=== PATIENT | female | born 1970 | race Caucasian/White ===

== ENCOUNTER 2018-01-05 12:19 | Emergency (ER) | payer MEDICAID, SELFPAY ==
[2018-01-05] VITALS (12 sets, daily range): BP systolic 120–139; BP diastolic 72–97; PULSE 55–90; RESP 10–16; TEMP 36.4–36.7; O2SAT 98–100
[2018-01-05] MEDS: Aspirin 325 MG TAB PO (12:52)
--- NOTE | 2018-01-05 12:55 | ED.GENADUL_ITS ---
Discharge Plan Disposition Patient Disposition: HOME Condition: Good Discharge Details Chief Complaint: Chest Pain Clinical Impression: Chest pain, pleuritic Primary Care Provider: Marlon Levine ED Provider: Suraj Rg Home Meds and New Rx's Prescriptions: Continue riboflavin (vitamin B2) [Vitamin B-2] 100 MG tablet 400 mg PO DAILY RF: 0 cyanocobalamin (vitamin B-12) [Vitamin B-12] 1,000 MCG tablet 1,000 mcg PO QAM RF: 0 ibuprofen 800 MG tablet 800 mg PO Q6H PRN PRN (Reason: pain & fever) Qty: 20 RF: 0 cholecalciferol (vitamin D3) [Vitamin D3] 1,000 unit Capsule 1,000 unit PO DAILY RF: 0 Discharge Instructions Instructions: Chest Pain (ED) Additional Instructions: follow up with your primary care provider within a week and discuss having stress testing performed if you have severe worsening of pain or difficulty breathing return to the emergency department you can take 600mg ibuprofen every 6 hours for pain as needed Discharge Data Discharge Physician: Suraj Rg Medical Decision Making 47 yo female who was treated for breast cancer over 7 years ago and otherwise has no current health problems, denies smoking hx, comes in with anterior sharp chest pain that radiates to the back and worsens with deep breaths since 930am. Denies pain with exertion, fevers, diaphoresis or n/v. Heart score is 1, ecg nondiagnostic, will send troponin. Wells score is moderate given pleuritic nature of pain, will obtain CTA. HAs normal vascular exam so doubt dissection at this time pt's pain resolved with asa, labs unremarkable, awaiting CT CT negative on my read and also per Dr. Tello, remains pain free and hd stable. IS over 3 hours from time of onset of pain so do not feel additional troponin beneficial at this time. ADvised f/u with pcp nexst week and return precautions given. I suspect this was musculoskeltal chest pain at this time Differential Diagnosis chest wall pain, pna, pe, acs Imaging Data Radiologic Study: Attestation: I personally reviewed and interpreted this imaging study as follows: Imaging: CT Scan My impression: NAD Radiologist's impression: NAD per dr. tello ECG Data Attestation: I personally reviewed and interpreted this ECG (s) as follows: Prior ECG tracings: available for review Interpretation: sinus rhythm, short pr, rate of 94, no acute st t wave changes HPI General Mode of arrival: ambulatory . Date/Time Provider Initiated Documentation: 01/05/18 12:40 . Limitations to Documentation: no limitations . Information obtained by: patient . History of Present Illness 47 year old F presents to the emergency department with the chief complaint of chest pain, described as moderate, with intensity rated at 5. Quality is described as stabbing, and is localized to the chest. Patient reports radiation to back. Patient started experiencing this hour(s) (3) and it has been constant. No relieving factors improve symptom(s), Other factors that worsen symptoms (deep breaths) . Patient notes no other symptoms.. Patient did receive the following treatments prior to arrival, none Related Data Home Medications Medication Instructions Recorded Confirmed cyanocobalamin (vitamin B-12) 1,000 mcg PO QAM 01/22/13 01/05/18 [Vitamin B-12] riboflavin (vitamin B2) [Vitamin 400 mg PO DAILY 01/22/13 01/05/18 B-2] ibuprofen 800 mg PO Q6H PRN PRN #20 tablet 07/28/15 01/05/18 cholecalciferol (vitamin D3) 1,000 unit PO DAILY 01/05/18 01/05/18 [Vitamin D3] Previous Rx's Medication Instructions Recorded ibuprofen 800 mg PO Q6H PRN PRN #20 tablet 07/28/15 Allergies Allergy/AdvReac Type Severity Reaction Status Date / Time erythromycin lactobionate Allergy Intermediate Hives Unverified 01/05/18 12:37 [From Erythrocin] General Stated Complaint: Chest Pain ELIEL: 2 Review of Systems Review of Systems All systems reviewed & are unremarkable except as noted in HPI and below Constitutional Denies chills, Denies fever(s) and Denies weakness Eyes Denies loss of vision ENT Denies change in voice Cardiovascular Denies dyspnea Respiratory Denies dyspnea Gastrointestinal Denies abdominal pain, Denies nausea and Denies vomiting Genitourinary Denies dysuria Musculoskeletal Denies joint swelling Integumentary/Breasts Denies rash Neurologic Denies loss of vision and Denies weakness Psychiatric Denies depression PFSH Medical History Breast CA Social History Smoking/Tobacco Use Status: Never Surgical History Breast, Mastectomy Bilateral breast reconstruction Exam Const General: no acute distress Orientation: alert HENMT Head: normal to inspection Ears: external ears normal General nose exam: external nose normal Mouth: moist mucous membranes Eyes General: appearance normal, both eyes and all related structures Neck Neck: normal visual inspection Resp Effort & Inspection: normal respiratory effort and able to speak in complete sentences Cardio Rate: regular rate Skin General skin exam: no rashes or lesions noted Neuro General: alert and oriented x3 Extrem General: normal to inspection Psych Mental Status: mental status grossly normal Course Vital Signs Temperature 36.4 C L 01/05/18 12:32 Pulse 90 01/05/18 12:32 Respiratory Rate 16 01/05/18 12:32 Blood Pressure 139/97 H 01/05/18 12:32 Pulse Oximetry 100 01/05/18 12:32 Temperature 36.4 C L 01/05/18 12:32 Temperature Source Temporal Artery Scan 01/05/18 12:32 Pulse 90 01/05/18 12:32 Respiratory Rate 11 L 01/05/18 12:45 Respiratory Effort 01/05/18 12:45 Respiratory Depth Normal 01/05/18 12:45 Respiratory Pattern Normal 01/05/18 12:45 Blood Pressure 139/97 H 01/05/18 12:32 Blood Pressure Position Supine 01/05/18 12:32 Pulse Oximetry 100 01/05/18 12:32 Oxygen Delivery Method Room Air 01/05/18 12:32 Oxygen Flow Rate 0 01/05/18 12:32 Pain Level 5 01/05/18 12:52
[2018-01-05 13:00] LABS: Abs Immature Grans 0.01 k/cumm (0.0-0.09); Absolute Basophil Count 0.01 k/cumm (0.0-0.2); Absolute Eosinophil Count 0.09 k/cumm (0.0-0.7); Absolute Lymphocyte Count 0.94 k/cumm (1.2-3.4); Absolute Monocyte Count 0.21 k/cumm (0.11-0.7); Absolute Neutrophil Count 1.99 k/cumm (1.2-6.7); Basophils % 0.3; Eosinophils % 2.8; HGB 13.5 g/dL (12.0-15.5); Immature Grans % 0.3; Lymphocytes % 28.9; Mean Corp. HGB Concentration 33.8 g/dL (32.0-36.0); Mean Corpuscular Hemoglobin 31.8 pg (27.0-33.0); Mean Corpuscular Volume 94.1 fL (80-95); Mean Platelet Volume 10.1 fL (8.0-11.0); Monocytes % 6.5; Neutrophils % 61.2; Platelet Count 161 x1000/uL (130-400); RBC 4.25 m/cumm (4.00-5.20); RBC Distribution Width 12.3 % (11.7-14.6); White Blood Cell Count 3.25 k/cumm (4.4-10.8)
[2018-01-05 13:11] LABS: PTT Activated 25.4 sec (21.0-31.4); Prothrombin Time 9.9 sec (9.3-10.8)
[2018-01-05 13:17] LABS: ALT 26 U/L (12-78); AST 21 U/L (15-37); Albumin 3.8 g/dL (3.4-5.0); Alkaline Phosphatase 110 U/L (46-116); BUN 15 mg/dL (7-18); Bilirubin, Total 0.4 mg/dL (0.2-1.0); CREATININE 0.61 mg/dL (0.55-1.02); Calcium 8.8 mg/dL (8.5-10.1); Chloride 106 mmol/L (98-107); Glucose 84 mg/dL (70-100); Magnesium 1.8 mg/dL (1.8-2.4); Potassium 3.9 mmol/L (3.5-5.1); Sodium 142 mmol/L (136-145); Total Protein 7.2 g/dL (6.4-8.2)
[2018-01-05 13:20] LABS: Troponin I < 0.02 ng/mL (0.00-0.06)
--- NOTE | 2018-01-05 13:49 | DI.CT_ITS ---
SYMPTOMS/DIAGNOSIS: PLEURITIC CHEST PAIN CHEST CT FOR PULMONARY EMBOLISM: CT angiography was performed with multi slice acquisition and multi planar and 3D reconstruction. There are no prior comparison exams. The pulmonary arteries, as well as aorta, are well opacified with IV contrast. No pulmonary emboli or aortic dissection is seen. The heart size is normal. There is no evidence of adenopathy, mass, infiltrates or effusions. There are surgical clips seen in the anterior chest wall. The visualized portions of the upper abdomen are unremarkable. Prominent dextroscoliosis is seen at the thoracolumbar junction. No lytic or blastic bony lesions are identified. IMPRESSION: Negative chest CT. No evidence of pulmonary emboli or other acute abnormality.
[2018-01-05] MEDS: Omnipaque 350 MG/ML 100 ML BTL IJ (14:00)
== END 2018-01-05 14:18 | disposition home or self-care (01) ==
PROVIDERS: Emergency Provider Emergency Medicine; PCP Internal Medicine
DX: R07.81 Pleurodynia (principal)
CPT/HCPCS: 36415; 71275; 80053; 93005; 99285; 83735; 84484; 85025; 85610; 85730; 93010; J3490

== ENCOUNTER 2018-01-11 10:36 | Outpatient (REF) | payer MEDICAID, SELFPAY ==
[2018-01-11 16:26] LABS: Cholesterol 308 mg/dL (50-200); HDL Cholesterol 94 mg/dL (40-60); LDL CHOLESTEROL 203 mg/dL (<100); Triglyceride 77 mg/dL (30-150)
== END 2018-01-11 10:56 ==
LOC: NCHCN 10:36
PROVIDERS: PCP Internal Medicine; Visit Provider Family Medicine
DX: Z13.220 Encounter for screening for lipoid disorders (principal); K26.9 Duodenal ulcer, unspecified as acute or chronic, without hemorrhage or perforation; R53.83 Other fatigue; Z87.19 Personal history of other diseases of the digestive system
CPT/HCPCS: 80061; 83721

== ENCOUNTER 2018-01-19 14:09 | Outpatient (REF) | payer MEDICAID, SELFPAY ==
[2018-01-19 21:54] LABS: Vitamin B12 1618 pg/mL (193-986)
== END 2018-01-19 14:29 ==
LOC: NCHCN 14:09
PROVIDERS: PCP Internal Medicine; Visit Provider Nurse Practitioner Family
DX: R51 Headache (principal); E78.5 Hyperlipidemia, unspecified; R07.9 Chest pain, unspecified; R13.10 Dysphagia, unspecified; L29.9 Pruritus, unspecified; G62.9 Polyneuropathy, unspecified
CPT/HCPCS: 82607

== ENCOUNTER 2018-01-19 15:50 | Outpatient (REF) | payer MEDICAID, SELFPAY ==
--- NOTE | 2018-01-19 13:40 | PAPFT_PTH ---
PATIENT: Antonia Jennings LOC: [facility]#:[id number] AGE/SX: 47/F ROOM: RE01/19/[address]: Judy Hawthorne : 1970 BED: DIS: 01/19/2018 SPEC #: [id number] RECD: 01/22/18 12:45 STATUS: [place] REQ #: [id number] PETE: 01/19/18 13:[address]: Judy Hawthorne DEPT: [facility] Cytology RECD BY: Alondra Wright ENTERED: 01/22/18 12:45 SP TYPE: PAPFT OTHR DR: Marlon Levine Tissues: 1 - CX/ENDOCX FOR PAP SMEARS Procedures: PAP THIN PREP/[facility] Screening HPV DNA PROBE Comments: [id number]
== END 2018-01-19 16:10 ==
LOC: NCHCN 15:50
PROVIDERS: PCP Internal Medicine; Visit Provider Nurse Practitioner Family
DX: Z12.4 Encounter for screening for malignant neoplasm of cervix (principal); Z11.51 Encounter for screening for human papillomavirus (HPV)
CPT/HCPCS: 88142; 87624

== ENCOUNTER 2018-01-24 00:53 | Outpatient (CLI) | payer MEDICAID, SELFPAY ==
--- NOTE | 2018-01-24 07:30 | MERGE_ITS ---
*[facility]* *[facility]* [address] [place] [address] Date of study: 01/24/2018 Transthoracic Echocardiography M-mode, complete 2D, complete spectral Doppler, and color Doppler *STUDY CONCLUSIONS* Summary: 1. Left ventricle: The cavity size was normal. Wall thickness was normal. Systolic function was normal. The estimated ejection fraction was 55%. Wall motion was normal; there were no regional wall motion abnormalities. Global longitudinal strain was normal at -20%. 2. Right ventricle: The cavity size was normal. Wall thickness was normal. Systolic function was normal. *PATIENT PRESENTATION* Height: 175.3cm ((69in) ) S/D Pressure: 114 / 74 Weight: 77.1kg ((169.6lb) ) BSA: 1.95m^2 Test start time: 07:46 AM. Test stop time: 09:00 AM. 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 This study was interpreted by [facility]. Pertinent images and digital data are archived for permanent storage and are available for subsequent review. No prior study was available for comparison. Study status: Routine. Transthoracic echocardiography. M-mode, complete 2D, complete spectral Doppler, and color Doppler. A Transthoracic Echocardiogram was performed. Scanning was performed from the parasternal, apical, subcostal, and suprasternal notch acoustic windows. Images were obtained using an [id number] cardiac ultrasound machine. Image quality was adequate. Study completion: The patient tolerated the procedure well. There were no complications. History: PMH: Chest pain. *CARDIAC ANATOMY* Left ventricle: The cavity size was normal. Wall thickness was normal. Systolic function was normal. The estimated ejection fraction was 55%. Wall motion was normal; there were no regional wall motion abnormalities. Global longitudinal strain was normal at -20%. Diastolic parameters were normal. Aortic valve: Trileaflet; normal thickness leaflets. Mobility was not restricted. Doppler: Transvalvular velocity was within the normal range. There was no stenosis. There was no significant regurgitation. VTI ratio of LVOT to aortic valve: 0.86. Valve area (VTI): 2.7cm^2. Indexed valve area (VTI): 1.4cm^2/m^2. Peak velocity ratio of LVOT to aortic valve: 0.92. Valve area (Vmax): 2.9cm^2. Indexed valve area (Vmax): 1.5cm^2/m^2. Mean velocity ratio of LVOT to aortic valve: 0.89. Valve area (Vmean): 2.8cm^2. Indexed valve area (Vmean): 1.4cm^2/m^2. Mean gradient (S): 2.2mm Hg. Peak gradient (S): 3.5mm Hg. Aorta: Aortic root: The aortic root was normal in size. Ascending aorta: The ascending aorta was normal in size. Mitral valve: Mildly thickened leaflets. Mobility was not restricted. Doppler: Transvalvular velocity was within the normal range. There was no evidence for stenosis. There was trivial regurgitation. Valve area by pressure half-time: 3.9cm^2. Indexed valve area by pressure half-time: 2cm^2/m^2. Peak gradient (D): 2.3mm Hg. Left atrium: The atrium was normal in size. Right ventricle: The cavity size was normal. Wall thickness was normal. Systolic function was normal. Pulmonic valve: Doppler: Transvalvular velocity was within the normal range. There was no evidence for stenosis. There was mild regurgitation. Peak gradient (S): 2.7mm Hg. Tricuspid valve: Structurally normal valve. Doppler: Transvalvular velocity was within the normal range. There was no evidence for stenosis. There was trivial regurgitation. Pulmonary artery: Pulmonary systolic pressure was within the normal range, in the range of 25mm Hg to 30mm Hg. Right atrium: The atrium was normal in size. Pericardium: There was no pericardial effusion. Systemic veins: Inferior vena cava: Well visualized. The vessel was patent and normal in size. The respirophasic diameter changes were in the normal range (greater than or equal to 50%). Baseline ECG: Normal sinus rhythm. Measurements Left ventricle Value Reference LV ID, ED, PLAX 4.6 cm 3.5 - 6.0 LV ID, ES, PLAX 3.2 cm 2.1 - 4.0 LV PW thickness, ED, PLAX 1.0 cm LV end-diastolic volume, 1-p A2C 83 ml LV ejection fraction, 1-p A2C 51 % LV end-diastolic volume, 1-p A4C 93 ml LV ejection fraction, 1-p A4C 59 % LV e', medial 0.109 m/sec LV E/e', medial 7 Ventricular septum Value Reference IVS thickness, ED, PLAX 1.2 cm LVOT Value Reference LVOT ID, A-P 2.0 cm LVOT area 3.1 cm^2 LVOT peak velocity, S 0.87 m/sec LVOT mean velocity, S 0.64 m/sec LVOT VTI, S 18.9 cm LVOT peak gradient, S 3 mm Hg LVOT mean gradient, S 1.8 mm Hg Stroke volume (SV), LVOT DP 59 ml Stroke index (SV/bsa), LVOT DP 30 ml/m^2 Aortic valve Value Reference Aortic valve peak velocity, S 0.9 m/sec Aortic valve mean velocity, S 0.72 m/sec Aortic valve VTI, S 22.0 cm Aortic mean gradient, S 2.2 mm Hg Aortic peak gradient, S 3.5 mm Hg VTI ratio, LVOT/AV 0.86 Aortic valve area, VTI 2.7 cm^2 Velocity ratio, peak, LVOT/AV 0.92 Aortic valve area, peak velocity 2.9 cm^2 Velocity ratio, mean, LVOT/AV 0.89 Aortic valve area, mean velocity 2.8 cm^2 Aortic valve area/bsa, mean velocity 1.4 cm^2/m^2 Aorta Value Reference Aortic root ID, ED 3.2 cm Ascending aorta ID, A-P, S 3.3 cm RVOT Value Reference RVOT VTI, S 16.1 cm Left atrium Value Reference LA ID, A-P, ES 3.0 cm LA ID/bsa, A-P 1.5 cm/m^2 <=2.2 LA area, ES, A4C 13.2 cm^2 8.8 - 23.4 LA area, ES, A2C 13 cm^2 LA volume/bsa, ES, 1-p A4C 19 ml/m^2 LA volume, ES, 2-p 33 ml LA volume/bsa, ES, 2-p 17 ml/m^2 LA/aortic root ratio 0.94 Mitral valve Value Reference Mitral E-wave peak velocity 0.76 m/sec Mitral A-wave peak velocity 0.42 m/sec Mitral deceleration time 194 ms 150 - 230 Mitral pressure half-time 56 ms Mitral peak gradient, D 2.3 mm Hg Mitral E/A ratio, peak 1.82 Mitral valve area, PHT, DP 3.9 cm^2 Pulmonary veins Value Reference Pulmonary vein peak velocity, S 0.59 m/sec Pulmonary vein peak velocity, D 0.61 m/sec Pulmonary vein velocity ratio, peak, 0.97 S/D Pulmonary vein A-wave reversal peak 0.31 m/sec velocity Tricuspid valve Value Reference Tricuspid regurg peak velocity 2.5 m/sec Tricuspid peak RV-RA gradient 24.5 mm Hg Right atrium Value Reference RA area, ES, A4C 14.2 cm^2 8.3 - 19.5 Pulmonic valve Value Reference Pulmonic peak gradient, S 2.7 mm Hg Legend: (L) and (H) jd values outside specified reference range. I have personally reviewed the images and have reviewed and edited the reported findings. Electronically signed by Akshat Perez 01/24/2018 10:11
== END 2018-01-24 01:13 ==
PROVIDERS: PCP Internal Medicine; Visit Provider Family Medicine
DX: R07.89 Other chest pain (principal)
CPT/HCPCS: 93306

== ENCOUNTER 2018-03-02 11:51 | Outpatient (REF) | payer MEDICAID, SELFPAY ==
--- NOTE | 2018-03-02 11:30 | ENDO_PTH ---
PATIENT: Antonia Jennings LOC: [facility] U#:[id number] AGE/SX: 47/F ROOM: RE03/02/[address]: Svetlana Cavanaugh MD : 1970 BED: DIS: 03/02/2018 SPEC #: [id number] RECD: 03/02/18 12:56 STATUS: [place] REQ #: [id number] PETE: 03/02/18 11:[address]: Svetlana Cavanaugh DEPT: Surgical Specimen RECD BY: Alondra Wright ENTERED: 03/02/18 12:56 SP TYPE: Endo OTHR DR: Marlon Levine Tissues: 1 - ENDOCERVICAL BX/CURRETTE Procedures: GROSS AND MICRO LEVEL 4 Comments: [id number]
== END 2018-03-02 12:11 ==
LOC: LBN 11:51
PROVIDERS: PCP Internal Medicine; Visit Provider Obstetrics & Gynecology
DX: N88.8 Other specified noninflammatory disorders of cervix uteri (principal); R87.610 Atypical squamous cells of undetermined significance on cytologic smear of cervix (ASC-US)
CPT/HCPCS: 88305

== ENCOUNTER 2019-01-15 09:28 | Day surgery (SDC) | payer MEDICAID, SELFPAY ==
[2019-01-15 09:47] VITALS: BP 128/88; PULSE 93; RESP 17; TEMP 36; O2SAT 99
--- NOTE | 2019-01-15 10:26 | W.PM.DSUDISC ---
Discharge Plan Disposition Patient Disposition: HOME Condition: Good Discharge Details Reason For Visit: Colonoscopy Attending Provider: Zuleika Holguin Primary Care Provider: Marlon Levine Home Meds and New Rx's Prescriptions: Continued ibuprofen [Advil] 200 mg tablet 600 mg PO QID PRNRF: 0 fluticasone propionate 50 mcg/actuation spray,suspension 2 spray BERNABE BID RF: 0 Excedrin Migraine 250-250-65 mg tablet 2 tab PO Q6H PRNRF: 0 acetaminophen [Tylenol] 325 mg capsule 325 mg PO Q6H PRNRF: 0 magnesium oxide 500 mg capsule 500 mg PO DAILY RF: 0 docusate sodium [Colace] 100 mg capsule 200 mg PO DAILY RF: 0 polyethylene glycol 3350 [Miralax] 17 gram/dose powder 17 gm PO DAILY Qty: 119 RF: 1 cinnamon bark [Cinnamon] 500 mg capsule 500 mg PO DAILY RF: 0 ascorbic acid (vitamin C) 500 mg capsule 500 mg PO DAILY RF: 0 riboflavin (vitamin B2) [Vitamin B-2] 100 MG tablet 400 mg PO DAILY RF: 0 cholecalciferol (vitamin D3) [Vitamin D3] 1,000 unit Capsule 1,000 unit PO DAILY RF: 0 Discontinued polyethylene glycol 3350 17 gram/dose powder 238 g PO ONCE Qty: 238 RF: 0 bisacodyl 5 mg tablet,delayed release (DR/EC) 5 mg PO ONCE Qty: 4 RF: 0 Discharge Instructions Additional Instructions: Findings: Your colonoscopy was normal Follow up: Plan for routine screening in 10 years or sooner if symptoms occur. Try daily Miralax for constipation. If this is not helpful, please contact my office to discuss further testing. Please call if you develop: fevers >101.5 Nausea or Vomiting Abdominal pain that is not transient DAY SURGERY UNIT POST COLONOSCOPY INSTRUCTIONS 1. Because there will be medication in your system for the next 24 hours, you may feel a little sleepy. Your coordination will be affected. Therefore: a. Do not drive or operate dangerous equipment for 24 hours. b. Do not drink alcohol beverages for 24 hours (not even beer). c. Plan to go home and rest for the day. 2. Generally there are no restrictions on your activity after a day or so has gone by, but you may feel a bit fatigued for a few days. 3 After you arrive home you may have a light meal and return to a normal diet as you can tolerate it without feeling sick to your stomach. 4. After surgery, you may feel pain or discomfort. This should be only transient, but if it persists please contact your doctor. 5. If there are any questions regarding the findings of your procedure, please feel free to contact your doctor. 6. If you are unable to contact your doctor with a problem, contact the hospital at [phone]. 7. Continue all your regular medications unless directed otherwise. I understand the above instructions and have no questions. Signature of Patient or Responsible Adult Escort Date/Time Name of Responsible Adult Escort Signature of Nurse Date/Time Stand Alone Forms: Edgard Garcia (AMAURYU) Activity:: Activity as Tolerated Diet:: As Tolerated Discharge Orders Discharge Orders: Discharge Order (Routine); Ordered 01/15/19 Ordered By: Zuleika Holguin DS: Diagnosis Discharge Diagnosis (1) Constipation: Status: Acute
[2019-01-15] MEDS: Lactated Ringers 1,000 ML 80 ML IV (10:36)
[2019-01-15 11:56] VITALS: BP 134/86; PULSE 67; RESP 17; TEMP 36; O2SAT 100
--- NOTE | 2019-01-15 13:11 | COLE_ITS ---
DATE OF PROCEDURE: January 15, 2019 PREOPERATIVE DIAGNOSIS: Change in bowel habits. POSTOPERATIVE DIAGNOSIS: Normal colon. PROCEDURE: Colonoscopy. SURGEON: Zuleika Holguin M.D. ANESTHESIA: General. INDICATIONS: This is a 48-year-old woman who notes increasing constipation. She will often have to manually assist a bowel movement. She has not had a prior colonoscopy. There is no family history o f colon cancer. PROCEDURE: The patient was placed in the left Monteiro position. Propofol was titrated to sedation. Di gital rectal examination revealed normal sphincter tone. No other abnormalities were identified. Th e scope was advanced to the cecum without difficulty. The ileocecal valve and appendiceal orifice we re clearly identified. The scope was slowly withdrawn with no significant abnormalities seen within the ascending, transverse, descending, sigmoid colon or rectum. Her prep was noted to be marginal an d I did spend a lot of time suctioning thick but liquid stool. A small polyp could be missed. The r ectum was normal, including on retroflex view. She tolerated the procedure well and was stable to re covery. She will try titrating MiraLax to effect and if there is no improvement here then considerat ion could be given to referral to a colorectal specialist for more functional testing, such as defeco graphy. She will need a follow-up screening again in ten years or sooner if symptoms indicate. cc: Marlon Levine M.D.
== END 2019-01-15 12:20 | disposition home or self-care (01) ==
PROVIDERS: PCP Internal Medicine; Visit Provider Surgery
PROC: 0DJD8ZZ Inspection of Lower Intestinal Tract, Via Natural or Artificial Opening Endoscopic (ICD-10-PCS; CPT 45378; principal; 2019-01-15 10:30)
DX: K59.00 Constipation, unspecified (principal); G47.33 Obstructive sleep apnea (adult) (pediatric)
CPT/HCPCS: 45378

== ENCOUNTER 2019-02-17 11:59 | Emergency (ER) | payer MEDICAID, SELFPAY ==
[2019-02-17] VITALS (26 sets, daily range): BP systolic 117–146; BP diastolic 73–101; PULSE 77–118; RESP 12–23; TEMP 36.8–36.9; O2SAT 95–98
[2019-02-17] MEDS: Acetaminophen 500 MG TAB 1000 MG PO (13:31)
[2019-02-17] MEDS: Metoclopramide 10 MG/2 ML VIAL IVP (13:32)
[2019-02-17] MEDS: Normal Saline 50 ML 200 ML (13:32)
[2019-02-17] MEDS: Ketorolac 15 MG/ML VIAL IVP (13:33)
[2019-02-17 14:05] LABS: Abs Immature Grans 0.01 k/cumm (0.0-0.09); Absolute Basophil Count 0.01 k/cumm (0.0-0.2); Absolute Eosinophil Count 0.09 k/cumm (0.0-0.7); Absolute Lymphocyte Count 1.11 k/cumm (1.2-3.4); Absolute Monocyte Count 0.44 k/cumm (0.11-0.7); Basophils % 0.2; Eosinophils % 1.5; HCT 46.9 % (36.0-46.0); HGB 15.6 g/dL (12.0-15.5); Immature Grans % 0.2; Mean Corp. HGB Concentration 33.3 g/dL (32.0-36.0); Mean Corpuscular Hemoglobin 30.6 pg (27.0-33.0); Mean Corpuscular Volume 92.1 fL (80-95); Monocytes % 7.1; Platelet Count 178 x1000/uL (130-400); RBC 5.09 m/cumm (4.00-5.20); RBC Distribution Width 12.6 % (11.7-14.6); White Blood Cell Count 6.16 k/cumm (4.4-10.8)
--- NOTE | 2019-02-17 14:15 | ED.GENADUL_ITS ---
Discharge Plan Disposition Patient Disposition: HOME Condition: Improving Discharge Details Chief Complaint: GenMedical Clinical Impression: Acute dehydration, Headache Primary Care Provider: Marlon Levine ED Provider: Judy Gardner Home Meds and New Rx's Prescriptions: No Action ibuprofen [Advil] 200 mg tablet 600 mg PO QID PRNRF: 0 fluticasone propionate 50 mcg/actuation spray,suspension 2 spray BERNABE BID RF: 0 Excedrin Migraine 250-250-65 mg tablet 2 tab PO Q6H PRNRF: 0 acetaminophen [Tylenol] 325 mg capsule 325 mg PO Q6H PRNRF: 0 magnesium oxide 500 mg capsule 500 mg PO DAILY RF: 0 docusate sodium [Colace] 100 mg capsule 200 mg PO DAILY RF: 0 polyethylene glycol 3350 [Miralax] 17 gram/dose powder 17 gm PO DAILY Qty: 119 RF: 1 cinnamon bark [Cinnamon] 500 mg capsule 500 mg PO DAILY RF: 0 ascorbic acid (vitamin C) 500 mg capsule 500 mg PO DAILY RF: 0 riboflavin (vitamin B2) [Vitamin B-2] 100 MG tablet 400 mg PO DAILY RF: 0 cholecalciferol (vitamin D3) [Vitamin D3] 1,000 unit Capsule 1,000 unit PO DAILY RF: 0 Discharge Instructions Instructions: Dehydration (ED), General Headache (ED) Additional Instructions: Drink plenty of fluids. Observe closely for any signs of dehydration Rest activities as tolerated. Use Tylenol or Motrin for headache management if needed [id number]. Recheck with primary care doctor in the next 2 to 3 days for any persistence of your symptoms. Return for any worsening, concerns or alarming symptoms sooner if needed. Medical Decision Making Is a 48-year-old patient who presents after diagnosis of influenza with 5 days of illness. Patient is concerned primarily with dehydration. Patient reports she has had decreased p.o. intake but no associated nausea, vomiting or diarrhea. Has had night sweats and fevers. Patient is being managed with conservative treatments for her diagnosed influenza. Patient denies increasing difficulty breathing with shortness of breath or wheezing. Has no active chest pain. A mild productive cough. Patient reports decreased urine output and fatigue. Patient reports widespread body ache. Patient does appear dehydrated and is notably tachycardic at this time. IV fluids ordered. Patient also is reporting a developing migraine. Patient reports headache is mild to moderate at this time certainly not the worst of her life. But she feels she is likely going to have a migraine her headache is not managed. She tried ibuprofen at 6 AM without relief. Toradol ordered for patient's migraine in addition to IV fluids. Chest x-ray ordered, labs ordered for reevaluation. Patient feeling significantly improved after IV fluids and Toradol. Patient feels normal. Headache is resolved. Patient feels stable for discharge home at this time. Chest x-ray does not reveal any sign of infection. There is no evidence of acute cardiopulmonary disease on patient's x-ray. Patient counseled regarding influenza and dehydration. At this time there is no sign of secondary infection. The patient was stable and requested discharge. Prior to discharge, my usual and customary return precautions were reviewed with the patient - this included follow-up instructions and reasons to return to the Emergency Department if conditions worsens, does not improve as expected, or other new concerns arise. Patient was counseled regarding conservative treatments, but continued observation for HPI General Date/Time Provider Initiated Documentation: 02/17/19 12:09 . HPI Narrative: Is a very pleasant 48-year-old patient who presents to the emergency room today for concerns of dehydration. Patient reports she was swabbed positive for influenza. Patient reports she has had 5 days of upper respiratory symptoms specifically nasal congestion, cough, sinus pressure. Patient reports no associated nausea, vomiting or diarrhea. Patient denies significant abdominal pain however she reports significant fatigue, malaise, achiness. Patient has had decreased appetite for the last several days. Today patient began to feel quite dry and dehydrated. Patient reports decreased urine output but no associated urinary urgency, frequency or dysuria. Patient reports she does have a migraine history and reports onset of a mild headache. She is concerned with potential developing migraine. Patient reports she did take ibuprofen at approximately 6:00 this morning. Patient denies difficulty breathing or shortness of breath or wheezing. Mild cough present with occasional sputum production. No concerns of chest or back pain. Patient primarily concerned with possible dehydration and onset of headache. No associated neck pain. Related Data Home Medications Medication Instructions Recorded Confirmed riboflavin (vitamin B2) [Vitamin 400 mg PO DAILY 01/22/13 02/17/19 B-2] cholecalciferol (vitamin D3) 1,000 unit PO DAILY 01/05/18 02/17/19 [Vitamin D3] acetaminophen 325 mg capsule 325 mg PO Q6H PRN 10/31/18 11/24/19 [id number] 250 2 tab PO Q6H PRN 01/24/18 02/17/19 mg-250 mg-65 mg tablet fluticasone propionate 50 2 spray BERNABE BID gm 01/24/18 02/17/19 mcg/actuation nasal spray,suspension ibuprofen 200 mg tablet 600 mg PO QID PRN tab 01/24/18 02/17/19 magnesium oxide 500 mg capsule 500 mg PO DAILY cap 01/24/18 02/17/19 docusate sodium 100 mg capsule 200 mg PO DAILY cap 12/24/18 02/17/19 polyethylene glycol 3350 17 17 gm PO DAILY #119 gm 12/24/18 02/17/19 gram/dose oral powder ascorbic acid (vitamin C) 500 mg 500 mg PO DAILY 01/07/19 02/17/19 capsule cinnamon bark 500 mg capsule 500 mg PO DAILY 01/07/19 02/17/19 Previous Rx's Medication Instructions Recorded polyethylene glycol 3350 17 17 gm PO DAILY #119 gm 12/24/18 gram/dose oral powder Allergies Allergy/AdvReac Type Severity Reaction Status Date / Time chlorhexidine Allergy Intermediate hives, itch Verified 02/17/19 12:17 erythromycin lactobionate Allergy Intermediate Hives Unverified 02/17/19 12:17 [From Erythrocin] General Stated Complaint: GenMedical ELIEL: 3 Review of Systems All systems reviewed & are unremarkable except as noted in HPI and below Constitutional Constitutional: Reports chills, Reports fatigue, Reports headache(s), Reports malaise, Reports night sweats and Reports poor appetite Eyes Eyes: Denies eye discharge ENT Ears, Nose, Mouth, and Throat: Denies otalgia, Reports headache(s), Reports nasal congestion, Reports nasal discharge and Reports sinus pressure Cardiovascular Cardiovascular: Denies dyspnea Respiratory Respiratory: Reports cough, Denies pain on inspiration, Denies pain with cough, Denies dyspnea and Denies wheezing Gastrointestinal Gastrointestinal: Denies abdominal pain, Denies diarrhea, Denies nausea and Denies vomiting Genitourinary Genitourinary: Denies hematuria and Denies urinary urgency Neurologic Neurologic: Reports headache(s) Endocrine Endocrine: Reports fatigue Allergic/Immunologic Allergic/Immunologic: Denies wheezing PFSH Medical History Abnormal Pap smear of cervix (Resolved) Breast CA (Resolved) Chemotherapy-induced peripheral neuropathy (Chronic) Chest pain (Resolved) DANTE III (cervical intraepithelial neoplasia III) (Acute 12/01/15) Dysphagia (Resolved) Gastritis (Acute) Generalized pruritus (Acute) Headache (Resolved) History of breast cancer (Resolved) Hx of breast cancer (Acute 01/22/13) Hyperlipidemia (Acute) Jaw pain (Resolved) LGSIL on Pap smear of cervix (Acute 11/16/15) Migraine (Chronic) Neuropathy (Resolved) Pancreatitis (Chronic) Sleep apnea (Acute) Social History Smoking/Tobacco Use Status: Never Alcohol Intake: current Alcohol Intake frequency: holidays/special occasions only Alcohol type: hard liquor Drug use: Never Substance use type: does not use 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 Well hydrated. Alert and alert. HENMT: Head nomocephalic, normal to inspection. Atraumatic. Hearing grossly normal. External ear canal no erythema or swelling. TM normal bilaterally. Nose normal to inspection. No rhinnorhea. Normal facial exam. Oral mucosa dry. Tounge normal. Dentition normal. Normal posterior oropharynx. Uvula midline. EYES: General normal appearance. Alignment normal. Eyelids normal. Conjunctiva n ormal. Sclera normal. PERRL. NECK: Normal visual inspection. FROM. Cervical lymphadenopathy present. Trachea midline. No Midline tenderness. No meningeal signs CHEST: Normal insepection of the chest. RESP: Normal respiratory effort. Speaking full sentences. No cough. No wheezing. No retractions. Clear to auscaltation. Breath sound equal and present bilaterally. CARDIO: No JVD. Normal PMI. Regular Rate. Regular Rhythm. Normal peripheral pulses. GI: Normal inspection of abdomen. No distension. Soft. Nontender. Bowel sounds present in all 4 quadrants. No rebound. No gaurding. MUSCULOSKELETAL: Normal Gait. FROM of all extremities. Distal neurovascularly intact. Sensation intact distally. SKIN: Normal. Dry. No rashes. NEURO: Alert and awake. Speech clear. PSYCH: Normal affect. Cooperative. Course Vital Signs Vital signs: Vital Signs Temperature 36.8 C 02/17/19 12:05 Pulse 118 H 02/17/19 12:05 Respiratory Rate 16 02/17/19 12:05 Blood Pressure 146/101 H 02/17/19 12:05 Pulse Oximetry 97 02/17/19 12:05 Temperature 36.8 C 02/17/19 12:05 Temperature Source Oral 02/17/19 12:05 Pulse 87 02/17/19 13:31 Pulse 86 02/17/19 13:31 Respiratory Rate 16 02/17/19 13:31 Respiratory Effort 02/17/19 12:14 Respiratory Depth Normal 02/17/19 12:14 Respiratory Pattern Normal 02/17/19 12:14 Blood Pressure 137/81 02/17/19 13:31 Blood Pressure Mean 95 02/17/19 13:31 Blood Pressure Position Sitting 02/17/19 12:05 Pulse Oximetry 98 02/17/19 13:31 Oxygen Delivery Method Room Air 02/17/19 12:05 Oxygen Flow Rate 0 02/17/19 12:05 Pain Level 7 02/17/19 13:31 Lab/Test Results Lab/Test Results: Laboratory Tests Range/Units 02/17/19 13:55 WBC (4.4-10.8) k/cumm 6.16 RBC (4.00-5.20) m/cumm 5.09 Hgb (12.0-15.5) g/dL 15.6 H Hct (36.0-46.0) % 46.9 H MCV (80-95) fL 92.1 MCH (27.0-33.0) pg 30.6 MCHC (32.0-36.0) g/dL 33.3 RDW (11.7-14.6) % 12.6 Plt Count (130-400) x1000/uL 178 MPV (8.0-11.0) fL 10.0 Immature Gran % 0.2 Neutrophils % 73.0 Lymphocytes % 18.0 Monocytes % 7.1 Eosinophils % 1.5 Basophils % 0.2 Absolute Neutrophils (1.2-6.7) k/cumm 4.50 Absolute Lymphocytes (1.2-3.4) k/cumm 1.11 L Absolute Monocytes (0.11-0.7) k/cumm 0.44 Absolute Eosinophils (0.0-0.7) k/cumm 0.09 Absolute Basophils (0.0-0.2) k/cumm 0.01
[2019-02-17 14:17] LABS: ALT 21 U/L (14-59); AST 18 U/L (15-37); Albumin 3.9 g/dL (3.4-5.0); Alkaline Phosphatase 131 U/L (46-116); BUN 15 mg/dL (7-18); Bilirubin, Total 0.3 mg/dL (0.2-1.0); CREATININE 0.59 mg/dL (0.55-1.02); Calcium 9.1 mg/dL (8.5-10.1); Chloride 103 mmol/L (98-107); Glucose 95 mg/dL (74-106); Potassium 4.1 mmol/L (3.5-5.1); Sodium 142 mmol/L (136-145)
--- NOTE | 2019-02-17 14:25 | DI.RAD_ITS ---
EXAM: XR CHEST 2V PA LATERAL INDICATION: cough, known flu r/o pneumonia. COMPARISON: No exams were available for comparison TECHNIQUE: 2D digital imaging was performed. FINDINGS: Heart size is normal. Multiple surgical clips are seen over the left chest. The lungs appear clear. Scoliosis is noted. IMPRESSION: No acute abnormality.
--- NOTE | 2019-02-17 14:53 | DI.VRAD_ITS ---
PROCEDURE INFORMATION: Exam: XR Chest, 2 Views Exam date and time: 02/17/2019 1:18 PM Age: 48 years old Clinical history: Cough TECHNIQUE: Imaging protocol: XR of the chest Views: 2 views. COMPARISON: CR (CHEST, RT) 07/28/2015 1:33 PM FINDINGS: Surgical clips projected over the left lung unchanged from the prior exam. The lung peters are clear bilaterally. No focal pulmonary consolidation is present. The cardiac silhouette is within normal limits. The costophrenic angles are sharp. The bony structures appear unremarkable. IMPRESSION: No evidence of acute cardiopulmonary disease. Dictated and Authenticated by: Micheal Collins MD. Ordering:BRITTON Kim MD
== END 2019-02-17 15:55 | disposition home or self-care (01) ==
PROVIDERS: Emergency Provider Physician Assistant; PCP Internal Medicine
DX: E86.0 Dehydration (principal); R51 Headache; J10.89 Influenza due to other identified influenza virus with other manifestations
CPT/HCPCS: 36415; 80053; 96374; 96375; 99284; 71046; 85025; J1885; J2765

== ENCOUNTER 2019-10-08 10:57 | Outpatient (REF) | payer MEDICAID, SELFPAY ==
[2019-10-08 21:52] LABS: TSH 1.57 uIU/mL (0.36-3.74); Vitamin B12 1042 pg/mL (193-986)
[2019-10-08 22:13] LABS: FREE T4 1.07 ng/dL (0.76-1.46)
== END 2019-10-08 11:17 ==
LOC: NCHCN 10:57
PROVIDERS: PCP Internal Medicine; Visit Provider Internal Medicine
DX: G60.9 Hereditary and idiopathic neuropathy, unspecified (principal)
CPT/HCPCS: 82607; 84439; 84443

== ENCOUNTER 2019-10-25 02:07 | Outpatient (CLI) | payer MEDICAID, SELFPAY ==
[2019-10-25 13:01] LABS: Hemoglobin A1C 5.7 % (3.8-5.6)
[2019-10-28 12:28] LABS: Albumin 65.3 % (55.8-66.1); Total Protein 6.9 g/dL (6.3-8.2)
== END 2019-10-25 02:27 ==
PROVIDERS: PCP Internal Medicine; Visit Provider Psychiatry & Neurology Neurology
DX: G62.9 Polyneuropathy, unspecified (principal)
CPT/HCPCS: 36415; 83036; 84165

== ENCOUNTER 2020-01-03 14:29 | Outpatient (REF) | payer MEDICAID, SELFPAY ==
--- NOTE | 2020-01-03 13:45 | PAPFT_PTH ---
PATIENT: Antonia Jennings LOC: [facility] U#:[id number] AGE/SX: 49/F ROOM: RE01/03/[address]: Mauro Garcia MD : 1970 BED: DIS: 01/03/2020 SPEC #: [id number] RECD: 01/03/20 17:15 STATUS: [place] REBlake #: [id number] PETE: 01/03/20 13:[address]: Mauro Garcia DEPT: [facility] Cytology RECD BY: Kierra Cohen ENTERED: 01/03/20 17:24 SP TYPE: PAPFT OTHR DR: Marlon Levine Tissues: 1 - CX/ENDOCX FOR PAP SMEARS Procedures: PAP THIN PREP/UVM Screening HPV DNA PROBE Comments: [id number]
== END 2020-01-03 14:49 ==
LOC: LBN 14:29
PROVIDERS: PCP Internal Medicine; Visit Provider Obstetrics & Gynecology
DX: Z12.4 Encounter for screening for malignant neoplasm of cervix (principal); Z11.51 Encounter for screening for human papillomavirus (HPV)
CPT/HCPCS: 88142; 87624

== ENCOUNTER 2020-06-03 17:25 | Outpatient (CLI) | payer MEDICAID, SELFPAY ==
--- NOTE | 2020-06-03 17:15 | RT.EKG_ITS ---
APPROVED REPORT Exam: Resting ECG Patient Location: O HR:88 bpm ECG Measurements Heart Rate 88 AXIS OH 116 P 71 QRSd 89 QRS 69 QT 363 T 46 QTc 439 Conclusion Sinus rhythm...normal P axis, V-rate 60- 99
== END 2020-06-03 17:26 | disposition home or self-care (01) ==
LOC: DI.CM 17:28
PROVIDERS: PCP Internal Medicine; Visit Provider Nurse Practitioner Family
DX: R55 Syncope and collapse (principal); R42 Dizziness and giddiness; R00.0 Tachycardia, unspecified
CPT/HCPCS: 93010

== ENCOUNTER 2020-06-09 02:34 | Outpatient (CLI) | payer MEDICAID, SELFPAY ==
[2020-06-09 12:32] LABS: Abs Immature Grans 0.01 10^3/uL (0.0-0.06); Absolute Basophil Count 0.03 10^3/uL (0.0-0.2); Absolute Eosinophil Count 0.15 10^3/uL (0.0-0.7); Absolute Lymphocyte Count 1.44 10^3/uL (1.2-3.4); Absolute Monocyte Count 0.35 10^3/uL (0.1-0.8); Absolute Neutrophil Count 2.59 10^3/uL (1.2-6.7); Basophils % 0.7; Eosinophils % 3.3; HCT 43.1 % (36.0-46.0); HGB 14.1 g/dL (11.2-15.7); Immature Grans % 0.2; Lymphocytes % 31.5; MCH 30.2 pg (27.0-33.0); MCHC 32.7 % (32.0-36.0); MCV 92.3 fL (80-95); MPV 10.8 fL (8.0-11.0); Monocytes % 7.7; Neutrophils % 56.6; Nucleated RBC 0 %; Platelet Count 222 10^3/uL (130-400); RBC 4.67 10^6/uL (3.93-5.22); RDW 12.4 % (11.7-14.6); RDW-SD 41.6 fL; WBC 4.57 10^3/uL (4.4-10.8)
[2020-06-09 12:56] LABS: Anion Gap 7.8 mmol/L (3-11); BUN 13 mg/dL (7-18); CO2 29.2 mmol/L (21.0-32.0); CREATININE 0.7 mg/dL (0.55-1.02); Calculated LDL 145 mg/dL (<100); Chloride 105 mmol/L (98-107); Cholesterol 238 mg/dL (<200); Glucose 79 mg/dL (74-106); HDL Cholesterol 82 mg/dL (40-60); Potassium 4.2 mmol/L (3.5-5.1); Sodium 142 mmol/L (136-145); TSH 2.09 uIU/mL (0.36-3.74); Triglyceride 55 mg/dL (<150)
[2020-06-09 13:18] LABS: NT-proBNP 133 pg/mL (<300)
== END 2020-06-09 02:35 | disposition home or self-care (01) ==
LOC: LOS 02:34
PROVIDERS: PCP Internal Medicine; Visit Provider Nurse Practitioner Family
DX: R42 Dizziness and giddiness (principal); E78.5 Hyperlipidemia, unspecified; R00.0 Tachycardia, unspecified; R00.2 Palpitations; R06.02 Shortness of breath
CPT/HCPCS: 36415; 80048; 80061; 83880; 84443; 85025

== ENCOUNTER 2020-06-09 13:31 | Outpatient (CLI) | payer MEDICAID, SELFPAY ==
--- NOTE | 2020-06-29 12:12 | ZIOP_ITS ---
Date of service: 06/29/20 Time of Service: 12:13 14 Day [employer] Specialist Referring Provider:: Jamar Indications:: Syncope Note: This is a 14-day monitor order for indication of syncope. ?The patient was in normal sinus rhythm for the majority of the recording with an average heart rate of 85 bpm. ?There were 14 episodes of supraventricular tachycardia with the longest lasting 6 beats. None of these were symptomatic. There were rare PACs ?There was 1 episode of NSVT lasting 4 beats. This too was asymptomatic. ?There were no episodes of atrial fibrillation, no pauses greater than 3 seconds and no evidence of high degree heart block. ?There were 9 patient triggered events 1 of which was associated with sinus tachycardia the rest with sinus rhythm and occasional PAC.
== END 2020-06-09 13:32 | disposition home or self-care (01) ==
LOC: RT 13:33
PROVIDERS: PCP Internal Medicine; Visit Provider Nurse Practitioner Family
CPT/HCPCS: 93246

== ENCOUNTER 2020-06-12 05:00 | Outpatient (CLI) | payer MEDICAID, SELFPAY ==
--- NOTE | 2020-06-12 07:45 | DI.US_ITS ---
EXAM: US CAROTID CLINICAL HISTORY: dizziness,R42. TECHNIQUE: Ultrasound carotids performed using grayscale, color-flow, and spectral Doppler imaging. COMPARISON: No exams were available for comparison FINDINGS: RIGHT CAROTID ARTERY: Plaque: None Velocity elevation: None. LEFT CAROTID ARTERY: Plaque: None Velocity elevation: None. VERTEBRAL ARTERIES: Antegrade flow. Measurements: R Bulb: 65.6cm/s PS / 13.5cm/s ED R CCA: 79.1cm/s PS / 20.6cm/s ED R ECA: 71.3cm/s PS / 11.6cm/s ED R ICA Prox: 70.1cm/s PS /20.6cm/s ED R ICA Mid: 92.5cm/s PS / 33.4cm/s ED R ICA Distal: 99.6cm/s PS /32.8cm/s ED R Vert: 56.6cm/s PS / 13.5cm/s ED R SVR: 1.26 R DVR: 1.59 L Bulb: 45cm/s PS /9cm/s ED L CCA: 81cm/s PS / 21.2cm/s ED L ECA: 80.3cm/s PS /10.3cm/s ED L ICA Prox:72cm/s PS / 21.9cm/s ED L ICA Mid: 99cm/sPS / 39.2cm/s ED L ICA Distal: 108cm/s PS / 37.3cm/s ED L Vert: 48.2cm/s PS / 16.1cm/s ED L SVR: 1.33 L DVR: 1.76 IMPRESSION: Normal. No significant plaque. No evidence for hemodynamically significant carotid stenosis. Criteria for Carotid Stenosis: Normal: ICA PSV <125 cm/s no plaque or intimal thickening is visible. <50% stenosis: ICA PSV <125 cm/s and plaque or intimal thickening is visible. 50-69% stenosis: ICA PSV is 125-250 cm/s and plaque is visible. >70% stenosis to near occlusion: ICA PSV >250 cm/s with visible plaque and luminal narrowing. DATA REPOSITORY:
== END 2020-06-12 05:20 ==
PROVIDERS: PCP Internal Medicine; Visit Provider Nurse Practitioner Family
DX: R42 Dizziness and giddiness (principal)
CPT/HCPCS: 93880

== ENCOUNTER 2020-07-06 01:40 | Outpatient (CLI) | payer MEDICAID, SELFPAY ==
--- NOTE | 2020-07-06 | ETT_ITS ---
APPROVED REPORT Exam: Exercise Treadmill Patient Location: Out-Patient Room/Bed: Stress Nurse: Margot Navarro RN Ordering Provider:MORRIS CARTAGENA, Contact Number: [phone] BMI: 27.76 Baseline Rhythm: Sinus Rhythm Indications: Near syncope, nonsustained ventricular tachycardia Medical History Medical History: ÁNGEL, breast cancer, chemo-induced peripheral neuropathy, HLD, overweight Cardiac Medications: None Allergies: chlorhexidine, erythromycin, lactobionate Cardiac Risk Factors: HLD, family hx Previous Cardiac Procedures: None Pretest Chest Pain Characteristics: None Exercise History: Sedentary Physical Disabilities: None Lung Sounds: Clear to auscultation Heart Sounds: Regular Stress Test Details Test: Exercise stress testing was performed using a Altaf protocol. Rest Stress HR Resting HR Supine: 71 bpm Max Heart Rate (APMHR): 172 bpm Resting HR Standin bpm Target HR (85% APMHR): 146 bpm Max HR Achieved: 176 bpm % of APMHR: 102 Recovery HR: 94 bpm HR response to stress: Normal HR response to stress BP Resting BP Supine: 122/74 mmHg Resting BP Standin/76 mmHg Max BP: 150/70 mmHg Recovery BP: 118/72 mmHg BP response to stress: Normal blood pressure response to stress. ECG Resting ECG: Sinus Rhythm Ectopy: None Stress ECG: Sinus Tachycardia ST Change: Horizontal ST depression Lead(s): II, III Stage: [address] Deviation: 1 mm Arrhythmia: None Recovery ECG: Sinus Rhythm Recovery ST Change: Horizontal ST depression Lead(s): II, III Recovery ST Deviation: 1 mm Recovery Arrhythmia: PVC Clinical Reason for Termination: Fatigue Stress Symptoms: General Fatigue Exercise duration: 9 min33 sec Highest Stage Reached: Stage 4: 4.2 mph at 16% grade. Exercise capacity: 11.05 METs Bain Treadmill Score: 4 Rate Pressure Product: [id number] Stress ECG Conclusion 1. The resting electrocardiogram showed left ventricular hypertrophy with minor repolarization abnorm alities 2. Patient exercised on the Altaf protocol and completed a workload of 11.05 METS, stopping due to fa tigue 3. Normal heart rate and blood pressure response to exercise. The patient achieved greater than 100% of predicted heart rate for age 4. At peak exercise there was inferolateral ST depression consistent with myocardial ischemia . the ST depressions gradually improved by minute 5 of recovery 5. Rare PVCs were seen Bain Treadmill Score is 4 which is Moderate risk. Stress Test Summary STAGE Time (mins) Speed (mph) Grade (%) HR BP SYMPTOMS METS Supine 71 122/74 Standing 89 120/76 1 3 1.7 10 126 128/72 4.6 2 6 2.5 12 152 140/70 7 3 9 3.4 14 171 148/66 10.2 1 min recovery 150 150/70 3 min recovery 103 136/72 6 min recovery 94 118/72
== END 2020-07-06 02:00 ==
PROVIDERS: PCP Internal Medicine; Visit Provider Internal Medicine
DX: R55 Syncope and collapse (principal); I47.2 Ventricular tachycardia; E78.5 Hyperlipidemia, unspecified; Z82.49 Family history of ischemic heart disease and other diseases of the circulatory system; I49.3 Ventricular premature depolarization
CPT/HCPCS: 93017

== ENCOUNTER 2020-07-10 03:51 | Outpatient (CLI) | payer MEDICAID, SELFPAY ==
--- NOTE | 2020-07-10 08:31 | DI.US_ITS ---
APPROVED REPORT EXAM: Comprehensive 2D, Doppler, and color-flow Echocardiogram Patient Location: Out-Patient Beef Grader: Kary Green RDCS (AE) Indications: Nonsustained ventricular tachycardia, Near syncope Other Information Study Quality: Adequate Conclusion Normal left ventricular wall thickness and chamber size. Estimated ejection fraction is 60%. There are no segmental wall motion abnormalities Normal right ventricular size and systolic function Both atria are normal in size There are no structural valvular abnormalities Trace to mild mitral and tricuspid regurgitation. Estimated right ventricular systolic pressure is n ormal at 21 mmHg Borderline dilated ascending aorta Wall motion Left Ventricle The left ventricle is normal size. The left ventricular systolic function is normal. The left ventric ular ejection fraction is within the normal range. There is normal left ventricular wall thickness. T here is normal LV segmental wall motion. There is no ventricular septal defect visualized. LVEF is 57 %. Right Ventricle The right ventricle is normal size. The right ventricular systolic function is normal. The RVSP is 21 .8mmHg. Atria The left atrium size is normal. The right atrium size is normal. The interatrial septum is intact wit h no evidence for an atrial septal defect. Aortic Valve The aortic valve is normal in structure. Aortic valve is trileaflet. There is no aortic valvular sten osis. No aortic regurgitation is present. Mitral Valve The mitral valve is normal in structure. No evidence of mitral valve stenosis. Trace to mild mitral r egurgitation. Tricuspid Valve The tricuspid valve is normal in structure. There is no tricuspid valve stenosis. Trace to mild tricu spid regurgitation. Pulmonic Valve The pulmonary valve is normal in structure. There is no pulmonic valvular stenosis. Trace pulmonic re gurgitation. Great Vessels The aortic root is normal in size. The ascending aorta is mildly dilated. Aortic arch is not well vis ualized. IVC is normal in size and collapses >50% with inspiration. Pericardium There is no pericardial effusion. 2D Dimensions IVSD d PLAX 0.94 cm F: 0.6-1.0 LV Vol A2C d MOD 99.2 mL LVPW d PLAX 0.92 cm F: 0.6 - 1.0 LV Vol A4C d MOD 118.5 mL LVID d PLAX 4.49 cm F: 3.8 - 5.2 LA vol/ BSA A2C s A-L 20.2 mL/m2 LVDs 3.10 cm F: 2.2 - 3.5 LA vol/ BSA A4C s A-L 20.3 mL/m2 Ao Root d 3.23 cm F: 2.7 - 3.3 LA Vol/ BSA Biplane s A-L 21.8 mL/m2 RA Area A4C 12.58 cm2 LA Area A4C s MOD 16.06 cm2 RA Vol/ BSA A4C s A-L 15.9 mL/m2 LA Area A2C s MOD 14.87 cm2 Ao Asc Diam d 3.36 cm F: 2.3 - 3.1 LV EF A4C MOD 57.4 % LV EF Teichholz 57.7 % LV EF A2C MOD 57.5 % LVEF (Melton's) 57.91 % F: 54 - 74 LV EF Biplane MOD 57.9 % LV Volume 84.66 mL F: 46 - 106 SV 65.50 mL LV Volume Index 42.11 mL/m2 F: 29 - 61 SV Index 32.55 mL/m2 LV Vol Biplane MOD 113.1 mL FS 30.20 % M-Mode TAPSE 2.52 cm (M/F) >1.7 LV Diastology MV E' medial 0.127 (>0.07 m/s) E/A Ratio 1.4 LV E/e MED 6.35 (<14) MV E Vmax 0.81 (0.4-1.3 m/s) MV E' lateral 0.135 (>0.1 m/s) MV A Vmax 0.60 (0.4-1.3 m/s) LV E/e LAT 6.00 (<14) MV E/A Ratio 1.31 MV E/E' medial 6.39 MV E/E' lateral 6.01 Aortic Valve LVOT Area 2.62 cm2 AoV Area Vmax 2.38 cm2 LVOT Vmax 1.02 m/s AoV Area/ BSA (Vmax) 1.18 cm2/m2 LVOT Mean Sukh. 0.71 m/s ANNMARIE Mean Sukh. 2.07 cm2 LVOT Peak Grad 4.1 mmHg ANNMARIE Mean Sukh. Index 1.03 cm2/m2 LVOT Mean Grad 2.3 mmHg LVOT VTI 0.218 m LVOT Diam s 1.80 cm AoV Vmax 1.12 m/s Velocity Ratio 0.91 AoV Mean Sukh. 0.90 m/s AoV Peak Grad 5.0 mmHg LVOT SV 57.08 mL AoV Mean Grad 3.3 mmHg AoV VTI 0.219 m AoV Area VTI 2.60 cm2 AoV Area/ BSA (VTI) 1.29 cm/m2 Mitral Valve MV DT 164 (160-240 msec) MV PHT 48 msec MV Area PHT 4.62 cm2 MV VTI 0.263 m MV VTI Annulus 0.286 m MV Area VTI 2.38 (4.0-6.0 cm2) Pulmonary Valve PV Vmax 0.90 (0.5-1.5 m/s) RVOT Peak Gr. 1.51 mmHg PV Peak Grad 3.2 mmHg RVOT Mean Gr. 0.70 mmHg PV Mean Grad 1.7 mmHg RVOT VTI 0.115 m PV VTI 0.178 m RVOT Vmax 0.62 m/s Tricuspid Valve TR Peak Grad 18.8 mmHg TR Vmax 2.17 m/s RA Pressure 3.00 mmHg RVSP (TR) 21.8 mmHg
== END 2020-07-10 04:11 ==
PROVIDERS: PCP Internal Medicine; Visit Provider Internal Medicine
DX: I47.2 Ventricular tachycardia (principal); R55 Syncope and collapse
CPT/HCPCS: 93306

== ENCOUNTER 2020-08-13 01:32 | Outpatient (CLI) | payer MEDICAID, SELFPAY ==
--- NOTE | 2020-08-13 07:15 | DI.NM_ITS ---
APPROVED REPORT Exam: Exercise Treadmill Patient Location: Out-Patient Room/Bed: Stress Nurse: Margot Navarro RN Ordering Provider:FELY KESSLER, Contact Number: [phone] BMI: 28.05 Baseline Rhythm: Sinus Rhythm Comment: Minimal ST depression, inferior leads Medical History Medical History: Hyperlipidemia, ÁNGEL, gastritis, duodenal ulcer, checmo-thearpy induced peripheral ne uropathy Cardiac Medications: Atorvastatin, aspirin Allergies: Chlorhexidine, erythromycin, lactobionate Cardiac Risk Factors: Hyperlipidemia, family hx Previous Cardiac Procedures: None Pretest Chest Pain Characteristics: None Exercise History: Sedentary Physical Disabilities: None Lung Sounds: Clear to auscultation Heart Sounds: Regular Stress Test Details Test: Exercise stress testing was performed using a Altaf protocol. Nuclear Acquisition: Rest Tc-99m/Stress Tc-99m 1 day Rest Isotope: Tc-99m Sestamibi. Dose: 11.3 Date: 08/13/2020 Injection Time: 0945 Stress Isotope: Tc-99m Sestamibi. Dose: 37.0 Date: 08/13/2020 Injection Time: 1237 HR Resting HR Supine: 76 bpm Max Heart Rate (APMHR): 172 bpm Resting HR Standin bpm Target HR (85% APMHR): 146 bpm Max HR Achieved: 171 bpm % of APMHR: 99 Recovery HR: 95 bpm HR response to stress: Normal HR response to stress BP Resting BP Supine: 118/80 mmHg Resting BP Standin/82 mmHg Max BP: 158/78 mmHg Recovery BP: 126/74 mmHg BP response to stress: Normal blood pressure response to stress. ECG Resting ECG: Sinus Rhythm Ectopy: None Stress ECG: Sinus Tachycardia ST Change: Horizontal and downsloping ST depression Lead(s): II, III, aVF Stage: [address] Deviation: 1 mm Arrhythmia: None Recovery ECG: Sinus Rhythm Recovery ST Change: Horizontal ST depression Lead(s): II, III, AVF Recovery ST Deviation: 0.5 mm Recovery Arrhythmia: Rare PVC Clinical Reason for Termination: Fatigue Stress Symptoms: General Fatigue Exercise duration: 9 min34 sec Highest Stage Reached: Stage 4: 4.2 mph at 16% grade. Exercise capacity: 11.10 METs Rate Pressure Product: 40752 Stress ECG Conclusion 1. The patient exercised for 9 minutes (11 METS). Patient's heart rate and blood pressure augmented appropriately with stress. 2. At peak stress patient had 1 mm horizontal and downsloping ST depressions in the inferior leads. Stress Test Summary STAGE Time (mins) Speed (mph) Grade (%) HR BP SYMPTOMS METS Supine 76 118/80 Standing 89 120/82 1 3 1.7 10 120 126/78 4.6 2 6 2.5 12 146 144/76 7 3 9 3.4 14 162 10.2 1 min recovery 143 158/78 3 min recovery 98 140/74 6 min recovery 95 126/74 MPI Conclusion Ejection fraction was 52% with stress. There were no wall motion abnormalities. There is no evidence of ischemia on the imaging portion exam. This likely represents a normal SPECT stress test and a false positive abnormal ECG result.
== END 2020-08-13 01:52 ==
PROVIDERS: PCP Internal Medicine; Visit Provider Internal Medicine Cardiovascular Disease
DX: R94.39 Abnormal result of other cardiovascular function study (principal)
CPT/HCPCS: 78452; 93017

== ENCOUNTER 2020-08-26 15:08 | Outpatient (REF) | payer MEDICAID, SELFPAY | END 2020-08-26 15:09 | disposition home or self-care (01) | LOC: NCHCN 15:08 | PROVIDERS: PCP Internal Medicine; Visit Provider Internal Medicine | DX: R30.0 Dysuria (principal) | CPT/HCPCS: 87077; 87086; 87186 ==

== ENCOUNTER 2020-09-19 02:08 | Emergency (ER) | payer MEDICAID, SELFPAY ==
[2020-09-19 02:10] VITALS: BP 150/88; PULSE 88; RESP 16; TEMP 36.6; O2SAT 98
--- NOTE | 2020-09-19 02:51 | ED.GENADUL_ITS ---
Discharge Plan Disposition Patient Disposition: HOME Condition: Stable Discharge Details Clinical Impression: Achilles tendinitis, right leg Primary Care Provider: Marlon Levine ED Provider: Chuck Faulkner Home Meds and New Rx's Prescriptions: No Action No Known Home Meds RF: 0 Discharge Instructions Instructions: Tendinitis (ED) Additional Instructions: Use crutches and only light weightbearing with right foot. Rest over the next few days. Please take ibuprofen over the counter. Take 600mg by mouth every 6 hours as needed for pain. Please contact orthopedics to arrange follow-up. Return to the ER for any worsening or new concerning symptoms. Referrals: [facility] [Provider Group] Discharge Data Discharge Date/Time-TO BE ENTERED AT DEPARTURE: 09/19/20 03:30 Medical Decision Making 50-year-old female here with 6 weeks of heel pain, worse today after running. Exam is consistent with Achilles tendinitis. Lidocaine patch was applied to the area and patient was provided ibuprofen 800 mg. x-ray of the ankle was reviewed and interpreted by me: No fracture, small calcification at insertion site for Achilles tendon. Will provide crutches and have the patient follow-up with orthopedics. HPI General Mode of arrival: ambulatory . Date/Time Provider Initiated Documentation: 09/19/20 02:36 . Limitations to Documentation: no limitations . Information obtained by: patient . HPI Narrative: 50-year-old female presents with chief complaint of right heel pain. Patient notes that she has had pain in her right heel for the past 6 weeks. Pain is waxed and waned. Today she went for a hike and had to at 1 point run out of the [employer] for emergency and thinks she may have injured her heel worse. Pain is now severe described as burning. Pain is localized to the posterior ankle and calcaneus. Worse with ambulation. Tylenol did not help. She has mild associated swelling of her heel. she has no associated rash. No associated fever. No other joint swelling. Related Data Home Medications Medication Instructions Recorded Confirmed Unknown [No Known Home Meds] 09/19/20 09/19/20 Allergies Allergy/AdvReac Type Severity Reaction Status Date / Time chlorhexidine Allergy Intermediate hives, itch Verified 09/19/20 02:20 erythromycin lactobionate Allergy Intermediate Hives Unverified 09/19/20 02:20 [From Erythrocin] General Stated Complaint: Orthopedic ELIEL: 4 Review of Systems Constitutional Constitutional: Denies fever(s) Musculoskeletal Musculoskeletal: Reports as per HPI Integumentary/Breasts Skin/Breast: Reports rash (Chronic dry skin distal lateral leg extremity, unchan ged) [facility] Medical History Arm paresthesia, left Bilateral carpal tunnel syndrome Chemotherapy-induced peripheral neuropathy Chest pain DANTE III (cervical intraepithelial neoplasia III) (12/01/15) Cubital tunnel syndrome on right Duodenal ulcer Dysphagia Gastritis Generalized pruritus Headache Hx of breast cancer (01/22/13) 01/2005. L breast T2N0M0. Infiltrating ductal carcinoma. s/p chemo and XRT. 07/2007. T1N0M0. Adjuvant chemo. 10/2008.Bilateral prophylactic mastectomy. Staged breast reconstruction Neg BRCA-1,2. ANGELA neg. Hyperlipidemia Jaw pain Knee joint pain LGSIL on Pap smear of cervix (11/16/15) Menopause Migraine ÁNGEL (obstructive sleep apnea) Pancreatitis Pruritus Shoulder joint pain Sleep apnea Surgical History breast reconstruction Breast, Mastectomy Bilateral H/O tubal ligation Hx of Achilles tendon repair Family History Father Hypothyroidism Hyperlipidemia CAD (coronary artery disease) Depression COPD (chronic obstructive pulmonary disease) Mother Hypothyroidism Goiter Memory impairment Sister Breast cancer Social History Smoking/Tobacco Use Status: Never Smoking risk assessment performed?: Yes Alcohol Intake: current Alcohol Intake frequency: holidays/special occasions only Alcohol type: hard liquor Drug use: Never Substance use type: does not use Household members: significant other Housing: house Number of Children: 1 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 Seatbelt use: always Do you feel safe at home: Yes Do you feel safe in your relationship?: Yes Exam Const General: cooperative and no acute distress Cardio Rate: regular rate and not tachycardic Rhythm: regular rhythm Skin General skin exam: no rashes or lesions noted Neuro General: patient alert, patient awake, patient oriented x3 and tone normal Extrem General: no edema Right lower extremity: foot Details: normal capillary refill, tenderness Location: of the calcaneus Details: point tenderness (Posteriorly at insertion of Achilles tendon), warmth (Mild at insertion of Achilles tendon with associated), tendon exam Details: active flexion normal and active extension normal, motor-sensory exam Details: light-touch normal and other (Negative Nolan test) Course Vital Signs Vital signs: Vital Signs Temperature 36.6 C 09/19/20 02:10 Pulse 88 09/19/20 02:10 Respiratory Rate 16 09/19/20 02:10 Blood Pressure 150/88 H 09/19/20 02:10 Pulse Oximetry 98 09/19/20 02:10 Temperature 36.6 C 09/19/20 02:10 Temperature Source Oral 09/19/20 02:10 Pulse 88 09/19/20 02:10 Respiratory Rate 16 09/19/20 02:10 Respiratory Effort Non-Labored 09/19/20 02:21 Blood Pressure 150/88 H 09/19/20 02:10 Blood Pressure Position Sitting 09/19/20 02:10 Pulse Oximetry 98 09/19/20 02:10 Oxygen Delivery Method Room Air 09/19/20 02:10 Oxygen Flow Rate 0 09/19/20 02:10 Pain Level 8 09/19/20 02:10
--- NOTE | 2020-09-19 03:04 | DI.RAD_ITS ---
Exam(s) XR ANKLE RT COMPLETE EXAM: XR ANKLE RT COMPLETE CLINICAL HISTORY: pain. TECHNIQUE: 2D digital imaging was performed. COMPARISON: No exams were available for comparison FINDINGS: Is no evidence of fracture nor widening of the mortise. No osteochondral defects of the talar dome. Moderate size inferior calcaneal spur is noted as is calcification at the insertional aspect of the Achilles tendon on the posterior calcaneus. IMPRESSION: No fractures evident DATA REPOSITORY: RADIATION DOSE DELIVERED:
[2020-09-19] MEDS: Lidocaine 5% Patch 1 PATCH TP (03:29)
[2020-09-19] MEDS: Ibuprofen 800 MG TAB PO (03:29)
--- NOTE | 2020-09-19 04:14 | DI.VRAD_ITS ---
PROCEDURE INFORMATION: Exam: XR Right Ankle Exam date and time: 09/19/2020 2:38 AM Age: 50 years old Clinical indication: Pain; Ankle; Right; Patient HX: Was running and heard a pop. TECHNIQUE: Imaging protocol: XR Right ankle. Views: 3 or more views. COMPARISON: NM WHOLE BODY BONE SCAN 06/13/2017 1:08 PM FINDINGS: Bones/joints: Plantar calcaneal spurring. Posterior calcaneal enthesophyte. No displaced fractures or dislocations. Soft tissues: Grossly unremarkable. IMPRESSION: No displaced fractures or dislocations. Dictated and Authenticated by: Tex Ness MD. Ordering:LISA Woods MD
--- NOTE | 2020-09-19 11:44 | NUR.NOTE ---
Nursing Note: Was asked by night staff to call patient so see if she would like the ankle walking boot. I called the patient and she stated that yes she did want it and would I ask her father, who is here with her mother, to bring it home for her. He stated he would and the boot was given to him. Ingrid Yu
== END 2020-09-19 03:30 | disposition home or self-care (01) ==
PROVIDERS: Emergency Provider Student in an Organized Health Care Education/Training Program; PCP Internal Medicine
DX: M76.61 Achilles tendinitis, right leg (principal)
CPT/HCPCS: 99283; 73610

== ENCOUNTER 2020-10-05 03:04 | Outpatient (CLI) | payer MEDICAID, SELFPAY ==
[2020-10-05 12:26] LABS: Source Nasal/Nares
[2020-10-05 16:02] LABS: COVID-19 PCR Negative (Negative)
== END 2020-10-05 03:05 | disposition home or self-care (01) ==
LOC: LBO 03:04
PROVIDERS: PCP Internal Medicine; Visit Provider Student in an Organized Health Care Education/Training Program
DX: Z20.822 Contact with and (suspected) exposure to COVID-19 (principal); Z01.818 Encounter for other preprocedural examination
CPT/HCPCS: 87635

== ENCOUNTER 2020-10-06 10:33 | Day surgery (SDC) | payer MEDICAID, SELFPAY ==
[2020-10-06 10:40] VITALS: BP 123/89; PULSE 90; RESP 16; TEMP 36.1; O2SAT 97
[2020-10-06] MEDS: Lactated Ringers 1,000 ML 80 ML IV (11:08)
--- NOTE | 2020-10-06 11:12 | W.ANESPRE ---
General Info Date of Service Date Performed: 10/06/20 Height: 5 ft 9 in Weight: 89.358 kg Body Mass Index (BMI): 29.0 Surgical Procedure: Operation Date: 10/06/20 12:55 Proposed Procedures Side Surgeon p Ankle Achilles Tendon Debridement Right Sumit Saucedo MD s CALCANEAL OSTECTOMY WITH HAGLAND RESECTION AND ACHILLES REPAIR Right Sumit Saucedo MD Meds Allergies and Home Medications Allergies Allergy/AdvReac Type Severity Reaction Status Date / Time chlorhexidine Allergy Intermediate hives, itch Verified 10/06/20 10:50 erythromycin lactobionate Allergy Intermediate Hives Verified 10/06/20 10:50 [From Erythrocin] Home Medication Medication Instructions Recorded Unknown [No Known Home Meds] 09/19/20 Current Visit Medications: Current Medications Generic Name Dose Route Start Last Admin Trade Name Freq PRN Reason Stop Dose Admin Ringer's Solution 1,000 mls @ 80 mls/hr 10/06/20 06:00 10/06/20 11:08 IV 11/04/20 23:59 80 mls/hr INFUSION JAREN Administration Cefazolin Sodium/Dextrose 2 gm in 50 mls @ 100 mls/hr 10/06/20 06:00 Ancef Duplex IVPB 10/06/20 16:00 PREOP JAREN IV Miscellaneous Supplies 1 each 10/06/20 06:00 Iv Access IV 11/04/20 23:59 DIRECTED JAREN Sodium Chloride 0 ml 10/06/20 06:00 Normal Saline Flush 10 Ml Syr IV 11/04/20 23:59 PRN PRN Sodium Chloride 0 ml 10/06/20 06:00 Normal Saline 10 Ml Vial IJ 11/04/20 23:59 DIRECTED PRN Sterile Water 0 ml 10/06/20 06:00 Water,Injection,Sterile 10 Ml Vial IJ 11/04/20 23:59 DIRECTED PRN PFSH Active Problems Active Problems: Problem Status Onset Code High risk HPV infection 10/13/15 B97.7 Moderate dysplasia of cervix (DANTE II) 12/01/15 N87.1 Constipation K59.00 Achilles tendinitis, right leg M76.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 states she had this fully worked up, it was not chest pain, but she was dehydrated. DANTE III (cervical intraepithelial neoplasia III) (12/01/15) Cubital tunnel syndrome on right Duodenal ulcer Dysphagia Gastritis Generalized pruritus Headache Hx of breast cancer (01/22/13) 01/2005. L breast T2N0M0. Infiltrating ductal carcinoma. s/p chemo and XRT. 07/2007. T1N0M0. Adjuvant chemo. 10/2008.Bilateral prophylactic mastectomy. Staged breast reconstruction Neg BRCA-1,2. ANGELA neg. Hyperlipidemia Jaw pain Knee joint pain LGSIL on Pap smear of cervix (11/16/15) Menopause Migraine ÁNGEL (obstructive sleep apnea) Pancreatitis Pruritus Shoulder joint pain Sleep apnea Surgical History Surgical History breast reconstruction Breast, Mastectomy Bilateral H/O tubal ligation Hx of Achilles tendon repair Tobacco Smoking/Tobacco Use Status: Never Alcohol Alcohol Intake: current Alcohol intake frequency: holidays/special occasions only Alcohol type: hard liquor Substance Use Substance use: Never Substance use type: does not use Vital Signs and Lab Results Vital Signs Most Recent Vital Signs in EMR: Most Recent Vital Signs Temp Pulse Resp BP Pulse Ox 36.1 C L 90 16 123/89 97 10/06/20 10:40 10/06/20 10:40 10/06/20 10:40 10/06/20 10:40 10/06/20 10:40 Lab Results Blood Type / Crossmatch: No Data to Display Complete Blood Count: No Data to Display Complete Metabolic Panel: No Data to Display Liver Function Panel: No Data to Display Coagulation Panel: No Data to Display Cardiac Panel: No Data to Display Arterial Blood Gas: No Data to Display Venous Blood Gas: No Data to Display Pancreas Panel: No Data to Display Thyroid Panel: No Data to Display Infectious Disease: Coronavirus (COVID-19)(PCR) Negative (Negative) 10/05/20 08:43 10/05/20 Coronavirus 2019 Source Nasal/Nares 10/05/20 08:43 10/05/20 Blood Cultures: No Data to Display Toxicology Panel: No Data to Display Panel: No Data to Display Imaging and Studies Imaging and Studies EKG Summary: DATE/TIME OF SERVICE: 06/03/20 1746 Conclusion Sinus rhythm...normal P axis, V-rate 60- 99 Stress Test Summary: Date of Exam: 08/13/20Sex: F Admission Date: 08/13/20 MPI Conclusion Ejection fraction was 52% with stress. There were no wall motion abnormalities. There is no evidence of ischemia on the imaging portion exam. This likely represents a normal SPECT stress test and a false positive abnormal ECG result. Echocardiogram Summary: Date of Exam: 07/10/20Sex: F Admission Date: 07/10/20 Indications: Nonsustained ventricular tachycardia, Near syncope Conclusion Normal left ventricular wall thickness and chamber size. Estimated ejection fraction is 60%. There are no segmental wall motion abnormalities Normal right ventricular size and systolic function Both atria are normal in size There are no structural valvular abnormalities Trace to mild mitral and tricuspid regurgitation. Estimated right ventricular systolic pressure is normal at 21 mmHg Borderline dilated ascending aorta Carotid Artery Summary:: Date of Exam: 06/12/20Sex: F Admission Date: 06/12/20 EXAM: US CAROTID CLINICAL HISTORY: dizziness,R42. IMPRESSION: Normal. No significant plaque. No evidence for hemodynamically significant carotid stenosis. Anesthesia Assessment and Plan Anesthesia History Personal History: Delayed Emergence Family History: No Family History of Anesthesia Complications Exercise Tolerance Exercise Tolerance: Metabolic Equivalents>4 Pertinent Negatives Pertinent Negatives: No Symptoms of GERD, No Major Cardiovascular Symptoms or Complaints and No Major Pulmonary Symptoms or Complaints Cardiac & Pulmonary Exam Cardiac Exam: Normal S1/S2 Heart Sounds Pulmonary Exam: Clear Bilateral Breath Sounds Airway Exam Known Difficult Airway: No Mallampati Class: 2 Mouth Opening: Normal (> 3cm) Thyromental Distance: Greater than 3 cm Neck Range of Motion: Full ROM Neck Circumference: Normal Teeth Condition: Normal Dentition ASA Classification ASA Score: ASA 2 Emergency Case?: No NPO Status NPO Status: NPO Clears >2 hours, Solids >8 hours Status Status: Not Relevant due to Medical History and Not Per Patient Anesthesia Plan Resuscitation Status: Full Code Anesthesia Technique: Spinal Anesthesia Airway Planned: Natural Airway Monitors Used: Standard Monitors
[2020-10-06 11:34] VITALS: BMI 29.0
--- NOTE | 2020-10-06 12:01 | PDOC.DSDIS_ITS ---
Discharge Plan Disposition Patient Disposition: HOME Condition: Good Discharge Details Reason For Visit: Right Achilles Tendinitis; Right Joaquin Deformity Attending Provider: Sumit Saucedo Primary Care Provider: Marlon Levine [place] Meds and New Rx's Prescriptions: New hydrocodone-acetaminophen 5-325 mg tablet 1 tab PO Q6H PRN (Reason: severe pain) Qty: 6 RF: 0 acetaminophen 500 mg tablet 500 mg PO Q6H PRN (Reason: pain) Qty: 60 RF: 2 ibuprofen 600 mg tablet 600 mg PO TID PRN (Reason: pain) Qty: 60 RF: 0 Discharge Instructions Additional Instructions: Achilles debridement discharge: You are PARTIAL WEIGHT BEARING. You may rest your foot on the ground to support yourself and for balance. You should keep the leg elevated as much as possible. You may wiggle your toes and move your hip and knee. Dressings: You should keep your dressing clean and dry. Do NOT get wet or dirty. You may remove the foot from the boot and support the leg to keep the heel elevated, keeping pressure off of the heel. Your boot must be on for any walking or moving. The initial dressing may be removed after 3 days, but I would recommend keeping it in place as long as possible and then keep covered with a gauze. It may get wet after 3 days. Medications: - You should take Tylenol and Ibuprofen around the clock for baseline pain. - You have been prescribed a stronger narcotic, Hydrocodone, for breakthrough pain. Follow-up: 2 weeks Referrals: Sumit Saucedo MD [ [facility] STAFF PHYSICIAN] - Equipment/Supplies: Non-Weight Bearing Crutches and Splint Activity:: Elevate Remove Dressings/Wound Care:: 72 hours Shower/Bathe:: 72 hours and Cover Diet:: As Tolerated Discharge Orders Discharge Orders: Discharge Order (Routine); Ordered 10/06/20 Ordered By: Suad Hernandze DS: Diagnosis Discharge Diagnosis (1) Achilles tendinitis, right leg: Status: Acute (2) Joaquin's deformity of right heel: Status: Acute
[2020-10-06] MEDS: Bupivacaine 0.25% Pres-Free 30 ML VIAL (13:47)
[2020-10-06 14:08] VITALS: BP 131/87; PULSE 78; RESP 14; TEMP 36.2; O2SAT 99
--- NOTE | 2020-10-06 14:34 | W.ANESPOSTOP ---
Postoperative Evaluation Date, Time and Location Date Performed: 10/06/20 Time Performed: 14:34 Patient Location: Day Surgery Unit Vital Signs Most Recent Imported Vital Signs: Most Recent Vital Signs Temp Pulse Resp BP Pulse Ox 36.2 C L 78 14 131/87 99 10/06/20 14:08 10/06/20 14:08 10/06/20 14:08 10/06/20 14:08 10/06/20 14:08 Pain Score Most Recent Pain Score: Most Recent Pain Score Pain Level 0 10/06/20 14:08 Assessment Mental Status: Awake (Alert & Oriented to Patient Baseline) Airway and Respiratory Function: Patent airway with normal (patient baseline) respiratory exam Cardiovascular Function: Hemodynamically Stable Hydration Status: Adequately Hydrated Nausea & Vomiting: No Nausea or Vomiting Pain: Pt. Denies Any Pain Peripheral Nerve Block: Patient did not receive a nerve block
[2020-10-06 14:38] VITALS: BP 132/82; PULSE 63; RESP 16; TEMP 36.6; O2SAT 99
--- NOTE | 2020-10-06 20:52 | ROE_ITS ---
Date of service: 10/06/20 Time of Service: 14:02 Operative Note Operative Note DATE OF PROCEDURE: 10/06/20 PRE-OP DIAGNOSIS: Insertional Calcific Tendinitis of Achilles Tendon, with Joaquin Deformity - RIGHT POST-OP DIAGNOSIS: same PROCEDURE: Open debridement of calcaneal bone spurs and calcific Achilles tendinitis with Joaquin resection and Achilles repair - RIGHT SURGEON: Sumit Saucedo GREEN MARKETING SPECIALIST: Cyndy Soria ANESTHESIA TYPE: Spinal Refer to Anesthesia Record ESTIMATED BLOOD LOSS: 20 PATHOLOGY: none sent TOURNIQUET TIME: 0 COMPLICATIONS: None Patient was transported to: PACU Indications: Antonia is a 50 year old female who has had persistent pain about the heel. Clinical evaluation and x-rays demonstrated clear calcific tendinitis of the Achilles insertion with a Joaquin deformity. She has failed a host of conservative options but continues to have pain and difficulty with shoe wear. She had the same diagnosis treated with surgery on the left with good results. Therefore, I offered operative intervention in the form of Achilles debridement, bony prominence (Joaquin) resection, and Achilles tendon repair as indicated. I reviewed the risk of the procedure to include bleeding, infection, pain, stiffness, damage to nerves and vessels, weakness, Achilles rerupture or retear, wound healing complications. Despite these risk,she elected to proceed. Findings: There were notable calcific prominence of the calcaneal tuberosity which were resected and the calcaneus smoothed. The Joaquin deformity was resected with a chisel and Achilles repaired back down to the calcaneus with suture anchors in a double row technique. Procedure Description: Antonia was greeted in the preoperative holding area. Identity was confirmed the correct side was identified and marked. Consent was reviewed the patient and signed. History of physical was updated. She was taken to the operating room. A spinal anesthetic was administered and then the patient was placed into the prone position. Chest rolls were placed to well-padded the chest and allow for chest expansion. The arms were placed in the 90-90 position with all bony prominences well-padded. There was gel pad placed underneath the knees and a prone ramp was placed underneath the operative leg. No tourniquet was used. Prophylactic antibiotics in the form of cefazolin were given. A timeout was performed for safe surgery. The right leg was p repped with DuraPrep. The proposed surgical site was then injected with a mixture of 0.25% bupivacaine and Exparel. Approximately 6 to 7 cc was used for this part of the procedure and the remainder of the mixture was utilized in the deeper tissues at the end of the case. A midline incision was then made overlying the Achilles tendon and its insertion on the calcaneus. This incision was taken down all the way to the peritenon of the Achilles tendon and its insertion on the calcaneus. Full- thickness flaps were then elevated medially and laterally to better expose Achilles tendon and its insertion. A midline incision was then made within the Achilles tendon. The tendon was elevated off of the calcaneus medially and laterally leaving some bands at the far reaches for later tensioning of the Achilles tendon. Calcific deposits from in the tendon were then removed sharply. Prominences over the calcaneal tuberosity were also removed with a rongeur until there is no prominence of the bone over the posterior aspect of the calcaneus. This bony deposition was more prominent laterally than medially and a larger portion of the Achilles tendon was removed laterally rather than medially. I took a chisel to then resect any Joaquin deformity. This was checked by dorsiflexing the foot and inspecting for any impingement of the calcaneal prominence onto the Achilles tendon I also used a chisel to chamfer the medial lateral prominences of the calcaneal tuberosity as well. Once this was completed I then inspected the calcaneal insertion for any remnant sharp prominences or calcifications. A rasp was also used to smooth this down fully until there is no prominence projecting either posteriorly, medially, laterally. There is still attachments with Achilles tendon both medially and laterally. I then placed a single 6.5 mm Mitek Fastin anchor into the superior margin of the calcaneal tuberosity. I placed a locking Krak?w type suture into each side of the Achilles tendon with 1 limb of the suture from the anchor. The extra limb of the suture was then passed through the tendon wants to serve as a john. Once these both were passed I was able to shuttle the tendon back down to the bone by pulling on the free limb of the suture. The sutures were then tied which reapproximated the Achilles tendon down to the tuberosity quite nicely. I also took a #2 OrthoCord to reapproximate the tendon split in the Achilles through its entire length. Using the tails of the suture as well as the remnant tails from the previously tied sutures, I incorporated these into two Mytec Healix 4.75 mm knotless anchor; one placed laterally and one placed medially. This reapproximated the tendon over the entire footprint of the calcaneus. The suture limbs were then cut. The periphery of the Achilles tendon slit was inspected and any residual split of the tendon was reapproximated. The wounds and thoroughly irrigated. The deep tissues were anesthetized with the remainder of the mixture of 0.25% bupivacaine with Exparel. The Achilles peritenon was closed with a running 3-0 Vicryl suture. The deep tissue was closed with 3-0 Vicryl followed by a 4-0 nylon. Xeroform, 4 x 4, ABD, web roll was applied to the foot in a short leg splint was placed. The patient was then placed into the supine position. There is no notable complications from the prone positioning of the surgery. Antonia was then transitioned back to the hospital stretcher in a stable condition. The procedure was tolerated well and the patient was transferred back to the PACU in stable condition.
== END 2020-10-06 15:35 | disposition home or self-care (01) ==
PROVIDERS: PCP Internal Medicine; Visit Provider Student in an Organized Health Care Education/Training Program
PROC: (CPT 11043; principal; 2020-10-06 12:45)
PROC: (CPT 27650; 2020-10-06 12:45)
DX: M76.61 Achilles tendinitis, right leg (principal); M92.61 Juvenile osteochondrosis of tarsus, right ankle; M77.31 Calcaneal spur, right foot
CPT/HCPCS: 27654; 28119; C1713; J1885; J2250; J2405

== ENCOUNTER 2021-03-12 03:23 | Outpatient (CLI) | payer MEDICAID, SELFPAY ==
[2021-03-12 10:01] LABS: HCT 40.2 % (36.0-46.0); MCH 29.7 pg (27.0-33.0); MCHC 32.3 % (32.0-36.0); MPV 10.1 fL (8.0-11.0); Platelet Count 195 10^3/uL (130-400); RBC 4.37 10^6/uL (3.93-5.22); RDW 12.5 % (11.7-14.6); RDW-SD 41.7 fL
[2021-03-12 10:54] LABS: ALT 21 U/L (14-59); AST 14 U/L (15-37); Albumin 3.8 g/dL (3.4-5.0); Alkaline Phosphatase 111 U/L (46-116); Anion Gap 8.8 mmol/L (3-11); BUN 16 mg/dL (7-18); Bilirubin, Total 0.3 mg/dL (0.2-1.0); CO2 25.2 mmol/L (21.0-32.0); CREATININE 0.6 mg/dL (0.55-1.02); Calcium 8.5 mg/dL (8.5-10.1); Calculated LDL 143 mg/dL (<100); Chloride 107 mmol/L (98-107); Cholesterol 226 mg/dL (<200); Glucose 86 mg/dL (74-106); HDL Cholesterol 73 mg/dL (40-60); Potassium 4.2 mmol/L (3.5-5.1); Sodium 141 mmol/L (136-145); Total Protein 6.8 g/dL (6.4-8.2); Triglyceride 52 mg/dL (<150)
== END 2021-03-12 03:24 | disposition home or self-care (01) ==
LOC: LBO 03:24
DX: Z00.00 Encounter for general adult medical examination without abnormal findings (principal); R10.9 Unspecified abdominal pain; E78.5 Hyperlipidemia, unspecified
CPT/HCPCS: 36415; 80053; 80061; 85027

== ENCOUNTER 2021-03-17 01:36 | Outpatient (CLI) | payer MEDICAID, SELFPAY ==
--- NOTE | 2021-03-17 07:30 | DI.US_ITS ---
Exam(s) US RENAL PELVIC TRANSVAGINAL EXAM: US RENAL PELVIC TRANSVAGINAL CLINICAL HISTORY: Right flank and RLQ pain, Hx of breast cancer,R10.9,R10.31. TECHNIQUE: Ultrasound renal, pelvic, both abdmonal and tranvaginal was performed using standard prot ocol. COMPARISON: US PELVIS TRANSVAG from 10/22/2014 FINDINGS: RENAL: Renal size in cm: Right: 11.4 left: 11.5 Echogenicity: Normal. Hydronephrosis: No. Cyst or mass: No. Nephrolithiasis: No. Other findings: None. Bladder:Normal. Ureteral jets: Right: Not visualized on this examination. Left: Not visualized on this examination. Prevoid vol:61 cc Postvoid vol:21 cc Color: Symmetric and uniform flow to both kidneys. The right lower quadrant was evaluated sonographically. No sonographic evidence to suggest an acute appendicitis is present. PELVIC: UTERUS: Position: Anteverted. Size: 7.0 long by 3.5 AP by 3.8 transverse cm Endometrium: 0.5 cm. Normal for patient's menstrual status. Myometrium: Unremarkable. Cervix: Unremarkable. OVARIES: Right: 1.8 x 1.7 x 1.1 cm Cyst or mass: None. Left: 2.0 x 1.4 x 1.0 cm Cyst or mass: None. DOPPLER: Color: Symmetric and uniform flow to both ovaries. No hyperemia. Duplex: Normal ovarian arterial waveforms visualized. CUL-DE-SAC: Free fluid: None. IMPRESSION: 1. Normal sonographic appearance of the kidneys. 2. Normal-appearing uterus with endometrial stripe within normal limits. 3. Unremarkable bilateral ovaries. DATA REPOSITORY:
== END 2021-03-17 01:56 ==
DX: R10.31 Right lower quadrant pain (principal)
CPT/HCPCS: 76770; 76830; 76856

== ENCOUNTER → 2021-11-25 03:05 | Outpatient (CLI) | payer MEDICAID, SELFPAY ==
--- NOTE | 2021-11-25 09:00 | DI.RAD_ITS ---
Exam(s) XR LUMBAR SPINE COMPLETE EXAM: XR LUMBAR SPINE COMPLETE CLINICAL HISTORY: low back pain, M54.9. TECHNIQUE: 2D digital imaging was performed. COMPARISON: No exams were available for comparison FINDINGS: Five views: There is a scoliosis convex left. No fracture or listhesis. No pars defects. Mild disc space narro wing L5-S1 level noted as well as on the right side of the L3-4 disc space. There is also narrowing of the right-side of the L2-3 disc space. No osseous lesions. IMPRESSION: Asymmetric disc space narrowing with resultant scoliosis convex left. DATA REPOSITORY: RADIATION DOSE DELIVERED:
== END ==
PROVIDERS: Visit Provider Family Medicine
DX: M54.59 Other low back pain (principal); M51.37 Other intervertebral disc degeneration, lumbosacral region; M41.86 Other forms of scoliosis, lumbar region
CPT/HCPCS: 72110

== ENCOUNTER 2022-04-25 03:01 | Outpatient (CLI) | payer MEDICAID, SELFPAY ==
[2022-04-25 13:07] LABS: ALT 17 U/L (14-59); AST 21 U/L (15-37); Albumin 4.2 g/dL (3.4-5.0); Alkaline Phosphatase 103 U/L (46-116); Anion Gap 10.1 mmol/L (3-11); BUN 21 mg/dL (7-18); Bilirubin, Total 0.5 mg/dL (0.2-1.0); CO2 25.9 mmol/L (21.0-32.0); CREATININE 0.7 mg/dL (0.55-1.02); Calcium 9.5 mg/dL (8.5-10.1); Calculated LDL 142 mg/dL (<100); Chloride 105 mmol/L (98-107); Cholesterol 234 mg/dL (<200); Glucose 89 mg/dL (74-106); HDL Cholesterol 84 mg/dL (40-60); Potassium 4.1 mmol/L (3.5-5.1); Sodium 141 mmol/L (136-145); Total Protein 7.6 g/dL (6.4-8.2); Triglyceride 41 mg/dL (<150)
== END 2022-04-25 03:02 | disposition home or self-care (01) ==
PROVIDERS: PCP Nurse Practitioner Family; Visit Provider Nurse Practitioner Family
DX: R63.4 Abnormal weight loss (principal); E78.00 Pure hypercholesterolemia, unspecified
CPT/HCPCS: 36415; 80053; 80061

== ENCOUNTER 2022-06-01 20:24 | Emergency (ER) | payer MEDICAID, SELFPAY ==
[2022-06-01 20:26] VITALS: BP 135/82; PULSE 97; RESP 18; TEMP 36.7; O2SAT 100
--- NOTE | 2022-06-01 20:43 | W.ED.GENAD ---
Discharge Plan Disposition Patient Disposition: Home Discharge Details Clinical Impression: Laceration of left middle finger Primary Care Provider: Michelet Littlejohn ED Provider: Linh Gao Home Meds and New Rx's Prescriptions: No Action Myrbetriq 25 mg tablet extended release 24 hr 25 mg PO DAILY Qty: 28 0RF acetaminophen 500 mg tablet 500 mg PO Q6H PRN (Reason: pain) Qty: 60 2RF ibuprofen 600 mg tablet 600 mg PO TID PRN (Reason: pain) Qty: 60 0RF Discharge Instructions Instructions: Skin Adhesive Care (ED) Additional Instructions: Keep clean and dry. No soaking. The tissue adhesive will start to slough off on its own in approximately 4 to 6 days. Do not pick or scrub at the tissue adhesive. Return to the ER or be seen sooner for any signs of infection including increased red streaks, swelling drainage or any concerns. Follow up with primary care provider in 3-5 days. Return to ED sooner if any worsening or concerns. Increase oral fluids. Please take Tylenol or Ibuprofen with food every 4-6 hours as needed for pain and swelling. Referrals: Michelet Littlejohn, PERINATAL DIRECTOR [Primary Care Provider] - 1 week Medical Decision Making 51-year-old female presents to the ER with a chief complaint of avulsion type injury to her distal tip of the left middle finger which occurred around 4 PM this afternoon. Patient reports that she was cutting hair and actually snipped the end of her finger. Bleeding is controlled upon arrival. She is soaking it in saline. She does have full range of motion noted in sensation to the finger. She is up-to-date on her tetanus per patient report. Laceration in with sterile normal saline and applied Dermabond or tissue adhesive, patient tolerated well. Discussed home care return instructions and follow-up if needed. Patient verbalized understanding. HPI General Mode of arrival: ambulatory. Date/Time Provider Initiated Documentation: 06/01/22 20:37. Limitations to Documentation: no limitations. Information obtained by: patient, RN notes reviewed and old records reviewed. HPI Narrative: 51-year-old female presents to the ER with a chief complaint of avulsion type injury to her distal tip of the left middle finger which occurred around 4 PM this afternoon. Patient reports that she was cutting hair and actually snipped the end of her finger. Bleeding is controlled upon arrival. She is soaking it in saline. She does have full range of motion noted in sensation to the finger. She is up-to-date on her tetanus per patient report. She does have a past medical history of anxiety, low back pain GERD, obstructive sleep apnea, migraine. No other associated symptoms or complaints. Related Data Home Medications Medication Instructions Recorded Confirmed acetaminophen 500 mg tablet 500 mg PO Q6H PRN pain #60 tabs 10/06/20 05/30/22 ibuprofen 600 mg tablet 600 mg PO TID PRN pain #60 tabs 10/06/20 05/30/22 mirabegron 25 mg tablet,extended 25 mg PO DAILY #28 tabs 05/30/22 05/30/22 release 24 hr (Myrbetriq) Previous Rx's Medication Instructions Recorded acetaminophen 500 mg tablet 500 mg PO Q6H PRN pain #60 tabs 10/06/20 ibuprofen 600 mg tablet 600 mg PO TID PRN pain #60 tabs 10/06/20 mirabegron 25 mg tablet,extended 25 mg PO DAILY #28 tabs 05/30/22 release 24 hr (Myrbetriq) Allergies Allergy/AdvReac Type Severity Reaction Status Date / Time azithromycin Allergy Severe Unverified 05/30/22 13:21 chlorhexidine Allergy Intermediate hives, itch Verified 05/30/22 13:21 erythromycin lactobionate Allergy Intermediate Hives Verified 05/30/22 13:21 [From Erythrocin] General Stated Complaint: Laceration ELIEL: 4 Review of Systems Integumentary/Breasts Skin/Breast: Reports as per HPI and Reports wounds (Left distal avulsion laceration) PFSH All Active Problems (Updated 06/01/22 @ 21:17 by Linh Gao NP) Laceration of left middle finger (Acute) Urinary frequency (Acute) Hyperacusis of both ears (Acute) Tinnitus of both ears (Acute) Anxiety about health (Acute) Low back pain (Acute) GERD (gastroesophageal reflux disease) (Chronic) H/O abnormal cervical Papanicolaou smear (Acute) Peripheral neuropathy (Acute) Paresthesias (Acute) Exertional dyspnea (Acute) Intermittent palpitations (Acute) Nonsustained ventricular tachycardia (Acute) High risk HPV infection (Acute 10/13/15) Moderate dysplasia of cervix (DANTE II) (Acute 12/01/15) Achilles tendinitis, right leg (Acute) s/p open debridement of calcaneal bone spurs and calcific achilles tendinitis with joaquin resection and achilles repair DOS 10/06/2020. Joaquin's deformity of right heel (Acute) s/p open debridement of calcaneal bone spurs and calcific achilles tendinitis with joaquin resection and achilles repair DOS 10/06/2020. ÁNGEL (obstructive sleep apnea) (Chronic) Cubital tunnel syndrome on right (Acute) Bilateral carpal tunnel syndrome (Acute) Chemotherapy-induced peripheral neuropathy (Chronic) last dose +10 years ago Migraine (Chronic) LGSIL on Pap smear of cervix (Acute 11/16/15) Hx of breast cancer (Chronic 01/22/13) 01/2005. L breast T2N0M0. Infiltrating ductal carcinoma. s/p chemo and XRT. 07/2007. T1N0M0. Adjuvant chemo. 10/2008.Bilateral prophylactic mastectomy. Staged breast reconstruction Neg BRCA-1,2. ANGELA neg. DANTE III (cervical intraepithelial neoplasia III) (Acute 12/01/15) Medical History Abdominal pain, RLQ Arm paresthesia, left Chest pain Pt. states she had this fully worked up, it was not chest pain, but she was dehydrated. COVID-19 (~10/25/21) Duodenal ulcer Dysphagia Esotropia Gastritis Generalized pruritus Headache Hyperlipidemia Increased body mass index (BMI) Jaw pain Knee joint pain Menopause Pancreatitis Pruritus Right flank pain Shoulder joint pain Sleep apnea Surgical History breast reconstruction Breast, Mastectomy Bilateral H/O tubal ligation History of bunionectomy History of lumpectomy of left breast History of lumpectomy of right breast History of reversal of tubal ligation Hx of Achilles tendon repair Family History Father Hypothyroidism Hyperlipidemia CAD (coronary artery disease) Depression COPD (chronic obstructive pulmonary disease) Mother Hypothyroidism Goiter Memory impairment Sister , 54 Breast cancer Sister Depression Sister Depression Hypothyroidism Daughter No problems noted. Maternal Grandfather , 70's Cancer Bladder Cancer Paternal Grandfather , 40's Heart disease Maternal Grandmother , 90's Depression Paternal Grandmother , 80's Breast cancer Social History Smoking/Tobacco Use Status: Never Second Hand Exposure: Yes Smoking risk assessment performed?: Yes Alcohol Intake: current Alcohol Intake frequency: a few times a month Alcohol type: hard liquor Drug use: Never Substance use type: does not use Caregiver/Support person: No Household members: significant other Housing: house Number of Children: 1 Communication Needs: None Do you need help understanding health information?: Never 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 Pets and animals: Yes Pets and animals: dog(s) Sexually active: Yes Do you think of yourself as: straight/heterosexual Current gender identity: female What is your relationship status?: living with partner How often do you talk on the phone with friends or family?: three or more times per week How often do you get together with friends or relatives?: three or more times per week How often do you attend gnosticism or caodaism services?: 4 or more times per year Do you belong to any clubs or organized social groups?: yes Panel score (0-1 are the most socially isolated patients): 4 What type of physical activity do you participate in: none Frequency: other Details: occasionally, due to fatigue. Diana/Congregation: Congregation Special diana needs: No Seatbelt use: always Helmet use: Yes Helmet use: always Drive intox or ride w/intox dedicated regional driver: No Do you feel safe at home: Yes Do you feel safe in your relationship?: Yes Exam Extrem Left upper extremity: hand Details: laceration dorsal hand dorsal aspect distal Details: irregular and involving subcutaneous tissue Hand/finger images: 1. Avulsion laceration. No suturable laceration noted. Course Vital Signs Vital signs: Vital Signs Temperature 36.7 C 06/01/22 20:26 Pulse 97 H 06/01/22 20:26 Respiratory Rate 18 06/01/22 20:26 Blood Pressure 135/82 06/01/22 20:26 Pulse Oximetry 100 06/01/22 20:26 Temperature 36.7 C 06/01/22 20:26 Pulse 97 H 06/01/22 20:26 Respiratory Rate 18 06/01/22 20:26 Respiratory Effort Normal 06/01/22 20:30 Blood Pressure 135/82 06/01/22 20:26 Blood Pressure Position Supine 06/01/22 20:26 Pulse Oximetry 100 06/01/22 20:26 Oxygen Delivery Method Room Air 06/01/22 20:26 Oxygen Flow Rate 0 06/01/22 20:26 Pain Level 2 06/01/22 20:26 Procedures Laceration Laceration 1: Site: hand (Left middle finger) Side (If applicable): left Size (cm): 0.5 Description: other (Avulsion) Depth: simple, single layer Skin layer closed with: other (Skin adhesive)
--- NOTE | 2022-06-01 23:40 | NUR.NOTE ---
bandaid applied to L middle finger.Nursing Note:
== END 2022-06-01 21:44 | disposition home or self-care (01) ==
PROVIDERS: Emergency Provider Registered Nurse Emergency; PCP Nurse Practitioner Family
DX: S61.213A Laceration without foreign body of left middle finger without damage to nail, initial encounter (principal); W27.2XXA Contact with scissors, initial encounter
CPT/HCPCS: 12001

== ENCOUNTER 2022-07-29 01:18 | Outpatient (CLI) | payer MEDICAID, SELFPAY ==
[2022-07-29 12:11] LABS: HCT 42.9 % (36.0-46.0); HGB 14.1 g/dL (11.2-15.7); MCH 30.9 pg (27.0-33.0); MCHC 32.9 % (32.0-36.0); MCV 94 fL (80-95); MPV 11.5 fL (8.0-11.0); Platelet Count 162 10^3/uL (130-400); RBC 4.56 10^6/uL (3.93-5.22); RDW 13.1 % (11.7-14.6)
[2022-07-29 12:32] LABS: Iron 97 ug/dL (50-170); Total Iron Binding Capacity 285 ug/dL (250-450)
[2022-07-29 12:42] LABS: Ferritin 82 ng/mL (8-252); TSH (W/Ref FT4) 1.89 uIU/mL (0.36-3.74)
== END 2022-07-29 01:19 | disposition home or self-care (01) ==
LOC: LOS 01:18
PROVIDERS: PCP Nurse Practitioner Family; Visit Provider Nurse Practitioner Family
DX: R35.0 Frequency of micturition; R68.89 Other general symptoms and signs
CPT/HCPCS: 36415; 85027; 82728; 83540; 83550; 84443

== ENCOUNTER 2022-10-21 17:14 | Emergency (ER) | payer MEDICAID, SELFPAY ==
[2022-10-21] VITALS (20 sets, daily range): BP systolic 120–136; BP diastolic 66–89; PULSE 75–110; RESP 13–20; TEMP 37.2; O2SAT 95–99
--- NOTE | 2022-10-21 17:15 | RT.EKG_ITS ---
APPROVED REPORT Exam: Resting ECG Reason for Exam: chest pain Patient Location: E HR:113 bpm ECG Measurements Heart Rate 113 AXIS TX 152 P 81 QRSd 79 QRS 76 QT 309 T -39 QTc 424 Conclusion Sinus tachycardia...rate> 99
--- NOTE | 2022-10-21 17:30 | DI.CT_ITS ---
Exam(s) CT CHEST PE CTA EXAM: CT CHEST PE CTA CLINICAL HISTORY: Right-sided chest pain tachycardia. TECHNIQUE: Imaging Protocol: CT angiography of the chest was performed using pulmonary embolus rachid col. Multi planar reconstructions were performed. CONTRAST MATERIAL: Intravenous: Omnipaque 350 Contrast volume: 100 cc COMPARISON: CT CT chest PE CTA from 01/05/2018 FINDINGS: CHEST: PULMONARY ARTERIES: There are no intraluminal filling defects to suggest acute pulmonary emboli. LUNGS: Mild increased markings noted in the medial segment of the right middle lobe adjacent to the h eart border. No prominent infiltrates.. There are no pleural effusions. No significant focal findi ngs in the trachea and mainstem bronchi. There is no bronchiectasis. MEDIASTINUM: There is no hilar nor mediastinal adenopathy. Visualized thyroid unremarkable. CARDIAC: Heart size is normal. There is no pericardial effusion.Caliber of the thoracic aorta is wit hin normal limits. No evidence of dissection. There is no significant shift of the interventricular septum. PARTIALLY VISUALIZED UPPERMOST ABDOMEN: No obvious findings OSSEOUS: No significant osseous lesions.No fractures. Thoracic scoliosis convex right.. IMPRESSION: 1. No evidence of acute pulmonary emboli. No evidence of pulmonary infarction.No pleural effusions. 2. No acute pulmonary findings. 3. No intrathoracic adenopathy. RADIATION DOSE DELIVERED: 264.83mGy.cm Total DLP DATA REPOSITORY: All CT scans at this facility are submitted to the National Radiology Data Registry (NRDR) Dose Index Registry (DIR) with the [employer] (ACR). RADIATION OPTIMIZATION: All CT scans at this facility use at least one of these dose optimization te chniques: automated exposure control; mA and/or kV adjustment per patient size (includes targeted exa ms where dose is matched to clinical indication); or iterative reconstruction.
[2022-10-21] MEDS: Ketorolac 15 MG/ML VIAL IVP (18:12)
[2022-10-21] MEDS: Normal Saline 1,000 ML 1000 ML IV (18:12)
[2022-10-21 18:15] LABS: Abs Immature Grans 0.03 10^3/uL (0.0-0.06); Absolute Basophil Count 0.03 10^3/uL (0.0-0.2); Absolute Eosinophil Count 0.08 10^3/uL (0.0-0.7); Absolute Lymphocyte Count 1.16 10^3/uL (1.2-3.4); Absolute Monocyte Count 0.57 10^3/uL (0.1-0.8); Absolute Neutrophil Count 6.34 10^3/uL (1.2-6.7); Basophils % 0.4; HCT 39.6 % (36.0-46.0); HGB 13.2 g/dL (11.2-15.7); Immature Grans % 0.4; Lymphocytes % 14.1; MCH 31.3 pg (27.0-33.0); MCHC 33.3 % (32.0-36.0); MCV 94 fL (80-95); MPV 10.2 fL (8.0-11.0); Monocytes % 6.9; Neutrophils % 77.2; Platelet Count 159 10^3/uL (130-400); RBC 4.22 10^6/uL (3.93-5.22); RDW-SD 44.9 fL; WBC 8.21 10^3/uL (4.4-10.8)
[2022-10-21 18:32] LABS: ALT 23 U/L (14-59); AST 26 U/L (15-37); Albumin 4.3 g/dL (3.4-5.0); Alkaline Phosphatase 107 U/L (46-116); Anion Gap 9.4 mmol/L (3-11); BUN 21 mg/dL (7-18); Bilirubin, Total 0.5 mg/dL (0.2-1.0); CO2 28.6 mmol/L (21.0-32.0); CREATININE 0.7 mg/dL (0.55-1.02); Calcium 9.6 mg/dL (8.5-10.1); Chloride 102 mmol/L (98-107); Estimated GFR 104.65 (mL/min/1.73m2); Glucose 91 mg/dL (74-106); Magnesium 1.9 mg/dL (1.8-2.4); Potassium 3.8 mmol/L (3.5-5.1); Sodium 140 mmol/L (136-145); Total Protein 7.8 g/dL (6.4-8.2)
--- NOTE | 2022-10-21 19:18 | ED.GENADUL_ITS ---
Discharge Plan Disposition Patient Disposition: Home Condition: Stable Discharge Details Clinical Impression: Chest pain, pleuritic Primary Care Provider: Michelet Littlejohn ED Provider: Jennifer Johnson Home Meds and New Rx's Prescriptions: Continued Myrbetriq 50 mg tablet extended release 24 hr 50 mg PO DAILY Qty: 90 3RF acetaminophen 500 mg tablet 500 mg PO Q6H PRN (Reason: pain) Qty: 60 2RF ibuprofen 600 mg tablet 600 mg PO TID PRN (Reason: pain) Qty: 60 0RF Discharge Instructions Instructions: Chest Pain (ED) Additional Instructions: Continue [id number] pain medication as directed Can try lidocaine patch to see if that is helpful Heat or ice Referrals: Michelet Littlejohn, ACQUISITION ASSOCIATE [Primary Care Provider] - Medical Decision Making Patient presents with chest pain she has had for couple days now worsening it is pleuritic in nature blood pressure is stable but she is tachycardic she is oxygenating in the high 90s on room air recent travel but no unilateral leg swelling no history of DVT or blood clots. Her EKG shows no acute ST segment changes we will obtain routine lab think is reasonable to get a chest CT to rule out PE. We will give her 1 L of normal saline and Toradol 15 mg IV push for her symptoms. She has improvement in her symptoms after the Toradol and normal saline. Her labs are reviewed and are unremarkable her CT scan also with no evidence of PE. Vital signs are stable symptoms improved she is stable for discharge to home. Medical Records Medical records reviewed: Yes I reviewed the patient's medical records. Imaging Data Radiologic Study: Imaging: CT Scan (Chest PE protocol) Radiologist's impression: IMPRESSION: 1. ? No pulmonary arterial embolism. 2. ? COPD. 3. ? No acute infiltrates. 4. ? No acute pleural changes. Lab Data Lab results reviewed: Yes I reviewed the patient's lab results. Lab results narrative: Laboratory Tests Range/Units 10/21/22 10/21/22 18:10 18:10 WBC (4.4-10.8) 10^3/uL 8.21 RBC (3.93-5.22) 10^6/uL 4.22 Hgb (11.2-15.7) g/dL 13.2 Hct (36.0-46.0) % 39.6 MCV (80-95) fL 94 MCH (27.0-33.0) pg 31.3 MCHC (32.0-36.0) % 33.3 RDW (11.7-14.6) % 13.0 Plt Count (130-400) 10^3/uL 159 MPV (8.0-11.0) fL 10.2 Immature Gran % 0.4 Neutrophils % 77.2 Lymphocytes % 14.1 Monocytes % 6.9 Eosinophils % 1.0 Basophils % 0.4 Nucleated RBC % (0.0-0.3) % 0.0 Absolute Neutrophils (1.2-6.7) 10^3/uL 6.34 Absolute Lymphocytes (1.2-3.4) 10^3/uL 1.16 L Absolute Monocytes (0.1-0.8) 10^3/uL 0.57 Absolute Eosinophils (0.0-0.7) 10^3/uL 0.08 Absolute Basophils (0.0-0.2) 10^3/uL 0.03 Sodium (136-145) mmol/L 140 Potassium (3.5-5.1) mmol/L 3.8 Chloride (98-107) mmol/L 102 Carbon Dioxide (21.0-32.0) mmol/L 28.6 Anion Gap (3-11) mmol/L 9.4 BUN (7-18) mg/dL 21 H Creatinine (0.55-1.02) mg/dL 0.7 Est GFR (CKD-EPI 2020) (mL/min/1.73m2) 104.65 Glucose (74-106) mg/dL 91 Calcium (8.5-10.1) mg/dL 9.6 Magnesium (1.8-2.4) mg/dL 1.9 Total Bilirubin (0.2-1.0) mg/dL 0.5 AST (15-37) U/L 26 ALT (14-59) U/L 23 Alkaline Phosphatase (46-116) U/L 107 Total Protein (6.4-8.2) g/dL 7.8 Albumin (3.4-5.0) g/dL 4.3 HPI General Mode of arrival: ambulatory . Date/Time Provider Initiated Documentation: 10/21/22 17:19 . Limitations to Documentation: no limitations . Information obtained by: patient . HPI Narrative: This is a 52-year-old female patient with remote history of breast cancer status post bilateral mastectomy/chemotherapy who has been experiencing some right upper chest pain that radiates into her neck. She states now the pain is worsened with trying to take a deep breath feels that she has some shortness of breath. She states she has a cough but is unable to raise any sputum she denies any fever abdominal pain nausea or vomiting denies any similar history did travel to [place] in August. Denies any lower extremity swelling or calf pain. No history of blood clots Related Data Home Medications Medication Instructions Recorded Confirmed acetaminophen 500 mg tablet 500 mg PO Q6H PRN pain #60 tabs 10/06/20 10/21/22 ibuprofen 600 mg tablet 600 mg PO TID PRN pain #60 tabs 10/06/20 10/21/22 mirabegron 50 mg tablet,extended 50 mg PO DAILY #90 tabs 06/29/22 10/21/22 release 24 hr (Myrbetriq) Previous Rx's Medication Instructions Recorded acetaminophen 500 mg tablet 500 mg PO Q6H PRN pain #60 tabs 10/06/20 ibuprofen 600 mg tablet 600 mg PO TID PRN pain #60 tabs 10/06/20 mirabegron 50 mg tablet,extended 50 mg PO DAILY #90 tabs 06/29/22 release 24 hr (Myrbetriq) Allergies Allergy/AdvReac Type Severity Reaction Status Date / Time azithromycin Allergy Severe Unverified 08/25/22 13:59 chlorhexidine Allergy Intermediate hives, itch Verified 08/25/22 13:59 erythromycin lactobionate Allergy Intermediate Hives Verified 08/25/22 13:59 [From Erythrocin] General Stated Complaint: Chest Pain ELIEL: 3 Review of Systems All systems reviewed & are unremarkable except as noted in HPI and below PFSH All Active Problems (Updated 10/21/22 @ 20:56 by Jennifer Johnson NP) Chest pain, pleuritic (Acute) Migraine (Chronic) DANTE III (cervical intraepithelial neoplasia III) (Acute 12/01/15) Hx of breast cancer (Chronic 01/22/13) 01/2005. L breast T2N0M0. Infiltrating ductal carcinoma. s/p chemo and XRT. 07/2007. T1N0M0. Adjuvant chemo. 10/2008.Bilateral prophylactic mastectomy. Staged breast reconstruction Neg BRCA-1,2. ANGELA neg. High risk HPV infection (Acute 10/13/15) LGSIL on Pap smear of cervix (Acute 11/16/15) Moderate dysplasia of cervix (DANTE II) (Acute 12/01/15) Chemotherapy-induced peripheral neuropathy (Chronic) last dose +10 years ago Bilateral carpal tunnel syndrome (Acute) Cubital tunnel syndrome on right (Acute) ÁNGEL (obstructive sleep apnea) (Chronic) Achilles tendinitis, right leg (Acute) s/p open debridement of calcaneal bone spurs and calcific achilles tendinitis with joaquin resection and achilles repair DOS 10/06/2020. Joaquin's deformity of right heel (Acute) s/p open debridement of calcaneal bone spurs and calcific achilles tendinitis with joaquin resection and achilles repair DOS 10/06/2020. Nonsustained ventricular tachycardia (Acute) Intermittent palpitations (Acute) Exertional dyspnea (Acute) Paresthesias (Acute) Peripheral neuropathy (Acute) H/O abnormal cervical Papanicolaou smear (Acute) GERD (gastroesophageal reflux disease) (Chronic) Low back pain (Acute) Anxiety about health (Acute) Tinnitus of both ears (Acute) Hyperacusis of both ears (Acute) Urinary frequency (Acute) Cold intolerance (Acute) Medical History Abdominal pain, RLQ Arm paresthesia, left Chest pain Pt. states she had this fully worked up, it was not chest pain, but she was dehydrated. COVID-19 (~10/25/21) Duodenal ulcer Dysphagia Esotropia Gastritis Generalized pruritus Headache Hyperlipidemia Increased body mass index (BMI) Jaw pain Knee joint pain Menopause Pancreatitis Pruritus Right flank pain Shoulder joint pain Sleep apnea Surgical History breast reconstruction Breast, Mastectomy Bilateral H/O tubal ligation History of bunionectomy History of lumpectomy of left breast History of lumpectomy of right breast History of reversal of tubal ligation Hx of Achilles tendon repair Family History Father Hypothyroidism Hyperlipidemia CAD (coronary artery disease) Depression COPD (chronic obstructive pulmonary disease) Mother Hypothyroidism Goiter Memory impairment Sister , 54 Breast cancer Sister Depression Sister Depression Hypothyroidism Daughter No problems noted. Maternal Grandfather , 70's Cancer Bladder Cancer Paternal Grandfather , 40's Heart disease Maternal Grandmother , 90's Depression Paternal Grandmother , 80's Breast cancer Social History Smoking/Tobacco Use Status: Never Second Hand Exposure: Yes Smoking risk assessment performed?: Yes Alcohol Intake: current Alcohol Intake frequency: a few times a month Alcohol type: hard liquor Drug use: Never Substance use type: does not use Caregiver/Support person: No Household members: significant other Housing: house Number of Children: 1 Communication Needs: None Do you need help understanding health information?: Never 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 Pets and animals: Yes Pets and animals: dog(s) Sexually active: Yes Do you think of yourself as: straight/heterosexual Current gender identity: female What is your relationship status?: living with partner How often do you talk on the phone with friends or family?: three or more times per week How often do you get together with friends or relatives?: three or more times per week How often do you attend mandaen or spiritism services?: 4 or more times per year Do you belong to any clubs or organized social groups?: yes Panel score (0-1 are the most socially isolated patients): 4 What type of physical activity do you participate in: none Frequency: other Details: occasionally, due to fatigue. 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 operator: No Do you feel safe at home: Yes Do you feel safe in your relationship?: Yes Exam Const General: cooperative, comfortable and no acute distress Nutritional Appearance: thin Orientation: alert, awake and oriented x3 HENMT Head: normal to inspection, normocephalic and atraumatic Mouth: oral mucosae normal Chest Chest: other (Bilateral mastectomy well-healed) Resp Effort & Inspection: normal respiratory effort Auscultation: clear to auscultation bilaterally and diminished lung sounds bilaterally Cardio Rate: tachycardic Rhythm: regular rhythm Heart Sounds: no murmurs GI Inspection: normal to inspection Skin General skin exam: no rashes or lesions noted Neuro General: patient alert, patient awake and patient oriented x3 Extrem General: normal to inspection and full ROM Course Vital Signs Vital signs: Vital Signs Temperature 37.2 C 10/21/22 17:16 Pulse 110 H 10/21/22 17:16 Respiratory Rate 20 10/21/22 17:16 Blood Pressure 136/89 10/21/22 17:16 Pulse Oximetry 99 10/21/22 17:16 Temperature 37.2 C 10/21/22 17:16 Temperature Source Oral 10/21/22 17:16 Pulse 110 H 10/21/22 17:16 Pulse 83 10/21/22 18:50 Respiratory Rate 14 10/21/22 18:50 Respiratory Effort Normal 10/21/22 17:33 Respiratory Depth Normal 10/21/22 17:33 Respiratory Pattern Normal 10/21/22 17:33 Blood Pressure 136/89 10/21/22 17:16 Blood Pressure Position Sitting 10/21/22 17:16 Pulse Oximetry 99 10/21/22 17:16 Oxygen Delivery Method Room Air 10/21/22 17:16 Oxygen Flow Rate 0 10/21/22 17:16 Lab/Test Results Lab/Test Results: Laboratory Tests Range/Units 10/21/22 10/21/22 18:10 18:10 WBC (4.4-10.8) 10^3/uL 8.21 RBC (3.93-5.22) 10^6/uL 4.22 Hgb (11.2-15.7) g/dL 13.2 Hct (36.0-46.0) % 39.6 MCV (80-95) fL 94 MCH (27.0-33.0) pg 31.3 MCHC (32.0-36.0) % 33.3 RDW (11.7-14.6) % 13.0 Plt Count (130-400) 10^3/uL 159 MPV (8.0-11.0) fL 10.2 Immature Gran % 0.4 Neutrophils % 77.2 Lymphocytes % 14.1 Monocytes % 6.9 Eosinophils % 1.0 Basophils % 0.4 Nucleated RBC % (0.0-0.3) % 0.0 Absolute Neutrophils (1.2-6.7) 10^3/uL 6.34 Absolute Lymphocytes (1.2-3.4) 10^3/uL 1.16 L Absolute Monocytes (0.1-0.8) 10^3/uL 0.57 Absolute Eosinophils (0.0-0.7) 10^3/uL 0.08 Absolute Basophils (0.0-0.2) 10^3/uL 0.03 Sodium (136-145) mmol/L 140 Potassium (3.5-5.1) mmol/L 3.8 Chloride (98-107) mmol/L 102 Carbon Dioxide (21.0-32.0) mmol/L 28.6 Anion Gap (3-11) mmol/L 9.4 BUN (7-18) mg/dL 21 H Creatinine (0.55-1.02) mg/dL 0.7 Est GFR (CKD-EPI 2020) (mL/min/1.73m2) 104.65 Glucose (74-106) mg/dL 91 Calcium (8.5-10.1) mg/dL 9.6 Magnesium (1.8-2.4) mg/dL 1.9 Total Bilirubin (0.2-1.0) mg/dL 0.5 AST (15-37) U/L 26 ALT (14-59) U/L 23 Alkaline Phosphatase (46-116) U/L 107 Total Protein (6.4-8.2) g/dL 7.8 Albumin (3.4-5.0) g/dL 4.3
[2022-10-21] MEDS: Omnipaque 350 MG/ML 100 ML BTL IJ (19:55)
[2022-10-21] MEDS: Normal Saline - Diluent 50 ML VIAL IJ (19:55)
--- NOTE | 2022-10-21 20:26 | DI.VRAD_ITS ---
PROCEDURE INFORMATION: Exam: CTA Chest With Contrast Exam date and time: 10/21/2022 7:40 PM Age: 52 years old Clinical indication: Pain; Right-sided; Additional info: Right-sided chest pain tachycardia TECHNIQUE: Imaging protocol: Computed tomographic angiography of the chest with contrast. Exam focused on the arteries. 3D rendering (Not supervised by radiologist): MIP and/or 3D reconstructed images were created by the technologist. Radiation optimization: All CT scans at this facility use at least one of these dose optimization techniques: automated exposure control; mA and/or kV adjustment per patient size (includes targeted exams where dose is matched to clinical indication); or iterative reconstruction. Contrast material: OMNI 350; Contrast volume: 100 ml; Contrast route: INTRAVENOUS (IV); COMPARISON: CT chest PE CTA 01/05/2018 1:35 PM FINDINGS: Pulmonary arteries: Pulmonary arterial opacification is of good technical quality. No embolism. Aorta: Thoracic aorta is normal in course and caliber. Lungs: Moderate to severe bronchiectasis consistent with COPD. No acute lung infiltrates. No edema. Pleural spaces: No pleural effusion. No pneumothorax. Heart: Normal heart size. No pericardial effusion. No coronary artery atherosclerotic calcium is visible. Lymph nodes: Unremarkable. No enlarged lymph nodes. Bones/joints: Thoracic spine degeneration and moderate dextroscoliosis. Soft tissues: Surgical clips of the anterior chest wall bilaterally. Recommend clinical correlation. Possibly for a previous mastopexy type procedure.. IMPRESSION: 1. No pulmonary arterial embolism. 2. COPD. 3. No acute infiltrates. 4. No acute pleural changes. Dictated and Authenticated by: Leonel Wheeler MD. Ordering:EDUARDO Rodriguez MD
[2022-10-21 21:10] LABS: Troponin I < 50 ng/L (<or=60)
== END 2022-10-21 21:19 | disposition home or self-care (01) ==
PROVIDERS: Emergency Provider Nurse Practitioner Acute Care; PCP Nurse Practitioner Family
DX: R07.81 Pleurodynia (principal)
CPT/HCPCS: 71275; 80053; 93005; 96361; 96374; 99285; 83735; 84484; 85025; 93010; 99284; J1885; J3490

== ENCOUNTER 2022-12-26 07:12 | Day surgery (SDC) | payer MEDICAID, SELFPAY ==
[2022-12-26] VITALS (8 sets, daily range): BP systolic 108–132; BP diastolic 66–80; PULSE 56–78; RESP 14–17; TEMP 36.1–36.7; O2SAT 99–100; BMI 20.1
[2022-12-26] MEDS: Sulfameth/Trimeth DS TAB 1 TAB PO (07:41)
[2022-12-26] MEDS: Lactated Ringers 1,000 ML 80 ML IV (08:00)
--- NOTE | 2022-12-26 08:00 | W.PM.HP.N ---
Date of service: 12/26/22 Time of Service: 08:01 Assessment and Plan Assessment and plan (1) Urge incontinence: Status: Acute (2) Overactive bladder: Status: Acute Assessment and plan: Urgency incontinence is caused by an overactive bladder. She has failed medical management and behavioral modification. We will move forward with an injection of Botox into the detrusor muscle. History of Present Illness History of Present Illness Chief Complaint: Urgency incontinence Narrative: This is a 52-year-old woman who has a history of urinary frequency urgency and urgency incontinence. Her symptoms have not been well managed with behavioral modification or with Myrbetriq. On evaluation, she was found to be emptying her bladder quite well with a low postvoid residual urine volume. Her bowel symptoms are stable. She has no evidence of urinary tract infection. After discussion of multiple treatment options, she is agreeable to an injection of Botox into the detrusor muscle. Review of Systems Narrative: No fevers or chills Tinnitis. No vision change or dysphasia No diabetes or thyroid dysfunction Sleep apnea. No hemoptysis Occasional palpitation. No chest pain GERD. No hepatitis, ulcers, jaundice, diarrhea or constipation Chemotherapy induced neuropathy. No seizures or strokes No bleeding disorders or anemia Tendonitis. No gout PFSH All Active Problems (Updated 12/26/22 @ 08:05 by Frank Davis MD) Overactive bladder (Acute) Migraine (Chronic) DANTE III (cervical intraepithelial neoplasia III) (Acute 12/01/15) Hx of breast cancer (Chronic 01/22/13) 01/2005. L breast T2N0M0. Infiltrating ductal carcinoma. s/p chemo and XRT. 07/2007. T1N0M0. Adjuvant chemo. 10/2008.Bilateral prophylactic mastectomy. Staged breast reconstruction Neg BRCA-1,2. ANGELA neg. High risk HPV infection (Acute 10/13/15) LGSIL on Pap smear of cervix (Acute 11/16/15) Moderate dysplasia of cervix (DANTE II) (Acute 12/01/15) Chemotherapy-induced peripheral neuropathy (Chronic) last dose +10 years ago Bilateral carpal tunnel syndrome (Acute) Cubital tunnel syndrome on right (Acute) ÁNGEL (obstructive sleep apnea) (Chronic) Achilles tendinitis, right leg (Acute) s/p open debridement of calcaneal bone spurs and calcific achilles tendinitis with joaquin resection and achilles repair DOS 10/06/2020. Joaquin's deformity of right heel (Acute) s/p open debridement of calcaneal bone spurs and calcific achilles tendinitis with joaquin resection and achilles repair DOS 10/06/2020. Nonsustained ventricular tachycardia (Acute) Intermittent palpitations (Acute) Exertional dyspnea (Acute) Paresthesias (Acute) Peripheral neuropathy (Acute) H/O abnormal cervical Papanicolaou smear (Acute) GERD (gastroesophageal reflux disease) (Chronic) Low back pain (Acute) Anxiety about health (Acute) Tinnitus of both ears (Acute) Hyperacusis of both ears (Acute) Urinary frequency (Acute) Cold intolerance (Acute) Urge incontinence (Acute) Medical History (Updated 12/26/22 @ 08:05 by Frank Davis MD) Abdominal pain, RLQ Arm paresthesia, left Chest pain Pt. states she had this fully worked up, it was not chest pain, but she was dehydrated. COVID-19 (~10/25/21) Duodenal ulcer Dysphagia Esotropia Gastritis Generalized pruritus Headache History of postoperative nausea Hyperlipidemia Increased body mass index (BMI) Jaw pain Knee joint pain Menopause Pancreatitis Pruritus Right flank pain Shoulder joint pain Sleep apnea Surgical History breast reconstruction Breast, Mastectomy Bilateral H/O tubal ligation History of bunionectomy History of lumpectomy of left breast History of lumpectomy of right breast History of reversal of tubal ligation Hx of Achilles tendon repair Family History Father Hypothyroidism Hyperlipidemia CAD (coronary artery disease) Depression COPD (chronic obstructive pulmonary disease) Mother Hypothyroidism Goiter Memory impairment Sister , 54 Breast cancer Sister Depression Sister Depression Hypothyroidism Daughter No problems noted. Maternal Grandfather , 70's Cancer Bladder Cancer Paternal Grandfather , 40's Heart disease Maternal Grandmother , 90's Depression Paternal Grandmother , 80's Breast cancer Social History Smoking/Tobacco Use Status: Never Second Hand Exposure: Yes Smoking risk assessment performed?: Yes Alcohol Intake: current Alcohol Intake frequency: a few times a month Alcohol type: hard liquor Drug use: Never Substance use type: does not use Caregiver/Support person: No Household members: significant other Housing: house Number of Children: 1 Communication Needs: None Do you need help understanding health information?: Never 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 Pets and animals: Yes Pets and animals: dog(s) Sexually active: Yes Do you think of yourself as: straight/heterosexual Current gender identity: female What is your relationship status?: living with partner How often do you talk on the phone with friends or family?: three or more times per week How often do you get together with friends or relatives?: three or more times per week How often do you attend religion or anabaptist services?: 4 or more times per year Do you belong to any clubs or organized social groups?: yes Panel score (0-1 are the most socially isolated patients): 4 What type of physical activity do you participate in: none Frequency: other Details: occasionally, due to fatigue. 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 driver or operator: No Do you feel safe at home: Yes Do you feel safe in your relationship?: Yes Meds Allergies and Home Medications Allergies Allergy/AdvReac Type Severity Reaction Status Date / Time azithromycin Allergy Severe Hives Unverified 12/26/22 07:32 chlorhexidine Allergy Intermediate hives, itch Verified 12/26/22 07:32 erythromycin lactobionate Allergy Intermediate Hives Verified 12/26/22 07:32 [From Erythrocin] Home Medications Medication Instructions Recorded Confirmed Type mirabegron 50 mg tablet,extended 50 mg PO DAILY #90 tabs 06/29/22 12/26/22 Rx release 24 hr (Myrbetriq) Exam Const General: cooperative Neck Neck: supple Resp Effort & Inspection: normal respiratory effort Auscultation: clear to auscultation bilaterally Cardio Rate: regular rate Rhythm: regular rhythm GI Palpation: soft and no masses Neuro General: patient alert, patient awake and patient oriented x3 Results Last Vital Signs Temp 36.5 C 12/26/22 07:33 Pulse 68 12/26/22 07:33 Resp 16 12/26/22 07:33 BP 117/78 12/26/22 07:33 Pulse Ox 100 12/26/22 07:33 Time Spent Time spent with Patient: <40 minutes Time was spent: other
--- NOTE | 2022-12-26 08:24 | ANES.PREOP_ITS ---
General Info Date of Service Date Performed: 12/26/22 Height: 5 ft 9 in Weight: 61.8 kg Body Mass Index (BMI): 20.1 Surgical Procedure: Operation Date: 12/26/22 08:40 Proposed Procedure Side Surgeon p Cystoscopy/Transurethral Injection of Botox Frank Davis MD Meds Allergies and Home Medications Allergies Allergy/AdvReac Type Severity Reaction Status Date / Time azithromycin Allergy Severe Hives Unverified 12/26/22 07:32 chlorhexidine Allergy Intermediate hives, itch Verified 12/26/22 07:32 erythromycin lactobionate Allergy Intermediate Hives Verified 12/26/22 07:32 [From Erythrocin] Home Medication Medication Instructions Recorded mirabegron 50 mg tablet,extended 50 mg PO DAILY #90 tabs 06/29/22 release 24 hr (Myrbetriq) Current Visit Medications: Current Medications Generic Name Dose Route Start Last Admin Trade Name Freq PRN Reason Stop Dose Admin OnabotulinumtoxinA 100 units/ 0 units 12/26/22 06:00 Sodium Chloride 20 ml IJ 12/26/22 16:00 TODAY JAREN Ringer's Solution 1,000 mls @ 80 mls/hr 12/26/22 06:00 12/26/22 08:00 IV 01/22/23 23:59 80 mls/hr INFUSION JAREN Administration IV Miscellaneous Supplies 1 each 12/26/22 06:00 Iv Access IV 01/22/23 23:59 DIRECTED JAREN Sodium Chloride 0 ml 12/26/22 06:00 Normal Saline Flush 10 Ml Syr IV 01/22/23 23:59 PRN PRN Sodium Chloride 0 ml 12/26/22 06:00 Normal Saline 10 Ml Vial IJ 01/22/23 23:59 DIRECTED PRN Sterile Water 0 ml 12/26/22 06:00 Water,Injection,Sterile 10 Ml Vial IJ 01/22/23 23:59 DIRECTED PRN Trimethoprim/Sulfamethoxazole 1 tab 12/26/22 06:00 12/26/22 07:41 Sulfameth/Trimeth Ds Tab PO 12/26/22 16:00 1 tab PREOP JAREN Administration PFSH Active Problems Active Problems: Problem Status Onset Code Overactive bladder N32.81 Migraine G43.909 DANTE III (cervical intraepithelial neoplasia III) 12/01/15 D06.9 Hx of breast cancer 01/22/13 Z85.3 High risk HPV infection 10/13/15 B97.7 LGSIL on Pap smear of cervix 11/16/15 R87.612 Moderate dysplasia of cervix (DANTE II) 12/01/15 N87.1 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, T45.1X5A Bilateral carpal tunnel syndrome G56.03 Cubital tunnel syndrome on right G56.21 ÁNGEL (obstructive sleep apnea) G47.33 Achilles tendinitis, right leg M76.61 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 states she had this fully worked up, it was not chest pain, but she was dehydrated. COVID-19 (~10/25/21) Duodenal ulcer Dysphagia Esotropia Gastritis Generalized pruritus Headache History of postoperative nausea Hyperlipidemia Increased body mass index (BMI) Jaw pain Knee joint pain Menopause Pancreatitis Pruritus Right flank pain Shoulder joint pain Sleep apnea Medical History Comments:: NICHO Surgical History Surgical History breast reconstruction Breast, Mastectomy Bilateral H/O tubal ligation History of bunionectomy History of lumpectomy of left breast History of lumpectomy of right breast History of reversal of tubal ligation Hx of Achilles tendon repair Tobacco Smoking/Tobacco Use Status: Never Passive smoking exposure: Yes Second hand exposure: Yes Alcohol Alcohol Intake: current Alcohol intake frequency: a few times a month Alcohol ty pe: hard liquor Substance Use Substance use: Never Substance use type: does not use Vital Signs and Lab Results Vital Signs Most Recent Vital Signs in EMR: Most Recent Vital Signs Temp Pulse Resp BP Pulse Ox 36.5 C 68 16 117/78 100 12/26/22 07:33 10/02/23 07:33 12/26/22 07:33 12/26/22 07:33 12/26/22 07:33 Lab Results Blood Type / Crossmatch: No Data to Display Complete Blood Count: No Data to Display Complete Metabolic Panel: No Data to Display Liver Function Panel: No Data to Display Coagulation Panel: No Data to Display Cardiac Panel: No Data to Display Arterial Blood Gas: No Data to Display Venous Blood Gas: No Data to Display Pancreas Panel: No Data to Display Thyroid Panel: No Data to Display Infectious Disease: No Data to Display Blood Cultures: No Data to Display Toxicology Panel: No Data to Display Panel: No Data to Display Imaging and Studies Imaging and Studies Study information below may be from another EMR and interpreted by another provider. Please see original notes in EMR for more complete details. EKG Summary: DATE/TIME OF SERVICE: 06/03/20 1746 Conclusion Sinus rhythm...normal P axis, V-rate 60- 99 Stress Test Summary: Date of Exam: 08/13/20Sex: F Admission Date: 08/13/20 MPI Conclusion Ejection fraction was 52% with stress. There were no wall motion abnormalities. There is no evidence of ischemia on the imaging portion exam. This likely represents a normal SPECT stress test and a false positive abnormal ECG result. Echocardiogram Summary: Date of Exam: 07/10/20Sex: F Admission Date: 07/10/20 Indications: Nonsustained ventricular tachycardia, Near syncope Conclusion Normal left ventricular wall thickness and chamber size. Estimated ejection fraction is 60%. There are no segmental wall motion abnormalities Normal right ventricular size and systolic function Both atria are normal in size There are no structural valvular abnormalities Trace to mild mitral and tricuspid regurgitation. Estimated right ventricular systolic pressure is normal at 21 mmHg Borderline dilated ascending aorta Carotid Artery Summary:: Date of Exam: 06/12/20Sex: F Admission Date: 06/12/20 EXAM: CAROTID CLINICAL HISTORY: dizziness,R42. IMPRESSION: Normal. No significant plaque. No evidence for hemodynamically significant carotid stenosis. Anesthesia Assessment and Plan Anesthesia History Personal History: Delayed Emergence Family History: No Family History of Anesthesia Complications Exercise Tolerance Exercise Tolerance: Metabolic Equivalents>4 Pertinent Negatives Pertinent Negatives: No Symptoms of GERD Cardiac & Pulmonary Exam Cardiac Exam: Normal S1/S2 Heart Sounds Pulmonary Exam: Clear Bilateral Breath Sounds Implantable Cardiac Device Does patient have a Pacemaker or an ICD?: No Airway Exam Known Difficult Airway: No Mallampati Class: 2 Mouth Opening: Normal (> 3cm) Thyromental Distance: Greater than 3 cm Neck Range of Motion: Full ROM Neck Circumference: Normal Teeth Condition: Normal Dentition ASA Classification ASA Score: ASA 2 Emergency Case?: No NPO Status NPO Status: NPO Clears >2 hours, Solids >8 hours Status Status: Not Relevant due to Medical History Anesthesia Plan Resuscitation Status: Full Code Anesthesia Technique: General Anesthesia Airway Planned: Natural Airway Monitors Used: Standard Monitors
[2022-12-26] MEDS: Lidocaine 2% Jelly 6 ML SYR (08:58)
[2022-12-26] MEDS: BOTULINUM TOXIN TYPE A 100 UNITS, Normal Saline 20 ML IJ (09:01)
--- NOTE | 2022-12-26 09:07 | W.PM.DSUDISC ---
Date of service: 12/26/22 Time of Service: 09:07 Discharge Plan Disposition Patient Disposition: Home Condition: Stable Discharge Details Reason For Visit: Cystoscopy with Botox injection Attending Provider: Frank Davis Primary Care Provider: Michelet Littlejohn Home Meds and New Rx's Prescriptions: No Action Myrbetriq 50 mg tablet extended release 24 hr 50 mg PO DAILY Qty: 90 3RF Discharge Instructions Additional Instructions: followup appt 6 months Ask patient to call office with progress report in @ 1 week Activity:: Activity as Tolerated Shower/Bathe:: 24 hours Diet:: As Tolerated Discharge Orders Discharge Orders: Discharge Order (Routine); Ordered 12/26/22 Ordered By: Frank Davis DS: Diagnosis Discharge Diagnosis (1) Urge incontinence: Status: Acute (2) Overactive bladder: Status: Acute
--- NOTE | 2022-12-26 09:09 | W.PM.OP ---
Date of service: 12/26/22 Time of Service: 09:09 Operative Note Operative Note DATE OF PROCEDURE: 12/26/22 PRE-OP DIAGNOSIS: Urgency incontinence due to overactive bladder POST-OP DIAGNOSIS: same PROCEDURE: cystoscopy with transurethral injection of Botox into detrusor muscle SURGEON: Frank Davis ANESTHESIA TYPE: Local By Surgeon and General LMA/ETT Refer to Anesthesia Record ESTIMATED BLOOD LOSS: 0 PATHOLOGY: none sent COMPLICATIONS: None Patient was transported to: PACU Patient's condition: stable Implants: 100 units Botox into detrusor muscle Indications: This is a 52-year-old woman who has a history of urinary frequency, urgency and urgency incontinence all related to an overactive bladder. She has tried and failed behavioral modification and medical management with Myrbetriq. As her symptoms remain bothersome, she presents for an injection of Botox into the detrusor muscle Findings: normal appearing bladder Procedure Description: The patient was given an oral antibiotic and brought to the operating room on 12/26/2022. After successful induction of general anesthesia, she was placed in the dorsal lithotomy position. Her genitalia was prepped and draped. 2% Xylocaine jelly was instilled into the urethra to act as a local anesthetic. A 20 Portuguese urethrotome sheath was passed through the urethra into the bladder. The bladder was inspected using a 30 degree lens. Both ureteral orifices appeared normal with no blood on either side. The bladder was smooth-walled with no papillary or nodular lesions. We then used a transurethral injection system to inject a total of 100 units of Botox into the detrusor muscle. We injected in a total of 20 different locations along the posterior bladder wall. We used the grid of 5 vertical rows and 4 horizontal rolls. We avoided the trigone and bladder neck regions. The bladder was then emptied and the cystoscope was removed. The patient tolerated the procedure well.
[2022-12-26] MEDS: Phenazopyridine 200 MG TAB PO (10:12)
--- NOTE | 2022-12-26 11:34 | W.ANESPOSTOP ---
Postoperative Evaluation Date, Time and Location Date Performed: 12/26/22 Time Performed: 10:30 Patient Location: Day Surgery Unit Vital Signs Most Recent Imported Vital Signs: Most Recent Vital Signs Temp Pulse Resp BP Pulse Ox 36.2 C L 71 17 115/68 99 12/26/22 10:20 12/26/22 10:20 12/26/22 10:20 12/26/22 10:20 12/26/22 10:20 Pain Score Most Recent Pain Score: Most Recent Pain Score Pain Level 0 12/26/22 10:20 Assessment Mental Status: Awake (Alert & Oriented to Patient Baseline) Airway and Respiratory Function: Patent airway with normal (patient baseline) respiratory exam Cardiovascular Function: Hemodynamically Stable Hydration Status: Adequately Hydrated Nausea & Vomiting: No Nausea or Vomiting Pain: Pt. Denies Any Pain Peripheral Nerve Block: Patient did not receive a nerve block
== END 2022-12-26 11:04 | disposition home or self-care (01) ==
PROVIDERS: PCP Nurse Practitioner Family; Visit Provider Urology
PROC: (CPT 52287; principal; 2022-12-26 08:30)
DX: N39.41 Urge incontinence (principal); N32.81 Overactive bladder
CPT/HCPCS: 52287; J0585; J1100; J1885; J2250; J2405; J2704

== ENCOUNTER → 2023-06-29 02:35 | Outpatient (CLI) | payer MEDICAID, SELFPAY ==
--- NOTE | 2023-06-29 08:30 | DI.RAD_ITS ---
Exam(s) XR HIP PELVIS ADULT BL EXAM: XR HIP PELVIS ADULT BL CLINICAL HISTORY: hip pain,bilat.m25.552,m25.551. TECHNIQUE: 2D digital imaging was performed. Three views. COMPARISON: No exams were available for comparison FINDINGS: BONES: No acute fracture is present. No bony destructive lesion is seen. Enthesophytes at the iliac wings. JOINTS: No dislocation present. Mild bilateral hip joint space narrowing. Prominent acetabular spurr ing bilaterally. SI joints and pubic symphysis show ihms-cx-watedawn degenerative changes. SOFT TISSUE: Surgical clips in both upper thighs. Large quantity fecal material noted. IMPRESSION: [id number]-namjrkbi degenerative changes of both hips. DATA REPOSITORY: RADIATION DOSE DELIVERED:
== END ==
PROVIDERS: PCP Nurse Practitioner Family; Visit Provider Nurse Practitioner Family
DX: M25.551 Pain in right hip (principal); M25.552 Pain in left hip
CPT/HCPCS: 73521

== ENCOUNTER 2023-07-10 07:27 | Day surgery (SDC) | payer MEDICAID, SELFPAY ==
[2023-07-10] VITALS (8 sets, daily range): BP systolic 76–106; BP diastolic 49–82; PULSE 61–83; RESP 13–19; TEMP 36.1–36.6; O2SAT 97–100; BMI 21.3
[2023-07-10] MEDS: Sulfameth/Trimeth DS TAB 1 TAB PO (07:51)
[2023-07-10] MEDS: Lactated Ringers 1,000 ML 80 ML IV (08:03)
--- NOTE | 2023-07-10 09:05 | HPE_ITS ---
Date of service: 07/10/23 Time of Service: 09:05 Assessment and Plan Assessment and plan (1) Overactive bladder: Status: Acute Assessment and plan: We will reinject her bladder with 100 Units of Botox into his bladder and discontinue the Myrbetriq. History of Present Illness History of Present Illness Chief Complaint: Overactive bladder Narrative: This is a 52-year-old woman who has a history of an overactive bladder. She failed behavioral modification and oral medications (Myrbetriq), so she underwent an injection of Botox 100 units into the detrusor muscle about 6 months ago. She comes in for a repeat injection. She tells me that the results of the Botox injection were life-changing. She did have slowing of her urinary stream but she had no incontinence, dysuria or gross hematuria. Her symptoms began worsening a bit about a month ago. She reports no adverse effects from the anesthesia with her last procedure At this point she is back on Myrbetriq 50 mg daily Review of Systems Narrative: No fevers or chills No vision change or dysphasia No diabetes or thyroid dysfunction Sleep apnea. No shortness of breath, cough or hemoptysis Occasional palpitations. No chest pain GERD. No nausea, vomiting, hepatitis, ulcers, jaundice Hx migraines. Peripheral neuropathy related to chemotherapy. No seizures, strokes No bleeding disorders or anemia No gout PFSH All Active Problems Bilateral hip pain (Acute) Osteoarthritis (Chronic) Overactive bladder (Acute) Migraine (Chronic) DANTE III (cervical intraepithelial neoplasia III) (Acute 12/01/15) Hx of breast cancer (Chronic 01/22/13) 01/2005. L breast T2N0M0. Infiltrating ductal carcinoma. s/p chemo and XRT. 07/2007. T1N0M0. Adjuvant chemo. 10/2008.Bilateral prophylactic mastectomy. Staged breast reconstruction Neg BRCA-1,2. ANGELA neg. High risk HPV infection (Acute 10/13/15) LGSIL on Pap smear of cervix (Acute 11/16/15) Moderate dysplasia of cervix (DANTE II) (Acute 12/01/15) Chemotherapy-induced peripheral neuropathy (Chronic) last dose +10 years ago Bilateral carpal tunnel syndrome (Acute) Cubital tunnel syndrome on right (Acute) ÁNGEL (obstructive sleep apnea) (Chronic) Achilles tendinitis, right leg (Acute) s/p open debridement of calcaneal bone spurs and calcific achilles tendinitis with joaquin resection and achilles repair DOS 10/06/2020. Joaquin's deformity of right heel (Acute) s/p open debridement of calcaneal bone spurs and calcific achilles tendinitis with joaquin resection and achilles repair DOS 10/06/2020. Nonsustained ventricular tachycardia (Acute) Intermittent palpitations (Acute) Exertional dyspnea (Acute) Paresthesias (Acute) Peripheral neuropathy (Acute) H/O abnormal cervical Papanicolaou smear (Acute) GERD (gastroesophageal reflux disease) (Chronic) Low back pain (Acute) Anxiety about health (Acute) Tinnitus of both ears (Acute) Hyperacusis of both ears (Acute) Urinary frequency (Acute) Cold intolerance (Acute) Urge incontinence (Acute) Medical History History of postoperative nausea COVID-19 (~10/25/21) Increased body mass index (BMI) Abdominal pain, RLQ Right flank pain Esotropia Menopause Duodenal ulcer Shoulder joint pain Pruritus Knee joint pain Arm paresthesia, left Hyperlipidemia Chest pain Pt. states she had this fully worked up, it was not chest pain, but she was dehydrated. Generalized pruritus Dysphagia Jaw pain Headache Gastritis Sleep apnea Pancreatitis Surgical History History of lumpectomy of right breast History of reversal of tubal ligation History of lumpectomy of left breast History of bunionectomy H/O tubal ligation Hx of Achilles tendon repair breast reconstruction Breast, Mastectomy Bilateral Family History Father Hypothyroidism Hyperlipidemia CAD (coronary artery disease) Depression COPD (chronic obstructive pulmonary disease) Mother Hypothyroidism Goiter Memory impairment Sister , 54 Breast cancer Sister Depression Sister Depression Hypothyroidism Daughter No problems noted. 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 [employer] Pets and animals: Yes Pets and animals: dog(s) Sexually active: Yes Do you think of yourself as: straight/heterosexual Current gender identity: female What is your relationship status?: living with partner How often do you talk on the phone with friends or family?: three or more times per week How often do you get together with friends or relatives?: three or more times per week How often do you attend restorationist or anabaptism services?: 4 or more times per year Do you belong to any clubs or organized social groups?: yes Panel score (0-1 are the most socially isolated patients): 4 What type of physical activity do you participate in: none Frequency: other Details: occasionally, due to fatigue. 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 Do you feel safe at home: Yes Do you feel safe in your relationship?: Yes Meds Allergies and Home Medications Allergies Allergy/AdvReac Type Severity Reaction Status Date / Time azithromycin Allergy Severe Hives Verified 07/10/23 07:40 chlorhexidine Allergy Intermediate hives, itch Verified 07/10/23 07:40 erythromycin lactobionate Allergy Intermediate Hives Verified 07/10/23 07:40 [From Erythrocin] Home Medications Medication Instructions Recorded Confirmed Type mirabegron 50 mg tablet,extended 50 mg PO DAILY #90 tabs 06/29/22 07/10/23 Rx release 24 hr (Myrbetriq) cyclobenzaprine 5 mg tablet 5 mg PO TID PRN back pain #30 tabs 06/26/23 07/10/23 Rx Exam Const General: cooperative Neck Neck: supple Resp Effort & Inspection: normal respiratory effort Auscultation: clear to auscultation bilaterally Cardio Rate: regular rate Rhythm: regular rhythm GI Palpation: soft and no masses Neuro General: patient alert, patient awake and patient oriented x3 Results Last Vital Signs Temp 36.5 C 07/10/23 07:41 Pulse 83 07/10/23 07:41 Resp 16 07/10/23 07:41 BP 106/82 07/10/23 07:41 Pulse Ox 99 07/10/23 07:41 Time Spent Time spent with Patient: <40 minutes Time was spent: other
--- NOTE | 2023-07-10 09:29 | W.ANESPRE ---
General Info Date of Service Date Performed: 07/10/23 Height: 5 ft 9 in Weight: 65.5 kg Body Mass Index (BMI): 21.3 Surgical Procedure: Operation Date: 07/10/23 09:25 Proposed Procedure Side Surgeon p Cystoscopy/Injection of Botox Frank Davis MD Meds Allergies and Home Medications Allergies Allergy/AdvReac Type Severity Reaction Status Date / Time azithromycin Allergy Severe Hives Verified 07/10/23 07:40 chlorhexidine Allergy Intermediate hives, itch Verified 07/10/23 07:40 erythromycin lactobionate Allergy Intermediate Hives Verified 07/10/23 07:40 [From Erythrocin] Home Medication Medication Instructions Recorded mirabegron 50 mg tablet,extended 50 mg PO DAILY #90 tabs 06/29/22 release 24 hr (Myrbetriq) cyclobenzaprine 5 mg tablet 5 mg PO TID PRN back pain #30 tabs 06/26/23 Current Visit Medications: Current Medications Generic Name Dose Route Start Last Admin Trade Name Freq PRN Reason Stop Dose Admin Ringer's Solution 1,000 mls @ 80 mls/hr 07/10/23 06:00 07/10/23 08:03 IV 07/10/23 23:59 80 mls/hr INFUSION JAREN Administration IV Miscellaneous Supplies 1 each 07/10/23 06:00 Iv Access IV 07/10/23 23:59 DIRECTED JAREN OnabotulinumtoxinA 100 units 07/10/23 06:00 Botulinum Toxin Type A 100 Units Vial IJ 07/10/23 23:59 DIRECTED JAREN Sodium Chloride 0 ml 07/10/23 06:00 Normal Saline Flush 10 Ml Syr IV 07/10/23 23:59 PRN PRN Sodium Chloride 0 ml 07/10/23 06:00 Normal Saline 10 Ml Vial IJ 07/10/23 23:59 DIRECTED PRN Sterile Water 0 ml 07/10/23 06:00 Water,Injection,Sterile 10 Ml Vial IJ 07/10/23 23:59 DIRECTED PRN Trimethoprim/Sulfamethoxazole 1 tab 07/10/23 06:00 07/10/23 07:51 Sulfameth/Trimeth Ds Tab PO 07/10/23 23:59 1 tab PREOP JAREN Administration PFSH Active Problems Active Problems: Problem Status Onset Code Bilateral hip pain M25.551, M25.552 Osteoarthritis M19.90 Overactive bladder N32.81 Migraine G43.909 DANTE III (cervical intraepithelial neoplasia III) 12/01/15 D06.9 Hx of breast cancer 01/22/13 Z85.3 High risk HPV infection 10/13/15 B97.7 LGSIL on Pap smear of cervix 11/16/15 R87.612 Moderate dysplasia of cervix (DANTE II) 12/01/15 N87.1 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, T45.1X5A Bilateral carpal tunnel syndrome G56.03 Cubital tunnel syndrome on right G56.21 ÁNGEL (obstructive sleep apnea) G47.33 Achilles tendinitis, right leg M76.61 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 Nonsustained ventricular tachycardia I47.2 Intermittent palpitations R00.2 Exertional dyspnea R06.00 Paresthesias R20.2 Peripheral neuropathy G62.9 H/O abnormal cervical Papanicolaou smear Z87.42 GERD (gastroesophageal reflux disease) K21.9 Low back pain M54.50 Anxiety about health F41.8 Tinnitus of both ears H93.13 Hyperacusis of both ears H93.233 Urinary frequency R35.0 Cold intolerance R68.89 Urge incontinence N39.41 Medical History Medical History History of postoperative nausea COVID-19 (~10/25/21) Increased body mass index (BMI) Abdominal pain, RLQ Right flank pain Esotropia Menopause Duodenal ulcer Shoulder joint pain Pruritus Knee joint pain Arm paresthesia, left Hyperlipidemia Chest pain Pt. states she had this fully worked up, it was not chest pain, but she was dehydrated. Generalized pruritus Dysphagia Jaw pain Headache Gastritis Sleep apnea Pancreatitis Medical History Comments:: NICHO Surgical History Surgical History History of lumpectomy of right breast History of reversal of tubal ligation History of lumpectomy of left breast History of bunionectomy H/O tubal ligation Hx of Achilles tendon repair breast reconstruction Breast, Mastectomy Bilateral Tobacco Smoking/Tobacco Use Status: Never Passive smoking exposure: Yes Second hand exposure: Yes Alcohol Alcohol Intake: never Substance Use Substance use: Never Substance use type: does not use Vital Signs and Lab Results Vital Signs Most Recent Vital Signs in EMR: Most Recent Vital Signs Temp Pulse Resp BP Pulse Ox 36.5 C 83 16 106/82 99 07/10/23 07:41 07/10/23 07:41 07/10/23 07:41 07/10/23 07:41 07/10/23 07:41 Lab Results Blood Type / Crossmatch: No Data to Display Complete Blood Count: No Data to Display Complete Metabolic Panel: No Data to Display Liver Function Panel: No Data to Display Coagulation Panel: No Data to Display Cardiac Panel: No Data to Display Arterial Blood Gas: No Data to Display Venous Blood Gas: No Data to Display Pancreas Panel: No Data to Display Thyroid Panel: No Data to Display Infectious Disease: No Data to Display Blood Cultures: No Data to Display Toxicology Panel: No Data to Display Panel: No Data to Display Imaging and Studies Imaging and Studies Study information below may be from another EMR and interpreted by another provider. Please see original notes in EMR for more complete details. EKG Summary: DATE/TIME OF SERVICE: 06/03/20 1746 Conclusion Sinus rhythm...normal P axis, V-rate 60- 99 Stress Test Summary: Date of Exam: 08/13/20Sex: F Admission Date: 08/13/20 MPI Conclusion Ejection fraction was 52% with stress. There were no wall motion abnormalities. There is no evidence of ischemia on the imaging portion exam. This likely represents a normal SPECT stress test and a false positive abnormal ECG result. Echocardiogram Summary: Date of Exam: 07/10/20Sex: F Admission Date: 07/10/20 Indications: Nonsustained ventricular tachycardia, Near syncope Conclusion Normal left ventricular wall thickness and chamber size. Estimated ejection fraction is 60%. There are no segmental wall motion abnormalities Normal right ventricular size and systolic function Both atria are normal in size There are no structural valvular abnormalities Trace to mild mitral and tricuspid regurgitation. Estimated right ventricular systolic pressure is normal at 21 mmHg Borderline dilated ascending aorta Carotid Artery Summary:: Date of Exam: 06/12/20Sex: F Admission Date: 06/12/20 EXAM: CAROTID CLINICAL HISTORY: dizziness,R42. IMPRESSION: Normal. No significant plaque. No evidence for hemodynamically significant carotid stenosis. Anesthesia Assessment and Plan Anesthesia History Personal History: No History of Anesthesia Complications Family History: No Family History of Anesthesia Complications Exercise Tolerance Exercise Tolerance: Metabolic Equivalents>4 Cardiac & Pulmonary Exam Cardiac Exam: Normal S1/S2 Heart Sounds Pulmonary Exam: Clear Bilateral Breath Sounds Implantable Cardiac Device Does patient have a Pacemaker or an ICD?: No Airway Exam Known Difficult Airway: No Mallampati Class: 2 Mouth Opening: Normal (> 3cm) Thyromental Distance: Greater than 3 cm Neck Range of Motion: Full ROM Neck Circumference: Normal Teeth Condition: Normal Dentition ASA Classification ASA Score: ASA 2 Emergency Case?: No NPO Status NPO Status: NPO Clears >2 hours, Solids >8 hours Status Status: Not Relevant due to Medical History Anesthesia Plan Resuscitation Status: Full Code Anesthesia Technique: General Anesthesia Airway Planned: LMA Monitors Used: Standard Monitors
[2023-07-10] MEDS: Lidocaine 2% Jelly 11 ML SYR (10:07)
--- NOTE | 2023-07-10 10:15 | W.PM.DSUDISC ---
Date of service: 07/10/23 Time of Service: 10:15 Discharge Plan Disposition Patient Disposition: Home Condition: Stable Discharge Details Reason For Visit: cystoscopy with Botox injection Attending Provider: Frank Davis Primary Care Provider: Yumiko Tyler Home Meds and New Rx's Prescriptions: Continued cyclobenzaprine 5 mg tablet 5 mg PO TID PRN (Reason: back pain) Qty: 30 0RF Rx Instructions: Take 1 tablet by mouth three times a day as needed for back pain Discontinued Myrbetriq 50 mg tablet extended release 24 hr 50 mg PO DAILY Qty: 90 3RF Discharge Instructions Additional Instructions: followup appt in @ 6 months please call office in about 1 week and give us a progress report about your symptoms Activity:: Activity as Tolerated Shower/Bathe:: 24 hours Diet:: As Tolerated Discharge Orders Discharge Orders: Discharge Order (Routine); Ordered 07/10/23 Ordered By: Frank Davis DS: Diagnosis Discharge Diagnosis (1) Overactive bladder: Status: Acute
--- NOTE | 2023-07-10 10:19 | ROE_ITS ---
Date of service: 07/10/23 Time of Service: 10:19 Operative Note Operative Note DATE OF PROCEDURE: 07/10/23 PRE-OP DIAGNOSIS: Overactive Bladder POST-OP DIAGNOSIS: same PROCEDURE: cystoscopy with transurethral injection of Botox into bladder SURGEON: Frank Davis ANESTHESIA TYPE: Local By Surgeon and General LMA/ETT Refer to Anesthesia Record ESTIMATED BLOOD LOSS: 5 PATHOLOGY: none sent COMPLICATIONS: None Patient was transported to: PACU Patient's condition: stable Implants: 100 Units Botox Indications: This is a 52-year-old woman who has a history of an overactive bladder. She has failed behavioral modification and beta 3 agonist medications. 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 She presents for repeat injection Findings: Normal bladder anatomy Procedure Description: The patient was given oral antibiotics and brought to the operating room on 07/10/2023. After successful induction of general anesthesia, she was placed in the dorsal lithotomy position. Her genitalia was prepped and draped sterilely. 2% Xylocaine jelly was instilled into the urethra to act as a local anesthetic. A 20 Portuguese urethrotome sheath was passed through the urethra into the bladder. The bladder was inspected with a 30 degree lens. Both ureteral orifices appeared normal. No blood was seen coming from either side. The bladder was smooth-walled with no papillary or nodular lesions. We then utilized a transurethral injection system and injected a total of 100 units of Botox into the detrusor muscle. We mixed the Botox and 20 mL of dilute and injected 1 mL in 20 different locations on the posterior bladder wall. We used a grid pattern with 5 vertical rows and 4 horizontal rows. We avoided the trigone and bladder neck during our injection. The bladder was emptied. The scope was removed. The patient tolerated the procedure well with no complications.
[2023-07-10] MEDS: Phenazopyridine 200 MG TAB PO (11:45)
--- NOTE | 2023-07-10 11:47 | W.ANESPOSTOP ---
Postoperative Evaluation Date, Time and Location Date Performed: 07/10/23 Time Performed: 11:47 Patient Location: Day Surgery Unit Vital Signs Most Recent Imported Vital Signs: Most Recent Vital Signs Temp Pulse Resp BP Pulse Ox 36.6 C 66 16 106/72 97 07/10/23 11:39 07/10/23 11:39 07/10/23 11:39 07/10/23 11:39 07/10/23 11:39 Pain Score Most Recent Pain Score: Most Recent Pain Score Pain Level 0 07/10/23 11:39 Assessment Mental Status: Awake (Alert & Oriented to Patient Baseline) Airway and Respiratory Function: Patent airway with normal (patient baseline) respiratory exam Cardiovascular Function: Hemodynamically Stable Hydration Status: Adequately Hydrated Nausea & Vomiting: No Nausea or Vomiting Pain: Pt. Denies Any Pain Peripheral Nerve Block: Patient did not receive a nerve block
== END 2023-07-10 11:56 | disposition home or self-care (01) ==
PROVIDERS: PCP Nurse Practitioner Family; Visit Provider Urology
PROC: (CPT 52287; principal; 2023-07-10 09:15)
DX: N32.81 Overactive bladder (principal); N39.41 Urge incontinence; K21.9 Gastro-esophageal reflux disease without esophagitis; G47.33 Obstructive sleep apnea (adult) (pediatric)
CPT/HCPCS: 52287; J0585; J1100; J1885; J2001; J2250; J2405; J2704

== ENCOUNTER 2023-11-09 16:06 | Emergency (ER) | payer MEDICAID, SELFPAY ==
[2023-11-09] VITALS (18 sets, daily range): BP systolic 126–157; BP diastolic 80–97; PULSE 74–98; RESP 12–20; TEMP 36.2–36.6; O2SAT 96–99
--- NOTE | 2023-11-09 16:15 | DI.RAD_ITS ---
Exam(s) XR CHEST 2V PA LATERAL EXAM: XR CHEST 2V PA LATERAL CLINICAL HISTORY: shortness of breath, covid. TECHNIQUE: 2D digital imaging was performed. COMPARISON: CR,XR XR CHEST 2V PA LATERAL from 02/17/2019 FINDINGS: 2 views: Heart size is normal. The mediastinum is not widened. Surgical clips are again noted bilaterally. There are no infiltrates nor pleural effusions. No pulmonary nodules. No pulmonary edema. Thoracic scoliosis convex right is again noted. IMPRESSION: No acute pulmonary findings.No significant change compared to 02/17/2019. DATA REPOSITORY: RADIATION DOSE DELIVERED:
--- NOTE | 2023-11-09 16:15 | RT.EKG_ITS ---
APPROVED REPORT Exam: Resting ECG Reason for Exam: chest pain Patient Location: E HR:89 bpm ECG Measurements Heart Rate 89 AXIS OK 116 P 43 QRSd 83 QRS 79 QT 363 T 52 QTc 443 Conclusion Sinus rhythm 89 normal axis no stemi
--- OUTSIDE RECORDS SUMMARY | 2023-11-09 16:22 | XMS_ITS | Encounter Summary ---
Author Organization [facility] [place] [address] Care Team Providers Care Wrap Checker Name Role Phone Marlon Levine MD Primary Care Provider [phone] Encounter Details Date Type Department Care Team (Late st Contact Info) Description 07/29/2016 Telephone Obstetrics [place] [address] Valentina Moore MD [facility] [address] OBSTETRICS [place] [address] Social History Tobacco Use Types Packs/Day Years Used Date Smoking Tobacco: Never Smokeless Tobacco: Never Alcohol Use Standard Drinks/Week Comments No 0 (1 standard drink = 0.6 oz pur e alcohol) Sex and Gender Information Value Date Recorded Sex Assigned at Not on file Gender Identity Not on file Sexual Orientation Not on file documented as of this encounter Miscellaneous Notes * Telephone Encounter - Valentina Moore MD - 07/29/2016 1:47 PM EDT Subjective: Antonia Jennings is a 45 y.o. female who is referred by Ingrid Delacruz NP for cervical dysplasia in the setting of breast cancer. Her history is as follows: Had LEEP in [place] in 12/2015 - confirmed DANTE 2 with negative margins. No ECC done at that time. Has not had any follow-up yet. She saw Ingrid Delacruz NP in the oncology division recently, who recommended that she have a speech pathologist assistant here at [facility] to make sure she is treated and followed carefully for gynecologic issues. She reports that she is not having menses, due to chemotherapy, and has been told it is unlikely due to her regimen received. Her family history of breast cancer is strong, with two sisters having been diagnosed with breast cancer, one of whom at age 38. She has been evaluated in genetics and BRCA testing is negative. She has no known family history of ovarian cancer. Gynecologic History: LMP - prior to breast cancer treatment Menses - none Paps - as in HPI Past Medical History: Diagnosis Date ??? Bilateral breast cancer dx at age 34, 37 ??? Esotropia 02/26/2013 Past Surgical History: Procedure Laterality Date ??? PRO ENDOSCOPIC US EXAM, ESOPH 05/30/2011 UPPER EUS- ENDOSCOPIC ULTRASOUND performed by CHUCHO ZAPATA at [facility] ENDOSCOPY ??? PRO UPPER GI ENDOSCOPY, DIAGNOSTIC 07/01/2013 EGD, UPPER GI ENDOSCOPY performed by Tali Kamara MD at [facility] ENDOSCOPY Family History Problem Relation Age of Onset ??? Thyroid Disease Mother ??? Cataracts Mother ??? Heart Disease Father ??? Thyroid Disease Father ??? Breast Cancer Sister 38 ??? Strabismus Maternal Grandmother ??? Retinal Detachment Neg Hx ??? Macular Degeneration Neg Hx ??? Hypertension Neg Hx ??? Glaucoma Neg Hx ??? Diabetes Neg Hx Social History Social History ??? Marital status: Legal Separation Spouse name: N/A ??? Number of children: N/A ??? Years of education: N/A Occupational History ??? Not on file. Social History Main Topics ??? Smoking status: Never Smoker ??? Smokeless tobacco: Never Used ??? Alcohol use No ??? Drug use: No ??? Sexual activity: Not on file Comment: Deferred Other Topics Concern ??? 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 Objective: There were no vitals taken for this visit. Gen- Appears well, healthy weight Skin - no lesions or rashes noted Neck - no thyromegaly or thyroid nodules, no cervical lymphadenopathy Breasts - no masses or lesions, no axillary lymphadenopathy Abdomen - soft , NT, no masses appreciated Pelvic - External genitalia: normal general appearance, no lesions or skin changes noted Urinary system: urethral meatus normal Vaginal: normal epithelium without prolapse or lesions Cervix: normal post-LEEP appearance and thin prep PAP obtained with broom and brush and placed in fixative Adnexa: normal bimanual exam, no masses noted Uterus: normal single, nontender Assessment: Ms. Jennings is a 45 yo female treated for high grade cervical dysplasia in 12/2015. Here for follow-up. Plan/Recommendations: Pap cytology sent today. If NILM, will repeat pap and HPV testing in 6 months, when we will schedule her for a routine annual forest fire management officer visit. Will get in touch regarding results as soon as they are available. Valentina Moore MD documented in this encounter Plan of Treatment Not on file documented as of this encounter Visit Diagnoses Not on filedocumented in this encounter Care Teams Wrap Checker Relationship Specialty Start Date End Date Marlon Levine MD [address] [place] [address] PCP - General 06/20/12 documented as of this encounter
--- OUTSIDE RECORDS SUMMARY | 2023-11-09 16:22 | XMS_ITS | Encounter Summary ---
Author Organization [facility] [place] [address] Care Team Providers Care Computer Systems Manager Name Role Phone Marlon Levine MD Primary Care Provider [phone] Reason for Visit * Reason Onset Date Comments Labs Only 06/09/2017 Report today lab s Encounter Details Date Type Department Care Team (Late st Contact Info) Description 06/09/2017 Telephone Hematology/Oncology at [address] [phone] Mary Alice Naidu RN Labs Only (Report today labs) Social History Tobacco Use Types Packs/Day Years [...] encounter Miscellaneous Notes * Telephone Encounter - Mary Alice Naidu RN - 06/09/2017 3:57 PM EDT Patient had provider visit today and had labs and a urinalysis. Delilah Delacruz APRN asked that patient be notified of normal labs and ua. This has been completed. Patient has no questions. documented in this encounter Plan of Treatment Not on file documented as of this encounter Visit Diagnoses Not on filedocumented in this encounter Care Teams Computer Systems Manager Relationship Specialty Start Date End Date Marlon Levine MD [address] [place] [address] PCP - General 06/20/12 documented as of this encounter
--- OUTSIDE RECORDS SUMMARY | 2023-11-09 16:22 | XMS_ITS | Encounter Summary ---
Author Organization [facility] Address [facility] [place] [address] Care Team Providers Care Professional Driver Name Role Phone Marlon Levine MD Primary Care Provider [phone] Reason for Visit * Reason Comments Colposcopy Encounter Details Date Type Department Care Team (Latest Contact Info) Description 08/23/2016 9:30 AM EDT Procedure visit Obstetrics [place] [id number] Valentina Moore MD [facility] DR OBSTETRICS [place] [address] Cervical dysplasia Social History Tobacco Use Types Packs/Day Years Used Date Smoking Tobacco: Never Smokeless Tobacco: Never Alcohol Use Standard Drinks/Week Comments No 0 (1 standard drink = 0.6 oz pur e alcohol) Sex and Gender Information Value Date Recorded Sex Assigned at Not on file Gender Identity Not on file Sexual Orientation Not on file documented as of this encounter Last Filed Vital Signs Vital Sign Reading Time Taken Comments Blood Pressure 136/78 08/23/2016 9:34 AM EDT Pulse - - Temperature - - Respiratory Rate - - Oxygen Saturation - - Inhaled Oxygen Concentration - - Weight 69.4 kg (153 lb) 08/23/2016 9:34 AM EDT Height - - Body Mass Index 22.58 05/27/2016 8:45 AM EST documented in this encounter Progress Notes * Valentina Moore MD - 08/23/2016 9:30 AM EDT Antonia Jennings is a 45 y.o. P1 here for colposcopy. Her last pap smear showed ASCUS, HPV + (non 16/18) Prior past hx: LEEP in 12/2015 - path showed DANTE 2 with negative margins. She is amenorrheic and likely post-menopausal from breast cancer treatments. Current Outpatient Prescriptions on File Prior to Visit Medication Sig Dispense Refill ??? gabapentin (NEURONTIN) 300 mg Capsule Take 300 mg by mouth nightly. ??? CYANOCOBALAMIN, VITAMIN B-12, (VITAMIN B-12 ORAL) Take 1 tablet by mouth daily. ??? ibuprofen (ADVIL;MOTRIN) 800 mg tablet Take 1 tablet by mouth as needed. Reported on 05/27/2016 ??? acetaminophen (TYLENOL) 325 mg tablet Take 650 mg by mouth every 6 hours as needed. Reported on05/27/2016 ??? UNABLE TO FIND Take 100 mg by mouth daily. Vitamin B 2 - 2 tabs in the AM No current facility-administered medications on file prior to visit. Allergies Allergen Reactions ??? Adhesive Tape Rash ??? Azithromycin Hives ??? Chlorhexidine Gluconate Rash Objective: Immediately prior to the start of the procedure, I confirmed the patient's identity, intended procedure, and insured that the proper equipment was present for the procedure. On exam, external genitalia normal, no lesions seen. Vagina and cervix without visible lesion on speculum exam. Colposcopic evaluation using 5% acetic acid showed normal appearing post-LEEP cervix, no acetowhitelesions. Vaginal fornices were examined with Lugol's solution and no suspicious lesions noted. An ECC was performed. Bleeding was minimal. Impression: Normal appearing post-LEEP cervix. Plan: Will contact patient with results. If ECC does not show HSIL, will repeat pap in 6 months. Valentina Moore MD documented in this encounter Plan of Treatment Not on file documented as of this encounter Procedures Procedure Name Priority Date/Time Associated Diagnosis Comments SPECIMEN TO PATHOLOGY (NON-OR) Routine 08/23/2016 9:54 AM EDT Cervical dysplasia SURGICAL PATHOLOGY REPORT Routine 08/23/2016 9:54 AM EDT documented in this encounter Results * Surgical Pathology Report (08/23/2016 9:54 AM EDT) Final Diagnosis [id number] ?Location: 5L The signing pathologist has (i) examined the relevant preparation(s) for the specimen(s) and (ii) rendered or confirmed the diagnosis(es). . ?Surgical Pathology DIAGNOSIS Endocervical curettings: ?1. Fragments of atypical metaplastic squamous mucosa intermixed ? with fragments of endocervical mucosa, mucus, and blood clot. ?2. No definite evidence of dysplasia or HPV effect. CR-0 Electronically signed by: ??Nancy CROSS, Suad Warner Verified: ??08/25/2016 ?Pathologist CLINICAL INFORMATION Specimen Submitted: A - Endocervical Clinical History: History of DANTE 2 treated with LEEP 2015 Clinical Diagnosis: Normal ECC? SPECIMEN PROCESSING A - Labeled/Fixative : Patient demographics, formalin. Quantity/Size: Multiple, 0.5 x 0.4 x 0.2 cm aggregate. Tissue Description: Blood-tinged mucus. Sections/Process ing: (T1) ??nurys 08/25/2016 11:04 AM EDT [facility] ENDOCERVICAL STRUCTURE / Unknown 08/23/2016 9:54 AM EDT 08/23/2016 9:54 AM EDT Valentina Moore MD PATHOLOGY/CYTOLOGY O RDERABLES [facility] [place] [address] * Specimen to Pathology (NON-OR) (08/23/2016 9:54 AM EDT) AP Specimen 08/23/2016 9:54 AM EDT 08/23/2016 9:54 AM EDT Narrative [facility] - 08/23/2016 9:54 AM EDT Specimen requisition ordered. ??Separate Pathology report to follow Valentina Moore MD PATHOLOGY/CYTOLOGY O BARTOLOME [facility] [place] [address] documented in this encounter Visit Diagnoses Diagnosis Cervical dysplasia Dysplasia of cervix, unspecified documented in this encounter Care Teams Professional Driver Relationship Specialty Start Date End Date Marlon Levine MD [address] [place] [address] PCP - General 06/20/12 documented as of this encounter
--- OUTSIDE RECORDS SUMMARY | 2023-11-09 16:22 | XMS_ITS | Encounter Summary ---
Author Organization [facility] Address [facility] [place] [address] Care Team Providers Care Lieutenant Firefighter Name Role Phone Marlon Levine MD Primary Care Provider [phone] Reason for Visit * Reason Comments Follow-up Encounter Details Date Type Department Care Team (Late st Contact Info) Description 04/03/2015 3:30 PM EST Office Visit Hematology/Oncology at [address] [phone] John Beltran MD [facility] [place] [address] Bilateral malignant neoplasm of breast in female, unspecified site of breast Social History Tobacco Use Types Packs/Day Years [...] Sign Reading Time Taken Comments Blood Pressure - - Pulse 86 04/03/2015 3:52 PM EST Temperature - - Respiratory Rate 18 04/03/2015 3:52 PM EST Oxygen Saturation 96% 04/03/2015 3:52 PM EST Inhaled Oxygen Concentration - - Weight 65.3 kg (144 lb) 04/03/2015 3:52 PM EST Height 175.3 cm (5' 9.02) 04/03/2015 3:52 PM ES T Body Mass Index 21.26 04/03/2015 3:52 PM EST documented in this encounter Progress Notes * John Beltran MD - 04/02/2015 9:00 PM EST Subjective: Patient ID: Antonia Jennings is a 44 y.o. female. Problem List: 1. Cancer of the left breast, T2, N0, M0. A. Dx'd 01/29, s/p lumpectomy and ALND. Path-2.5-cm infiltrating ductal carcinoma, SBR score of 8. Final margins of resection were negative. Ten LNs were seen, all negative. ER/TX negative. HER2/cynthia negative. B. Four cycles of dose dense AC followed by two cycles of dose dense Taxol, then stopped due to peripheral neuropathy, completed 07/30. Adjuvant radiation was completed in 09/29. 2. Cancer of the right breast, T1, N0, M0. A. Screening MRI of the breast 08/01 - area of enhancement in the right breast. Bx - fibrocystic disease. Followup MRI 12/02 - area of persistent focal enhancement, 10 x 12 mm. Needle localization excisional bx showed a 1.5-cm invasive ductal carcinoma with clear cell and metaplastic spindle cell features. High grade, SBR score of 8. There was a minor component of DCIS. Margins of resection were negative. There was no ALI or perineural invasion. ER/TX negative. HER2/cynthia negative by FISH. B. In 02/01, she underwent right axillary lymphadenectomy. Two SLNs and three nonsentinel LNs were removed, all negative. LFTs were unremarkable and CXR was negative for metastatic disease. C. Adjuvant chemotherapy with CMF times six cycles completed in 08/02. 3. Bilateral prophylactic mastectomy on October 30, 2008 with staged breast reconstruction. 4. Family history: Her sister also has breast cancer. The patient was seen by the [facility] and underwent screening for BRCA-1 and 2, negative. ANGELA negative. 5. Pancreatitis 05/08 6. History of rectal fissure. 7. Status post tubal ligation and reversal. 8. Obstructive sleep apnea HPI Ms. Lance returns in f/u of bilateral breast cancer as above. It has been over five years since shecompleted adjuvant chemotherapy for the second cancer, which was of the right breast. She has undergone bilateral mastectomy with reconstruction. On presentation today, she feels well. Her weight is about 1/3 kg lower than when last seen in 11/07. She had been actively trying to lose weigh but would like to maintain where she is now. This has been primarily through dietary change. Her energy level is good. She is working. No areas of pain. She does BSE and has not noted any particular areas of concern but notes that they have decreased in size and she has some ten Her sister had stage IV breast cancer and unfortunately in 01/08 in [place]. She has another sister who had a breast bx which showed atypical ductal hyperplasia. She went ahead with prophylacticmastectomy and oophorectomy. Her sister's physicians have apparently discussed prophylactic bilateral mastectomy and oophorectomy and the patient wonders whether she should be thinking about oophorectomy although is not anxious to undergo any further procedures. Both the patient and her sister havehad BRCA testing and both are negative. There is a third unaffected sister as well. Review of Systems Constitutional: Negative. HENT: Negative. Eyes: Negative. Respiratory: Negative. Cardiovascular: Negative. Gastrointestinal: Negative. Genitourinary: Negative. Musculoskeletal: Negative. Skin: Negative. Neurological: Negative. Psychiatric/Behavioral: Negative. Objective: Physical Exam Constitutional: She is oriented to person, place, and time. She appears well- developed and well-nourished. No distress. HENT: Head: Normocephalic and atraumatic. Mouth/Throat: Oropharynx is clear and moist. No oropharyngeal exudate. Eyes: No scleral icterus. Cardiovascular: Normal rate and regular rhythm. Pulmonary/Chest: Effort normal and breath sounds normal. No respiratory distress. Abdominal: Soft. Bowel sounds are normal. She exhibits no distension and no mass. There is no tenderness. There is no guarding. Genitourinary: S/p bilateral mastectomy with reconstruction. Tissue appears symmetric. No discrete masses. Tenderness along sternum. Musculoskeletal: She exhibits no edema. Lymphadenopathy: She has no cervical adenopathy. She has no axillary adenopathy. Right: No supraclavicular adenopathy present. Left: No supraclavicular adenopathy present. Neurological: She is alert and oriented to person, place, and time. Coordination normal. Skin: Skin is warm and dry. No rash noted. Psychiatric: She has a normal mood and affect. Her behavior is normal. Vitals reviewed. Labs: Not performed Assessment and Plan: Ms. Lance is a 44 year-old female with a history of bilateral breast cancer as above. She completedtherapy in 2008. Clinically, she appears to be doing well without evidence of disease recurrence. No further intervention is planned at this time. We will plan to see her back in a year, sooner if needed. We have discussed her personal and family history of breast cancer. As noted above, she has a sister who lived in [place] and unfortunately of stage IV breast cancer in 01/08. She had been diagnosed at age 39. Both the patient and this sister have had BRCA testing and that is negative. The patient also had ANGELA testing which was negative. Another sister had a breast bx showing atypical hyperplasia. There was not evidence of DCIS. She underwent bilateral prophylactic mastectomy and oophorectomy. We had talked about oophorectomy in the past. We do not have a finding in her case to suggest an increased risk of ovarian cancer such as a BRCA mutation or a family h/o ovarian cancer and the pa tient is not anxious for another procedure. I think at a minimum, she should have annual exams and she does this through her PCP and [facility]. She asked about screening for her daughter, who is 22. It is a difficult question without clear guidelines in this situation. Given the family history, I think it would be reasonable for her to start screening in her late 20s or by age 30. documented in this encounter Plan of Treatment Not on file documented as of this encounter Visit Diagnoses Diagnosis Bilateral malignant neoplasm of breast in female, unspecified site of breast documented in this encounter Care Teams Lieutenant Firefighter Relationship Specialty Start Date End Date Marlon Levine MD [address] [place] [id number] PCP - General 06/20/12 documented as of this encounter
--- OUTSIDE RECORDS SUMMARY | 2023-11-09 16:22 | XMS_ITS | Encounter Summary ---
Author Organization [facility] Address [facility] [place] [address] Care Team Providers Care Detacker Name Role Phone Marlon Levine MD Primary Care Provider [phone] Reason for Visit * Reason Onset Date Comments Results 06/23/2016 Encounter Details Date Type Department Care Team (Late st Contact Info) Description 06/23/2016 Telephone Obstetrics [place] [phone] Valentina Moore MD [facility] [address] OBSTETRICS [place] [address] Results Social History Tobacco Use Types Packs/Day Years [...] Telephone Encounter - Valentina Moore MD - 06/23/2016 3:26 PM EDT ----- Message from Mara Templeton sent at 06/23/2016 9:22 AM EDT ----- Regarding: LEEP Contact: Pt is all set, scheduled for 07/26 @ 10:00am. She didn't have time this coming Monday in her schedule for one of your colp clinic times. She's just wondering why she needs to be scheduled for another LEEP when she had one done last year. She's not questioning you, but she was surprised that she needed another one and would like clarification. You can reach her at: [phone] Thanks, Mara If she needs to be seen sooner please let me know! ----- Message ----- From: Valentina Moore MD Sent: 06/22/2016 5:11 PM To: Mara Crockerzabeth, This pt is scheduled to see me next Thurs for a consult. But she really needs a LEEP.Can you call and see if she can switch into one of my colposcopy clinic spots and let her know thatI will do a minor procedure to remove the abnormal cells from her cervix that day? Valentina Hartmann documented in this encounter Plan of Treatment Not on file documented as of this encounter Visit Diagnoses Not on filedocumented in this encounter Care Teams Detacker Relationship Specialty Start Date End Date Marlon Levine MD [address] [place] [id number] PCP - General 06/20/12 documented as of this encounter
--- OUTSIDE RECORDS SUMMARY | 2023-11-09 16:22 | XMS_ITS | Encounter Summary ---
Author Organization [facility] [place] [address] Care Team Providers Care Clinical Education Coordinator Name Role Phone Marlon Levine MD Primary Care Provider [phone] Reason for Visit * Reason Onset Date Comments Results 08/18/2016 Encounter Details Date Type Department Care Team (Late st Contact Info) Description 08/18/2016 Telephone Obstetrics [place] [phone] Valentina Moore MD [facility] [address] OBSTETRICS [place] [address] Results Social History Tobacco Use Types Packs/Day [...] Telephone Encounter - Valentina Moore MD - 08/18/2016 2:32 PM EDT Spoke with Antonia about her pap results. rec colposcopy. Agrees. documented in this encounter Plan of Treatment Not on file documented as of this encounter Visit Diagnoses Not on filedocumented in this encounter Care Teams Clinical Education Coordinator Relationship Specialty Start Date End Date Marlon Levine MD [address] [place] [address] PCP - General 06/20/12 documented as of this encounter
--- OUTSIDE RECORDS SUMMARY | 2023-11-09 16:22 | XMS_ITS | Encounter Summary ---
Author Organization [facility] [place] [address] Care Team Providers Care Thread Winder Automatic Name Role Phone Marlon Levine MD Primary Care Provider [phone] Encounter Details Date Type Department Care Team (Late st Contact Info) Description 06/15/2017 2:15 PM EDT Office Visit Hematology/Oncology at [address] [phone] Ingrid Delacruz, LITIGATION EXAMINER [address] [facility] [place] [address] Malignant neoplasm of female breast, unspecified estrogen receptor status, unspecified laterality, unspecified site of breast Social History Tobacco [...] Sign Reading Time Taken Comments Blood Pressure 118/79 06/15/2017 2:22 PM EDT Pulse 90 06/15/2017 2:22 PM EDT Temperature 37.1 ??C (98.8 ??F) 06/15/2017 2:22 PM ED T Respiratory Rate 18 06/15/2017 2:22 PM EDT Oxygen Saturation 100% 06/15/2017 2:22 PM EDT Inhaled Oxygen Concentration - - Weight 72.6 kg (160 lb) 06/15/2017 2:22 PM EDT Height 175.3 cm (5' 9.02) 06/15/2017 2:22 PM ED T Body Mass Index 23.62 06/15/2017 2:22 PM EDT documented in this encounter Progress Notes * Ingrid Delacruz, LITIGATION EXAMINER - 06/15/2017 2:15 PM EDT Subjective: Patient ID: Antonia Jennings is a 46 y.o. female. Problem List: 1. Cancer of the left breast, T2, N0, M0. A. Dx'd 01/29, s/p lumpectomy and ALND. Path-2.5-cm infiltrating ductal carcinoma, SBR score of 8. Final margins of resection were negative. Ten LNs were seen, all negative. ER/[place] negative. HER2/cynthia negative. B. Four cycles of [...] There was no ALI or perineural invasion. ER/[place] negative. HER2/cynthia negative by FISH. B. In [...] breast cancer as above. It has been 9 years since she completed adjuvant chemotherapy for the second breast cancer, which was of the right breast. She has undergone bilateral mastectomy with reconstruction. 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 Her sister had stage IV breast cancer and unfortunately in 01/08 in [place]. She has another sister who had a breast bx which showed atypical ductal hyperplasia. She went ahead with prophylacticmastectomy and oophorectomy. Both the patient and her sister have had BRCA testing and both are negative. There is a third unaffected sister as well. Review of Systems Constitutional: Negative. HENT: Negative. Eyes: Negative. Respiratory: Negative. Cardiovascular: Negative. Gastrointestinal: Positive for constipation (x 2yrs but lately worsening). Genitourinary: Positive for dyspareunia (dryness). Musculoskeletal: Positive for arthralgias (hips bilat - R>L sometimes wakes her up at night, responds to tylenol; thinks she has had it off and on for years but lately more frequent and severe). Skin: Negative. Neurological: Negative. Mild tingling in hands/feet Psychiatric/Behavioral: The patient is not nervous/anxious (daughter is and delivering in 6wks - back home living with mom ). Memory/concentration issues- mild- needs to write things down. There were no vitals taken for this visit. Wt Readings from Last 3 Encounters: 06/09/17 71.9 kg (158 lb 9.6 oz) 08/23/16 69.4 kg (153 lb) 07/26/16 69.4 kg (153 lb 1.6 oz) Objective: Physical Exam Constitutional: She is oriented to person, place, and time. She appears well- developed and well-nourished. HENT: Head: Normocephalic. Eyes: Conjunctivae are normal. Pupils are equal, round, and reactive to light. Neck: Normal range of motion. Cardiovascular: Normal rate. Pulmonary/Chest: Effort normal. Abdominal: There is no guarding. Musculoskeletal: Normal range of motion. She exhibits tenderness (R upper femur/hip to palpation- mild; none on L; pain elicited with ROM of R hip laterally in both directions). She exhibits no edema. Neurological: She is alert and oriented to person, place, and time. She has normal reflexes. Skin: Skin is warm and dry. Psychiatric: She has a normal mood and affect. Her behavior is normal. Labs: 06/09/17 CBC: WBC 4.22 hemoglobin 14.4 platelets 166 CMP: Sodium 141 potassium 3.8 BUN 24 creatinine 0.62 glucose 76 calcium 9.3 total bili 0.46 AST 18 ALT 30 alk phos 87 total protein 8.0 albumin 4.4 Urinalysis: Entirely normal Bone scan-06/13/17 Note is made of a right convex scoliosis of the thoracic spine there is no abnormal radiotracer uptake in seen in the axillary or appendicular skeleton to suggest metastatic disease there is mild symmetric radiotracer uptake in the shoulders spine and left knee and left foot which is likely degenerative in nature Impression: No findings to suggest osseous metastatic disease. Findings most suggestive of arthritis. Assessment and Plan: Ms. Lance is a 46 year-old female with a history of bilateral breast cancer as above. She completedtherapy in 2008. Clinically, she appears to be doing well without evidence of disease recurrence. 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 I encouraged a yearly visit with her PCP last year however this year asks if she needs to see one for more than PRN illness issues- I toldher that an annual exam and basic labs of CBC and CMP are recommended yearly along with her ADHESIVE BANDAGE MACHINE OPERATOR fwup. Her daughter has not yet started screening. Given her bone pain and urine issues, I ordered labs,a bone scan, and a urinalysis all of which were entirely normal. I will plan to see her back in 1yrfor fwup. I asked her to see her PCP regarding the hip issue particularly as it wakes her at night. As noted above, she has a sister who lived in [place] and unfortunately of stage IV breast cancer [...] in the past. We do not have afinding in her case to suggest an increased risk of ovarian cancer such as a BRCA mutation or a family h/o ovarian cancer and the patient is not anxious for another procedure. I think at a minimum, she should have annual exams and she does this through her PCP and [facility]. She asked about screening for her daughter, who is 22. It is a difficult question without clear guidelines in this situation. Given the family history, it would be reasonable for her to start screening in her late 20s or by age 30. Ingrid Delacruz, MSN, AUTO BRAKE MECHANIC, AOCN Hematology/Oncology Nurse Practitioner [place], [place] [phone] Medical Oncology follow-up is based on ASCO guidelines which indicates physical examinations shouldbe performed every 3 to 6 months for the first 3 years; every 6 to 12 months for years 4 and 5 and annually thereafter. Http://jco.ascopubs.org/content/24/10/961/T1.expansion.html Recommendations for Breast Cancer Follow-Up and Management in the Adjuvant Setting Mode of Surveillance Recommendation* RECOMMENDED ?History/physical examination All women should have a careful history and physical examination every 3 to 6 mo for the first 3 yr after primary therapy, then every 6 to 12 mo for the next 2 yr, and then annually. The history and physical examination should be performed by a physician??? experienced in the surveillance of patients with cancer and in breast examination. Coordination of care The risk of breast cancer recurrence continues through 15 yr after primary treatment and beyond. Continuity of care for patients with breast cancer is recommended and should be performed by a physician experienced in the surveillance of patients with cancer and in breast examination, including the examination of irradiated breasts. Follow-up by a PCP seems to lead to the samehealth outcomes as specialist follow-up with good patient satisfaction. If a patient with early-stage breast cancer (tumor <5 cm and <4 positive nodes) desires follow-up exclusively by a PCP, care may be transferred to the PCP approximately 1 yr after diagnosis. Ifcare is transferred to a PCP, both the PCP and the patient should be informed of the appropriate follow-up and management strategy. Re-referral for further oncology assessment may be considered, as ne eded, especially for patients who are receiving adjuvant endocrine therapy. NOT RECOMMENDED ?Routine blood tests CBC testing is not recommended for routine breast cancer surveillance. Automated chemistry studies are not recommended for routine breast cancer surveillance. ?Imaging studies Chest x-rays are not recommended for routine breast cancer surveillance. Bone scans are not recommended for routine breast cancer surveillance. Ultrasound of the liver is not recommended for routine breast cancer surveillance. CT scanning is not recommended for routine breast cancer surveillance. FDG-PET scanning is not recommended for routine breast cancer surveillance. Breast MRI is not recommended for routine breast cancer surveillance. Breast cancer tumor marker testing The use of CA 15-3 or CA 27.29 is not recommended for routine surveillance of patients with breast cancer after primary therapy. CEAtesting is not recommended for routine surveillance of patients with breast cancer after primarytherapy. documented in this encounter Plan of Treatment Not on file documented as of this encounter Procedures Procedure Name Priority Date/Time Associated Diagnosis Comments DIAGNOSTIC RADIOLOGY SCAN 06/13/2017 12:00 AM EDT documented in this encounter Results * SCAN DOC: DIAGNOSTIC RADIOLOGY (06/13/2017 12:00 AM EDT) Anatomical Region Laterality Modality Other Narrative 06/13/2017 12:00 AM EDT Ordered by an unspecified provider. Scanning Provider MEDIA MGR SCAN EXT O RDR/RSLT documented in this encounter Visit Diagnoses Diagnosis Malignant neoplasm of female breast, unspecified estrogen receptor status, unspecified laterality, unspecified site of breast documented in this encounter Care Teams Thread Winder Automatic Relationship Specialty Start Date End Date Marlon Levine MD [address] [place] [id number] PCP - General 06/20/12 documented as of this encounter
--- OUTSIDE RECORDS SUMMARY | 2023-11-09 16:22 | XMS_ITS | Encounter Summary ---
Author Organization [facility] Address [facility] [place] [address] Care Team Providers Care Global Sales Director Name Role Phone Marlon Levine MD Primary Care Provider + [phone] Reason for Visit * Reason Comments Breast Cancer Encounter Details Date Type Department Care Team (Late st Contact Info) Description 03/07/2014 9:00 AM EST Office Visit Hematology Oncology at [address] [phone] John Beltran MD [facility] [place] [address] Malignant neoplasm of breast (female), unspecified site; Family history of malignant neoplasm of breast Discharge Disposition: Home Social History Tobacco Use Types Packs/Day Years Used Date Smoking Tobacco: Never Smokeless Tobacco: Never Alcohol Use Standard Drinks/Week Comments No 0 (1 standard drink = 0.6 oz pur e alcohol) Sex and Gender Information Value Date Recorded Sex Assigned at Not on file Gender Identity Not on file Sexual Orientation Not on file documented as of this encounter Progress Notes * John Beltran MD - 03/07/2014 10:00 AM EST Ms. Jennings was seen by Ronda Cruz, MS, CGC and myself in consultation at the request of Dr. Edd Beltran to advise regarding possible heritable predisposition to cancer. Antonia was previously seen by P in 2005; at that time, she opted for genetic testing of BRCA1 and BRCA2 genes. Subsequently, we formulated a plan in regards to Antonia's test result disclosure. Priscilla Rubi, our program hand winder, will contact Antonia in the near future in order to schedule a convenient date and time for a test result disclosure appointment. Testing will take approximately 2-3 weeks. Antonia will not be given her test result over the telephone. At the disclosure appointment, Antonia will be provided with her test result in person. At that time, we will discuss with Antonia the implications that this test result may have for her, as well as her family members. We will also provide Antonia withscreening guidelines for cancer prevention and early detection, as well as answer any questions shebrookey have. See above for HPI and full family history. She has no current complaints/sxs. Exam: Looks well. In no physical distress. Anicteric and without evident skin lesions. Alert and Oriented. A/P: Appropriate for genetic testing. Arrangements for result disclosure to be made. documented in this encounter Plan of Treatment Not on file documented as of this encounter Visit Diagnoses Diagnosis Malignant neoplasm of breast (female), unspecified site Family history of malignant neoplasm of breast documented in this encounter Care Teams Global Sales Director Relationship Specialty Start Date End Date Marlon Levine MD [address] [place] [address] PCP - General 06/20/12 documented as of this encounter
--- OUTSIDE RECORDS SUMMARY | 2023-11-09 16:22 | XMS_ITS | Encounter Summary ---
Author Organization [facility] [place] [address] Care Team Providers Care Manager Enrollment Name Role Phone Marlon Levine MD Primary Care Provider + [phone] Encounter Details Date Type Department Care Team (Late st Contact Info) Description 11/05/2013 [place] [phone] Laury Katz RN Social History Tobacco Use Types Packs/Day Years Used Date Smoking Tobacco: Never Smokeless Tobacco: Never Alcohol Use Standard Drinks/Week Comments No 0 (1 standard drink = 0.6 oz pur e alcohol) Sex and Gender Information Value Date Recorded Sex Assigned at Not on file Gender Identity Not on file Sexual Orientation Not on file documented as of this encounter Progress Notes * Laury Katz RN - 11/05/2013 4:01 PM EDT [facility] Surgery Follow Up Note Range of motion of surgical arm complete Lymphedema present No Cosmesis-surgeon reported Cosmesis-patient reported Local or regional recurrence No Contralateral cancer present Yes Date of contralateral cancer: 2004 Distant recurrence present No Date of last follow up 04/19/2013 LAURY KATZ RN 11/05/2013 documented in this encounter Plan of Treatment Not on file documented as of this encounter Visit Diagnoses Not on filedocumented in this encounter Care Teams Manager Enrollment Relationship Specialty Start Date End Date Marlon Levine MD [address] [place] [address] PCP - General 06/20/12 documented as of this encounter
--- OUTSIDE RECORDS SUMMARY | 2023-11-09 16:22 | XMS_ITS | Encounter Summary ---
Author Organization [facility]ly [facility] [place] [address] Care Team Providers Care Claims Agent Right Of Way Name Role Phone Marlon Levine MD Primary Care Provider [phone] Encounter Details Date Type Department Care Team (Late st Contact Info) Description 06/09/2017 11:15 AM EDT Office Visit Hematology/Oncology at [address] [phone] Ingrid Delacruz, AUDITOR [address] [facility] [place] [address] Malignant neoplasm of female breast, unspecified estrogen [...] Sign Reading Time Taken Comments Blood Pressure 120/73 06/09/2017 11:20 AM EDT Pulse 80 06/09/2017 11:20 AM EDT Temperature 36.7 ??C (98.1 ??F) 06/09/2017 11:20 AM E DT Respiratory Rate 16 06/09/2017 11:20 AM EDT Oxygen Saturation 100% 06/09/2017 11:20 AM EDT Inhaled Oxygen Concentration - - Weight 71.9 kg (158 lb 9.6 oz) 06/09/2017 11:20 AM EDT Height 175.3 cm (5' 9.02) 06/09/2017 11:20 AM E DT copied Body Mass Index 23.41 06/09/2017 11:20 AM EDT documented in this encounter Progress Notes * Ingrid Delacruz, AUDITOR - 06/09/2017 11:15 AM EDT Subjective: Patient ID: Antonia Jennings is a 46 y.o. female. Problem List: 1. Cancer of the left breast, T2, N0, M0. A. Dx'd 01/29, s/p lumpectomy and ALND. Path-2.5-cm infiltrating ductal carcinoma, SBR score of 8. Final margins of resection were negative. Ten LNs were seen, all negative. ER/NH negative. HER2/cynthia negative. B. Four cycles of [...] There was no ALI or perineural invasion. ER/NH negative. HER2/cynthia negative by FISH. B. In [...] breast cancer and unfortunately in 01/08 in [place]. She has another sister who had a [...] lately worsening). Genitourinary: Positive for dyspareunia (dryness). Urine smells abnormal Musculoskeletal: Positive for arthralgias (hips bilat - [...] issues- mild- needs to write things down. BP 120/73 (Patient Position: Sitting) Pulse 80 Temp 36.7 ??C (98.1 ??F) (Oral) Resp 16 Ht 175.3 cm (5' 9.02) Comment: copied Wt 71.9 kg (158 lb 9.6 oz) SpO2 100% BMI 23.41 kg/m2 Wt Readings from Last 3 Encounters: 06/09/17 71.9 kg (158 lb 9.6 oz) 08/23/16 69.4 kg (153 lb) 07/26/16 69.4 kg (153 lb 1.6 oz) Distress Scale Distress Score: 0 When Screening Completed: After treatment completion Screening Location: [facility] Onc Objective: Physical Exam Constitutional: She is oriented to person, place, and time. She appears well- developed and well-nourished. HENT: Head: Normocephalic. Eyes: Conjunctivae are normal. Pupils are equal, round, and reactive to light. Neck: Normal range of motion. Neck supple. Cardiovascular: Normal rate and regular rhythm. Pulmonary/Chest: Effort normal and breath sounds normal. Abdominal: Soft. She exhibits no distension and no mass. There is no tenderness. Musculoskeletal: Normal range of motion. She exhibits tenderness (R upper femur/hip to palpation- mild; none on L; pain elicited with ROM of R hip laterally in both directions). She exhibits no edema. Lymphadenopathy: She has no cervical adenopathy. Neurological: She is alert and oriented to [...] protein 8.0 albumin 4.4 Urinalysis: Entirely normal Assessment and Plan: Ms. Lance is a 46 year-old female with a history of bilateral breast cancer as above. She completedtherapy in 2008. Clinically, she appears to be doing well without evidence of disease recurrence. 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 I encouraged a yearly visit with her PCP last year however this year asks if she needs to see one for more than PRN illness issues- I toldher that an annual exam and basic labs of CBC and CMP are recommended yearly along with her DOCUMENT DESIGN SPECIALIST fwup. Her daughter has not yet started screening. Given her bone pain and urine issues, I have ordered labs, a bone scan, and a urinalysis today, labs and urinalysis were entirely normal. I will plan to see her back in 2wks for fwup after her bone scan to discuss results. As noted above, she has a sister who lived in [place] and unfortunately of stage IV breast cancer [...] or by age 31. Ingrid Delacruz, MSN, SCHEDULE CLERK, AOCN Hematology/Oncology Nurse Practitioner [place], [place] [phone] documented in this encounter Plan of Treatment Not on file documented as of this encounter Visit Diagnoses Diagnosis Malignant neoplasm of female breast, unspecified estrogen receptor status, unspecified laterality, unspecified site of breast documented in this encounter Care Teams Claims Agent Right Of Way Relationship Specialty Start Date End Date Marlon Levine MD [address] [place] [id number] PCP - General 06/20/12 documented as of this encounter
--- OUTSIDE RECORDS SUMMARY | 2023-11-09 16:22 | XMS_ITS | Encounter Summary ---
Author Organization [facility] [place] [address] Care Team Providers Care Laboratory Apparatus Glass Blower Name Role Phone Marlon Levine MD Primary Care Provider [phone] Reason for Visit * Reason Onset Date Comments Other 05/07/2020 Encounter Details Date Type Department Care Team (Late st Contact Info) Description 05/07/2020 Telephone Hematology/Oncology at [address] [phone] Ary Felix RN Other Social History Tobacco Use Types Packs/Day Years [...] encounter Miscellaneous Notes * Telephone Encounter - Ary Felix RN - 05/07/2020 12:16 PM EST Antonia calls and states PCP is wondering what kind of test should happen to follow up on possible recurrence of breast cancer. Reviewed with Dr. Beltran who spoke with Dr. Joe that someone who had bilateral mastectomies (pt had done) she is to have yearly chest wall and wilver exams, no mammograms or MRIs. Pt agrees with plan. documented in this encounter Plan of Treatment Not on file documented as of this encounter Visit Diagnoses Not on filedocumented in this encounter Care Teams Laboratory Apparatus Glass Blower Relationship Specialty Start Date End Date Marlon Levine MD [address] [place] [address] PCP - General 06/20/12 documented as of this encounter
--- OUTSIDE RECORDS SUMMARY | 2023-11-09 16:22 | XMS_ITS | Encounter Summary ---
Author Organization [facility] [place] [address] Care Team Providers Care Medical Writer Name Role Phone Marlon Levine MD Primary Care Provider + [phone] Encounter Details Date Type Department Care Team (Late st Contact Info) Description 11/08/2013 Telephone [place] [phone] Jennifer Marin, RN Social History Tobacco Use Types Packs/Day [...] encounter Miscellaneous Notes * Telephone Encounter - Jennifer Tate - 11/08/2013 8:40 AM EDT Received call from patient in regards to letter received from our department in reference to scheduling a follow-up appointment with Dr. Tesfaye (previous Dr. Chen patient). Patient has decided not tofollow-up at this time because she states Dr. Chen had advised before she left that there is no need for her to follow-up if she is doing ok and patient states she is doing fine. Will notify patient???s PCP, Dr. Levine. documented in this encounter Plan of Treatment Not on file documented as of this encounter Visit Diagnoses Not on filedocumented in this encounter Care Teams Medical Writer Relationship Specialty Start Date End Date Marlon Levine MD [address] [place] [address] PCP - General 06/20/12 documented as of this encounter
--- OUTSIDE RECORDS SUMMARY | 2023-11-09 16:22 | XMS_ITS | Encounter Summary ---
Author Organization Formerly [facility] [place] [address] Care Team Providers Care High School Science Tutor Name Role Phone Marlon Levine MD Primary Care Provider + [phone] Encounter Details Date Type Department Care Team (Late st Contact Info) Description 07/01/2013 2:09 PM EDT Anesthesia [place] [phone] Satnam Guerra MD [facility] [place] [address] Mauro Gold CRNA [facility] [place] [address] Anesthesia Record Procedure Summary Procedure Name Responsible Anesthesiologist Anesthesia Start Time Anesthesia Stop Time EGD, UPPER GI ENDOSCOPY (WRVU 2.09) (Trunk) Satnam Guerra MD 07/01/13 1409 07/01/13 1438 Events Date Time Event Comment 07/01/2013 1249 1409 AN Verify 1409 Start 1412 An Start Data 1415 An Induction 1419 Anesthesia Ready 1420 Procedure Start 1430 an stop data 1438 Stop 1438 Quick Note Procedure compl ete. Patient in recovery. VSS airway natural. Report given Meds Name Total propofol 200 mg propofol INF 154.8 mg lactated ringers infusion 0 mL * Agents Name O2 Auxiliary Flowmeter 1 * Blood No blood administrations on file. Lines, Drains, and Airways Type Details Placement Removal (RETIRED) Peripheral IV Line - Single Lumen 07/01/13; 1222; median cubital vein (antecubital fossa), right; [id number] catheter system; 22 gauge, 1 in length; pepper; intradermal injection; 0; 07/01/13; 1750 07/01/13 1222 by Kim Dowell RN 07/01/13 1750 by Chay Lechuga documented in this encounter Social History Tobacco Use Types Packs/Day Years Used Date Smoking Tobacco: Never Smokeless Tobacco: Never Alcohol Use Standard Drinks/Week Comments No 0 (1 standard drink = 0.6 oz pur e alcohol) Sex and Gender Information Value Date Recorded Sex Assigned at Not on file Gender Identity Not on file Sexual Orientation Not on file documented as of this encounter OR Notes * Anesthesia Postprocedure Evaluation - Satnam Guerra MD - 07/01/2013 3:45 PM EDT Patient: Antonia Lance Procedure(s) Performed: Procedure(s): EGD, UPPER GI ENDOSCOPY Actual Anesthetic: @ANTYPEFINAL@ Patient location: PACU Post-op pain: Adequate analgesia Post-op nausea: no nausea or vomiting Last Vitals: Filed Vitals: 07/01/13 1442 BP: 114/77 Pulse: 86 Temp: Resp: 16 Post-op cardiovascular and respiratory status: is stable Level of consciousness: awake, alert and oriented Complications: no apparent complications and tolerated the procedure well Fluid Status: normal * Anesthesia Preprocedure Evaluation - Satnam Guerra MD - 07/01/2013 12:45 PM EDT Pre-Anesthesia Evaluation for: Antonia Lance a 42 y.o. female. Procedure(s): EGD, UPPER GI ENDOSCOPY Patient Active Problem List Diagnosis ??? Esotropia Accommodative spasm ??? Mass ??? Migraine ??? Halo nevus ??? Neurodermatitis ??? Pleural effusion ??? Pancreatitis ??? Breast cancer Past Medical History Diagnosis Date ??? Esotropia 02/26/2013 Past Surgical History Procedure Date ??? Endoscopic us exam, esoph 05/30/2011 UPPER EUS- ENDOSCOPIC ULTRASOUND performed by CHUCHO ZAPATA at [facility] ENDOSCOPY History Substance Use Topics ??? Smoking status: Never Smoker ??? Smokeless tobacco: Never Used ??? Alcohol Use: No History Drug Use No Allergies Allergen Reactions ??? Adhesive Tape Rash ??? Azithromycin Hives ??? Chlorhexidine Gluconate Rash Medications: MAR and/or home medications have been reviewed. Physical Exam: There were no vitals filed for this visit. There is no height or weight on file to calculate BMI. Airway Assessment: Mallampati: II TM distance: >3 FB Neck ROM: full Cardiovascular Assessment: Rhythm: regular Pulmonary Assessment: (-) wheezes Dental Assessment: - normal exam Misc Assessment: IV access: Peripheral line Anesthesia Plan: ASA 2 general, i'm a lightweight Otherwise healthy, has tolerated GA without difficulty in the past. Informed Consent: Anesthetic plan and risks discussed with patient. Mis. Assessment: documented in this encounter Plan of Treatment Not on file documented as of this encounter Visit Diagnoses Not on filedocumented in this encounter Administered Medications Inactive Administered Medications - up to 3 most recent administrations Medication Order MAR Action Action Date Dose Rate Site lactated ringers infusion 100 mL/hr, Intravenous, CONTINUOUS, Starting on Mon07/01/13 at 1230, Until Mon07/01/13 at 1520, Endoscopy (Day of Procedure) New Bag 07/01/2013 2:09 PM EDT mL propofol (DIPRIVAN) 10 mg/mL bolus injection (Anesthesia) PRN, Starting on Mon07/01/13 at 1415, Until Mon07/01/13 at 1439, Anesthesia Intra-op Given 07/01/2013 2:19 PM EDT 100 mg Given 07/01/2013 2:17 PM EDT 50 mg Given 07/01/2013 2:15 PM EDT 50 mg propofol (DIPRIVAN) infusion CONTINUOUS PRN, Starting on Mon07/01/13 at 1415, Until Mon07/01/13 at 1439, Anesthesia Intra-op, Routine Rate/Dose Change 07/01/2013 2:20 PM EDT 250 mcg/kg/min 108 mL/hr Rate/Dose Change 07/01/2013 2:17 PM EDT 200 mcg/kg/min 86. 4 mL/hr New Bag 07/01/2013 2:15 PM EDT 150 mcg/kg/min 64.8 mL/h r documented in this encounter Care Teams High School Science Tutor Relationship Specialty Start Date End Date Marlon Levine MD [address] [address] PCP - General 06/20/12 documented as of this encounter
--- OUTSIDE RECORDS SUMMARY | 2023-11-09 16:22 | XMS_ITS | Encounter Summary ---
Author Organization [facility] Address [facility] [place] [address] Care Team Providers Care Director Child Name Role Phone Marlon Levine MD Primary Care Provider [phone] Encounter Details Date Type Department Care Team (Late st Contact Info) Description 07/26/2018 8:45 AM EDT Office Visit Hematology/Oncology at [address] [phone] Celeste Le APRN [facility] [place] [address] Malignant neoplasm of female breast, unspecified estrogen [...] Sign Reading Time Taken Comments Blood Pressure 111/70 07/26/2018 8:52 AM EDT Pulse 79 07/26/2018 8:52 AM EDT Temperature 36.7 ??C (98.1 ??F) 07/26/2018 8:52 AM ED T Respiratory Rate 18 07/26/2018 8:52 AM EDT Oxygen Saturation 100% 07/26/2018 8:52 AM EDT Inhaled Oxygen Concentration - - Weight 81.6 kg (179 lb 12.8 oz) 07/26/2018 8:52 AM EDT Height 175.3 cm (5' 9) 07/26/2018 8:52 AM EDT Body Mass Index 26.55 07/26/2018 8:52 AM EDT documented in this encounter Patient Instructions * Patient Instructions* Celeste Le APRN - 07/26/2018 8:45 AM EDT She will not need any followup at this time. documented in this encounter Progress Notes * Celeste Le APRN - 07/26/2018 8:45 AM EDT Subjective: Patient ID: Antonia Jennings is a 47 y.o. female. Problem List: 1. Cancer of the left breast, T2, N0, M0. A. Dx'd 01/29, s/p lumpectomy and ALND. Path-2.5-cm infiltrating ductal carcinoma, SBR score of 8. Final margins of resection were negative. Ten LNs were seen, all negative. ER/[place] negative. HER2/cynthia negative. B. Four cycles of [...] There was no ALI or perineural invasion. ER/[place] negative. HER2/cynthia negative by FISH. B. In [...] breast cancer as above. It has been 10 years since she completed adjuvant chemotherapy for the second breast cancer, which was of the right breast. She has undergone bilateral mastectomy with reconstruction. 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 Her sister had stage IV breast cancer and unfortunately in 01/08 in [place]. She has another sister who had a breast bx which showed atypical ductal hyperplasia. She went ahead with prophylacticmastectomy and oophorectomy. Both the patient and her sister have had BRCA testing and both are negative. There is a third unaffected sister as well. Interim history: she has lost 20 lbs over the last year. Overall she has felt very good. She has nonew medical problems and is not on any new medicaitons. 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 She is excited about this. She still has her constipation issue and her arthralgias. Review of Systems Constitutional: Negative. HENT: Negative. Eyes: Negative. Respiratory: Negative. Cardiovascular: Negative. Gastrointestinal: Positive for constipation (x 3yrs but lately worsening). Genitourinary: Positive for dyspareunia (dryness). Musculoskeletal: Positive for arthralgias (hips bilat - R>L sometimes wakes her up at night, responds to tylenol; thinks she has had it off and on for years but lately more frequent and severe). Skin: Negative. Neurological: Negative. Mild tingling in hands/feet Psychiatric/Behavioral: The patient is not nervous/anxious. BP 111/70 (Patient Position: Sitting) Pulse 79 Temp 36.7 ??C (98.1 ??F) (Oral) Resp 18 Ht 175.3 cm (5' 9) Wt 81.6 kg (179 lb 12.8 oz) SpO2 100% BMI 26.55 kg/m?? Wt Readings from Last 3 Encounters: 07/26/18 81.6 kg (179 lb 12.8 oz) 06/15/17 72.6 kg (160 lb) 06/09/17 71.9 kg (158 lb 9.6 oz) Objective: Physical Exam Constitutional: She is oriented to person, place, and time. She appears well- developed and well-nourished. HENT: Head: Normocephalic. Eyes: Pupils are equal, round, and reactive to light. Conjunctivae are normal. Neck: Normal range of motion. Cardiovascular: Normal [...] and affect. Her behavior is normal. Labs: 01/05/18 CBC: WBC 3.25 hemoglobin 13.5 platelets 161 CMP: Sodium 142 potassium 3.9 BUN 15 creatinine 0.61 glucose 84 calcium 8.8 total bili 0.4 AST 21 ALT 26 alk phos 110 total protein 7.2 albumin 3.8 Bone scan-06/13/17 Note is made of a [...] Assessment and Plan: Ms. Lance is a 47 y.o. female with a history of bilateral breast cancer as above. She completed therapy in 2008. Clinically, she appears to be doing well without evidence of disease recurrence. 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 I encouraged a yearly visit with her PCP last year however this year asks if she needs to see one for more than PRN illness issues- I told herthat an annual exam and basic labs of CBC and CMP are recommended yearly along with her RESIDENTIAL DESIGNER fwup. Her daughter has not yet started screening. Given her bone pain and urine issues, I ordered labs, a bone scan, and a urinalysis all of which were entirely normal. I will plan to see her back in 1yr forfwup. I asked her to see her PCP regarding the hip issue particularly as it wakes her at night. As noted above, she has a sister who lived in [place] and unfortunately of stage IV breast cancer [...] her late 20s or by age 31. TODAY: She is now 10 yrs from her second diagnosis of breast cancer. She is doing very well. She will continue with annual followups with her PCP. At this point, we no longer need to follow her. She knows that should she develop any problems we would be happy to see her back at any time. We discussed her chronic constipation. She needs to increase the fiber in her diet, more water. Sheis using colace on a daily basis. She is doing a manual disimpaction at least once week. If this does not improve, I have recommended that she see GI. I can make a referral for her or her PCP can do this for her. She understands that we would be happy to do this for her. She will need a colonoscopyat age 51. documented in this encounter Plan of Treatment Not on file documented as of this encounter Visit Diagnoses Diagnosis Malignant neoplasm of female breast, unspecified estrogen receptor status, unspecified laterality, unspecified site of breast documented in this encounter Care Teams Director Child Relationship Specialty Start Date End Date Marlon Levine MD [address] [place] [address] PCP - General 06/20/12 documented as of this encounter
--- OUTSIDE RECORDS SUMMARY | 2023-11-09 16:22 | XMS_ITS | Encounter Summary ---
Author Organization [facility] Address [facility] [place] [address] Care Team Providers Care Paper Cone Drying Machine Operator Name Role Phone Marlon Levine MD Primary Care Provider [phone] Reason for Referral * Consultation (Routine) - Closed Specialty Diagnoses / Procedures Referred By Contac t Referred To Contact Obstetrics and Gynecology Diagnoses Malignant neoplasm of female breast, unspecified laterality, unspecified site of breast Ingrid Delacruz APRN [address] [place] [address] Valentina Moore MD [facility] OBSTETRICS [place] [address] Referral ID Status Reason Start Date Expiration Date V isits Requested Visits Authorized [id number] Closed Assume Subset of Care 05/27/2016 05/27/2017 1 1 Encounter Details Date Type Department Care Team (Late st Contact Info) Description 05/27/2016 8:45 AM EST Office Visit Hematology/Oncology at [address] [address] Ingrid Delacruz APRN [address] [place] [address] Malignant neoplasm of female breast, unspecified laterality, unspecified site of breast Social [...] Sign Reading Time Taken Comments Blood Pressure 122/75 05/27/2016 8:45 AM EST Pulse 68 05/27/2016 8:45 AM EST Temperature 36.7 ??C (98.1 ??F) 05/27/2016 8:45 AM ES T Respiratory Rate 16 05/27/2016 8:45 AM EST Oxygen Saturation 100% 05/27/2016 8:45 AM EST Inhaled Oxygen Concentration - - Weight 69.4 kg (153 lb) 05/27/2016 8:45 AM EST Height 175.3 cm (5' 9.02) 05/27/2016 8:45 AM ES T Body Mass Index 22.58 05/27/2016 8:45 AM EST documented in this encounter Progress Notes * Ingrid Delacruz, DARK ROOM ATTENDANT - 05/27/2016 8:45 AM EST Subjective: Patient ID: Antonia Jennings is a 45 y.o. female. Problem List: 1. Cancer of the left breast, T2, N0, M0. A. Dx'd 01/29, s/p lumpectomy and ALND. Path-2.5-cm infiltrating ductal carcinoma, SBR score of 8. Final margins of resection were negative. Ten LNs were seen, all negative. ER/IL negative. HER2/cynthia negative. B. Four cycles of [...] There was no ALI or perineural invasion. ER/IL negative. HER2/cynthia negative by FISH. B. In [...] breast cancer as above. It has been 8 years since she completed adjuvant chemotherapy for the second cancer, which was of the right breast. She has undergonebilateral mastectomy with reconstruction. On presentation today, she related that she had recently been having abnormal bleeding (periods stopped about 3yrs ago) and went to local women's health clinic where she had a colposcopy with positive findings of CIN3. She since has been otherwise asymptomatic but is understandably concerned about appropriate fwup and possible link between her cervical pre-cancer and her two breast cancers. She does not see her PCP regularly. Her sister had stage IV breast cancer [...] Negative. Skin: Negative. Neurological: Negative. Psychiatric/Behavioral: Negative. BP 122/75 (Patient Position: Sitting) Pulse 68 Temp 36.7 ??C (98.1 ??F) (Oral) Resp 16 Ht 175.3 cm (5' 9.02) Wt 69.4 kg (153 lb) SpO2 100% BMI 22.58 kg/m2 Wt Readings from Last 3 Encounters: 05/27/16 69.4 kg (153 lb) 04/03/15 65.3 kg (144 lb) 11/22/13 66.7 kg (147 lb) Objective: Physical Exam Constitutional: She is oriented [...] Musculoskeletal: Normal range of motion. She exhibits no edema. Lymphadenopathy: She has no cervical adenopathy. Neurological: She is alert and oriented to person, place, and time. She has normal reflexes. Skin: Skin is warm and dry. Psychiatric: She has a normal mood and affect. Her behavior is normal. Labs: Not performed Assessment and Plan: Ms. Lance is a 44 year-old female with a history of bilateral breast cancer as above. She completedtherapy in 2008. Clinically, she appears to be doing well without evidence of disease recurrence. Given her high risk breast cancer history and now her recent SPONGE PACKER history, I would prefer that she be evaluated and followed at [facility] and have given her a referral to Valentina Moore MD and obtained her records which will be scanned into scanned doc tab of her [facility] chart. I also reviewed s&s of both mets breast CA sx to be alert to, as well as long-term possible cardiac issues of cancer treatment. We will plan to see her back in a year, sooner if needed. I encouraged a yearly visit with her PCP and basic labs of CBC and CMP. Her daughter has not yet started screening. As noted above, she has a sister [...] reasonable for her to start screening in herlate 20s or by age 30. Ingrid Delacruz, MSN, OIL PUMP STATION OPERATOR CHIEF, AOCN Hematology/Oncology Nurse Practitioner [place], [place] [phone] documented in this encounter Plan of Treatment Scheduled Referrals Name Type Priority Associated Diagnoses Orde r Schedule Referral to Ob-Director Of Development Outpatient Referral Routine Malignant Neoplasm Of Female Breast, Unspecified Laterality, Unspecified Site Of Breast Ordered: 05/27/2016 documented as of this encounter Procedures Procedure Name Priority Date/Time Associated Diagnosis Comments CT SCAN (SCAN) 10/05/2016 12:00 AM EDT SURGICAL PATHOLOGY SCAN 01/06/2016 12:[address] SCAN (SCAN) 12/16/2015 12:00 AM EDT SURGICAL PATHOLOGY SCAN 11/17/2015 12:00 AM EDT DIAGNOSTIC RADIOLOGY SCAN 07/28/2015 12:00 AM EDT DIAGNOSTIC RADIOLOGY SCAN 10/05/2014 12:00 AM EDT MRI/MRA SCAN 06/19/2012 12:00 AM EDT documented in this encounter Results * SCAN DOC: CT SCAN (10/05/2016 12:00 AM EDT) Anatomical Region Laterality Modality Other Narrative 10/05/2016 12:00 AM EDT Ordered by an unspecified provider. Scanning Provider MEDIA MGR SCAN EXT O RDR/RSLT * SCAN DOC: SURGICAL PATHOLOGY (01/06/2016 12:00 AM EDT) Narrative 01/06/2016 12:00 AM EDT Ordered by an unspecified provider. Scanning Provider MEDIA MGR SCAN EXT O RDR/RSLT * SCAN DOC: CT SCAN (12/16/2015 12:00 AM EDT) Anatomical Region Laterality Modality Other Narrative 12/16/2015 12:00 AM EDT Ordered by an unspecified provider. Scanning Provider MEDIA MGR SCAN EXT O RDR/RSLT * SCAN DOC: SURGICAL PATHOLOGY (11/17/2015 12:00 AM EDT) Narrative 11/17/2015 12:00 AM EDT Ordered by an unspecified provider. Scanning Provider MEDIA MGR SCAN EXT O RDR/RSLT * SCAN DOC: DIAGNOSTIC RADIOLOGY (07/28/2015 12:00 AM EDT) Anatomical Region Laterality Modality Other Narrative 07/28/2015 12:00 AM EDT Ordered by an unspecified provider. Scanning Provider MEDIA MGR SCAN EXT O RDR/RSLT * SCAN DOC: DIAGNOSTIC RADIOLOGY (10/05/2014 12:00 AM EDT) Anatomical Region Laterality Modality Other Narrative 10/05/2014 12:00 AM EDT Ordered by an unspecified provider. Scanning Provider MEDIA MGR SCAN EXT O RDR/RSLT * SCAN DOC: MRI/MRA (06/19/2012 12:00 AM EDT) Anatomical Region Laterality Modality Other Narrative 06/19/2012 12:00 AM EDT Ordered by an unspecified provider. Scanning Provider MEDIA MGR SCAN EXT O RDR/RSLT documented in this encounter Visit Diagnoses Diagnosis Malignant neoplasm of female breast, unspecified laterality, unspecified site of breast documented in this encounter Care Teams Paper Cone Drying Machine Operator Relationship Specialty Start Date End Date Marlon Levine MD [address] [place] [address] PCP - General 06/20/12 documented as of this encounter
--- OUTSIDE RECORDS SUMMARY | 2023-11-09 16:22 | XMS_ITS | Encounter Summary ---
Author Organization [facility] Address [facility] [place] [address] Care Team Providers Care Financial Services Specialist Name Role Phone Marlon Levine MD Primary Care Provider [phone] Encounter Details Date Type Department Care Team (Latest Contact Info) Description 07/01/2013 3:28 PM EDT - 07/01/2013 11:59 PM EDT Hospital [place] [phone] CLINIC, Tali Loco MD [facility] [place] [address] Weight loss Discharge Disposition: Home Social History Tobacco Use Types Packs/Day Years Used Date Smoking Tobacco: Never Smokeless Tobacco: Never Alcohol Use Standard Drinks/Week Comments No 0 (1 standard drink = 0.6 oz pur e alcohol) Sex and Gender Information Value Date Recorded Sex Assigned at Not on file Gender Identity Not on file Sexual Orientation Not on file documented as of this encounter Medications at Time of Discharge Medication Sig Dispensed Refills Start Date End Date CYANOCOBALAMIN, VITAMIN B-12, (VITAMIN B-12 ORAL) Take 1 tablet by mouth daily. UNABLE TO FIND Take 100 mg by mouth daily. Vitamin B 2 - 2 tabs in the AM ibuprofen (ADVIL;MOTRIN) 800 mg tablet Take 1 tablet by mouth as needed. Reported on 05/27/2016 acetaminophen (TYLENOL) 325 mg tablet Take 650 mg by mouth every 6 hours as needed. Reported on 05/27/2016 omeprazole (PRILOSEC) 20 mg capsule Take 1 capsule by mouth daily. 90 capsule 3 07/01/2013 11/22/2013 dicyclomine (BENTYL) 10 mg capsule Take 2 capsules by mouth 4 times daily as needed. 200 capsule 5 06/21/2013 11/22/2013 documented as of this encounter Plan of Treatment Not on file documented as of this encounter Procedures Procedure Name Priority Date/Time Associated Diagnosis Comments CT ABDOMEN AND PELVIS W CONTRAST Routine 07/01/2013 5:53 PM EDT Weight loss documented in this encounter Results * CT abdomen & pelvis with contrast (07/01/2013 5:53 PM EDT) Anatomical Region Laterality Modality Abdomen, Pelvis Computed Tomogra phy 07/01/2013 5:53 PM EDT Narrative 07/01/2013 7:[address] Abdomen / Pelvis With Contrast Clinical History Increased epigastric abdominal pain and weight loss. Comparison 04/24/2011. Technique The patient was scanned from the diaphragm through the pubic symphysis using oral contrast and 110 mL of Omnipaque 350 IV contrast. Findings Abdomen: ??The lung bases are clear. ??Below the diaphragm, the liver, gallbladder, spleen, pancreas, kidneys, and adrenal glands appear normal. ??No enlarged lymph nodes or abnormal fluid collections are seen. ??There is a large amount of stool throughout the colon. Pelvis: ??There is no interval change. ??Again noted are an IUD and prominent pelvic veins in the adnexa. ??No enlarged lymph nodes or abnormal fluid collections are seen. No significant bony abnormalities are seen. Impression No acute process or evidence of malignancy. Constipation. Prominent pelvic veins of unknown clinical significance. Procedure Note Bethel Mojica MD - 07/01/[address] Abdomen / Pelvis With Contrast Clinical History Increased epigastric abdominal pain and weight loss. Comparison 04/24/2011. Technique The patient was scanned from the diaphragm through the pubic symphysisusing oral contrast and 110 mL of Omnipaque 350 IV contrast. Findings Abdomen: The lung bases are clear. Below the diaphragm, the liver, gallbladder, spleen, pancreas, kidneys, and adrenal glands appear normal.No enlarged lymph nodes or abnormal fluid collections are seen. There is alarge amount of stool throughout the colon. Pelvis: There is no interval change. Again noted are an IUD andprominent pelvic veins in the adnexa. No enlarged lymph nodes or abnormal fluid collections are seen. No significant bony abnormalities are seen. Impression No acute process or evidence of malignancy. Constipation. Prominent pelvic veins of unknown clinical significance. Tali Kamara MD IMG CT ORDERABLES documented in this encounter Visit Diagnoses Diagnosis Weight loss Loss of weight documented in this encounter Administered Medications Inactive Administered Medications - up to 3 most recent administrations Medication Order MAR Action Action Date Dose Rate Site iohexol (OMNIPAQUE) 350 mg iodine/mL injection 17,500 mg 17,500 mg (50 mL), Oral, ONCE PRN, 1 dose, Starting on Mon07/01/13 at 1741, Until Mon07/01/13 at 1742, Per Protocol, Routine Given 07/01/2013 5:42 PM EDT 17,500 mg iohexol (OMNIPAQUE) 350 mg iodine/mL injection 38,500 mg 38,500 mg (110 mL), Intravenous, ONCE PRN, 1 dose, Starting on Mon07/01/13 at 1741, Until Mon07/01/13 at 1748, Per Protocol, Routine Given 07/01/2013 5:48 PM EDT 38,500 mg documented in this encounter Care Teams Financial Services Specialist Relationship Specialty Start Date End Date Marlon Leivne MD [address] [place] [address] PCP - General 06/20/12 documented as of this encounter
--- OUTSIDE RECORDS SUMMARY | 2023-11-09 16:22 | XMS_ITS | Encounter Summary ---
Author Organization [facility] Address [facility] [place] [address] Care Team Providers Care Boating Safety Officer Name Role Phone Marlon Levine MD Primary Care Provider + [phone] Encounter Details Date Type Department Care Team (Late st Contact Info) Description 07/26/2016 10:00 AM EDT Office Visit Obstetrics [place] [address] Valentina Moore MD [facility] [address] OBSTETRICS [place] [address] Cervical dysplasia, moderate Social History Tobacco Use Types Packs/Day Years Used Date Smoking Tobacco: Never Smokeless Tobacco: Never Alcohol Use Standard Drinks/Week Comments No 0 (1 standard drink = 0.6 oz pur e alcohol) Sex and Gender Information Value Date Recorded Sex Assigned at Not on file Gender Identity Not on file Sexual Orientation Not on file documented as of this encounter Progress Notes * Valentina Moore MD - 07/26/2016 10:00 AM EDT Images from the original note were not included. Subjective: ?? Antonia Jennings is a 45 y.o. female who is referred by Ingrid Delacruz NP for cervical dysplasia in the setting of breast cancer. Her history is as follows: Had LEEP in [place] in 12/2015 - confirmed DANTE 2 with negative margins. No ECC done at that time. Has not had any follow-up yet. She saw Ingrid Delacruz NP in the oncology division recently, who recommended that she have a mat inspector here at [facility] to make sure she is treated and [...] no known family history of ovarian cancer. ?? Gynecologic History: LMP - prior to breast cancer treatment Menses - none Paps - as in HPI ?? Past Medical History: Diagnosis Date ??? Bilateral breast cancer ? dx at age 34, 37 ??? Esotropia 02/26/2013 ?? Past Surgical History: Procedure Laterality Date ??? PRO ENDOSCOPIC US EXAM, ESOPH ?? 05/30/2011 ?? UPPER EUS- ENDOSCOPIC ULTRASOUND performed by CHUCHO ZAPATA at [facility] ??? PRO UPPER GI ENDOSCOPY, DIAGNOSTIC ?? 07/01/2013 ?? EGD, UPPER GI ENDOSCOPY performed by Tali Kamara MD at [facility] ?? Family History Problem Relation Age of Onset ??? Thyroid Disease Mother ? Cataracts Mother ? Heart Disease Father ? Thyroid Disease Father ? Breast Cancer Sister 38 ??? Strabismus Maternal Grandmother ? Retinal Detachment Neg Hx ? Macular Degeneration Neg Hx ? Hypertension Neg Hx ? Glaucoma Neg Hx ? Diabetes Neg Hx ? Social History ?? Social History ??? Marital status: Legal Separation ? Spouse name: N/A ??? Number of children: N/A ??? Years of education: N/A ?? Occupational History ??? Not on file. ?? Social History Main Topics ??? Smoking status: Never Smoker ??? Smokeless tobacco: Never Used ??? Alcohol use No ??? Drug use: No ??? Sexual activity: Not on file ? Comment: Deferred ?? Other Topics Concern ??? Not on file ?? 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 Review of Systems Pertinent items are noted in HPI. ? Objective: ?? There were no vitals taken for this [...] no masses noted Uterus: normal single, nontender ? Assessment: ?? Ms. Jennings is a 45 yo female treated for high grade cervical dysplasia in 12/2015. Here for follow-up. ? Plan/Recommendations: ? Pap cytology sent today. If NILM, will repeat pap and HPV testing in 6 months, when we will schedule her for a routine annual computer tester visit. Will get in touch regarding results as soon as they are available. ?? Valentina Moore MD documented in this encounter Plan of Treatment Not on file documented as of this encounter Visit Diagnoses Diagnosis Cervical dysplasia, moderate Moderate dysplasia of cervix documented in this encounter Care Teams Boating Safety Officer Relationship Specialty Start Date End Date Marlon Levine MD [address] [place] [address] PCP - General 06/20/12 documented as of this encounter
--- OUTSIDE RECORDS SUMMARY | 2023-11-09 16:22 | XMS_ITS | Encounter Summary ---
Author Organization [facility] [place] [address] Care Team Providers Care Employment Program Representative Name Role Phone Marlon Levine MD Primary Care Provider + [phone] Encounter Details Date Type Department Care Team (Late st Contact Info) Description 07/01/2013 Orders [place] [address] Tari Chen MD [facility] [place] [address] Social History Tobacco Use Types Packs/Day Years Used Date Smoking Tobacco: Never Smokeless Tobacco: Never Alcohol Use Standard Drinks/Week Comments No 0 (1 standard drink = 0.6 oz pur e alcohol) Sex and Gender Information Value Date Recorded Sex Assigned at Not on file Gender Identity Not on file Sexual Orientation Not on file documented as of this encounter Plan of Treatment Not on file documented as of this encounter Visit Diagnoses Not on filedocumented in this encounter Care Teams Employment Program Representative Relationship Specialty Start Date End Date Marlon Levine MD [address] [place] [address] PCP - General 06/20/12 documented as of this encounter
--- OUTSIDE RECORDS SUMMARY | 2023-11-09 16:22 | XMS_ITS | Encounter Summary ---
Author Organization Count Includes [facility] Address [facility] [place] [address] Care Team Providers Care Joint Sealer Name Role Phone Marlon Levine MD Primary Care Provider [phone] Encounter Details Date Type Department Care Team (Latest Contact Info) Description 06/13/2017 - 06/13/2017 11:59 PM EDT Hospital Encounter [place] [phone] Ingrid Delacruz, MUSHT[employer] [address] [place] [address] Discharge Disposition: Home Social History Tobacco Use [...] Sig Dispensed Refills Start Date End Date cholecalciferol, Vitamin D3, 1,000 unit Capsule Take 2,000 Units by mouth daily. CYANOCOBALAMIN, VITAMIN B-12, (VITAMIN B-12 ORAL) Take 1 tablet by mouth daily. UNABLE TO FIND Take 100 mg by mouth daily. Vitamin B 2 - 2 tabs in the AM ibuprofen (ADVIL;MOTRIN) 800 mg tablet Take 1 tablet by mouth as needed. Reported on 05/27/2016 acetaminophen (TYLENOL) 325 mg tablet Take 650 mg by mouth every 6 hours as needed. Reported on 05/27/2016 documented as of this encounter Plan of Treatment Not on file documented as of this encounter Procedures Procedure Name Priority Date/Time Associated Diagnosis Comments FILM LIBRARY STORAGE ONLY NUCLEAR MEDICINE Routine 06/13/2017 12:00 AM EDT documented in this encounter Results * Film Library- Storage Only nuclear medicine (06/13/2017 12:00 AM EDT) Narrative RAD - 06/14/2017 10:54 AM EDT This exam is for storage only and is auto-finalizing. Ingrid Delacruz APRN IMG FILM LIBRARY ORD ERABLES Performing Organization Address City/State/[facility] Co de Phone Number [place], [place] documented in this encounter Visit Diagnoses Not on filedocumented in this encounter Care Teams Joint Sealer Relationship Specialty Start Date End Date Marlon Levine MD [address] [place] [address] PCP - General 06/20/12 documented as of this encounter
--- OUTSIDE RECORDS SUMMARY | 2023-11-09 16:22 | XMS_ITS | Encounter Summary ---
Author Organization [facility] [place] [address] Care Team Providers Care Machine Repairer Maintenance Name Role Phone Marlon Levine MD Primary Care Provider [phone] Encounter Details Date Type Department Care Team (Late st Contact Info) Description 05/07/2014 Notes [place] [address] Tania Hassan, RN Social History Tobacco Use Types Packs/Day [...] on filedocumented in this encounter Care Teams Machine Repairer Maintenance Relationship Specialty Start Date End Date Marlon Levine MD [address] [place] [address] PCP - General 06/20/12 documented as of this encounter
--- OUTSIDE RECORDS SUMMARY | 2023-11-09 16:22 | XMS_ITS | Encounter Summary ---
Author Organization [facility] [place] [address] Care Team Providers Care Aerospace Physiological Technician Name Role Phone Marlon Levine MD Primary Care Provider + [phone] Encounter Details Date Type Department Care Team (Late st Contact Info) Description 09/02/2016 Telephone Dermatology at [facility] [address] [place] [address] Kenrick Chen MD [address] [facility] [place] [address] Social History Tobacco Use Types Packs/Day Years [...] encounter Miscellaneous Notes * Telephone Encounter - Kary Eric LPN - 09/02/2016 3:51 PM EDT Spoke with patient regarding pathology. She had no further questions at this time. * Telephone Encounter - Kary Eric LPN - 09/02/2016 3:48 PM EDT ----- Message from Kenrick Chen MD sent at 09/01/2016 7:58 PM EDT ----- [id number] Skin, right tip of nose, shave biopsy: Molluscum contagiosum. Molluscum Contagiosum, Nose Viral infection. Shave biopsy should have treated this. No further treatment necessary. documented in this encounter Plan of Treatment Not on file documented as of this encounter Visit Diagnoses Not on filedocumented in this encounter Care Teams Aerospace Physiological Technician Relationship Specialty Start Date End Date Marlon Levine MD [address] [place] [address] PCP - General 06/20/12 documented as of this encounter
--- OUTSIDE RECORDS SUMMARY | 2023-11-09 16:22 | XMS_ITS | Encounter Summary ---
Author Organization [facility] [place] [address] Care Team Providers Care Emergency Response Coordinator Name Role Phone Marlon Levine MD Primary Care Provider + [phone] Encounter Details Date Type Department Care Team (Late Contact Info) Description 03/17/2014 Telephone Hematology [place] [phone] Ronda Cruz, MS [facility] DR OBSTETRICS & [place] [address] Social History Tobacco Use Types Packs/Day Years [...] encounter Miscellaneous Notes * Telephone Encounter - Ronda Cruz MS - 03/17/2014 12:15 PM EST I spoke with Antonia on 03/17/2014. Antonia was seen by the Familial Cancer Program on 03/07/2014 in [facility]. She had previously had negative BRCA1/2 testing in 2005, but it did not seem as though she had the ANGELA part of the testing. She returned on 03/07 to have ANGELA done. I had received notification from [employer] that she actually did indeed have BARTtesting done back in late 2005. It is unclear why we were not aware of this result, but in any event, it does not need to be repeated. At this point, there is no other genetic testing that we would recommend for Antonia. Her sister is getting re-evaluated in early 2104 (she has not yet had ANGELA done). If her sister is found to be positive, we asked that Antonia get back in touch with us just so we can go through those results with her. Otherwise, we recommended that Antonia check in from time to time with Dr. Beltran to see if there areany changes in the field of hereditary cancer genetics that may be pertinent to her situation. documented in this encounter Plan of Treatment Not on file documented as of this encounter Visit Diagnoses Not on filedocumented in this encounter Care Teams Emergency Response Coordinator Relationship Specialty Start Date End Date Marlon Levine MD [address] [place] [address] PCP - General 06/20/12 documented as of this encounter
--- OUTSIDE RECORDS SUMMARY | 2023-11-09 16:22 | XMS_ITS | Encounter Summary ---
Author Organization Formerly [facility] [place] [address] Care Team Providers Care Neurourologist Name Role Phone Marlon Levine MD Primary Care Provider + [phone] Encounter Details Date Type Department Care Team (Late st Contact Info) Description 07/03/2013 [place] [phone] Elena Graham RN Social History Tobacco Use Types Packs/Day [...] encounter Miscellaneous Notes * Telephone Encounter - Elena Peng RN - 07/03/2013 4:26 PM EDT Antonia called looking for her biopsy results as well as her Ct results. Will review with Dr Chen. documented in this encounter Plan of Treatment Not on file documented as of this encounter Visit Diagnoses Not on filedocumented in this encounter Care Teams Neurourologist Relationship Specialty Start Date End Date Marlon Levine MD [address] [place] [address] PCP - General 06/20/12 documented as of this encounter
--- OUTSIDE RECORDS SUMMARY | 2023-11-09 16:22 | XMS_ITS | Encounter Summary ---
Author Organization [facility] [place] [address] Care Team Providers Care Underground Foreman Name Role Phone Marlon Levine MD Primary Care Provider [phone] Reason for Visit * Reason Onset Date Comments Results 08/25/2016 Encounter Details Date Type Department Care Team (Late st Contact Info) Description 08/25/2016 Telephone Obstetrics [place] [address] Valentina Moore MD [facility] DR OBSTETRICS [place] [address] Results Social History Tobacco Use Types Packs/Day [...] Telephone Encounter - Valentina Moore MD - 08/25/2016 1:30 PM EDT I let Antonia know that her endocervical sampling was normal . Rec pap in 6 months. She is in agreement. documented in this encounter Plan of Treatment Not on file documented as of this encounter Visit Diagnoses Not on filedocumented in this encounter Care Teams Underground Foreman Relationship Specialty Start Date End Date Marlon Levine MD [address] [place] [address] PCP - General 06/20/12 documented as of this encounter
--- OUTSIDE RECORDS SUMMARY | 2023-11-09 16:22 | XMS_ITS | Encounter Summary ---
Author Organization [facility] Address [facility] [place] [address] Care Team Providers Care Program Manager Rn Name Role Phone Marlon Levine MD Primary Care Provider [phone] Reason for Referral * Consultation (Routine) - Closed Specialty Diagnoses / Procedures Referred By Mateo sims Referred To Contact Hematology and Oncology Diagnoses Bilateral breast cancer History of breast cancer, family history of breast cancer Procedures Consult and treat John Beltran MD [facility] [place] [address] Stj Hem Onc Infusion [address] [place] [id number] Referral ID Status Reason Start Date Expiration Date V isits Requested Visits Authorized [id number] Closed Consult, Test & Treat 11/22/2013 05/21/2014 1 1 Reason for Visit * Reason Comments Breast Cancer Encounter Details Date Type Department Care Team (Late st Contact Info) Description 11/22/2013 3:30 PM EDT Follow-Up Hematology Oncology at [address] [phone] John Beltran MD [facility] [place] [address] Bilateral breast cancer (Primary Dx) Discharge Disposition: Home Social History Tobacco Use [...] Sign Reading Time Taken Comments Blood Pressure 134/90 11/22/2013 3:28 PM EDT Pulse 91 11/22/2013 3:28 PM EDT Temperature 37.1 ??C (98.8 ??F) 11/22/2013 3:28 PM ED T Respiratory Rate 16 11/22/2013 3:28 PM EDT Oxygen Saturation 99% 11/22/2013 3:28 PM EDT Inhaled Oxygen Concentration - - Weight 66.7 kg (147 lb) 11/22/2013 3:28 PM EDT Height 175.3 cm (5' 9.02) 11/22/2013 3:28 PM ED T Body Mass Index 21.7 11/22/2013 3:28 PM EDT documented in this encounter Progress Notes * John Beltran MD - 11/22/2013 3:15 PM EDT Subjective: Patient ID: Antonia Jeninngs is a 43 y.o. female. Problem List: 1. Cancer of the left breast, T2, N0, M0. A. Dx'd 01/29, s/p lumpectomy and ALND. Path-2.5-cm infiltrating ductal carcinoma, SBR score of 8. Final margins of resection were negative. Ten LNs were seen, all negative. ER/MI negative. HER2/cynthia negative. B. Four cycles of [...] There was no ALI or perineural invasion. ER/MI negative. HER2/cynthia negative by FISH. B. In [...] underwent screening for BRCA-1 and 2, negative. 5. Pancreatitis 05/08 6. History of [...] reconstruction. On presentation today, she feels well. She has more weight. She would like to maintain where she isnow. This has been primarily through dietary change. Her energy level is good. No areas of pain. She has noted some changes in the reconstructed breasts since she has lost the weight and would like this checked. She has a sister with stage IV breast cancer. She has another sister who had a breast bx which showed atypical ductal hyperplasia. She went ahead with prophylactic mastectomy and oophorectomy. Her sister's physicians have apparently discussed prophylactic bilateral mastectomy and oophorectomy and the patient wonders whether she should be thinking about oophorectomy although is not anxious to undergo any further procedures. Both the patient and her sister have had BRCA testing and both are negative. There is a third unaffected sister as well. Review of Systems Constitutional: Negative. HENT: Negative. Eyes: Negative. Respiratory: Negative. Cardiovascular: Negative. Gastrointestinal: Negative. Genitourinary: Negative. Musculoskeletal: Negative. Skin: Negative. Neurological: Negative. Hematological: Negative. Psychiatric/Behavioral: Negative. Objective: Physical Exam Vitals reviewed. Constitutional: She is oriented to person, place, and time. She appears well- developed and well-nourished. No distress. HENT: Head: Normocephalic and atraumatic. Mouth/Throat: Oropharynx is clear and moist. No oropharyngeal exudate. Eyes: EOM are normal. Pupils are equal, round, and reactive to light. No scleral icterus. Neck: Normal range of motion. Neck supple. Cardiovascular: Normal rate, regular rhythm and normal heart sounds. Exam reveals no gallop and no friction rub. No murmur heard. Pulmonary/Chest: Effort normal and breath sounds normal. No respiratory distress. She has no wheezes. She has no rales. Abdominal: Soft. Bowel sounds are normal. She exhibits no distension and no mass. There is no hepatosplenomegaly. There is no tenderness. There is no guarding. Genitourinary: Breast exam: She has mild fullness in the upper outer quadrant of each breast which is diffuse and symmetric and felt likely to be related to the reconstruction. No discrete masses noted. Musculoskeletal: Normal range of motion. She exhibits no edema and no tenderness. Lymphadenopathy: She has no cervical adenopathy. She has no axillary adenopathy. Right: No supraclavicular adenopathy present. Left: No supraclavicular adenopathy present. Neurological: She is alert and oriented to person, place, and time. No cranial nerve deficit. Coordination normal. Skin: Skin is warm and dry. No rash noted. No erythema. Psychiatric: She has a normal mood and affect. Her behavior is normal. Labs: Not performed Assessment and Plan: Ms. Lance is a 43 year-old female with a history of bilateral breast cancer as above. It has been over five years since completion of adjuvant chemotherapy. Clinically, she appears to be doing well without evidence of disease recurrence. No further intervention is planned at this time. We will planto see her back in 6 months, sooner if needed. We again discussed today her personal and family history of breast cancer. As noted above, she has a sister who lives in [place] and unfortunately has stage IV breast cancer. Both the patient and this sister have had BRCA testing and that is negative. Another sister recently had a breast bx showingatypical hyperplasia. There was not evidence of DCIS. She underwent bilateral prophylactic mastectomy and oophorectomy. The patient says that they were glad it was done but I'm not sure what that means in terms of the pathology results. This has raised the question for the pt of whether she should be thinking about further intervention such as oophorectomy. We do not have a finding in her case tosuggest an increased risk of ovarian cancer such as a BRCA mutation and the patient is not anxious for another procedure but says she would do what she needs to do. We could consider periodic transvaginal US. However, I think it would make sense for her to be seen by the [facility]amilial Cancer Program again to see if there is other testing that would be recommended. I had made a referral but she did notkeep that appt. We discussed that this counseling may helpful in making the decision about surgery and she would therefore like to reschedule that. documented in this encounter Plan of Treatment Scheduled Referrals Name Type Priority Associated Diagnoses Orde r Schedule Referral to Familial Cancer Outpatient Referral Routine Bilateral breast cancer Ordered: 11/22/2013 documented as of this encounter Visit Diagnoses Diagnosis Bilateral breast cancer- Primary documented in this encounter Care Teams Program Manager Rn Relationship Specialty Start Date End Date Marlon Levine MD [address] [place] [id number] PCP - General 06/20/12 documented as of this encounter
--- OUTSIDE RECORDS SUMMARY | 2023-11-09 16:22 | XMS_ITS | Encounter Summary ---
Author Organization Formerly [facility] [place] [address] Care Team Providers Care Orthotic And Prosthetic Technician Name Role Phone Marlon Levine MD Primary Care Provider [phone] Reason for Visit * Reason Comments Skin Lesion Encounter Details Date Type Department Care Team (Late st Contact Info) Description 08/31/2016 8:45 AM EDT Office Visit Dermatology at [facility] [address] [place] [address] Kenrick Chen MD [address] [facility] [place] [address] Neoplasm of uncertain behavior of skin (Primary Dx) Social History Tobacco Use Types Packs/Day Years Used Date Smoking Tobacco: Never Smokeless Tobacco: Never Alcohol Use Standard Drinks/Week Comments No 0 (1 standard drink = 0.6 oz pur e alcohol) Sex and Gender Information Value Date Recorded Sex Assigned at Not on file Gender Identity Not on file Sexual Orientation Not on file documented as of this encounter Progress Notes * Kenrick Chen MD - 09/01/2016 7:58 PM EDT [id number] Skin, right tip of nose, shave biopsy: Molluscum contagiosum. Molluscum Contagiosum, Nose Viral infection. Shave biopsy should have treated this. No further treatment necessary. * Kenrick Chen MD - 08/31/2016 8:45 AM EDT Images from the original note were not included. DEPARTMENT DERMATOLOGY AT [facility] Dermatology At [facility] [address] [facility] [phone] NEW PATIENT Chief Complaint: Lesion on nose History of Present Illness Antonia Jennings is a 46 y.o. female. Complains of a lesion on the tip of the nose that was first identified 3 months. It bleeds spontaneously. No symptoms. Treated with warm compresses only. Never been biopsied. ? Denies Skin Cancer History No personal or family history of skin cancer. Allergies Drug: Azithromycin, Chlorhexedine Other: Adhesive Medications ??? gabapentin (NEURONTIN) 300 mg Capsule ??? CYANOCOBALAMIN, VITAMIN B-12, (VITAMIN B-12 ORAL) ??? UNABLE TO FIND ??? ibuprofen (ADVIL;MOTRIN) 800 mg tablet ??? acetaminophen (TYLENOL) 325 mg tablet Review of Systems Significant for no fevers, chills, night sweats, or fatigue and no other pertinent and acute changes in constitutional, other skin, HEENT, gastrointestinal, respiratory, cardiovascular, genitourinary, lymphatic, musculoskeletal, endocrine, neurologic, psychiatric, allergy/immunology systems upon specific queries. 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 Well developed, well-nourished in no apparent distress, alert and oriented to time, person, place and situation. Skin Type: II. Focused examination of the nose significant for the following: ?? 3 mm eroded and serous crusted papule right nasal tip. Images Photo(s) taken by Alana Chen MD. with patient's verbal permission for use for clinical and education purposes. Figure A Procedure Shave Procedure Discussed with patient diagnostic options, including the risks and benefits of empiric treatment orbiopsy, including but not limited to recurrence, cosmesis (scar, dyspigmentation, scar spread,keloid), pain, keloid/hypertrophic scar, bleeding, infection. Patient verbally understands and elects biopsy. Allergies See above or Breast Feeding Denies Defibrillator or Pacemaker Denies Time Out Performed: Full Name, , and site confirmed with patient Procedure (s) A. Shave Location (s) A. Right tip of nose Pre-Operative Diagnosis A. SCC v Hypertrophic AK v folliculitis v PG Anesthesia: 1% lidocaine+1:100,000 epinephrine Sterile Prep Alcohol Lesion biopsied with shave technique using lj blade. Hemostasis achieved with Drysol. <1mlblood loss. No complications. Specimen(s): Placed in formalin and sent to Pathology for histologic examination. Post-op care: Vaseline Post-operative pain: 0/10 Assessment and Plan Neoplasm of Uncertain Behavior, Right Nasal Tip Wound care instructions provided. Wound care: Vaseline or antiobiotic ointment 1-2 x per day and cover with bandaid until healed. May shower and let soapy water over top. Vitamin E oil or Mederma massaged into wound 1-3 x per day for several months to minimize scar after wound healed (limited efficacy data to support) Patient gives permission to leave results on voicemail at . Patient Counseled [Skin Cancer] Counseled: sun protection, the ABCDEs of melanoma/NMSC. Answered all questions. Handouts on how to do a self-exam, skin cancers and sun protection given to the patient. Follow-up: based on pathology results. Note initiated by HUSEYIN BURNETT LPN has performed the documentation for this encounter in the presence of and acting as a scribe for Dr. Chen. I performed the above scribed service and agree with the accuracy of the documentation in this encounter. Kenrick Chen MD [facility] Section of Dermatology [facility] documented in this encounter Plan of Treatment Not on file documented as of this encounter Procedures Procedure Name Priority Date/Time Associated Diagnosis Comments SPECIMEN TO PATHOLOGY (NON-OR) Routine 08/31/2016 10:38 AM EDT Neoplasm of uncertain behavior of skin SURGICAL PATHOLOGY REPORT Routine 08/31/2016 10:38 AM EDT documented in this encounter Results * Surgical Pathology Report (08/31/2016 10:38 AM EDT) Final Diagnosis [id number] ?Location: [facility] The signing pathologist has (i) examined the relevant preparation(s) for the specimen(s) and (ii) rendered or confirmed the diagnosis(es). . ?Surgical Pathology DIAGNOSIS Skin, right tip of nose, shave biopsy: Molluscum contagiosum. Electronically signed by: ??Sheyla Ordonez MD Verified: ??09/01/2016 ?Dermatopatholo gist CLINICAL INFORMATION Specimen Submitted: A - Skin, Right tip of nose, Shave biopsy (1) Clinical History: 3 mm eroded and serous crusted papule Clinical Diagnosis: SCC versus hypertrophic AK versus folliculitis versus PG SPECIMEN PROCESSING A - Labeled/Fixative : Patient demographics, formalin. Quantity/Size: Single, 0.4 x 0.4 x 0.1 cm. Tissue Description: Shave of centrally crusted, yellow-tomas skin. Sections/Process ing: Bisected. (T1) ??ejr 09/01/2016 12:11 PM EDT [facility] SPECIMEN FROM SKIN / Unknown 08/31/2016 10:38 AM EDT 08/31/2016 10:38 AM EDT Kenrick Chen MD PATHOLOGY/CYTOLOGY O RDERABLES [facility] [place] [address] * Specimen to Pathology (NON-OR) (08/31/2016 10:38 AM EDT) AP Specimen 08/31/2016 10:3 8 AM EDT 08/31/2016 12:47 PM EDT Narrative [facility] - 08/31/2016 12:48 PM EDT Specimen requisition ordered. ??Separate Pathology report to follow Resulting Agency Comment Spec In Lab Kenrick Chen MD PATHOLOGY/CYTOLOGY O BARTOLOME [facility] [place] [address] documented in this encounter Visit Diagnoses Diagnosis Neoplasm of uncertain behavior of skin- Primary documented in this encounter Care Teams Orthotic And Prosthetic Technician Relationship Specialty Start Date End Date Marlon Levine MD [address] [place] [id number] PCP - General 06/20/12 documented as of this encounter
--- OUTSIDE RECORDS SUMMARY | 2023-11-09 16:22 | XMS_ITS | Clinical Summary ---
Author Organization [facility] Address [facility] [place] [address] Care Team Providers Care Allied Health Professional Name Role Phone Marlon Levine MD Primary Care Provider + [phone] Allergies Active Allergy Reactions Criticality Noted Date Comments Adhesive Tape Rash Medium Azithromycin Hives Medium Chlorhexidine Gluconate Rash Medium Medications Medication Sig Dispensed Refills Start Date End Date Status ibuprofen (ADVIL;MOTRIN) 800 mg tablet Take 1 tablet by mouth as needed. Reported on 05/27/2016 Active acetaminophen (TYLENOL) 325 mg tablet Take 650 mg by mouth every 6 hours as needed. Reported on 05/27/2016 Active UNABLE TO FIND Take 100 mg by mouth daily. Vitamin B 2 - 2 tabs in the AM Active CYANOCOBALAMIN, VITAMIN B-12, (VITAMIN B-12 ORAL) Take 1 tablet by mouth daily. Active cholecalciferol, Vitamin D3, 1,000 unit Capsule Take 2,000 Units by mouth daily. Active docusate sodium (COLACE) 100 mg Capsule Take 100 mg by mouth 2 times daily. Active magnesium citrate Solution Take by mouth. Active Active Problems Problem Noted Date Diagnosed Date Cervical dysplasia 07/29/2016 Overview (07/29/2016): Treated with LEEP in 2015. 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 Neurodermatitis 08/17/2011 Pleural effusion 04/30/2011 Pancreatitis 04/30/2011 Breast cancer 04/15/2011 Immunizations Name Administration Dates Next Due Influenza Vaccine, Whole 01/22/2009,02/21/2006 Pneumococcal Polysaccharide (Pneumovax 23) 01/22 Family History Medical History Relation Comments Heart Disease Father Thyroid Disease Father Strabismus Maternal Grandmother Cataracts Mother Thyroid Disease Mother Breast Cancer Sister Diabetes Neg Hx Glaucoma Neg Hx Hypertension Neg Hx Macular Degeneration Neg Hx Retinal Detachment Neg Hx Relation Status Comments Father Maternal Grandmother Mother Sister Social History Tobacco Use Types Packs/Day Years Used Date Smoking Tobacco: Never Smokeless Tobacco: Never Alcohol Use Standard Drinks/Week Comments No 0 (1 standard drink = 0.6 oz pur e alcohol) Sex and Gender Information Value Date Recorded Sex Assigned at Not on file Gender Identity Not on file Sexual Orientation Not on file Last Filed Vital Signs Vital Sign Reading [...] Mass Index 26.55 07/26/2018 8:52 AM EDT Plan of Treatment Health Maintenance Due Date Last Done Comments CT Colonography 1971 Colonoscopy 1971 Colorectal Cancer Screening 1971 FIT DNA 1971 FIT 1971 Sigmoidoscopy (10 year) with FIT yearly 1971 Sigmoidoscopy 1971 HIV screen 08/29/1989 Hepatitis C Screening 08/29/1989 Hepatitis B vaccine (0-59 yr s) (1) 08/29/1990 Tdap adult 08/29/1990 Tetanus vaccine 08/29/1990 Breast Cancer Share Decision Needed 2011 Breast Cancer screening 2011 HPV test 07/26/2021 07/26/2016 PAP Smear 07/26/2021 07/26/2016 Zoster vaccine (1 of 2) 08/29/2021 Covid-19 Vaccine (1 - 2022-2 4 season) 2022 Influenza (Flu) vaccine (1 o f 1 - Influenza standard series) 11/26/2023 01/22/2009, 02/21/2006 Diabetes Screening (HgbA1C o r Glucose) Discontinued 06/13/2013, 04/29/2011, 04/28/2011, Additional history exists Procedures Procedure Name Priority Date/Time Associated Diagnosis Comments HPV Routine 07/26/2016 11:55 AM EDT OR SCRUB TECH CYTOLOGY FINAL REPORT Routine 07/26/2016 11:55 AM EDT GLUCOSE STAT 06/13/2013 7:30 PM EDT from Last 3 Months or Most Recently Relevant to Health Maintenance Results * (ABNORMAL) HPV (07/26/2016 11:55 AM EDT) HPV16 NEGATIVE NEGATIVE [facility] HPV 18 NEGATIVE NEGATIVE [facility] HPV Other HR POSITIVE(A) NEGATIVE [facility] HPV Interpretation See Comment [facility] Comment: POSITIVE for high-risk HPV* (High risk type other than types 16 or 18): * Testing positive for high risk HPV means that the specimen is positive for at least one of the following 14 types tested: ??types 16, 18, 31, 33, 35, 39, 45, 51, 52, 56, 58, 59, 66, and 68. [facility] HPV test Specimen: HPV Testing - Cytology Liquid Based Prep Cervical swab (specimen) 07/26/2016 11:55 AM EDT 08/10/2016 9:30 AM EDT Narrative Resulting Agency Comment Spec In Lab Valentina Moore MD PATHOLOGY/CYTOLOGY O RDERABLES [facility] [place] [address] * Assistant Librarian Cytology Final Report (07/26/2016 11:55 AM EDT) Assistant Librarian Cytology Final Report [id number] ?Location: 5L The signing pathologist has (i) examined the relevant preparation(s) for the specimen(s) and (ii) rendered or confirmed the diagnosis(es). . ? Addendum ADDENDUM DISCUSSION HPV16 (Result) ?Negative HPV18 (Result) ?Negative HPVOHR (Result) ? Positive * HPV (Interpretation) ?See Below HPV (Interpretation) Text: POSITIVE for high-risk HPV* (High risk type other than types 16 or 18): *Testing positive for high risk HPV means that the specimen is positive for at least one of the following 14 types tested: types 16, 18, 31, 33, 35, 39, 45, 51, 52, 56, 58, 59, 66, and 68. [facility] HPV test Specimen: HPV Testing - Cytology Liquid Based Prep The [facility] ? HPV test was validated, performed and results reported through the [facility] ([facility]) at [facility]. ? - John Jolley, PhD, [facility], Director-[facility] _ Electronically signed by: ??Lab Review, Molecular Genetics Verified: ??08/12/2016 ? Assistant Librarian Final DIAGNOSIS Epithelial Cell Abnormality Atypical Squamous Cells of Undetermined Significance (ASC-US). For consensus guidelines for the management of cervical cancer screening test results, please see: ?? http://www.asccp .org/guidelines . Electronically signed by: ??Pardeep CROSS, Yaya Warner Verified: ??08/09/2016 ?Cytopathologis t HPV RESULTS HPV test is ordered, result pending. STATEMENT OF ADEQUACY Specimen submitted is satisfactory. Endocervical component present. CLINICAL INFORMATION HPV Option: ?Reflex HPV Preparation: ? Liquid based Pap Specimen Source: ? Cervical/Endocer vical LMP: ? n/a Hormones?: ? No Hysterectomy?: ? No ?: ? No ?: ? No I.U.D.?: ? No Pelvic Radiation: ?No Prior OR SCRUB TECH Therapy?: ?[facility] Biopsy . CLINICAL INFORMATION Hist Abnl Pap/Biopsy?: ?? Yes, Pap after Cryo, LEEP Hist of HPV Vaccine?: ?No Hist of Smoking?: ?No Hist of PADMINI exposure?: ?? No ICD Diagnosis: ? Z91.89 Screening Pap, History Clinical High Risk Clinical Data, Significant Therapy and Clinical Impression ?? : ?_ This Pap Test has been evaluated with the assistance of the ZedmoPrep Pap Test Imaging System. Note: The Pap test is a screening test for cervical cancer with an inherent false-negative rate dependent upon several variables. ??For further information please contact the [facility] Laboratory. Reference: ??Roger LADD. ??Vice President Compliance of Pap Smear Results. ??In: ??Aureliano BS, [place] HH, ed. ??The Pap Smear. ??[place]: ??Edilberto, 2002: ??71-77. [facility] 07/26/2016 11:5 5 AM EDT Valentina Moore MD PATHOLOGY/CYTOLOGY O RDERABLES [facility] [place] [address] * Glucose, random (06/13/2013 7:30 PM EDT) Glucose 74 60 - 199 mg/dL [facility] Comment:Diabetes: >=200 mg/d L plus symptoms Blood specimen (specimen) 06/13/2013 7:30 PM EDT 06/13/2013 7:38 PM EDT Narrative Resulting Agency Comment Spec In Lab Wicho Pizano MD CHEMISTRY ORDERABLES [facility] from Last 3 Months or Most Recently Relevant to Health Maintenance Advance Directives * Full Code (Latest Code Status on File) Date Activated Date Inactivated Comments 04/27/2011 6:02 PM 04/30/2011 5:15 PM Question Answer Comments Order Status: Initial Order Does patient have decision m aking capacity? Yes, Order is based on Patients wishes. Care Teams Allied Health Professional Relationship Specialty Start Date End Date Marlon Levine MD [address] [place] [address] PCP - General 06/20/12
--- OUTSIDE RECORDS SUMMARY | 2023-11-09 16:23 | XMS_ITS | Encounter Summary ---
Author Organization [facility] [place] [address] Care Team Providers Care Motor Home Electrical Foreman Name Role Phone Marlon Levine MD Primary Care Provider [phone] Encounter Details Date Type Department Care Team (Late st Contact Info) Description 08/06/2012 [place] [address] Erick Marx MD [facility] [place] [address] Social History Tobacco Use Types Packs/Day Years Used Date Smoking Tobacco: Never Alcohol Use Standard Drinks/Week Comments [...] on filedocumented in this encounter Care Teams Motor Home Electrical Foreman Relationship Specialty Start Date End Date Marlon Levine MD [address] [place] [address] PCP - General 06/20/12 documented as of this encounter
--- OUTSIDE RECORDS SUMMARY | 2023-11-09 16:23 | XMS_ITS | Encounter Summary ---
Author Organization [facility] [place] [address] Care Team Providers Care Finishing Technician Name Role Phone Marlon Levine MD Primary Care Provider + [phone] Reason for Visit * Reason Onset Date Comments Follow-up 11/29/2012 Encounter Details Date Type Department Care Team (Late st Contact Info) Description 11/29/2012 Telephone [place] [id number] Ana Lilia Soria APRN [facility] [place] [address] Follow-up Social History Tobacco Use Types Packs/Day Years [...] encounter Miscellaneous Notes * Telephone Encounter - Ana Lilia Soria APRN - 11/29/2012 8:18 AM EDT Antonia did call me back to say that she is comfortable with keeping an eye on her breast and callingme with Any changes . I have suggested that she see Plastic Surgery if she does want another opinion or further evaluation of this area. She will call me. documented in this encounter Plan of Treatment Not on file documented as of this encounter Visit Diagnoses Not on filedocumented in this encounter Care Teams Finishing Technician Relationship Specialty Start Date End Date Marlon Levine MD [address] [place] [address] PCP - General 06/20/12 documented as of this encounter
--- OUTSIDE RECORDS SUMMARY | 2023-11-09 16:23 | XMS_ITS | Encounter Summary ---
Author Organization [facility] Address [facility] [place] [address] Care Team Providers Care Bulk Loader Name Role Phone Marlon Levine MD Primary Care Provider [phone] Encounter Details Date Type Department Care Team (Latest Contact Info) Description 04/27/2011 3:49 PM EST - 04/30/2011 3:09 PM EST Hospital Encounter [address] [place] [id number] Deandre Tuttle MD [facility] [place] [address] Juvenal Lea MD [address] [place] [id number] Breast cancer Discharge Disposition: Home Social History Tobacco Use Types Packs/Day Years Used Date Smoking Tobacco: Never Sex and Gender Information Value Date Recorded Sex Assigned at Not on file Gender Identity Not on file Sexual Orientation Not on file documented as of this encounter Last Filed Vital Signs Vital Sign Reading Time Taken Comments Blood Pressure 167/106 04/30/2011 11:48 AM EST Shirley Araya MD aware Pulse 77 04/30/2011 11:48 AM EST Temperature 36.6 ??C (97.9 ??F) 04/30/2011 1 1:48 AM EST Respiratory Rate 18 04/30/2011 11:4 8 AM EST Oxygen Saturation 98% 04/30/2011 11: 48 AM EST Inhaled Oxygen Concentration - - Weight - - Height 177.8 cm (5' 10) 04/27/2011 6:2 2 PM EST Body Mass Index - - documented in this encounter Discharge Instructions * Patient Instructions* Reynaldo Apple 04/30/2011 1:32 PM EST You were hospitalized for: resolving pancreatitis and pleural effusions (fluid between your lungs and the chest wall). Call your doctor if you develop: fever, chills, chest pain, difficulty breathing, nausea, vomiting,abdominal pain, or any other concerning symptoms. Activity level: As tolerated. Diet: No restrictions, but increase the amount of intake slowly until you are sure you can toleratea normal diet again. Driving: As prior to admission. Shower/Bath: No restrictions Wound Care: n/a Follow up Appointments: Please call Dr. Levine [place] [facility] [place] Marshal Shen, Jayden, and Julius Medications: - If you still have RESIDUAL pains you can try ibuprofen or tylenol [id number]. Any new pain or worsening pain should prompt re-evaluation by a doctor. documented in this encounter Medications at Time of Discharge Medication Sig Dispensed Refills Start Date End Date acetaminophen (TYLENOL) 325 mg tablet Take 2 tablets by mouth every 6 hours as needed for Pain. 30 tablet 04/30/2011 09/20/2011 ibuprofen (ADVIL;MOTRIN) 600 mg tablet Take 1 tablet by mouth every 6 hours as needed for Pain. 30 tablet 04/30/2011 09/20/2011 documented as of this encounter Progress Notes * Constance Araya III, MD - 04/30/2011 3:14 PM EST Hospital Medicine - Attending Day of Discharge Documentation Discharge diagnosis Pancreatitis Pleural effusion Secondary Issues Active Non-Hospital Problems Diagnoses ??? Breast cancer I have personally seen and examined the patient and they are ready for discharge. I spent <30 minutes (Day of Discharge Code 22150) involved in the final examination of the patient, discussion of the hospital stay, instructions for continuing care to all relevant caregivers, and preparation of discharge records, prescriptions and referral forms. Plans Discharge to home Follow-up scheduled with PCP Please see the Discharge Summary for complete details of any medication changes and additional plans. * Juvenal Lea - 04/29/2011 11:20 AM EST Internal Medicine Admitted 04/27/2011 Progress Note Team Pager #[phone] ID: Antonia Lance is a 40 y.o. female, hx breast CA, now with recent resolved pancreatitis and large bilateral pleural effusions Last 24 ?? Attempt thora, unsuccessful ?? No PTX on f/u CXR ?? O2 requirement unchanged ?? Scheduled tylenol and ibuprofen Subjective ?? Feeling much better ?? Appetite returning, drinking clears w/o c/o ?? Not needing clerk manager ?? Still with pain around site of SC line ?? No appreciable abdominal pain this morning ?? No fevers ?? No SOB ?? No n/v/d ?? Prefers not reattempt thora ?? Ambulating, would like magallon out ?? ROS neg except as noted above Objective Last Value 24 Hour Range Temperature 36.2 ??C (97.2 ??F) Temp: [36.2 ??C (97.2 ??F)-37.1 ??C (98.8 ??F)] Heart Rate 93 Heart Rate: [71-103] Blood Pressure 166/87 mmHg BP: (149-221)/(87-108) Respiratory Rate 18 Resp: [17-18] SpO2 98 % SpO2: [96 %-98 %] Inputs & Outputs Weights Intake/Output Summary (Last 24 hours) at 04/29/11 1120 Last data filed at 04/29/11 0500 Gross per 24 hour Intake 180 ml Output 4650 ml Net -4470 ml Empty flowsheet group. On 4L O2 Gen: much improved. cheerful HEENT: mmm, eomi, anicteric CV: rr, s1s2, no r/m/g Pulm: coarse crackles, dullness Chest: no tenderness to palpation, SC c/d/i Abd: soft, nt, few bowel sounds Neuro: grossly intact Skin: no rashes Ext: no c/c/e Laboratory Recent Labs Basename 04/29/11 0700 04/28/11 0605 04/27/112049 ??? WBC 4.4 6.3 7.0 ??? HGB 11.3 11.0* 11.0* ??? PLATELET 232 215 211 Recent Labs Basename 04/29/11 0700 04/28/11 0605 04/27/112049 ??? NA 143 139 136 ??? K 3.6 3.3* 4.0 ??? CO2 33* 27 26 ??? CL 103 101 100 ??? BUN 3* 2* 3* ??? CREATININE 0.38* 0.30* 0.36* ??? CALCIUM 8.7 8.5 8.8 ??? MAGNESIUM -- -- 0.66* ??? PHOS -- -- 2.6 Medications ??? DISCONTD: DISPATCHER TOW TRUCK [place] ??? magnesium sulfate 2 g Intravenous Once ??? lidocaine 100 mg Subcutaneous Once ??? lidocaine ??? esomeprazole 40 mg Intravenous Daily ??? acetaminophen 650 mg Oral Q6H ??? ibuprofen 600 mg Oral Q6H ??? sodium chloride 0.9 % 5 mL Intravenous Q12H ??? enoxaparin 40 mg Subcutaneous Daily ??? senna-docusate 1-4 tablet Oral BID ??? dextrose 5% and sodium chloride 0.45% 100 mL/hr (04/28/112012) ??? DISCONTD: HYDROmorphone ??? DISCONTD: naloxone ??? DISCONTD: DISPATCHER TOW TRUCK [place] Microbiology ?? none Imaging / Procedures CXR - no PTX. Effusions still prominent Assessment & Plan 40 y/o female, previously healthy, with recent admission for pancreatitis, and unresolved pain. Overall much better. Will d/c magallon, attempt advance diet. D/c DISPATCHER TOW TRUCK. Hope can get rid of any need for IVaccess. Pancreatitis resolved. Still unclear cause - advancing diet - d/c IVF if can keep up with po - consider RUQ u/s Bilateral effusions - hold off on repeat thoracentesis. Pt with good uop. More active, and may be able to mobilize fluids on own. - O2 as needed Greatest source of pain from central line. Opioids cause undesired side effects. - scheduled APAP and ibuprofen - try to d/c SC FEN/PPX - diet as tolerated, advancing to full liquid this am, maybe further later - MIVF (for now) - f/u lytes - lovenox - encourage use of IS - d/c magallon Full code Attending Addendum: I have seen and examined the patient today. I discussed and reviewed this case with Dr. Johnson and agree with above overnight events, physical exam, labs, assessment and plan. 40 y/o woman transferred with non-resolving abdominal pain from pancreatitis (first episode-unclearetiology) despite no evidence of fluid collection or other intra-abdominal source of pain. Overall excellent clinical improvement last 48 hrs. Awake, alert, oriented x 3, with minimal tenderness on abdominal exam. Advance diet as tolerated Off narcotics. CT with bilateral effusions but no PE. Unsuccessful thoracentesis yesterday. Repeat CXR as outpatient to document improvement of bilateral effusions, but clinically afebrile without suspicious for exudative effusions. Monitor 02 need which should improve with mobilization and auto-diuresis. DC home 24-48 if tolerating diet Juvenal Lea * Juvenal Lea - 04/28/2011 8:16 AM EST Internal Medicine Admitted 04/27/2011 Progress Note Team Pager #[phone] ID: Antonia Lance is a 40 y.o. female, hx breast CA, now with recent resolved pancreatitis and large bilateral pleural effusions Last 24 ?? Admit medicine ?? CT chest showed no PE, but large bilat effusions seen ?? O2 requirement unchanged ?? 0.9 mg dilaudid DISPATCHER TOW TRUCK used overnight Subjective ?? Feeling less groggy this morning ?? Still with pain, more around site of SC line ?? No appreciable abdominal pain this morning ?? Able to drink a little tea last night without symptoms ?? No fevers ?? Little cough ?? No SOB ?? No n/v/d ?? ROS neg except as noted above Objective Last Value 24 Hour Range Temperature 36.9 ??C (98.4 ??F) Temp: [36.9 ??C (98.4 ??F)-37 ??C (98.6 ??F)] Heart Rate 96 Heart Rate: [88-106] Blood Pressure 157/89 mmHg BP: (155-163)/(89-104) Respiratory Rate 16 Resp: [16-19] SpO2 96 % SpO2: [92 %-98 %] Inputs & Outputs Weights Intake/Output Summary (Last 24 hours) at 04/28/11 0816 Last data filed at 04/28/11 0800 Gross per 24 hour Intake 0 ml Output 3225 ml Net -3225 ml Empty flowsheet group. On 4L O2 Gen: appears more peaceful. Fan still blowing on face. More interactive HEENT: mmm, eomi, anicteric CV: tachy, reg, s1s2, no r/m/g Pulm: coarse crackles heard laterally, continued shallow breaths Chest: no tenderness to palpation Abd: soft, nt, few bowel sounds Neuro: grossly intact Skin: no rashes Ext: no c/c/e Laboratory Recent Labs Basename 04/28/1160404/27/112049 ??? WBC 6.3 7.0 ??? HGB 11.0* 11.0* ??? PLATELET 215 211 Recent Labs Basename 04/28/1160404/27/112049 ??? NA 139 136 ??? K 3.3* 4.0 ??? CO2 27 26 ??? CL 101 100 ??? BUN 2* 3* ??? CREATININE 0.30* 0.36* ??? CALCIUM 8.5 8.8 ??? MAGNESIUM -- 0.66* ??? PHOS -- 2.6 LFT nl, alb 3.2 Lipase 19 CE neg Medications ??? sodium chloride 0.9 % 5 mL Intravenous Q12H ??? enoxaparin 40 mg Subcutaneous Daily ??? senna-docusate 1-4 tablet Oral BID ??? dextrose 5% and sodium chloride 0.45% 125 mL/hr (04/28/11 0400) ??? HYDROmorphone ??? naloxone ??? DISPATCHER TOW TRUCK [place] Microbiology ?? none Imaging / Procedures CT chest - no PE, large bilat effusions with associated extensive atelectasis. Airspace opacification in bilat R>L parenchyma Assessment & Plan 40 y/o female, previously healthy, with recent admission for pancreatitis, and unresolved pain Pancreatitis seems to have resolved. No LFT abnormalities, and pt with symptoms not c/w pancreatitis. Still unclear cause - cont hydration - po as tolerated, may need to explore other methods of nutrition - consider RUQ u/s - do not see need for abx at this time, but low threshold to resume - symptom management Hypoxia still prominent given abg yesterday (7.35/47/75). CT showing large bilateral effusions. Maybe caused by aggressive hydration and capillary leak from inflammatory state of recent pancreatitis(though no ascites, remarkably). Some airspace abnormalities noted on CT as well, and while consistent with pna, clinically doesn't appear as such, so will not start abx at this time. - thoracentesis - O2 as needed - hold on abx for now, low threshold to restart Greatest source of pain from central line. Opioids cause undesired side effects. Will try more NSAIDS and APAP today for pain control. - no need for central access at this time (tpn may be considered, but ppn may be sufficient and seeno reason pt would need this for any prolonged period of time. FEN/PPX - diet as tolerated - MIVF - check lytes, replace as needed (K, mag) - lovenox Full code Attending Addendum: I have seen and examined the patient today. I discussed and reviewed this case with Dr. Johnson and agree with above overnight events, physical exam, labs, assessment and plan. 40 y/o woman transferred with non-resolving abdominal pain from pancreatitis despite no evidence offluid collection Or other intra-abdominal source of pain. Improved alertness, with minimal tenderness on abdominal exam. Left arm pain and swelling. CT with bilateral effusions but no PE. Advance diet as tolerated Continue weaning down narcotics Consider LUE US r/o DVT Rest of plan as above Juvenal Lea documented in this encounter H&P Notes * Juvenal Lea - 04/27/2011 5:54 PM EST Inpatient - Admission Note History of Present Illness: 40 y/o male presents as transfer from [facility] for unresolving abd pain after pancreatitis. Pt originally presented 04/21, having had abd pain for 2 wks. Originally thought in nature, with neg pelvic w/u. Upon admission, found lipase 53k, and treated for pancreatitis. Pain control and IVFand antiemetics given. Pt very sensitive to narcotics, requiring reversal with narcan after apneic.[place] improved in coming days, with resolving lipase. Pain then moved to LUQ following placement of central line. CT scan and repeat showing no pseudocyst, inflammatory changes persisted. Treated withunasyn as did not seem to improve. Central line placed 04/24, and CXR after showed ? PNA and pt with low grade fever (but no white count, not hypoxic, not SOB, no cough), placed on levaquin briefly. Pt with continued pain, and nausea and headaches from opioids. She has been persistently tachy to low 100s, though reportedly no arrhythmia. Subjectively now, pt still with pain in anterior chest just below left breast, and also pain aroundsite of subclavian. Worsened with coughing and inspiration. Quite well controlled on pain meds right now. Pain meds make her very drowsy, along with nausea and headache. She has not had anything to eat in past week. Moved bowels once in past week. Review of Systems: Gen: poor appetite, little po, no f/c recently (though had earlier) HEENT: no URI sx CV: as above Pulm: as above, no cough, no sputum GI: as above : urine dark previously, no urinary complaints MSK: no myalgias/arthralgias Heme: no easy bleeding/bruising Neuro: no weakness/numbness Skin: no rashes Past Medical and Surgical History: Breast CA (left) and recurrence (right), s/p surgical excision () and chemoRT x2 - all nodes neg - ER/OK neg, Her2/cynthia neg - adjuvant CMF x6 cycles complete july 2008 - bilateral prophylactic mastectomy - no evidence of recurrence Headaches - respond to caffeine S/p BTL and reversal Prior To Admission Medications: No prescriptions prior to admission Allergies: Allergies Allergen Reactions ??? Azithromycin CIS - Hives, CIS - Hives, CIS - Hives ??? Chlorhexidine Gluconate CIS - Rash, CIS - Rash, CIS - Rash ??? 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 Influenza Whole 02/21/2006, 01/22/2009 ??? Pneumococcal Polyvalent 23 01/22/2009 Physical Exam: Last Set of Vitals and range of vitals over past 24 hours: Last value Range last 24 hrs Temperature Temp: 37 ??C (98.6 ??F) Temp: [37 ??C (98.6 ??F)] Heart Rate Heart Rate: 106 Heart Rate: [106] Blood Pressure BP: 163/96 mmHg BP: (163)/(96) Respiratory Rate Resp: 19 Resp: [19] SpO2 SpO2: 92 % SpO2: [92 %] On 4L O2 Gen: appears uncomfortable, lying in bed, washcloth on face HEENT: mmm, eomi, pupils small, anicteric CV: tachy, reg, s1s2, no r/m/g Pulm: clear anteriorly, unable to assess post at this time, shallow breaths Chest: no tenderness Abd: soft, nt, few bowel sounds : deferred Neuro: grossly intact Skin: no rashes Ext: no c/c/e Laboratory (Last 24 Hours): No results found for this or any previous visit (from the past 24 hour(s)). OSH 04/27/11 Wbc 9, hgb 11.6, plt 219 Bun 3, cr 0.5 04/24 mag 1.5 (1.8-2.4) co2 19 Ca 7.8 Lipase 142 04/23 ast 32 Alt 157 tprot 6.2 Alb 3.2 Alp 128 Lip 360 Radiology: CT abd 04/25 Slight prog of acute pancreatitis, no abscess of phlegmon Small bilat pleural effusions and subjacent atelectasis vs PNA Inflammatory changes around duodenum and GB No ascites or pneumoperitoneum seen U/S RUQ 04/21 No biliary duct dilation. CBD 0.4 cm. No GB thickening. No pericholecystic fluid Assessment: 40 y/o female, previously healthy, with recent admission for pancreatitis, and unresolved pain despite appropriate measures, and resolved lipase. Unclear cause of pancreatitis. Reports do not comment on presence of absence of stones in GB, but gallstone pancreatitis (with stone that has since passed) is certainly a possibility. She does not drink alcohol. Trig noted low when checked at OSH. Will repeat lipase and LFTs, to see if all abnormalities have resolved. Repeat read of images vs repeat imaging as well. Initial leukocytosis has resolv ed (which may have been mostly reactive), and no evidence of infection at this point in time. - cont hydration - po as tolerated - may need to explore other methods of nutrition - maybe RUQ u/s - do not see need for abx at this time, but low threshold to resume - symptom management - can Pain is no longer in epigastrium, but instead seems located right under L breast. The way the pt describes it sounds almost pleuritic. Concerned for PE or PNA. PE may be most likely, given hypoxia (though this could be from decreased breathing effort 2/2 pain and opioid administration) which is newbecause previously high 90s on RA at [facility], and tachycardia, though no evidence of DVT on exam. No real evidence of PNA, imaging sounds more like atelectasis, neither hx nor exam leads me to suspect PNA. - CXR - EKG - O2 as needed - consider other imaging (LE u/s, CT chest PE prot) FEN/PPX - diet as tolerated - MIVF - check lytes, replace as needed - lovenox Full code Attending Addendum: I have seen and examined the patient today. I discussed and reviewed this case with Dr. Johnson and agree with above HPI, PMH, ROS, physical exam, labs, assessment and plan. 40 y/o woman transferred with non-resolving abdominal pain from pancreatitis despite no evidence offluid collection Or other intra-abdominal source of pain. Currently sedated with no abdominal tenderness on examination. Patient hypoxemic, tachycardic and TWI in V1-V3. Agree with cardiac enzymes and CT PE protocol. Rest of plan as above Juvenal Lea documented in this encounter Procedure Notes * Constance Rahman - 04/28/2011 4:54 PM EST Thoracentesis Procedure Note Indication for Procedure: ?? Therapeutic tap Location of Procedure:Floor Risks and Benefits: The risks and benefits of this procedure were reviewed and informed consent wasobtained obtained. Time Out: Prior to the start of the procedure, the patient's identity, intended procedure, site/side, correct patient positioning and presence of the site jd was confirmed as applicable. The medical history and chart were reviewed to rule out potential contraindications to the planned procedure. Patient Positioning: Sitting upright. Hand Hygiene: The charge gang weigher did perform proper hand hygiene prior to the procedure. Procedure Technique: Skin was prepped with povidone-iodine. Sterile drape was applied. 7 ml of 1% Lidocaine was administered. Ultrasound guidance was conducted at the bedside. Procedure Details: A 14 gauge catheter was inserted in the left hemithorax at the 6th intercostal space. There were, 3 insertion attempt(s). Findings: There was not able to access pleural space.. Specimen sent for: ?? none Post Procedure:A post-procedure chest x-ray was ordered. There were no procedure complications. Procedure Comments: n/a CONSTANCE RAHMAN MD 04/28/2011 documented in this encounter Miscellaneous Notes * Miscellaneous - Provider, Scanning - 05/01/2011 1:26 PM EST * Plan of Care - Jayy Gonzales RN - 04/30/2011 11:17 AM EST Problem: Pain, Acute (Adult, Obstetric) Intervention: Acute Pain: Related Risk Factors Patient has no complaints of pain; patient states she will ask for Tylenol or Ibuprofen if she has indications of pain. Patient believes she is to be discharged this day. Patient received Lovenox perorder. * Discharge Summary - Reynaldo Apple - 04/30/2011 10:12 AM EST Internal Medicine - Discharge Summary Patient Name Antonia Lance Age 40 y.o. Date of 1970 Admission Date 04/27/2011 Discharge Date 04/30/2011 Attending Physician at Discharge Juvenal Lea MD Follow-up Recommendations for Providers: ?? Please repeat a CXR in ~4 weeks to assess for resolving pleural effusions. Discharge Diagnoses (Hospital Problems) and Secondary Diagnoses (Chronic Problems): There are no hospital problems to display for this patient. Operations/Major Procedures: Unsuccessful thoracentesis 04/28/2011 Consults: None. History of Presentation: 40 y/o male presents as transfer from [facility] for unresolving abd pain after pancreatitis. Pt originally presented 04/21, having had abd pain for 2 wks. Originally thought in nature, with neg pelvic w/u. Upon admission, found lipase 53k, and treated for pancreatitis. Pain control and IVFand antiemetics given. Pt very sensitive to narcotics, requiring reversal with narcan after apneic.[place] improved in coming days, with resolving lipase. Pain then moved to LUQ following placement of central line. CT scan and repeat showing no pseudocyst, inflammatory changes persisted. Treated withunasyn as did not seem to improve. Central line placed 04/24, and CXR after showed ? PNA and pt with low grade fever (but no white count, not hypoxic, not SOB, no cough), placed on levaquin briefly. Pt with continued pain, and nausea and headaches from opioids. She has been persistently tachy to low 100s, though reportedly no arrhythmia. Subjectively now, pt still with pain in anterior chest just below left breast, and also pain aroundsite of subclavian. Worsened with coughing and inspiration. Quite well controlled on pain meds right now. Pain meds make her very drowsy, along with nausea and headache. She has not had anything to eat in past week. Moved bowels once in past week. Hospital Course: Pancreatitis -- The patient's data from [facility] were reviewed. Lipase was rechecked and was normal. Itseemed the patient's pancreatitis had resolved after appropriate management at [facility]. The etiology remains uncertain, as there was no report of alcohol use, there was no evidence of gallstones, triglycerides were normal, the patient was not taking any medications and there was no history of trauma. Interestingly, she reports that he father and paternal grandfather have had pancreatitis as well andthere may certainly be a genetic predisposition for pancreatitis in this patient. Pleural Effusions -- The patient's initial tachycardia, pleuritis chest pain and oxygen requirementgave concern for a pulmonary embolism. CT-PE did not show any clot but bilateral pleural effusions were noted. These were assumed to be related to the patient's fluid resuscitation and inflammatory state (all at [facility]). Bedside thoracentesis was attempted but was unsuccessful for obtaining any fluid. Fortunately, the patient improved significantly the day following that attempt without any other intervention. She was tolerating small amounts of food, ambulating to the bathroom, breathing well onroom air and had no pain (her subclavian line had been removed the night prior). Important Studies and Lab Data: Recent Labs Basename 04/29/11 0700 04/28/11 0605 04/27/112049 ??? WBC 4.4 6.3 7.0 ??? HGB 11.3 11.0* 11.0* ??? PLATELET 232 215 211 Recent Labs Basename 04/29/11 0700 04/28/11 0605 04/27/112049 ??? NA 143 139 136 ??? K 3.6 3.3* 4.0 ??? CO2 33* 27 26 ??? CL 103 101 100 ??? BUN 3* 2* 3* ??? CREATININE 0.38* 0.30* 0.36* ??? CALCIUM 8.7 8.5 8.8 ??? MAGNESIUM -- -- 0.66* ??? PHOS -- -- 2.6 Recent Labs Basename 04/28/11 1442 04/27/112049 ??? PROT 5.9* 6.1* ??? ALBUMIN -- 3.2 ??? BILITOT -- 0.3 ??? BILIDIR -- 0.1 ??? AST -- 9 ??? ALT -- 29 ??? ALKPHOS -- 89 Studies: CT-PE -- 04/27/2011: 1. No CT evidence of pulmonary embolism. 2. Bilateral moderate-sized pleural effusions, left greater than right, with associated atelectasis. Patchy opacities in the right upper lobe, and to a lesser degree, lingular lobe,suggestive of underlying pneumonic process. CXR -- 04/28/2011: No significant interval change. No pneumothorax. Pending Studies and Lab Data: None. Discharge Conditions/Prognosis: Good. Breathing well on room air, eating, ambulating, eliminating without issue. Discharge to: Home with family. Discharge Medications: No medications prior to admission that will be resumed at discharge. New medications prescribed at discharge: Medication Sig Dispense Refill ??? acetaminophen (TYLENOL) 325 mg tablet Take 2 tablets by mouth every 6 hours as needed for Pain.30 tablet ??? ibuprofen (ADVIL;MOTRIN) 600 mg tablet Take 1 tablet by mouth every 6 hours as needed for Pain.30 tablet Updated Allergies/ADRs: Allergies Allergen Reactions ??? Azithromycin CIS - Hives, CIS - Hives, CIS - Hives ??? Chlorhexidine Gluconate CIS - Rash, CIS - Rash, CIS - Rash ??? Adhesive Tape CIS - Rash, CIS - Rash, CIS - Rash Provider Instructions You were hospitalized for: resolving pancreatitis and pleural effusions (fluid between your lungs and the chest wall). Call your doctor if you develop: fever, chills, chest pain, difficulty breathing, nausea, vomiting,abdominal pain, or any other concerning symptoms. Activity level: As tolerated. Diet: No restrictions, but increase the amount of intake slowly until you are sure you can toleratea normal diet again. Driving: As prior to admission. Shower/Bath: No restrictions Wound Care: n/a Follow up Appointments: Please call Dr. Levine [place] [facility] [place] Marshal Shen, Jayden, and Julius Medications: - If you still have RESIDUAL pains you can try ibuprofen or tylenol [id number]. Any new pain or worsening pain should prompt re-evaluation by a doctor. General Instructions None Provider Contact Information: MARLON LEVINE MD [address] [facility] / [facility] [address] (phone) [phone] (fax) Signed: REYNALDO APPLE MD Discharged: 04/30/2011 * Plan of Care - Lori Reinoso RN - 04/30/2011 5:23 AM EST Problem: Pain, Acute (Adult, Obstetric) Intervention: Acute Pain: Signs and Symptoms Pt made no complaint of chest discomfort, post line removal. Pt also states she did not want scheduled Tylenol and Ibuprofen. She preferred to ask for it is she had a headache which happened once. 600 mg Ibuprofen given with good relief. Pt is independent in room, father stayed overnight in room and pt seems in very good spirits and pleased with her progress. * Plan of Care - Aiden Mac RN - 04/29/2011 8:06 PM EST Problem: Tissue Perfusion, Ineffective Peripheral (Adult, Pediatric, Obstetric) Goal: Tissue Perfusion, Ineffective Peripheral: Adequate Tissue Perfusion Pt stated breathing easy, stated improvement from 2/2. BS clear, diminished bases, infrequent cough, pt denies s/s congestion. C/o occasional pleuritic pain, L anterior LF upon cough, denies pain at rest. Thoracentesis site CDI, no drainage. Sats 100% 3LNC, O2 decreased to 1.5 L in evening for sats98%, O2 d/tonny late evening, sats 96-98% RA. Systolic BP 170's in afternoon, pt asymptomatic. aware of am elevated BP's, all BP's taken in L leg r/t hx of bilateral mastectomy. Pt confirmed previous hx of proportionally higher BP's when taken in legs during previous admission. Breathing easy at present, HRR, no cp. Cont to monitor. * Initial Assessments - Ca Severino LD - 04/29/2011 2:14 PM EST Nutrition Initial Evaluation Note: S: Per pt: I haven't had any pain with liquids. Appetite: Minimal but improving Chewing/Swallowing: No problems per pt N/V: No problems per pt O: Dx: Resolved pancreatitis and lg. bilat pleural effusion PMH: h/o breast ca with surgical excision ( & ), mastectomy Diet: Full Liquids Height: 177.8 cm Admit Weight: N/A UBW: 80 kg recently (pt has been intentionally lowering her weight since January 2011) BMI based on UBW: 25 Labs: na+: 143, K+: 3.6, BUN: 3, Creat: 0.38, Ca: 8.7, Albumin: 3.2 Medications: Senna-docusate A: RD consulted for pt with no po over the past week and question for TPN. Pt diet has been advanced to full liquids. She is tolerating full liquids well. Pt seen just after lunch today and tray was almost completely consumed with the exception of milk. She reported no abdominal pain. Discussed how a low fat diet may aid in minimizing pain and that she may want to follow a low fat diet for the next few days. Provided handout on dietary consideration s/p pancreatitis which includeslow fat diet instruction. We also discussed low fat supplements and snacks to maximize po intake. Pt is agreeable to try alexsandra clear liquid Boost Breeze nutrition supplement. Will provide at dinner tonight. Pt will order more if she likes. Pt has not been weighed since admission. She reports not having substantial po intake for about a week and feels she may have lost some weight. Based on her usually body weight, her BMI is nearly WNL(just slightly elevated). Spoke with [employer]PECTOR who will weigh pt today. Because pt is tolerating full liquid diet and is willing to try some nutrition supplements, would hold off on TPN. At most would recommend PPN for partial support until po fully improves. Recommend low fat as goal diet. P: 1. Encourage po intake. 2. Will provide nutrition supplements. 3. Because pt is tolerating full liquid diet and is willing to try some nutrition supplements, would hold off on TPN. At most would recommend PPN for partial support until po fully improves. 4. Recommend Low Fat as goal diet. 5. Nutrition to follow throughout hospital stay. * Plan of Care - Dasia Dillard RN - 04/28/2011 6:38 PM EST Problem: Pain, Acute (Adult, Obstetric) Goal: Acute Pain: Acceptable Pain Control/Comfort Level - Pain, Acute (Adult, Obstetric) Patient has has significant pain at her subclavian central line site throughout the day. She has been using her Dilaudid DISPATCHER TOW TRUCK. However, the DISPATCHER TOW TRUCK's power turned off and the information was lost on how much was infused. She has been hypertensive off and on today. MD aware. [place] cath in place draining clear yellow urine. Patient turned and repositioned. She was able to ambulate today a few feet for the first time in a week. Patient on clear liquid diet and has been eating jello and taking sips ofwater and juice. She feels dizzy and nauseous when she moves around. Family at bedside. Will continue to monitor and report changes to Md. * Miscellaneous - Tanvir, Kelli - 04/28/2011 12:48 PM EST * Plan of Care - Maria C Senior RN - 04/28/2011 7:02 AM EST Problem: Pain, Acute (Adult, Obstetric) Goal: Acute Pain: Acceptable Pain Control/Comfort Level - Pain, Acute (Adult, Obstetric) Outcome: Present (see interventions, notes) Pt c/o'd pain in the left upper chest near the site of the triple lumen subclavian catheter. Pt stated the pain radiated down to up to her left upper quadrant. Pt also stated the pain was worse with movement and it was described as sharp and at rest it would subside with occasional bursts of sharp pain. Pt has a Dilaudid DISPATCHER TOW TRUCK and has only used 0.5 mg so far this shift. Pt started passing flatus during the night. Pressure Ulcer Risk Pt was turned from side to side throughout the noc. There is no breakdown noted on the coccyx or the heels. SCDs placed and heels floated. * Consult Note - Kathryn Peralta RN - 04/27/2011 9:38 PM EST Pt has triple-lumen subclavian line placed at OSH. Pt's nurse on 3E asked if pt required a peripheral 18g IV for CT. I spoke with someone in CT, who could not give me a definitive answer, so I told pt's nurse that I could try to place a peripheral IV. Pt's sister, who overheard our conversation, came and told us that pt has had CTs earlier at other facilities and they used her subclavian line. Pt's nurse calls CT and she stated that she was told that they can use her subclavian line for the CT. documented in this encounter Plan of Treatment Not on file documented as of this encounter Procedures Procedure Name Priority Date/Time Associated Diagnosis Comments DIFFERENTIAL, AUTOMATED Routine 04/29/2011 7:00 AM EST CBC (WITH DIFF) Routine 04/29/2011 7:00 AM EST BASIC METABOLIC PANEL Routine 04/29/2011 7:00 AM EST XR CHEST PA AND LATERAL Routine 04/28/2011 3:51 PM EST PROTEIN, TOTAL Routine 04/28/2011 2:42 PM EST LACTATE DEHYDROGENASE Routine 04/28/2011 2:42 PM EST CYTOPATHOLOGY NON-GYNECOLOGICAL Routine 04/28/2011 12:35 PM EST DIFFERENTIAL, AUTOMATED Routine 04/28/2011 6:05 AM EST CARDIAC [place] [place] Routine 04/28/2011 6:05 AM EST CBC (WITH DIFF) Routine 04/28/2011 6:05 AM EST BASIC METABOLIC PANEL Routine 04/28/2011 6:[address] CHEST PULMONARY EMBOLISM W CONTRAST STAT 04/27/2011 9:54 PM EST CARDIAC ENZYMES [place] [place] Routine 04/27/2011 9:03 PM EST LIPASE Routine 04/27/2011 9:03 PM EST DIFFERENTIAL, AUTOMATED Routine 04/27/2011 8:50 PM EST D-DIMER, QUANTITATIVE Routine 04/27/2011 8:50 PM EST APTT Routine 04/27/2011 8:50 PM EST PROTHROMBIN TIME Routine 04/27/2011 8:50 PM EST CBC (WITH DIFF) Routine 04/27/2011 8:50 PM EST PHOSPHORUS Routine 04/27/2011 8:50 PM EST MAGNESIUM Routine 04/27/2011 8:50 PM EST HEPATIC FUNCTION PANEL Routine 2 8:50 PM EST BASIC METABOLIC PANEL Routine 04/27/2011 8:50 PM EST XR CHEST ONE VIEW Routine 04/27/2011 7:3 1 PM EST BLOOD GAS ARTERIAL ([facility]) STAT 04/27/2011 7:15 PM EST EKG 12-LEAD Routine 04/27/2011 6:31 PM EST Breast cancer URINALYSIS WITH REFLEX CULTURE Routine 04/27/2011 6:11 PM EST FILM LIBRARY STORAGE ONLY CT ABDOMEN AND PELVIS Routine 04/24/2011 7:53 PM EST documented in this encounter Results * (ABNORMAL) DIFFERENTIAL, AUTOMATED (04/29/2011 7:00 AM EST) Neutrophil % 64.6 34.0 - 71.0 % CERNER MILLENNIUM Neutrophil Absolute 2.86 1.50 - 6.30 x10(3)/mc L CERNER MILLENNIUM Lymph % 17.8(L) 19.0 - 53.0 % CERNER MILLENNIUM Lymphocytes Abs 0.8(L) 1.0 - 3.6 x10(3)/mc L CERNER MILLENNIUM Monocyte % 11.3 4.0 - 13.0 % CERNER MILLENNIUM Monocyte Abs 0.5 0.2 - 1.0 x10(3)/mc L CERNER MILLENNIUM Eos % 4.7 0.0 - 7.0 % CERNER MILLENNIUM Eosinophils Abs 0.2 0.0 - 0.5 x10(3)/mc L CERNER MILLENNIUM Basophil % 0.7 0.0 - 2.0 % CERNER MILLENNIUM Baso Absolute 0.0 0.0 - 0.2 x10(3)/mc L CERNER MILLENNIUM Immature Gran % 0.90(H) 0.00 - 0.66 % CERNER MILLENNIUM Comment: Immature granulocytes(IG's)percentage and absolute count will include metamyelocytes, myelocytes, and promyelocytes. Blood smears from CBCs yielding IG's will be scanned manually for concordance. If this scan disagrees with the automated IG or if promyelocytes are noted, a manual differential will be performed. Immature Gran Absolute 0.04 0.00 - 0.05 x10(3)/mc L CERNER MILLENNIUM Blood specimen (specimen) 04/29/2011 7:00 AM EST 04/29/2011 7:13 AM EST Juvenal Lea MD HEMATOLOGY ORDERABLE S CERNER MILLENNIUM * (ABNORMAL) Basic Metabolic Panel (non-fasting) (04/29/2011 7:00 AM EST) Glucose 109 60 - 199 mg/dL CERNER MILLENNIUM Comment:Diabetes: >=200 mg/d L plus symptoms Blood Urea Nitrogen 3(L) 8 - 18 mg/dL CERNER MILLENNIUM Creatinine 0.38(L) 0.70 - 1.20 mg/dL CERNER MILLENNIUM Sodium 143 135 - 145 mmol/L CERNER MILLENNIUM Potassium 3.6 3.5 - 5.0 mmol/L CERNER MILLENNIUM Comment: Please note: ??Patients with WBC >100,000 may have falsely elevated Potassium levels. ??For accurate Potassium quantification in these patients send serum separator tube (gold top) for subsequent determinations. ??Contact the Clinical Chemistry Laboratory if there are any questions. Chloride 103 98 - 107 mmol/L CERNER MILLENNIUM Carbon Dioxide 33(H) 22 - 31 mmol/L CERNER MILLENNIUM Anion Gap 7 5 - 15 mmol/L CERNER MILLENNIUM Calcium 8.7 8.5 - 10.5 mg/dL CERNER MILLENNIUM Est Glomerular Filtration Rate >60 >=60 CERNER MILLENNIUM Comment: The National Kidney Disease Education Program (NKDEP) has recommended all laboratories report estimated GFR (eGFR) along with plasma creatinine measurements to assist you with recognition of early kidney disease. Caveats: ??Plasma creatinine should be at steady-state (unchanged within the past week). For patients multiply eGFR by 1.2. The MDRD equation has not been validated for pediatric patients and is only valid for patients with age >= 18 years. At present, NKDEP does NOT recommend using the MDRD equation for drug dosing purposes and pharmacists should continue to use their current dosing methods. In addition, numerical eGFR values greater than 60 ml/min/1.73 square meters should be treated as > 60, and not an exact number due to greater inaccuracies at these higher values. Per NKDEP, they classify normal renal function as any GFR >60ml/min/1.73 square meters; chronic kidney disease when GFR <60, and renal failure when GFR <15. ??This calculation may not be valid for patients with atypical muscle mass (very lean or obese), acute renal failure, and in patients with diabetic kidney disease. References: http://nkdep.nih.gov/resources/NKDEP_Suggestn4Labs_0606_508.pdf http://www.kidney.org/professionals/kls/pdf/faq_gfr.pdf Blood specimen (specimen) 04/29/2011 7:00 AM EST 04/29/2011 7:13 AM EST Juvenal Lea MD CHEMISTRY ORDERABLES [facility] * (ABNORMAL) CBC (with Diff) (04/29/2011 7:00 AM EST) White Blood Cell 4.4 4.0 - 10.0 x10(3)/mc L CERNER MILLENNIUM Red Blood Cell 3.71(L) 3.93 - 5.22 x10(6)/mc L CERNER MILLENNIUM Hemoglobin 11.3 11.2 - 15.7 gm/dL CERNER MILLENNIUM Hematocrit 33.6(L) 34.0 - 45.0 % CERNER MILLENNIUM Mean Cell Volume 90.6 79.0 - 94.0 fL CERNER MILLENNIUM Mean Cell Hemoglobin 30.5 26.6 - 32.2 pg CERNER MILLENNIUM Mean Cell Hemoglobin Concentration 33.6 32.0 - 36.5 gm/dL CERNER MILLENNIUM Platelet 232 145 - 370 x10(3)/mc L CERJING REDDYENNIUM RDW Standard Deviation 41.5 35.0 - 46.0 fL CERNER MILLENNIUM RDW coefficient of variation 12.7 10.9 - 14.4 % CERJING MILLENNIUM Mean Platelet Volume 9.8 9.0 - 12.0 fL MENDEL REDDYENNIUM Blood specimen (specimen) 04/29/2011 7:00 AM EST 04/29/2011 7:13 AM EST Juvenal Lea MD HEMATOLOGY ORDERABLE S MENDEL COLLAZOIUM * XR CHEST ROUTINE PA & LATERAL (04/28/2011 3:51 PM EST) Anatomical Region Laterality Modality Chest N/A Radiographic Laura ging 04/28/2011 3:51 PM EST Impressions 04/29/2011 8:16 AM EST IMPRESSION: ?? No significant interval change. ??No pneumothorax. ?? Film and interpretation reviewed by the attending Narrative 04/29/2011 8:16 AM EST TWO VIEWS OF THE CHEST: ?? INDICATION: ??Status post unsuccessful thoracentesis. ?? COMPARISON: ??04/27/11. ?? FINDINGS: ??Frontal and lateral views of the chest demonstrate low lung volumes with bilateral, left greater than right, pleural effusions and bibasilar atelectasis. ??No pneumothoraces. ??A left-sided PICC terminates at the SVC/brachiocephalic junction. ??Multiple mediastinal surgical clips are identified. ?? Procedure Note Sofia Arredondo MD - 04/29/2011 TWO VIEWS OF THE CHEST: INDICATION: Status post unsuccessful thoracentesis. COMPARISON: 04/27/11. FINDINGS: Frontal and lateral views of the chest demonstrate low lungvolumes with bilateral, left greater than right, pleural effusions and bibasilar atelectasis. No pneumothoraces. A left-sided PICC terminates at the SVC/brachiocephalic junction. Multiple mediastinal surgical clips are identified. IMPRESSION IMPRESSION: No significant interval change. No pneumothorax. Film and interpretation reviewed by the attending Reynaldo Apple MD IMG DX ORDERABLES * Lactate Dehydrogenase (04/28/2011 2:42 PM EST) Pathologist [facility] Lactate Dehydrogenase 142 110 - 220 unit/L [facility] Blood specimen (specimen) 04/28/2011 2:42 PM EST 04/28/2011 2:48 PM EST Juvenal Lea MD CHEMISTRY ORDERABLES Performing Organization Address [facility] Phone Number [facility] * (ABNORMAL) Protein, total (04/28/2011 2:42 PM EST) Pathologist [facility] Protein, Total 5.9(L) 6.4 - 8.3 gm/dL [facility] Blood specimen (specimen) 04/28/2011 2:42 PM EST 04/28/2011 2:48 PM EST Juvenal Lea MD CHEMISTRY ORDERABLES Performing Organization Address [facility] de Phone Number [facility] * Cytopathology Non-Gynecological (04/28/2011 12:35 PM EST) AP Specimen 04/28/2011 12:3 5 PM EST 04/28/2011 12:35 PM EST Narrative [facility] - 04/28/2011 12:35 PM EST Specimen requisition ordered. ??Separate Pathology report to follow Juvenal Lea MD PATHOLOGY/CYTOLOGY O RDERABLES Performing Organization Address [facility] Phone Number [facility] * CARDIAC ENZYMES (04/28/2011 6:05 AM EST) Pathologist [facility] Troponin-T <0.03 <=0.03 ng/mL [facility] Comment: 0.03 ng/mL: Represents the 99th percentile upper reference limit for normals. >0.03 ng/mL: Elevated cardiac troponin T level indicative of myocardial damage. Diagnosis of acute, evolving or recent NV requires a typical rise and gradual fall of cTnT with at least ONE of the following: a) Ischemic symptoms b) Development of pathologic Q waves on the ECG c) ECG changes indicative of eschemia (S-T segment elevation/depression) d) Coronary artery intervention Serial bloods should be obtained for testing on admission, at 6 to 9 hrs and again at 12 to 24 hrs if earlier samples are negative and the clinical index of suspicion is high. Reference: [Myocardial infarction redefined a consensus document of the Joint Society of Cardiology/[place] College [employer] Committee for the redefinition of myocardial infarction. Journal of the [place] College of [employer]iology 2000; 36: 959-969] Creatine Kinase 29 0 - 160 unit/L CERNER MILLENNIUM Blood specimen (specimen) 04/28/2011 6:05 AM EST 04/28/2011 6:31 AM EST Juvenal Lea MD CHEMISTRY ORDERABLES CERNER MILLENNIUM * (ABNORMAL) DIFFERENTIAL, AUTOMATED (04/28/2011 6:05 AM EST) Neutrophil % 73.6(H) 34.0 - 71.0 % CERNER MILLENNIUM Neutrophil Absolute 4.64 1.50 - 6.30 x10(3)/mc L CERNER MILLENNIUM Lymph % 15.6(L) 19.0 - 53.0 % CERNER MILLENNIUM Lymphocytes Abs 1.0 1.0 - 3.6 x10(3)/mc L CERNER MILLENNIUM Monocyte % 6.8 4.0 - 13.0 % CERNER MILLENNIUM Monocyte Abs 0.4 0.2 - 1.0 x10(3)/mc L CERNER MILLENNIUM Eos % 3.0 0.0 - 7.0 % CERNER MILLENNIUM Eosinophils Abs 0.2 0.0 - 0.5 x10(3)/mc L CERNER MILLENNIUM Basophil % 0.2 0.0 - 2.0 % CERNER MILLENNIUM Baso Absolute 0.0 0.0 - 0.2 x10(3)/mc L CERNER MILLENNIUM Immature Gran % 0.80(H) 0.00 - 0.66 % CERNER MILLENNIUM Comment: Immature granulocytes(IG's)percentage and absolute count will include metamyelocytes, myelocytes, and promyelocytes. Blood smears from CBCs yielding IG's will be scanned manually for concordance. If this scan disagrees with the automated IG or if promyelocytes are noted, a manual differential will be performed. Immature Gran Absolute 0.05 0.00 - 0.05 x10(3)/mc L CERNER MILLENNIUM Blood specimen (specimen) 04/28/2011 6:05 AM EST 04/28/2011 6:16 AM EST Juvenal Lea MD HEMATOLOGY ORDERABLE S CERNER MILLENNIUM * (ABNORMAL) Basic Metabolic Panel (non-fasting) (04/28/2011 6:05 AM EST) Glucose 110 60 - 199 mg/dL CERNER MILLENNIUM Comment:Diabetes: >=200 mg/d L plus symptoms Blood Urea Nitrogen 2(L) 8 - 18 mg/dL CERNER MILLENNIUM Creatinine 0.30(L) 0.70 - 1.20 mg/dL CERNER MILLENNIUM Sodium 139 135 - 145 mmol/L CERNER MILLENNIUM Potassium 3.3(L) 3.5 - 5.0 mmol/L CERNER MILLENNIUM Comment: Please note: ??Patients with WBC >100,000 may have falsely elevated Potassium levels. ??For accurate Potassium quantification in these patients send serum separator tube (gold top) for subsequent determinations. ??Contact the Clinical Chemistry Laboratory if there are any questions. Chloride 101 98 - 107 mmol/L CERNER MILLENNIUM Carbon Dioxide 27 22 - 31 mmol/L CERNER MILLENNIUM Anion Gap 11 5 - 15 mmol/L CERNER MILLENNIUM Calcium 8.5 8.5 - 10.5 mg/dL CERNER MILLENNIUM Est Glomerular Filtration Rate >60 >=60 CERNER MILLENNIUM Comment: The National Kidney Disease Education Program (NKDEP) has recommended all laboratories report estimated GFR (eGFR) along with plasma creatinine measurements to assist you with recognition of early kidney disease. Caveats: ??Plasma creatinine should be at steady-state (unchanged within the past week). For patients multiply eGFR by 1.2. The MDRD equation has not been validated for pediatric patients and is only valid for patients with age >= 18 years. At present, NKDEP does NOT recommend using the MDRD equation for drug dosing purposes and pharmacists should continue to use their current dosing methods. In addition, numerical eGFR values greater than 60 ml/min/1.73 square meters should be treated as > 60, and not an exact number due to greater inaccuracies at these higher values. Per NKDEP, they classify normal renal function as any GFR >60ml/min/1.73 square meters; chronic kidney disease when GFR <60, and renal failure when GFR <15. ??This calculation may not be valid for patients with atypical muscle mass (very lean or obese), acute renal failure, and in patients with diabetic kidney disease. References: http://nkdep.nih.gov/resources/NKDEP_Suggestn4Labs_0606_508.pdf http://www.kidney.org/professionals/kls/pdf/faq_gfr.pdf Blood specimen (specimen) 04/28/2011 6:05 AM EST 04/28/2011 6:16 AM EST Juvenal Lea MD CHEMISTRY ORDERABLES CERNER MILLENNIUM * (ABNORMAL) CBC (with Diff) (04/28/2011 6:05 AM EST) White Blood Cell 6.3 4.0 - 10.0 x10(3)/mc L CERNER MILLENNIUM Red Blood Cell 3.57(L) 3.93 - 5.22 x10(6)/mc L CERNER MILLENNIUM Hemoglobin 11.0(L) 11.2 - 15.7 gm/dL CERNER MILLENNIUM Hematocrit 32.1(L) 34.0 - 45.0 % CERNER MILLENNIUM Mean Cell Volume 89.9 79.0 - 94.0 fL CERNER MILLENNIUM Mean Cell Hemoglobin 30.8 26.6 - 32.2 pg CERNER MILLENNIUM Mean Cell Hemoglobin Concentration 34.3 32.0 - 36.5 gm/dL CERNER MILLENNIUM Platelet 215 145 - 370 x10(3)/mc L CERNER MILLENNIUM RDW Standard Deviation 41.2 35.0 - 46.0 fL CERNER MILLENNIUM RDW coefficient of variation 12.7 10.9 - 14.4 % MENDEL REDDYENNIUM Mean Platelet Volume 9.9 9.0 - 12.0 fL MENDEL REDDYENNIUM Blood specimen (specimen) 04/28/2011 6:05 AM EST 04/28/2011 6:16 AM EST Juvenal Lea MD HEMATOLOGY ORDERABLE S MENDEL AVERY * CT chest pulmonary embolism with contrast (04/27/2011 9:54 PM EST) Anatomical Region Laterality Modality Chest Computed Tomogra phy 04/27/2011 9:54 PM EST Impressions 04/29/2011 1:57 PM EST IMPRESSION: 1. ??No CT evidence of pulmonary embolism. 2. ??Bilateral moderate-sized pleural effusions, left greater than right, with associated atelectasis. Patchy opacities in the right upper lobe, and to a lesser degree, lingular lobe,suggestive of underlying pneumonic process. Narrative 04/29/2011 1:[address] CHEST FOR PULMONARY EMBOLUS: INDICATION: ??Hypoxic, pleuritic chest pain, tachycardia. PRIOR STUDIES: ??CT chest for pulmonary embolism, 11/01/08, and chest x-ray, . TECHNIQUE: ??CT chest for pulmonary embolism was performed following the administration of 95 cc of Omnipaque-350 intravenously. FINDINGS: ??The main pulmonary artery is normal in caliber and configuration without intraluminal filling defect within the main pulmonary artery or its segmental branches to suggest pulmonary embolism. No evidence of right heart strain. There are bilateral moderate-sized pleural effusions, left greater than right, with associated atelectasis. There are airspace opacities in the right upper lobe, and a to lesser degree, lingular lobe, suggesting underlying pneumonic process. No significant thoracic lymphadenopathy. Limited evaluation of the upper abdomen within normal limits. Bony structures are grossly normal. Procedure Note Vamsi Talley DO - 04/29/2011 CT CHEST FOR PULMONARY EMBOLUS: INDICATION: Hypoxic, pleuritic chest pain, tachycardia. PRIOR STUDIES: CT chest for pulmonary embolism, 11/01/08, and chestx-ray, . TECHNIQUE: CT chest for pulmonary embolism was performed following the administration of 95 cc of Omnipaque-350 intravenously. FINDINGS: The main pulmonary artery is normal in caliber andconfiguration without intraluminal filling defect within the main pulmonary artery orits segmental branches to suggest pulmonary embolism. No evidence of rightheart strain. There are bilateral moderate-sized pleural effusions, left greater thanright, with associated atelectasis. There are airspace opacities in the rightupper lobe, and a to lesser degree, lingular lobe, suggesting underlyingpneumonic process. No significant thoracic lymphadenopathy. Limited evaluation of the upper abdomen within normal limits. Bony structures are grossly normal. IMPRESSION IMPRESSION: 1. No CT evidence of pulmonary embolism. 2. Bilateral moderate-sized pleural effusions, left greater than right,with associated atelectasis. Patchy opacities in the right upper lobe, and to a lesser degree, lingular lobe,suggestive of underlying pneumonic process. Juvenal Lea MD IMG CT ORDERABLES * CARDIAC ENZYMES (04/27/2011 9:03 PM EST) Troponin-T <0.03 <=0.03 ng/mL [facility] Comment: 0.03 ng/mL: Represents the 99th percentile upper reference limit for normals. >0.03 ng/mL: Elevated cardiac troponin T level indicative of myocardial damage. Diagnosis of acute, evolving or recent NV requires a typical rise and gradual fall of cTnT with at least ONE of the following: a) Ischemic symptoms b) Development of pathologic Q waves on the ECG c) ECG changes indicative of eschemia (S-T segment elevation/depression) d) Coronary artery intervention Serial bloods should be obtained for testing on admission, at 6 to 9 hrs and again at 12 to 24 hrs if earlier samples are negative and the clinical index of suspicion is high. Reference: [Myocardial infarction redefined a consensus document of the Joint Society of Cardiology/[place] [employer] Committee for the redefinition of myocardial infarction. Journal of the [place] College [employer] 2000; 36: 959-969] Creatine Kinase 34 0 - 160 unit/L [facility] Blood specimen (specimen) 04/27/2011 9:03 PM EST 04/27/2011 9:20 PM EST Juvenal Lea MD CHEMISTRY ORDERABLES [facility]ENDEL COLL[facility] * Lipase (04/27/2011 9:03 PM EST) Lipase 19 0 - 60 unit/L CERNER MILLENNIUM Blood specimen (specimen) 04/27/2011 9:03 PM EST 04/27/2011 9:20 PM EST Juvenal Lea MD CHEMISTRY ORDERABLES Performing Organization Address City/[facility]/ZIP Co de Phone Number MENDEL COLL[facility]OIUM * (ABNORMAL) DIFFERENTIAL, AUTOMATED (04/27/2011 8:50 PM EST) Neutrophil % 83.4(H) 34.0 - 71.0 % CERNER MILLENNIUM Neutrophil Absolute 5.87 1.50 - 6.30 x10(3)/mc L CERNER MILLENNIUM Lymph % 8.8(L) 19.0 - 53.0 % CERNER MILLENNIUM Lymphocytes Abs 0.6(L) 1.0 - 3.6 x10(3)/mc L CERNER MILLENNIUM Monocyte % 5.3 4.0 - 13.0 % CERNER MILLENNIUM Monocyte Abs 0.4 0.2 - 1.0 x10(3)/mc L CERNER MILLENNIUM Eos % 1.3 0.0 - 7.0 % CERNER MILLENNIUM Eosinophils Abs 0.1 0.0 - 0.5 x10(3)/mc L CERNER MILLENNIUM Basophil % 0.3 0.0 - 2.0 % CERNER MILLENNIUM Baso Absolute 0.0 0.0 - 0.2 x10(3)/mc L CERNER MILLENNIUM Immature Gran % 0.90(H) 0.00 - 0.66 % CERNER MILLENNIUM Comment: Immature granulocytes(IG's)percentage and absolute count will include metamyelocytes, myelocytes, and promyelocytes. Blood smears from CBCs yielding IG's will be scanned manually for concordance. If this scan disagrees with the automated IG or if promyelocytes are noted, a manual differential will be performed. Immature Gran Absolute 0.06(H) 0.00 - 0.05 x10(3)/mc L [facility] Blood specimen (specimen) 04/27/2011 8:50 PM EST 04/27/2011 9:20 PM EST Juvenal Lea MD HEMATOLOGY ORDERABLE S Performing Organization Address [facility] Phone Number [facility] * (ABNORMAL) D-Dimer, Quantitative (04/27/2011 8:50 PM EST) D-Dimer 3685(H) 0 - 500 FEU ng/ml [facility] Comment: The D-Dimer assay is used to aid in the diagnosis of deep vein thrombosis and pulmonary embolism. A normal D-Dimer result (less than 500 FEU ng/ml) has a negative predictive value of approximately 95% for the exclusion of acute PE and DVT when there is low to moderate pretest probability. Blood specimen (specimen) 04/27/2011 8:50 PM EST 04/27/2011 9:20 PM EST Juvenal Lea MD HEMATOLOGY ORDERABLE S Performing Organization Address [facility] Number [facility] * APTT (04/27/2011 8:50 PM EST) Partial Thromboplastin Time 33 25 - 35 sec [facility] Comment: Recommended therapeutic PTT range for full dose unfractionated heparin is 80-114 seconds. Blood specimen (specimen) 04/27/2011 8:50 PM EST 04/27/2011 9:20 PM EST Juvenal Lea MD HEMATOLOGY ORDERABLE S Performing Organization Address [facility] Phone Number [facility] * (ABNORMAL) Prothrombin Time (04/27/2011 8:50 PM EST) Prothrombin Time 15.5(H) 12.3 - 14.7 sec [facility] Comment: [facility] Transfusion Committee Guidelines: INR less than 2.0, PTT less than OR equal to 43.5 seconds, or Fibrinogen greater than or equal to 100 mg/dl indicate adequate procoagulant activity for hemostasis in patients without underlying bleeding disorders. International Normalization Ratio 1.2(H) 0.9 - 1.1 CERNER MILLENNIUM Blood specimen (specimen) 04/27/2011 8:50 PM EST 04/27/2011 9:20 PM EST Juvenal Lea MD HEMATOLOGY ORDERABLE S Performing Organization Address [facility] de Phone Number CERJING MILLENNIUM * (ABNORMAL) Hepatic Function Panel (04/27/2011 8:50 PM EST) Protein, Total 6.1(L) 6.4 - 8.3 gm/dL CERNER MILLENNIUM Albumin 3.2 3.2 - 5.2 gm/dL CERNER MILLENNIUM Aspartate Aminotransferase 9 0 - 30 unit/L CERNER MILLENNIUM Alanine Aminotransferase 29 0 - 30 unit/L CERNER MILLENNIUM Alkaline Phosphatase 89 40 - 104 unit/L CERNER MILLENNIUM Bilirubin, Total 0.3 0.2 - 1.3 mg/dL CERNER MILLENNIUM Bilirubin, Direct 0.1 0.0 - 0.3 mg/dL CERNER MILLENNIUM Blood specimen (specimen) 04/27/2011 8:50 PM EST 04/27/2011 9:20 PM EST Juvenal Lea MD CHEMISTRY ORDERABLES Performing Organization Address [facility] Phone Number CERNER MILLENNIUM * Phosphorus (04/27/2011 8:50 PM EST) Phosphorus 2.6 2.5 - 4.5 mg/dL CERNER MILLENNIUM Blood specimen (specimen) 04/27/2011 8:50 PM EST 04/27/2011 9:20 PM EST Juvenal Lea MD CHEMISTRY ORDERABLES Performing Organization Address [facility] de Phone Number CERJING MILLENNIUM * (ABNORMAL) Magnesium (04/27/2011 8:50 PM EST) Magnesium 0.66(L) 0.69 - 1.07 mmol/L CERNER MILLENNIUM Blood specimen (specimen) 04/27/2011 8:50 PM EST 04/27/2011 9:20 PM EST Juvenal Lea MD CHEMISTRY ORDERABLES [facility]ER MILLENNIUM * (ABNORMAL) Basic Metabolic Panel (non-fasting) (04/27/2011 8:50 PM EST) Glucose 73 60 - 199 mg/dL [facility] Comment:Diabetes: >=200 mg/d L plus symptoms Blood Urea Nitrogen 3(L) 8 - 18 mg/dL CERNER MILLENNIUM Creatinine 0.36(L) 0.70 - 1.20 mg/dL CERNER MILLENNIUM Sodium 136 135 - 145 mmol/L CERNER MILLENNIUM Potassium 4.0 3.5 - 5.0 mmol/L CERNER MILLENNIUM Comment: Please note: ??Patients with WBC >100,000 may have falsely elevated Potassium levels. ??For accurate Potassium quantification in these patients send serum separator tube (gold top) for subsequent determinations. ??Contact the Clinical Chemistry Laboratory if there are any questions. Chloride 100 98 - 107 mmol/L CERNER MILLENNIUM Carbon Dioxide 26 22 - 31 mmol/L CERNER MILLENNIUM Anion Gap 10 5 - 15 mmol/L CERNER MILLENNIUM Calcium 8.8 8.5 - 10.5 mg/dL CERNER MILLENNIUM Est Glomerular Filtration Rate >60 >=60 CERNER MILLENNIUM Comment: The National Kidney Disease Education Program (NKDEP) has recommended all laboratories report estimated GFR (eGFR) along with plasma creatinine measurements to assist you with recognition of early kidney disease. Caveats: ??Plasma creatinine should be at steady-state (unchanged within the past week). For patients multiply eGFR by 1.2. The MDRD equation has not been validated for pediatric patients and is only valid for patients with age >= 18 years. At present, NKDEP does NOT recommend using the MDRD equation for drug dosing purposes and pharmacists should continue to use their current dosing methods. In addition, numerical eGFR values greater than 60 ml/min/1.73 square meters should be treated as > 60, and not an exact number due to greater inaccuracies at these higher values. Per NKDEP, they classify normal renal function as any GFR >60ml/min/1.73 square meters; chronic kidney disease when GFR <60, and renal failure when GFR <15. ??This calculation may not be valid for patients with atypical muscle mass (very lean or obese), acute renal failure, and in patients with diabetic kidney disease. References: http://nkdep.nih.gov/resources/NKDEP_Suggestn4Labs_0606_508.pdf http://www.kidney.org/professionals/kls/pdf/faq_gfr.pdf Blood specimen (specimen) 04/27/2011 8:50 PM EST 04/27/2011 9:20 PM EST Juvenal Lea MD CHEMISTRY ORDERABLES CERNER MILLENNIUM * (ABNORMAL) CBC (with Diff) (04/27/2011 8:50 PM EST) White Blood Cell 7.0 4.0 - 10.0 x10(3)/mc L CERNER MILLENNIUM Red Blood Cell 3.52(L) 3.93 - 5.22 x10(6)/mc L CERNER MILLENNIUM Hemoglobin 11.0(L) 11.2 - 15.7 gm/dL CERNER MILLENNIUM Hematocrit 32.0(L) 34.0 - 45.0 % CERNER MILLENNIUM Mean Cell Volume 90.9 79.0 - 94.0 fL CERNER MILLENNIUM Mean Cell Hemoglobin 31.3 26.6 - 32.2 pg CERNER MILLENNIUM Mean Cell Hemoglobin Concentration 34.4 32.0 - 36.5 gm/dL CERNER MILLENNIUM Platelet 211 145 - 370 x10(3)/mc L CERNER MILLENNIUM RDW Standard Deviation 42.3 35.0 - 46.0 fL CERNER MILLENNIUM RDW coefficient of variation 12.8 10.9 - 14.4 % CERNER MILLENNIUM Mean Platelet Volume 10.1 9.0 - 12.0 fL MENDEL AVERY Blood specimen (specimen) 04/27/2011 8:50 PM EST 04/27/2011 9:20 PM EST Juvenal Lea MD HEMATOLOGY ORDERABLE S MENDEL AVERY * XR CHEST PA OR AP- 1 VIEW (04/27/2011 7:31 PM EST) Anatomical Region Laterality Modality Chest N/A Radiographic Laura ging 04/27/2011 7:31 PM EST Impressions 04/28/2011 1:50 PM EST IMPRESSION: Enlarging bilateral effusions as compared to previous. Patchy nodular opacities in the right upper lobe predominant and some streaky densities in the left upper lobe suggest multifocal pneumonia. No pneumothorax. Narrative 04/28/2011 1:50 PM EST AP PORTABLE CHEST: HISTORY: ??A 40 -year-old female with resolving pancreatitis. Now with hypoxia. Please evaluate chest. COMPARISON: ??04/25/11 and 04/24/11 outside imaging. FINDINGS: ??There are numerous chest wall surgical clips projected over the right and left chest. Mild scoliotic curvature to spine rightward. There are [id number] bilateral effusions, left greater than right. There is patchy nodular airspace opacity in the right upper and left upper lobe, consistent with airspace infiltrate. ?? Procedure Note Yoana Charles MD - 04/28/2011 AP PORTABLE CHEST: HISTORY: A 40 -year-old female with resolving pancreatitis. Now withhypoxia. Please evaluate chest. COMPARISON: 04/25/11 and 04/24/11 outside imaging. FINDINGS: There are numerous chest wall surgical clips projected over the right and left chest. Mild scoliotic curvature to spine rightward. Thereare [id number] bilateral effusions, left greater than right. There ispatchy nodular airspace opacity in the right upper and left upper lobe,consistent with airspace infiltrate. IMPRESSION IMPRESSION: Enlarging bilateral effusions as compared to previous. Patchy nodularopacities in the right upper lobe predominant and some streaky densities in the left upper lobe suggest multifocal pneumonia. No pneumothorax. Constance Rahman MD IMG DX ORDERABLES * (ABNORMAL) BLOOD GAS ARTERIAL (04/27/2011 7:15 PM EST) pH, Arterial 7.35 7.35 - 7.45 CERNER MILLENNIUM PCO2, Arterial 47(H) 35 - 45 mmHg CERNER MILLENNIUM PO2, Arterial 76(L) 85 - 104 mmHg CERNER MILLENNIUM Bicarbonate, Arterial 25.2 20.0 - 26.0 mmol/L CERNER MILLENNIUM Base Excess, Arterial -0.4 -3.0 - 3.0 mmol/L CERNER MILLENNIUM Hgb Blood Gas 12.2 11.2 - 15.7 gm/dL CERNER MILLENNIUM Comment: Total Hemoglobin (in gm/dL) [place] [facility] [place] ranges: ?Age ?Reference Range Less than 3 days ?14.5 to 22.5 3 days to 2 weeks ? 12.5 to 20.5 2 weeks to 1 month ?10.0 to 18.0 1 to 6 months ?9.4 to 14.0 6 months to 2 years ? 10.5 to 13.5 2 to 6 years ?11.5 to 13.5 6 to 12 years ? 11.5 to 15.5 12 to 18 years (female) 12.0 to 16.0 ? (male) ?? 13.0 to 16.0 > 18 years ? (female) 11.2 to 15.7 ? (male) ?? 13.7 to 17.5 Oxyhemoglobin, Arterial 93.6(L) 94.0 - 97.0 % CERNER MILLENNIUM Carboxyhemoglob in, Arterial 1.4 % CERNER MILLENNIUM Comment: Nonsmokers: ??0.5-1.5% COHB Smokers: ??Variable, but usually less than 10% Toxic: 20 - 30% COHB Lethal: ??Greater than 60% COHB Methemoglobin, Arterial 0.3 <=1.5 % CERNER MILLENNIUM Na Whole Blood 134(L) 135 - 145 mmol/L CERNER MILLENNIUM K Whole Blood 4.1 3.5 - 5.0 mmol/L CERNER MILLENNIUM Comment: Please note: ??Patients with WBC >100,000 may have falsely elevated Potassium levels. ??Contact the Clinical Chemistry Laboratory if there are any questions. ICa Whole Blood 1.20 1.15 - 1.33 mmol/L CERNER MILLENNIUM Comment: Reference Ranges: ?? < 19 yrs: 1.22 - 1.37 mmol/L ? Adults: 1.15 - 1.33 mmol/L Note: ??Total bilirubin higher than 20 mg/dL may lead to falsely low ionized calcium. CL Whole Blood 101 98 - 107 mmol/L CERNER MILLENNIUM Gluc Whole Bld 73 60 - 199 mg/dL CERNER MILLENNIUM Comment:Diabetes: >= 200 mg/ dL plus symptoms. Lactate WB 0.7 0.5 - 2.2 mmol/L CERNER MILLENNIUM Blood specimen (specimen) 04/27/2011 7:15 PM EST 04/27/2011 7:28 PM EST Juvenal Lea MD CHEMISTRY ORDERABLES CERNER MILLENNIUM * EKG 12 Lead (04/27/2011 6:31 PM EST) Ventricular rate 95 BPM MUSE SYSTEM Atrial Rate 95 BPM MUSE SYSTEM P-R Interval 108 ms MUSE SYSTEM QRS Duration 84 ms MUSE SYSTEM Q-T Interval 334 ms MUSE SYSTEM QTC Calculated (Bezet) 419 ms MUSE SYSTEM Calculated P [place] 60 degrees MUSE SYSTEM Calculated R [place] 67 degrees MUSE SYSTEM Calculated T [place] 52 degrees MUSE SYSTEM INTERPRETATION Sinus rhythm with short OK T wave abnormality, consider anterior ischemia Abnormal ECG When compared with ECG of 01-NOV-2008 08:34, Non-specific change in ST segment in Lateral leads T wave inversion no longer evident in Inferior leads T wave inversion now evident in Anterior leads Nonspecific T wave abnormality no longer evident in Lateral leads Confirmed by MD Loredo Timothy ([id number]) on 04/27/2011 7:45:33 PM MUSE SYSTEM 04/27/2011 6:31 PM EST 04/27/2011 7:45 PM EST Juvenal Lea MD ECG ORDERABLES MUSE SYSTEM * (ABNORMAL) Urinalysis with microscopic (04/27/2011 6:11 PM EST) Glucose, Urine Dipstick Negative Negative mg/dL CERNER MILLENNIUM Protein, Urine Dipstick Trace(A) Neg mg/dL CERNER MILLENNIUM Bilirubin, Urine Dipstick Negative Negative mg/dL CERNER MILLENNIUM Urobilinogen, Urine Dipstick Normal mg/dL CERNER MILLENNIUM pH, Urn (dipstick) 6.0 5.0 - 8.0 CERNER MILLENNIUM Blood, Urine Dipstick Negative mg/dL CERNER MILLENNIUM Ketone, Urine Dipstick 150(Critical ) Neg mg/dL CERNER MILLENNIUM Comment:Glucose negative Nitrite, Urine Dipstick Negative CERNER MILLENNIUM Leukocytes, Urine Dipstick Negative mcL CERNER MILLENNIUM Appearance, Urine Dipstick Clear Clear CERNER MILLENNIUM Specific [place] Urine Automated 1.013 1.002 - 1.030 CERNER MILLENNIUM Color, Urine Dipstick Yellow Yellow CERNER MILLENNIUM RBC, Urine Not Present 0 - 4 CERNER MILLENNIUM WBC, Urine 1 0 - 5 /HPF CERNER MILLENNIUM Urine specimen (specimen) 04/27/2011 6:11 PM EST 04/27/2011 6:26 PM EST Juvenal Lea MD URINE ORDERABLES Performing Organization Address City/[facility]/ZIP Co de Phone Number CERNER [facility] * FILM LIBRARY- STORAGE ONLY CT ABDOMEN & PELVIS (04/24/2011 7:53 PM EST) 04/24/2011 7:53 PM EST Narrative RAD - 08/20/2013 1:45 PM EDT This is a non-reportable exam. Procedure Note Fuentes Puente - 08/20/2013 This is a non-reportable exam. Constance Rahman MD IM FILM LIBRARY ORD ERABLES [facility] RAD [id number] [place] [address] documented in this encounter Visit Diagnoses Diagnosis Breast cancer Malignant neoplasm of breast (female), unspecified site documented in this encounter Administered Medications Inactive Administered Medications - up to 3 most recent administrations Medication Order MAR Action Action Date Dose Rate Site acetaminophen (TYLENOL) tablet 650 mg 650 mg, Oral, EVERY 6 HOURS, First dose (after last modification) on Mon04/28/11 at 1930, Until Discontinued, Maximum dose of acetaminophen is 4000 mg from all sources in 24 hours., Routine Given 04/29/2011 3:34 AM EST 650 mg Given 04/28/2011 8:16 PM EST 650 mg dextrose 5% and sodium chloride 0.45% infusion 100 mL/hr, Intravenous, CONTINUOUS, Starting on Mon04/27/11 at 1830, Until Mon04/29/11 at 1323 New Bag 04/28/2011 8:13 PM EST 100 mL/hr 100 mL/hr New Bag 04/28/2011 4:00 AM EST 125 mL/hr 125 mL/hr New Bag 04/27/2011 8:24 PM EST 125 mL/hr 125 mL/hr enoxaparin (LOVENOX) injection 40 mg 40 mg, Subcutaneous, DAILY, First dose on Mon04/27/11 at 1830, Until Discontinued, Routine Given 04/30/2011 9:55 AM EST 40 mg Given 04/29/2011 9:00 AM EST 40 mg Given 04/28/2011 9:00 AM EST 40 mg esomeprazole (NEXIUM) capsule 40 mg 40 mg, Oral, DAILY, First dose on Mon04/30/11 at 0900, Until Discontinued, Routine Given 04/30/2011 9:55 AM EST 40 mg esomeprazole (NEXIUM) injection 40 mg 40 mg, Intravenous, DAILY, First dose on Kelly 04/28/11 at 1915, Until Discontinued Given 04/29/2011 9:00 AM EST 40 mg Given 04/28/2011 8:15 PM EST 40 mg HYDROmorphone (DILAUDID) 1 mg/mL DISPATCHER TOW TRUCK 30 mL Intravenous, DISP[employer]OW [employer] ONLY, Starting on Mon04/27/11 at 1830, Until Mon04/29/11 at 0824 New Syringe/Cartridge 04/27/2011 8:23 PM EST mL/hr ibuprofen (ADVIL;MOTRIN) tablet 600 mg 600 mg, Oral, EVERY 6 HOURS, First dose (after last modification) on Kelly 04/28/11 at 1930, Until Discontinued, Maximum dose of 3200 mg from all sources in 24 hours, Routine Given 04/29/2011 1:30 PM EST 600 mg Given 04/29/2011 7:30 AM EST 600 mg Given 04/29/2011 3:35 AM EST 600 mg iohexol (OMNIPAQUE) 350 mg/mL injection 33,250 mg 33,250 mg (95 mL), Intravenous, ONCE PRN, 1 dose, Starting on Mon04/27/11 at 2127, Until Mon04/27/11 at 2154, Per Protocol, Routine Given 04/27/2011 9:54 PM EST 33,250 mg lidocaine (XYLOCAINE) 10 mg/mL (1 %) injection 100 mg 100 mg, Subcutaneous, ONCE, 1 dose, On [facility] 04/28/11 at 1315, Routine Given 04/28/2011 1:15 PM EST 100 mg lidocaine (XYLOCAINE) 10 mg/mL (1 %) injection 1 dose, Starting on Kelly 04/28/11 at 1259, Until Mon04/28/11 at 1300, DASIA DILLARD: Cabinet Override Given 04/28/2011 1:00 PM EST mg potassium chloride 20 mEq in 100 mL 20 mEq, Intravenous, EVERY 2 HOURS, 2 doses, First dose on Kelly 04/28/11 at 0900, Last dose on Mon04/28/11 at 1000, Administer over 60 Minutes Given 04/28/2011 10:00 AM EST 20 mEq 100 mL/hr Given 04/28/2011 9:00 AM EST 20 mEq 100 mL/hr senna-docusate (PERICOLACE) 8.6-50 mg per tablet 1-4 tablet 1-4 tablet, Oral, 2 TIMES DAILY, First dose on Mon04/27/11 at 2100, Until Discontinued, Start with 1 tablet or liquid equivalent orally twice daily and titrate up to achieve: 1. One bowel movement at least every 48 hours, AND 2. Without straining, Routine Given 04/29/2011 9:00 PM EST 2 tablets Given 04/29/2011 9:00 AM EST 1 tablet Given 04/28/2011 9:00 AM EST 2 tablets sodium chloride 0.9 % flush 5 mL 5 mL, Intravenous, EVERY 12 HOURS, First dose on Mon04/27/11 at 1830, Until Discontinued Given 04/30/2011 6:30 AM EST 5 mLs Given 04/29/2011 6:30 PM EST 5 mLs Given 04/29/2011 6:30 AM EST 5 mLs documented in this encounter Active and Recently Administered Medications Times are shown in EST. Scheduled Medication Order 04/28/2011 04/29/2011 04/30/2011 acetaminophen (TYLENOL) tablet 650 mg (CANCELED) 650 mg, Oral, EVERY 6 HOURS, First dose (after last modification) on Kelly 04/28/11 at 1930, Until Discontinued, Maximum dose of acetaminophen is 4000 mg from all sources in 24 hours., Routine 2016 (Given - Provider: Lori Reinoso RN) 0334 (Given - Provider: Lori Reinoso RN - Comment: pt asked not to bwe awoken for this med but to wait for her to awake herself)0730 (Not Given - Provider: Aiden Mac RN - Reason: See comment - Comment: ibuprofen admin)1330 (Not Given - Provider: Aiden Mac RN - Reason: See comment - Comment: see alternative)1930 (Not Given - Provider: Aiden Mac RN - Reason: See comment - Comment: see alternate) 0130 (Not Given - Provider: Lori Reinoso RN - Reason: See comment - Comment: pt states she did not want to be awoken but would call if had CALDERON)0730 (Not Given - Provider: Jayy Gonzales RN - Reason: Medication Discontinued) enoxaparin (LOVENOX) injection 40 mg (CANCELED) 40 mg, Subcutaneous, DAILY, First dose on Mon04/27/11 at 1830, Until Discontinued, Routine 0900 (Given - Provider: Dasia Dillard RN) 0900 (Given - Provider: Aiden Mac RN) 0955 (Given - Provider: Jayy Gonzales RN) esomeprazole (NEXIUM) capsule 40 mg (CANCELED) 40 mg, Oral, DAILY, First dose on Mon04/30/11 at 0900, Until Discontinued, Routine 0955 (Given - Provider: Jayy Gonzales RN) esomeprazole (NEXIUM) injection 40 mg (CANCELED) 40 mg, Intravenous, DAILY, First dose on Kelly 04/28/11 at 1915, Until Discontinued 2014 (Given - Provider: Lori Reinoso RN) 0900 (Given - Provider: Aiden Mac RN) ibuprofen (ADVIL;MOTRIN) tablet 600 mg (CANCELED) 600 mg, Oral, EVERY 6 HOURS, First dose (after last modification) on Kelly 04/28/11 at 1930, Until Discontinued, Maximum dose of 3200 mg from all sources in 24 hours, Routine 1930 (Given - Provider: Lori Reinoso RN) 0335 (Given - Provider: Lori Reinoso RN)0730 (Given - Provider: Aiden Mac RN)1330 (Given - Provider: Aiden Mac RN)1930 (Not Given - Provider: Aiden Mac RN - Reason: Entered in Error) 0130 (Not Given - Provider: Lori Reinoso RN - Reason: See comment - Comment: pt didn't want to be awakened, stated she would call if in pain)0730 (Not Given - Provider: Jayy Gonzales RN - Reason: Medication Discontinued) lidocaine (XYLOCAINE) 10 mg/mL (1 %) injection 100 mg (COMPLETED) 100 mg, Subcutaneous, ONCE, 1 dose, On Kelly 04/28/11 at 1315, Routine 1315 (Given - Provider: Dasia Dillard RN) potassium chloride 20 mEq in 100 mL (COMPLETED) 20 mEq, Intravenous, EVERY 2 HOURS, 2 doses, First dose on Kelly 04/28/11 at 0900, Last dose on Mon04/28/11 at 1000, Administer over 60 Minutes 0900 (Given - Provider: Dasia Dillard RN)1000 (Given - Provider: Dasia Dillard RN) senna-docusate (PERICOLACE) 8.6-50 mg per tablet 1-4 tablet (CANCELED) 1-4 tablet, Oral, 2 TIMES DAILY, First dose on Mon04/27/11 at 2100, Until Discontinued, Start with 1 tablet or liquid equivalent orally twice daily and titrate up to achieve: 1. One bowel movement at least every 48 hours, AND 2. Without straining, Routine 0900 (Given - Provider: Dasia Dillard RN)2100 (Not Given - Provider: Lori Reinoso RN - Reason: Patient/family refused) 0900 (Given - Provider: Aiden Mac RN)2100 (Given - Provider: Lori Reinoso RN) 0900 (Not Given - Provider: Jayy Gonzales RN - Reason: Patient/family refused) sodium chloride 0.9 % flush 5 mL (CANCELED) 5 mL, Intravenous, EVERY 12 HOURS, First dose on Mon04/27/11 at 1830, Until Discontinued 0630 (Given - Provider: Maria C Senior RN)1830 (Given - Provider: Lori Reinoso RN) 0630 (Given - Provider: Lori Reinoso RN)1830 (Given - Provider: Aiden Mac RN) 0630 (Given - Provider: Lori Reinoso RN) Continuous Medication Order 04/28/2011 04/29/2011 04/30/2011 dextrose 5% and sodium chloride 0.45% infusion (CANCELED) 100 mL/hr, Intravenous, CONTINUOUS, Starting on Mon04/27/11 at 1830, Until Mon04/29/11 at 1323 0400 (New Bag - Provider: Maria C Senior RN)2012 (New Bag - Provider: Lori Reinoso RN) PRN Medication Order 04/28/2011 04/29/2011 04/30/2011 acetaminophen (TYLENOL) tablet 650 mg 650 mg, Oral, EVERY 6 HOURS PRN, Starting on 04/30/11 at 0816, Until 04/30/11 at 1715, Pain, Maximum dose of acetaminophen is 4000 mg from all sources in 24 hours., Routine ibuprofen (ADVIL;MOTRIN) tablet 600 mg 600 mg, Oral, EVERY 6 HOURS PRN, Starting on 04/30/11 at 0816, Until 04/30/11 at 1715, Pain, Maximum dose of 3200 mg from all sources in 24 hours, Routine No Frequency Medication Order 04/28/2011 04/29/2011 04/30/2011 lidocaine (XYLOCAINE) 10 mg/mL (1 %) injection (COMPLETED) 1 dose, Starting on Kelly 04/28/11 at 1259, Until Kelly 04/28/11 at 1300, DASIA DILLARD: Cabinet Override 1300 (Given - Provider: Dasia Dillard RN) documented in this encounter Care Teams Bulk Loader Relationship Specialty Start Date End Date Marlon Levine MD [address] [place] [address] PCP - General 02/16/10 06/19/12 documented as of this encounter
--- OUTSIDE RECORDS SUMMARY | 2023-11-09 16:23 | XMS_ITS | Encounter Summary ---
Author Organization Formerly [facility] [place] [address] Care Team Providers Care Installer Molding [employer] Trim Name Role Phone Marlon Levine MD Primary Care Provider + [phone] Reason for Visit * Reason Comments Breast Mass Encounter Details Date Type Department Care Team (Late st Contact Info) Description 11/21/2012 9:15 AM EDT Follow-[place] [address] Ana Lilia Soria [facility]ENC[facility]ER [facility] [place] [address] Mass (Primary Dx) Discharge Disposition: Home Social History [...] as of this encounter Progress Notes * Ana Lilia Soria, MUSHTAQ - 11/21/2012 9:53 AM EDT Antonia is a 42-year-old pt of Dr Joe who presents today for evaluation of a painful and enlarging mass in the upper central portion of her left reconstructed breast. She has been aware of her symptoms for about a week. She was initially diagnosed with a left breast cancer in 2004. She was treated with a lumpectomy and axillary lymph node dissection. 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 Resection margins were negative. Ten lymph nodes were negative. Thetumor was ER/MA-negative and HER2-negative. Antonia went on to adjuvant chemotherapy under the guidance of Dr. John Beltran. She was treated with four cycles of dose- dense AC followed by two cycles of Taxol. She developed extreme peripheral neuropathy and therefore completed Taxol early in July 2005. She was then treated with adjuvant whole-breast irradiation therapy. She has been followed with screening mammograms and MRI. Her MRI in July 2007 revealed a new lesion in the upper outer right (contralateral) breast. This underwent MRI-guided biopsy, which revealed fibrocystic change. Followup MRI was obtained in December 2007, which showed a persistent lesion. Giventhe concern of a discordant pathologic result, she underwent excision on 01/23/08 which revealed: ---Pathologic Diagnosis--- Specimen (s): Breast, right, needle localization excision Histologic Type: Invasive ductal carcinoma with clear cell and metaplastic spindle cell features Tumor Grade: High Kwfihm-Phqiz-Qcsezmbjtv Score: 8 Tubular Differentiation: 3 Mitotic Rate: 2 Nuclear Grade: 3 Tumor Size: 1.5 cm (maximum diameter) In Situ Histologic Type: DCIS Extensive/Minor Component: Minor Grade: High Necrosis: Present (Present / Absent) Pattern(s): Solid with extensive lobular extension Microcalcifications: N/A Resection Margins (RM): Invasive Ca (distance, RM): 0.12 cm to orange/cranial RM (A3) DCIS (distance, RM): 0.10 cm to orange/cranial RM (A4) 0.21 cm to green/caudal RM (A4) Angiolymphatic Invasion: Not identified Perineural Invasion: Not identified Nipple Involvement: NA Correlation Biopsies/Cytology Needle bx [id number], 08/07/07. 2005-left breast excision [id number]. Other findings: NA Estrogen/Progestin receptors: Performed on block A4 ER immunoreactivity: Negative (see Diagnostic del toro*) MA immunoreactivity: Negative (see Diagnostic del toro*) HER2 negative Abbott node excision was without evidence of metastatic disease. She underwent chemotherapy and then returned to the OR for b/l mastectomy with immediate reconstruction with ALT flaps. Physical Examination: On exam, Antonia is well appearing and in no apparent distress. She is anicteric and nontoxic. There is no cervical, supraclavicular or axillary adenopathy bilaterally. Bilateral reconstructed breasts with well healed mastectomy flaps. No palpable masses on the right. On the left at 1200 along the chest wall, there is a large,tender prominent mass vs island of muscle. Assessment and Plan: Antonia is a 42-year-old female with a history of stage II infiltrating ductal carcinoma of the left breast,and stage I IDC of the right breast. New tender mound of tissue vs mas.Will need to rule out local recurrance. US to be done. I will call Antonia after imaging. May need Plastics referral if imaging is negative. She agrees. documented in this encounter Plan of Treatment Not on file documented as of this encounter Results * Mammo breast US unilateral bilateral (11/23/2012 3:28 PM EDT) Anatomical Region Laterality Modality Breast N/A Mammography 11/23/2012 3:28 PM EDT Impressions 11/28/2012 8:02 AM EDT IMPRESSION: ?? NEGATIVE Left breast ultrasound (BIRADS Category 1). Clinical follow-up with Tari Soria NP recommended. ?? Preliminary report E-mailed to Tari Soria NP on 11/27/12. Narrative 11/28/2012 8:02 AM EDT LEFT BREAST ULTRASOUND ON 11/23/12: ?? CLINICAL INDICATION: Patient is status-post bilateral mastectomy and breast reconstruction for recurrent Left breast cancer. She presents with tender mass like area in the upper central Left breast. ?? FINDINGS: Ultrasound targeted to the area of clinical concern at 1200, 5cm from the nipple demonstrates normal fatty tissue. No abnormality is seen. ?? Procedure Note Leonel Dickerson MD - 11/28/2012 LEFT BREAST ULTRASOUND ON 11/23/12: CLINICAL INDICATION: Patient is status-post bilateral mastectomy andbreast reconstruction for recurrent Left breast cancer. She presents with tendermass like area in the upper central Left breast. FINDINGS: Ultrasound targeted to the area of clinical concern at 1200, 5cmfrom the nipple demonstrates normal fatty tissue. No abnormality is seen. IMPRESSION IMPRESSION: NEGATIVE Left breast ultrasound (BIRADS Category 1). Clinical follow-upwith Tari Soria NP recommended. Preliminary report E-mailed to Tari Soria NP on 11/27/12. Margarita Joe MD IMG MAMMO ORDERABLE S documented in this encounter Visit Diagnoses Diagnosis Mass- Primary Localized superficial swelling, mass, or lump Mass Localized superficial swelling, mass, or lump documented in this encounter Care Teams Installer Molding [employer] Trim Relationship Specialty Start Date End Date Marlon Levine MD [address] [place] [address] PCP - General 06/20/12 documented as of this encounter
--- OUTSIDE RECORDS SUMMARY | 2023-11-09 16:23 | XMS_ITS | Encounter Summary ---
Author Organization [facility] [place] [address] Care Team Providers Care Police Sergeant [employer]inct Name Role Phone Marlon Levine MD Primary Care Provider + [phone] Encounter Details Date Type Department Care Team (Late st Contact Info) Description 10/30/2012 2:15 PM EDT [place] [address] Erick Marx MD [facility] [place] [address] Migraine (Primary Dx); Visual complaint Discharge Disposition: Home Social History Tobacco Use [...] Sign Reading Time Taken Comments Blood Pressure 120/81 10/30/2012 2:29 PM EDT Pulse 78 10/30/2012 2:29 PM EDT Temperature - - Respiratory Rate - - Oxygen Saturation - - Inhaled Oxygen Concentration - - Weight 88.5 kg (195 lb) 10/30/2012 2:29 PM EDT Height 175.3 cm (5' 9) 10/30/2012 2:29 PM EDT Body Mass Index 28.8 10/30/2012 2:29 PM EDT documented in this encounter Progress Notes * Erick Marx MD - 10/30/2012 2:59 PM EDT I am seeing Antonia Lance in followup. Since I saw her on August 10 she has been doing well with respect to her headaches. She started the vitamin B2. She is taking 200 mg in the morning. When she took 200 in the evening it led to some difficulty sleeping. She finds it has reduced her headaches; she has now one about once every week and a half or so. She will take Tylenol; it is usually helpful but wonders if there is something else she can take. She again still has the issue where if she focuses on an image sometimes it feels like her right eye will want to cross. Again she had not really noticed it until she saw an tutoring manager locally for her headaches and then was noted to have an esotropia of unclear etiology. Past medical history includes history of bilateral breast cancer. She completed chemotherapy in 2008, has had bilateral prophylactic mastectomy with staged breast reduction. She has seen Dr. Beltran with no evidence of recurrent disease. History of pancreatitis in the past, unclear etiology. Obstructive sleep apnea, recent diagnosis, just started CPAP. Medications: Tylenol 650 mg p.r.n.; Flonase, Valtrex 500 mg three times a day; vitamin B2 200 mg daily. Family History: Of note, her daughter has a long history of migraines since she was young. Social History: She lives with her . Her daughter goes to college. 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 She does not smoke, does not drink alcohol. On focused neurological exam, Mental Status: She is alert, oriented, attentive to questions. Speech is fluent and goal directed. Repeat Cranial Nerve Testing: Pupils equal, round, and reactive to light. On primary gaze there was no evidence of esotropia, and extraocular muscles were intact. There was a few beats of nystagmus on lateral gaze. Some mildly hypometric saccades at times. At one point, though, with checking confrontation it did lead to a transient esotropia of the right eye. Of note, she does have some slight double vision on lateral gaze to the right and then also to the left, which was horizontal. Some mild double vision on upgaze, which had been noted previously. Again her double vision does go away when she closes either eye. Gait is normal. Assessment: Antonia Lance is a 41-year-old female with a history since the fall of 2011 of headaches that she describes as more of an intermittent eye pain. It was not daily, which was reassuring. She had some similar history of pain as a teenager, although not in the interim. As mentioned in previous note, clinical picture did suggest a migraine variant. She had a noncontrast brain MRI reported as normal. She has had a history of breast cancer, although finished treatment a few years ago and has done well and followed up with Oncology for that. She has done well with vitamin B2 with significant improvement of her headaches. It is still unclear what to make of these visual complaints and the esotropia noted. She has had a normal TSH. Plan: 1. She will continue vitamin B2 200 mg daily. We did discuss she could end up increasing to 400 in the morning and that likely would not cause sleep issues, but she would like to stay on the current dose, as she is doing well on that. For acute treatment instead of Tylenol she can try Aleve the 220 mg tablets, two tablets twice a day as needed, and she knows to use it not much more than two days per week, which would not be an issue due to the infrequency of her headaches. 2. Could always consider adding magnesium oxide for this, 500 mg daily, although she has been doing well on the vitamin B2. 3. We discussed from previous note that could consider a trial of propranolol at a low dose in the future, although that has not been needed. 4. With respect to the mild eye symptoms, those have not worsened. It is unclear why she has these intermittent esotropia and some of the double vision. Again there is unremarkable brain MRI. She has an appointment with Ophthalmology pending. As mentioned in previous note, could consider acetylcholine receptor antibody, although she has no ptosis, no other weakness, and it seems quite low yield at this point. MRI of orbits could be considered. Again we will await Ophthalmology evaluation. 5. I will plan to see her in followup in six months' time, sooner if needed. At least 15 minutes of this 25-minute office followup was dedicated to counseling or in discussion of migraine variant, also discussion of eye complaints as above, including diagnosis management. documented in this encounter Plan of Treatment Not on file documented as of this encounter Visit Diagnoses Diagnosis Migraine- Primary Migraine, unspecified, without mention of intractable migraine without mention of status migrainosus Visual complaint Other ill-defined disorder of eye documented in this encounter Care Teams Police Sergeant [employer] Relationship Specialty Start Date End Date Marlon Levine MD [address] [place] [address] PCP - General 06/20/12 documented as of this encounter
--- OUTSIDE RECORDS SUMMARY | 2023-11-09 16:23 | XMS_ITS | Encounter Summary ---
Author Organization [facility] Address [facility] [place] [address] Care Team Providers Care Rn Occupational Name Role Phone Marlon Levine MD Primary Care Provider [phone] Reason for Referral * Consultation (Routine) - Complete-Ref Provider Notified Specialty Diagnoses / Procedures Referred By Mateo sims Referred To Contact Ophthalmology Diagnoses Esotropia Erick Marx MD [facility] [place] [address] Maria C Gomez MD [facility] [place] [address] Referral ID Status Reason Start Date Expiration Date Visits Requested Visits Authorized [id number] Complete-Ref Provider Notified Consult, Test & Treat 08/09/2012 02/05/2013 1 1 Encounter Details Date Type Department Care Team (Late st Contact Info) Description 08/09/2012 12:45 PM EDT [place] [address] Erick Marx MD [facility] [place] [address] Migraine (Primary Dx); Esotropia Discharge Disposition: Home Social History Tobacco Use [...] Sign Reading Time Taken Comments Blood Pressure 135/84 08/09/2012 12:50 PM EDT Pulse 91 08/09/2012 12:50 PM EDT Temperature - - Respiratory Rate - - Oxygen Saturation - - Inhaled Oxygen Concentration - - Weight 90.7 kg (200 lb) 08/09/2012 12:50 PM EDT reported Height 175.3 cm (5' 9) 08/09/2012 12:50 PM EDT reported Body Mass Index 29.53 08/09/2012 12:50 PM EDT documented in this encounter Progress Notes * Erick Marx MD - 08/09/2012 1:59 PM EDT I was asked to see Antonia Lance at the request of Judy Hawthorne for the evaluation of headaches. Antonia is a 41-year-old female who is accompanied by her today. She states that she has been having headaches since around November. They are not daily, although they do occur several days a week. She said they tend to be more of an eye pain and behind her eyes. She does find that eye movement at times can aggravate it. She does not get any nausea. She does not have any vomiting. She denies any clear throbbing with it. She does find that rest and sleep can help. Ibuprofen also can help. Again, she does not have them every day. She does get them a few days a week. She can get some light sensitivity. She is not sure if activity aggravates them. She says they are generally moderate around 6/10. She does recall having head pain/eye pain as a teenager for about a year. She used to take ibuprofen/Tylenol. She was told they were migraines; she did not have any problems with headaches after that up until last fall except for some occasional mild headaches. She denies any positive visual phenomena. She denies any double vision; although she does mention that she notes if she focuses on image, sometimes it feels like her right eye will want to cross. She did not really notice that really until she saw an radiation control worker locally for headaches, and she was noted to have an esotropia of unclear etiology. She denies any double vision, speech issues, swallowing issues, focal weakness, focal sensory problems, or gait issues. She has not had any recent blood work. She did have an MRI of her brain and I do not have the images although the report does mention that it is normal; it was a noncontrast MRI. Past Medical History: History of bilateral breast cancer. She completed chemotherapy 2008. She bedtime had bilateral prophylactic mastectomy with staged breast reduction. She sees Dr. Beltran. She has had no evidence of recurrence of disease. History of pancreatitis in the past, unclear etiology. Current Outpatient Prescriptions on File Prior to Visit Medication Sig Dispense Refill ??? ibuprofen (ADVIL;MOTRIN) 800 mg tablet Take 1 tablet by mouth 3 times daily as needed. ??? fluticasone (FLONASE) 50 mcg/actuation nasal spray 2 sprays daily. ??? valACYclovir (VALTREX) 500 mg tablet Take 500 mg by mouth 3 times daily. ??? acetaminophen (TYLENOL) 325 mg tablet Take 650 mg by mouth every 6 hours as needed. Allergies: Entered into [employer]. Allergies Allergen Reactions ??? Adhesive Tape Rash ??? Azithromycin Hives ??? Chlorhexidine Gluconate Rash Family History: Of note, her daughter has a long history of migraine since she has been young. Social History: She lives with her . Her daughter goes to college. 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 She does not smoke. She does not drink alcohol. Review of Systems: As per history of presenting illness. Of note, she denies any vertigo. She does mention some weight gain without increased appetite. She has noted some decrease in smell over the last two years and also taste in the last year. She also notes some fatigue. She does snore. She has daytime sleepiness. She is supposed to get a sleep evaluation next week at [facility]. Otherwise negative. In general, she appears in no distress. Vital Signs: Reviewed. Blood pressure is 135/84, pulse 91. HEENT: Mucous membranes moist, sclerae anicteric, oropharynx clear. Cardiovascular: Heart is regular rate and rhythm, S1, S2, no murmurs, no peripheral edema. Respiratory: Lungs are clear to auscultation bilaterally. Musculoskeletal: See neurological exam. Skin: No rashes. Neurological: Mental Status: She is alert, oriented, attentive to questions. Speech is fluent and goal directed. Cranial Nerve Testing: Visual peters full to confrontation. Pupils equal, round, reactive to light. On primary gaze, there was an intermittent left eye esotropia. Extraocular muscles were intact. Normal eye movements on duction testing. No nystagmus. Saccades, though, did appear to be at times mildly hypometric. She did also endorse some double vision and lateral gaze on the right and then also to the left, which was horizontal. She also notes some double vision, which is diagonal when she looks up. Funduscopy exam revealed sharp discs bilaterally. This did go away when she closed either eye. Normal facial sensation and strength, tongue midline. Palate elevates normally. Normal neck strength. Motor Exam: There are no wasting or fasciculations. Tone is normal. There is some pronator drift on the right. Power is 5/5 throughout. Reflexes 2/4 throughout. Coordination: Normal kwzdfx-lpon-khqyvg and uasc-trzd-ibwc testing. Sensory exam is intact to light touch in the upper and lower extremities as well as vibration. Gait is normal including tandem. Romberg negative. Imaging Data: See history of presenting illness regarding recent unremarkable brain MRI, although I do not have the images. Per report it is normal. It was done at [facility] on June 19. Assessment: Antonia Lance is a 41-year-old female with a history since the fall of last year of headaches but she describes more as intermittent eye pain. It is not daily, which is reassuring. She has had some history of some similar pain many years ago as a teenager although not in the interim. The clinical picture does suggest a migraine variant, although it is not completely clear. It is unclear if her mild esotropia and eye findings are in any way playing a role in her headaches. However, again, the intermittent nature of her headaches would make that less likely. Her neurological exam is otherwise unremarkable except for a mild pronator drift, and it is unclear what to make of that. She had a recent brain MRI that was normal, although it was noncontrast. She does have a history of breast cancer although finished treatment a few years ago and has done well and followed up with Oncology for that. Plan: Will check a TSH in the context of the increased headaches, some of the eye complaints, and her increased fatigue and weight gain. Will let her know if the results are abnormal and then send the results over to her PCP's office for treatment if needed if she is hypothyroid. She does, of note, have a sleep evaluation pending. I think that will be useful. If she does have obstructive sleep apnea and it is treated, it may improve her fatigue and also may improve her headache. With respect to the smell and taste problem, it would be reasonable for an ENT referral. They would likely see Dr. Vogt. I would defer to their PCP for referral for that. With respect to headache treatment, we discussed prescription and nonprescription options. She would like to try vitamin B2 and will try that at 200 mg twice a day to see how she does. She can add magnesium oxide 500 mg daily, as well, to her regimen depending on how she is doing. If she does not respond to the supplements, it would be reasonable to try propranolol starting at 10 mg b.i.d. and then increasing in a week to 20 mg b.i.d. with further titration from there if needed. We did discuss that if needed if she is having worsening vision symptoms or worsening headaches, getting contrast on her MRI study may be reasonable; although, again, her MRI report without contrast was reassuring. I will also request her MRI images sent over here. MRI of the orbits could also be considered if needed. I could also consider acetylcholine-receptor antibodies, although she does not have any ptosis and no other weakness and would seem low yield at this point. I will see her in followup in about three months' time, sooner if needed. I will also make a referral to Dr. Gomez in the context of her visual complaints and eye findings. She did see Optometry locally, but according to the patient there was not any clear cause for it. documented in this encounter Miscellaneous Notes * Addendum Note - Yaa Wang - 08/09/2012 2:16 PM EDTAddended by: YAA WANG on: 08/09/2012 02:16 PM Modules accepted: Orders documented in this encounter Plan of Treatment Scheduled Referrals Name Type Priority Associated Diagnoses Order Schedule Referral to Ophthalmology Outpatient Referral Routine Esotropia Ordered: 08/09/2012 documented as of this encounter Procedures Procedure Name Priority Date/Time Associated Diagnosis Comments TSH Routine 08/09/2012 2:22 PM EDT Migraine documented in this encounter Results * TSH (08/09/2012 2:22 PM EDT) Thyroid Stimulating Hormone 1.50 0.27 - 4.20 mcIU/mL MENDEL BARRYDANII Blood specimen (specimen) 08/09/2012 2:22 PM EDT 08/09/2012 2:30 PM EDT Narrative Resulting Agency Comment Spec In Lab Erick Marx MD CHEMISTRY ORDERABLES MENDEL AVERY documented in this encounter Visit Diagnoses Diagnosis Migraine- Primary Migraine, unspecified, without mention of intractable migraine without mention of status migrainosus Esotropia Esotropia, unspecified documented in this encounter Care Teams Rn Occupational Relationship Specialty Start Date End Date Marlon Levine MD [address] [place] [address] PCP - General 06/20/12 documented as of this encounter
--- OUTSIDE RECORDS SUMMARY | 2023-11-09 16:23 | XMS_ITS | Encounter Summary ---
Author Organization [facility] [place] [address] Care Team Providers Care Staff Sonographer Name Role Phone Marlon Levine MD Primary Care Provider + [phone] Reason for Visit * Reason Onset Date Comments Other 11/20/2012 breast changes Encounter Details Date Type Department Care Team (Late st Contact Info) Description 11/20/2012 Telephone Hematology Oncology at [address] [phone] Cyndy Falcon, RN Other (breast changes) Social History Tobacco Use Types Packs/Day Years [...] encounter Miscellaneous Notes * Telephone Encounter - Cyndy Falcon RN - 11/20/2012 2:48 PM EDT Patient called to report changes in her upper outer quadrant of her breast. Patient's last visit toDr. Beltran on 10/19 states: Breast exam: She has fullness in the upper outer quadrant of each breast which is diffuse and symmetric and felt likely to be related to the reconstruction. No discrete masses noted. Patient states now there is one side that is getting bigger, and is very sore. States the discomfort is constant, is aggravated by palpation and even wearing her bra. Denies redness. States she is very anxious about this. Informed Dr. Beltran - he states that at this point it is probably a good idea for patient to go see her surgeon, Dr. Joe. TC back to patient to instruct - patient agreeable to plan and will call today. documented in this encounter Plan of Treatment Not on file documented as of this encounter Visit Diagnoses Not on filedocumented in this encounter Care Teams Staff Sonographer Relationship Specialty Start Date End Date Marlon Levine MD [address] [place] [address] PCP - General 06/20/12 documented as of this encounter
--- OUTSIDE RECORDS SUMMARY | 2023-11-09 16:23 | XMS_ITS | Encounter Summary ---
Author Organization [facility] Address [facility] [place] [address] Care Team Providers Care Cdl Program Coordinator Name Role Phone Marlon Levine MD Primary Care Provider [phone] Encounter Details Date Type Department Care Team (Late st Contact Info) Description 09/20/2011 2:00 PM EDT Follow-Up Hematology Oncology at [address] [phone] John Beltran MD [facility] [place] [address] Breast cancer (Primary Dx) Discharge Disposition: Home Social [...] Sign Reading Time Taken Comments Blood Pressure 129/81 09/20/2011 2:10 PM EDT Pulse 84 09/20/2011 2:10 PM EDT Temperature 36.9 ??C (98.4 ??F) 09/20/2011 2:10 PM ED T Respiratory Rate 18 09/20/2011 2:10 PM EDT Oxygen Saturation 99% 09/20/2011 2:10 PM EDT Inhaled Oxygen Concentration - - Weight 79 kg (174 lb 2.6 oz) 09/20/2011 2:10 PM EDT Height 175.3 cm (5' 9.02) 09/20/2011 2:10 PM ED T Body Mass Index 25.71 09/20/2011 2:10 PM EDT documented in this encounter Progress Notes * John Beltran MD - 09/20/2011 2:04 PM EDT Subjective: Patient ID: Antonia Lance is a 41 y.o. female. Problem List: 1. Cancer of the left breast, T2, N0, M0. A. Dx'd 01/29, s/p lumpectomy and ALND. Path-2.5-cm infiltrating ductal carcinoma, SBR score of 8. Final margins of resection were negative. Ten LNs were seen, all negative. ER/MT negative. HER2/cynthia negative. B. Four cycles of [...] There was no ALI or perineural invasion. ER/MT negative. HER2/cynthia negative by FISH. B. In [...] screening for BRCA-1 and 2, negative. 5. History of rectal fissure. 6. Status post tubal ligation and reversal. HPI Ms. Lance returns in f/u of bilateral breast cancer as above. It has been about three years since she completed adjuvant chemotherapy for the second cancer, which was of the right breast. She has undergone bilateral mastectomy with reconstruction. On presentation today, she feels well. 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 Her energy level is good. She does self exam of the reconstructed breasts and has not noted any areas of concern. She was recently in the ED at [facility] with abrasions on her knees and there was concern for infection. She has been cleaning them with soap and water and they are much better now. She really has no specific complaints today. Review of Systems Constitutional: Negative. HENT: Negative. [...] and no mass. There is no hepatosplenomegaly. No tenderness. She has no guarding. Genitourinary: Breast exam: She has fullness in the [...] Assessment and Plan: Ms. Lance is a 41-year-old female with a history of bilateral breast cancer as above. It has been three years since completion of adjuvant chemotherapy. Clinically, she appears to be doing well without evidence of disease recurrence. No further intervention is planned at this time. We will plan to see her back in 6 months, sooner if needed. documented in this encounter Plan of Treatment Not on file documented as of this encounter Visit Diagnoses Diagnosis Breast cancer- Primary Malignant neoplasm of breast (female), unspecified site documented in this encounter Care Teams Cdl Program Coordinator Relationship Specialty Start Date End Date Marlon Levine MD [address] [place] [address] PCP - General 02/16/10 06/19/12 documented as of this encounter
--- OUTSIDE RECORDS SUMMARY | 2023-11-09 16:23 | XMS_ITS | Encounter Summary ---
Author Organization [facility] [place] [address] Care Team Providers Care Weatherization Technician Name Role Phone Marlon Levine MD Primary Care Provider + [phone] Reason for Visit * Reason Onset Date Comments Follow-up 11/29/2012 Encounter Details Date Type Department Care Team (Late st Contact Info) Description 11/29/2012 Telephone [place] [phone] Ana Lilia Soria APRN [facility] [place] [address] Follow-up Social History Tobacco Use Types Packs/Day [...] - Ana Lilia Soria APRN - 11/29/2012 7:55 AM EDT I called Antonia to discuss follow up after her US performed showed no abnormalities. I have left her two messages asking her to call me if she would like [facility]. I have left her my number asking her to call me. documented in this encounter Plan of Treatment Not on file documented as of this encounter Visit Diagnoses Not on filedocumented in this encounter Care Teams Weatherization Technician Relationship Specialty Start Date End Date Abner, Marlon H, MD [address] [place] [address] PCP - General 06/20/12 documented as of this encounter
--- OUTSIDE RECORDS SUMMARY | 2023-11-09 16:23 | XMS_ITS | Encounter Summary ---
Author Organization [facility] [place] [address] Care Team Providers Care Document Advisor Name Role Phone Marlon Levine MD Primary Care Provider + [phone] Encounter Details Date Type Department Care Team (Late st Contact Info) Description 06/24/2013 Telephone [place] [phone] Elena Graham, RN Social History Tobacco Use Types Packs/Day [...] Miscellaneous Notes * Telephone Encounter - Elena Peng, MICHELET - 06/24/2013 3:27 PM EDT Antonia called reporting that she has a CT and EGD scheduled for July 25, but is in more pain than when she was seen on Monday by Dr Chen. She drinks water and has stomach pain. She is eating mostly meat (steak, hamburger and chicken) and vegetables. Staying away from starches. Dicyclomine lasting about 90 minutes before it wears off. Pt asking to have EGD and CT earlier than July 25. Plan: Instructed pt to eat less red meat and if wanting meat to eat more chicken or fish Will review with Dr Chen: Can you please put this patient on Dr. Kamara's consult endo for Monday, July 01 at 1pm and call her to let her know about it? She will need a CT abdomen after that, so can you pass that onto Sarika? Thanks! Pt notified. Endo scheduling team will call pt Pt very thankful documented in this encounter Plan of Treatment Not on file documented as of this encounter Visit Diagnoses Not on filedocumented in this encounter Care Teams Document Advisor Relationship Specialty Start Date End Date Marlon Levine MD [address] [place] [address] PCP - General 06/20/12 documented as of this encounter
--- OUTSIDE RECORDS SUMMARY | 2023-11-09 16:23 | XMS_ITS | Encounter Summary ---
Author Organization [facility] Address [facility] [place] [address] Care Team Providers Care Deckhand Engineer Name Role Phone Marlon Levine MD Primary Care Provider + [phone] Encounter Details Date Type Department Care Team (Late st Contact Info) Description 04/21/2011 Orders [place] [phone] Jc Carpenter MD [facility] [place] [address] Social History Tobacco Use Types Packs/Day Years Used Date Smoking Tobacco: Never Sex and Gender Information Value Date Recorded Sex Assigned at Not on file Gender Identity Not on file Sexual Orientation Not on file documented as of this encounter Plan of Treatment Not on file documented as of this encounter Procedures Procedure Name Priority Date/Time Associated Diagnosis Comments FILM LIBRARY STORAGE ONLY DX CHEST Routine 04/21/2011 8:02 PM EST documented in this encounter Results * FILM LIBRARY- STORAGE ONLY DX CHEST (04/21/2011 8:02 PM EST) 04/21/2011 8:02 PM EST Narrative RAD - 08/20/2013 1:45 PM EDT This is a non-reportable exam. Procedure Note Fuentes Puente - 08/20/2013 This is a non-reportable exam. Jc Carpenter MD IMG FILM LIBRARY ORD ERABLES [facility] [address] [facility] [place] [address] documented in this encounter Visit Diagnoses Not on filedocumented in this encounter Care Teams Deckhand Engineer Relationship Specialty Start Date End Date Marlon Levine MD [address] [place] [address] PCP - General 02/16/10 06/19/12 documented as of this encounter
--- OUTSIDE RECORDS SUMMARY | 2023-11-09 16:23 | XMS_ITS | Encounter Summary ---
Author Organization [facility] [place] [address] Care Team Providers Care Commissioned Fire Officer Name Role Phone Marlon Levine MD Primary Care Provider [phone] Reason for Referral * Consultation (Routine) - Closed Specialty Diagnoses / Procedures Referred By Mateo sims Referred To Contact Hematology and Oncology Diagnoses Breast cancer, female, unspecified laterality John Beltran MD [facility] [place] [place] [address] [place] [address] Referral ID Status Reason Start Date Expiration Date V isits Requested Visits Authorized [id number] Closed Consult, Test & Treat 04/19/2013 10/16/2013 1 1 Encounter Details Date Type Department Care Team (Late st Contact Info) Description 04/19/2013 3:30 PM EST Follow-Up Hematology Oncology at [address] [phone] John Beltran MD [facility] [place] [address] Breast cancer, female, unspecified laterality (Primary Dx) Discharge Disposition: Home Social History [...] Sign Reading Time Taken Comments Blood Pressure 141/93 04/19/2013 3:24 PM EST Pulse 80 04/19/2013 3:24 PM EST Temperature 36.6 ??C (97.9 ??F) 04/19/2013 3:24 PM ES T Respiratory Rate 18 04/19/2013 3:24 PM EST Oxygen Saturation 98% 04/19/2013 3:24 PM EST Inhaled Oxygen Concentration - - Weight 76 kg (167 lb 8 oz) 04/19/2013 3:24 PM ES T Height - - Body Mass Index 24.74 10/30/2012 2:29 PM EDT documented in this encounter Progress Notes * John Beltran MD - 04/19/2013 9:47 AM EST Subjective: Patient ID: Antonia Lance is a 42 y.o. female. Problem List: 1. Cancer of the left breast, T2, N0, M0. A. Dx'd 01/29, s/p lumpectomy and ALND. Path-2.5-cm infiltrating ductal carcinoma, SBR score of 8. Final margins of resection were negative. Ten LNs were seen, all negative. ER/ND negative. HER2/cynthia negative. B. Four cycles of [...] There was no ALI or perineural invasion. ER/ND negative. HER2/cynthia negative by FISH. B. In [...] cancer as above. It has been over four years since shecompleted adjuvant chemotherapy for the second cancer, which was of the right breast. She has undergone bilateral mastectomy with reconstruction. On presentation today, she feels well. She has lost quite a bit of weight. This began when she was going through a difficult personal time. However, she is pleased about the weight loss and has made some dietary changes to try to maintain it where it is. Her energy level is good. She has no particular areas of pain. Things in her personal life are good now and she is very happy. She has noted some changes in the reconstructed breasts since she has lost the weight and would like this checked. She has a sister with stage IV breast cancer. She has another sister who recently had a breast bx which showed atypical ductal hyperplasia. Her sister's physicians have apparently discussed prophylactic [...] Assessment and Plan: Ms. Lance is a 42 year-old female with a history of bilateral breast cancer as above. It has been almost five years since completion of adjuvant chemotherapy. Clinically, she appears to be doing wellwithout evidence of disease recurrence. No further intervention is planned at this time. We will plan to see her back in 6 months, sooner if needed. The primary concern discussed today relates to the personal and family history of breast cancer. Asnoted above, she has a sister who lives in [place] and unfortunately has stage IV breast cancer. Both the patient and this sister have had BRCA testing and that is negative. Another sister recently had a breast bx showing atypical lobular hyperplasia. There was not evidence of DCIS. This sister's physicians have apparently discussed bilateral prophylactic mastectomy and oophorectomy with her although I am not aware that she has had any genetic testing done. This has raised the question for the pt of whether she should be thinking about further intervention such as oophorectomy. We do not havea finding in her case to suggest an increased risk of ovarian cancer such as a BRCA mutation and the patient is not anxious for another procedure. We could consider periodic transvaginal US. However,I think it would make sense for her to be seen by the Familial Cancer Program again to see if thereis other testing that would be recommended. I will make that referral. documented in this encounter Procedure Notes * Provider, Scanning - 06/19/2013 2:47 PM EDTAssociated Order(s): SCAN DOC: DIAGNOSTIC RADIOLOGY documented in this encounter Plan of Treatment Scheduled Referrals Name Type Priority Associated Diagnoses Orde r Schedule Referral to Familial Cancer Outpatient Referral Routine Breast Cancer, Female, Unspecified Laterality Ordered: 04/19/2013 documented as of this encounter Procedures Procedure Name Priority Date/Time Associated Diagnosis Comments DIAGNOSTIC RADIOLOGY SCAN 06/19/2013 2:47 PM EDT documented in this encounter Results * SCAN DOC: DIAGNOSTIC RADIOLOGY (06/19/2013 2:47 PM EDT) Anatomical Region Laterality Modality Other Narrative 06/19/2013 3:22 PM EDT Procedure Note Provider, Scanning - 06/19/2013 2:47 PM EDT Scanning Provider MEDIA MGR SCAN EXT O RDR/RSLT documented in this encounter Visit Diagnoses Diagnosis Breast cancer, female, unspecified laterality- Primary documented in this encounter Care Teams Commissioned Fire Officer Relationship Specialty Start Date End Date Marlon Levine MD [address] [place] [address] PCP - General 06/20/12 documented as of this encounter
--- OUTSIDE RECORDS SUMMARY | 2023-11-09 16:23 | XMS_ITS | Encounter Summary ---
Author Organization Formerly [facility] [place] [address] Care Team Providers Care Neonatologist Name Role Phone Marlon Levine MD Primary Care Provider + [phone] Reason for Visit * Reason Comments GI Problem Encounter Details Date Type Department Care Team (Late st Contact Info) Description 05/18/2011 10:00 AM EST Office [place] [address] Jonathan Roman MD [facility] [address] [place] [address] Pancreatitis (Primary Dx) Discharge Disposition: Home Social History Tobacco Use Types Packs/Day Years Used Date Smoking Tobacco: Never Sex and Gender Information Value Date Recorded Sex Assigned at Not on file Gender Identity Not on file Sexual Orientation Not on file documented as of this encounter Last Filed Vital Signs Vital Sign Reading Time Taken Comments Blood Pressure 130/90 05/18/2011 9:59 AM EST Pulse 60 05/18/2011 9:59 AM EST Temperature - - Respiratory Rate - - Oxygen Saturation - - Inhaled Oxygen Concentration - - Weight 75.7 kg (166 lb 12.8 oz) 05/18/2011 9:59 AM EST Height 175.3 cm (5' 9) 05/18/2011 9:59 AM EST Body Mass Index 24.63 05/18/2011 9:59 AM EST documented in this encounter Patient Instructions * Patient Instructions* Jonathan Roman - 05/18/2011 11:16 AM EST - we will check lab work today - we will schedule you for an MRI and Endoscopic Ultrasound - we will schedule you for follow up in [address] Roman documented in this encounter Progress Notes * Zach Paulson MD - 06/10/2011 9:24 AM EDT Please refer to Dr. Roman's note for details of this visit. I independently interviewed and examined Ms. Lance and I confirm Dr. Roman's history and physical exam as documented in his note. The diagnostic and therapeutic plan was discussed and I agree with the plan of care. * Jonathan Roman - 05/18/2011 10:09 AM EST Gastroenterology and Hepatology Initial Consultation Note Referring Provider: MARLON LEVINE MD Reason for consultation: Pancreatitis History of Present Illness: Today I have the pleasure of seeing Ms. Antonia Lance per request of Dr. Levine for evaluation of recent pancreatitis. History is obtained by way of patient interview as well as review of available medical records. Ms. Lance is a 40 year old female with medical history pertinent for breast cancer without known recurrence to date, who reports she was in her usual state of health until late January 2011. At thattime she reports developing some vague discomfort in her RLQ which was associated at that time withher menstrual cycle. Over approximately 10 days time Ms. Lance noted some gradual migration of painto right lateral umbilicus. The next day, Ms. Lance reports relatively acute worsening of pain in her epigastrium. She reports severe sharp pain in her epigastrium which radiatated to her left upper quadrant without associated nausea or vomiting. She was evaluated at [facility] for these symptoms with labs revealing lipase 53,322, Albumin 4.1, Tb 1.9, Alk Phos 154, AST 318, ALT 414. A CT demonstrated aprominent pancreatic head with peripancreatic stranding consistent with pancreatitis with an otherwise normal biliary tree. Ms. Lance was admitted to [facility] for approximately one week and eventually transferred to [facility] for failure to improve. While at [facility] she underwent RUQ US which demonstrated no evidence of choledocholithiasis and otherwise normal biliary tree. Lab testing was notable for elevated LFTs as above, normal calcium, normal triglycerides. History is additionally notable for the absence of alcohol use, absence of any trauma, recent travel, recent new meds or herbals, or any prior personal history of pancreatitis. Upon transfer to [facility], a CT PE protocol as obtained given tachypnea, hypoxia, and tachycardia which demonstrated no evidence of PE, did demonstrate bilateral pleural effusions related to recent pancreatitis. She eventually improved with ongoing supportive care including IV fluids, analgesia. Repeat LFTs at [facility] were notably normal Since transfer Ms. Lance reports slow resolution of pain but she continues to have residual symptoms. She reports epigastric pain which will occasionally wake her from her sleep, 5/10 in intensity, although she is usually able to fall back asleep. Ms. Lance reports some post-prandial discomfort, not elliot pain, but reports instead post-prandial pressure with associated early satiety. She has beeneating frequent small low fat meals with reasonable tolerance. She reports 10 pound weight loss since symptom onset, although stable over last 2 weeks. Of note, Ms. Lance had lost 20 pounds prior to her symptom onset which she reports was intentional. Past Medical History: #. Breast Cancer - first diagnosed 2005 left breast - treated with lumpectomy with chemo/XRT Faustin Gilberto in [facility] - experienced recurrence in approximately 2008 on right side, underwent bilateral mastectomy and repeat chemotherapy, completed 2008 - TRAM reconstruction - BRCA-1+2 negative - currently followed by Dr. Beltran and Heath - currently clinically in remission #. Tubal ligation with reversal Medications: Current outpatient prescriptions ordered prior to encounter Medication Sig Dispense Refill ??? acetaminophen (TYLENOL) 325 mg tablet Take 2 tablets by mouth every 6 hours as needed for Pain.30 tablet ??? ibuprofen (ADVIL;MOTRIN) 600 mg tablet Take 1 tablet by mouth every 6 hours as needed for Pain.30 tablet Allergies: Allergies Allergen Reactions ??? Azithromycin CIS - Hives ??? Chlorhexidine Gluconate CIS - Rash ??? Adhesive Tape CIS - Rash Social History: Ms. Lance currently lives in [place], [place] with her and 17 year old daughter. 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 Etiology unknown Physical Examination: Vitals: Filed Vitals: 05/18/11 0959 BP: 130/90 Pulse: 60 General: Well-appearing, pleasant, appropriate, no distress HEENT: NCAT, EOMI, sclera anciteric Chest: CTA anterior and posterior bilaterally Cor: Regular, no murmurs Abd: Non-distended, normal bowel sounds, soft. Moderate tenderness in epigastrium with some fullness, no discrete mass. Remainder of abdomen non-tender Ext: No edema ROS: Pertinent as above Imagin04-21-2011 Abdominal ultrasound - normal liver - normal gallbladder, no gallstones visualized - CBD 4mm - normal appearing pancreas - mild splenomegaly 04-21-2011 CT Abd/Pelvis with contrast (Pain) - pancreatic enlargement in the head - infiltrative changes around the pancreas - retroperitoneal fluid - gallbladder unremarkable Assessment/Recommendation: Antonia Lance is a 40 year old female with medical history pertinent for bilateral breast cancer, BRCA negative, who is seen today after recent episode of acute pancreatitis in early March. Regarding potential etiologies a RUQ US and CT demonstrated no evidence of cholelithiasis, labs revealing normal calcium, triglycerides. There is no history of appreciable alcohol use, travel, trauma, new meds. Family history is not particularly strong for pancreatitis given 2 affected relatives from different sides of family, both > 50 and with identifiable precipitants for their attacks. I did not have full labs available at time of patient interview but receipt since that time confirms as above that LFTs were elevated at time of presentation. This does raise concern for transient biliary ductal obstruction with differential including choledocholithiasis not seen on prior imaging (or already passed), microlithiasis, or mechanical obstruction related to tumor. Although Ms. Lance is BRCA negative, given her bilateral breast cancer at a young age I would have concern for an underlying genetic susceptibility for malignancy and a thorough evaluation to exclude a neoplastic processwould be warranted. I have discussed with Ms. Lance plan for obtaining MRCP to evaluate for any sequelae related to pancreatitis such as pseudocyst given her early satiety, evaluate her underling ductal anatomy, and evaluate for any small mass lesions. Beyond this, I have recommended we additionally proceed with an EUS the same day as the MRCP to exclude any ampullary lesions or small pancreatic lesions which might be missed with other modalities. If evaluation is otherwise unrevealing, we will need to discuss risks and benefits of empiric cholecystectomy given LFT abnormalities accompanying pancreatitis on admission. - labs today - MRCP and EUS as above documented in this encounter Plan of Treatment Not on file documented as of this encounter Procedures Procedure Name Priority Date/Time Associated Diagnosis Comments TISSUE TRANSGLUTAMINASE, IGA Routine 05/18/2011 12:05 PM EST Pancreatitis IGG 4 Routine 05/18/2011 12:05 PM EST Pancreatitis TRIGLYCERIDE Routine 05/18/2011 12:05 PM EST Pancreatitis IGA Routine 05/18/2011 12:05 PM EST Pancreatitis UPPER EUS-ENDOSCOPIC ULTRASOUND Routine 05/18/2011 11:13 AM EST Pancreatitis documented in this encounter Results * MRI cholangiopancreatography (05/30/2011 1:41 PM EST) Anatomical Region Laterality Modality Magnetic Resonan ce 05/30/2011 1:41 PM EST Addenda Addendum on 07/04/2011 9:05 AM EDT Addendum Begins 3D reconstruction and post processing imaging was performed at an independent work station. ?? Addendum Ends Addendum on 07/04/2011 8:15 AM EDT Addendum Begins 3D reconstruction and post processing imaging was performed at an independent work station. ?? Addendum Ends Addendum on 06/29/2011 12:13 PM EDT Addendum Begins 3D reconstruction and post processing imaging was performed at an independent work station. ?? Addendum Ends Addendum on 06/29/2011 11:23 AM EDT Addendum Begins 3D reconstruction and post processing imaging was performed at an independent work station. ?? Addendum Ends Impressions 05/30/2011 10:14 PM EST IMPRESSION: 1. ??No evidence of choledocholithiasis. ?? 2. ??No evidence of pancreas divisum, persistent parapancreatic inflammatory changes, or pancreatic pseudocysts. ?? Film and interpretation reviewed by the attending Narrative 05/30/2011 10:14 PM EST MR CHOLANGIOPANCREATOGRAPHY: HISTORY: ??Distant history of breast cancer. ??Admitted with pancreatitis without obvious etiology. ??Now early satiety. ?? COMPARISON: ??CTs of the chest dated 04/27/11. ??CTs of the abdomen and pelvis dated 04/24/11 and 04/21/11. ?? FINDINGS: ??The liver is not enlarged. ??The liver contour is smooth. ??There is no loss of signal in the liver to suggest hepatosteatosis. ?? There is no intrahepatic or extrahepatic biliary ductal dilatation. ?? Incidentally noted is a low insertion of the cystic duct, a normal anatomic variant. ??There is no choledocholithiasis. ?? There is no cholelithiasis. ??The gallbladder appears unremarkable. ?? No parapancreatic inflammatory changes are identified. ??The pancreatic duct is not dilated. ??There is no evidence of pancreas divisum. ?? The spleen is minimally enlarged, measuring 13.2 cm in length. ?? The adrenal glands appear unremarkable. ?? The kidneys are normal in size and position without evidence of hydronephrosis. ?? No pathologically enlarged upper abdominal lymph nodes are seen. ??There is no ascites. ?? Susceptibility artifact in the left lateral chest wall is likely related to surgical clips seen on prior CT of the chest. ?? Signal emanating from bone marrow is unremarkable. ?? Procedure Note Vaishnavi Espitia MD - 07/04/2011 MR CHOLANGIOPANCREATOGRAPHY: HISTORY: Distant history of breast cancer. Admitted with pancreatitiswithout obvious etiology. Now early satiety. COMPARISON: CTs of the chest dated 04/27/11. CTs of the abdomen andpelvis dated 04/24/11 and 04/21/11. FINDINGS: The liver is not enlarged. The liver contour is smooth. Thereis no loss of signal in the liver to suggest hepatosteatosis. There is no intrahepatic or extrahepatic biliary ductal dilatation. Incidentally noted is a low insertion of the cystic duct, a normalanatomic variant. There is no choledocholithiasis. There is no cholelithiasis. The gallbladder appears unremarkable. No parapancreatic inflammatory changes are identified. The pancreaticduct is not dilated. There is no evidence of pancreas divisum. The spleen is minimally enlarged, measuring 13.2 cm in length. The adrenal glands appear unremarkable. The kidneys are normal in size and position without evidence ofhydronephrosis. No pathologically enlarged upper abdominal lymph nodes are seen. There isno ascites. Susceptibility artifact in the left lateral chest wall is likely relatedto surgical clips seen on prior CT of the chest. Signal emanating from bone marrow is unremarkable. IMPRESSION IMPRESSION: 1. No evidence of choledocholithiasis. 2. No evidence of pancreas divisum, persistent parapancreaticinflammatory changes, or pancreatic pseudocysts. Film and interpretation reviewed by the attending Zach Paulson MD IMG MRI ORDERABLES * Triglyceride (05/18/2011 12:05 PM EST) Triglyceride 72 <=149 mg/dL [facility] Comment: Reference Range: Normal triglycerides: ??<150 mg/dL Borderline high: ??150-199 mg/dL High: ??200-499 mg/dL Very high: ??>em=162 mg/dL JADON 2001; [id number] Blood specimen (specimen) 05/18/2011 12:05 PM EST 05/18/2011 12:12 PM EST Narrative Resulting Agency Comment Spec In Lab Zach Paulson MD CHEMISTRY ORDERABLES Performing Organization Address [facility] de Phone Number [facility] * IgG 4 (05/18/2011 12:05 PM EST) IgG 4 14.8 4.0 - 86.0 mg/dL [facility] Comment: Test Performed by [facility], [address] [place], [place] Deandre Dominguez M.D., Ph.D., Director of Laboratories , [place] [id number] Blood specimen (specimen) 05/18/2011 12:05 PM EST 05/18/2011 2:37 PM EST Narrative Resulting Agency Comment Spec In Lab Zach Paulson MD IMMUNOLOGY ORDERABLE S Performing Organization Address City/[facility] Co de Phone Number [facility] * IgA (05/18/2011 12:05 PM EST) IgA 215 70 - 400 mg/dL [facility] Blood specimen (specimen) 05/18/2011 12:05 PM EST 05/18/2011 12:12 PM EST Narrative Resulting Agency Comment Spec In Lab Zach Paulson MD CHEMISTRY ORDERABLES Performing Organization Address [facility] Co de Phone Number [facility] * Tissue transglutaminase, IgA (05/18/2011 12:05 PM EST) TTG IgA Ab <4.0 <=3.9 u/ml [facility] Comment: Result Interpretation: Negative: ?<4 U/mL Weak Positive: ??4-10 U/mL Positive: ?>10 U/mL Blood specimen (specimen) 05/18/2011 12:05 PM EST 05/19/2011 8:11 AM EST Narrative Resulting Agency Comment Spec In Lab Zach Paulson MD IMMUNOLOGY ORDERABLE S Performing Organization Address [facility] de Phone Number MENDEL AVERY documented in this encounter Visit Diagnoses Diagnosis Pancreatitis- Primary Acute pancreatitis Pancreatitis Acute pancreatitis documented in this encounter Care Teams Neonatologist Relationship Specialty Start Date End Date Marlon Levine MD [address] [place] [address] PCP - General 02/16/10 06/19/12 documented as of this encounter
--- OUTSIDE RECORDS SUMMARY | 2023-11-09 16:23 | XMS_ITS | Encounter Summary ---
Author Organization [facility] Address [facility] [place] [address] Care Team Providers Care Manufacturing Operations Manager Name Role Phone Marlon Levine MD Primary Care Provider [phone] Reason for Visit * Reason Comments Follow-up Encounter Details Date Type Department Care Team (Late st Contact Info) Description 03/23/2012 3:00 PM EST Follow-Up Hematology Oncology at [address] [phone] John Beltran MD [facility] [place] [address] Breast cancer (Primary Dx) Discharge Disposition: Home [...] Sign Reading Time Taken Comments Blood Pressure 132/82 03/23/2012 3:10 PM EST Pulse 101 03/23/2012 3:10 PM EST Temperature 36.7 ??C (98.1 ??F) 03/23/2012 3:10 PM ES T Respiratory Rate 18 03/23/2012 3:10 PM EST Oxygen Saturation 100% 03/23/2012 3:10 PM EST Inhaled Oxygen Concentration - - Weight - - Height - - Body Mass Index - - documented in this encounter Progress Notes * John Beltran MD - 03/23/2012 3:10 PM EST Subjective: Patient ID: Antonia Lance is a 41 y.o. female. Problem List: 1. Cancer of the left breast, T2, N0, M0. A. Dx'd 01/29, s/p lumpectomy and ALND. Path-2.5-cm infiltrating ductal carcinoma, SBR score of 8. Final margins of resection were negative. Ten LNs were seen, all negative. ER/DE negative. HER2/cynthia negative. B. Four cycles of [...] There was no ALI or perineural invasion. ER/DE negative. HER2/cynthia negative by FISH. B. In [...] 7. Status post tubal ligation and reversal. HPI Ms. Lance returns in f/u of bilateral breast cancer as above. It has been about three and a half years since she completed adjuvant chemotherapy for the second cancer, which was of the right breast. She has undergone bilateral mastectomy with reconstruction. On presentation today, she feels well. 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 No areas of pain.Her appetite is good. She was not weighed today per her request but she thinks her weight is up a few pounds. Her energy level is good. She does self exam of the reconstructed breasts and has not noted any areas of concern. She really has no specific complaints today. [...] site documented in this encounter Care Teams Manufacturing Operations Manager Relationship Specialty Start Date End Date Marlon Levine MD [address] [place] [address] PCP - General 02/16/10 06/19/12 documented as of this encounter
--- OUTSIDE RECORDS SUMMARY | 2023-11-09 16:23 | XMS_ITS | Encounter Summary ---
Author Organization [facility] [place] [address] Care Team Providers Care Accounts Receivable Accountant Name Role Phone Marlon Levine MD Primary Care Provider + [phone] Encounter Details Date Type Department Care Team (Latest Contact Info) Description 05/30/2011 12:23 PM EST - 05/30/2011 11:59 PM [facility] Hospital [place] [phone] CLINIC, Zach Lopez MD [facility] [place] [address] Pancreatitis Discharge Disposition: Home Social History Tobacco Use [...] 04/30/2011 09/20/2011 documented as of this encounter Miscellaneous Notes * Miscellaneous - Provider, Scanning - 06/06/2011 10:22 AM EDT documented in this encounter Plan of Treatment Not on file documented as of this encounter Procedures Procedure Name Priority Date/Time Associated Diagnosis Comments MRI CHOLANGIOPANCREATOGRAPHY Routine 07/2011 1:41 PM EST Pancreatitis documented in this encounter Results [...] reviewed by the attending Zach Paulson MD [facility] MRI ORDERABLES documented in this encounter Visit Diagnoses Diagnosis Pancreatitis Acute pancreatitis documented in this encounter Care Teams Accounts Receivable Accountant Relationship Specialty Start Date End Date Marlon Levine MD [address] [place] [address] PCP - General 02/16/10 06/19/12 documented as of this encounter
--- OUTSIDE RECORDS SUMMARY | 2023-11-09 16:23 | XMS_ITS | Encounter Summary ---
Author Organization [facility] [place] [address] Care Team Providers Care Economics Lecturer Name Role Phone Marlon Levine MD Primary Care Provider + [phone] Encounter Details Date Type Department Care Team (Late st Contact Info) Description 04/30/2012 Telephone [place] [phone] Ana Lilia Soria APRN [facility] [place] [address] Social History Tobacco Use Types Packs/Day Years Used Date Smoking Tobacco: Never Alcohol Use Standard Drinks/Week Comments No 0 (1 standard drink = 0.6 oz pur e alcohol) Sex and Gender Information Value Date Recorded Sex Assigned at Not on file Gender Identity Not on file Sexual Orientation Not on file documented as of this encounter Miscellaneous Notes * Telephone Encounter - Ingrid Osborn - 04/30/2012 2:40 PM EST Unable to reach this patient to schedule a follow up appointment with Ana Lilia Soria. I have mailed a reminder letter on 01/30/12 and I have left messages on 03/29/12 and 04/13 with no response from the patient so I have cancelled the reminder appointment. documented in this encounter Plan of Treatment Not on file documented as of this encounter Visit Diagnoses Not on filedocumented in this encounter Care Teams Economics Lecturer Relationship Specialty Start Date End Date Marlon Levine MD [address] [place] [address] PCP - General 02/16/10 06/19/12 documented as of this encounter
--- OUTSIDE RECORDS SUMMARY | 2023-11-09 16:23 | XMS_ITS | Encounter Summary ---
Author Organization Formerly [facility] Address [facility] [place] [address] Care Team Providers Care Circus Trainer Name Role Phone Marlon Levine MD Primary Care Provider + [phone] Encounter Details Date Type Department Care Team (Late st Contact Info) Description 04/24/2011 Orders [place] [address] Jc Carpenter MD [facility] [address] Social History Tobacco Use Types Packs/Day Years [...] FILM LIBRARY STORAGE ONLY DX CHEST Routine 04/24/2011 7:57 PM EST documented in this encounter Results * FILM LIBRARY- STORAGE ONLY DX CHEST (04/24/2011 7:57 PM EST) 04/24/2011 7:57 PM EST Narrative RAD - 08/20/2013 1:45 PM EDT This is a non-reportable exam. Procedure Note Fuentes Puente - 08/20/2013 This is a non-reportable exam. Jc Carpenter MD IMG FILM LIBRARY ORD ERABLES [facility] [address] [facility] [place] [address] documented in this encounter Visit Diagnoses Not on filedocumented in this encounter Care Teams Circus Trainer Relationship Specialty Start Date End Date Marlon Levine MD [address] [place] [address] PCP - General 02/16/10 06/19/12 documented as of this encounter
--- OUTSIDE RECORDS SUMMARY | 2023-11-09 16:23 | XMS_ITS | Encounter Summary ---
Author Organization [facility] Address [facility] [place] [address] Care Team Providers Care Sweat Box Attendant Name Role Phone Marlon Levine MD Primary Care Provider [phone] Encounter Details Date Type Department Care Team (Latest Contact Info) Description 11/23/2012 3:00 PM EDT - 11/23/2012 11:59 PM EDT Hospital [place] [id number] CLINIC, Margarita Vaughn MD [facility] [place] [address] Mass Discharge Disposition: Home Social History Tobacco Use [...] Sig Dispensed Refills Start Date End Date UNABLE TO FIND Take 100 mg by mouth daily. Vitamin B 2 - 2 tabs in the AM ibuprofen (ADVIL;MOTRIN) 800 mg tablet Take 1 tablet by mouth as needed. Reported on 05/27/2016 acetaminophen (TYLENOL) 325 mg tablet Take 650 mg by mouth every 6 hours as needed. Reported on 05/27/2016 tolterodine (DETROL LA) 4 mg 24 hr capsule Take 4 mg by mouth daily. 02/26/2013 documented as of this encounter Plan of Treatment Not on file documented as of this encounter Procedures Procedure Name Priority Date/Time Associated Diagnosis Comments MAMMO BREAST US LIMITED Routine 11/23/2012 3:28 PM EDT Mass documented in this encounter Results * Mammo breast US [...] documented in this encounter Visit Diagnoses Diagnosis Mass Localized superficial swelling, mass, or lump documented in this encounter Care Teams Sweat Box Attendant Relationship Specialty Start Date End Date Marlon Levine MD [address] [place] [address] PCP - General 06/20/12 documented as of this encounter
--- OUTSIDE RECORDS SUMMARY | 2023-11-09 16:23 | XMS_ITS | Encounter Summary ---
Author Organization [facility] Address [facility] [place] [address] Care Team Providers Care Summer Sessions Director Name Role Phone Marlon Levine MD Primary Care Provider + [phone] Reason for Visit * Reason Comments Strabismus Double vision,blurry vision,OD Encounter Details Date Type Department Care Team (Late st Contact Info) Description 11/01/2012 2:00 PM EDT Office [place] [address] Nikki Orourke MD [facility] [place] [address] Diplopia (Primary Dx); Esotropia; Accommodative spasm; Anisometropia; Myopic astigmatism Discharge Disposition: Home Social History Tobacco Use [...] as of this encounter Progress Notes * Nikki Orourke MD - 11/01/2012 6:35 PM EDT Antonia Lance is a 42 y.o. female with: 1. Variable esotropia with small angle and appearance of accommodative spasm at times with larger intermittent ET with accommodative target. No concerning features for neurologic etiology. Normal MRI. However, given variability and atypicalnature of ET, would appreciate neuro-op input. 2. Myopic astigmatism, anisometropia. Variable refractions prior to cycloplegia. May be playing a role in ET. Plan: Rx given to address anisometropia. technical support intern wear needed. No bifocals at this time. F/u in 6 weeks with EMS, SMP next available. NIKKI OROURKE MD documented in this encounter Plan of Treatment Not on file documented as of this encounter Visit Diagnoses Diagnosis Diplopia- Primary Esotropia Esotropia, unspecified Accommodative spasm Spasm of accommodation Anisometropia Myopic astigmatism Astigmatism, unspecified documented in this encounter Care Teams Summer Sessions Director Relationship Specialty Start Date End Date Marlon Levine MD [address] [place] [address] PCP - General 06/20/12 documented as of this encounter
--- OUTSIDE RECORDS SUMMARY | 2023-11-09 16:23 | XMS_ITS | Encounter Summary ---
Author Organization [facility] Address [facility] [place] [address] Care Team Providers Care Gas Turbine Powerplant Mechanic Name Role Phone Marlon Levine MD Primary Care Provider + [phone] Reason for Visit * Reason Comments Diplopia Encounter Details Date Type Department Care Team (Late st Contact Info) Description 02/26/2013 1:00 PM EST Office [place] [address] Maria C Gomez MD [facility] [address] [place] [address] Esotropia (Primary Dx) Discharge Disposition: Home Social History [...] as of this encounter Progress Notes * Maria C Gomez MD - 02/26/2013 4:59 PM EST 42 yo woman who developed an accommodative spasm clinically in 2011 in the setting of early presbyopia and previously uncorrected anisometropia. She has some visual ghosting with an accommodative esotropia at near (high AC/A). Recommend trying bifocal at this time. She has no other cranial nerve or neurologic findings concerning for other etiology. Reassurance was given and discussion occurred per the need with time for potentially increasing the strength of the bifocal. documented in this encounter Plan of Treatment Not on file documented as of this encounter Visit Diagnoses Diagnosis Esotropia- Primary Esotropia, unspecified documented in this encounter Care Teams Gas Turbine Powerplant Mechanic Relationship Specialty Start Date End Date Marlon Levine MD [address] [place] [address] PCP - General 06/20/12 documented as of this encounter
--- OUTSIDE RECORDS SUMMARY | 2023-11-09 16:23 | XMS_ITS | Encounter Summary ---
Author Organization [facility] Address [facility] [place] [address] Care Team Providers Care Cotton Broker Name Role Phone Marlon Levine MD Primary Care Provider + [phone] Encounter Details Date Type Department Care Team (Late st Contact Info) Description 04/21/2011 Orders [place] [address] Jc Carpenter MD [facility] GENER[place] [address] Social History Tobacco Use Types Packs/Day Years Used Date Smoking Tobacco: Never Sex and Gender Information Value Date Recorded Sex Assigned at Not on file Gender Identity Not on file Sexual Orientation Not on file documented as of this encounter Plan of Treatment Not on file documented as of this encounter Procedures Procedure Name Priority Date/Time Associated Diagnosis Comments FILM LIBRARY STORAGE ONLY CT ABDOMEN AND PELVIS Routine 04/21/2011 8:03 PM EST documented in this encounter Results * FILM LIBRARY- STORAGE ONLY CT ABDOMEN & PELVIS (04/21/2011 8:03 PM EST) 04/21/2011 8:03 PM EST Narrative RAD - 08/20/2013 1:45 PM EDT This is a non-reportable exam. Procedure Note Fuentes Puente - 08/20/2013 This is a non-reportable exam. Jc Carpenter MD G FILM LIBRARY ORD ERABLES [facility] [address] [place] [address] documented in this encounter Visit Diagnoses Not on filedocumented in this encounter Care Teams Cotton Broker Relationship Specialty Start Date End Date Marlon Levine MD [address] [place] [address] PCP - General 02/16/10 06/19/12 documented as of this encounter
--- OUTSIDE RECORDS SUMMARY | 2023-11-09 16:23 | XMS_ITS | Encounter Summary ---
Author Organization [facility] Address [facility] [place] [address] Care Team Providers Care Draw Hand Name Role Phone Marlon Levine MD Primary Care Provider + [phone] Encounter Details Date Type Department Care Team (Late st Contact Info) Description 04/25/2011 Orders [place] [address] Jc Carpenter MD [facility] GENERAL [place] [address] Social History Tobacco Use Types Packs/Day Years [...] FILM LIBRARY STORAGE ONLY DX CHEST Routine 04/25/2011 7:56 PM EST documented in this encounter Results * FILM LIBRARY- STORAGE ONLY DX CHEST (04/25/2011 7:56 PM EST) 04/25/2011 7:56 PM EST Narrative RAD - 08/20/2013 1:45 PM EDT This is a non-reportable exam. Procedure Note Fuentes Puente - 08/20/2013 This is a non-reportable exam. Jc Carpenter MD IMG FILM LIBRARY ORD ERABLES [facility] [address] [facility] [place] [address] documented in this encounter Visit Diagnoses Not on filedocumented in this encounter Care Teams Draw Hand Relationship Specialty Start Date End Date Marlon Levine MD [address] [place] [address] PCP - General 02/16/10 06/19/12 documented as of this encounter
--- OUTSIDE RECORDS SUMMARY | 2023-11-09 16:23 | XMS_ITS | Encounter Summary ---
Author Organization [facility] [place] [address] Care Team Providers Care Stagecraft Teacher Name Role Phone Marlon Levine MD Primary Care Provider [phone] Encounter Details Date Type Department Care Team (Late st Contact Info) Description 07/01/2013 1:00 PM EDT - 07/01/2013 1:30 PM EDT Surgery [place] [phone] Tali Kamara MD [facility] [address] EGD, UPPER GI ENDOSCOPY (WRVU 2.09) Social History Tobacco Use Types Packs/Day Years [...] Sign Reading Time Taken Comments Blood Pressure 114/77 07/01/2013 2:42 PM EDT Pulse 86 07/01/2013 2:42 PM EDT Temperature 36.5 ??C (97.7 ??F) 07/01/2013 12:05 PM E DT Respiratory Rate 16 07/01/2013 2:42 PM EDT Oxygen Saturation 99% 07/01/2013 2:42 PM EDT Inhaled Oxygen Concentration - - Weight 72.6 kg (160 lb) 07/01/2013 12:09 PM EDT Height 175.3 cm (5' 9) 07/01/2013 12:09 PM EDT Body Mass Index 23.63 07/01/2013 12:09 PM EDT documented in this encounter Discharge Instructions * Discharge Instructions* Kaitlynn Weber, RN - 07/01/2013 2:39 PM EDT UPPER GI ENDOSCOPY WHAT TO EXPECT AFTER THE PROCEDURE After the test you may feel a little more gassy or bloated than usual, this is normal. ACTIVITY Because of the sedation that you received Your judgement and reaction time are affected ?? Go home and rest quietly for the remainder of the day. You may resume your normal activities tomorrow. ?? Change from one position to the next slowly. You may lose your balance unexpectedly Be careful on stairs, as you may be unsteady on your feet. FOR THE NEXT 24 HRS ?? DO NOT DRIVE OR OPERATE ANY MACHINERY ?? DO NOT DRINK ALCOHOLIC BEVERAGES ?? DO NOT SIGN LEGAL DOCUMENTS ?? If you are a smoker: DO NOT SMOKE WHILE YOU ARE ALONE Diet ?? Start by eating small portions of foods that ordinarily will not upset your stomach. Be gentle with what you choose to start with. ?? Drink plenty of fluids ( unless otherwise told not to) Medications You may have a mild sore throat. Ice chips, popsicles, over the counter throat lozenges or spray may help numb your throat. This procedure should not cause a fever. IV SITE-- slight redness or tenderness is normal, you can use warm compresses if you get concerned.If the tenderness +/or redness increases or foul drainage and a red streak occurs, please contact your PCP immediately. WHEN SHOULD YOU CALL FOR HELP? Call 911 anytime you think that you need emergency care. For example, call if: You passed out (lost consciousness). You cough up blood. You vomit blood or what looks like coffee grounds. You pass maroon or very bloody stools. Call your healthcare provider or seek immediate medical attention if: You have trouble swallowing. You have belly pain. Your stools are black or tarlike or have streaks of blood. You are sick to your stomach or cannot keep fluids down. Watch closely for changes in your health, and be sure to contact your doctor IF Your throat still hurts after a day or two You do not get better as expected. Monday-Monday Clinic [phone] 8a-5p Same Day Endo [phone] 7a-8p Otherwise contact [phone] and ask to speak to the receiving teller nurse companion Follow-up care is a del toro part of your treatment and safety. Be sure to make and go to all appointments, and call your doctor if you are having problems. Instructions have been reviewed and patient expresses understanding documented in this encounter Medications at Time [...] 06/21/2013 11/22/2013 documented as of this encounter H&P Notes * Tari Chen MD - 07/01/2013 12:36 PM EDT Gastroenterology and Hepatology Pre-Procedure History and Physical Exam Procedure: EGD: Indication: Dyspepsia with weight loss Patient Active Problem List Diagnosis Code ??? Breast cancer 174.9 ??? Pleural effusion 511.9 ??? Pancreatitis 577.0 ??? 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 Neurodermatitis 698.3 ??? Migraine 346.90 ??? Mass 782.2 ??? Esotropia 378.00 EXAM: BP 119/84 Pulse 64 Temp 36.5 ??C (97.7 ??F) (Oral) Resp 18 Ht 175.3 cm (5' 9) Wt 72.576 kg (160 lb) BMI 23.62 kg/m2 SpO2 100% HEENT: Airway examined, oropharynx clear LUNGS: Clear to auscultation HEART: Regular rate and rhythm, normal S1, S2 ABDOMEN: Normal bowel sounds, soft, non tender, non distended, A/P Proceed with the planned endoscopic procedure. Risks and benefits of the procedure explained to the patient. Consent signed. documented in this encounter Procedure Notes * Kaitlynn Weber RN - 07/01/2013 3:18 PM EDT Pt's IV flushed & capped prior to pt leaving endoscopy recovery for CT scan. documented in this encounter Miscellaneous Notes * Miscellaneous - Provider, Scanning - 07/01/2013 9:38 PM EDT * Miscellaneous - Provider, Scanning - 07/01/2013 9:38 PM EDT * Miscellaneous - Provider, Scanning - 07/01/2013 2:53 PM EDT documented in this encounter Plan of Treatment Not on file documented as of this encounter Procedures Procedure Name Priority Date/Time Associated Diagnosis Comments SPECIMEN TO PATHOLOGY Routine 07/01/2013 2:37 PM EDT EGD, UPPER GI ENDOSCOPY (WRVU 2.09) 07/01/2013 2:11 PM EDT Weight loss UPPER GI ENDOSCOPY Routine 07/01/2013 2: 09 PM EDT documented in this encounter Results * Specimen to Pathology (surgical or derm) (07/01/2013 2:37 PM EDT) AP Specimen 07/01/2013 2:37 PM EDT 07/01/2013 2:37 PM EDT [facility] - 07/01/2013 2:37 PM EDT Specimen requisition ordered. ??Separate Pathology report to follow Tali Kamara MD PATHOLOGY/CYTOLOGY [facility] * UPPER GI ENDOSCOPY (07/01/2013 2:09 PM EDT) UPPER GI ENDOSCOPY [facility] Endoscopy Patient Name: Antonia Lance ? Procedure Date: 07/01/2013 2:09 PM ? N: [id number] ? Date of : 1970 ? Age: 42 ? Order #: [id number] ? Procedure: ? Upper GI endoscopy Indications: ? Epigastric abdominal pain Providers: ? Tali Kamara MD, Tari Chen MD, ? Suraj Silva, RN, Nayla Torres. ? Rubens Referring : ?Marlon Levine MD Medicines: ? Propofol per Anesthesia Complications: ? No immediate complications. Procedure: ? Pre-Anesthesia Assessment: ? - Prior to the procedure, a History ? and Physical was performed, and ? patient medications, allergies and ? sensitivities were reviewed. The ? patient's tolerance of previous ? anesthesia was reviewed. ? - The risks and benefits of the ? procedure and the sedation options ? and risks were discussed with the ? patient. All questions were answered ? and informed consent was obtained. ? The procedure, indications, benefits, ? risks and alternatives were explained ? to the patient. Specifically ? discussed were potential ? complications including, but not ? limited to, bleeding, perforation, ? infection, missing a cancer, and ? adverse medication reactions. The ? Endoscope was introduced through the ? mouth, and advanced to the third part ? of duodenum. The patient tolerated ? the procedure well. The upper GI ? endoscopy was accomplished without ? difficulty. The patient tolerated the ? procedure well. ? Findings: ? A small hiatus hernia was present. ? The Z-line was regular and was found 40 cm from the ? incisors. ? Multiple dispersed medium-sized erosions were found ? in the gastric antrum. Biopsies were taken with a ? cold forceps for histology. ? Many non-bleeding superficial duodenal ulcers with no ? stigmata of bleeding were found in the duodenal bulb ? and in the first part of the duodenum. The largest ? lesion was 5 mm in largest dimension. ? Impression: ?- Hiatus hernia. ? - Z-line regular, 40 cm from the ? incisors. ? - Erosive gastropathy. Biopsied. ? - Multiple duodenal ulcers with clean ? base. Recommendation: ?Await pathology results. ? Start PPI. ? Tali Kamara MD 07/01/2013 2:38 PM This report has been signed electronically. Number of Addenda: 0 Note Initiated On: 07/01/2013 2:09 PM [employer]ATION 07/01/2013 2:09 PM EDT Marlon Levine MD GENERAL SURGICAL ORD ERABLES [employer] documented in this encounter Visit Diagnoses Diagnosis Weight loss Loss of weight documented in this encounter Active and Recently Administered Medications Times are shown in EDT. Continuous Medication Order 06/29/2013 06/30/2013 07/01/2013 lactated ringers infusion (CANCELED) 100 mL/hr, Intravenous, CONTINUOUS, Starting on Mon07/01/13 at 1230, Until Mon07/01/13 at 1520, Endoscopy (Day of Procedure) 1409 (New Bag - Prov ider: Mauro Gold CRNA)1435 (Anesthesia Volume Adjustment - Provider: Mauro Gold CRNA) documented in this encounter Care Teams Stagecraft Teacher Relationship Specialty Start Date End Date Marlon Levine MD [address] [place] [address] PCP - General 06/20/12 documented as of this encounter
--- OUTSIDE RECORDS SUMMARY | 2023-11-09 16:23 | XMS_ITS | Encounter Summary ---
Author Organization [facility] [place] [address] Care Team Providers Care Loom Fixer Helper Name Role Phone Marlon Levine MD Primary Care Provider + [phone] Reason for Visit * Reason Onset Date Comments Other 05/23/2011 new symptoms Encounter Details Date Type Department Care Team (Late st Contact Info) Description 05/23/2011 Telephone [place] [id number] Natalie Tompkins RN Other (new symptoms) Social History Tobacco Use Types Packs/Day Years Used Date Smoking Tobacco: Never Sex and Gender Information Value Date Recorded Sex Assigned at Not on file Gender Identity Not on file Sexual Orientation Not on file documented as of this encounter Miscellaneous Notes * Telephone Encounter - Natalie Tompkins RN - 05/23/2011 2:40 PM EST RN returning call to patient as she has a couple questions. Patient states she has new symptoms. She continues to have heavy feeling between her navel and ribs that is a bit worse on the left and will wake her from sleep. This morning she had new sharp pain in that area that was a 6/10 with nausea and the need to move her bowels. Bowel movements over the next hour were light in color, soft, andsome floated. She has had difficulty eating much as she feels full very quickly. The sharp pain is gone and she has that heavy feeling just below her ribs and above her navel. Denies and fever. She is scheduled 3/[address] Tyler. Advised her to call if this pain recurrs and advised her to stay hyd rated, take frequent sips of liquids. Will advise Dr. Roman of her call. documented in this encounter Plan of Treatment Not on file documented as of this encounter Visit Diagnoses Not on filedocumented in this encounter Care Teams Loom Fixer Helper Relationship Specialty Start Date End Date Marlon Levine MD [address] [place] [address] PCP - General 02/16/10 06/19/12 documented as of this encounter
--- OUTSIDE RECORDS SUMMARY | 2023-11-09 16:23 | XMS_ITS | Encounter Summary ---
Author Organization [facility] Address [facility] [place] [address] Care Team Providers Care Manager Facility Name Role Phone Marlon Levine MD Primary Care Provider [phone] Encounter Details Date Type Department Care Team (Latest Contact Info) Description 05/30/2011 1:54 PM EST - 05/30/2011 7:06 PM EST Hospital Encounter Gastroenterology at [facility] [place] [address] Jag Tyler MD [facility] [place] [address] Discharge Disposition: Home Social History Tobacco Use [...] Sign Reading Time Taken Comments Blood Pressure 114/70 05/30/2011 5:25 PM EST Pulse 103 05/30/2011 5:25 PM EST Temperature 36.3 ??C (97.3 ??F) 05/30/2011 4:21 PM ES T Respiratory Rate 15 05/30/2011 5:25 PM EST Oxygen Saturation 95% 05/30/2011 5:25 PM EST Inhaled Oxygen Concentration - - Weight - - Height - - Body Mass Index - - documented in this encounter Discharge Instructions * Discharge Instructions* Meg Hugo RN - 05/30/2011 5:27 PM EST You may have received medication before and/or during your procedure which effects judgement and reaction time. Do not drive, operate machinery, drink alcoholic beverages, or make important decisions for 24 hours. Be careful on stairs, as you may be unsteady on your feet. You may eat a regular diet as tolerated. Do not smoke if you are alone. IV site-- slight redness or tenderness is normal. You may use a warm compress. If tenderness and redness increases for foul drainage occurs please contact your M.D. You can reach your doctor by calling the Pulmonary office,Monday - Monday, 8:00 am to 5:00pm, . The attendance secretary will need your name, medical problem, and date of the bronchoscopy. After 5pm call [phone] and ask for the pulmonary doctor application internship. * Patient Instructions* Jag Tyler MD - 05/30/2011 5:33 PM EST Please see Recommendations in the Provation procedure report which is documented in the procedural note in E-DH. * Attachments The following attachments cannot be sent through Care Everywhere. * UPPER GI ENDOSCOPY: WHAT TO EXPECT AT HOME (CZECH) documented in this encounter Medications at Time [...] 04/30/2011 09/20/2011 documented as of this encounter H&P Notes * Jag Tyler MD - 05/30/2011 4:00 PM EST Gastroenterology and Hepatology Pre-Procedure History and Physical Exam Procedure: EUS Indication: F/up recent pancreatitis. See OPD note (Dr. Roman). Patient Active Problem List Diagnoses Code ??? Breast cancer 174.9D ??? Pleural effusion 511.9M ??? Pancreatitis 577.0T EXAM: HEENT: Airway examined, oropharynx clear LUNGS: Clear to auscultation HEART: Regular rate and rhythm, normal S1, S2 ABDOMEN: Normal bowel sounds, soft, non tender, non distended, A/P Proceed with EUS. Risks and benefits of the procedure explained to the patient. Consent signed. documented in this encounter Miscellaneous Notes * Miscellaneous - Provider, Scanning - 05/30/2011 9:24 PM EST * Op Note - Jag Tyler MD - 05/30/2011 5:18 PM EST [facility] Operative Note Patient Name: Antonia Lance : [id number] MR#: [id number] Case Date: 05/30/2011 Surgeon: Surgeon(s) and Role: * JAG TYLER MD - Primary * ROXANA ROMAN MD Preoperative diagnosis: Idiopathic pancreatitis, history of breast cancer (MRCP PRIOR) Postoperative diagnosis: * No post-op diagnosis entered * Procedure(s): UPPER EUS- ENDOSCOPIC ULTRASOUND Full procedure note is documented under the Procedure section of eD. * Miscellaneous - Provider, Scanning - 05/30/2011 2:20 PM EST documented in this encounter Plan of Treatment Not on file documented as of this encounter Procedures Procedure Name Priority Date/Time Associated Diagnosis Comments UPPER EUS- ENDOSCOPIC ULTRASOUND (WRVU 3.47) 05/30/2011 4:53 PM EST Pancreatitis UPPER EUS-ENDOSCOPIC ULTRASOUND Routine 05/30/2011 4:42 PM EST documented in this encounter Results * UPPER EUS-ENDOSCOPIC ULTRASOUND (05/30/2011 4:42 PM EST) UPPER ENDOSCOPIC ULTRASOUND [facility] Endoscopy Patient Name: Antonia Lance ? Procedure Date: 05/30/2011 4:42 PM ? Date of : 1970 ? Age: 40 ? Order #: [id number] ? Procedure: ? Upper EUS Indications: ? Acute pancreatitis, f/up acute ? pancreatitis Providers: ? Jag Tyler MD, Martha Nava, ? RN, Ivory Eubanks, Inventory Control Planner Referring : ?Marlon Levine MD, Roxana Ojeda ? MD Abel Medicines: ? Midazolam 4 mg IV, Meperidine 150 mg ? IV, Phenergan 12.5 mg IV Complications: ? No immediate complications. Procedure: ? Pre-Anesthesia Assessment: ? - Prior to the procedure, a History ? and Physical was performed, and ? patient medications, allergies and ? sensitivities have been reviewed. The ? patient's tolerance of previous ? anesthesia has been reviewed. ? - The risks and benefits of the ? procedure and the sedation options ? and risks were discussed with the ? patient. All questions were answered ? and informed consent was obtained. ? - ASA Grade Assessment: II - A ? patient with mild systemic disease. ? The procedure, indications, benefits, ? risks and alternatives were explained ? to the patient. Specifically ? discussed were potential ? complications including, but not ? limited to, bleeding, perforation, ? infection, missing a cancer, and ? adverse medication reactions.The ? Endosonoscope was introduced through ? the mouth, and advanced to the second ? part of duodenum. The patient ? tolerated the procedure well. ? Findings: ? The examined esophagus was endoscopically normal. The ? entire examined stomach was endoscopically normal. ? The examined duodenum was endoscopically normal. The ? ampulla appeared normal.The head of pancreas was ? diffusely hypoechoic and mildly enlarged suggestive ? of residual edema/inflammation . There was no evidence ? for focal mass. There was no sign of significant ? endosonographic abnormality in the pancreatic body, ? in the pancreatic tail and in the main pancreatic ? duct (normal caliber).There was no sign of ? significant endosonographic abnormality in the common ? bile duct and in the gallbladder. Normal visualized ? portion of liver (limited exam).No lymphadenopathy ? seen. ? Impression: ?- Probable mild residual inflammation ? in the head of pancreas. ? - Otherwise normal exam. ? - No structural source for recent ? pancreatitis identified. Recommendation: ?- Observe patient's clinical course. ? - F/up in GI Clinic if symptoms ? persist or recur. ? _ Jag Tyler MD 05/30/2011 5:26 PM ? Number of Addenda: 0 Note Initiated On: 05/30/2011 4:42 PM PROVATION 05/30/2011 4:42 PM EST Marlno Levine MD GENERAL SURGICAL ORD ERABLES PROVATION documented in this encounter Visit Diagnoses Not on filedocumented in this encounter Active and Recently Administered Medications Times are shown in EST. PRN Medication Order 05/28/2011 05/29/2011 05/30/2011 meperidine (PF) (DEMEROL) 100 mg/mL carpuject (CANCELED) ONCE PRN, Starting on Mon05/30/11 at 1657, Until Mon05/30/11 at 2106, Pain, Intra-Operative (Intra-Procedure), Routine 1657 (Given - Provid er: Martha Nava RN - Comment: first dose of moderate sedation)1705 (Given - Provider: Martha Nava RN - Comment: med for sedation)1711 (Given - Provider: Martha Nava RN - Comment: med for sedation) midazolam (VERSED) injection (CANCELED) ONCE PRN, Starting on Mon05/30/11 at 1657, Until Mon05/30/11 at 2106, Sleep, Intra-Operative (Intra-Procedure), Routine 1657 (Given - Provid er: Martha Nava RN - Comment: first dose of moderate sedation)1705 (Given - Provider: Martha Nava RN - Comment: med for sedation)1711 (Given - Provider: Martha Nava RN - Comment: med for sedation) promethazine (PHENERGAN) injection (CANCELED) ONCE PRN, Nausea, Starting on Mon05/30/11 at 1655, Until Mon05/30/11 at 2106, Avoid extravasation, Intra-Operative (Intra-Procedure) 1655 (Given - Provid er: Martha Nava RN - Comment: med nausea) documented in this encounter Care Teams Manager Facility Relationship Specialty Start Date End Date Marlon Levine MD [address] [place] [address] PCP - General 02/16/10 06/19/12 documented as of this encounter
--- OUTSIDE RECORDS SUMMARY | 2023-11-09 16:23 | XMS_ITS | Encounter Summary ---
Author Organization [facility] [place] [address] Care Team Providers Care Wellness Instructor Name Role Phone Marlon Levine MD Primary Care Provider + [phone] Encounter Details Date Type Department Care Team (Late st Contact Info) Description 10/31/2012 Abstract [place] [address] Nikki Hill MD [facility] [place] [address] Social History Tobacco Use Types Packs/Day Years [...] on filedocumented in this encounter Care Teams Wellness Instructor Relationship Specialty Start Date End Date Marlon Levine MD [address] [place] [address] PCP - General 06/20/12 documented as of this encounter
--- OUTSIDE RECORDS SUMMARY | 2023-11-09 16:23 | XMS_ITS | Encounter Summary ---
Author Organization [facility] Address [facility] [place] [address] Care Team Providers Care Pad Extraction Tender Name Role Phone Marlon Levine MD Primary Care Provider + [phone] Reason for Visit * Reason Comments Dermatitis Encounter Details Date Type Department Care Team (Late st Contact Info) Description 08/17/2011 3:45 PM EDT Office Visit Dermatology [facility] [address] [place] [address] Mauro Sung MD [address], [place] [address] Halo nevus (Primary Dx); Neurodermatitis Social History Tobacco Use Types Packs/Day Years Used Date Smoking Tobacco: Never Alcohol Use Standard Drinks/Week Comments No 0 (1 standard drink = 0.6 oz pur e alcohol) Sex and Gender Information Value Date Recorded Sex Assigned at Not on file Gender Identity Not on file Sexual Orientation Not on file documented as of this encounter Progress Notes * Mauro Sung MD - 08/17/2011 4:43 PM EDT Problem: 1. Changing nevus, submandibular chin. 2. Rash, right lateral ankle. Antonia follows up after last seeing me in 2005 for perioral dermatitis. She now has had for about a year a very itchy right lateral ankle rash, which she has only been treating with [id number] emollient lotions and creams. For about six months she has had a mole on her chin about which has started to become quite itchy and about which there is a white halo. Physical examination reveals a halo nevus of the submandibular chin. The central nevus is 2 or 3 mm in diameter, and there is an additional 3-mm radius halo around it. Other nevi in the vicinity are not affected by this interesting condition. She has normal benign-appearing nevi, although some are large and of Maximiliano's type on her back. She has normal small regular junctional nevi of the arms and upper V of her chest. There is no evidence of any malignant lesions or melanoma. Examination of the right lateral ankle reveals slight hyperkeratosis arising vertically over the right lateral ankle consistent with lichen simplex chronicus/neurodermatitis. Assessment and Plan: 1. Lichen simplex chronicus/neurodermatitis. a. The patient given a prescription for betamethasone dipropionate cream to apply b.i.d. to affected area until this clears, 30 g dispensed with one refill. b. Once rash clears recommend using a good emollient cream on a regular basis to try to prevent a recurrence. c. The patient does not recall any preceding trauma, insect bite, poison salina or other dermatitis that would have been the prelude to this. 2. Halo nevus. a. The patient reassured about benign halo nevus. b. Explained the pathogenesis, the expected course for this. c. Given the benign exam results from the remainder of this patient's skin areas, do not suspect halo phenomenon due to co-existing malignancy/melanoma. Return to clinic p.r.n. Note: Explained that the autoimmune phenomenon around the halo nevus is responsible for the intermittent itching that she was experiencing and that this will in time spontaneously resolve. Copy: Marlon Levine M.D. documented in this encounter Plan of Treatment Not on file documented as of this encounter Visit Diagnoses Diagnosis Halo nevus- Primary Benign neoplasm of skin, site unspecified Neurodermatitis Lichenification and lichen simplex chronicus documented in this encounter Care Teams Pad Extraction Tender Relationship Specialty Start Date End Date Marlon Levine MD [address] [place] [address] PCP - General 02/16/10 06/19/12 documented as of this encounter
--- OUTSIDE RECORDS SUMMARY | 2023-11-09 16:23 | XMS_ITS | Encounter Summary ---
Author Organization [facility] Address [facility] [place] [address] Care Team Providers Care Roll Cleaner Name Role Phone Marlon Levine MD Primary Care Provider [phone] Reason for Visit * Reason Comments Follow-up Encounter Details Date Type Department Care Team (Late st Contact Info) Description 10/19/2012 1:00 PM EDT Follow-Up Hematology Oncology at [address] [address] John Beltran MD [facility] [place] [address] Breast cancer (Primary Dx) Discharge Disposition: Home [...] Sign Reading Time Taken Comments Blood Pressure 116/78 10/19/2012 1:22 PM EDT Pulse 105 10/19/2012 1:22 PM EDT Temperature - - Respiratory Rate 20 10/19/2012 1:22 PM EDT Oxygen Saturation 98% 10/19/2012 1:22 PM EDT Inhaled Oxygen Concentration - - Weight - - Height - - Body Mass Index - - documented in this encounter Progress Notes * John Beltran MD - 10/19/2012 12:39 PM EDT Subjective: Patient ID: Antonia Lance is a 42 y.o. female. Problem List: 1. Cancer of the left breast, T2, N0, M0. A. Dx'd 01/29, s/p lumpectomy and ALND. Path-2.5-cm infiltrating ductal carcinoma, SBR score of 8. Final margins of resection were negative. Ten LNs were seen, all negative. ER/MA negative. HER2/cynthia negative. B. Four cycles of [...] There was no ALI or perineural invasion. ER/MA negative. HER2/cynthia negative by FISH. B. In [...] presentation today, she feels well. She has undergone recent evaluation for headaches. Non-contrast head MRI was negative. She saw neuro and started B2 supplements which have apparently helped. She has been diagnosed with obstructive sleep apnea and is going to undergo a trial of CPAP. 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 No areas of pain. Her appetite is good. She was not weighed today per her request. Her energy level is good. She does [...] It has been over four years since completion of adjuvant chemotherapy. Clinically, [...] site documented in this encounter Care Teams Roll Cleaner Relationship Specialty Start Date End Date Marlon Levine MD [address] [place] [address] PCP - General 06/20/12 documented as of this encounter
--- OUTSIDE RECORDS SUMMARY | 2023-11-09 16:23 | XMS_ITS | Encounter Summary ---
Author Organization [facility] [place] [address] Care Team Providers Care Service Sprinkler Helper Name Role Phone Marlon Levine MD Primary Care Provider + [phone] Reason for Visit * Reason Onset Date Comments Other 01/11/2013 Encounter Details Date Type Department Care Team (Late st Contact Info) Description 01/11/2013 Telephone Hematology Oncology at [address] [phone] Cyndy Falcon, RN Other Social History Tobacco Use Types [...] Telephone Encounter - Cyndy Falcon RN - 01/11/2013 4:19 PM EDT TC from patient reporting that she is distressed due to her lack of sex drive - she is wondering ifit is a result of her chemotherapy. She is hoping that there is something that she can take to help. Discussed with Dr. Beltran, who states that the chemo could have definitely affected her hormones, and that she is a candidate for hormone replacement due to the type of cancer that she has had. He advises that patient call [facility] to make an appt with one of the providers there to discusshormone replacement. Instructed patient - she is going to call for an appt. documented in this encounter Plan of Treatment Not on file documented as of this encounter Visit Diagnoses Not on filedocumented in this encounter Care Teams Service Sprinkler Helper Relationship Specialty Start Date End Date Marlon Levine MD [address] [place] [address] PCP - General 06/20/12 documented as of this encounter
--- OUTSIDE RECORDS SUMMARY | 2023-11-09 16:23 | XMS_ITS | Encounter Summary ---
Author Organization [facility] [place] [address] Care Team Providers Care Homicide Squad Lieutenant Name Role Phone Marlon Levine MD Primary Care Provider + [phone] Encounter Details Date Type Department Care Team (Late st Contact Info) Description 04/30/2012 Telephone [place] [phone] Ana Lilia Soria APRN [facility] [place] [address] Social History Tobacco Use Types Packs/Day Years [...] Telephone Encounter - Ingrid Osborn - 04/30/2012 2:33 PM EST Unable to reach this patient [...] on filedocumented in this encounter Care Teams Homicide Squad Lieutenant Relationship Specialty Start Date End Date Marlon Levine MD [address] [place] [address] PCP - General 02/16/10 06/19/12 documented as of this encounter
--- OUTSIDE RECORDS SUMMARY | 2023-11-09 16:23 | XMS_ITS | Encounter Summary ---
Author Organization [facility] Address [facility] [place] [address] Care Team Providers Care Service Observer Chief Name Role Phone Marlon Levine MD Primary Care Provider [phone] Reason for Visit * Reason Comments Follow-up Encounter Details Date Type Department Care Team (Late st Contact Info) Description 06/21/2013 10:00 AM EDT Follow-[place] [address] Tari Chen MD [facility] [address] [place] [address] Weight loss (Primary Dx) Discharge Disposition: Home Social History [...] Sign Reading Time Taken Comments Blood Pressure 128/84 06/21/2013 10:15 AM EDT Pulse 66 06/21/2013 10:15 AM EDT Temperature - - Respiratory Rate - - Oxygen Saturation - - Inhaled Oxygen Concentration - - Weight 74.4 kg (164 lb) 06/21/2013 10:15 AM EDT Height 175.3 cm (5' 9) 06/21/2013 10:15 AM EDT Body Mass Index 24.22 06/21/2013 10:15 AM EDT documented in this encounter Progress Notes * Tali Kamara MD - 06/27/2013 5:19 PM EDT I have reviewed Dr. Chen' plan of care and agree with her note. Tali Kamara MD * Tari Chen MD - 06/21/2013 10:25 AM EDT Gastroenterology follow-up note: Problem List: #Breast Cancer: --BRCA-1,2 negative --Cancer of the left breast, T2, N0, M0. Dx 2004. Cancer of the right breast, T1, N0, M0. Dx 2007. S/p chemotherapy. --Bilateral prophylactic mastectomy on October 30, 2008 with staged breast reconstruction. #Acute pancreatitis: --Presented to OSH with elevated LFTs and acute pancreatitis --Normal TGs, no significant EtOH, no new medications --EUS and MRCP without choledocholithiasis/cholelithiasis, pancreatic divisum --Pain completely resolved INTERVAL EVENTS: --Now presents with 4 month h/o increased post-prandial epigastric abdominal pain followed by diffuse lower abdominal cramping pain --Was significantly constipated at the onset of abdominal pain- she had drastically changed her diet to only meat and vegetables around the onset of her constipation, but her stools have since changed to light, unformed stools BID-TID --Relief of abdominal pain with BM --No blood in stools or melena --Pain increases within minutes of po intake --Has gone to ED 3 times with pain, has been DC home with negative labwork; most recent ED visit [facility] [place] [facility] [place]. Pt was sent home with TID dicyclomine --Presented to [facility] ED with abdominal pain, DC from ED after negative lab work --Has lost #41 since 02/2013: has been intentional, but feels has done nothing drastic enough to explain amount of weight loss --Has been going through a divorce this winter NSAIDs: <1 time per month Family Hx: --No known h/o GI malignancy Current Outpatient Prescriptions on File Prior to Visit Medication Sig Dispense Refill ??? dicyclomine (BENTYL) 10 mg capsule Take 1 capsule by mouth every 8 hours as needed. 20 capsule 0 ??? CYANOCOBALAMIN, VITAMIN B-12, (VITAMIN B-12 ORAL) Take 1 tablet by mouth daily. ??? UNABLE TO FIND Take 100 mg by mouth daily. Vitamin B 2 - 2 tabs in the AM ??? ibuprofen (ADVIL;MOTRIN) 800 mg tablet Take 1 tablet by mouth as needed. ??? acetaminophen (TYLENOL) 325 mg tablet Take 650 mg by mouth every 6 hours as needed. PE: BP 128/84 Pulse 66 Ht 175.3 cm (5' 9) Wt 74.39 kg (164 lb) BMI 24.21 kg/m2 Gen: Adult W, alert, NAD HEENT: Anicteric, MMM, no oral lesions CV: RRR, no m/g/r Resp: CTA bilaterally Abd: nondistended, BS present, mild discomfort to deep palpation in epigastrium, no rebound/guarding Ext: No pedal edema Labs: Lab Results Component Value Date WBC 6.5 06/13/2013 HGB 14.4 06/13/2013 HCT 42.9 06/13/2013 MCV 93.3 06/13/2013 PLATELET 197 06/13/2013 Lab Results Component Value Date ALT 12 06/13/2013 AST 14 06/13/2013 ALKPHOS 85 06/13/2013 BILITOT 0.3 06/13/2013 EUS 05/2011: Impression: - Probable mild residual inflammation in the head of pancreas. - Otherwise normal exam.- No structural source for recent pancreatitis identified. Recommendation: - Observe patient's clinical course. - F/up in GI Clinic if symptoms persist or recur. MRCP 05/2011: IMPRESSION: 1. No evidence of choledocholithiasis. 2. No evidence of pancreas divisum, persistent parapancreatic inflammatory changes, or pancreatic pseudocysts. Assessment: Pt is a 42 yo W with a h/o acute, likely gallstone, pancreatitis, as well as early onset breast cancer s/p bilateral mastectomy, now presenting with a 4-5 h/o epigastric and diffuse lower, cramping abdominal pain associated with a change in bowel pattern and significant weight loss. Symptoms correlate with a change in diet and increase stress related to her divorce. She most likely has visceral hypersensitivity or IBS, but given her h/o acute pancreatitis, cancer hx, and weight losswe will first proceed to abdominal CT and EGD to r/o UGI tract, celiac disease or pancreatic pathology. Pt denies increased abdominal bloating and distension, making SIBO less likely. Low FODMAP diet would not likely impact symptoms. Plan: --TTG and IgA --EGD and abdominal CT in the next 1-2 weeks --Dicyclomine 20mg QID for symptom control --F/U verbally with results of the testing above --FU PRN Tari Chen MD Fellow, Section of Gastroenterology Pager [phone] documented in this encounter Plan of Treatment Scheduled Orders Name Type Priority Associated Diagnoses Orde r Schedule UPPER GI ENDOSCOPY Procedures Routine Weight loss Ordered: 06/21/2013 documented as of this encounter Results * CT abdomen & [...] in this encounter Visit Diagnoses Diagnosis Weight loss- Primary Loss of weight Weight loss Loss of weight documented in this encounter Care Teams Service Observer Chief Relationship Specialty Start Date End Date Marlon Levine MD [address] [place] [address] PCP - General 06/20/12 documented as of this encounter
--- OUTSIDE RECORDS SUMMARY | 2023-11-09 16:23 | XMS_ITS | Encounter Summary ---
Author Organization [facility] [place] [address] Care Team Providers Care Sleeve Ironer Name Role Phone Marlon Levine MD Primary Care Provider + [phone] Encounter Details Date Type Department Care Team (Late st Contact Info) Description 02/14/2013 [place] [address] Maria C Gomez MD [facility] [address] [place] [address] Social History Tobacco Use Types Packs/Day Years [...] on filedocumented in this encounter Care Teams Sleeve Ironer Relationship Specialty Start Date End Date Marlon Levine MD [address] [place] [address] PCP - General 06/20/12 documented as of this encounter
--- OUTSIDE RECORDS SUMMARY | 2023-11-09 16:23 | XMS_ITS | Encounter Summary ---
Author Organization [facility] [place] [address] Care Team Providers Care Picker And Packer Name Role Phone Marlon Levine MD Primary Care Provider [phone] Encounter Details Date Type Department Care Team (Latest Contact Info) Description 07/01/2013 11:53 AM EDT - 07/01/2013 3:24 PM EDT Hospital [place] [id number] Tali Kamara MD [facility] [place] [address] Queenie Hicks MD [facility] [place] [address] Discharge Disposition: Home Social History Tobacco Use [...] encounter Discharge Instructions * Discharge Instructions* Kaitlynn Weber RN - 07/01/2013 2:39 PM EDT UPPER [...] not get better as expected. Monday-Monday Clinic [phone] 8a-5p Same Day Endo [phone] 7a-8p Otherwise contact [phone] and ask to speak to the interchange agent vocational case manager Follow-up care is a [place] part [...] 2:37 PM EDT 07/01/2013 2:37 PM EDT Narrative MENDEL AVERY - 07/01/2013 2:37 PM EDT Specimen requisition ordered. ??Separate Pathology report to follow Tali Kamara MD PATHOLOGY/CYTOLOGY O [facility] * UPPER GI ENDOSCOPY (07/01/2013 2:09 PM EDT) UPPER GI ENDOSCOPY [facility] Endoscopy Patient Name: Antonia Lance ? Procedure Date: 07/01/2013 2:09 PM ? N: [id number] ? Date of : 1970 ? Age: 42 ? Order #: [id number] ? Procedure: ? Upper GI endoscopy Indications: ? Epigastric abdominal pain Providers: ? Tali Kamara MD, Tari Chen MD, ? Suraj Silva, MICHELET, Nayla Torres. ? [place] Referring : ?Marlon Levine MD Medicines: ? [...] CRNA) documented in this encounter Care Teams Picker And Packer Relationship Specialty Start Date End Date Marlon Levine MD [address] [place] [address] PCP - General 06/20/12 documented as of this encounter
--- OUTSIDE RECORDS SUMMARY | 2023-11-09 16:23 | XMS_ITS | Encounter Summary ---
Author Organization [facility] Address [facility] [place] [place] [address] Care Team Providers Care Blood Bank Technologist Name Role Phone Marlon Levine MD Primary Care Provider [phone] Encounter Details Date Type Department Care Team (Late st Contact Info) Description 05/30/2011 4:00 PM EST - 05/30/2011 5:00 PM EST [place] [address] Jag Tyler MD [facility] [place] [address] UPPER EUS- ENDOSCOPIC ULTRASOUND (WRVU 3.47) Social History Tobacco Use Types Packs/Day Years [...] Monday, 8:00 am to 5:00pm, . The certified legal secretary specialist will need your name, medical problem, and date of the bronchoscopy. After 5pm call [phone] and ask for the pulmonary doctor mergers and acquisitions manager. * Patient Instructions* Jag Tyler MD - 05/30/2011 5:33 PM EST Please see Recommendations in the Provation procedure report which is documented in the procedural note in E-DH. * Attachments The following attachments cannot be sent through Care Everywhere. * UPPER GI ENDOSCOPY: WHAT TO EXPECT AT HOME (TURKS AND [place]) documented in this encounter Medications at Time [...] Tyler MD - 05/30/2011 5:18 PM EST [facility] Operative Note Patient Name: Antonia Lance : [id number] MR#: [id number] Case Date: 05/30/2011 Surgeon: Surgeon(s) and Role: * JAG TYLER MD - Primary * ROXANA ROMAN MD Preoperative diagnosis: Idiopathic pancreatitis, history of breast cancer (MRCP PRIOR) Postoperative diagnosis: * No post-op diagnosis entered * Procedure(s): UPPER EUS- ENDOSCOPIC ULTRASOUND Full procedure note is documented under the Procedure section of eDH. * Miscellaneous - Provider, Scanning - 05/30/2011 [...] (05/30/2011 4:42 PM EST) UPPER ENDOSCOPIC ULTRASOUND [facility] Endoscopy Patient Name: Antonia Lance ? Procedure Date: 05/30/2011 4:42 PM ? Date of : 1970 ? Age: 40 ? Order #: [id number] ? Procedure: ? Upper EUS Indications: ? Acute pancreatitis, f/up acute ? pancreatitis Providers: ? Jag Tyler MD, Martha Nava, ? RN, Ivory Eubanks, Auto Bumper Straightener Referring : ?Marlon Levine MD, Roxana Ojeda [...] ? persist or recur. ? _ Jag Tyelr MD 05/30/2011 5:26 PM ? Number of Addenda: 0 Note Initiated On: 05/30/2011 4:42 PM PROVATION 05/30/2011 4:42 PM EST Marlon Levine MD GENERAL SURGICAL ORD ERABLES PROVATION documented in this encounter Visit Diagnoses Diagnosis Pancreatitis Acute pancreatitis documented in this encounter Administered Medications Inactive Administered Medications - up to 3 most recent administrations Medication Order MAR Action Action Date Dose Rate Site meperidine (PF) (DEMEROL) 100 mg/mL carpuject ONCE PRN, Starting on 05/30/11 at 1657, Until 05/30/11 at 2106, Pain, Intra-Operative (Intra-Procedure), Routine Given 05/30/2011 5:11 PM EST 25 mg Given 05/30/2011 5:05 PM EST 50 mg Given 05/30/2011 4:57 PM EST 75 mg midazolam (VERSED) injection ONCE PRN, Starting on 05/30/11 at 1657, Until 05/30/11 at 2106, Sleep, Intra-Operative (Intra-Procedure), Routine Given 05/30/2011 5:11 PM EST 1 mg Given 05/30/2011 5:05 PM EST 1 mg Given 05/30/2011 4:57 PM EST 2 mg promethazine (PHENERGAN) injection ONCE PRN, Nausea, Starting on Mon05/30/11 at 1655, Until Mon05/30/11 at 2106, Avoid extravasation, Intra-Operative (Intra-Procedure) Given 05/30/2011 4:55 PM EST 12.5 mg documented in this encounter Active and Recently Administered Medications Times are shown in EST. PRN Medication Order 05/28/2011 05/29/2011 05/30/2011 meperidine (PF) (DEMEROL) 100 mg/mL carpuject (CANCELED) ONCE PRN, Starting on Mon05/30/11 at 1657, Until Mon05/30/11 at 2106, Pain, Intra-Operative (Intra-Procedure), Routine 1656 (Given - Provid er: Martha Nava RN - Comment: first dose of moderate sedation)1705 (Given - Provider: Martha Nava RN - Comment: med for sedation)1711 (Given - Provider: Martha Nava RN - Comment: med for sedation) midazolam (VERSED) injection (CANCELED) ONCE PRN, Starting on 05/30/11 at 1657, Until 05/30/11 at 2106, Sleep, Intra-Operative (Intra-Procedure), Routine 1656 (Given - Provid er: Martha Nava RN [...] nausea) documented in this encounter Care Teams Blood Bank Technologist Relationship Specialty Start Date End Date Marlon Levine MD [address] [place] [address] PCP - General 02/16/10 06/19/12 documented as of this encounter
--- OUTSIDE RECORDS SUMMARY | 2023-11-09 16:23 | XMS_ITS | Encounter Summary ---
Author Organization [facility] Address [facility] [place] [address] Care Team Providers Care Tracer Bullet Section Supervisor Name Role Phone Marlon Levine MD Primary Care Provider [phone] Reason for Visit * Reason Comments Strabismus 6--wks f/u for ESOTR OPIA-OD Encounter Details Date Type Department Care Team (Late st Contact Info) Description 12/07/2012 2:15 PM EDT [place] [address] Nikki Orourke MD [facility] [address] Esotropia (Primary Dx); Anisometropia Discharge Disposition: Home Social History Tobacco Use [...] Progress Notes * Nikki Orourke MD - 12/08/2012 1:57 PM EDT Antonia Lance is a 42 y.o. female with: 1. 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 Less asthenopic symptoms with appropriate cycloplegic refraction, but still with intermittent eye ache. Last visit with uncorrected anisometropic myopia, she showed more of a picture of accommodative spasm. She has had a normal MRI, h/o breast ca. I have scheduled her to see Dr. Gomez given atypical nature (development of accommodative spasm/asthenopia 11/2011) and variability. However, my impression is that these symptoms are developing as she develops early presbyopia, in conjunction with the previously uncorrected anisometropia and now with an accommodative esotropia at near (high AC/A). If persistent symptoms, then will add bifocal. 2. Myopic astigmatism, anisometropia. Continue current wear. Mild amblyopia OD. 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 F/u with SMP as scheduled. If no concerns for neuro-op cause, willplan to see her back in 6 months. NIKKI OROURKE MD documented in this encounter Plan of Treatment Not on file documented as of this encounter Visit Diagnoses Diagnosis Esotropia- Primary Esotropia, unspecified Anisometropia documented in this encounter Care Teams Tracer Bullet Section Supervisor Relationship Specialty Start Date End Date Marlon Levine MD [address] [place] [address] PCP - General 06/20/12 documented as of this encounter
--- OUTSIDE RECORDS SUMMARY | 2023-11-09 16:23 | XMS_ITS | Encounter Summary ---
Author Organization [facility] [place] [address] Care Team Providers Care Senior Java Architect Name Role Phone Marlon Levine MD Primary Care Provider [phone] Reason for Referral * Consultation (Routine) - Closed Specialty Diagnoses / Procedures Referred By Mateo sims Referred To Contact Gastroenterology Diagnoses Abdominal colic Wicho Pizano MD [facility] [place] [address] [facility] [address] [place] [address] Referral ID Status Reason Start Date Expiration Date V isits Requested Visits Authorized [id number] Closed Assume Subset of Care 06/13/2013 12/10/2013 1 1 Reason for Visit * Reason Comments Abdominal Pain Encounter Details Date Type Department Care Team (Late st Contact Info) Description 06/13/2013 6:16 PM EDT - 06/13/2013 10:32 PM EDT [place] [address] Wicho Pizano MD [facility] [place] [address] Abdominal colic Discharge Disposition: Home Social History Tobacco Use [...] Reading Time Taken Comments Blood Pressure 120/81 06/13/2013 9:40 PM EDT Pulse 78 06/13/2013 9:40 PM EDT Temperature 36.8 ??C (98.2 ??F) 06/13/2013 9:40 PM ED T Respiratory Rate 17 06/13/2013 9:40 PM EDT Oxygen Saturation 100% 06/13/2013 9:40 PM EDT Inhaled Oxygen Concentration - - Weight 72.6 kg (160 lb) 06/13/2013 6:18 PM EDT Height - - Body Mass Index 23.63 10/30/2012 2:29 PM EDT documented in this encounter Discharge Instructions * Discharge Instructions* Wicho Pizano MD - 06/13/2013 9:40 PM EDT The cause of your abdominal pain is not yet clear. It is reassuring that your laboratory analysis looks good. However, it is important for you to see gastroenterology for further evaluation. Electronic referral has been submitted. Call your primary care physician Monday to help followup on the timing of that appointment. Try the Bentyl prescription provided and take it 45 minutes before eating upto 3 times a day. Return if needed for worsening symptoms or new problems documented in this encounter Medications at Time [...] 6 hours as needed. Reported on 05/27/2016 dicyclomine (BENTYL) 10 mg capsule Take 1 capsule by mouth every 8 hours as needed. 20 capsule 0 06/13/2013 06/21/2013 documented as of this encounter ED Notes * Margot Mora - 06/13/2013 10:27 PM EDT Patient provided with discharge instructions, understood without difficulty. Given medication, ambulated out of the ED without difficulty. Will continue to monitor. * Esther Aaron RN - 06/13/2013 7:24 PM EDT Shift change report received from Constance TAFOYA, assumed care of patient at this time. * Wicho Pizano MD - 06/13/2013 7:10 PM EDT Chief Complaint Patient presents with ??? Abdominal Pain This is a 42-year-old female who presents with abdominal pain. She does her symptoms started sometime in late February when she began having intermittent periumbilical abdominal pressure associated with anorexia and early satiety. Over the subsequent several months she's had a change in stools becoming light- colored, and now crampy periumbilical pain shortly after initiating any food. She's had a40 pound weight loss, some of which is intentional. She has had no fever or vomiting. She's had no hematemesis or blood per him. She has minimal pain if she does not take n.p.o. She has a past history of pancreatitis of unclear etiology with one episode. She had an EGD at that time. Should a visit t o an outside hospital ED and early March where she says she does get IV fluids. Patient is a 42 y.o. female presenting with abdominal pain. Abdominal Pain The primary symptoms of the illness include abdominal pain. The primary symptoms of the illness do not include fever, shortness of breath, nausea, vomiting or dysuria. The current episode started more than 2 days ago. The problem has not changed since onset. Allergies Allergen Reactions ??? Adhesive Tape Rash ??? Azithromycin Hives ??? Chlorhexidine Gluconate Rash Review of Systems Constitutional: Positive for unexpected weight change. Negative for fever. HENT: Negative for congestion. Eyes: Negative for visual disturbance. Respiratory: Negative for shortness of breath. Cardiovascular: Negative for chest pain. Gastrointestinal: Positive for abdominal pain. Negative for nausea and vomiting. Genitourinary: Negative for dysuria. Musculoskeletal: Negative for myalgias. Skin: Negative for rash. Neurological: Negative for syncope. Hematological: Does not bruise/bleed easily. Psychiatric/Behavioral: Negative for confusion. Physical Exam Nursing note and vitals reviewed. Constitutional: She appears well-developed and well-nourished. HENT: Head: Normocephalic and atraumatic. Eyes: Conjunctivae normal are normal. No scleral icterus. Neck: Neck supple. No JVD present. Cardiovascular: Normal rate and regular rhythm. Pulmonary/Chest: Effort normal and breath sounds normal. Abdominal: Soft. There is no tenderness. Musculoskeletal: She exhibits no edema and no tenderness. Neurological: She is alert. She has normal strength. Skin: Skin is warm and dry. Procedures MDM 42-year-old with symptoms as above. Appears fairly subacute and presentation and with minimal if any abdominal tenderness. Appears well-hydrated. Will send an initial labs and if any of particular abnormal, we'll proceed with further diagnostics tonight. Otherwise will try to arragng close GI followup for further evaluation. Recent Results (from the past 24 hour(s)) POCT URINE Component Value Range POC Urine HCG Negative Negative - Negative POC Control Internal Controls Acceptable POCT URINE DIPSTICK Component Value Range POC Sp [place] 1.025 1.002 - 1.030 POC pH, UA 5.0 5.0 - 8.5 POC Leuk, UA neg Negative - Negative POC Nitrite, UA neg Negative - Negative POC Protein, UA trace Negative - Negative mg/dL POC Glucose, UA normal Normal - Normal mg/dL POC Ketone, UA + Negative - Negative POC Urobil, UA normal 0.2 - 1.0 mg/dL POC Bili, UA neg Negative - Negative POC Blood, UA neg Negative - Negative jessica/uL CBC (WITH DIFF) Component Value Range WBC 6.5 4.0 - 10.0 x10(3)/mcL RBC 4.60 3.93 - 5.22 x10(6)/mcL Hemoglobin 14.4 11.2 - 15.7 gm/dL Hematocrit 42.9 34.0 - 45.0 % MCV 93.3 79.0 - 94.0 fL MCH 31.3 26.6 - 32.2 pg MCHC 33.6 32.0 - 36.5 gm/dL Platelets 197 145 - 370 x10(3)/mcL RDWSD 44.9 35.0 - 46.0 fL RDWCV 13.1 10.9 - 14.4 % MPV 10.6 9.0 - 12.0 fL ELECTROLYTES PANEL Component Value Range Sodium 137 135 - 145 mmol/L Potassium Not Perf 3.5 - 5.0 mmol/L Chloride 99 98 - 107 mmol/L CO2 22 22 - 31 mmol/L Anion Gap 16 (*) 5 - 15 mmol/L BUN Component Value Range BUN 21 (*) 8 - 18 mg/dL CREATININE Component Value Range Creatinine 0.67 (*) 0.70 - 1.20 mg/dL Estimated GFR >60 >=60 GLUCOSE, RANDOM Component Value Range Glucose Lvl 74 60 - 199 mg/dL HEPATIC FUNCTION PANEL Component Value Range Total Protein 7.8 6.4 - 8.3 gm/dL Albumin 4.9 3.2 - 5.2 gm/dL AST Not Perf 0 - 30 unit/L ALT 17 0 - 30 unit/L Alk Phos 98 40 - 104 unit/L Total Bilirubin 0.3 0.2 - 1.3 mg/dL Bili, Direct Not Perf 0.0 - 0.3 mg/dL LIPASE Component Value Range Lipase 26 0 - 60 unit/L BLUE TUBE HOLD Component Value Range Blue Hold Sample in lab. GOLD TUBE HOLD Component Value Range Gold Hold Sample in lab. DIFFERENTIAL, AUTOMATED Component Value Range Neutrophils % 63.1 34.0 - 71.0 % Neutr Abs (ANC) 4.10 1.50 - 6.30 x10(3)/mcL Lymphocytes % 26.0 19.0 - 53.0 % Lymphocytes Abs 1.7 1.0 - 3.6 x10(3)/mcL Monocytes % 5.9 4.0 - 13.0 % Monocyte Abs 0.4 0.2 - 1.0 x10(3)/mcL Eosinophils % 4.3 0.0 - 7.0 % Eosinophils Abs 0.3 0.0 - 0.5 x10(3)/mcL Basophils % 0.5 0.0 - 2.0 % Basophils Abs 0.0 0.0 - 0.2 x10(3)/mcL Immature Gran % 0.20 0.00 - 0.66 % Andreina Gran Abs 0.01 0.00 - 0.05 x10(3)/mcL POTASSIUM Component Value Range Potassium 3.5 3.5 - 5.0 mmol/L HEPATIC FUNCTION PANEL Component Value Range Total Protein 6.5 6.4 - 8.3 gm/dL Albumin 4.3 3.2 - 5.2 gm/dL AST 14 0 - 30 unit/L ALT 12 0 - 30 unit/L Alk Phos 85 40 - 104 unit/L Total Bilirubin 0.3 0.2 - 1.3 mg/dL Bili, Direct 0.1 0.0 - 0.3 mg/dL GREEN TUBE HOLD Component Value Range Green Hold Sample in lab. LAVENDER TUBE HOLD Component Value Range Lavender Hold Sample in lab. LAVENDER TUBE HOLD Component Value Range Lavender Hold Sample in lab. Wicho Pizano MD 06/13/13 2151 * Constance Cruz RN - 06/13/2013 6:40 PM EDT Presents to ED via triage, AAOx3, ambulatory with c/o severe, cramping abdominal pain which makes me double over almost instantly after eating which began ~3 months ago. This pain is accompanied by suprapubic menstrustrual-type cramping pain which pt states comes initially. LMP ~1 year ago. Last p.o intake ~1200 (yogurt, almonds, salami). Pt states she has recently intentionally lost ~40 lbs by changing her diet to high protein, no sugar. H.o double mastectomy, liposuction r/t mastectomy;no other abd surgeries. Denies n/v, fever, or chills. Reports change in BM--consistency is of frosting, and my BMs are much more frequent and large. Resp even-unlabored. Chest CTAB. Heart sounds a udible/strong. Abd soft/(+)TTP over epigastrium and suprapubic region. (+) bowel sounds. Denies urinary symptoms. to evaluate. documented in this encounter Miscellaneous Notes * Discharge Summary - Provider, Scanning - 06/14/2013 8:20 AM EDT * Miscellaneous - Provider, Scanning - 06/13/2013 7:42 PM EDT * ED Triage - Elysia Mendieta RN - 06/13/2013 6:22 PM EDT Pt sts she has had mid epigastric pain and mid suprapubic pain for several months the pain is cramping in sensation and occurs after eating to an unbearable level otherwise pt has constant gnawing pain about 2/10. Pt sts she has lost approx 40 lbs since Feb. Pt is PWD, mucous membranes moist not acute distress at this time. documented in this encounter Plan of Treatment Scheduled Referrals Name Type Priority Associated Diagnoses Order Schedule Referral to Gastroenterology Outpatient Referral Routine Abdominal colic Ordered: 06/13/2013 documented as of this encounter Procedures Procedure Name Priority Date/Time Associated Diagnosis Comments GREEN TUBE HOLD STAT 06/13/2013 8:50 PM EDT LAVENDER TUBE HOLD STAT 06/13/2013 8: 50 PM EDT LAVENDER TUBE HOLD STAT 06/13/2013 8: 50 PM EDT POTASSIUM STAT 06/13/2013 8:50 PM EDT HEPATIC FUNCTION PANEL STAT 06/13/2013 8:50 PM EDT DIFFERENTIAL, AUTOMATED STAT 06/13/2013 7:30 PM EDT GOLD TUBE HOLD STAT 06/13/2013 7:30 PM EDT BLUE TUBE HOLD STAT 06/13/2013 7:30 PM EDT CREATININE STAT 06/13/2013 7:30 PM EDT CBC (WITH DIFF) STAT 06/13/2013 7:30 PM EDT BUN STAT 06/13/2013 7:30 PM EDT LIPASE STAT 06/13/2013 7:30 PM EDT GLUCOSE STAT 06/13/2013 7:30 PM EDT HEPATIC FUNCTION PANEL STAT 06/13/2013 7:30 PM EDT ELECTROLYTES PANEL STAT 06/13/2013 7: 30 PM EDT POCT URINE DIPSTICK STAT 06/13/2013 6 :50 PM EDT POCT URINE STAT 06/13/2013 6:49 PM EDT documented in this encounter Results * Lavender Tube HOLD (06/13/2013 8:50 PM EDT) Lavender Hold Sample in lab. MENDEL AVERY Blood specimen (specimen) 06/13/2013 8:50 PM EDT 06/13/2013 9:06 PM EDT Wicho Pizano MD HEMATOLOGY ORDERABLE S Performing Organization Address [facility] Co de Phone Number MENDEL AVERY * Lavender Tube HOLD (06/13/2013 8:50 PM EDT) Lavender Hold Sample in lab. MENDEL AVERY Blood specimen (specimen) 06/13/2013 8:50 PM EDT 06/13/2013 9:06 PM EDT Wicho Pizano MD HEMATOLOGY ORDERABLE S Performing Organization Address City/[facility]/ZIP Co de Phone Number MENDEL AVERY * Green Tube HOLD (06/13/2013 8:50 PM EDT) Green Hold Sample in lab. MENDEL AVERY Blood specimen (specimen) 06/13/2013 8:50 PM EDT 06/13/2013 9:05 PM EDT Wicho Pizano MD CHEMISTRY ORDERABLES Performing Organization Address [facility] de Phone Number MENDEL COLLAZOIUM * Hepatic Function Panel (06/13/2013 8:50 PM EDT) Protein, Total 6.5 6.4 - 8.3 gm/dL CERNER MILLENNIUM Albumin 4.3 3.2 - 5.2 gm/dL CERNER MILLENNIUM Aspartate Aminotransferase 14 0 - 30 unit/L CERNER MILLENNIUM Alanine Aminotransferase 12 0 - 30 unit/L CERNER MILLENNIUM Alkaline Phosphatase 85 40 - 104 unit/L CERNER MILLENNIUM Bilirubin, Total 0.3 0.2 - 1.3 mg/dL CERNER MILLENNIUM Bilirubin, Direct 0.1 0.0 - 0.3 mg/dL CERNER MILLENNIUM Blood specimen (specimen) 06/13/2013 8:50 PM EDT 06/13/2013 9:05 PM EDT Narrative Resulting Agency Comment Spec In Lab Wicho Pizano MD CHEMISTRY ORDERABLES Performing Organization Address [facility] Phone Number CERJING COLLAZOIUM * Potassium (06/13/2013 8:50 PM EDT) Potassium 3.5 3.5 - 5.0 mmol/L CERNER MILLENNIUM Comment: Please note: ??Patients with WBC >100,000 may have falsely elevated Potassium levels. ??For accurate Potassium quantification in these patients send serum separator tube (gold top) for subsequent determinations. ??Contact the Clinical Chemistry Laboratory if there are any questions. Blood specimen (specimen) 06/13/2013 8:50 PM EDT 06/13/2013 9:05 PM EDT Narrative Resulting Agency Comment Spec In Lab Wicho Pizano MD CHEMISTRY ORDERABLES Performing Organization Address [facility] Co de Phone Number CERJING REDDYENNIUM * Differential, Automated (06/13/2013 7:30 PM EDT) Neutrophil % 63.1 34.0 - 71.0 % CERJING MILLENNIUM Neutrophil Absolute 4.10 1.50 - 6.30 x10(3)/mcL CERNER MILLENNIUM Lymph % 26.0 19.0 - 53.0 % CERNER MILLENNIUM Lymphocytes Abs 1.7 1.0 - 3.6 x10(3)/mcL CERNER MILLENNIUM Monocyte % 5.9 4.0 - 13.0 % CERNER MILLENNIUM Monocyte Abs 0.4 0.2 - 1.0 x10(3)/mcL CERNER MILLENNIUM Eos % 4.3 0.0 - 7.0 % CERNER MILLENNIUM Eosinophils Abs 0.3 0.0 - 0.5 x10(3)/mcL CERNER MILLENNIUM Basophil % 0.5 0.0 - 2.0 % CERNER MILLENNIUM Baso Absolute 0.0 0.0 - 0.2 x10(3)/mcL CERNER MILLENNIUM Immature Gran % 0.20 0.00 - 0.66 % CERNER MILLENNIUM Comment: Immature granulocytes(IG's)percentage and absolute count will include metamyelocytes, myelocytes, and promyelocytes. Blood smears from CBCs yielding IG's will be scanned manually for concordance. If this scan disagrees with the automated IG or if promyelocytes are noted, a manual differential will be performed. Immature Gran Absolute 0.01 0.00 - 0.05 x10(3)/mcL MENDEL COLLAZOIUM Blood specimen (specimen) 06/13/2013 7:30 PM EDT 06/13/2013 7:38 PM EDT Wicho Pizano MD HEMATOLOGY ORDERABLE S MENDEL COLLAZOIUM * Gold Tube HOLD (06/13/2013 7:30 PM EDT) Pathologist [facility] Gold Hold Sample in lab. MENDEL COLLAZOIUM Blood specimen (specimen) 06/13/2013 7:30 PM EDT 06/13/2013 7:40 PM EDT Wicho Pizano MD CHEMISTRY ORDERABLES Performing Organization Address [facility]/ZIP Co de Phone Number MENDEL COLLAZOIUM * Blue Tube HOLD (06/13/2013 7:30 PM EDT) Blue Hold Sample in lab. CERNER BARRYENNIUM Blood specimen (specimen) 06/13/2013 7:30 PM EDT 06/13/2013 7:40 PM EDT Wicho Pizano MD HEMATOLOGY ORDERABLE S Performing Organization Address City/[facility] Co de Phone Number MENDEL COLLAZOIUM * Lipase (06/13/2013 7:30 PM EDT) Lipase 26 0 - 60 unit/L CERNER BARRYENNIUM Blood specimen (specimen) 06/13/2013 7:30 PM EDT 06/13/2013 7:38 PM EDT Narrative Resulting Agency Comment Spec In Lab Wicho Pizano MD CHEMISTRY ORDERABLES Performing Organization Address [facility] Co de Phone Number MENDEL COLLAZOIUM * Hepatic Function Panel (06/13/2013 7:30 PM EDT) Protein, Total 7.8 6.4 - 8.3 gm/dL CERNER MILLENNIUM Albumin 4.9 3.2 - 5.2 gm/dL CERNER MILLENNIUM Aspartate Aminotransferase Not Perf 0 - 30 unit/L CERNER MILLENNIUM Comment: Called by: AFP, Read back by: FITZ PIZANO, Date/Time:06/13/13 20:16. Unable to quantitate due to sample hemolysis. ??Sample redraw suggested. Alanine Aminotransferase 17 0 - 30 unit/L CERNER MILLENNIUM Alkaline Phosphatase 98 40 - 104 unit/L CERNER MILLENNIUM Bilirubin, Total 0.3 0.2 - 1.3 mg/dL CERNER MILLENNIUM Bilirubin, Direct Not Perf 0.0 - 0.3 mg/dL CERNER MILLENNIUM Comment: Called by: AFP, Read back by: FITZ PIZANO, Date/Time:06/13/13 20:16. Unable to quantitate due to sample hemolysis. ??Sample redraw suggested. Blood specimen (specimen) 06/13/2013 7:30 PM EDT 06/13/2013 7:38 PM EDT Narrative Resulting Agency Comment Spec In Lab Wicho Pizano MD CHEMISTRY ORDERABLES Performing Organization Address City/[facility]/ZIP Co de Phone Number [facility] [employer] * Glucose, random (06/13/2013 7:30 PM EDT) Glucose 74 60 - 199 mg/dL CERNER SlickLoginENNIUM Comment:Diabetes: >=200 mg/d L plus symptoms Blood specimen (specimen) 06/13/2013 7:30 PM EDT 06/13/2013 7:38 PM EDT Narrative Resulting Agency Comment Spec In Lab Wicho Pizano MD CHEMISTRY ORDERABLES Performing Organization Address [facility] Co de Phone Number [facility] [employer] * (ABNORMAL) Creatinine (06/13/2013 7:30 PM EDT) Creatinine 0.67(L) 0.70 - 1.20 mg/dL [facility] [employer] Comment: Please note that the pediatric reference intervals supplied above were not validated at [place]. Results from pediatric patients should be interpreted in conjunction to the patient's age, height and muscle mass. Est Glomerular Filtration Rate >60 >=60 CERNER MILLENNIUM Comment: This estimated GFR (eGFR) value was calculated using the MDRD equation which has been validated on patients between the ages of 18 and 70. The MDRD should not be used to assess kidney function in patients < 18 years of age or in patients with extremes of body mass, or in patients with acute kidney failure. This value should be multiplied by 1.2 for patients. For further information please copy and paste the following links into your internet browser. http://www.nkdep.nih.gov/lab-evaluation.shtml http://www.kidney.org/professionals/ Blood specimen (specimen) 06/13/2013 7:30 PM EDT 06/13/2013 7:38 PM EDT Narrative Resulting Agency Comment Spec In Lab Wicho Pizano MD CHEMISTRY ORDERABLES CERJING REDDYENNIUM * (ABNORMAL) BUN (06/13/2013 7:30 PM EDT) Blood Urea Nitrogen 21(H) 8 - 18 mg/dL CERNER MILLENNIUM Blood specimen (specimen) 06/13/2013 7:30 PM EDT 06/13/2013 7:38 PM EDT Narrative Resulting Agency Comment Spec In Lab Wicho Pizano MD CHEMISTRY ORDERABLES Performing Organization Address City/[facility]/ZIP Co de Phone Number CERJING REDDYENNIUM * (ABNORMAL) Electrolytes panel (06/13/2013 7:30 PM EDT) Sodium 137 135 - 145 mmol/L CERNER MILLENNIUM Potassium Not Perf 3.5 - 5.0 mmol/L CERNER MILLENNIUM Comment: Called by: [facility], Read back by: FITZ PIZANO, Date/Time:06/13/13 20:16. Unable to quantitate due to sample hemolysis. ??Sample redraw suggested. Please note: ??Patients with WBC >100,000 may have falsely elevated Potassium levels. ??For accurate Potassium quantification in these patients send serum separator tube (gold top) for subsequent determinations. ??Contact the Clinical Chemistry Laboratory if there are any questions. Chloride 99 98 - 107 mmol/L CERNER MILLENNIUM Carbon Dioxide 22 22 - 31 mmol/L CERNER MILLENNIUM Anion Gap 16(H) 5 - 15 mmol/L CERNER MILLENNIUM Blood specimen (specimen) 06/13/2013 7:30 PM EDT 06/13/2013 7:38 PM EDT Narrative Resulting Agency Comment Spec In Lab Wicho Pizano MD CHEMISTRY ORDERABLES CERJING COLLAZOIUM * CBC (with Diff) (06/13/2013 7:30 PM EDT) White Blood Cell 6.5 4.0 - 10.0 x10(3)/mcL CERNER MILLENNIUM Red Blood Cell 4.60 3.93 - 5.22 x10(6)/mcL [facility] Hemoglobin 14.4 11.2 - 15.7 gm/dL [facility] Hematocrit 42.9 34.0 - 45.0 % [facility] Mean Cell Volume 93.3 79.0 - 94.[address] [facility] Mean Cell Hemoglobin 31.3 26.6 - 32.[address] [facility] Mean Cell Hemoglobin Concentration 33.6 32.0 - 36.5 gm/dL [facility] Platelet 197 145 - 370 x10(3)/mcL [facility] RDW Standard Deviation 44.9 35.0 - 46.[address] [facility] RDW coefficient of variation 13.1 10.9 - 14.4 % [facility] Mean Platelet Volume 10.6 9.0 - 12.0 fL [facility] Blood specimen (specimen) 06/13/2013 7:30 PM EDT 06/13/2013 7:38 PM EDT Narrative Resulting Agency Comment Spec In Lab Wicho Pizano MD HEMATOLOGY ORDERABLE S [facility] * POCT urine dipstick (06/13/2013 6:50 PM EDT) POC Sp [place] 1.025 1.002 - 1.030 POC pH, UA 5.0 5.0 - 8.5 POC Leuk, UA neg Negative - Negative POC Nitrite, UA neg Negative - Negative POC Protein, UA trace Negative - Negative mg/dL POC Glucose, UA normal Normal - Normal mg/dL POC Ketone, UA + Negative - Negative POC Urobil, UA normal 0.2 - 1.0 mg/dL POC Bili, UA neg Negative - Negative POC Blood, UA neg Negative - Negative jessica/uL Wicho Pizano MD POINT OF CARE TEST O RDERABLES * POCT urine (06/13/2013 6:49 PM EDT) POC Urine HCG Negative Negative - Negative POC Control Internal Controls Acceptable Wicho Pizano MD POINT OF CARE TEST O RDERABLES documented in this encounter Visit Diagnoses Diagnosis Abdominal colic Colic documented in this encounter Administered Medications Inactive Administered Medications - up to 3 most recent administrations Medication Order MAR Action Action Date Dose Rate Site dicyclomine (BENTYL) capsule 20 mg 20 mg, Oral, 4 TIMES DAILY, 2 doses, First dose on Kelly 06/13/13 at 2215, Last dose on Mon06/14/13 at 0900, STAT Given 06/13/2013 10:27 PM EDT 20 mg documented in this encounter Active and Recently Administered Medications Times are shown in EDT. Scheduled Medication Order 06/11/2013 06/12/2013 06/13/2013 dicyclomine (BENTYL) capsule 20 mg (CANCELED) 20 mg, Oral, 4 TIMES DAILY, 2 doses, First dose on Kelly 06/13/13 at 2215, Last dose on Mon06/14/13 at 0900, STAT 2227 (Given - Provid er: Margot Mora) documented in this encounter Care Teams Senior Java Architect Relationship Specialty Start Date End Date Marlon Levine MD [address] [place] [address] PCP - General 06/20/12 documented as of this encounter
--- OUTSIDE RECORDS SUMMARY | 2023-11-09 16:23 | XMS_ITS | Encounter Summary ---
Author Organization [facility] [place] [address] Care Team Providers Care Pacu Rn Name Role Phone Marlon Levine MD Primary Care Provider [phone] Encounter Details Date Type Department Care Team (Late st Contact Info) Description 04/27/2011 External Results XRay at [address] [place] [address] Reynaldo Bolton MD EMERGENCY DEPT PO [facility] [address] [place] [address] Social History Tobacco Use Types Packs/Day Years Used Date Smoking Tobacco: Never Sex and Gender Information Value Date Recorded Sex Assigned at Not on file Gender Identity Not on file Sexual Orientation Not on file documented as of this encounter Plan of Treatment Not on file documented as of this encounter Procedures Procedure Name Priority Date/Time Associated Diagnosis Comments ULTRASOUND SCAN (SCAN) Routine 04/21/2011 CT SCAN (SCAN) Routine 04/21/2011 DIAGNOSTIC RADIOLOGY SCAN Routine 04/21/2011 documented in this encounter Results * Scan Doc: Diagnostic Radiology (04/21/2011) Anatomical Region Laterality Modality Other Reynaldo Bolton MD MEDIA MGR SCAN EXT ORDR/RSLT * Scan Doc: Ultrasound (04/21/2011) Anatomical Region Laterality Modality Other Reynaldo Bolton MD MEDIA MGR SCAN EXT ORDR/RSLT * Scan Doc: CT Scan (04/21/2011) Anatomical Region Laterality Modality Other Reynaldo Bolton MD MEDIA MGR SCAN EXT ORDR/RSLT documented in this encounter Visit Diagnoses Not on filedocumented in this encounter Care Teams Pacu Rn Relationship Specialty Start Date End Date Marlon Levine MD [address] [place] [address] PCP - General 02/16/10 06/19/12 documented as of this encounter
--- OUTSIDE RECORDS SUMMARY | 2023-11-09 16:24 | XMS_ITS | Encounter Summary ---
Author Organization [facility] [place] [address] Care Team Providers Care Adjuster Electrical Contacts Name Role Phone Marlon Levine MD Primary Care Provider [phone] Encounter Details Date Type Department Care Team (Late st Contact Info) Description 04/21/2010 9:30 AM EST [place] [address] Chavez Hinkle MD [facility] [place] [address] Discharge Disposition: Home Social History Tobacco Use Types Packs/Day Years Used Date Smoking Tobacco: Never Assessed Sex and Gender Information Value Date Recorded Sex Assigned at Not on file Gender Identity Not on file Sexual Orientation Not on file documented as of this encounter Plan of Treatment Not on file documented as of this encounter Visit Diagnoses Not on filedocumented in this encounter Care Teams Adjuster Electrical Contacts Relationship Specialty Start Date End Date Marlon Levine MD [address] [place] [address] PCP - General 02/16/10 06/19/12 documented as of this encounter
--- OUTSIDE RECORDS SUMMARY | 2023-11-09 16:24 | XMS_ITS | Encounter Summary ---
Author Organization [facility] Address [address] [place] [address] Care Team Providers Care Dye House Vat Worker Name Role Phone Marlon Levine MD Primary Care Provider [phone] Reason for Visit * Reason Comments Genetic Evaluation Telemedicine Video Visit Encounter Details Date Type Department Care Team (Late st Contact Info) Description 07/12/2022 12:00 EDT Telemedicine [facility] Hematology & Oncology - [facility] [address] [place], [place] [address] Zuleika Nash, MS [address], [place] [id number] Encounter for nonprocreative genetic counseling (Primary Dx); Genetic testing; Malignant neoplasm of left breast in female, estrogen receptor negative, unspecified site of breast (HCC-CMS); Malignant neoplasm of right breast in female, estrogen receptor negative, unspecified site of breast (HCC-CMS); Family history of breast cancer Social History Tobacco Use Types Packs/Day Years Used Date Smoking Tobacco: Never Smokeless Tobacco: Never Alcohol Use Standard Drinks/Week Comments No 0 (1 standard drink = 0.6 oz pur e alcohol) Interpersonal Safety Answer Date Record ed Physically Hurt Never 10/27/2019 Verbally Threaten Not on file 10/27/2019 Sex and Gender Information Value Date Recorded Sex Assigned at Not on file Gender Identity Not on file Sexual Orientation Not on file documented as of this encounter Progress Notes * Zuleika Nash, MS - 07/12/2022 1200 EDT Antonia accompanied her sister, Tiera Ramey, to the Familial Cancer Program on July 12, 2022 to discuss options for genetic testing. Tiera is followed in the Breast cancer center due to the family history of early onset breast cancer and her provider, Priscilla Pappas, recommended that Tiera and Antonia be seen together to discuss options for genetic testing. Antonia was diagnosed with breast cancerat the age of 34 in her left breast and was treated with breast conserving therapy followed by chemotherapy and radiation therapy. She had a ductal cancer that was ER negative. At age 37 she developed a second primary breast cancer in her right breast and at that time had bilateral mastectomies followed by chemotherapy. 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 Antonia did have genetic testing at [facility] in 2005 for BRCA 1 and 2 and no mutations were identified. She did proceed with reconstructive surgery using a flap procedure. Since that time she has done well. She does report an episode of pancreatitis for which she was hospitalized about 9 years ago.Currently her only medication is for an overactive bladder. She did have a LEEP procedure in the past as well. She had a colonoscopy about 4 years ago polyps were identified. She recently started seeing dermatology. Antonia lives in [facility] and her medical care is through [facility]. I reviewed with Antonia and her sister options for extended genetic testing using a multi gene panel.Following a discussion of the risk benefits and limitations Antonia was interested in proceeding witha 47 gene Common hereditary cancer panel through [facility]. She requested that a saliva collection kit be mailed to her for sample collection. Results will take 2 to 3 weeks to be completed. She was emailed an informed consent document and educational materials. If genetic testing reveals a pathogenic or likely pathogenic variant in a cancer susceptibility gene, Julio Cesar will be seen again in the familial cancer program for further discussion of the implications of these results both for her and for her family. Please see her sisters note from the same day for a complete review of ourdiscussion. * India Mena MD - 07/12/2022 1200 EDT Agree with assessment and plan as in Genetic Counselor note. India Mena MD documented in this encounter Plan of Treatment Not on file documented as of this encounter Visit Diagnoses Diagnosis Encounter for nonprocreative genetic counseling- Primary Genetic testing Other investigation and testing for procreative management Malignant neoplasm of left breast in female, estrogen receptor negative, unspecified site of breast (HCC-CMS) Malignant neoplasm of right breast in female, estrogen receptor negative, unspecified site of breast (HCC-CMS) Family history of breast cancer Family history of malignant neoplasm of breast documented in this encounter Care Teams Dye House Vat Worker Relationship Specialty Start Date End Date Marlon Levine MD [address] [place] [address] PCP - General 06/17/12 documented as of this encounter
--- OUTSIDE RECORDS SUMMARY | 2023-11-09 16:24 | XMS_ITS | Encounter Summary ---
Author Organization [facility] Address [address] [place] [address] Care Team Providers Care Lead Pony Rider Name Role Phone Unknown, Provider Primary Care Provider [phone] Encounter Details Date Type Department Care Team (Late st Contact Info) Description 05/01/2006 Results Only [facility] - [facility] [address] [place] [address] Sofia Obrien FNP [address] [place], [place] [id number] Social History Tobacco Use Types Packs/Day Years Used Date Smoking Tobacco: Never Assessed Sex and Gender Information Value Date Recorded Sex Assigned at Not on file Gender Identity Not on file Sexual Orientation Not on file documented as of this encounter Plan of Treatment Not on file documented as of this encounter Procedures Procedure Name Priority Date/Time Associated Diagnosis Comments CYTOPATHOLOGY Routine 05/01/2006 0:00 EST documented in this encounter Results * CYTOPATHOLOGY (05/01/2006 0:00 EST) Pathology Report: CYTOPATHOLOGY REPORT Reports generated via electronic interface contain original data; however they are lacking the format of the original report. Caution should be taken when reading/interpreti ng unformatted reports. Name: ? BILLIE STEPHENSON ? Accession #: ? [id number] : ? 1970 (Age: 35) ??F ?Collect Date: ? 05/01/2006 Location: ? [facility] ? Receive Date: ? 05/03/2006 Provider: ?SOFIA OBRIEN SOCIETY EDITOR Copy to: ? Specimen/Source: ?ThinPrep Pap Test, Cervix/Endocervix, processed on [employer] ThinPrep Imaging System, with manual evaluation Last Menstrual Period: ? 04/15/05 Hormonal/Contracep tive Status: ? Tubal ligation Other: ? Additional clinical information: Remote hx venereal warts HPVA - HPV testing requested if ASC-US on the current ThinPrep Pap test. ? SPECIMEN ADEQUACY ? Satisfactory for Evaluation - transformation zone component present GENERAL CATEGORIZATION ? Negative for Intraepithelial Lesion or Malignancy ? Document reviewed and electronically signed by: ? JENNIFER Stubbs(ASCP) ? Report Date: ??05/04/2006 13:53 End of Report YEISON MARINELLI 05/01/2006 05/03/2006 Sofia DOWDP PATHOLOGY ORDERABLES YEISON TO [facility] [address] [place] [address] documented in this encounter Visit Diagnoses Not on filedocumented in this encounter Care Teams Lead Pony Rider Relationship Specialty Start Date End Date Unknown, Provider, PCP - General 07/26/08 06/16/12 documented as of this encounter
--- OUTSIDE RECORDS SUMMARY | 2023-11-09 16:24 | XMS_ITS | Encounter Summary ---
Author Organization [place] [address] Care Team Providers Care Head Cashier Name Role Phone Unavailable Primary Care Provider Unavailabl e Encounter Details Date Type Department Care Team (Late st Contact Info) Description 02/10/2010 1:30 PM EST [facility]-[place] [address] [facility] [address] [place], [place] [address] Social History Tobacco Use Types Packs/Day Years [...]
--- OUTSIDE RECORDS SUMMARY | 2023-11-09 16:24 | XMS_ITS | Encounter Summary ---
Author Organization [facility] Address [address] [place] [address] Care Team Providers Care Elevator Technician Name Role Phone Unavailable Primary Care Provider Unavailabl e Encounter Details Date Type Department Care Team (Latest Contact Info) Description 04/07/2004 12:26 EST Hospital Encounter [facility] - Other [address] [place] [address] Olegario Mcconnell MD Discharge Disposition: Auto Discharge Social History Tobacco Use Types Packs/Day Years Used Date Smoking Tobacco: Never Assessed Sex and Gender Information Value Date Recorded Sex Assigned at Not on file Gender Identity Not on file Sexual Orientation Not on file documented as of this encounter Discharge Disposition Disposition Code Departure Means Destination Auto Discharge documented in this encounter Plan of Treatment Not on file documented as of this encounter Procedures Procedure Name Priority Date/Time Associated Diagnosis Comments SCOLI 1 VIEW Routine 04/07/2004 11:59 EST L SPINE 2-3 VIEWS Routine 04/07/2004 11: 59 EST documented in this encounter Results * L SPINE 2-3 VIEWS (04/07/2004 11:59 EST) Anatomical Region Laterality Modality Other 04/07/2004 11:5 9 EST Narrative 11/28/2008 17:11 EDT SCOLIOSIS, LBP. R/O DDD. ??ASSESS SCOLIOSIS. LUMBAR SPINE; THORACOLUMBAR SPINE: 04/07/04 Two views of the lumbar spine and a single view of the entire spine was obtained. The lumbar spine and the entire spine film demonstrate a thoracic scoliosis which is convex to the right and centered at T7-8. This is measured at approximately 26 degrees. There is a very mild lumbar scoliosis which is convex to the left and centered at approximately the L1-2 level. There is some right-sided facet degenerative change noted at L4-5. There is no evidence of a compression deformity. The SI joints are unremarkable. dw Procedure Note Maria Elena Khan MD - 11/28/2008 SCOLIOSIS, LBP. R/O DDD. ASSESS SCOLIOSIS. LUMBAR SPINE; THORACOLUMBAR SPINE: 04/07/04 Two views of the lumbar spine and a single view of the entire spine was obtained. The lumbar spine and the entire spine film demonstrate a thoracic scoliosis which is convex to the right and centered at T7-8. This is measured at approximately 26 degrees. There is a very mild lumbar scoliosis which is convex to the left and centered at approximately the L1-2 level. There is some right-sided facet degenerative change noted at L4-5. There is no evidence of a compression deformity. The SI joints are unremarkable. dw Olegario CRUZ DIAGNOSTIC I MAGING ORDERABLES * SCOLI 1 VIEW (04/07/2004 11:59 EST) Anatomical Region Laterality Modality Other 04/07/2004 11:5 9 EST Narrative 11/28/2008 17:11 EDT SCOLIOSIS, LBP. R/O DDD. ??ASSESS SCOLIOSIS. Procedure Note Maria Elena Khan MD - 11/28/2008 SCOLIOSIS, LBP. R/O DDD. ASSESS SCOLIOSIS. Olegario CRUZ DIAGNOSTIC I MAGING ORDERABLES documented in this encounter Visit Diagnoses Not on filedocumented in this encounter
--- OUTSIDE RECORDS SUMMARY | 2023-11-09 16:24 | XMS_ITS | Encounter Summary ---
Author Organization [facility] Address [facility] [place] [address] Care Team Providers Care Paper Baling Machine Operator Name Role Phone Marlon Levine MD Primary Care Provider [phone] Reason for Visit * Reason Comments Breast Cancer Encounter Details Date Type Department Care Team (Late st Contact Info) Description 03/01/2011 1:00 PM EST Follow-Up Hematology Oncology at [address] [phone] John Beltran MD [facility] [place] [address] Breast cancer (Primary Dx) Discharge Disposition: Home Social History Tobacco Use Types Packs/Day Years Used Date Smoking Tobacco: Never Sex and Gender Information Value Date Recorded Sex Assigned at Not on file Gender Identity Not on file Sexual Orientation Not on file documented as of this encounter Last Filed Vital Signs Vital Sign Reading Time Taken Comments Blood Pressure 121/83 03/01/2011 1:06 PM EST Pulse 91 03/01/2011 1:06 PM EST Temperature 36.7 ??C (98.1 ??F) 03/01/2011 1:06 PM ES T Respiratory Rate 18 03/01/2011 1:06 PM EST Oxygen Saturation 99% 03/01/2011 1:06 PM EST Inhaled Oxygen Concentration - - Weight - - Height - - Body Mass Index - - documented in this encounter Progress Notes * John Beltran MD - 03/01/2011 1:06 PM EST Subjective: Patient ID: Antonia Lance is a 40 y.o. female. Problem List: 1. Cancer of the left breast, T2, N0, M0. A. Dx'd 01/29, s/p lumpectomy and ALND. Path-2.5-cm infiltrating ductal carcinoma, SBR score of 8. Final margins of resection were negative. Ten LNs were seen, all negative. ER/AL negative. HER2/cynthia negative. B. Four cycles of [...] There was no ALI or perineural invasion. ER/AL negative. HER2/cynthia negative by FISH. B. In [...] and underwent screening for BRCA-1 and 2, which was negative. 5. History of rectal fissure. 6. Status post tubal ligation and reversal. HPI Ms. Lance returns in f/u of bilateral breast cancer as above. It has been about two and a half years since she completed adjuvant chemotherapy for the second cancer, which was of the right breast. She has undergone bilateral mastectomy with reconstruction. On presentation today, she feels well. 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 No areas of pain.Her appetite is good. She was not weighed today per her request but does not feel she has lost weight. Her energy level is good. She does self exam of the reconstructed breasts and has not noted any areas of concern. Review of Systems Constitutional: Negative. HENT: Negative. [...] tenderness. She has no guarding. Genitourinary: Breast exam deferred. This will be done at her f/u with Dr. Joe in March. Musculoskeletal: Normal range of motion. She exhibits [...] and affect. Her behavior is normal. Labs: WBC/ANC - 4., Hgb/Hct - 13.8/39.9, Plts - 197,000. BUN/Cr - 16/0.8. Lytes and LFTs unremarkable. TSH WNL. Assessment and Plan: Ms. Lance is a 40-year-old female with a history of bilateral breast cancer as above. It has been two and half years since completion of adjuvant chemotherapy. Clinically, she appears to be doing well without evidence of disease recurrence. No further intervention is planned at this time. As mentioned, she will f/u with Dr. Joe next month. She is also going to arrange f/u with her gynecolog ist. We will plan to see her back in 6 months, sooner if needed. documented in this encounter Procedure Notes * Provider, Scanning - 03/01/2011 1:30 PM ESTAssociated Order(s): SCAN DOC: LAB documented in this encounter Plan of Treatment Not on file documented as of this encounter Procedures Procedure Name Priority Date/Time Associated Diagnosis Comments LAB SCAN 03/01/2011 1:30 PM EST documented in this encounter Results * SCAN DOC: LAB (03/01/2011 1:30 PM EST) Narrative 03/01/2011 1:30 PM EST Procedure Note Provider, Scanning - 03/01/2011 1:30 PM EST Scanning Provider MEDIA MGR SCAN EXT O RDR/RSLT documented in this encounter Visit Diagnoses Diagnosis Breast cancer- Primary Malignant neoplasm of breast (female), unspecified site documented in this encounter Care Teams Paper Baling Machine Operator Relationship Specialty Start Date End Date Marlon Levine MD [address] [place] [address] PCP - General 02/16/10 06/19/12 documented as of this encounter
--- OUTSIDE RECORDS SUMMARY | 2023-11-09 16:24 | XMS_ITS | Encounter Summary ---
Author Organization [facility] [place] [address] Care Team Providers Care Knitting Teacher Name Role Phone Marlon Levine MD Primary Care Provider [phone] Encounter Details Date Type Department Care Team (Late st Contact Info) Description 04/01/2005 Orders Only [place]ology [place] [address] [address] [facility] [address] [place] [address] Social History Tobacco Use Types Packs/Day Years Used Date Smoking Tobacco: Never Assessed Sex and Gender Information Value Date Recorded Sex Assigned at Not on file Gender Identity Not on file Sexual Orientation Not on file documented as of this encounter Plan of Treatment Not on file documented as of this encounter Procedures Procedure Name Priority Date/Time Associated Diagnosis Comments SURGICAL PATHOLOGY REPORT Routine 04/01/2005 9:06 AM EST documented in this encounter Results * Surgical Pathology Report (04/01/2005 9:06 AM EST) Surgical Pathology Report [id number] ? Location: The signing pathologist has (i) examined the relevant preparation(s) for the specimen(s) and (ii) rendered or confirmed the diagnosis(es). . ?Pathology Surgical Pathology Final Report Clinical Information Specimen Submitted: CONSULTATION CASE A - 2 slides labeled [id number], collection date 02/15/05. B - 86 slides labeled [id number], collection date 03/02/05. C - 84 slides labeled [id number], collection date 03/10/05. [id number] Report to: Alfred Lakhani MD [facility] Surgical Pathology [address] ??[id number] Gross Description [facility] pathology slide(s) are reviewed. ??Refer to Diagnosis and Specimen Submitted for specific case information. For the full text of the [facility] report(s) please refer to Non-DH Documentation Pathology in the Clinical Information System (CIS). Microscopic Description Slides reviewed, microscopic description not recorded. Diagnosis CONSULTATION CASE A - Needle biopsies: ?Left breast. ?Diagnosis: ?Normal breast with focal lymphocytic infiltrate ?Microcalcifica tions: ??NA Specimen (s): ? B - Left breast, excision; sentinel and ? non-sentnel lymph nodes [id number]) ?C - Left breast, re-excision [id number]) Histologic Type: ?Infiltrating ductal carcinoma Tumor Grade: ?High (High, Intermediate, Low) Pgxpyc-Bjzuk-Gqf hardson Score: ??8 ?? Tubular Differentiation: ? 3 ?? Mitotic Rate: ?2 ?? Nuclear Grade: ? 3 Tumor Size: ? 2.9 cm by report (maximum diameter) In Situ Histologic Type: ?Ductal carcinoma in situ ?? Extensive/Minor Component: ?? Minor ?? Grade: ? High (High, Intermediate, Low) ?? Necrosis: ?Present (Present / Absent) ?? Pattern(s): ?Solid Microcalcificati ons: ?NA Resection Margins (RM): ?? Invasive Ca (distance, RM): ??Final margins >1.0 cm (-[facility]40964) ?? DCIS (distance, RM): ? Final margins >1.0 cm ([facility]32818) Angiolymphatic Invasion: ?Identified (-[address] [place] [address] A28) . Diagnosis Perineural Invasion: ?Not identified Nipple Involvement: ? NA Correlation Biopsies/Cytolog y ?? NA Other findings: ? Fibrocystic disese witb benign ductal ? hyperplasia, adenosis, apocrine metaplasia ?and cysts Axillary lymph nodes: Total no. of nodes sampled: ?10 ??No. of non-sentinel nodes: ?1 (Specimen(s) -04 D) ?No. positive for carcinoma: 0 (H&E only) ??No. of sentinel nodes: ?9 (Specimen(s) -[id number] C,E,F,G,H,I,J) ?No. positive for carcinoma: 0 (H&E only) Estrogen/Progest in receptors: ?? Performed on block [id number] A27 ?? ER immunoreactivity : ? Negative by report ?? MS immunoreactivity : ? Negative by report HER2/cynthia expression by IHC: ? 0/Negative (HercepTest) by report pTNM: ? pT2 pN0 pMX (AJCC, 6th edition, 2003) CR-0 04/04/05 VAM 04/04/05 Verified by: ? Tobias Vora MD ?Pathologist ?(Electronic Signature) The attending pathologist whose signature appears on this report has reviewed all diagnostic slides and has edited the gross and/or microscopic portion of the report in rendering the final pathologic diagnosis. MENDEL AVERY 04/01/2005 9:06 AM EST Ana Lilia Grubbs MD PATHOLOGY/CYTOLO GY ORDERABLES [facility] documented in this encounter Visit Diagnoses Not on filedocumented in this encounter Care Teams Knitting Teacher Relationship Specialty Start Date End Date Marlon Levine MD [address] [place] [address] PCP - General 06/20/12 documented as of this encounter
--- OUTSIDE RECORDS SUMMARY | 2023-11-09 16:24 | XMS_ITS | Encounter Summary ---
Author Organization [facility] Address [address] [place] [address] Care Team Providers Care Office Coordinator Receptionist Name Role Phone Marlon Levine MD Primary Care Provider [phone] Reason for Visit * Reason Onset Date Comments Appointment Related 04/26/2022 Encounter Details Date Type Department Care Team (Late st Contact Info) Description 04/26/2022 Telephone [facility] Cancer Center Hematology & Oncology - [address] [address] Fcp, Provider, Appointment Related Social History Tobacco Use Types Packs/Day Years [...] encounter Miscellaneous Notes * Telephone Encounter - Genie Llanes - 04/26/2022 1206 EST Patient's sister accepted a zoom for patient and herself (Tiera Ramey) on July 12, 2022 @ 12:00 p.m documented in this encounter Plan of Treatment Not on file documented as of this encounter Visit Diagnoses Not on filedocumented in this encounter Care Teams Office Coordinator Receptionist Relationship Specialty Start Date End Date Marlon Levine MD [address] [place] [id number] PCP - General 06/17/12 documented as of this encounter
--- OUTSIDE RECORDS SUMMARY | 2023-11-09 16:24 | XMS_ITS | Encounter Summary ---
Author Organization [facility] Address [address] [place] [address] Care Team Providers Care Local Tanker Truck Driver Name Role Phone Marlon Levine MD Primary Care Provider [phone] Reason for Visit * Reason Comments Pleurisy left anterior lower ribsIt is bulging and it cramps up onset 1 week ago intermittent Encounter Details Date Type Department Care Team (Late st Contact Info) Description 06/17/2012 16:02 EDT - 06/17/2012 20:05 EDT Emergency [facility] Emergency Department - [address] [address] Orion Warner MD [address] [place] [address], [address] [place] [address] Emergency, MD Ghulam Musculoskeletal chest pain (Primary Dx) Discharge Disposition: Home or Self Care Social History Tobacco Use Types Packs/Day Years [...] Sign Reading Time Taken Comments Blood Pressure 122/78 06/17/2012 1946 EDT Pulse 74 06/17/20121957 EDT Temperature 36.4 ??C (97.5 ??F) 06/17/2012 1605 EDT Respiratory Rate 18 06/17/20121957 EDT Oxygen Saturation 98% 06/17/2012 1958 EDT Inhaled Oxygen Concentration - - Weight 88.5 kg (195 lb) 06/17/2012 1605 EDT Height 175.3 cm (5' 9) 06/17/2012 1605 EDT Body Mass Index 28.8 06/17/2012 1605 EDT documented in this encounter Discharge Instructions * Discharge Instructions* Orion Warner MD - 06/17/2012 20:00 EDT Use ibuprofen or Tylenol for discomfort. Return if symptoms worsen or new symptoms develop. Followup the primary care physician as needed. * Attachments The following attachments cannot be sent through Care Everywhere. * MUSCULOSKELETAL CHEST PAIN: AFTER YOUR VISIT (SERBIAN) documented in this encounter Discharge Disposition Disposition Code Departure Means Destination Home or Self Care documented in this encounter ED Notes * Jacob Cui RN - 06/17/2012 1811 EDT Unsuccessful attempts made by this author and 2 ED techs to insert PIV. EPIC PROFESSIONAL at bedside at this time * Orion Warner MD - 06/17/2012 1700 EDT DOS: 06/17/2012 Chief Complaint Patient presents with ??? Pleurisy left anterior lower ribsIt is bulging and it cramps up onset 1 week ago intermittent The patient is a 41 y.o. female who presents today with Pleurisy HPI Comments: The patient is a 41-year-old female status post bilateral mastectomies for breast cancer who presents with a one-week history of sharp left-sided chest discomfort that is exacerbated bydeep inspiration, cough and certain movements. Patient denies any history of trauma to her chest. Patient denies feeling short of breath. Patient denies pain or swelling of her lower extremities. Patient denies a past history of blood clots. Patient denies a family history blood clots. Patient denies fevers or chills. Patient denies feeling lightheaded or dizzy. Patient denies abdominal pain, nausea, vomiting, diarrhea. Patient denies dysuria or urinary frequency. Patient denies skin rash. Patient now presents for further evaluation treatment of sharp left-sided chest pain that is exacerbatedby deep inspiration and certain movements. The history is provided by the patient. Chest Pain This is a new problem. The onset was gradual in nature. The problem has been gradually worsening. The pain is associated with breathing, coughing and movement. The pain is present in the substernal region and lateral region. The pain is mild. The quality of the pain is described as brief, sharp andpleuritic. The pain does not radiate. The symptoms are aggravated by deep breathing and certain positions. Pertinent negatives include no abdominal pain, no back pain, no claudication, no cough, no diaphoresis, no dizziness, no exertional chest pressure, no fever, no headaches, no hemoptysis, no irregular heartbeat, no leg pain, no lower extremity edema, no malaise/fatigue, no nausea, no near-syncope, no palpitations, no shortness of breath, no sputum production, no syncope, no vomiting and no weakness. She has tried nothing for the symptoms. Patient's risk factors do not include hyperlipidemia, HTN or tobacco use. Review of Systems Constitutional: Negative for fever, chills, malaise/fatigue, diaphoresis and fatigue. HENT: Negative for congestion, sore throat, facial swelling, rhinorrhea, mouth sores, neck pain andneck stiffness. Eyes: Negative for photophobia and visual disturbance. Respiratory: Negative for cough, hemoptysis, sputum production, chest tightness, shortness of breath and wheezing. Cardiovascular: Positive for chest pain. Negative for palpitations, claudication, leg swelling, syncope and near-syncope. Gastrointestinal: Negative for nausea, vomiting, abdominal pain and diarrhea. Genitourinary: Negative for dysuria, hematuria and difficulty urinating. Musculoskeletal: Negative for back pain. Skin: Negative for rash. Neurological: Negative for dizziness, weakness and headaches. Hematological: Negative for adenopathy. Does not bruise/bleed easily. Psychiatric/Behavioral: Negative for confusion. The patient is not nervous/anxious. All other systems reviewed and are negative. Past Medical History Diagnosis Date ??? Cancer ??? Pancreatitis Past Surgical History Procedure Date ??? Mastectomy bilateral Allergies Allergen Reactions ??? Erythromycin History Substance Use Topics ??? Smoking status: Never Smoker ??? Smokeless tobacco: Never Used ??? Alcohol Use: No No family history on file. Vital Signs Temp: 36.4 ??C (97.5 ??F) Temp src: Tympanic Pulse: 74 Heart Rate: 99 BPM Resp: 18 SpO2: 98 % SpCO: 3 % BP: 122/78 mmHg BP Device: BP Machine Patient Position: Sitting BP Cuff Location: Left arm O2 Device: None (Room air) Physical Exam Nursing note and vitals reviewed. Constitutional: She is oriented to person, place, and time. She appears well- developed and well-nourished. No distress. HENT: Head: Normocephalic and atraumatic. Right Ear: External ear normal. Left Ear: External ear normal. Nose: Nose normal. Mouth/Throat: Oropharynx is clear and moist. Eyes: Conjunctivae and EOM are normal. Pupils are equal, round, and reactive to light. Neck: Normal range of motion. Neck supple. No tracheal deviation present. Cardiovascular: Normal rate, regular rhythm and normal heart sounds. Pulmonary/Chest: Breath sounds normal. No respiratory distress. She has no wheezes. She has no rales. She exhibits tenderness (slight tenderness along the anterior left lower chest wall). Abdominal: Soft. Bowel sounds are normal. She exhibits no distension. There is no tenderness. Thereis no rebound. Musculoskeletal: Normal range of motion. She exhibits no edema and no tenderness. No swelling or tenderness of the lower extremities Neurological: She is alert and oriented to person, place, and time. She has normal strength. No cranial nerve deficit or sensory deficit. Skin: Skin is warm and dry. No rash noted. Psychiatric: She has a normal mood and affect. Radiology orders: CHEST PA AND LATERAL CT ANGIOGRAM CHEST (Results Pending) CT CHEST W CONTRAST (PE) PROTOCOL (Results Pending) CHEST PA AND LATERAL (Results Pending) Procedures ED Course: A medical screening exam was performed. The patient is a 41-year-old female who presents with a one-week history of sharp left-sided chest discomfort that is exacerbated with palpation and deep inspiration. Physical exam as above. Despite numerous attempts by IV nurse intravenous access was unobtainable. Chest [id number] with radiologist, no acute cardiopulmonary process, and numerous clips presentsecondary to bilateral mastectomies Laboratory [id number] not elevated. Patient with reproducible musculoskeletal chest pain. Patient discharged home will use Tylenol or Advil for discomfort. Patient return if symptoms worsen or new symptoms develop. Disposition: Discharged The patient's pain was managed to an adequate level weighing risk vs. benefit of further medications. Upon departure from the Emergency Department, the patient's pain was 2 on a zero to ten scale. Condition at departure from the Emergency Department: Good Discharge Prescriptions No Discharge Prescriptions for this patient MDM Number of Diagnoses or Management Options Musculoskeletal chest pain: Amount and/or Complexity of Data Reviewed Clinical lab tests: ordered and reviewed Tests in the radiology section of CPT??: ordered and reviewed Discussion of test results with the performing providers: yes (Radiologist) Decide to obtain previous medical records or to obtain history from someone other than the patient:yes Independent visualization of images, tracings, or specimens: yes (Chest x-ray, laboratory tests) Risk of Complications, Morbidity, and/or Mortality Presenting problems: moderate Diagnostic procedures: moderate Management options: moderate General comments: 4 Patient Progress Patient progress: stable Final diagnoses: Musculoskeletal chest pain PCP: DOCTOR SUNIL MD 06/17/2012 20:04 * Jacob Cui RN - 06/17/2012 1633 EDT NAD. Crackles present on deep inspiration on left base documented in this encounter Miscellaneous Notes * Scanned Note-Null - CUSTOMER ACCOUNT REPRESENTATIVE, SCAN 2 - 06/21/2012 0906 EDT documented in this encounter Plan of Treatment Pending Results Name Type Priority Associated Diagnoses Date /Time HOLD GREEN TOP Lab Routine 06/17/2012 17:05 EDT Scheduled Orders Name Type Priority Associated Diagnoses Orde r Schedule HOLD GREEN TOP Lab Routine For medica tions that can be administered at any time during the hospitalization for visit such as immunizations. for 1 Occurrences starting 06/17/2012 documented as of this encounter Procedures Procedure Name Priority Date/Time Associated Diagnosis Comments CHEST PA AND LATERAL STAT 06/17/2012 19:01 EDT SMEAR REVIEW Routine 06/17/2012 17:05 EDT DIFFERENTIAL Routine 06/17/2012 17:05 EDT PROTIME STAT 06/17/2012 17:05 EDT D-DIMER Routine 06/17/2012 17:05 EDT COMPLETE BLOOD COUNT Routine 06/17/2012 17:05 EDT COMPLETE BLOOD COUNT AND DIFFERENTIAL STAT 06/17/2012 17:05 EDT BUN STAT 06/17/2012 17:05 EDT GLUCOSE, SERUM STAT 06/17/2012 17:05 EDT CREATININE STAT 06/17/2012 17:05 EDT ELECTROLYTES STAT 06/17/2012 17:05 EDT documented in this encounter Results * CHEST PA AND LATERAL (06/17/2012 19:01 EDT) Anatomical Region Laterality Modality Other 06/17/2012 19:0 1 EDT 06/17/2012 20:07 EDT Narrative 06/17/2012 20:07 EDT CHEST PA AND LAT ??Jun 17, 2012 07:01:00 PM Clinical History/Comments: Sharp left-sided chest pain Comparison: X-rays dated 02/15/2005 and 07/26/2008. Findings: PA and lateral views of the chest were obtained. The lungs are clear. The cardiomediastinal silhouette and pulmonary vascularity are within normal limits. There is no pneumothorax or pleural effusion. Numerous surgical clips project over the chest bilaterally. There is persistent dextroconvex scoliosis of the lower thoracic spine. I have personally reviewed the images and the above interpretation and agree with the findings. Procedure Note Kenrick Collado MD - 06/17/2012 CHEST PA AND LAT Jun 17, 2012 07:01:00 PM Clinical History/Comments: Sharp left-sided chest pain Comparison: X-rays dated 02/15/2005 and 07/26/2008. Findings: PA and lateral views of the chest were obtained. The lungs are clear. The cardiomediastinal silhouette and pulmonary vascularity are within normal limits. There is no pneumothorax or pleural effusion. Numerous surgical clips project over the chest bilaterally. There is persistent dextroconvex scoliosis of the lower thoracic spine. I have personally reviewed the images and the above interpretation and agree with the findings. Orion Warner MD IMG DIAGNOSTIC IMAGI NG ORDERABLES * DIFFERENTIAL (06/17/2012 17:05 EDT) % Neutrophils 61.8 45.5 - 79.7 % [facility] % Lymphocytes 28.5 15.0 - 46.8 % [facility] % Monocytes 6.7 1.8 - 12.0 % [facility] % Eosinophils 2.0 0.6 - 6.9 % [facility] % Basophils 1.0 0.2 - 1.4 % [facility] ABS Neutrophils 3.65 2.20 - 8.85 K/cmm [facility] ABS Lymphs 1.68 1.09 - 3.30 K/cmm [facility] ABS Monocytes 0.40 0.1 - 0.8 K/cmm [facility] ABS Eosinophils 0.12 0.03 - 0.61 K/cmm [facility] ABS Basophils 0.06 0.01 - 0.11 K/cmm [facility] Type of Diff: Automated [facility] 06/17/2012 17:0 5 EDT 06/17/2012 18:47 EDT Orion Warner MD HEMATOLOGY & PF4 ORD ERABLES [facility] [address] [place] [address] * SMEAR REVIEW (06/17/2012 17:05 EDT) Smear scan only: Slide was examined by a technologist to verify the WBC and/or platelet count. [facility] 06/17/2012 17:0 5 EDT 06/17/2012 18:47 EDT Orion Warner MD HEMATOLOGY & PF4 ORD ERABLES Performing Organization Address [facility] Co de Phone Number [facility] [address] [place] [address] * HEMAGRAM (06/17/2012 17:05 EDT) Pathologist [facility] WBC 5.91 4.0 - 12.4 K/cmm [facility] RBC 4.50 3.86 - 5.04 M/cmm [facility] Hemoglobin 14.3 11.6 - 15.2 gm/dl [facility] HCT 42.4 34.9 - 44.4 % [facility] MCV 94 81 - 98 fl [facility] MCH 31.7 26.7 - 33.3 pg [facility] MCHC 33.7 32.1 - 35.9 gm/dl [facility] PLT 164 141 - 320 K/cmm [facility] RDW-CV 13.4 11.7 - 14.6 % [facility] 06/17/2012 17:0 5 EDT 06/17/2012 18:47 EDT Orion Warner MD HEMATOLOGY & PF4 ORD ERABLES Performing Organization Address [facility] Co de Phone Number [facility] [address] [place] [address] * D-DIMER (06/17/2012 17:05 EDT) Pathologist [facility] D-Dimer <200 <230 ng/mL [facility] Comment:CUTOFF VALUE FOR THE EXCLUSION OF DVT and PE: 230 ng/mL D-dimer units 06/17/2012 17:0 5 EDT 06/17/2012 18:47 EDT Orion Warner MD HEMATOLOGY & PF4 ORD ERABLES Performing Organization Address [facility] Co de Phone Number [facility] [address] [place] [address] * PROTIME (06/17/2012 17:05 EDT) Pathologist [facility] Pro Time 10.5 9.5 - 13.1 secs [facility] I.N.R. 0.9 0.9 - 1.1 Ratio [facility] Comment: Moderate Intensity Coumadin INR = 2.0-3.0 Adjustments in anticoagulant therapy dose should be based upon the INR and NOT the Pro Time. Blood specimen (specimen) 06/17/2012 17:05 EDT 06/17/2012 18:47 EDT Orion Warner MD HEMATOLOGY & PF4 ORD ERABLES Performing Organization Address [facility] de Phone Number [facility] [address] [place] [address] * CREATININE (06/17/2012 17:05 EDT) Creatinine 0.56 0.52 - 1.04 mg/dl [facility] Comment:Slight hemolysis GFR, Calculated >60 >60 ml/min/1.7 3m2 [facility] Blood specimen (specimen) 06/17/2012 17:05 EDT 06/17/2012 18:47 EDT Orion Warner MD CHEMISTRY & BLOOD GA S ORDERABLES Performing Organization Address [facility] Phone Number [facility] [address] [place] [address] * BUN (06/17/2012 17:05 EDT) BUN 19 10 - 26 mg/dl [facility] Comment: Slight hemolysis Results may be affected due to hemolysis. Blood specimen (specimen) 06/17/2012 17:05 EDT 06/17/2012 18:47 EDT Orion Warner MD CHEMISTRY & BLOOD GA S ORDERABLES Performing Organization Address [facility] Phone Number [facility] [address] [place] [address] * ELECTROLYTES (06/17/2012 17:05 EDT) Sodium 145 136 - 145 mEq/L [facility] Comment:Slight hemolysis Potassium 4.9 3.5 - 5.0 mEq/L [facility] Comment: Slight hemolysis Hemolysis may elevate potassium result. Chloride 103 96 - 110 mEq/L [facility] Comment:Slight hemolysis CO2 26 24 - 32 mEq/L [facility] Comment:Slight hemolysis Blood specimen (specimen) 06/17/2012 17:05 EDT 06/17/2012 18:47 EDT Orion Warner MD CHEMISTRY & BLOOD GA S ORDERABLES Performing Organization Address [facility] Co de Phone Number [facility] [address] [place] [address] * GLUCOSE, SERUM (06/17/2012 17:05 EDT) Glucose, Serum 79 70 - 100 mg/dl [facility] Comment: Slight hemolysis Results may be affected due to hemolysis. Blood specimen (specimen) 06/17/2012 17:05 EDT 06/17/2012 18:47 EDT Orion Warner MD CHEMISTRY & BLOOD GA S ORDERABLES Performing Organization Address [facility] Phone Number [facility] [address] [place] [address] documented in this encounter Visit Diagnoses Diagnosis Musculoskeletal chest pain- Primary Other chest pain documented in this encounter Administered Medications Inactive Administered Medications - up to 3 most recent administrations Medication Order MAR Action Action Date Dose Rate Site sodium chloride (NS) 0.9 % 1,000 mL BOLUS 1,000 mL, intravenous, Once (Without Time Specified), 1 dose, Starting on 06/17/12 at 1715, Until 06/17/12 at 1908, STAT Given 06/17/2012 19:08 EDT 1,000 mL documented in this encounter Active and Recently Administered Medications Times are shown in EDT. Scheduled Medication Order 06/15/2012 06/16/2012 06/17/2012 sodium chloride (NS) 0.9 % 1,000 mL BOLUS (COMPLETED) 1,000 mL, intravenous, Once (Without Time Specified), 1 dose, Starting on 06/17/12 at 1715, Until 06/17/12 at 1908, STAT 1908 (Given - Provid er: Jacob Cui RN) documented in this encounter Orders Medications Ordered That Mario ht Not Have Been Administered Count Last Ordered Date First Ordered Date sodium chloride (NS) 0.9 % 1,000 mL BOLUS 1 06/17/2012 IV Count Last Ordered Date First Orde red Date IV REQUEST 1 06/17/2012 documented in this encounter Care Teams Local Tanker Truck Driver Relationship Specialty Start Date End Date Marlon Levine MD [address] [place] [address] PCP - General 06/17/12 documented as of this encounter
--- OUTSIDE RECORDS SUMMARY | 2023-11-09 16:24 | XMS_ITS | Encounter Summary ---
[place] [address] Care Team Providers Care Transition Assistant Name Role Phone Marlon Levine MD Primary Care Provider [phone] Encounter Details Date Type Department Care Team (Late st Contact Info) Description 04/21/2010 2:00 PM EST Procedure visit [place] [address] Social History Tobacco Use Types Packs/Day Years Used Date Smoking Tobacco: Never Assessed Sex and Gender Information Value Date Recorded Sex Assigned at Not on file Gender Identity Not on file Sexual Orientation Not on file documented as of this encounter Plan of Treatment Not on file documented as of this encounter Visit Diagnoses Not on filedocumented in this encounter Care Teams Transition Assistant Relationship Specialty Start Date End Date Marlon Levine MD [address] [place] [address] PCP - General 02/16/10 06/19/12 documented as of this encounter
--- OUTSIDE RECORDS SUMMARY | 2023-11-09 16:24 | XMS_ITS | Clinical Summary ---
Author Organization [facility] Address [address] [place] [address] Care Team Providers Care Petroleum Production Engineer Name Role Phone Marlon Levine MD Primary Care Provider [phone] Allergies Active Allergy Reactions Criticality Noted Date Comments Erythromycin 06/17/2012 Medications No known medications Surgical History Surgery Date Site/Laterality Comments MASTECTOMY bilateral Medical History Medical History Date Comments Cancer (HCC-CMS) Pancreatitis Social History Tobacco Use Types Packs/Day Years [...] on file Sexual Orientation Not on file Obstetrics History Last Filed Vital Signs Vital Sign Reading Time Taken Comments Blood Pressure 122/78 06/17/2012 1946 EDT Pulse 74 06/17/20121957 EDT Temperature 36.4 ??C (97.5 ??F) 06/17/2012 1605 EDT Respiratory Rate 18 06/17/2012 1958 EDT Oxygen Saturation 98% 06/17/20121957 EDT Inhaled Oxygen Concentration - - Weight 88.5 kg (195 lb) 06/17/2012 1605 EDT Height 175.3 cm (5' 9) 06/17/2012 1605 EDT Body Mass Index 28.8 06/17/2012 1605 EDT Plan of Treatment Health Maintenance Due Date Last Done Comments Hepatitis C Screen 1971 Hepatitis B Vaccine (1 of 3 - 19+ 3-dose series) 08/29 COVID-19 Vaccine (1 - 2023- season) 2022 Care Teams Petroleum Production Engineer Relationship Specialty Start Date End Date Marlon Levine MD [address] [place] [id number] PCP - General 06/17/12
--- OUTSIDE RECORDS SUMMARY | 2023-11-09 16:24 | XMS_ITS | Encounter Summary ---
Author Organization [facility] [place] [address] Care Team Providers Care International Flight Attendant Name Role Phone Marlon Levine MD Primary Care Provider [phone] Reason for Visit * Reason Comments Follow-up Encounter Details Date Type Department Care Team (Late st Contact Info) Description 10/06/2010 2:30 PM EDT Follow-Up Hematology Oncology at [address] [phone] Melissa Chacko, [address] [place] [address], [place] [phone] Breast cancer (Primary Dx) Discharge Disposition: Home Social History Tobacco Use Types Packs/Day Years Used Date Smoking Tobacco: Never Sex and Gender Information Value Date Recorded Sex Assigned at Not on file Gender Identity Not on file Sexual Orientation Not on file documented as of this encounter Last Filed Vital Signs Vital Sign Reading Time Taken Comments Blood Pressure 122/83 10/06/2010 2:38 PM EDT Pulse 81 10/06/2010 2:38 PM EDT Temperature 37.2 ??C (99 ??F) 10/06/2010 2:38 PM EDT Respiratory Rate 16 10/06/2010 2:38 PM EDT Oxygen Saturation 99% 10/06/2010 2:38 PM EDT Inhaled Oxygen Concentration - - Weight 87 kg (191 lb 12.8 oz) 10/06/2010 2:38 PM EDT Height 175 cm (5' 8.9) 10/06/2010 2:38 PM EDT Body Mass Index 28.41 10/06/2010 2:38 PM EDT documented in this encounter Progress Notes * Melissa Chacko, - 10/06/2010 3:05 PM EDT Hematology/Oncology [place], [address] () - [phone] (fax) ESTABLISHED PATIENT EVALUATION: Problem List: 1. Cancer of the left breast, T2, N0, M0. A. Dx'd 01/29, s/p lumpectomy and ALND. Path-2.5-cm infiltrating ductal carcinoma, SBR score of 8. Final margins of resection were negative. Ten LNs were seen, all negative. ER/IN negative. HER2/cynthia negative. B. Four cycles of [...] There was no ALI or perineural invasion. ER/IN negative. HER2/cynthia negative by FISH. B. In [...] 6. Status post tubal ligation and reversal. Interval History: Ms. Lance is a 39-year-old female with a history of bilateral breast cancer as above. It has been almost two years since she completed adjuvant chemotherapy for the second cancer, which was of the right breast. She saw Dr. Joe in March. INTERIM HISTORY: Patient eturns to the clinic today with bilateral breast cancer two years out fromchemotherapy for the second breast. No breast complaints. She will have breast exam w/surgeon. She has a noticed weight gain since her treatment ended, and has never had this problem before. Some urinary urgency. INTERIM SOCIAL/FAMILY HISTORY: No interval change. REVIEW OF SYSTEMS: Energy: stable Pain: no Appetite:good Fevers/chills/drenching sweats:No Bruising/bleeding/melena:No Recent infections:No HEENT: negative Nausea/vomiting/diarrhea/constipation:No Dysuria: No SOB/cough/chest pain:No Change in adenopathy or other masses:No Unexpected weight loss or gain:No Skin rashes or petechiae:No Musculoskeletal complaints:No Extremities: Negative upper and lower bilaterally Neurologic symptoms:No PHYSICAL EXAM: Afebrile. NAD, A & O x 3. HEENT: Sclera anicteric, oral pharynx is clear. Skin: Without rash or petechia. Lymph: No cervical, supraclavicular, axillary lymphadenopathy. Lungs: Bronchovesicular breath sounds throughout, no wheezes, rales, rhonci. Cardiac: Regular rate rhythm, S1, S2, no murmur, rub or gallop. Abdomen: Soft, non-tender, spleen and liver non palpable. Extremities: No lower extremity edema. M/S: No sternal or spinal tenderness. Neurologic: Gait steady, speech clear, cognition intact, no focal neurologic deficit. RADIOLOGY: no new studies LABORATORY: No new studies ASSESSMENT/PLAN: Breast cancer - no sympatoms to suggest recurrence. Will plan to follow her closely in the clinic, and she will e seen by jimr. Weight management - Follow up with [facility]. Instructed to keep food diary. Will check, TSH,cbc, cmp. RTC 2-3 weeks for Nutrtion appt, and lab review. Farzad was reminded to call in the interim should questions or concerns arise. documented in this encounter Plan of Treatment Not on file documented as of this encounter Visit Diagnoses Diagnosis Breast cancer- Primary Malignant neoplasm of breast (female), unspecified site documented in this encounter Care Teams International Flight Attendant Relationship Specialty Start Date End Date Marlon Levine MD [address] [place] [address] PCP - General 02/16/10 06/19/12 documented as of this encounter
--- OUTSIDE RECORDS SUMMARY | 2023-11-09 16:24 | XMS_ITS | Encounter Summary ---
Author Organization [facility] Address [facility] [place] [address] Care Team Providers Care Prosthetics Assistant Name Role Phone Marlon Levine MD Primary Care Provider [phone] Encounter Details Date Type Department Care Team (Late st Contact Info) Description 04/21/2011 Orders [place] [address] Jc Carpenter MD [facility] [place] [address] Social History Tobacco Use Types Packs/Day Years Used Date Smoking Tobacco: Never Sex and Gender Information Value Date Recorded Sex Assigned at Not on file Gender Identity Not on file Sexual Orientation Not on file documented as of this encounter Plan of Treatment Not on file documented as of this encounter Procedures Procedure Name Priority Date/Time Associated Diagnosis Comments FILM LIBRARY STORAGE ONLY ULTRASOUND STUDY Routine 04/21/2011 8:00 PM EST documented in this encounter Results * FILM LIBRARY- STORAGE ONLY ULTRASOUND STUDY (04/21/2011 8:00 PM EST) 04/21/2011 8:00 PM EST Narrative RAD - 08/20/2013 1:45 PM EDT This is a non-reportable exam. Procedure Note Fuentes Puente - 08/20/2013 This is a non-reportable exam. Jc Carpenter MD G FILM LIBRARY ORD ERABLES [facility] [address] [facility] [place] [address] documented in this encounter Visit Diagnoses Not on filedocumented in this encounter Care Teams Prosthetics Assistant Relationship Specialty Start Date End Date Marlon Levine MD [address] [place] [address] PCP - General 02/16/10 06/19/12 documented as of this encounter
--- OUTSIDE RECORDS SUMMARY | 2023-11-09 16:24 | XMS_ITS | Encounter Summary ---
Author Organization [facility] Address [address] [place] [address] Care Team Providers Care Commercial Technician Name Role Phone Marlon Levine MD Primary Care Provider [phone] Reason for Visit * Reason Onset Date Comments Results 07/28/2022 Encounter Details Date Type Department Care Team (Late st Contact Info) Description 07/28/2022 Telephone [facility] Hematology & Oncology - [facility] [address], [place] [id number] Dick Burt MS [address] [place], [place] [id number] Results Social History Tobacco Use Types Packs/Day [...] encounter Miscellaneous Notes * Telephone Encounter - Dick Burt MS - 07/28/2022 4055 EDT Spoke to Antonia regarding genetic test results. 47 genes were analyzed and there were no abnormal findings. A copy of the results were mailed and a copy is scanned into the EMR. A summary letter will be sent with recommendations for screening and prevention. DICK BURT MS documented in this encounter Plan of Treatment Not on file documented as of this encounter Visit Diagnoses Not on filedocumented in this encounter Care Teams Commercial Technician Relationship Specialty Start Date End Date Marlon Levine MD [address] [place] [address] PCP - General 06/17/12 documented as of this encounter
--- OUTSIDE RECORDS SUMMARY | 2023-11-09 16:24 | XMS_ITS | Encounter Summary ---
Author Organization [facility] Address [address] [place] [address] Care Team Providers Care Business Applications Specialist Name Role Phone Unknown, Provider MD Primary Care Provider Encounter Details Date Type Department Care Team (Late st Contact Info) Description 07/26/2008 8:33 EDT - 07/26/2008 15:32 EDT Emergency [facility] Emergency Department - [address] [phone] Emergency, Default, MD Discharge Disposition: Home or Self Care Social History Tobacco Use Types Packs/Day Years Used Date Smoking Tobacco: Never Assessed Sex and Gender Information Value Date Recorded Sex Assigned at Not on file Gender Identity Not on file Sexual Orientation Not on file documented as of this encounter Discharge Disposition Disposition Code Departure Means Destination Home or Self Care documented in this encounter Plan of Treatment Not on file documented as of this encounter Procedures Procedure Name Priority Date/Time Associated Diagnosis Comments BACTERIAL CULTURE/SMEAR, FLUID Routine 07/26/2008 13:04 EDT URINALYSIS WITH MICROSCOPIC IF POSITIVE Routine 07/26/2008 11:50 EDT UA REFLEX Routine 07/26/2008 11:50 EDT URINE CULTURE IF POSITIVE Routine 07/26/2008 11:50 EDT RAD US DOPPLER UPPER EXTREMITY VENOUS UNILATERAL 07/26/2008 10:57 EDT CHEST PA AND LATERAL 07/26/2008 9:42 EDT SCREENING GLUCOSE Routine 07/26/2008 9:3 2 EDT PTT Routine 07/26/2008 9:32 EDT PROTIME Routine 07/26/2008 9:32 EDT COMPLETE BLOOD COUNT AND DIFFERENTIAL Routine 07/26/2008 9:32 EDT BUN Routine 07/26/2008 9:32 EDT CREATININE Routine 07/26/2008 9:32 EDT HEPATIC FUNCTION PANEL (ALB,ALK PHOS,ALT,AST,DBIL,TOT WILNER,TOT PROT) Routine 07/26/2008 9:32 EDT ELECTROLYTES Routine 07/26/2008 9:32 EDT BACTERIAL CULTURE, BLOOD Routine 07/26/2008 9:25 EDT BACTERIAL CULTURE, BLOOD Routine 07/26/2008 9:05 EDT documented in this encounter Results * BACTERIAL CULTURE/SMEAR, FLUID (07/26/2008 13:04 EDT) Specimen Description Fluid Right Axillary seroma Specimen submitted in a syringe 7 mls [facility] Gram Smear Result Polys present Gram positive cocci present , intraleukocytic organisms seen [facility] Result Mod STREPTOCOCCUS, ALPHA HEMOLYTIC [facility] Report Status Final 07/28/2008 [facility] 07/26/2008 13:0 4 EDT 07/26/2008 13:04 EDT Default Emergency MD MICROBIOLOGY - GENE [facility] ORDERABLES [facility] [address] [place] [address] * UA REFLEX (07/26/2008 11:50 EDT) UA Billing Microscopic not indicated. [facility] 07/26/2008 11:5 0 EDT 07/26/2008 13:18 EDT Default Emergency MD URINALYSIS ORDERABL ES Performing Organization Address [facility] de Phone Number [facility] [address] [place] [address] * (ABNORMAL) URINALYSIS, CHEMICAL (07/26/2008 11:50 EDT) Color, UA Yellow [facility] Clarity, UA Hazy [facility] Glucose, UA Norm NORM [facility] Bilirubin, UA Neg NEG [facility] Ketones, UA Neg NEG [facility] Specific [place], Urine 1.015 1.005 - 1.02 [facility] Blood, UA Neg NEG [facility] pH, UA 7.0 5.0 - 9.0 [facility] Protein, UA Neg NEG [facility] Urobilinogen, Urine 1.0(A) NORM mg/dL [facility] Nitrite, UA Neg NEG [facility] Leuk Esterase Neg NEG [facility] 07/26/2008 11:5 0 EDT 07/26/2008 13:18 EDT Default Emergency URINALYSIS ORDERABL ES Performing Organization Address [facility] de Phone Number [facility] [address] [place] [address] * CULTURE IF UA POSITIVE (07/26/2008 11:50 EDT) Culture if Indicated Culture not indicated by urinalysis results. [facility] 07/26/2008 11:5 0 EDT 07/26/2008 13:18 EDT Default Emergency MD MICROBIOLOGY - GENE RAL ORDERABLES Performing Organization Address [facility] de Phone Number [facility] [address] [place] [address] * RAD US DOPPLER UPPER EXTREMITY VENOUS UNILATERAL (07/26/2008 10:57 EDT) Anatomical Region Laterality Modality Other 07/26/2008 10:5 7 EDT 07/26/2008 20:12 EDT Narrative 07/26/2008 20:12 EDT RAD US DOPPLER UPPER EXTREMITY VENOUS UNILATERAL ??July 26, 2008 10:57:00 AM Indication: H/O breast CA on chemo. now with right arm axillary pain with axillary node resection and seroma. Comparison: None Duplex evaluation of the deep veins of the right upper extremity was performed. The right basilic, internal jugular, subclavian, cephalic, and brachial veins are patent, with normal Doppler flow, normal respiratory phasicity, normal augmentation to distal compression, and except for the subclavian vein which is not accessible, are fully compressible. A complex predominantly cystic lesion is noted in the axilla, in the area of palpable lump, measuring 3.3 x 2.7 x 3.8 cm. This lesion demonstrates posterior acoustic enhancement has a thick wall, internal septations, and no internal vascularity. This appearance is consistent with either a lymphocele, resolving hematoma, or abscess. Impression: No evidence of deep venous thrombosis in the right upper extremity. Complex cystic lesion in the axilla may represent an abscess given clinical statement. A resolving hematoma or lymphocele are not excluded. The lesion is amenable to percutaneous drainage if desired. ?? Case was reviewed with MAJ DYKES at the time of interpretation I have personally reviewed the images and the above interpretation and agree with the findings. Procedure Note Felipe Barron MD / Felipe Barron MD / Felipe Barron MD - 07/28/2008 RAD US DOPPLER UPPER EXTREMITY VENOUS UNILATERAL July 26, 2008 10:57:00 AM Indication: H/O breast CA on chemo. now with right arm axillary pain with axillary node resection and seroma. Comparison: None Duplex evaluation of the deep veins of the right upper extremity was performed. The right basilic, internal jugular, subclavian, cephalic, and brachial veins are patent, with normal Doppler flow, normal respiratory phasicity, normal augmentation to distal compression, and except for the subclavian vein which is not accessible, are fully compressible. A complex predominantly cystic lesion is noted in the axilla, in the area of palpable lump, measuring 3.3 x 2.7 x 3.8 cm. This lesion demonstrates posterior acoustic enhancement has a thick wall, internal septations, and no internal vascularity. This appearance is consistent with either a lymphocele, resolving hematoma, or abscess. Impression: No evidence of deep venous thrombosis in the right upper extremity. Complex cystic lesion in the axilla may represent an abscess given clinical statement. A resolving hematoma or lymphocele are not excluded. The lesion is amenable to percutaneous drainage if desired. Case was reviewed with MAJ DYKES at the time of interpretation I have personally reviewed the images and the above interpretation and agree with the findings. Maj Lamont [facility] US ORDERABLES * CHEST PA AND LATERAL (07/26/2008 9:42 EDT) Anatomical Region Laterality Modality Other 07/26/2008 9:42 EDT 07/26/2008 10:06 EDT Narrative 07/26/2008 10:06 EDT CHEST PA AND LAT ??July 26, 2008 9:42:00 AM Signs and Symptoms: ??breast cancer, fever on chemo. R/O PNA. Impression: 1. No pneumonia identified. Comparison: Since 15 February 2006 the left chest wall port is new with the tip in the mid SVC. The dextroscoliosis is unchanged. No pleural effusion. No infiltrative lung change. Procedure Note 07/28/2008 CHEST PA AND LAT July 26, 2008 9:42:00 AM Signs and Symptoms: breast cancer, fever on chemo. R/O PNA. Impression: 1. No pneumonia identified. Comparison: Since 15 February 2006 the left chest wall port is new with the tip in the mid SVC. The dextroscoliosis is unchanged. No pleural effusion. No infiltrative lung change. Maj Lamont [facility] ORDERABLES * (ABNORMAL) PTT (07/26/2008 9:32 EDT) PTT 112(HH) 20 - 35 secs [facility] Comment: Therapeutic Heparin range: ?? 60-100 seconds Sample retested, result confirmed Blood specimen (specimen) 07/26/2008 9:32 EDT 07/26/2008 9:32 EDT Default Emergency MD HEMATOLOGY & PF4 OR DERABLES Performing Organization Address [facility] de Phone Number [facility] [address] [place] [address] * (ABNORMAL) PROTIME (07/26/2008 9:32 EDT) Pro Time 15.2(H) 12.0 - 15.0 secs [facility] I.N.R. 1.2(H) 0.9 - 1.1 Ratio [facility] Comment: Moderate Intensity Coumadin INR = 2.0-3.0 Adjustments in anticoagulant therapy dose should be based upon the INR and NOT the Pro Time. Blood specimen (specimen) 07/26/2008 9:32 EDT 07/26/2008 9:32 EDT Default Emergency MD HEMATOLOGY & PF4 OR DERABLES Performing Organization Address [facility] de Phone Number [facility] [address] [place] [id number] * (ABNORMAL) LIVER FUNCTION TESTS (07/26/2008 9:32 EDT) Albumin 4.0 3.4 - 4.9 g/dl [facility] Total Protein 6.1(L) 6.5 - 8.3 g/dl [facility] Alkaline Phosphatase 82 38 - 126 U/L [facility] ALT 12 9 - 52 U/L [facility] AST 16 15 - 46 U/L [facility] Unconjugated Bilirubin 1.6(H) 0.1 - 1.1 mg/dl [facility] Conjugated Bilirubin 0.0 0.0 - 0.3 mg/dl [facility] Bilirubin, Total 1.4(H) 0.2 - 1.3 mg/dl [facility] Blood specimen (specimen) 07/26/2008 9:32 EDT 07/26/2008 9:32 EDT Default Emergency MD CHEMISTRY & BLOOD G ORDERABLES Performing Organization Address [facility] de Phone Number [facility] [address] [place] [address] * (ABNORMAL) SCREENING GLUCOSE (07/26/2008 9:32 EDT) Pathologist [facility] Glucose, Screening 105(H) 70 - 100 mg/dl [facility] Blood specimen (specimen) 07/26/2008 9:32 EDT 07/26/2008 9:32 EDT Default Emergency MD CHEMISTRY & BLOOD G ORDERABLES Performing Organization Address [facility] Co de Phone Number [facility] [address] [place] [address] * (ABNORMAL) CREATININE (07/26/2008 9:32 EDT) Pathologist [facility] Creatinine 0.60(L) 0.7 - 1.5 mg/dl [facility] GFR, Calculated >60 ml/min/1.7 3m2 [facility] Blood specimen (specimen) 07/26/2008 9:32 EDT 07/26/2008 9:32 EDT Default Emergency MD CHEMISTRY & BLOOD G ORDERABLES Performing Organization Address [facility] de Phone Number [facility] [address] [place] [address] * BUN (07/26/2008 9:32 EDT) Pathologist [facility] BUN 13 10 - 26 mg/dl [facility] Blood specimen (specimen) 07/26/2008 9:32 EDT 07/26/2008 9:32 EDT Default Emergency MD CHEMISTRY & BLOOD G ORDERABLES Performing Organization Address [facility] Co de Phone Number [facility] [address] [place] [address] * (ABNORMAL) ELECTROLYTES (07/26/2008 9:32 EDT) Sodium 135(L) 136 - 145 mEq/L [facility] Potassium 3.8 3.5 - 5.0 mEq/L [facility] Chloride 102 96 - 110 mEq/L [facility] CO2 27 24 - 32 mEq/L [facility] Blood specimen (specimen) 07/26/2008 9:32 EDT 07/26/2008 9:32 EDT Default Emergency MD CHEMISTRY & BLOOD G ORDERABLES [facility] [address] [place] [address] * (ABNORMAL) HEMAGRAM AND DIFFERENTIAL (07/26/2008 9:32 EDT) WBC 7.32 4.0 - 12.4 K/cmm [facility] RBC 2.82(L) 3.86 - 5.04 M/cmm [facility] Hemoglobin 10.1(L) 11.6 - 15.2 gm/dl [facility] HCT 28.7(L) 34.9 - 44.4 % [facility] MCV 102(H) 81 - 98 fl [facility] MCH 36.0(H) 26.7 - 33.3 pg [facility] MCHC 35.4 32.1 - 35.9 gm/dl [facility] PLT 147 141 - 320 K/cmm [facility] RDW-CV 16.0(H) 11.7 - 14.6 % [facility] Neutrophils 92.4(H) 45.5 - 79.7 % [facility] Lymphocytes 2.4(L) 15.0 - 46.8 % [facility] Monocytes 4.3 1.8 - 12.0 % [facility] Eosinophils 0.8 0.6 - 6.9 % [facility] Basophils 0.1(L) 0.2 - 1.4 % [facility] ABS Neutrophils 6.77 2.20 - 8.85 K/cmm [facility] ABS Lymphs 0.17(L) 1.09 - 3.30 K/cmm [facility] ABS Monocytes 0.31 0.1 - 0.8 K/cmm [facility] ABS Eosinophils 0.06 0.03 - 0.61 K/cmm [facility] ABS Basophils 0.01 0.01 - 0.11 K/cmm [facility] Type of Diff: Automated [facility] Blood specimen (specimen) 07/26/2008 9:32 EDT 07/26/2008 9:32 EDT Default Emergency MD PACKAGES & DNA PROB E ORDERABLES Performing Organization Address [facility] Co de Phone Number [facility] [address] [place] [address] * BACTERIAL CULTURE, BLOOD (07/26/2008 9:25 EDT) Specimen Description Blood Draw site not indicated. [facility] Result No growth [facility] Report Status Final [id number] [facility] Blood specimen (specimen) 07/26/2008 9:25 EDT 07/26/2008 11:03 EDT Default Emergency MICROBIOLOGY - GENE RAL ORDERABLES Performing Organization Address [facility] de Phone Number [facility] [address] [place] [address] * BACTERIAL CULTURE, BLOOD (07/26/2008 9:05 EDT) Specimen Description Blood Draw site not indicated. [facility] Result No growth [facility] Report Status Final [id number] [facility] Blood specimen (specimen) 07/26/2008 9:05 EDT 07/26/2008 11:02 EDT Default Emergency MICROBIOLOGY - GENE RAL ORDERABLES Performing Organization Address [facility] Co de Phone Number [facility] [address] [place] [address] documented in this encounter Visit Diagnoses Not on filedocumented in this encounter Care Teams Business Applications Specialist Relationship Specialty Start Date End Date Unknown, Provider, PCP - General 07/26/08 06/16/12 documented as of this encounter
--- OUTSIDE RECORDS SUMMARY | 2023-11-09 16:24 | XMS_ITS | Encounter Summary ---
Author Organization [facility] Address [facility] [place] [address] Care Team Providers Care Disc Recordist Name Role Phone Marlon Levine MD Primary Care Provider [phone] Reason for Visit * Reason Onset Date Comments Other 10/07/2010 appt with nutrit ionist Encounter Details Date Type Department Care Team (Late st Contact Info) Description 10/07/2010 Telephone Hematology Oncology at [address] [phone] John Beltran MD 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 She decided to keep a diary on her own and her and can see how she is doing at her 4 m f/u. documented in this encounter Plan of Treatment Not on file documented as of this encounter Visit Diagnoses Not on filedocumented in this encounter Care Teams Disc Recordist Relationship Specialty Start Date End Date Marlon Levine MD [address] [place] [address] PCP - General 02/16/10 06/19/12 documented as of this encounter
--- OUTSIDE RECORDS SUMMARY | 2023-11-09 16:24 | XMS_ITS | Encounter Summary ---
Author Organization [facility] Address [address] [place] [address] Care Team Providers Care Micro Computer Specialist Name Role Phone Marlon Levine MD Primary Care Provider [phone] Encounter Details Date Type Department Care Team (Late st Contact Info) Description 03/02/2018 Results Only [facility] [phone] Svetlana Cavanaugh MD [address] [place] [address] Social History Tobacco Use Types Packs/Day Years [...] Priority Date/Time Associated Diagnosis Comments SURGICAL PATHOLOGY Routine 03/02/2018 16 :46 EST documented in this encounter Results * SURGICAL PATHOLOGY (03/02/2018 16:46 EST) Pathology Report: SURGICAL PATHOLOGY REPORT Reports generated via electronic interface contain original data; however they are lacking the format of the original report. Caution should be taken when reading/interpret ing unformatted reports. Name: ? BILLIE JENNINGS ? Accession #: ? [id number] ? : ? 1970 (Age: 47) ??F ? Collect Date: ? 03/02/2018 ? Location: ? [facility] ? Receive Date: ? 03/02/2018 ? Provider: SVETLANA CAVANAUGH MD Copy to: ANAT Jessica ROMY ENGINEERING OPERATOR ? Final Pathologic Diagnosis: ENDOCERVIX, CURETTAGE: - Benign endocervical tissue and small detached fragment of benign squamous mucosa. Document reviewed and electronically signed by: JOSE VERDE MD Report ??Date: 03/05/2018 15:44 By the signature above, the attending physician certifies that he/she has personally conducted a gross and/or microscopic examination of the described specimens and rendered or confirmed the above diagnosis. Specimen(s) Received: Endocervical curettage Clinical History: 01/19/18 Pap ASCUS (-) HPV; LMP: 2014 Gross Description: ? Received in formalin labelled with proper patient identification (initials D, P) and endocervical curettage is an aggregate of scant tomas-brown tissue fragments and predominantly mucoid material (0.3 x 0.6 x 0.6 cm). Tissue may not survive processing. Submitted in toto in 1. Dr. Hercules 03/03/2018 10:00 AM End of Report [facility] 03/02/2018 16:4 6 EST 03/02/2018 16:46 EST Svetlana Cavanaugh MD PATHOLOGY ORDERABLES [facility] [address] [place] [address] documented in this encounter Visit Diagnoses Not on filedocumented in this encounter Care Teams Micro Computer Specialist Relationship Specialty Start Date End Date Marlon Levine MD [address] [phone] PCP - General 06/17/12 documented as of this encounter
--- OUTSIDE RECORDS SUMMARY | 2023-11-09 16:24 | XMS_ITS | Encounter Summary ---
Author Organization [facility] Address [address] [place] [address] Care Team Providers Care Home And Family Living Professor Name Role Phone Marlon Levine MD Primary Care Provider [phone] Encounter Details Date Type Department Care Team (Late st Contact Info) Description 01/06/2020 Lab Requisition [facility] Pathology & Laboratory Medicine - [facility] [address] [place] [address] Mauro Garcia MD [address] [place] [phone] Encounter for other general examination Social History Tobacco Use Types Packs/Day Years [...] Procedure Name Priority Date/Time Associated Diagnosis Comments PAP TEST Today 01/03/2020 13:45 EDT Encounter for other general examination HPV DNA DETECTION WITH GENOTYPING, PCR Today 01/03/2020 13:45 EDT Encounter for other general examination documented in this encounter Results * HUMAN PAPILLOMAVIRUS (HPV) DETECTION-HIGH RISK TYPES (01/03/2020 13:45 EDT) HPV other High Risk types, PCR Negative Negative 01/14/2020 15:15 EDT [facility] Comment:No E6 or E7 mRNA is detected from HPV types 16,18,31,33,35,39,45,51,52,56,58,59,66, and 68 by records associate mediated amplification. Papanicolaou smear specimen (specimen) CERVIX UTERI STRUCTURE / Unknown 01/03/2020 13:45 EDT 01/13/2020 11:17 EDT Mauro Garcia MD MICROBIOLOGY - GENER AL ORDERABLES [facility] [address] [place] [address] * PAP TEST (01/03/2020 13:45 EDT) Specimens A. Cervix and/or Endocervix , ThinPrep Imaging System with Manual Evaluation 01/14/2020 15:15 T [facility] Specimen Adequacy Satisfactory for Evaluation - transformation zone component present 01/14/2020 15:15 [facility] General Categorization Negative for intraepithelial lesion or malignancy 01/14/2020 15:15 [facility] Attestation . 01/14/2020 15:15 [facility] at 1515 Clinical History See below 01/14/20 15:15 T [facility] HPV The result for the Human Papillomavirus (HPV) Detection-High Risk Types is Negative. No E6 or E7 mRNA is detected from HPV types 16,18,31,33,35,39 ,45,51,52,56,58,5 9,66, and 68 by records associate mediated amplification.Clarissa ting was performed on specimen [id number] and was resulted on 01/14/2020 1507 EDT by MITCHEL, LAB INSTRUMENT RESULTS IN 01/14/2020 15:15 T [facility] Performing Lab [facility] 01/14/2020 15:15 T [facility] Scanned Images 01/14/2020 15:15 T [facility] Papanicolaou smear specimen (specimen) CERVIX UTERI STRUCTURE / Unknown 01/03/2020 13:45 EDT 01/06/2020 11:03 EDT Mauro Garcia MD PATHOLOGY ORDERABLES [facility] [address] [place] [address] documented in this encounter Visit Diagnoses Diagnosis Encounter for other general examination documented in this encounter Care Teams Home And Family Living Professor Relationship Specialty Start Date End Date Marlon Levine MD [address] [place] [id number] PCP - General 06/17/12 documented as of this encounter
--- OUTSIDE RECORDS SUMMARY | 2023-11-09 16:24 | XMS_ITS | Encounter Summary ---
Author Organization [facility] Address [address] [place] [address] Care Team Providers Care Insulation Professional Name Role Phone Unknown, Provider Primary Care Provider [phone] Encounter Details Date Type Department Care Team (Late st Contact Info) Description 02/15/2005 Before PRISM Converted Visit (Maple) [facility] - Maple conversion [address] [place] [address] Deep Rutherford MD MSc [address] [place] [phone] Social History Tobacco Use Types Packs/Day Years Used Date Smoking Tobacco: Never Assessed Sex and Gender Information Value Date Recorded Sex Assigned at Not on file Gender Identity Not on file Sexual Orientation Not on file documented as of this encounter Consult Notes * Deep Rutherford MD - 05/27/2009 1234 EST [facility] CONSULTATION - Reason for consultation: Left breast suspected cancer. History of present illness: The patient is a 34-year-old healthy female who obtained a normal baseline mammogram at the age of 31 due to a positive family history of breast cancer. This mammogram wasreported to be negative. The patient occasionally performs self-breast exams, and recently noted a lump in the left breast approximately one month ago while in the shower. Since noticing this mass, there have been no definitive changes in terms of size or tenderness, and there have been no other masses or other symptoms in the breast including breast pain. Since finding the mass, she has attempted and has been able to express fluid from the leftnipple. The patient ultimately underwent breast imaging which revealed a highly-suspicious mass in the left breast approximately 2 cm in greatest dimension at the 12:00 position. The patient did not receive any biopsies and was sent for evaluation [facility]. She has no personal history of breast cancer or radiation to the chest wall. Past medical history: The patient denies any past medical conditions including hypertension or diabetes. Surgical history: The patient had bilateral tubal ligation nine years ago. She had bunions removed from both feet many years ago. Medications: Vitamins. Allergies: No known drug, latex, or food allergies. Social history: The patient has never smoked. She has an occasional alcoholic drink approximately once a month. She denies any drug use. 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 She is and lives at home with her and daughter. ASH KIER BOILER history: Menarche at age 12. The patient continues to have regular menstrual cycles. with delivery at age 22. The patient's LMP was 02/05/05. She is scheduled for pelvic examination in 02/28. The patient denies any fertility drug use. She has a [id number] of oral control pill use. She has no hormone replacement therapy use. Family history The patient's sister was diagnosed with left breast cancer at the age of 38. Her maternal grandfather had prostate cancer in his late 60s. Her paternal grandmother had breast cancer diagnosed in her 70s. A paternal great grandmotherhad breast cancer in her 30s. Review of systems Constitutional: The patient denies any fevers, chills, night sweats, weight loss,or lack of appetite. ENT: She denies any tinnitus, sinus pain, rhinorrhea, oral sores, dysphagia. Respiratory: Deniesany persistent cough, breathing difficulties, or respiratory disorders. : No kidney or bladder problems. No dysuria, frequency, or incontinence. Skin: No history of skin disorders,rash, or itching. Neurologic: She denies any headaches, confusion, or memory changes. Lymphatics: No swollen glands, no tender lymph nodes, no upper or lower extremity swelling. Ophthalmologic: No eye pain, no visual disturbances, or blurred vision. Cardiac: The patient denies any chest pain or palpitations or angina. Peripheral vascular: The patient has possible diagnosis of Raynaud's for which workup is pending. Otherwise she denies any rest pain or claudication. GI: The patient denies any nausea, vomiting, dysphagia, constipation, diarrhea, or abdominal pain. Musculoskeletal: The patient denies any extremity pain, back pain, arthritic-type pain, or muscle dysfunction. Endocrine: The patient denies any thyroid disorders or diabetes, heat or cold intolerances, agitation, or lack of energy. Hematologic: Denies any blood clots or bleeding disorders. Psychiatric: No mood or emotional disorders. No depression or anxiety. O: On physical examination temp is 99.9, BP 132/80, pulse 74. Her general appearance is that of an age-appropriate, healthy female, comfortable, and in no acute distress. HEENT: Pupils are equal, round, and reactive to light. Visual peters are grossly intact. Extraocular muscles are intact. No cervical, supraclavicular, or infraclavicular adenopathy. Thyroid is normalto palpation. No intraoral lesions. Pulmonary: Clear bilateral lung peters with no wheeze or rales. Cardiac: Regular rate and rhythm, no murmurs. Abdomen: Soft, nontender in all four quadrants. No palpable organomegaly. Extremities: No evidence of edema. Normal strength. Neuro: Motor and sensory function grossly intact. Back: No spinal tenderness or palpable deformation. Skin: No generalized diffuse rash, no ulcerations, or skin irritation identified. Breasts: Inspection of bilateral breasts: Moderate in size, normal in shape, symmetrical. There areno abnormalities associated with the overlying skin of either breast or of the nipple areolar complexes. On palpation the right breast is found to be free of any palpable lesions, suspicious nodularity, or thickening. The nipple areolar complex appears normal with no nipple discharge. On palpation of the left breast there is a palpable lesion at the 12:00-12:30 region approximately 2 cm in greatest diameter that is firm, slightly mobile, and nontender. There are no other distinct masses, nodularity, or thickening palpated in the left breast. The nipple areolar complex appears normal with milky nipple discharge on expression (this was sent for both cytology and Hemoccult testing). Left breast ultrasound done during clinical exam reveals a large, irregular-bordered mass in theleft breast, 12:00-12:30 position. There is prominent acoustic shadowing. Axilla: No palpable adenopathy in left or right axilla. Diagnostics: Outside report from [facility] mammography dated 02/11/05 revealed an area of pleomorphic microcalcifications in the central medial portion of the left breast which was reportedly not present on previous examination in 11/26. Ultrasound of this area showed a 2.1 cm in greatest diameter, irregular mass with suggestion of spiculation and posterior acoustic shadowing and internal calcifications consistent with carcinoma. Category 5, highly suspicious. A/P: This is a 34-year-old female presenting with a palpable mass in the left breast, thought to behighly suspicious for a carcinoma on breast imaging. No prior tissue diagnosis had been made. A core biopsy was obtained during today's consultation. Given the overall clinical presentation, I thought it advisable to proceed with a working diagnosisof early stage left breast cancer. We will follow-up on the results of the pathology and contact the patient with the final reading. It is my recommendation, however, given the overall clinical presentation, positive family history, and highly suspicious findings onbreast imaging, that regardless of the result of the core biopsy, to proceed with surgical excision. If the core biopsy confirms carcinoma, the surgery will involve wide local excision, sentinel lymph node biopsy, and possible axillary lymph node dissection. The approach to breast cancer with mastectomy versus breast conserving surgery was explained. The patientwas informed of the role of radiation oncology with breast conserving surgery. She was also explained the role and potential use of systemic therapy depending on the wilver status and final characteristics of the tumor. She was amenable to proceed with breast conserving surgery for breast cancer. In the case of a negative/benign finding on core biopsy, I would still be very cautious to dismiss the possibility of a breast carcinoma. Although breast cancer is statistically less common in her age, I would be concerned given the findings on imaging, positive family history, and overall clinicalpresentation. A negative biopsy may respresent a sampling error which is a knownphenomenon. In thiscase, I would perform an excisional biopsy of the left breast mass and obtain an intraoperative pathology evaluation. This would be followed with a sentinel lymph node biopsy and possible axillary lymph node dissection if cancer is confirmed. If cancer is found only on final pathology after the surgery, then there is data supporting the feasibility and reliability of sentinel lymph node biopsy after lumpectomy and this would be explored. The patient will receive a routine standard preoperative workup. Arrangements will be made for her to speak with radiation oncology and medical oncology prior to definitive surgery. The patient will also meet with the clinical trial nurse during today's evaluation. The nature of the procedure including the indications, benefits, risks, alternatives, and long-term management were explained. The patient expressed comprehension and informed consent was obtained. The patient will meet with the recreation program coordinator to select a date for surgery. Signed by Deep Rutherford MD 02/21/2005 16:34 Timoteo Foster MD Deep Rutherford MD - Deep Rutherford MD P - KKB Job ID: [id number] Document ID: [id number] cc: Cami Louis MD Cancer Data Registry Marlon Levine MD cc: Cami Louis MD Cancer Data Registry Marlon Levine MD documented in this encounter Plan of Treatment Not on file documented as of this encounter Visit Diagnoses Not on filedocumented in this encounter Care Teams Insulation Professional Relationship Specialty Start Date End Date Unknown, Provider, PCP - General 07/26/08 06/16/12 documented as of this encounter
--- OUTSIDE RECORDS SUMMARY | 2023-11-09 16:24 | XMS_ITS | Encounter Summary ---
Author Organization [facility] Address [address] [place] [address] Care Team Providers Care Account Classification Clerk Name Role Phone Marlon Levine MD Primary Care Provider [phone] Encounter Details Date Type Department Care Team (Late st Contact Info) Description 11/16/2015 Results Only [facility] [phone] Mary Alice Ruby MD [address] [place] [address] [place] [address] Social History Tobacco Use Types Packs/Day Years [...] Date/Time Associated Diagnosis Comments SURGICAL PATHOLOGY Routine 11/16/2015 8:48 EDT documented in this encounter Results * SURGICAL PATHOLOGY (11/16/2015 8:48 EDT) Pathology Report: SURGICAL PATHOLOGY REPORT Reports generated via electronic interface contain original data; however they are lacking the format of the original report. Caution should be taken when reading/interpreti ng unformatted reports. Name: ? BILLIE JENNINGS ? Accession #: ? [id number] ? : ? 1970 (Age: 45) ??F ? Collect Date: ? 11/16/2015 ? Location: ? [facility] ? Receive Date: ? 11/17/2015 ? Provider: MARY ALICE RUBY MD Copy to: MARLON LEVINE MD ? Final Pathologic Diagnosis: A. CERVIX, 12 O'CLOCK, BIOPSY: - ??High grade squamous intraepithelial lesion (DANTE II). B. CERVIX, 6 O'CLOCK, BIOPSY: - ??High grade squamous intraepithelial lesion (DANTE II and focal DANTE III). C. ENDOCERVIX, CURETTAGE: - ??Scant strips of benign endocervical tissue. - ??Abundant cervical mucus. Document reviewed and electronically signed by: MIKEY CAZARES MD Report ??Date: 11/18/2015 16:47 By the signature above, the attending physician certifies that he/she has personally conducted a gross and/or microscopic examination of the described specimens and rendered or confirmed the above diagnosis. Specimen(s) Received: A. ??Cx bx at 12 o'clock B. ??Cx bx at 6 o'clock C. ??ECC Clinical History: LSIL Pap; LMP: 2 yrs; h/o chemo; h/o breast cancer; colpo Gross Description: A. ?Received in formalin labelled with proper patient identification (initials D, P) and cervix biopsy 12 o'clock is a single pink-tomas tissue fragment (0.2 x 0.2 x 0.2 cm). Submitted intact in A1. B. ?Received in formalin labelled with proper patient identification (initials D, P) and cervix biopsy 6 o'clock is a single pink-tomas tissue fragment (0.3 x 0.2 x 0.1 cm). Submitted intact in B1. C. ?Received in formalin labelled with proper patient identification (initials D, P) and ECC is an aggregate of translucent mucus (0.8 x 0.8 x 0.2 cm). Submitted in toto in C1 following filtration. Aiden Rosales 11/17/2015 10:42 AM End of Report [facility] 11/16/2015 8:48 EDT 11/17/2015 8:48 EDT Mary Alice Ruby MD PATHOLOGY ORDERABLES [facility] [address] [place] [address] documented in this encounter Visit Diagnoses Not on filedocumented in this encounter Care Teams Account Classification Clerk Relationship Specialty Start Date End Date Marlon Levine MD [address] [place] [id number] PCP - General 06/17/12 documented as of this encounter
--- OUTSIDE RECORDS SUMMARY | 2023-11-09 16:24 | XMS_ITS | Encounter Summary ---
Author Organization [facility] Address [address] [place] [address] Care Team Providers Care Movie Actor Name Role Phone Unknown, Provider Primary Care Provider [phone] Encounter Details Date Type Department Care Team (Late st Contact Info) Description 03/22/2005 Before PRISM Converted Visit (Maple) [facility] - Maple conversion [address] [place] [address] Valentina Farooq MD Social History Tobacco Use Types Packs/Day Years Used Date Smoking Tobacco: Never Assessed Sex and Gender Information Value Date Recorded Sex Assigned at Not on file Gender Identity Not on file Sexual Orientation Not on file documented as of this encounter Plan of Treatment Not on file documented as of this encounter Visit Diagnoses * Evaluation - Valentina Farooq MD - 05/28/2009 2112 EST DIVISION OF SURGICAL ONCOLOGY - [facility] NEW PATIENT EVALUATION - 03/22/2005 IDENTIFICATION: 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 Deep Rutherford regarding newly diagnosed left breast cancer. HPI: A 34-year-old, otherwise healthy, premenopausal white female in her usual state of good general health until 12/2004, when she noted a nontender palpable lump in her left breast while showering.Accompanying the palpable mass was the ability to express clearish-colored fluid from her left nipple. She had bilateral mammography coupled with a left breast ultrasound at on 02/11/2005. A suspicious-appearing grouping of innumerable pleomorphic microcalcifications was noted in the central medial portion of the left breast which had not been present on a previous baseline mammogram from11/2001. On the left breast ultrasound an approximate 2-cm irregular inhomogeneous mass with suggestion of spiculation with posterior acoustic shadowing in the area of the suspicious-appearing calcification on the mammogram was noted. Antonia was subsequently seen by Dr.Ted Rutherford at the [facility] on 02/15/2005. His physical exam at that time revealed a 2-cm firm, nontender palpable mass at the approximate 12 o'clock position of the left breast coupled with milky-appearing left-sided nipple discharge. No palpable lymphadenopathy in her axilla or supraclavicular regions were noted. Antonia underwent a left breast biopsy by Dr. Rutherford on 02/15/2005 which revealed benign breast tissue with a small focus of chronic inflammation. Nipple discharge cytology showed no malignant cells. Antonia had routine screening laboratories and a negative chest x-ray on 02/15/2005 as well. She underwent a left breast excisional biopsy coupled with sentinel lymph node biopsy under Dr. Rutherford' care at [facility] on 03/02/2005. Subsequent histopathology revealed poorly differentiated invasive ductal carcinoma from the left breast with a maximum tumor dimension of 2.9 cm. There were positive surgical resection margins medially. Approximately 10% of the tumor mass was DCIS, solid with focalnecrosis with microcalcifications and nuclear grade 3. Surgical resection margins were nega tive for DCIS. A total of 10 lymph nodes were removed, none of which were positive for carcinoma. No lymphovascular invasion was seen. Estrogen and progesterone receptor testing was performed, both of which were negative. C- erbB2 testing was also done which was also negative. She had a re-excision of the positive left lumpectomy margin, once again, under Dr. Rutherford's care at [facility] on 03/10/2005. Subsequent histopathology revealed negative surgical resection margins and no significant residual malignancy was present either from the posterior or inferior medial margins. She has had an uneventful postoperative recovery and comes to the [facility] in followup todayto meet with both radiation therapy via Dr. Marissa Garay in addition to myself from medical oncology. REVIEW OF SYSTEMS: On today's review of systems questioning, both verbally as well as on her written new patient evaluation form, she has a long list of no's . Her energy level is good as is her overall appetite and sense of well- being. She denies headache, mental status changes, diplopia, dysphagia, chest pain, abdominal pain, nausea/vomiting, palpation of any new lumps or bumps elsewhere, significantbony aches or pains, SOB, cough, significant changes in her bowel or bladder habits, past blood clots, or lower extremity edema. She still has some numbness and tingling in her left breast at the site of surgery and, I think there might be a little bitof fluid in there because I sense something sloshing around when I jump around . She has some modest sense of left arm tightness and has been working on exercises with her arm quite successfully. She has done some reading about breast cancer, I assume Iwill be talking to you about chemotherapy today , and I'm not sure if I want toget my chemotherapy here or over at [facility] which would definitely be closer...I know I want to get my breast radiation therapy there but I'm not quite certain yet about chemotherapy. PAST MEDICAL HISTORY: Status post tubal ligation 1996 and status post bunion surgery in the late . She is premenopausal and had one with subsequent delivery at age 22. She used oral contraceptives for about 5-6 years and has never had any HRT. MEDICATIONS: None. She does not use any OTC or herbal products. NKMA. SOCIAL HISTORY: , lives in [place]. 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 She has about two drinks per month and has never smoked. FAMILY HISTORY: Antonia has a sister who was diagnosed with breast cancer at around age 39 and is currently alive and well at age 43; My sister was[facility]diagn[facility] so that's why we have artie little bit hesitant to become involved with care there. By the time that they really figured out she had breast cancer, she'd had a really big problem with it with several positive lymph nodes. There is also breast cancer in her paternal grandmother in her late 70s, and she is apparently still alive and well, from a breast cancer standpoint, at age 85 although she appears to have significant dementia. There is mention of a paternal great-grandmotherwith breast cancer in her 30s in Dr. Rutherford'note, although I did not discuss this with Antonia nor did she write it down on her family history form. OBJECTIVE: Weight 167 pounds, height 5' 9-1/2 . BP 110/80, pulse 88, RR 16, and temp 99. General Appearance: Pleasant, attentive, healthy-appearing young white woman sitting quietly in her chair. HEENT exam shows normal hair, no facial pallor or temporal muscle wasting, white sclera, and clear oral cavity with good dentition. Thin neck without thyromegaly or LAD. No supraclavicular or axillary LAD is found on either side. Back without spinal or CVA tenderness. Lungs: Clear to A and P with a good inspiratory effort. CV exam with RRR and without significant murmur or gallop found. She has a beautiful and nicely healed lumpectomy scar in the upper-inner quadrant of her left breast; I do not ap preciate any palpable masses in the remainder of her left breast and no nipple discharge is noted. She is able to abduct her left arm to about 110 degrees relatively quickly and easily; there is no lymphedema present in her left arm. I did not examine her right breast. Soft, nontender abdomen without HSM or palpable masses. None of her joints appear acutely inflamed. Lower extremities without edema or rash. Alert, oriented times three. Makes good eye contact and full affect. Good muscle mass inher arms and legs. Fluent speech and normal gait. IMPRESSION: An otherwise healthy 34-year-old premenopausal white female with stage IIA (pT2, pN0sn,M0) poorly differentiated ductal carcinoma of the left breast diagnosed 02/2005, status post left lumpectomy with sentinel lymph node biopsy, ER and FL negative and HER-2/cynthia negative as well. She also has a quite significant positive family history especially in terms of a sister also withbreast cancer also diagnosed at a fairly young age in her late 30s. Given her node negativity, ER negativity, poorly differentiated grade, and pT2 primary, she has an approximate 75% ten year disease-free survival as estimated by tables by Willie. She would be an excellent candidate for participation in CAL[facility] [address]36 which looks at the use of either dose-dense AC versus Taxol or either two or three monthsduration in node-negative high-risk breast cancer. Outside of this clinical trial, I would probablyrecommend AC for four cycles administered either every three weeks or more likely every two weeks in dose- dense fashion with Neulasta growth factor support. Since she is both ER and FL negative, I would not recommend any adjuvant hormonal therapy. Since dex had a lumpectomy with clear surgical resection margins, I would also strongly endorse left breast radiation therapy to occur following completion of her adjuvant chemotherapy. Since she is HER-2/cynthia negative, I would not recommend any adjuvant Herceptin. Consideration should also be given to consultation with a Familial Cancer Program, which I openly and extensively discussed with her. Antonia thinks that her sister may have already hadgenetic testing performed although I think we need to find some further verification of this information. Should she be found to be either BRCA1 or BRCA2 positive, she might also give some consideration to prophylactic mastectomies and/or oophorectomy in her future. I do not feel strongly that she needs to have this consultation at present as she clearly wants some time to think about this more as well as to discuss it with her sister. PLAN: 1. I spent 75 minutes in mdbp-sd-euil contact with Antonia and her today with greater than 50% of that time spent in counseling. We thoroughly discussed her pathology report, stage IIA status, information about prognostic factors including her lymph node negativity/somewhat large breast primary, ER negativity and HER-2/cynthia negativity, theory behind use of adjuvant chemotherapy, explanation of ER negativity and no subsequent use of adjuvant hormonal therapy, and potential side effects associated with chemotherapy in general. We talked about CMF, AC, and Taxol as various chemotherapeutic agents used in adjuvant breast cancer care, in addition to information about q. 3 weeks versus q. 2 w eeks dose-dense administration of treatments. We did not spend any significant amount of time talking about participation in the CALGB clinical study as mentioned above, and I hope to cover this thoroughly with her on my next appointment with her. 2. I hope to see Antonia again in followup in about one week to 10 days. She was sent home with a general information booklet about both chemotherapy and radiation therapy, a catalog from the [employer] about wigs and scarves regarding chemotherapy-induced alopecia, and a copy of her pathology report in addition to a brochure about how to read her PATH report. 3. I asked Antonia and her to further decide where they would like to receive all of their different treatments including both chemotherapy and/or radiation therapy. If they do want to have therapy and further care done at in [facility] as staffed by [facility], I would be happy to arrange for suchconsultation to occur. Signed by Valentina Farooq MD 04/05/2005 08:31 Koby Farooq MDHematology / Oncology Attendingdevika Farooq MD Valentina Farooq MD Hematology / Oncology Attending - Valentina Farooq MD A - BC Job ID: [id number] Document ID: [id number] cc: MD Marissa Cline MD Ted A James, MD Timothy Tanner, MD documented in this encounter Care Teams Movie Actor Relationship Specialty Start Date End Date Unknown, Provider, PCP - General 07/26/08 06/16/12 documented as of this encounter
--- OUTSIDE RECORDS SUMMARY | 2023-11-09 16:24 | XMS_ITS | Encounter Summary ---
Author Organization [facility] Address [address] [place] [address] Care Team Providers Care Street Light Lamp Cleaner Name Role Phone Unknown, Provider Primary Care Provider [phone] Encounter Details Date Type Department Care Team (Late st Contact Info) Description 04/18/2011 Results Only [facility] Laboratory Services - [place] [id number] [place], [place] [id number] Maryann Gillespie, JAMIE Social History Tobacco Use Types Packs/Day Years Used Date Smoking Tobacco: Never Assessed Sex and Gender Information Value Date Recorded Sex Assigned at Not on file Gender Identity Not on file Sexual Orientation Not on file documented as of this encounter Plan of Treatment Not on file documented as of this encounter Procedures Procedure Name Priority Date/Time Associated Diagnosis Comments PAP TEST- RESULT ONLY Routine 04/18/2011 0:00 EST documented in this encounter Results * PAP TEST- RESULT ONLY (04/18/2011 0:00 EST) Pathology Report: CYTOPATHOLOGY REPORT Reports generated via electronic interface contain original data; however they are lacking the format of the original report. Caution should be taken when reading/interpreti ng unformatted reports. Name: ? STEPHENSONBILLIE Chanelle ? Accession #: ? [id number] ? : ? 1970 (Age: 40) ??F ?Collect Date: ? 04/18/2011 ? Location: ? [facility] ? Receive Date: ? 04/19/2011 ? Provider: MARYANN GILLESPIE AIR EXPORT LOGISTICS MANAGER Copy to: MORRIS CARTAGENA MD ? Final Report SPECIMEN ADEQUACY ? Satisfactory for Evaluation - transformation zone component present - scant squamous epithelial component secondary to excessive inflammation GENERAL CATEGORIZATION ? Negative for Intraepithelial Lesion or Malignancy ?? Last Menstural Period: 04/04/11 Hormonal/Contracep tive status: Intrauterine device: paraguard Treatment History: Chemotherapy: 7460-8110 Radiation therapy: 0684-2898 Other: Additional clinical information: pap 12/02 neg, pt hx of breast cancer in 5008-2341 Specimen/Source: ??Pap Test, Cervix/Endocervix, ThinPrep Imaging System with manual evaluation Document reviewed and electronically signed by: ? Landen Kramer, JENNIFER(ASCP) ? Report ??Date: 04/20/2011 16:45 HPV with Pap Test ? Date Ordered: ? 04/20/2011 ? Status: ?? Signed Out ?Date Complete: ? 04/26/2011 ? By: ??System Interface ? Date Reported: ? 04/26/2011 ? Interpretation RESULT: Negative for HPV types 16, 18, 31, 33, 35, 39, 45, 51, 52, 56, 58, 59, and 68. Comments Document reviewed and electronically signed by: ? System Interface ? Report date: 04/26/2011 By the signature above, the attending physician certifies that he/she has personally conducted a gross and/or microscopic examination of the described specimens and rendered or confirmed the above diagnosis. End of Report [facility] 04/18/2011 04/19/2011 Maryann Gillespie NP PATHOLOGY ORDERABLES [facility] [address] [place] [address] documented in this encounter Visit Diagnoses Not on filedocumented in this encounter Care Teams Street Light Lamp Cleaner Relationship Specialty Start Date End Date Unknown, Provider, PCP - General 07/26/08 06/16/12 documented as of this encounter
--- OUTSIDE RECORDS SUMMARY | 2023-11-09 16:24 | XMS_ITS | Encounter Summary ---
Author Organization [facility] Address [address] [place] [address] Care Team Providers Care Gate Guard Name Role Phone Unavailable Primary Care Provider Unavailabl e Encounter Details Date Type Department Care Team (Late st Contact Info) Description 02/24/2005 17:12 [facility] Hospital Encounter [address] [address] Marissa Garay MD PhD [address] [place] [address], [address] [place] [id number] Social History Tobacco Use Types Packs/Day Years [...]
--- OUTSIDE RECORDS SUMMARY | 2023-11-09 16:24 | XMS_ITS | Encounter Summary ---
Author Organization [facility] Address [address] [place] [address] Care Team Providers Care Engineer Name Role Phone Unavailable Primary Care Provider Unavailabl e Encounter Details Date Type Department Care Team (Late st Contact Info) Description 03/22/2005 11:04 [facility] Hospital Encounter [facility] [address] [place] [address] Deep Rutherford MD MSc [address] [place] [id number] Social History Tobacco Use Types Packs/Day Years [...] Priority Date/Time Associated Diagnosis Comments CYTOPATHOLOGY Routine 12/11/2007 0:00 EDT documented in this encounter Results * CYTOPATHOLOGY (12/11/2007 0:00 EDT) Pathology Report: CYTOPATHOLOGY REPORT ? Reports generated via electronic interface contain original data; ? however they are lacking the format of the original report. ? Caution should be taken when reading/interpreti ng unformatted reports. ? Name: ? BILLIE STEPHENSON ? Accession #: ? [id number] ? : ? 1970 (Age: 37) ??F ?Collect Date: ? 12/11/2007 ? Location: ? [facility] ? Receive Date: ? 12/11/2007 ? Provider: ?JERRI FABIÁN FLUTE POLISHER ? Copy to: ? Specimen/Source: ?ThinPrep Pap Test, Cervix/Endocervix, processed on Cytyc ThinPrep Imaging System, with manual evaluation ? Last Menstrual Period: ? 9/11/08 ? Treatment History: ? Miscellaneous treatment: Br. Ca Lumpectomy ? Chemotherapy ? Radiation therapy ? Other: ? HPVA - HPV testing requested if ASC-US on the current ThinPrep Pap test. ? SPECIMEN ADEQUACY ? Satisfactory for Evaluation ? - transformation zone component present ? GENERAL CATEGORIZATION ? Negative for Intraepithelial Lesion or Malignancy ? Document reviewed and electronically signed by: ? Jenna Rojo, CT(ASCP) ? Report Date: ??12/13/2007 14:50 ? End of Report ? YEISON MARINELLI 12/11/2007 12/11/2007 Jerri Bennett FLUTE POLISHER PATHOLOGY ORDERABLES [facility] [address] [place] [address] documented in this encounter Visit Diagnoses Not on filedocumented in this encounter
--- OUTSIDE RECORDS SUMMARY | 2023-11-09 16:24 | XMS_ITS | Encounter Summary ---
Author Organization [facility] Address [address] [place] [address] Care Team Providers Care Riding Silks Custodian Name Role Phone Unavailable Primary Care Provider Unavailabl e Encounter Details Date Type Department Care Team (Late st Contact Info) Description 02/15/2005 15:44 EST Hospital Encounter [facility] [address] [place] [address] Marlon Levine MD [address], [place] [id number] Deep Rutherford MD MSc [address] [place] [phone] Discharge Disposition: Auto Discharge Social History Tobacco [...] Associated Diagnosis Comments CHEST PA AND LATERAL 02/15/2005 16:45 EST documented in this encounter Results * CHEST PA AND LATERAL (02/15/2005 16:45 EST) Anatomical Region Laterality Modality Other 02/15/2005 16:4 5 EST Narrative 10/24/2008 4:35 EDT Left suspected breast Cancer PA AND LATERAL CHEST 02/15/05, 1630 HOURS CLINICAL HISTORY: Suspected left breast cancer. Rule out metastatic disease or any acute abnormalities for possible preop. FINDINGS: Two views of the chest with no old studies for comparison show clear lungs and normal ciera, taking into account that the patient has a slightly distorted mediastinum due to a significant dextroscoliosis centered on T8 measuring about 26 degrees. The pleural margins are clear. No lytic or blastic lesions of the bones are appreciated. There is no evidence of pneumonia or other acute finding. IMPRESSION: ? 1. ?? Clear lungs. ? 2. ?? Scoliosis. D 02/15/05 T 02/16/05 /sarah Procedure Note Rosangela Carrillo MD - 10/24/2008 Left suspected breast Cancer PA AND LATERAL CHEST 02/15/05, 1630 HOURS CLINICAL HISTORY: Suspected left breast cancer. Rule out metastatic disease or any acute abnormalities for possible preop. FINDINGS: Two views of the chest with no old studies for comparison show clear lungs and normal ciera, taking into account that the patient has a slightly distorted mediastinum due to a significant dextroscoliosis centered on T8 measuring about 26 degrees. The pleural margins are clear. No lytic or blastic lesions of the bones are appreciated. There is no evidence of pneumonia or other acute finding. IMPRESSION: 1. Clear lungs. 2. Scoliosis. D 02/15/05 T 02/16/05 /sarah Deep Rutherford MD MSc IMG DIAGNOSTIC IMAGI NG ORDERABLES documented in this encounter Visit Diagnoses Not on filedocumented in this encounter
--- OUTSIDE RECORDS SUMMARY | 2023-11-09 16:24 | XMS_ITS | Encounter Summary ---
Author Organization [facility] Address [address] [place] [address] Care Team Providers Care Fundraiser Name Role Phone Marlon Levine MD Primary Care Provider [phone] Encounter Details Date Type Department Care Team (Late st Contact Info) Description 10/25/2019 Lab Requisition [facility] Pathology & [place] [address] Outr Resulting Lab, Provider Social History Tobacco Use Types Packs/Day Years [...] Procedure Name Priority Date/Time Associated Diagnosis Comments SPEP, INCLUDES QUANTITATION OF MONOCLONAL SPIKE Routine 10/25/2019 12:21 EDT documented in this encounter Results * (ABNORMAL) SPEP, INCLUDES QUANTITATION OF MONOCLONAL SPIKE (10/25/2019 12:21 EDT) Total Protein 6.9 6.3 - 8.2 g/dL 10/28/2019 12:23 EDT [facility] Albumin % 65.3 55.8 - 66.1 % 10/28/2019 12:23 EDT [facility] Alpha-1 % 5.3(H) 2.9 - 4.9 % 10/28/2019 12:23 EDT [facility] Alpha-2 % 9.4 7.1 - 11.8 % 10/28/2019 12:23 EDT [facility] Beta % 10.5 8.4 - 13.1 % 10/28/2019 12:23 EDT [facility] Gamma % 9.5(L) 11.1 - 18.8 % 10/28/2019 12:23 EDT [facility] SPEP Comment No apparent monoclonal protein seen on serum electrophoresis 10/28/2019 12:23 EDT [facility] Comment:See scanned/suppleme ntary report. Blood VENOUS BLOOD / Unknown 10/25/2019 12:21 EDT 10/25/2019 21:20 EDT Provider Outr Resulting Lab CHEMISTRY & BLOOD GAS ORDERABLES Performing Organization Address City/State/[facility] Co de Phone Number [facility] [address] [place] [address] documented in this encounter Visit Diagnoses Not on filedocumented in this encounter Care Teams Fundraiser Relationship Specialty Start Date End Date Marlon Levine MD [address] [place] [id number] PCP - General 06/17/12 documented as of this encounter
--- OUTSIDE RECORDS SUMMARY | 2023-11-09 16:24 | XMS_ITS | Referral Summary ---
Author Organization [facility] Address [address] [place] [address] Care Team Providers Care Puller Through Name Role Phone Marlon Levine MD Primary Care Provider [phone] Allergies Active Allergy Reactions Criticality Noted Date Comments Erythromycin 06/17/2012 Medications No known medications Social History Tobacco Use Types Packs/Day Years [...] 28.8 06/17/2012 1605 EDT Plan of Treatment Not on file Care Teams Puller Through Relationship Specialty Start Date End Date Marlon Levine MD [address] [place] [address] PCP - General 06/17/12
--- OUTSIDE RECORDS SUMMARY | 2023-11-09 16:24 | XMS_ITS | Encounter Summary ---
Author Organization [facility] Address [address] [place] [address] Care Team Providers Care Mobility Developer Name Role Phone Unknown, Provider Primary Care Provider Encounter Details Date Type Department Care Team (Late st Contact Info) Description 02/15/2005 Results Only [facility] Surgical Oncology - [facility] [address] [place] [address] Lamont Marroquin MD MSc [address] [place] [phone] Social History Tobacco Use Types Packs/Day Years Used Date Smoking Tobacco: Never Assessed Sex and Gender Information Value Date Recorded Sex Assigned at Not on file Gender Identity Not on file Sexual Orientation Not on file documented as of this encounter Plan of Treatment Not on file documented as of this encounter Procedures Procedure Name Priority Date/Time Associated Diagnosis Comments CYTOPATHOLOGY Routine 02/15/2005 0:00 EST SURGICAL PATHOLOGY Routine 02/15/2005 0:00 EST documented in this encounter Results * SURGICAL PATHOLOGY (02/15/2005 0:00 EST) Pathology Report: SURGICAL PATHOLOGY REPORT Reports generated via electronic interface contain original data; however they are lacking the format of the original report. Caution should be taken when reading/interpreti ng unformatted reports. Name: ? BILLIE LANCE ? Accession #: ? [id number] ? : ? 1970 (Age: 34) ??F ? Collect Date: ? 02/15/2005 ? Location: ? [facility] ? Receive Date: ? 02/15/2005 ? Provider: LAMONT MARROQUIN MD Copy to: MORRIS CARTAGENA MD ? Final Pathologic Diagnosis: ? Breast, left, needle core biopsies: - Benign breast tissue with small focus of chronic inflammation. ??See comment. Comment: ? Please correlate with clinical impression and imaging studies. ??On section (A2), there is a small detached focus of chronic inflammation which is not clearly associated with either a duct or parenchymal breast tissue. ??(Dr. Le)/[facility] Document reviewed and electronically signed by: JOSE VERDE MD Report ??Date: 02/16/2005 14:11 By the signature above, the attending physician certifies that he/she has personally conducted a gross and/or microscopic examination of the described specimens and rendered or confirmed the above diagnosis. Specimen(s) Received: ? Left, 2 cm Clinical History: ? Left suspected breast cancer Gross Description: ? Received in formalin labelled Lance is a single tomas-yellow, focally hemorrhagic core of fibrofatty tissue which measures 2.0 cm in length by 1.0 cm in diameter. ??Also separately received in the same container are three smaller nodular fragments of tomas-yellow, focally hemorrhagic tissue which range in size from 0.1 x 0.1 x 0.1 cm to 0.4 x 0.2 x 0.2 cm. ??The specimen is submitted entirely as (A1) and (A2). ??(Dr. Le)/[facility] End of Report [facility] 02/15/2005 02/15/2005 15: 17 EST Lamont Marroquin MD MSc PATHOLOGY ORDERABLES [facility] [address] [place] [address] * CYTOPATHOLOGY (02/15/2005 0:00 EST) Pathology Report: CYTOPATHOLOGY REPORT Reports generated via electronic interface contain original data; however they are lacking the format of the original report. Caution should be taken when reading/interpreti ng unformatted reports. Name: ? BILLIE LANCE ? Accession #: ? [id number] : ? 1970 (Age: 34) ??F ?Collect Date: ? 02/15/2005 Location: ? [facility] ? Receive Date: ? 02/15/2005 Provider: ? LAMONT MARROQUIN MD Copy to: ?MORRIS CARTAGENA MD ? CYTOLOGIC DIAGNOSIS: ? Nipple discharge, left, cytologic evaluation: - No malignant cells identified. ??See comment. ? COMMENT: ? Microscopic examination shows moderate numbers of normal foam cells, rare groups of small degenerating ductal cells, and a single group showing apocrine metaplasia. ??These findings are benign but do not exclude underlying papilloma. (Dr. Moreno)/[facility] Document reviewed and electronically signed by: ? IVANNA MORENO MD [facility] Report Date: ??02/16/2005 13:31 By the signature above, the attending physician certifies that he/she has personally conducted a gross and/or microscopic examination of the described specimens and rendered or confirmed the above diagnosis. Specimen Type: ? Nipple Discharge Clinical History: ? Nipple discharge ? Gross Description: ? 2 fixed prepared slide were received and processed. ? End of Report [facility] 02/15/2005 02/15/2005 15: 59 EST Lamont Marroquin MD MSc PATHOLOGY ORDERABLES Performing Organization Address City/State/[facility] Co de Phone Number [facility] [address] [place] [address] documented in this encounter Visit Diagnoses Not on filedocumented in this encounter Care Teams Mobility Developer Relationship Specialty Start Date End Date Unknown, Provider, PCP - General 07/26/08 06/16/12 documented as of this encounter
--- OUTSIDE RECORDS SUMMARY | 2023-11-09 16:24 | XMS_ITS | Encounter Summary ---
Author Organization [facility] Address [address] [place] [address] Care Team Providers Care Extension Course Counselor Name Role Phone Marlon Levine MD Primary Care Provider [phone] Encounter Details Date Type Department Care Team (Late st Contact Info) Description 10/13/2015 Results Only [facility]- [facility] [phone] Mary Alice Ruby MD [address] [place] [address] [place] [address] Social History Tobacco Use Types Packs/Day Years [...] Diagnosis Comments PAP TEST- RESULT ONLY Routine 10/13/2015 0:00 EDT documented in this encounter Results * PAP TEST- RESULT ONLY (10/13/2015 0:00 EDT) Pathology Report: CYTOPATHOLOGY REPORT Reports generated via electronic interface contain original data; however they are lacking the format of the original report. Caution should be taken when reading/interpreti ng unformatted reports. Name: ? BILLIE JENNINGS ? Accession #: ? [id number] ? : ? 1970 (Age: 45) ??F ?Collect Date: ? 10/13/2015 ? Location: ? [facility] ? Receive Date: ? 10/14/2015 ? Provider: MARY ALICE RUBY MD Copy to: MARLON LEVINE MD ? Final Report SPECIMEN ADEQUACY ? Satisfactory for Evaluation - transformation zone component present GENERAL CATEGORIZATION ? Epithelial Cell Abnormality INTERPRETATION ? Squamous Cell Abnormality - Low grade squamous intraepithelial lesion (LSIL). EDUCATIONAL NOTES/RECOMMENDATI ONS ? [facility] recommends following ASCCP's 2012 Updated Consensus Guidelines for the Management of Abnormal Cervical Cancer Screening Tests and Cancer Precursors (JLGTD, 2013; 17(5):S1-S27). ??Consensus guidelines are available online at www.asccp.org. Infection History: Pos for HPV: Last yr Specimen/Source: ??Pap Test, Cervix/Endocervix, ThinPrep Imaging System with manual evaluation Document reviewed and electronically signed by: ? MAXI HASKINS MD ? Report ??Date: 10/27/2015 17:22 HPV with Pap Test ? Date Ordered: ? 10/27/2015 ? Status: ?? Signed Out ?Date Complete: ? 10/30/2015 ? By: ??System Interface ? Date Reported: ? 10/30/2015 ? Interpretation RESULT: Positive for high or intermediate risk HPV. E6 OR E7 mRNA from one or more types of HPV types 16,18,31, 33,35,39,45,51,52, 56,58,59,66, and 68 is detected by bobbin winder tender mediated amplification. High and intermediate risk HPV types are associated with most squamous intraepithelial lesions and cervical cancers. Comments Document reviewed and electronically signed by: ? System Interface ? Report date: 10/30/2015 By the signature above, the attending physician certifies that he/she has personally conducted a gross and/or microscopic examination of the described specimens and rendered or confirmed the above diagnosis. End of Report [facility] 10/13/2015 10/14/2015 Mary Alice Ruby MD PATHOLOGY ORDERABLES [facility] [address] [place] [address] documented in this encounter Visit Diagnoses Not on filedocumented in this encounter Care Teams Extension Course Counselor Relationship Specialty Start Date End Date Marlon Levine MD [address] [place] [id number] PCP - General 06/17/12 documented as of this encounter
--- OUTSIDE RECORDS SUMMARY | 2023-11-09 16:24 | XMS_ITS | Encounter Summary ---
Author Organization [facility] Address [facility] [place] [address] Care Team Providers Care Cnc Programmer Name Role Phone Marlon Levine MD Primary Care Provider [phone] Encounter Details Date Type Department Care Team (Late st Contact Info) Description 06/08/2010 2:30 PM EDT Follow-Up Hematology Oncology at [address] [phone] John Beltran MD [facility] [place] [address] Discharge Disposition: Home Social History Tobacco Use [...] on filedocumented in this encounter Care Teams Cnc Programmer Relationship Specialty Start Date End Date Marlon Levine MD [address] [place] [address] PCP - General 02/16/10 06/19/12 documented as of this encounter
--- OUTSIDE RECORDS SUMMARY | 2023-11-09 16:24 | XMS_ITS | Encounter Summary ---
Author Organization [facility] Address [address] [place] [address] Care Team Providers Care Loss Prevention Lead Name Role Phone Unavailable Primary Care Provider Unavailabl e Encounter Details Date Type Department Care Team (Late st Contact Info) Description 03/02/2005 6:06 EST - 03/02/2005 11:59 EST Hospital Encounter [facility] Perioperative Services- [facility] [address] [place] [address] Deep Rutherford MD [address] [phone] Discharge Disposition: Home or Self Care Social History Tobacco Use Types Packs/Day Years Used Date Smoking Tobacco: Never Assessed Sex and Gender Information Value Date Recorded Sex Assigned at Not on file Gender Identity Not on file Sexual Orientation Not on file documented as of this encounter Discharge Disposition Disposition Code Departure Means Destination Home or Self Care documented in this encounter OR Notes * OR Surgeon - Deep Rutherford MD - 03/02/2005 0000 EST PROCEDURE REPORT PT TYPE: OPPROC PT LOC: [id number] SERVICE DATE: 03/02/2005 SURGEON: Deep Rutherford MD CO FOUNDER AND CTO: Bogdan Hawkins MD PREOPERATIVE DIAGNOSIS: Left breast cancer. POSTOPERATIVE DIAGNOSIS: Left breast cancer. PROCEDURE: Intraoperative ultrasound. Left breast lumpectomy. Left axillary sentinel lymph node biopsy. ANESTHESIA: General. INDICATIONS: This is a 34-year-old female, presenting with a mammogram highly suspicious for breastcarcinoma. Core biopsy was not concordant, however, given the high level of suspicion for a malignancy, the patient will undergo excision. NARRATIVE: The patient was met by the operative team, consent was verified, and she was escorted tothe operating room, where she was positioned supine on the operating room table. Lower extremity compression devices, a warmer, and appropriate padding were placed. Anesthesia monitoring devices wereplaced and the patient was induced under general anesthesia. The patient had already beeninjected with Technetium sulfur colloid in Nuclear Medicine, and the left breast mass was injected with Lymphazurin blue followed by 5 minutes of compression. The surgical area was prepped and draped in standard fashion. Intraoperative ultrasound was usedto localize the tumor and assess the extent of the excision. A curvilinear incision was made on the left breast above the tumor. Dissection was carried down to the subcutaneous tissues and flaps were elevated. The tumor was then fully excised with margins. On inspection of the tumor by palpation and ultrasound, there was some concern about the lateral ma rgin, so additional lateral breast tissue was removed. The surgical site was inspected for hemostasis, which was achieved using electrocautery. Orientation sutures were placed on the specimen. Singleshort superior, double long lateral, and double white anterior. The specimen was sent down for mammography, which revealed the mass and suspicious microcalcifications within the substance of the specimen.The tumor was then sent to pathology, who grossly evaluated the specimen and confirmed the highly suspicious mass and presence of calcifications. The additional lateral margin did not have any calcifications or tumor, and consisted of normal breast tissue. Surgical clips were then placed to jd the tumorectomy site to aid in radiation therapy. The wound was irrigated and then closed using interrupted 3-0 Vicryl and a running 4-0 Monocryl. The lymph node dissection was then approached. New instruments were used for this portion of the procedure. The gamma probe isolated the area of highest activity in the left axillary region. An incision was made over this area and dissection carried down through the subcutaneous tissues into the substance of the axilla. Using identification of blue dye and guidance by the gamma probe, seven sentinel lymph nodes were sequentially identified. These lymph nodes were initially dissected free from the surrounding soft tissues and ties were placed on any obvious feeding lymphatics. One palpable non-sentinel lymph node located superficial in the field was also removed. The residual bed was less than 10% of the hottest node and no further dissection for sentinel nodes was performed. The wound wasirrigated and inspected for hemostasis, which was achieved using electrocautery. The wound was closed in layers with 3-0 Vicryl deep dermals, followed by a 4-0 Monocryl subcuticular stitch. Sterile occlusive dressings were placed over both wounds. The patient had lidocaine and Marcaine injected at both sites prior to the respective incisions. The patient tolerated the procedure well, with no complications. Postop, the patient was awakened and extubated. She was escorted to the recovery room, where she remained in stable condition. ESTIMATED BLOOD LOSS: 150 cc. IV FLUIDS: 1,600 cc. URINE OUTPUT: No Sharma. SPECIMENS: Left breast mass, sentinel lymph nodes x7, non-sentinel lymph node x1. DRAINS: None. COMPLICATIONS: None. DISPOSITION: Recovery room, awake, extubated, and stable. Signed by Deep Rutherford MD 03/07/2005 12:31 Timoteo Foster MD Deep Rutherford MD - Deep Rutherford MD A - RICARDO Job ID: [id number] Document ID: [id number] cc: Deep Rutherford MD Cancer Data Registry cc: Deep Rutherford MD Cancer Data Registry documented in this encounter Plan of Treatment Not on file documented as of this encounter Procedures Procedure Name Priority Date/Time Associated Diagnosis Comments MA BREAST SPECIMEN 03/02/2005 9:58 EST NM INJECTION ONLY SENT NODE 03/02/2005 7:50 EST documented in this encounter Results * MA BREAST SPECIMEN (03/02/2005 9:58 EST) Anatomical Region Laterality Modality Other 03/02/2005 9:58 EST Narrative 10/24/2008 4:16 EDT SPECIMEN XRAY LEFT BREAST LEFT BREAST SPECIMEN RADIOGRAPHY X 2: ??03/02/05 CLINICAL HISTORY: ?? Calcifications in the central medial breast on outside films. This patient had outside films. ??We do not currently have access to the outside films, nor have we ever reviewed them. ??The patient underwent left breast excision and two surgical specimens were obtained. FINDINGS: Magnification digital radiography of two separate surgical specimens was performed, each in two planes. Specimen A: This specimen demonstrates a cluster of pleomorphic calcifications associated with a mass or density. ??The mass measures approximately 12 mm in diameter and is relatively well centered within the specimen. ??The calcifications are at the periphery of the mass and periphery of the specimen close to the specimen edge. Specimen B: No mass or calcifications are identified in the second surgical specimen. IMPRESSION: A mass with malignant-appearing calcifications adjacent to it is included in specimen A, but no additional findings are noted in specimen B. ??Without access to the prior imaging, I cannot determine whether or not all the calcifications in question have been removed. Results were discussed with Dr. Rutherford following the exam. D: ??03/02/05 T: ??03/02/05 Procedure Note Suki Martinez MD - 10/24/2008 SPECIMEN XRAY LEFT BREAST LEFT BREAST SPECIMEN RADIOGRAPHY X 2: 03/02/05 CLINICAL HISTORY: Calcifications in the central medial breast on outside films. This patient had outside films. We do not currently have access to the outside films, nor have we ever reviewed them. The patient underwent left breast excision and two surgical specimens were obtained. FINDINGS: Magnification digital radiography of two separate surgical specimens was performed, each in two planes. Specimen A: This specimen demonstrates a cluster of pleomorphic calcifications associated with a mass or density. The mass measures approximately 12 mm in diameter and is relatively well centered within the specimen. The calcifications are at the periphery of the mass and periphery of the specimen close to the specimen edge. Specimen B: No mass or calcifications are identified in the second surgical specimen. IMPRESSION: A mass with malignant-appearing calcifications adjacent to it is included in specimen A, but no additional findings are noted in specimen B. Without access to the prior imaging, I cannot determine whether or not all the calcifications in question have been removed. Results were discussed with Dr. Rutherford following the exam. Deep Rutherford MD MSc IMG MAMMOGRAPHY ORDE RABCIELO * NM INJECTION ONLY SENT NODE (03/02/2005 7:50 EST) Anatomical Region Laterality Modality Other 03/02/2005 7:50 EST Narrative 10/24/2008 1:45 EDT LEFT SUSPECTED BREAST CANCER LEFT BREAST INJECTION: ??03/02/05 Injection of 1.3 mCi of Tc-99m Sulfur Colloid was made into the left breast preoperatively. ??No films were obtained. D: ??03/02/05 T: ??03/03/05/ Procedure Note Carlos Acosta MD - 10/24/2008 LEFT SUSPECTED BREAST CANCER LEFT BREAST INJECTION: 03/02/05 Injection of 1.3 mCi of Tc-99m Sulfur Colloid was made into the left breast preoperatively. No films were obtained. Deep Rutherford MD MSc IMG NM ORDERABLES documented in this encounter Visit Diagnoses Not on filedocumented in this encounter
--- OUTSIDE RECORDS SUMMARY | 2023-11-09 16:24 | XMS_ITS | Encounter Summary ---
Author Organization [facility] Address [address] [place] [address] Care Team Providers Care Claims Specialist Name Role Phone Unknown, Provider Primary Care Provider [phone] Encounter Details Date Type Department Care Team (Late st Contact Info) Description 03/22/2005 Before PRISM Converted Visit (Maple) [facility] - Maple conversion [address] [place] [address] Deep Rutherford MD MSc [address] [place] [address] Social History Tobacco Use Types Packs/Day Years Used Date Smoking Tobacco: Never Assessed Sex and Gender Information Value Date Recorded Sex Assigned at Not on file Gender Identity Not on file Sexual Orientation Not on file documented as of this encounter Progress Notes * Deep Rutherford MD - 05/28/2009 1223 EST DIVISION OF SURGICAL ONCOLOGY - BREAST [facility] PROGRESS/FOLLOWUP NOTE - 03/22/2005 Reason for visit: Follow-up visit. S: The patient is a 34-year-old female who underwent reexcision of left breast cancer for a positive medial margin and a close posterior margin. The reexcision of margins was performed on 03/10/05. The patient was operated on as an outpatient, did well, and presents today for a follow-up and reviewof her pathology. The patient states that she continues to do well at home with no fevers, respiratory problems, or trouble with her wound. She does state that the left arm is somewhat stiff and hard to raise over herhead or straighten out at the elbow. There are no changes in her past medical history, family history, medications, or allergies. Review of systems: Constitutional: The patient denies any fevers, chills, weight loss, lack of appetite, or lethargy. Respiratory: Denies any cough or breathing difficulties. Cardiac: The patient denies any chest pain or palpitations. GI: The patient denies any nausea, vomiting, dysphagia, constipation, diarrhea, or abdominal pain. Musculoskeletal: The patient states she has some stiffness in theleft arm as describedabove. O: On physical examination the patient is comfortable, in no acute distress. Temp 99, BP 110/80, pulse 88, RR 16. Lungs are clear. Heart is regular. The left breast incision has Steri-strips in place. The wound appears intact with no erythema, induration, or drainage. The left axillary wound appears well-healed with no drainage or swelling. The left upper extremity shows no evidence of lymphedema. The patient is able to elevate the arm and contract at her latissimus to bring the arm backwards. She states that the lack of range of motion for full extension of the arm and full elevation above her head is not at her shoulder, but she feels a tightness in the triceps region. There is no muscle weakness including no latissimus weakness. Pathology Reexcised medial margin with no residual tumor, reexcised posterior margin with no residual tumor, reexcised inferior medial margin no residual tumor. Final HACC sixth edition staging is a pT2, pN0, invasive, ductal carcinoma measuring 2.9 cm in greatest dimension, poorly differentiated, ER/MO negative, with 10% DCIS component, all margins negative, greater than 1 cm. A/P: This is a 34-year-old female status post excision of a pT2N0, invasive, ductal adenocarcinoma with 10% DCIS component. All margins are now negative following reexcision of medial and posterior margins. The wounds are well-healed, and the patient continues to do well with no signs of postoperative complication. Limited mobility in the left arm does not seem to be muscular in nature, i.e., no injury to the nerve innervation for the latissimus or serratus anterior. The patient complains of some stiffness along the triceps region and was instructed to continue doing her exercises to extend her range of motion. As the wounds are healing well, the patient will proceed to radiation oncology according to schedule. The patient will be seen today in multidisciplinary clinic by both medical oncology and radiation oncology. This patient's case was discussed in our multidisciplinary conference and reviewed by all participants. Given the characteristics of the tumor and its ER/MO negative status, chemotherapy was thought to be of greatbenefit. I will see the patient back in my clinic in three months for overall follow-up and reassessment. Atthat time I will also readdress the range of motion of the left arm. Signed by Deep Rutherford MD 03/24/2005 11:51 Tushard Timoteo Ch MD Deep Rutherford MD - Deep Rutherford MD P - KKB Job ID: [id number] Document ID: [id number] cc: Cancer Data Registry Marlon Levine MD cc: Cancer Data Registry Marlon Levine MD documented in this encounter Plan of Treatment Not on file documented as of this encounter Visit Diagnoses Not on filedocumented in this encounter Care Teams Claims Specialist Relationship Specialty Start Date End Date Unknown, Provider, PCP - General 07/26/08 06/16/12 documented as of this encounter
--- OUTSIDE RECORDS SUMMARY | 2023-11-09 16:24 | XMS_ITS | Encounter Summary ---
Author Organization [facility] Address [address] [place] [address] Care Team Providers Care Human Resources Operations Director Name Role Phone Unknown, Provider Primary Care Provider [phone] Encounter Details Date Type Department Care Team (Late st Contact Info) Description 04/25/2006 Results Only [facility] [address] [place] [address] Todd Dominguez, DO [address] [id number] Social History Tobacco Use Types Packs/Day Years Used Date Smoking Tobacco: Never Assessed Sex and Gender Information Value Date Recorded Sex Assigned at Not on file Gender Identity Not on file Sexual Orientation Not on file documented as of this encounter Plan of Treatment Not on file documented as of this encounter Procedures Procedure Name Priority Date/Time Associated Diagnosis Comments SURGICAL PATHOLOGY Routine 04/25/2006 0:00 EST documented in this encounter Results * SURGICAL PATHOLOGY (04/25/2006 0:00 EST) Pathology Report: SURGICAL PATHOLOGY REPORT Reports generated via electronic interface contain original data; however they are lacking the format of the original report. Caution should be taken when reading/interpreti ng unformatted reports. Name: ? BILLIE LANCE ? Accession #: ? [id number] ? : ? 1970 (Age: 35) ??F ? Collect Date: ? 04/25/2006 ? Location: ? [facility] ? Receive Date: ? 04/26/2006 ? Provider: TODD DOMINGUEZ DO Copy to: MORRIS CARTAGENA MD ? Final Pathologic Diagnosis: ? Breast, right, upper inner quadrant, excisional biopsy: 1. ?Fibrocystic changes including: ? - Nodular fibrosis. - Interlobular fibrosis. - Microcyst formation. Document reviewed and electronically signed by: ESE NICE MD Report ??Date: 04/28/2006 14:54 By the signature above, the attending physician certifies that he/she has personally conducted a gross and/or microscopic examination of the described specimens and rendered or confirmed the above diagnosis. Specimen(s) Received: ? Right breast mass, upper inner quadrant, short suture superior, long suture lateral Clinical History: ? Right breast mass UIQ, H/O left breast CA Gross Description: ? Received in formalin labelled Lance and right breast mass upper inner quadrant, short suture superior, long suture lateral, is a 7.5 gram oriented portion of breast tissue. ??The specimen is oriented as per the surgical pathology requisition and measures 4.0 cm from medial to lateral, 2.5 cm from superior to inferior, and 1.5 cm from anterior to posterior. ??The specimen is inked as follows: ??medial and lateral are black, posterior is blue, anterior is red, superior is yellow, and inferior is green. The specimen is serially sectioned from medial to lateral into nine levels with level 1 being the medial aspect and level 9 being the lateral aspect. Sectioning reveals a well-circumscribed white, rubbery, ovoid mass in levels 3-9. ??The mass measures 2.0 x 1.7 x 1.0 cm and abuts the anterior, posterior and inferior margins. ??The remaining cut surface is composed of yellow, lobulated adipose tissue, which comprises approximately 60% of the specimen. ??The specimen is submitted entirely as follows: BLOCK FLORIAN A1 ?Level 1, medial margin, perpendicular sections A2 ?Level 2 A3 ?Level 3 A4 ?Level 4 A5 ?Level 5 A6 ?Level 6 A7 ?Level 7 A8 ?Level 8 A9, A10 ?Level 9, lateral margin, perpendicular sections ? (Dr. Hinojosa-)/mpl End of Report YEISON MARINELLI 04/25/2006 04/26/2006 8:3 2 EST Todd Dominguez DO PATHOLOGY ORDER KARMA LATHAMKIA TO [facility] [address] [place] [address] documented in this encounter Visit Diagnoses Not on filedocumented in this encounter Care Teams Human Resources Operations Director Relationship Specialty Start Date End Date Unknown, Provider, PCP - General 07/26/08 06/16/12 documented as of this encounter
--- OUTSIDE RECORDS SUMMARY | 2023-11-09 16:24 | XMS_ITS | Encounter Summary ---
Author Organization [facility] [place] [address] [place] [address] Care Team Providers Care Watch Crystal Molder Name Role Phone Marlon Levine MD Primary Care Provider + [phone] Encounter Details Date Type Department Care Team (Late st Contact Info) Description 01/23/2008 Orders [place] [address] Margarita Joe MD [facility] [address] GENERAL SURGERY [place] [id number] Social History Tobacco Use Types Packs/Day Years [...] Associated Diagnosis Comments SURGICAL PATHOLOGY REPORT Routine 01/23/2008 5:21 PM EDT documented in this encounter Results * Surgical Pathology Report (01/23/2008 5:21 PM EDT) Surgical Pathology Report [id number] ? Location: [facility] The signing pathologist has (i) examined the relevant preparation(s) for the specimen(s) and (ii) rendered or confirmed the diagnosis(es). . ? Pathology Molecular Genetics Report Results TEST: ??HER2 FISH, BREAST CANCER METHOD: ??Fluorescence in situ hybridization (FISH) with probe for chromosome 17 centromere (17p11.1-q11.1) and locus specific probe for the HER2 gene locus (17q11.2-q12). SAMPLE ANALYZED: A4-06 RESULT: ?NEGATIVE FOR HER2/CYNTHIA AMPLIFICATION ? TOTAL # SIGNALS/TOTAL # NUCLEI COUNTED FOR HER2 PROBE = 80 ? TOTAL # SIGNALS/TOTAL # NUCLEI COUNTED FOR CEP-17 PROBE = 81 ? HER2 TO CEP-17 RATIO = 0.98 ? (NORMAL RANGE <1.8) Interpretation: ??Paraffin-embedded tissue sections were submitted for HER2 gene amplification analysis by FISH. ??Direct analysis was performed using the OneCubicle Kit. ??Slide adequacy and signal enumeration were evaluated and satisfactory for both control and patient slides. ??The results of this analysis is based on the enumeration of 40 interphase nuclei from non-overlapping tumor cells. ??A signal ratio derived from the HER2 probe and the CEP-17 centromere probe of >2.2 is considered positive for HER2 gene amplification. 2008 CAP guidelines state that samples with a HER2 to CEP-17 ratio of less than 1.8 are normal. Specimen with a HER2 to CEP-17 range of 1.8 to 2.2 are considered equivocal. Specimen with a HER2 to CEP-17 ratio of greater than 2.2 are considered amplified. This test is approved by the U.S.FDA for clinical diagnostic use. John Jolley, PH.D. Director, Molecular Pathology _ Verified date: ??01/31/08 ??HAB Verified by: ?Black DO, yKlie Mckenzie ?(Electronic Signature) ?Pathology Surgical Pathology Final Report Clinical Information Specimen Submitted: A - Right breast tissue; Right breast Clinical History: Not provided Clinical Diagnosis: Abnormal right mammo Gross Description Labeled/Fixative: ? Right breast tissue, right breast, fresh. Qty/Size/Weight: ?Single, 4.7 x 3.9 x 0.8 cm, 12 g. Radiograph: ? Received, showing wire localization needle in the . Gross Description ?center of a hypodense area. Tissue Description: ?? According to the established protocol, the ink ?designations are red (medial), yellow (lateral), ?orange (cranial), green (caudal), black (deep), and ?blue (superficial). Tissue Sections: ?The specimen is serially sectioned perpendicular to ?the long axis from black to blue into nine slices, ?each averaging 0.52 cm in thickness. Lesion: ? Present. ? Size: ?1.5 x 0.9 x 2.0 cm. ? Color: ? White-tomas. ? Consistency: ? Firm. ? Location: ?Slices IV-VII. ? Nearest margin: ?0.2 cm to orange margin. ? Other margins: ? 0.4 cm to green margin, greater than 1.0 cm to ?all other margins. Parenchyma: ? Remaining parenchyma is yellow-tomas and fibrofatty. Wire/Clip: ?Wire tip is located in slice V. ??No clip is ?identified. Other: ?There is a possible biopsy site in slice IV with an ?area of focal hemorrhage. Sections/Processing: ??(A1) slices I-II; (A2) slice III; (A3) slice IV; ?(A4-A5) slice V; (A6-A7) slice ; (A8-A9) slice VII; (A10) slice VIII; (A11) slice IX. ??(T11) ??jlk/LCS Microscopic Description Slides reviewed, microscopic description not recorded. Immunohistochemistry Studies: Formalin-fixed, paraffin-embedded tissue sections are studied using the [employer] system technique with appropriate positive and negative controls. Block ? Antibody ?Result (Positive/Negative) A4 ? e-cadherin ? Positive in tumor. These immunohistochemical studies provide ancillary information and are used only in conjunction with standard diagnostic procedures. Diagnosis Specimen (s): ? 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 Tubular Differentiation: ? 3 ?? Mitotic Rate: ?2 ?? Nuclear Grade: ? 3 Tumor Size: ? 1.5 cm (maximum diameter) In Situ Histologic Type: ?DCIS ?? Extensive/Minor Component: ?? Minor ?? Grade: ? High ?? Necrosis: ?Present (Present / Absent) ?? Pattern(s): ?Solid with extensive lobular extension Microcalcifications: ?N/A Resection Margins (RM): ?? Invasive Ca (distance, RM): ??0.12 cm to orange/cranial RM (A3) ?? DCIS (distance, RM): ? 0.10 cm to orange/cranial RM (A4) ?0.21 cm to green/caudal RM (A4) Angiolymphatic Invasion: ?Not identified Perineural Invasion: ?Not identified Nipple Involvement: ? NA Correlation Biopsies/Cytology ?? Needle bx [id number], 08/07/07. . Diagnosis ?2006-left breast excision S--617. Other findings: ? NA Estrogen/Progestin receptors: ?? Performed on block A4 ?? ER immunoreactivity: ? Negative (see Diagnostic del toro*) ?? IL immunoreactivity: ? Negative (see Diagnostic del toro*) HER2/cynthia expression by FISH: ?See separate report pTNM: pT1c NXMX (AJCC, 6th edition, 2003) ? - - - - - - - - - - - - - - - - - - - - - - - - - - - - - *Diagnostic del toro for hormone receptors: ?? Negative immunoreactivity: ??No immunostaining ?? Equivocal immunoreactivity: 1-15% tumor cells with immunostaining ?? Positive immunoreactivity: ??>15% tumor cells with immunostaining 01/25/08 [facility] 01/28/08 Verified by: ? Black DO, Kylie C. ?Pathologist ?(Electronic Signature) The attending pathologist whose signature appears on this report has reviewed all diagnostic slides and has edited the gross and/or microscopic portion of the report in rendering the final pathologic diagnosis. MENDEL AVERY 01/23/2008 5:21 PM EDT Margarita Joe MD PATHOLOGY/CYTOLOGY ORDERABLES Performing Organization Address City/State/[facility] Co de Phone Number [facility] documented in this encounter Visit Diagnoses Not on filedocumented in this encounter Care Teams Watch Crystal Molder Relationship Specialty Start Date End Date Marlon Levine MD [address] [place] [address] PCP - General 06/20/12 documented as of this encounter
--- OUTSIDE RECORDS SUMMARY | 2023-11-09 16:24 | XMS_ITS | Encounter Summary ---
Author Organization [facility] Address [address] [place] [address] Care Team Providers Care Armed Custom Protection Officer Name Role Phone Marlon Levine MD Primary Care Provider [phone] Encounter Details Date Type Department Care Team (Late st Contact Info) Description 01/19/2018 Results Only [facility] [[email or web address] [phone] Anat Hawthorne, CONSTRUCTION SUPERINTENDENT [address] [facility] [address] [place] [address] Social History Tobacco Use Types Packs/Day Years [...] Diagnosis Comments PAP TEST- RESULT ONLY Routine 01/19/2018 0:00 EDT documented in this encounter Results * PAP TEST- RESULT ONLY (01/19/2018 0:00 EDT) Pathology Report: CYTOPATHOLOGY REPORT Reports generated via electronic interface contain original data; however they are lacking the format of the original report. Caution should be taken when reading/interpret ing unformatted reports. Name: ? BILLIE JENNINGS ? Accession #: ? [id number] ? : ? 1970 (Age: 47) ??F ?Collect Date: ? 01/19/2018 ? Location: ? [facility] ? Receive Date: ? 01/23/2018 ? Provider: ANAT HAWTHORNE CONSTRUCTION SUPERINTENDENT Copy to: ? Final Report SPECIMEN ADEQUACY ? Satisfactory for Evaluation - transformation zone component present GENERAL CATEGORIZATION ? Epithelial Cell Abnormality INTERPRETATION ? Squamous Cell Abnormality - Atypical squamous cells, undetermined significance (ASC-US). EDUCATIONAL NOTES/RECOMMENDAT IONS ? [facility] recommends following ASCCP's 2012 Updated Consensus Guidelines for the Management of Abnormal Cervical Cancer Screening Tests and Cancer Precursors (JLGTD, 2013; 17(5):S1-S27). ??Consensus guidelines are available online at www.asccp.org. Previous Gynecologic Pathology: HSIL: [id number] DANTE II-III: 2016 Other: Additional clinical information: Breast cancer Specimen/Source: ??Pap Test, Cervix/Endocervix , ThinPrep Imaging System with manual evaluation Document reviewed and electronically signed by: ? MAXI HASKINS MD ? Report ??Date: 01/31/2018 12:52 HPV with Pap Test ? Date Ordered: ? 01/31/2018 ? Status: ?? Signed Out ?Date Complete: ? 02/02/2018 ? By: ??System Interface ? Date Reported: ? 02/02/2018 ? Interpretation RESULT: Negative for HPV. No E6 or E7 mRNA is detected from HPV types 16,18,31,33,35, 39,45,51,52,56,58 ,59,66, and 68 by certified medical transcriptionist mediated amplification. Comments Document reviewed and electronically signed by: ? System Interface ? Report date: 02/02/2018 By the signature above, the attending physician certifies that he/she has personally conducted a gross and/or microscopic examination of the described specimens and rendered or confirmed the above diagnosis. End of Report [facility] 01/19/2018 01/23/2018 Anat Hawthorne APRN PATHOLOGY ORDERAB LES [facility] [address] [place] [address] documented in this encounter Visit Diagnoses Not on filedocumented in this encounter Care Teams Armed Custom Protection Officer Relationship Specialty Start Date End Date Marlon Levine MD [address] [place] [address] PCP - General 06/17/12 documented as of this encounter
--- OUTSIDE RECORDS SUMMARY | 2023-11-09 16:24 | XMS_ITS | Encounter Summary ---
Author Organization [facility] [place] [place] [address] Care Team Providers Care Sourcing Associate Name Role Phone Marlon Levine MD Primary Care Provider + [phone] Encounter Details Date Type Department Care Team (Late st Contact Info) Description 06/28/2006 Orders Only [facility] [place] [id number] Angel Rosales MD OBSTETRICS & GYNECOLOGY Social History Tobacco Use Types Packs/Day Years [...] Associated Diagnosis Comments SURGICAL PATHOLOGY REPORT Routine 06/28/2006 11:47 AM EDT documented in this encounter Results * Surgical Pathology Report (06/28/2006 11:47 AM EDT) Surgical Pathology Report [id number] ? Location: The signing pathologist has (i) examined the relevant preparation(s) for the specimen(s) and (ii) rendered or confirmed the diagnosis(es). . ?Pathology Surgical Pathology Final Report Clinical Information Specimen Submitted: A - Fallopian tube with band. right. Clinical History: Desires tubal reversal. Gross Description Labeled/Fixative: ? Fallopian tube with band, right; fresh. Qty/Size/Weight: ?Two, 0.6 cm and 0.8 cm. Tissue Description: ?? Irregular portions of rubbery, tomas-yellow and ?tomas-pink tissue. ??Within the larger portion of tissue is a hard, mistry-white foreign material. ??The smaller portion of tissue is bisected and entirely submitted. ??A technical service representative section of the larger portion of tissue is submitted. Sections/Processi ng: ??(R1) ??aje/EJR Microscopic Description Slides reviewed, microscopic description not recorded. Diagnosis Right fallopian tube segment with band and focal tubo-glandular ?proliferation (see Comment). CR-0 06/29/06 ARS 06/29/06 Verified by: ? Tesfaye Jacobs MD ?Pathologist ?(Electronic Signature) The attending pathologist whose signature appears on this report has reviewed all diagnostic slides and has edited the gross and/or microscopic portion of the report in rendering the final pathologic diagnosis. Comment In one of the cross-sections of the tube, a few small, ciliated, benign tubular structures are present within the smooth muscle of the tubal wall. ??These resemble the tubular proliferations found in salpingitis isthmica nodosum and most likely represent a localized regenerative phenomenon secondary to the tubal ligation. ??(A similar appearance is sometimes found in the vas deferens secondary to vasectomy, called vasitis nodosa). MENDEL AVERY 06/28/2006 11:4 7 AM EDT Angel Rosales MD PATHOLOGY/CYTOLOGY O RDERABLES MENDEL AVERY documented in this encounter Visit Diagnoses Not on filedocumented in this encounter Care Teams Sourcing Associate Relationship Specialty Start Date End Date Marlon Levine MD [address] [place] [address] PCP - General 06/20/12 documented as of this encounter
--- OUTSIDE RECORDS SUMMARY | 2023-11-09 16:24 | XMS_ITS | Encounter Summary ---
Author Organization [facility] [place] [place] [address] Care Team Providers Care Stove Installer Name Role Phone Marlon Levine MD Primary Care Provider + [phone] Encounter Details Date Type Department Care Team (Late st Contact Info) Description 04/21/2010 9:30 AM EST Follow-Up Neurology at [facility] [place] [address] [facility] [place] [address] Social History Tobacco Use Types Packs/Day Years Used Date Smoking Tobacco: Never Assessed Sex and Gender Information Value Date Recorded Sex Assigned at Not on file Gender Identity Not on file Sexual Orientation Not on file documented as of this encounter Plan of Treatment Not on file documented as of this encounter Visit Diagnoses Not on filedocumented in this encounter Care Teams Stove Installer Relationship Specialty Start Date End Date Marlon Levine MD [address] [place] [address] PCP - General 02/16/10 06/19/12 documented as of this encounter
--- OUTSIDE RECORDS SUMMARY | 2023-11-09 16:24 | XMS_ITS | Encounter Summary ---
Author Organization [facility] Address [facility] [place] [address] Care Team Providers Care Summer Law Associate Name Role Phone Marlon Levine MD Primary Care Provider + [phone] Encounter Details Date Type Department Care Team (Late st Contact Info) Description 10/30/2008 Orders [place] [address] Margarita Joe MD [facility] [place] [address] Social History Tobacco Use Types Packs/Day Years [...] Associated Diagnosis Comments SURGICAL PATHOLOGY REPORT Routine 10/30/2008 10:50 AM EDT documented in this encounter Results * Surgical Pathology Report (10/30/2008 10:50 AM EDT) Surgical Pathology Report [id number]- [id number] ? Location: [facility]; 0301; A The signing pathologist has (i) examined the relevant preparation(s) for the specimen(s) and (ii) rendered or confirmed the diagnosis(es). . ?Pathology Surgical Pathology Final Report Clinical Information Specimen Submitted: A - Short marker superior long marker laterasrt, rt breast B - Left mastectomy, left breast Clinical History: Hx of breast cancer Clinical Diagnosis: Breast cancer Gross Description A - Labeled/Fixative: Short marker superior, long marker lateral, right ?breast; fresh. Qty/Size/Weight: ?One, 17.0 x 14.0 x 2.5 cm, 433 g. Tissue Description: ?? Right simple skin-sparing mastectomy. ?? Skin: ?4.0 x 2.5 cm. ?? Nipple: ?1.2 cm in diameter. ??Everted. ?? Deep Margin: ? Not involved grossly. ??Deep margin inked black. ?Superior margin inked blue. ?? Clip: ?The original biopsy clip is not identified. ??It was ?noted to have migrated at the patient's excision in ?December 2007. ?? Lesion: ?No gross lesions or prior definitive excision ?cavities are identified. ??Tissue in the upper outer quadrant consists of dense, rubbery, white-mistry fibrous tissue. ??Sectioning is focused at the upper outer quadrant in the area of the patient's previous lesion. ?? Parenchyma: ?The remaining parenchyma is rubbery, white fibrous ?tissue admixed with fatty tissue. Sections/Processing : ??The breast is serially sectioned from lateral to ?medial into nine slices. ??(1) nipple disc; (2) nipple, bisected; (3-4) fibrous tissue from slice III at superficial margin; (5) fibrous tissue from slice III at deep margin; (6) fibrous tissue from slice IV at superficial margin; (7) fibrous tissue from slice IV; (8) fibrous tissue from slice IV at deep margin; (9-10) fibrous tissue from slice V at superficial margin; (11) fibrous tissue from slice V at deep margin; (12) fibrous tissue from slice at superficial margin; (13) fibrous tissue from slice at deep margin; (14) charter representative fibrous tissue from outer lower quadrant; (15) charter representative fibrous tissue from lower inner quadrant; (16) charter representative fibrous tissue from upper inner quadrant. ??(R16) B - Labeled/Fixative: Left mastectomy, left breast; fresh. Qty/Size/Weight: ?One, 16.0 x 14.5 x 3.0 cm, 370 g. Tissue Description: ?? Left simple skin-sparing mastectomy. ?? Skin: ?There is a tomas ellipse of skin, 7.5 x 4.0 cm. ?? Nipple: ?1.2 cm in diameter and is everted. ?? Deep Margin: ? Inked black. ??Grossly uninvolved. ??Superficial margin ?is inked blue. ?? Lesion: ?There is a prior lumpectomy cavity identified. ?Size: ? 4.0 x 1.5 x 1.5 cm. ?Color: ?The capsule consists of pink-tomas tissue. ??There is ?dense, rubbery, white-mistry tissue surrounding the ?cavity. ?Consistency: ?Rubbery. . Gross Description ?Borders: ?Well circumscribed, encapsulated cavity. ?Location: ? The cavity is found at the 11 o'clock position, ?2.0 cm from the nipple. ??It is 1.5 cm to the ?superficial margin and is adjacent to the deep ?margin. ?? Parenchyma: ?The remaining parenchyma consists of white-mistry, ?dense fibrous tissue with admixed adipose tissue. Sections/Processing : ??(1) nipple disc; (2) nipple, bisected; (3) cavity at ?deep margin; (4) cavity to superior margin; (5) fibrous tissue around cavity; (6) lower outer quadrant; (7) upper outer quadrant; (8) upper inner quadrant; (9) lower inner quadrant. ?? (R9) ??[facility] Microscopic Description Slides reviewed, microscopic description not recorded. Diagnosis Specimen: ? A - Breast, right, skin-sparing mastectomy Specimen Size: ?17.0 x 14.0 x 2.5 cm Residual malignancy: ?Absent Prior Bx's correlation: [id number], partial mastectomy ?[id number], axillary lymph nodes Other findings: ? Fibrocystic disease with adenosis, usual epithelial ?hyperplasia and fibrosis. Specimen: ? B - Breast, left, skin-sparing mastectomy Specimen Size: ?16.0 x 14.5 x 3.0 cm Residual malignancy: ?Absent Prior Bx's correlation: [id number] Other findings: ? Scar ?Fibrocystic disease with adenosis, usual epithelial ?hyperplasia, fibrosis and fibroadenomatous change. CR-0 11/03/08 VAM 11/03/08 Verified by: ? Vielka CROSS, Tobias Roldan ?Pathologist ?(Electronic Signature) The attending pathologist whose signature appears on this report has reviewed all diagnostic slides and has edited the gross and/or microscopic portion of the report in rendering the final pathologic diagnosis. MENDEL AVERY 10/30/2008 10:5 0 AM EDT Margarita Joe MD PATHOLOGY/CYTOLOGY ORDERABLES MENDEL AVERY documented in this encounter Visit Diagnoses Not on filedocumented in this encounter Care Teams Summer Law Associate Relationship Specialty Start Date End Date Marlon Levine MD [address] [place] [address] PCP - General 06/20/12 documented as of this encounter
--- OUTSIDE RECORDS SUMMARY | 2023-11-09 16:24 | XMS_ITS | Encounter Summary ---
[place] [address] Care Team Providers Care Racket Stringer Name Role Phone Unavailable Primary Care Provider Unavailabl e Encounter Details Date Type Department Care Team (Late st Contact Info) Description 01/11/2010 9:00 AM EDT - 01/11/2010 11:59 PM EDT Hospital Encounter ZUNSCHEDULED Deandre Lynn MD Discharge Disposition: Home Social History Tobacco Use [...]
--- OUTSIDE RECORDS SUMMARY | 2023-11-09 16:24 | XMS_ITS | Encounter Summary ---
Author Organization [facility] Address [address] [place] [address] Care Team Providers Care Therapeutic Dietitian Name Role Phone Marlon Levine MD Primary Care Provider Encounter Details Date Type Department Care Team (Latest Contact Info) Description 11/16/2015 8:55 EDT - 11/16/2015 23:59 EDT Hospital Encounter [address] [address] Unknown, Provider, Discharge Disposition: Home or Self Care Social [...] Code Departure Means Destination Home or Self [facility] documented in this encounter Plan of Treatment Not on file documented as of this encounter Visit Diagnoses Not on filedocumented in this encounter Care Teams Therapeutic Dietitian Relationship Specialty Start Date End Date Marlon Levine MD [address] [place] [address] PCP - General 06/17/12 documented as of this encounter
--- OUTSIDE RECORDS SUMMARY | 2023-11-09 16:24 | XMS_ITS | Encounter Summary ---
Author Organization [facility] [place] [address] Care Team Providers Care Host/Hostess Name Role Phone Marlon Levine MD Primary Care Provider + [phone] Reason for Visit * Reason Comments Follow-up Encounter Details Date Type Department Care Team (Late st Contact Info) Description 04/15/2011 11:00 AM EST Follow-[place] [address] Ana Lilia Soria [facility] [place] [address] Breast cancer (Primary Dx) Discharge Disposition: Home Social History Tobacco Use Types Packs/Day Years Used Date Smoking Tobacco: Never Sex and Gender Information Value Date Recorded Sex Assigned at Not on file Gender Identity Not on file Sexual Orientation Not on file documented as of this encounter Progress Notes * Ana Lilia Soria, MUSHTAQ - 04/15/2011 11:21 AM EST Antonia is a 40-year-old pt of Dr Joe who presents today for annual surgical follow up. She was initially diagnosed with a left breast cancer in 2004. She was treated with a lumpectomy and axillary lymph node dissection. 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 Resection margins were negative. Ten lymph nodes were negative. Thetumor was ER/SC-negative and HER2-negative. Antonia went on to adjuvant chemotherapy under the guidance of Dr. John Beltran. She was treated with four cycles of dose- dense AC followed by two cycles of Taxol. She developed extreme peripheral neuropathy and therefore completed Taxol early in July 2005. She was then treated with adjuvant whole-breast irradiation therapy. Antonia had done well since her initial left sided operation. She has been followed with screening mammograms and MRI. Her MRI in July 2007 revealed a new lesion in the upper outer right (contralateral)breast. This underwent MRI-guided biopsy, which revealed fibrocystic change. Followup MRI was obtained in December 2007, which showed a persistent lesion. 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 2005-left breast excision [id number]. Other findings: NA Estrogen/Progestin receptors: Performed on block A4 ER immunoreactivity: Negative (see Diagnostic [place] [facility]*) SC immunoreactivity: Negative (see Diagnostic del tor[place]*) HER2 negative [place] node excision was without evidence of metastatic disease. She underwent chemotherapy and then returned to the OR for b/l mastectomy with immediate reconstruction with ALT flaps. She has no concerns about her breast exam. She has no lymphedema. She is feeling quite well and striving to loseweight she gained w/ chemo. No headaches, fevers, sob, cough, abd pain, musculoskeletal pains. Physical Examination: On exam, Antonia is well appearing and in no apparent distress. She is anicteric and nontoxic. There is no cervical, supraclavicular or axillary adenopathy bilaterally. Abdomen issoft, nontender, nondistended without masses. Extremities without lymphedema. Bilateral breasts with well healed mastectomy flaps. No palpable masses bilaterally. 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 Beltran. documented in this encounter Plan of Treatment Not on file documented as of this encounter Visit Diagnoses Diagnosis Breast cancer- Primary Malignant neoplasm of breast (female), unspecified site documented in this encounter Care Teams Host/Hostess Relationship Specialty Start Date End Date Marlon Levine MD [address] [place] [id number] PCP - General 02/16/10 06/19/12 documented as of this encounter
--- OUTSIDE RECORDS SUMMARY | 2023-11-09 16:24 | XMS_ITS | Encounter Summary ---
Author Organization [facility] Address [address] [place] [address] Care Team Providers Care Digital Marketing Specialist Name Role Phone Unknown, Provider Primary Care Provider [phone] Encounter Details Date Type Department Care Team (Late st Contact Info) Description 03/02/2005 Results Only [facility] Surgical Oncology - [facility] [address] [place] [address] Lamont Marroquin MD MSc [address] [place] [phone] Social History Tobacco Use Types Packs/Day Years Used Date Smoking Tobacco: Never Assessed Sex and Gender Information Value Date Recorded Sex Assigned at Not on file Gender Identity Not on file Sexual Orientation Not on file documented as of this encounter Plan of Treatment Not on file documented as of this encounter Procedures Procedure Name Priority Date/Time Associated Diagnosis Comments SURGICAL PATHOLOGY Routine 03/02/2005 0:00 EST documented in this encounter Results * SURGICAL PATHOLOGY (03/02/2005 0:00 EST) Pathology Report: SURGICAL PATHOLOGY REPORT Reports generated via electronic interface contain original data; however they are lacking the format of the original report. Caution should be taken when reading/interpreting unformatted reports. Name: ? BILLIE LANCE ? Accession #: ? [id number] ? : ? 1970 (Age: 34) ??F ? Collect Date: ? 03/02/2005 ? Location: ? [facility] ? Receive Date: ? 03/02/2005 ? Provider: LAMONT MARROQUIN MD Copy to: ? Final Pathologic Diagnosis: ? SYNOPTIC DIAGNOSIS FOR MALIGNANT BREAST TUMORS Laterality: ?Left ? AJCC (6th edition): pT2, pN0(sn) ?? Specimen: ?Excisional biopsy, re-excision, sentinel node biopsy Tumor Type: ?Invasive ductal Tumor Size: ?2.9 x 2.0 x 2.8 cm [place] Combined Histologic Scores: ? Tubules: ?3 ? Nuclei: ?3 ? Mitotic Rate: ? 2 (actual count 12/10 HPF with field diameter of 0.54 mm) ? Total: ?8 Differentiation: ? Poor Margins: ?Positive (medial) DCIS: ? Solid, focal necrosis with microcalcification, nuclear grade III % DCIS: ?10% DCIS margins: ?Negative (closest margin 1.00 mm to lateral) LVI: ? Not identified Lymph nodes: ?0/10 (positive/total count) ER/ HI: ?See separate report C-erb-B2: ? See separate report ? Final Pathologic Diagnosis: ? A. ?Breast, left, excisional biopsy: 1. ?Adenocarcinoma, invasive, ductal type, poorly-differentiated. ??See comment. ? - Tumor measures 2.9 cm in greatest dimension (AJCC:pT2). - Surgical resection margins positive; tumor present: ? - At medial margin (A23). ?- 0.25 mm from posterior margin (A23). ?- 2.0 mm from lateral margin (A20). ?- 6.0 mm from anterior margin (A25). ?- Invasive tumor greater than 1.0 cm from remaining margins. ? - ??Lymphovascular invasion is not identified. 2. ?Ductal carcinoma in situ (DCIS), solid pattern, with necrosis, high (III) nuclear grade. ? - DCIS constitutes 5% of total tumor mass. - Surgical resection margins negative; DCIS present: ? - 1.0 mm from lateral margin (A20). ?- 1.8 mm from posterior margin (A20). ?- 8.0 mm from medial margin (A19). ?- DCIS greater than 1.0 cm from remaining margins. 3. ?Fibrocystic changes including: ? - Sclerosing adenosis and interlobular fibrosis. 4. ?Microcalcifications associated with ductal carcinoma in situ. B. ?Breast, left, re-excision of lateral margin: 1. ?No residual carcinoma identified. 2. ?Fibrocystic changes including: ? - Sclerosing adenosis, apocrine metaplasia, dense interlobular fibrosis. C. ?Lymph node, left sentinel #1, ex-vivo count 1267, excision: 1. ?One lymph node negative for malignancy (0/1)(AJCC:pN0(sn)). D. ?Lymph node, non-sentinel #1, excision: 1. ?One lymph node negative for malignancy (0/1). E. ?Lymph node, sentinel node #2, ex-vivo count 2658, excision: 1. ?One lymph node negative for malignancy (0/1). F. ?Lymph node, sentinel node #3, ex-vivo count 363, excision: 1. ?Two lymph nodes negative for malignancy (0/2). G. ?Lymph node, sentinel node #4, ex-vivo count 364, excision: 1. ?One lymph node negative for malignancy (0/1). H. ?Lymph node, sentinel node #5, ex-vivo count 485, excision: 1. ?One lymph node negative for malignancy (0/1). I. ?Lymph node, left axillary sentinel node, ex-vivo count 82, excision: 1. ?One lymph node negative for malignancy (0/1). J. ?Lymph node, left axillary sentinel node, ex-vivo count 81, excision: 1. ?Two lymph nodes negative for malignancy (0/2). Comment: ? The tumor involves 7 out of 14 levels submitted for microscopic examination. ??Estrogen and progesterone receptor studies have been ordered and will be reported separately in an addendum. ??(Dr. Abimael Stevenson)/[facility] Document reviewed and electronically signed by: [facility] Report ??Date: 03/07/2005 16:53 By the signature above, the attending physician certifies that he/she has personally conducted a gross and/or microscopic examination of the described specimens and rendered or confirmed the above diagnosis. Specimen(s) Received: A. ?Left breast mass (#1) B. ?Additional margin left breast, suture dbl long-lat, single short-superior, [id number]; 3 clips-anterior, single clip-superior, 2 clips-lateral C. ?[place] node, left #1 Ct 1267 D. ?Non-sentinel node #1 E. ?? [place] node #2, Ct 2658 F. ?[place] node #3, Ct 363 G. ?[place] node #4, Ct 364 H. ?#5 sentinel node, left, Ct 485 I. ?[place] node left XVIVO 82 J. ?XVIVO 81 K. ?Left axillary sentinel node XVIVO Clinical History: ? Left breast cancer Intraoperative Interpretation: 1. ?Left breast mass (gross consult): ??2.4 cm maximal dimension mass with calcification at lateral margin ??Dr. Delilah Dean; 03/02/05 at 10:42 AM 2. ?Additional margin left breast (gross consult): Breast tissue with fibrosis. ??No distinct mass or calcifications (per surgeon, specimen contiguous with lateral margin of left breast mass specimen). Discussed with Dr. Patricia Dean; 03/02/05 at 10:42 AM 3. ?[place] node, left, #1, CT 1267 (SP1): 1 lymph node negative for malignancy (0/1) ??Dr. Delilah Dean; ? 03/02/05 at 12:20 4. ?Non-sentinel node (gross consult): ??1 lymph node macroscopically negative for malignancy ??Dr. Mazariegos ? Dianne; 03/02/05 at 12:20 5. ?[place] node #2 CT 2658 (SP2): ??1 lymph node negative for malignancy (0/1) ??Dr. Delilah Dean; 03/02/05 6. ?[place] node #3 CT 363 (gross consult): ??2 lymph nodes macroscopically negative for malignancy ??DrWendy ?Delilah Dean; 03/02/05 at 12:20 7. ?[place] node #4 CT 364 (gross consult): ??1 lymph node macroscopically negative for malignancy ??Dr. Delilah Dean; 03/02/05 at 12:20 8. ?#5 sentinel node, left CT 485 (SP3): ??1 lymph node negative for malignancy (0/1) ??Dr. Delilah Dean; 03/02/05 at 12:20 9. ?[place] node left ex-vivo 82 (gross consult): ??1 lymph node macroscopically negative for malignancy ??Dr. Delilah Dean; 03/02/05 at 12:40 ? 10. [place] node left ex-vivo 81 (gross consult): ?? 2 lymph nodes macroscopically negative for malignancy ?- Dr. Delilah Dean; 03/02/05 at 12:40 Gross Description: ? Received fresh and accompanied by two radiographs labelled Lance and A-lumpectomy left breast is a 48.6 gram lumpectomy specimen that is oriented according to the accompanying requisition which states that a long double black suture indicates the lateral aspect, a short single black suture designates the superior aspect and a double white suture designates the anterior aspect. ??The specimen is also marked with clips and three clips designate the anterior aspect, a single clip designates the superior aspect and two clips designate the lateral aspect also according to the accompanying requisition. ??The specimen measures 8.7 cm from superior to inferior by 4.6 cm from medial to lateral and 3.6 cm from anterior to posterior. ??The specimen is inked as follows: anterior blue, posterior black, superior and inferior red, lateral yellow, & medial orange. Serial sectioning reveals a 2.9 x 2.0 x 1.8 cm well-defined, firm white mass that is previously dyed blue. ??The mass interdigitates with the surrounding yellow, lobular adipose tissue in a stellate pattern. ??The mass abuts the lateral margin and comes to within 0.2 cm of the anterior margin, 0.7 cm to the medial margin, 0.3 cm to the posterior margin, and it measures greater than 1.0 cm from all remaining margins. ??The remaining breast parenchyma is composed of homogeneous yellow, lobular adipose tissue. ??An intraoperative consult (gross only) is performed with the interpretation rendered as above. The specimen is serially sectioned from superior to inferior into 14 levels and entirely submitted as follows: BLOCK FLORIAN A1-A3 ?Level 1, perpendicular to superior margin, medial to lateral A4 ?Level 2, medial half A5 ?Level 2, lateral half A6, A7 ?Level 3, medial half, thinned A8 ?Level 3, lateral half A9 ?Level 4, anterior-medial A10 ?Level 4, anterior-lateral A11, A12 ? Level 4, posterior-medial, thinned A13 ?Level 4, posterior-lateral A14 ?Level 5, anterior-medial A15 ?Level 5, anterior lateral A16 ?Level 5, posterior-medial A17 ?Level 5, posterior-lateral A18 ?Level 6, anterior half A19 ?Level 6, posterior-medial A20 ?Level 6, posterior-lateral A21 ?Level 7, anterior-medial A22 ?Level 7, anterior-lateral A23 ?Level 7, posterior-medial A24 ?Level 7, posterior-lateral A25 ?Level 8, anterior-medial A26 ?Level 8, anterior-lateral A27 ?Level 8, posterior-medial A28 ?Level 8, posterior-lateral A29 ?Level 9, anterior-medial A30 ?Level 9, anterior-lateral A31 ?Level 9, posterior-medial A32 ?Level 9, posterior-lateral A33 ?Level 10, anterior-medial A34 ?Level 10, anterior-lateral A35 ?Level 10, posterior-medial A36 ?Level 10, posterior-lateral A37 ?Level 11, anterior-medial A38 ?Level 11, anterior-lateral A39 ?Level 11, posterior-medial A40 ?Level 11, posterior-lateral A41 ?Level 12, medial one-third A42 ?Level 12, middle one-third A43 ?Level 12, lateral one-third A44, A45 ? Level 13, medial one-third, thinned A46 ?Level 13, middle one-third ? A47, A48 ? Level 13, lateral one-third, thinned ? A49-A52 ? Level 14, perpendicular to inferior margin, medial to lateral ? Received fresh and accompanied by two radiographs and labelled Lance and #2-left breast mass is a 17.2 gram lumpectomy specimen that is oriented according to the accompanying requisition which states that a single short suture designates the superior aspect, a double long suture designates the lateral aspect and a double white suture designates the anterior aspect. ??The specimen is in continuity with the lateral margin of specimen (A), as per the surgeon. ??An intraoperative consult is performed (gross only) with the interpretation rendered as above. ??The specimen measures 6.9 cm from superior to inferior by 3.5 cm from medial to lateral and 1.4 cm from anterior to posterior. The specimen is inked as follows: anterior-blue, posterior-black, lateral-yellow, medial-orange and superior and inferior-red. ??Sectioning reveals that the specimen is composed of predominantly yellow lobular adipose tissue admixed with a small amount of firm white, fibrous-appearing tissue. ??There is a 4.0 x 2.1 x 0.5 cm recessed cavity on the anterior aspect that is located centrally. ??No discrete mass is identified. ??The specimen is serially sectioned from superior to inferior into 15 levels and entirely submitted as follows: ?? BLOCK FLORIAN B1-B4 ?Level 1, perpendicular to superior margin, medial to lateral B5 ?Level 2, bisected B6 ?Level 3, bisected and thinned B7 ?Level 4, bisected B8 ?Level 5, bisected B9 ?Level 6, bisected B10 ?Level 7, bisected B11 ?Level 8, bisected B12 ?Level 9, bisected B13 ?Level 10 B14 ?Level 11, bisected B15 ?Level 12, bisected B16 ?Level 13 B17 ?Level 14, bisected B18, B19 ? Level 15, perpendicular to inferior margin, medial to lateral Received fresh labelled Lance and C-#1 left sentinel node, Ct 1267 is a 0.6 x 0.5 x 0.3 cm red-pink firm lymph node with a hemorrhagic cut surface. ??The lymph node is bisected, examined with a macroscope and a scrape prep is performed designated as (SP1) with the interpretation rendered as above. ??The bisected lymph node is submitted entirely as (C). Received fresh labelled Lance and S-nnb-qqkqbklj node #1 is a 2.3 x 0.6 x 0.3 cm red-pink firm lymph node. ??The node is bisected and examined with a macroscope and an intraoperative gross consult is reported with the interpretation rendered as above. ??The bisected node is submitted entirely as (D). Received fresh labelled Lance and E-sentinel node #2, Ct 2658 is a 0.7 x 0.6 x 0.3 cm red-pink firm lymph node with a hemorrhagic cut surface. ??The lymph node is bisected, examined with a macroscope and a scrape prep is performed designated as (SP2) with the interpretation rendered as above. ??The bisected node is submitted entirely as (E). Received fresh labelled Lance and F-sentinel node #3, Ct 363 are two red-pink, rubbery lymph nodes which measure 0.6 x 0.3 x 0.3 cm and 2.4 x 0.4 x 0.4 cm. ??Both lymph nodes are bisected revealing hemorrhagic cut surfaces. These two nodes are examined with a macroscope and a gross-only intraoperative interpretation is rendered as above. ??The bisected nodes are submitted as (F1) and (F2). Received fresh labelled Lance and G-#4 sentinel node, Ct 364 is a 3.0 x 0.8 x 0.5 cm red-pink firm lymph node. ??The lymph node is bisected revealing a hemorrhagic cut surface. ??The node is examined with a macroscope and a gross-only intraoperative interpretation is rendered as above. ??The bisected node is submitted entirely as (G). Received fresh labelled Lance and H-#5 sentinel node, Ct 385 is a 0.6 x 0.3 x 0.3 cm red-pink firm lymph node. ??The node is bisected revealing a hemorrhagic cut surface. ??The node is examined with a macroscope and a scrape prep is performed designated as (SP3) with the interpretation rendered as above. ??The bisected node is submitted entirely as (H). Received fresh labelled Lance and I-left axillary sentinel node XVIVO 82 is a 0.5 x 0.2 x 0.2 cm red-pink firm lymph node. ??The node is bisected, examined with a macroscope and a gross only intraoperative interpretation is rendered as above. ??The bisected node is submitted entirely as (I). Received fresh labelled Natalio and J-left axillary sentinel node XVIVO 81 are two red-pink, firm lymph nodes which measure 0.2 x 0.1 x 0.1 cm and 0.3 x 0.2 x 0.2 cm. ??The larger node is bisected and both nodes are examined with a macroscope and intraoperative interpretations are rendered as above. ??The larger bisected node is submitted entirely as (J1) and the smaller node is submitted intact as (J2). (Dr. Abimael Stevenson)/mpl ESTROGEN AND PROGESTERONE RECEPTOR IMMUNOPEROXIDASE STAINS ? Date Ordered: ? 03/08/2005 ? Status: ?? Signed Out ?Date Complete: ? 03/08/2005 ? By: ??Ingrid Olmos ? Date Reported: ? 03/08/2005 ? Interpretation ? Breast, left, excisional biopsy - Adenocarcinoma, invasive. 1. ?Negative for estrogen receptors. 2. ?Negative for progesterone receptors. ?? Description ? Tissue submitted: Paraffin embedded tissue block labelled [id number] (A27) from [facility]. An immunohistochemical assay for estrogen receptors (ER1D5, Dako) and progesterone receptors ([id number], Dako) has been performed on this specimen. Standard heat activated antigen retrieval protocol (citrate buffer at pH 7.6 and 98 C x 30 minutes) was employed followed by automated immunostaining. Intranuclear receptor complexes were visualized on tissue sections using an HRP polymer immunohistochemical technique. ? Results are reported as negative (no nuclear staining) or positive with the proportion of positive cells noted. ??Estrogen receptor expression in <5% of tumor cells may not have a strong interaction with estrogen receptor modulators such as Tamoxifen. ??(Dr. Lakhani)/nolberto ? NOTE: ??One or more of the reagents used in immunohistochemical testing in this case may not have been cleared or approved by the U.S. Food and Drug Administration (FDA). ??The FDA has determined that such clearance or approval is not necessary. ??These tests are used for clinical purposes. ??They should not be regarded as investigational or for research. ??These reagents' ??performance characteristics have been determined by [facility]. ??This laboratory is certified under the Clinical Laboratory Improvement Amendments of 1988 (CLIA-88) as qualified to perform high complexity clinical laboratory testing. Document reviewed and electronically signed by: ? MIKEY LAKHANI MD ? Report date: 03/08/2005 By the signature above, the attending physician certifies that he/she has personally conducted a gross and/or microscopic examination of the described specimens and rendered or confirmed the above diagnosis. C-erb-B2 IMMUNOPEROXIDASE STAIN ? Date Ordered: ? 03/10/2005 ? Status: ?? Signed Out ?Date Complete: ? 03/10/2005 ? By: ??Ingrid Olmos ? Date Reported: ? 03/10/2005 ? Interpretation Description ? Tissue submitted: Paraffin embedded tissue block labelled [id number] (A27) from [facility] Fixative: ?? Formalin ??(Fixation in 10% neutral buffered formalin for 18-24 hours with maximum tissue thickness of 3-4 millimeters is recommended for best assay performance. ??Dako HerceptestTM should not be performed on alcohol fixed tissues.) ? A c-erb-B2 (Her2/cynthia) assay (Dako HerceptestTM) was requested by Dr. Marroquin on this breast carcinoma. ??The assay was performed under appropriate conditions according to the window cutter' s instructions with appropriate assay and tissue controls. ?HerceptestTM Scoring Guidelines (invasive tumor component only) ? 0 ? negative ? No staining or membrane staining in less than 10% of cells ? 1+ ? negative ? Faint partial membrane staining in more than 10% of cells ? 2+ ? positive ?Moderate complete membrane staining in more than 10% of cells ? 3+ ? positive ?Strong complete membrane staining in more than 10% of cells ? ASSAY RESULTS ? HerceptestTM Score: ? 0/negative ?Cells with complete membrane staining: ? None ? Membrane staining intensity: ?N/A ? Partial membrane staining: ?Absent ? Cytoplasmic staining: ? Absent ? Staining pattern: ? N/A ? Staining in benign epithelium: ?Absent ?The c-erb-B2 (Her2-cynthia) assay performed is interpreted as negative. ?? Document reviewed and electronically signed by: ? MIKEY LAKHANI MD ? Report date: 03/10/2005 By the signature above, the attending physician certifies that he/she has personally conducted a gross and/or microscopic examination of the described specimens and rendered or confirmed the above diagnosis. End of Report YEISON MARINELLI 03/02/2005 03/02/2005 10: 16 EST Lamont Marroquin MD MSc PATHOLOGY ORDERABLES YEISON MARINELLI [address] [place] [address] documented in this encounter Visit Diagnoses Not on filedocumented in this encounter Care Teams Digital Marketing Specialist Relationship Specialty Start Date End Date Unknown, Provider, PCP - General 07/26/08 06/16/12 documented as of this encounter
--- OUTSIDE RECORDS SUMMARY | 2023-11-09 16:24 | XMS_ITS | Encounter Summary ---
Author Organization [facility] Address [address] [place] [address] Care Team Providers Care Thread Clipper Name Role Phone Marlon Levine MD Primary Care Provider [phone] Encounter Details Date Type Department Care Team (Latest Contact Info) Description 01/19/2018 14:57 EDT - 01/19/2018 23:59 EDT Hospital Encounter [address] [address] Unknown, Provider, Discharge Disposition: Home or Self [...] Code Departure Means Destination Home or Self Shelter documented in this encounter Plan of Treatment Not on file documented as of this encounter Visit Diagnoses Not on filedocumented in this encounter Care Teams Thread Clipper Relationship Specialty Start Date End Date Marlon Levine MD [address] [place] [address] PCP - General 06/17/12 documented as of this encounter
--- OUTSIDE RECORDS SUMMARY | 2023-11-09 16:24 | XMS_ITS | Encounter Summary ---
Author Organization [facility] Address [address] [place] [address] Care Team Providers Care Lace Burn Out Tender Name Role Phone Marlon Levine MD Primary Care Provider [phone] Encounter Details Date Type Department Care Team (Latest Contact Info) Description 01/05/2016 11:29 EDT - 01/05/2016 23:59 EDT Hospital Encounter [address] [address] Unknown, Provider, Discharge Disposition: Home or Self [...] Code Departure Means Destination Home or Self Assisted documented in this encounter Plan of Treatment Not on file documented as of this encounter Visit Diagnoses Not on filedocumented in this encounter Care Teams Lace Burn Out Tender Relationship Specialty Start Date End Date Marlon Levine MD [address] [place] [address] PCP - General 06/17/12 documented as of this encounter
--- OUTSIDE RECORDS SUMMARY | 2023-11-09 16:24 | XMS_ITS | Encounter Summary ---
Author Organization [facility] Address [address] [place] [address] Care Team Providers Care Biomedical Specialist Name Role Phone Marlon Levine MD Primary Care Provider [phone] Encounter Details Date Type Department Care Team (Late st Contact Info) Description 10/08/2014 Results Only [facility] [phone] Mary Alice Ruby MD [address] [place] [address] [place] [phone] Social History Tobacco Use Types Packs/Day Years [...] Diagnosis Comments PAP TEST- RESULT ONLY Routine 10/08/2014 0:00 EDT documented in this encounter Results * PAP TEST- RESULT ONLY (10/08/2014 0:00 EDT) Pathology Report: CYTOPATHOLOGY REPORT Reports generated via electronic interface contain original data; however they are lacking the format of the original report. Caution should be taken when reading/interpreti ng unformatted reports. Name: ? BILLIE JENNINGS ? Accession #: ? [id number] ? : ? 1970 (Age: 44) ??F ?Collect Date: ? 10/08/2014 ? Location: ? [facility] ? Receive Date: ? 10/09/2014 ? Provider: MARY ALICE RUBY MD Copy to: MARLON LEVINE MD ? Final Report SPECIMEN ADEQUACY ? Satisfactory for Evaluation - transformation zone component present GENERAL CATEGORIZATION ? Negative for Intraepithelial Lesion or Malignancy ?? Specimen/Source: ??Pap Test, Cervix/Endocervix, ThinPrep Imaging System with manual evaluation Document reviewed and electronically signed by: ? Gabrielle Ortiz, CT(ASCP)(IAC) ? Report ??Date: 10/16/2014 15:05 HPV with Pap Test ? Date Ordered: ? 10/16/2014 ? Status: ?? Signed Out ?Date Complete: ? 10/20/2014 ? By: ??System Interface ? Date Reported: ? 10/20/2014 ? Interpretation RESULT: Positive for high or intermediate risk HPV. E6 OR E7 mRNA from one or more types of HPV types 16,18,31, 33,35,39,45,51,52, 56,58,59,66, and 68 is detected by sail repair person mediated amplification. High and intermediate risk HPV types are associated with most squamous intraepithelial lesions and cervical cancers. Comments Document reviewed and electronically signed by: ? System Interface ? Report date: 10/20/2014 By the signature above, the attending physician certifies that he/she has personally conducted a gross and/or microscopic examination of the described specimens and rendered or confirmed the above diagnosis. End of Report [facility] 10/08/2014 10/09/2014 Mary Alice Ruby MD PATHOLOGY ORDERABLES [facility] [address] [place] [address] documented in this encounter Visit Diagnoses Not on filedocumented in this encounter Care Teams Biomedical Specialist Relationship Specialty Start Date End Date Marlon Levine MD [address] [place] [id number] PCP - General 06/17/12 documented as of this encounter
--- OUTSIDE RECORDS SUMMARY | 2023-11-09 16:24 | XMS_ITS | Encounter Summary ---
Author Organization [facility] [place] [address] Care Team Providers Care Department Head College Or [employer] Name Role Phone Marlon Levine MD Primary Care Provider + [phone] Encounter Details Date Type Department Care Team (Late st Contact Info) Description 02/06/2008 Orders Only [place] [address] Margarita Joe MD [facility] DR GENERAL SURGERY [place] [id number] Social History Tobacco Use Types Packs/Day Years [...] Associated Diagnosis Comments SURGICAL PATHOLOGY REPORT Routine 02/06/2008 2:31 PM EST documented in this encounter Results * Surgical Pathology Report (02/06/2008 2:31 PM EST) Surgical Pathology Report [id number] ? Location: [facility] The signing pathologist has (i) examined the relevant preparation(s) for the specimen(s) and (ii) rendered or confirmed the diagnosis(es). . ?Pathology Surgical Pathology Final Report Clinical Information Specimen Submitted: A - Right axillary sentinel nodes: right axillary. B - Non sentinel nodes; right axillary. Clinical History: Not provided Clinical Diagnosis: Left breast cancer Gross Description A - Labeled/Fixative: Labeled with the patient's name, right axillary ?sentinel nodes, right axillary; fresh. Qty/Size/Weight: ?Two, aggregating 2.9 x 2.1 x 1.0 cm. Tissue Description: ?? Fragments of rai-red fibrofatty tissue with admixed ?lymph nodes. ??Two lymph nodes are identified, 2.2 cm ?and 2.0 cm in greatest diameters. Sections/Processing: ??Tissue from each of the two nodes is submitted for ?PCR analysis. ??(A1) node 1; (A2) node 2; (A3) adipose ?tissue. ??(T3) B - Labeled/Fixative: Labeled with the patient's name, nonsentinel nodes, ?right axillary; fresh. Qty/Size/Weight: ?Single, 1.3 x 1.0 x 0.6 cm. Tissue Description: ?? Rai-yellow fragment of fibrofatty and wilver tissue. ?Three discrete nodes are identified, varying in ?greatest diameter from 0.5 cm to 0.8 cm. Sections/Processing: ??(B1) three nodes. ??(T1) ??werner/TONI Microscopic Description Slides reviewed, microscopic description not recorded. For the sentinel nodes NEGATIVE by H&E stain: ?Node ID: ? 1 ?Cassette: ?A1 ?PCR result: ?Negative ?Cytokeratin IHC result*: ? Negative ?Node ID: ? 2 ?Cassette: ?A2 ?PCR result: ?Negative ?Cytokeratin IHC result*: ? Negative Note*: ?? The two cytokeratin (CK) antibodies routinely used in the immunohistochemical evaluation of sentinel nodes are 5D3 and AE1/3. The clinical significance of cytokeratin (CK) only immunoreactivity in a sentinel node is currently unknown. The immunohistochemical studies provide ancillary information and are used only in conjunction with standard diagnostic procedures. Note: GeneSearch ? Breast Lymph Node Test: RNA stabilization and cell lysis solution was added to the specimen. RNA was isolated and three real time reverse transcriptase PCR reactions were performed . Microscopic Description using the [employer] GeneSearch ? Breast Lymph Node test. The sentinel lymph node and tested for the expression of mammoglobin, CK19 and PBGD using gene specific primers for amplification and probes for detection on the ScaleXtreme Smartcycler. Interpretation: ??Positive expression of the mammoglobin and CK19 genes is associated with the presence of metastasized breast epithelial cells. (Am J Surgery 194:426-432, 2007 & J. Molecular Diagnostics 7(3):237-336, 2005) This test has been approved by the U.S. Food and Drug Administration. ??Its interpretation is based on the current understanding of the metastatic nature of breast cancer cells. While DNA testing is very accurate, rare diagnostic errors due to various pre- and post-analytical variables do occur. Diagnosis Specimens A and B: ??Right axillary lymphadenectomy: Total no. nodes sampled: ? 5 ??No. non-sentinel nodes: ?3 (Specimen B) ?? No. positive for carcinoma: ?? 0 (H&E stain only) ??No. sentinel nodes: ?2 (Specimen A) ?? No. positive for carcinoma: ?? 0 (H&E and cytokeratin IHC) ?? No. with IHC (+) cells only: ??0 (cells not seen by H&E, see Microscopy*) ?? No. negative for carcinoma: ?? 2 (both H&E and cytokeratin IHC) *See Microscopy for PCR results CR-0 02/08/08 JRP 02/11/08 Verified by: ? Zuleika Cheng MD ?Pathologist ?(Electronic Signature) The attending pathologist whose signature appears on this report has reviewed all diagnostic slides and has edited the gross and/or microscopic portion of the report in rendering the final pathologic diagnosis. MENDEL AVERY 02/06/2008 2:31 PM EST Margarita Joe MD PATHOLOGY/CYTOLOGY ORDERABLES Performing Organization Address City/State/[facility] [place] Phone Number MENDEL [facility] documented in this encounter Visit Diagnoses Not on filedocumented in this encounter Care Teams Department Head College Or University Relationship Specialty Start Date End Date Marlon Levine MD [address] [place] [address] PCP - General 06/20/12 documented as of this encounter
--- OUTSIDE RECORDS SUMMARY | 2023-11-09 16:24 | XMS_ITS | Encounter Summary ---
Author Organization [facility] Address [address] [place] [address] Care Team Providers Care Chemist Internship Name Role Phone Unknown, Provider Primary Care Provider [phone] Encounter Details Date Type Department Care Team (Late st Contact Info) Description 07/26/2008 Office Visit [facility] [address] [place] [address] Maj iMguel MD [address] [place] [phone] Social History Tobacco Use Types Packs/Day Years Used Date Smoking Tobacco: Never Assessed Sex and Gender Information Value Date Recorded Sex Assigned at Not on file Gender Identity Not on file Sexual Orientation Not on file documented as of this encounter Progress Notes * Maj Miguel MD - 07/04/20092037 EDT Department - Physician Summary Registration Date/Time: 07/26/2008 8:33 HISTORY OF PRESENT ILLNESS Chief Complaint: fever last night at 5pm. This started yesterday and is now gone. At its maximum, severity described as moderate. When seen in the E.D., it was gone. Modifying factors- Not worsened by anything. Not relieved by anything. (Pt noted right axillary pain Monday morning which was mild, but worsening. Notes history of axillary node dissection and then aspiration of fluid 5 weeks ago [place] [facility] Last night had temp of 100.2. Feels chilled.). The patient has had similar symptoms previously. These occurred occasionally. The patient was seen recently by a health care provider. (on Monday for chemotherapy via port, also on PO cyclophosphamide .). REVIEW OF SYSTEMS The patient has had fever, chills and a mild headache. No sore throat, sinus drainage, nasal congestion, cough or difficulty breathing. No chest pain, abdominal pain, nausea, vomiting or diarrhea. Noblack stools, bloody stools, difficulty with urination, skin rash or back pain. No calf pain, blackouts or double vision. No difficulty with ambulation. PAST HISTORY breast cancer on left 2004. Breast cancer on right Jan 2008, lumpectomy and lymph node removal, seroma with aspiration 5 weeks ago. Medications: cyclophosmamide, prochlorperazine.. The patient's medications have been reviewed. Allergies: zithromax. SOCIAL HISTORY Nonsmoker. ADDITIONAL NOTES The nursing notes have been reviewed. PHYSICAL EXAM Appearance: Alert. nontoxic appearing. Vital Signs: Have been reviewed- heart rate normal (- T 36.4114 - BP 154 / 81). Eyes: Pupils equal, round and reactive to light. Eyes normal inspection. ENT: Nose normal. Pharynx normal. Neck: Normal inspection. Neck supple. CVS: Tachycardia. Heart sounds normal. Pulses normal. Respiratory: No respiratory distress. Breath sounds normal. Chest nontender. scoliosis. Abdomen: Abdomen soft and nontender. No organomegaly. Back: scoliosis. No CVA tenderness. Skin: Skin warm. Extremities: No lower extremity edema. right axilla: tender,nonerythematous, fluctuant mass 4 X 4cm. Tenderness without erythema or cords medial proximal arm, no cords or edema, NVI. Neuro: Oriented X 3. LABS, X-RAYS, AND EKG Chest X-ray: No acute disease. No infiltrate. CBC: WBC 7.3. HCT 28.7. Platelets 147. Chemistries: Normal. Coagulation Studies: PT 15.2. INR 1.2. PTT 112. Note - Tests: (US: no DVT. 3.2X 2.5 cm fluid collection, appears simple with some internal echos, ddx seroma, abscess, lymphocele.). PROGRESS AND PROCEDURES E.D. Course: byCXR, US, labs ordered 09:06. seen by surgery, aspiration done, sent for culture Pt remains afebrile . Discussed case with physician . [place]ology [place] [facility] Bernal. Reviewed test results. Agreed upontreatment plan. Physician will see patient in office. Patient/family counseled. Disposition: Condition: stable. CLINICAL IMPRESSION Breast cancer, no neutropenia at this time. Right axillary fluid collection, s/p drainage Fever by history . INSTRUCTIONS Rest. (The culture results from the fluid collection are pending, please ask your doctor to check these. ). Warnings: Further evaluation is necessary. SEDATIVE MEDICATION: You were given sedative medication in the emergency department. Do not drive or operate dangerous machinery. GENERAL WARNINGS: Return or contact your physician immediately if your condition worsens or changesunexpectedly, if not improving as expected, or if other problems arise. increased pain, swelling, shaking chills , fever. Prescription Medications: Keflex 500 mg: take 1 capsule orally every 6 hours for 7 days. No refills. Generic substitute OK. Follow-up: Follow upwith Doctor Devin Monday. (Electronically signed by Maj Lamont M.D. 07/28/2008 9:02) Addenda for BILLIE STEPHENSON VisitID: [id number] Date: 07/26/2008 07/29/2008 11:52 Culture of rt axillary seroma showed mod Streptocccus, alpha hemolytic. Pt discharged on Keflex 500mg QID x 7 days. Pt is on chemo for breast cancer, no neutropenia. No LMD listed on lab form. signed by Luz Wheatley R.N. [facility] - 07/29/2008 11:52) Department - Nursing Summary Registration Date/Time: 07/26/2008 8:33 TRIAGE Initial Assessment Triage time 08:34. Acuity: LEVEL 3. BP: 154 / 81. HR: 114. RR: 17. Temp: 36.4 C (tympanic). Alert. No acute distress. --837 Yohana De Paz R.N.. Medications (Cyclophosphamide 100mg BID). Prochlorperazine: 5mg four times a day, as needed. --837 Yohana De Paz R.N.. Allergies AZITHROMYCIN. --837 Yohana De Paz R.N.. History Chief Complaint: FEVER. This started yesterday. Pain level now: 8/10. Reports fatigue. The patient has had a headache. Treatment HAND STITCHER: None. PAST HX: Breast cancer. SOCIAL HX: Nonsmoker. No alcohol use. Functional assessment: no impairments noted. The nutritional risk assessment revealed no deficiencies. No report of abuse. Arrived by private vehicle and accompanied by friend. Historian: patient. (Patient currently on chemo for breast cancer. Complaining of right armpit pain.). --837 Yohana De Paz R.N.. Interventions To room. --837 Yohana De Paz R.N.. NURSING PROGRESS NOTES Two patient identifiers checked. Patient gowned. Call light placed in reach. Bed placed in lowest position. Brakes of bed on. --841 Yohana De Paz R.N. Two patient identifiers checked. Patient gowned. Call light placed in reach. Side rails up x 2. Bedplaced in lowest position. Brakes of bed on. --0932 Zenon MondragonMWalt (Prior note made by this RN.). --0934 Joyce Fragoso R.N. MORPHINE 3mg in 3 cc normal saline slow IVP over 1 minute. IV patency established. IV site checked:no pain, redness, or swelling. IV flushed thoroughly pre- and post-medication administration. Sedative drug warning given to patient. ZOFRAN 4 mg diluted with NS slow IVP over 1 minute. IV patency established. IV site checked: no pain, redness, or swelling. IV flushed thoroughly pre- and post-medication administration. The patient is calm and resting quietly. Patient reports current pain level as 8/10. Pain level (axillary pain). No respiratory distress. Skin is warm and dry. Skin color within normal limits. Patient transported to radiology by stretcher. --0907 Joyce Fragoso R.N. (Critical Value Per Lab: PTT 112). --1008 Zenon HansenM.TWendy (U/S at bedside for study.). --1033 Joyce Fragoso R.N. (Pt resting quietly, nad. Supportive director of diversity and inclusion at bedside. Pt reports pain unchanged but would liketo wait and see if area will be drained- as that usually relieves discomfort.). --1118 Joyce Fragoso R.N. Clean catch urine collected with return of yellow-colored clear urine; odor is normal (SG - 1.015, pH - 7.0, URO - 1.0, WILLIAM - Trace, all else negative). --1141 Zenon LipscombMWalt (culture and gram stain of right axillary seroma sent to lab, specimen obtained by surgical scrub technician). --1239 Laurel Huerta R.N. BP: 129 / 63 right leg. HR: 94. RR: 16. Temp: 98.9 oral. The patient is resting quietly. --1244 Kaye Sy. BP: 125/ 60. HR: 101. RR: 16. O2 saturation: 99 % room air. --1346 Kathy Greenfield R.N. TYLENOL 650 mg PO. . --1358 Kathy Greefnield R.N. Reassessment after medication administered. The patient is sleeping. --1437 Kathy Greenfield R.N. (Pt eating turkey sandwich for lunch). --1456 Kathy Greenfield R.N. KEFLEX 500 mg PO. . --1506 Kathy Greenfield R.N.. IV / I&O Flowsheet MediPort in place (20g 3/4 in arriola needle- site anesthetized w/ wheel of 1% lidocaine per pt request. 1st attempt, blood discard and drawn- sent to lab). --0933 Zenon MondragonMWendyTWendy (Mediport accessed and blood draw by this RN.).--0934 Joyce Fragoso R.N. Blood samples drawn from the left antecubital space by nurse: blood culture (2nd set). (site prepped w / 3 passes of alcohol due to pt allergy to chlorhexidine (hives)). --0934 Joyce Fragoso R.N. Blood samples drawn with syringe by nurse: purple, blue and tiger top; blood culture (1st set). MediPort accessed. 10 mL blood drawn and discarded. Line flushed post blood draw with 10 mL normal saline and 5 mL (100 units / mL) heparin. --0933 Joyce Fragoso R.N.. DISPOSITION / DISCHARGE Condition at departure: improved. Patient reports pain level on departure as 4/10. No learning barriers present. Discharge instructions reviewed with the patient. Reviewed medication side effects, precautions, dosing and course; prescription (s) given to the patient (Keflex 500 mg q 6 x 7 days). Reviewed referrals (F/U with Dr. Beltran on Monday). Activity restrictions (rest) reviewed. Patient verbalized understanding. Written instructions provided in Chinese. (Port flushed with 10 cc NS then 2.5 cc Heparin (100 units/mL) and de- accessed.). The patient was discharged home and accompanied by director of diversity and inclusion. The patient left the Emergency Department ambulatory and via private vehicle. Administration Assistant driving. --1531 Kathy Greenfield R.N. Fall risk assessment completed. No fall risk identified. --1531 Kathy Greenfield R.N.. Zenon Amaya R.N.M.TZenon Horton R.N.MWalt YarbroughMYvan Trujillo R.N. Locked/Released at 07/27/2008 8:41 by Laurel Huerta R.N. documented in this encounter Plan of Treatment Not on file documented as of this encounter Visit Diagnoses Not on filedocumented in this encounter Care Teams Chemist Internship Relationship Specialty Start Date End Date Unknown, Provider, PCP - General 07/26/08 06/16/12 documented as of this encounter
--- OUTSIDE RECORDS SUMMARY | 2023-11-09 16:24 | XMS_ITS | Encounter Summary ---
Author Organization [facility] Address [facility] [place] [address] Care Team Providers Care Security Site Supervisor Name Role Phone Marlon Levine MD Primary Care Provider [phone] Encounter Details Date Type Department Care Team (Late st Contact Info) Description 04/21/2010 2:35 PM EST Follow-[place] [address] Margarita Joe MD [facility] [place] [address] Discharge Disposition: Home Social History Tobacco Use [...] on filedocumented in this encounter Care Teams Security Site Supervisor Relationship Specialty Start Date End Date Marlon Levine MD [address] [place] [address] PCP - General 02/16/10 06/19/12 documented as of this encounter
--- OUTSIDE RECORDS SUMMARY | 2023-11-09 16:24 | XMS_ITS | Encounter Summary ---
Author Organization [facility] Address [address] [place] [address] Care Team Providers Care Wharf Builder Name Role Phone Unavailable Primary Care Provider Unavailabl e Encounter Details Date Type Department Care Team (Late st Contact Info) Description 03/10/2005 7:09 EST - 03/10/2005 11:59 EST Hospital Encounter [facility] [address] [place] [address] Deep Rutherford MD MSc [address] [place] [phone] Discharge Disposition: Home or Self Care Social [...] OR Surgeon - Deep Rutherford MD - 03/10/2005 0000 EST PROCEDURE REPORT PT TYPE: OPPROC PT LOC: [id number] SERVICE DATE: 03/10/2005 SURGEON: Deep Rutherford MD WASH HOUSE WORKER: n/a PREOPERATIVE DIAGNOSIS: Left breast invasive ductal adenocarcinoma s/p lumpectomy with a positive medial margin. POSTOPERATIVE DIAGNOSIS: Left breast invasive ductal adenocarcinoma s/p lumpectomy with a positive medial margin. PROCEDURE: Reexcision, lumpectomy margins of left breast cancer. ANESTHESIA: General. INDICATIONS: This is a 34-year-old female, status post excision of left breast invasive ductal adenocarcinoma, 2.9 cm in greatest dimension, PT2 PN0 with the initial surgery being performed on March 02, 2005. Intraoperative gross margin check by pathology appeared to have clear margins; however, on final pathology, the patient was found to have a positive medial margin and a posterior margin that was negative, but close, less than 1 mm. Given the risks of recurrence with that positive margin,the patient was recommended to have reexcision of margins. NARRATIVE: The patient was met by the surgical and anesthesia team. She was escorted to the operating room, and positioned supinely on the operating room table. The consent was reviewed, as was the site of surgery. The appropriate anesthesia monitoring devices were applied. Lower extremity compression devices and appropriate supportive padding were placed. The patient was then induced under general anesthesia. The left breast was then prepped and draped in usual standard fashion. A curvilinear incision was made through the previous incision, above the nipple on the left breast.This allowed access into the prior surgical excision cavity. Fluid was present and was drained withthe suction. The medial margin of the lumpectomy cavity was identified and was reexcised. The posterior margin was likewise further excised, and the posterior resection carried down to the level of the chest wall musculature. An additional inferior-medial margin was then removed. The three specimens were sent down to pathology for permanent evaluation. Surgical clips were placed around the periphery of the cavity to help plan radiation peters. The surgical site was then irrigated and inspected f or hemostasis, which was achieved using electrocautery. Once hemostasis had been adequatelyinsured,the wound was closed in layers with 3-0 Vicryl interrupted deep dermals, followed by a 4-0 Monocrylsubcuticular stitch. The patient had received infiltration of local anesthesia, both prior to incision and at the time of closure of the wound. Sterile occlusive dressings were placed over the incision. The patient was awakened, extubated and escorted to the recovery room where she was in stable condition. ESTIMATED BLOOD LOSS: Minimal. IV FLUIDS: 700 cc. URINE OUTPUT: No Sharma. SPECIMENS: Additional medial margin, left breast; additional posterior margin, left breast; additional inferomedial margin, left breast. COMPLICATIONS: None. DISPOSITION: Awake and extubated, in stable condition, to the recovery room. Signed by Deep Rutherford MD 03/11/2005 14:14 ATed Timoteo Ch MDTed A James, MD Deep Rutherford MD - Deep Rutherford MD A - CK Job ID: [id number] Document ID: [id number] cc: Deep Rutherford MD Cancer Data Registry Marlon Levine MD [address] [place] [id number] \* MERGEFORMAT Deep Rutherford MD A - ck Job ID: [id number] Document ID: [id number] cc: Deep Rutherford MD Cancer Data Registry Marlon Levine MD documented in this encounter Plan of Treatment Not on file documented as of this encounter Visit Diagnoses Not on filedocumented in this encounter
--- OUTSIDE RECORDS SUMMARY | 2023-11-09 16:24 | XMS_ITS | Encounter Summary ---
Author Organization [facility] Address [address] [place] [address] Care Team Providers Care Allocation Analyst Name Role Phone Marlon Levine MD Primary Care Provider [phone] Encounter Details Date Type Department Care Team (Latest Contact Info) Description 03/02/2018 9:58 EST - 03/02/2018 23:59 [facility] Hospital Encounter [address] [address] Unknown, Provider, Discharge Disposition: Home or Self [...] Code Departure Means Destination Home or Self [place] documented in this encounter Plan of Treatment Not on file documented as of this encounter Visit Diagnoses Not on filedocumented in this encounter Care Teams Allocation Analyst Relationship Specialty Start Date End Date Marlon Levine MD [address] [place] [address] PCP - General 06/17/12 documented as of this encounter
--- OUTSIDE RECORDS SUMMARY | 2023-11-09 16:24 | XMS_ITS | Encounter Summary ---
Author Organization [facility] Address [facility] [place] [address] Care Team Providers Care Telephone Betting Clerk Name Role Phone Marlon Levine MD Primary Care Provider + [phone] Encounter Details Date Type Department Care Team (Late st Contact Info) Description 08/07/2007 Orders [place] [address] Leonel Dickerson MD [facility] [place] [address] Social History Tobacco Use Types Packs/Day Years [...] Associated Diagnosis Comments SURGICAL PATHOLOGY REPORT Routine 08/07/2007 1:01 PM EDT documented in this encounter Results * Surgical Pathology Report (08/07/2007 1:01 PM EDT) Surgical Pathology Report [id number] ? Location: 3K The signing pathologist has (i) examined the relevant preparation(s) for the specimen(s) and (ii) rendered or confirmed the diagnosis(es). . ?Pathology Surgical Pathology Final Report Clinical Information Specimen Submitted: A - Right breast MRI biopsy Clinical History: Focal enhancement Clinical Diagnosis: Invasive cancer/papilloma/FC D Gross Description Labeled/Fixative: ? Right breast, formalin. Qty/Size/Weight: ?Multiple cylindrical cores of mistry-white and ?yellow-white, fatty and fibrofatty tissue, ranging ?from 0.4 x 0.4 cm to 1.0 x 0.4 cm, admixed with blood ?clot. Sections/Processing : ??(T4) ??aje/SNS Microscopic Description Slides reviewed, microscopic description not recorded. Diagnosis Needle biopsies: ?Right breast. Diagnosis: ?Focal fibrocystic disease with fibroadenomatous ? change, adenosis Microcalcifications : ??NA CR-0 08/08/07 VAM 08/08/07 Verified by: ? Tobias Vora MD ?Pathologist ?(Electronic Signature) The attending pathologist whose signature appears on this report has reviewed all diagnostic slides and has edited the gross and/or microscopic portion of the report in rendering the final pathologic diagnosis. MENDEL AVERY 08/07/2007 1:01 PM EDT Leonel Dickerson MD PATHOLOGY/CYTOLOGY O RDERABLES MENDEL AVERY documented in this encounter Visit Diagnoses Not on filedocumented in this encounter Care Teams Telephone Betting Clerk Relationship Specialty Start Date End Date Marlon Levine MD [address] [place] [address] PCP - General 06/20/12 documented as of this encounter
--- OUTSIDE RECORDS SUMMARY | 2023-11-09 16:24 | XMS_ITS | Encounter Summary ---
Author Organization [facility] Address [address] [place] [address] Care Team Providers Care Guest Experience Representative Name Role Phone Unknown, Provider Primary Care Provider [phone] Encounter Details Date Type Department Care Team (Late st Contact Info) Description 03/10/2005 Results Only [facility] Surgical Oncology - [facility] [address] [place] [address] Lamont Marroquin MD MSc [address] [place] [phone] Social History Tobacco Use Types Packs/Day Years Used Date Smoking Tobacco: Never Assessed Sex and Gender Information Value Date Recorded Sex Assigned at Not on file Gender Identity Not on file Sexual Orientation Not on file documented as of this encounter Plan of Treatment Not on file documented as of this encounter Procedures Procedure Name Priority Date/Time Associated Diagnosis Comments SURGICAL PATHOLOGY Routine 03/10/2005 0:00 EST documented in this encounter Results * SURGICAL PATHOLOGY (03/10/2005 0:00 EST) Pathology Report: SURGICAL PATHOLOGY REPORT Reports generated via electronic interface contain original data; however they are lacking the format of the original report. Caution should be taken when reading/interpretin g unformatted reports. Name: ? BILLIE LANCE ? Accession #: ? [id number] ? : ? 1970 (Age: 34) ??F ? Collect Date: ? 03/10/2005 ? Location: ? [facility] ? Receive Date: ? 03/10/2005 ? Provider: LAMONT MARROQUIN MD Copy to: ? Final Pathologic Diagnosis: ? Updated: ??03/15/05 ? SYNOPTIC DIAGNOSIS FOR MALIGNANT BREAST TUMORS Laterality: ?Left ? AJCC (6th edition): pT2, pN0 ?? Specimen: ?Excisional biopsy, re-excision x2, sentinel node biopsy Tumor Type: ?Invasive ductal Tumor Size: ?2.9 x 2.0 x 2.8 cm Dustin Combined Histologic Scores: ? Tubules: ?3 ? Nuclei: ?3 ? Mitotic Rate: ? 2 (actual count 12/10 HPF with field diameter of 0.54 mm) ? Total: ?8 Differentiation: ? Poor Margins: ?Negative (greater than 1.0 cm from all margins) DCIS: ? Solid, focal necrosis with microcalcifications , nuclear grade III % DCIS: ?10% DCIS margins: ?Negative (greater than 1.0 cm from all margins) LVI: ? Not identified Lymph nodes: ?0/10 (positive/total count) ER/ GA: ?ER negative (0%); GA negative (0%)([id number]) C-erb-B2: ? Negative ([id number]) ?? Final Pathologic Diagnosis: ? A. ?Breast, left, medial margin, excision: 1. ?No residual malignancy present. 2. ?Fibrocystic changes including: ? - Fibroadenomatoid changes. - Interlobular fibrosis. - Microcyst formation. - Adenosis. - Apocrine metaplasia. B. ?Breast, left, posterior margin, excision: 1. ?No residual malignancy present. 2. ?Fibrocystic changes including: ? - Fibroadenomatoid changes. - Interlobular fibrosis. - Microcyst formation. - Adenosis. - Apocrine metaplasia. C. ?Breast, left, inferior medial margin, excision: 1. ?No residual malignancy present. 2. ?Fibrocystic changes including: ? - Fibroadenomatoid changes. - Interlobular fibrosis. - Microcyst formation. - Adenosis. - Apocrine metaplasia. Document reviewed and electronically signed by: Cely Barroso MD Report ??Date: 03/15/2005 22:07 By the signature above, the attending physician certifies that he/she has personally conducted a gross and/or microscopic examination of the described specimens and rendered or confirmed the above diagnosis. Specimen(s) Received: A. ?Additional medial margin left breast B. ?Additional posterior margin left breast C. ?Additional inferior medial margins left breast Clinical History: ? Left breast cancer Gross Description: ? Received in normal saline labelled Natalio and Jamar-additional medial margin left breast is a 66 gram product of a breast excision which measures 8.0 x 6.0 x 1.5 cm in thickness. ??The old margin is identified by fibrous tissue. ??This margin is inked blue. ??The new margin is inked black. ??The specimen is serially sectioned revealing a generally yellow, lobular adipose tissue with areas of tomas fibrosis but no discrete lesions. ??The thickness of the re-excision margin varies from 0.4 cm to 3.0 cm. The entire new margin is submitted within 1.0 cm. Approximately 98% of the entire specimen is submitted. The specimen is submitted as follows: BLOCK FLORIAN A1 ?One level A2, A3 ?Adjacent sections A4, A5 ?Adjacent sections A6, A7 ?Adjacent sections A8, A9 ?Adjacent sections A10, A11 ? Adjacent sections A12 ?One level A13, A14 ? Adjacent sections A15, A16 ? Adjacent sections A17-A19 ? Adjacent sections A20, A21 ? Adjacent sections A22 ?One level A23, A24 ? Adjacent sections A25, A26 ? Adjacent sections A27, A28 ? Adjacent sections A29, A30 ? Adjacent sections A31, A32 ? Adjacent sections A33 ?One level A34 ?One level Received in normal saline labelled B-additional posterior margin left breast is a 32 gram product of a partial breast re-excision which measures 6.2 x 5.0 cm and is 0.5 to 1.5 cm in thickness. ??One surface is tomas-brown and appears to be the old margin. ??This side will be inked blue. ??The opposite surface is tomas-yellow with the majority of fibrous tissue but no apparent granulation tissue. ??This side is inked black, representing the new margin. Sectioning reveals a generally fibrotic breast with a minimum amount of yellow lobular adipose tissue. ??The specimen is entirely submitted as follows: BLOCK FLORIAN B1 ?Two levels B2 ?One level B3, B4 ?Adjacent sections B5 ?Adjacent sections of one level B6, B7 ?Adjacent sections B8, B9 ?Adjacent sections B10, B11 ? Adjacent sections B12, B13 ? Adjacent sections B14, B15 ? Adjacent sections B16, B17 ? Adjacent sections B18, B19 ? Adjacent sections B20 ?One level B21 ?One level B22-B24 ? Two levels each Received in normal saline labelled Lance and C-additional inferior medial margins left breast is a 47 gram product of a partial breast re-excision which measures 8.5 x 4.0 cm and varies in width from 0.5 to 3.5 cm. ??The old margin is identified by tomas, fibrotic tissue. ??The new margin is composed of generally yellow lobular adipose tissue. ??The old margin is inked black; the new margin is inked blue. ??Sectioning reveals generally yellow lobular adipose tissue. ??The specimen is entirely submitted as follows: BLOCK FLORIAN C1- C3 ?One level each C4, C5 ?Adjacent sections C6, C7 ?Adjacent sections C8, C9 ?Adjacent sections C10, C11 ? Adjacent sections C12, C13 ? Adjacent sections C14-C26 ? One level each (Dr. Cole)/mpl End of Report [facility] 03/10/2005 03/10/2005 11: 29 EST Lamont Marroquin MD MSc PATHOLOGY ORDERABLES [facility] [address] [place] [address] documented in this encounter Visit Diagnoses Not on filedocumented in this encounter Care Teams Guest Experience Representative Relationship Specialty Start Date End Date Unknown, Provider, PCP - General 07/26/08 06/16/12 documented as of this encounter
--- OUTSIDE RECORDS SUMMARY | 2023-11-09 16:24 | XMS_ITS | Encounter Summary ---
Author Organization [facility] Address [address] [place] [address] Care Team Providers Care Scout Name Role Phone Marlon Levine MD Primary Care Provider [phone] Encounter Details Date Type Department Care Team (Late st Contact Info) Description 01/05/2016 Results Only [facility] [phone] Mary Alice Ruby MD [address] [place] [address] [place] [phone] Social History Tobacco Use Types Packs/Day Years [...] Date/Time Associated Diagnosis Comments SURGICAL PATHOLOGY Routine 01/05/2016 10 :13 EDT documented in this encounter Results * SURGICAL PATHOLOGY (01/05/2016 10:13 EDT) Pathology Report: SURGICAL PATHOLOGY REPORT Reports generated via electronic interface contain original data; however they are lacking the format of the original report. Caution should be taken when reading/interpreti ng unformatted reports. Name: ? BILLIE JENNINGS ? Accession #: ? [id number] ? : ? 1970 (Age: 45) ??F ? Collect Date: ? 01/05/2016 ? Location: ? [facility] ? Receive Date: ? 01/06/2016 ? Provider: MARY ALICE RUBY MD Copy to: MARLON LEVINE MD ? Final Pathologic Diagnosis: A. ??CERVIX, ANTERIOR, LEEP: - High grade squamous intraepithelial lesion (DANTE II) with extension into endocervical glands. - Resection margins negative for squamous intraepithelial lesion. - Follicular cervicitis. B. ??CERVIX, POSTERIOR, LEEP: - High grade squamous intraepithelial lesion (DANTE II) with extension into endocervical glands. - Resection margins negative for squamous intraepithelial lesion. - Follicular cervicitis. ?? Document reviewed and electronically signed by: JOSE VERDE MD Report ??Date: 01/08/2016 15:58 By the signature above, the attending physician certifies that he/she has personally conducted a gross and/or microscopic examination of the described specimens and rendered or confirmed the above diagnosis. Specimen(s) Received: A. ??Ant cervix B. ??Post cervix Clinical History: 10/13/2015 LSIL, (+) HPV; 11/16/2015 cx bx at 12 o'clock DANTE II, cx bx at 6 o'clock DANTE II and DANTE III; LEEP Gross Description: A. ?Received in formalin labelled with proper patient identification (initials D, P) and ant cervix is an unoriented crescent shaped piece of cervix with cauterized margins (2.4 x 1.3 cm, excised to a depth of 0.3 cm). One aspect of the specimen is surfaced by tomas-pink to purple wrinkled ectocervical mucosa, with a 1.2 cm granulated focus. The ectocervical margins are inked black and the endocervical margins are inked blue. The specimen is serially sectioned and entirely submitted as A1-A4. B. ?Received in formalin labelled with proper patient identification (initials D, P) and post cervix is an unoriented crescent shaped piece of cervix with cauterized margins (1.6 x 1.3 cm, excised to a depth of 0.4 cm). One aspect of the specimen is surfaced by tomas-pink to purple wrinkled ectocervical mucosa, with a tomas-pink granulated focus. The ectocervical margins are inked black and the endocervical margins are inked blue. The specimen is serially sectioned and entirely submitted as B1-B3. BRITNEY Leung (ASCP) 01/06/2016 11:37 AM End of Report [facility] 01/05/2016 10:1 3 EDT 01/06/2016 10:13 EDT Mary Alice Ruby MD PATHOLOGY ORDERABLES Performing Organization Address City/State/[facility] Co de Phone Number [facility] [address] [place] [address] documented in this encounter Visit Diagnoses Not on filedocumented in this encounter Care Teams Scout Relationship Specialty Start Date End Date Marlon Levine MD [address] [place] [address] PCP - General 06/17/12 documented as of this encounter
--- OUTSIDE RECORDS SUMMARY | 2023-11-09 16:24 | XMS_ITS | Encounter Summary ---
Author Organization [facility] Address [address] [place] [address] Care Team Providers Care Supervisor Word Processing Name Role Phone Unknown, Provider Primary Care Provider Encounter Details Date Type Department Care Team (Late st Contact Info) Description 09/11/2009 Results Only [address] [address] Cami Louis MD [address] [place] [phone] Social History Tobacco Use Types Packs/Day Years Used Date Smoking Tobacco: Never Assessed Sex and Gender Information Value Date Recorded Sex Assigned at Not on file Gender Identity Not on file Sexual Orientation Not on file documented as of this encounter Plan of Treatment Not on file documented as of this encounter Procedures Procedure Name Priority Date/Time Associated Diagnosis Comments CYTOPATHOLOGY Routine 09/11/2009 0:00 EDT documented in this encounter Results * CYTOPATHOLOGY (09/11/2009 0:00 EDT) Pathology Report: CYTOPATHOLOGY REPORT ? Reports generated via electronic interface contain original data; ? however they are lacking the format of the original report. ? Caution should be taken when reading/interpreti ng unformatted reports. ? Name: ? BILLIE STEPHENSON ? Accession #: ? [id number] ? : ? 1970 (Age: 39) ??F ?Collect Date: ? 09/11/2009 ? Location: ? [facility] ? Receive Date: ? 09/15/2009 ? Provider: ?CAMI LOUIS MD ? Copy to: ? Specimen/Source: ?Pap Test, Endocervix, ThinPrep Imaging System with ? manual evaluation ? Last Menstrual Period: ? 1 years ago ? Other: ? HPVA - HPV testing requested if ASC-US on the current ThinPrep Pap test. ? SPECIMEN ADEQUACY ? Satisfactory for Evaluation ? - transformation zone component present ? GENERAL CATEGORIZATION ? Negative for Intraepithelial Lesion or Malignancy ? Document reviewed and electronically signed by: ? Cyndy Sulaiman, CT(ASCP) ? Report Date: ??09/18/2009 09:26 ? End of Report ? [facility] 09/11/2009 09/15/2009 Cami Louis MD PATHOLOGY ORDERABLES Performing Organization Address City/State/[facility] Co de Phone Number [facility] [address] [place] [address] documented in this encounter Visit Diagnoses Not on filedocumented in this encounter Care Teams Supervisor Word Processing Relationship Specialty Start Date End Date Unknown, Provider, PCP - General 07/26/08 06/16/12 documented as of this encounter
--- OUTSIDE RECORDS SUMMARY | 2023-11-09 16:25 | XMS_ITS | Encounter Summary ---
Author Organization [facility] Address [address] [place] [address] Care Team Providers Care Mall Plant Caretaker Name Role Phone Unknown, Provider Primary Care Provider [phone] Encounter Details Date Type Department Care Team (Late st Contact Info) Description 02/26/2004 Results Only [facility] [address] [place] [address] Laury Mendoza, JAMIE [address] [place], [place] [address] Social History Tobacco Use Types Packs/Day Years Used Date Smoking Tobacco: Never Assessed Sex and Gender Information Value Date Recorded Sex Assigned at Not on file Gender Identity Not on file Sexual Orientation Not on file documented as of this encounter Plan of Treatment Not on file documented as of this encounter Procedures Procedure Name Priority Date/Time Associated Diagnosis Comments HPV DETECTION, HIGH RISK TYPES Routine 02/26/2004 14:28 EST CYTOPATHOLOGY Routine 02/26/2004 0:00 EST documented in this encounter Results * HUMAN PAPILLOMA VIRUS DNA TEST (02/26/2004 14:28 EST) Specimen Description Cervix, ThinPrep vial [facility] Result Negative for HPV types 16, 18, 31, 33, 35, 39, 45, 51, 52, 56, 58, 59, and 68. [facility] Report Status Final [id number] [facility] 02/26/2004 14:2 8 EST 03/05/2004 14:28 EST Laury Mendoza NP MICROBIOLOGY - GENER AL ORDERABLES [facility] [address] [place] [address] * CYTOPATHOLOGY (02/26/2004 0:00 EST) Pathology Report: CYTOPATHOLOGY REPORT Reports generated via electronic interface contain original data; however they are lacking the format of the original report. Caution should be taken when reading/interpreti ng unformatted reports. Name: ? BILLIE STEPHENSON ? Accession #: ? [id number] : ? 1970 (Age: 33) ??F ?Collect Date: ? 02/26/2004 Location: ? [facility] ? Receive Date: ? 03/01/2004 Provider: ?LAURY MENDOZA NP Copy to: ? Specimen/Source: ?ThinPrep Pap Test, Cervix/Endocervix Last Menstrual Period: ? 02/20/04 Hormonal/Contracep tive Status: ? Tubal ligation: BTL 7 years ago Other: ? HPVDX - HPV testing requested regardless of diagnosis on current ThinPrep Pap test. ? SPECIMEN ADEQUACY ? Satisfactory for Evaluation - transformation zone component present GENERAL CATEGORIZATION ? Negative for Intraepithelial Lesion or Malignancy ? Document reviewed and electronically signed by: ? JENNIFER Payne(ASCP) ? Report Date: ??03/05/2004 12:51 End of Report [facility] 02/26/2004 03/01/2004 Laury Mendoza NP PATHOLOGY ORDERABLES Performing Organization Address City/State/[facility] Co de Phone Number [facility] [address] [place] [address] documented in this encounter Visit Diagnoses Not on filedocumented in this encounter Care Teams Mall Plant Caretaker Relationship Specialty Start Date End Date Unknown, Provider, PCP - General 07/26/08 06/16/12 documented as of this encounter
--- OUTSIDE RECORDS SUMMARY | 2023-11-09 16:25 | XMS_ITS | Encounter Summary ---
Author Organization [facility] Address [address] [place] [address] Care Team Providers Care Wash Helper Name Role Phone Unknown, Provider Primary Care Provider [phone] Encounter Details Date Type Department Care Team (Late st Contact Info) Description 01/26/2001 Results Only [facility] [address] [place] [address] Jerri Bennett, [address] [place] [address] Social History Tobacco Use Types Packs/Day Years Used Date Smoking Tobacco: Never Assessed Sex and Gender Information Value Date Recorded Sex Assigned at Not on file Gender Identity Not on file Sexual Orientation Not on file documented as of this encounter Plan of Treatment Not on file documented as of this encounter Procedures Procedure Name Priority Date/Time Associated Diagnosis Comments CYTOPATHOLOGY Routine 01/26/2001 0:00 EST documented in this encounter Results * CYTOPATHOLOGY (01/26/2001 0:00 EST) Pathology Report: CYTOPATHOLOGY REPORT Reports generated via electronic interface contain original data; however they are lacking the format of the original report. Caution should be taken when reading/interpreti ng unformatted reports. Name: ? BILLIE STEPHENSON ? Accession #: ? [id number] : ? 1970 (Age: 30) ??F ?Collect Date: ? 01/26/2001 Location: ? [facility] ? Receive Date: ? 01/29/2001 Provider: ?JERRI BENNETT ORTHOTIST/PROSTHETIST Copy to: ? Specimen/Source: ?ThinPrep Pap Test, Cervix/Endocervix Last Menstrual Period: ? 01/19/01 ? SPECIMEN ADEQUACY ? Satisfactory for evaluation but limited by scant squamous epithelial component secondary to excessive blood. GENERAL CATEGORIZATION ? Within Normal Limits ? Document reviewed and electronically signed by: ? JENNIFER Barney(ASCP) ? Report Date: ??02/01/2001 10:37 End of Report [facility] 01/26/2001 01/29/2001 Jerri Bennett ORTHOTIST/PROSTHETIST PATHOLOGY ORDERABLES [facility] [address] [place] [address] documented in this encounter Visit Diagnoses Not on filedocumented in this encounter Care Teams Wash Helper Relationship Specialty Start Date End Date Unknown, Provider, PCP - General 07/26/08 06/16/12 documented as of this encounter
--- OUTSIDE RECORDS SUMMARY | 2023-11-09 16:25 | XMS_ITS | Encounter Summary ---
Author Organization [facility] Address [address] [place] [address] Care Team Providers Care Nurse Behavioral Health Care Name Role Phone Unknown, Provider Primary Care Provider [phone] Encounter Details Date Type Department Care Team (Late st Contact Info) Description 12/11/2002 Results Only [address] [address] Cami Louis MD [address] [place] [phone] Social History Tobacco Use Types Packs/Day Years Used Date Smoking Tobacco: Never Assessed Sex and Gender Information Value Date Recorded Sex Assigned at Not on file Gender Identity Not on file Sexual Orientation Not on file documented as of this encounter Plan of Treatment Not on file documented as of this encounter Procedures Procedure Name Priority Date/Time Associated Diagnosis Comments CYTOPATHOLOGY Routine 12/11/2002 0:00 EDT documented in this encounter Results * CYTOPATHOLOGY (12/11/2002 0:00 EDT) Pathology Report: CYTOPATHOLOGY REPORT Reports generated via electronic interface contain original data; however they are lacking the format of the original report. Caution should be taken when reading/interpreti ng unformatted reports. Name: ? BILLIE STEPHENSON ? Accession #: ? [id number] : ? 1970 (Age: 32) ??F ?Collect Date: ? 12/11/2002 Location: ? [facility] ? Receive Date: ? 12/13/2002 Provider: ?CAMI LOUIS MD Copy to: ? Specimen/Source: ?ThinPrep Pap Test, Endocervix Last Menstrual Period: ? 11/25/02 Other: ? Additional clinical information: cervical tenderness & discharge HPVA - HPV testing requested if ASC-US on the current ThinPrep Pap test. ? SPECIMEN ADEQUACY ? Satisfactory for Evaluation - transformation zone component present GENERAL CATEGORIZATION ? Negative for Intraepithelial Lesion or Malignancy ? Document reviewed and electronically signed by: ? JENNIFER Stubbs(ASCP) ? Report Date: ??12/18/2002 11:27 End of Report [facility] 12/11/2002 12/13/2002 Cami Louis MD PATHOLOGY ORDERABLES [facility] [address] [place] [address] documented in this encounter Visit Diagnoses Not on filedocumented in this encounter Care Teams Nurse Behavioral Health Care Relationship Specialty Start Date End Date Unknown, Provider, PCP - General 07/26/08 06/16/12 documented as of this encounter
[2023-11-09] MEDS: Ondansetron 4 MG/2 ML VIAL IVP (17:09)
[2023-11-09] MEDS: Normal Saline 1,000 ML 1000 ML IV ×2 (17:09→18:18)
[2023-11-09] MEDS: ACETAMINOPHEN 1,000 MG/100 ML BTL 400 MG IVPB (17:09)
[2023-11-09 17:12] LABS: Abs Immature Grans 0.01 10^3/uL (0.0-0.06); Absolute Basophil Count 0.02 10^3/uL (0.0-0.2); Absolute Eosinophil Count 0.11 10^3/uL (0.0-0.7); Absolute Monocyte Count 0.33 10^3/uL (0.1-0.8); Absolute Neutrophil Count 3.54 10^3/uL (1.2-6.7); Basophils % 0.4 %; Eosinophils % 2.3 %; HCT 42.6 % (36.0-46.0); HGB 14.2 g/dL (11.2-15.7); Immature Grans % 0.2 %; Lymphocytes % 14.9 %; MCH 31.3 pg (27.0-33.0); MCHC 33.3 % (32.0-36.0); MCV 94 fL (80-95); MPV 10.8 fL (8.0-11.0); Neutrophils % 75.2 %; Platelet Count 143 10^3/uL (130-400); RBC 4.53 10^6/uL (3.93-5.22); RDW 12.1 % (11.7-14.6); WBC 4.71 10^3/uL (4.4-10.8)
[2023-11-09 17:59] LABS: ALT 17 U/L (14-59); AST 13 U/L (15-37); Albumin 3.4 g/dL (3.4-5.0); Alkaline Phosphatase 89 U/L (46-116); Anion Gap 9.7 mmol/L (3-11); BUN 16 mg/dL (7-18); Bilirubin, Total 0.42 mg/dL (0.2-1.0); CO2 26.3 mmol/L (21.0-32.0); CREATININE 0.5 mg/dL (0.55-1.02); Chloride 105 mmol/L (98-107); Estimated GFR 112.78 (mL/min/1.73m2); Glucose 85 mg/dL (74-106); Magnesium 1.5 mg/dL (1.8-2.4); Sodium 141 mmol/L (136-145); Total Protein 6.6 g/dL (6.4-8.2); Troponin I < 50 ng/L (< or =60)
--- NOTE | 2023-11-09 18:00 | W.ED.GENAD ---
Discharge Plan Disposition Patient Disposition: Home Condition: Stable Discharge Details Clinical Impression: COVID-19 Primary Care Provider: Yumiko Tyler ED Provider: Alondra Gould Home Meds and New Rx's Prescriptions: New prochlorperazine maleate [Compazine] 10 mg tablet 10 mg PO Q6H PRNQty: 10 0RF magnesium 250 mg tablet 250 mg PO DAILY Qty: 10 0RF Continued cyclobenzaprine 5 mg tablet 5 mg PO TID PRN (Reason: back pain) Qty: 30 0RF Rx Instructions: Take 1 tablet by mouth three times a day as needed for back pain Discharge Instructions Instructions: COVID-19 ED Additional Instructions: Take the Compazine as prescribed Take the magnesium as prescribed Increase fluids Take the molnupiravir, you should start it this evening as you have 5 days from onset of symptoms start this medication Try to have at least eight 8 ounce glasses of water daily return earlier should you have new or worsening complaints Referrals: Yumiko Tyler NP [Primary Care Provider] - 2 days HPI General Date/Time Provider Initiated Documentation: 11/09/23 16:13. HPI Narrative: This 53-year-old female with history of breast cancer presents with report of chest heaviness, nausea, dehydration, and fatigue. Diagnosed with COVID-19 on Monday per patient. Has not taken Paxlovid. Reports fevers at home, 100.9 taking antipyretics. Denies any shortness of breath or calf pain or swelling. Denies prior history of coagulopathy. Denies any vomiting or diarrhea. Denies known sick contacts. Related Data Home Medications ?Medication ?Instructions ?Recorded ?Confirmed cyclobenzaprine 5 mg tablet 5 mg PO TID PRN back pain #30 tabs 06/26/23 11/09/23 magnesium 250 mg tablet 250 mg PO DAILY #10 tabs 11/09/23 prochlorperazine maleate 10 mg 10 mg PO Q6H PRN #10 tabs 11/09/23 tablet (Compazine) Previous Rx's ?Medication ?Instructions ?Recorded cyclobenzaprine 5 mg tablet 5 mg PO TID PRN back pain #30 tabs 06/26/23 magnesium 250 mg tablet 250 mg PO DAILY #10 tabs 11/09/23 prochlorperazine maleate 10 mg 10 mg PO Q6H PRN #10 tabs 11/09/23 tablet (Compazine) Allergies Allergy/AdvReac Type Severity Reaction Status Date / Time azithromycin Allergy Severe Hives Verified 11/09/23 16:16 chlorhexidine Allergy Intermediate hives, itch Verified 11/09/23 16:16 erythromycin lactobionate Allergy Intermediate Hives Verified 11/09/23 16:16 (From Erythrocin) General Stated Complaint: RespSymp ELIEL: 3 Exam Narrative Exam Narrative: Alert and oriented, tired of healing 53-year-old female with no respiratory distress, lungs clear to auscultation, cardiac rate rhythm regular, alert and oriented x 4, no peripheral edema, no calf swelling or tenderness, distal pulses intact Course Vital Signs Vital signs: Vital Signs Temperature 36.2 C L 11/09/23 16:12 Pulse 98 H 11/09/23 16:12 Respiratory Rate 20 11/09/23 16:12 Blood Pressure 157/97 H 11/09/23 16:12 Pulse Oximetry 99 11/09/23 16:12 Temperature 36.2 C L 11/09/23 17:10 Temperature Source Skin 11/09/23 17:10 Pulse 75 11/09/23 17:45 Pulse 76 11/09/23 17:45 Respiratory Rate 15 11/09/23 17:45 Respiratory Effort Normal, Non-Labored 11/09/23 17:10 Respiratory Depth Normal 11/09/23 17:10 Blood Pressure 127/80 11/09/23 17:45 Blood Pressure Mean 95 11/09/23 17:45 Blood Pressure Position Supine 11/09/23 17:10 Pulse Oximetry 97 11/09/23 17:45 Oxygen Delivery Method Room Air 11/09/23 17:10 Oxygen Flow Rate 0 11/09/23 17:10 Pain Level 7 11/09/23 17:10 Lab/Test Results Lab/Test Results: Laboratory Tests Range/Units 11/09/23 11/09/23 11/09/23 16:49 17:07 17:24 WBC Cancelled 4.71 RBC Cancelled 4.53 Hgb Cancelled 14.2 Hct Cancelled 42.6 MCV Cancelled 94 MCH Cancelled 31.3 MCHC Cancelled 33.3 RDW Cancelled 12.1 Plt Count Cancelled 143 MPV Cancelled 10.8 Immature Gran % Cancelled 0.2 Neutrophils % Cancelled 75.2 Band Neutrophils % Cancelled Lymphocytes % Cancelled 14.9 Atypical Lymphs % Cancelled Monocytes % Cancelled 7.0 Eosinophils % Cancelled 2.3 Basophils % Cancelled 0.4 Metamyelocytes % Cancelled Myelocytes % Cancelled Promyelocytes % Cancelled Other Cells % Cancelled Nucleated RBC % Cancelled 0.0 Absolute Neutrophils Cancelled 3.54 Absolute Lymphocytes Cancelled 0.70 L Absolute Monocytes Cancelled 0.33 Absolute Eosinophils Cancelled 0.11 Absolute Basophils Cancelled 0.02 RBC Morphology Cancelled Polychromasia Cancelled Hypochromasia Cancelled Poikilocytosis Cancelled Basophilic Stippling Cancelled Anisocytosis Cancelled Microcytosis Cancelled Macrocytosis Cancelled Spherocytes Cancelled Tear Drop Cells Cancelled Ovalocytes Cancelled Stomatocytes Cancelled [place] Bodies Cancelled [place] Cells/Echinocytes Cancelled Acanthocytes (Spur) Cancelled Schistocytes Cancelled Sodium Cancelled 141 Potassium Cancelled 4.0 Chloride Cancelled 105 Carbon Dioxide Cancelled 26.3 Anion Gap Cancelled 9.7 BUN Cancelled 16 Creatinine Cancelled 0.5 L Est GFR (CKD-EPI 2020) Cancelled 112.78 Glucose Cancelled 85 Calcium Cancelled 9.0 Magnesium Cancelled 1.5 L Total Bilirubin Cancelled 0.42 AST Cancelled 13 L ALT Cancelled 17 Alkaline Phosphatase Cancelled 89 Troponin I Cancelled < 50 Total Protein Cancelled 6.6 Albumin Cancelled 3.4 Medical Decision Making 53-year-old female COVID-19 positive presenting with feelings of dehydration, nausea, and persistent fevers. Patient is afebrile and nontoxic although appears to feel unwell here. Tolerated 2 L of NS well, given ibuprofen and Tylenol. Chest x-ray without evidence of infiltrate. Magnesium low at 1.5, this was supplemented with 800 mg of mag and patient was given magnesium supplementation for home and antiemetics as needed. Antiviral was supplied after discussion with patient regarding risk benefit as she is still in the 5-day jd range. Recheck in the outpatient setting recommended, regular fluids recommended. Return precautions reviewed and patient expressed understanding Quality:SDOH Health Related Social Needs: No Data to Display PFSH All Active Problems (Updated 11/09/23 @ 18:17 by BRITNEY Chaves) COVID-19 (Acute) Bilateral hip pain (Acute) Osteoarthritis (Chronic) Overactive bladder (Acute) Migraine (Chronic) DANTE III (cervical intraepithelial neoplasia III) (Acute 12/01/15) Hx of breast cancer (Chronic 01/22/13) 01/2005. L breast T2N0M0. Infiltrating ductal carcinoma. s/p chemo and XRT. 07/2007. T1N0M0. Adjuvant chemo. 10/2008.Bilateral prophylactic mastectomy. Staged breast reconstruction Neg BRCA-1,2. ANGELA neg. High risk HPV infection (Acute 10/13/15) LGSIL on Pap smear of cervix (Acute 11/16/15) Moderate dysplasia of cervix (DANTE II) (Acute 12/01/15) Chemotherapy-induced peripheral neuropathy (Chronic) last dose +10 years ago Bilateral carpal tunnel syndrome (Acute) Cubital tunnel syndrome on right (Acute) ÁNGEL (obstructive sleep apnea) (Chronic) Achilles tendinitis, right leg (Acute) s/p open debridement of calcaneal bone spurs and calcific achilles tendinitis with joaquin resection and achilles repair DOS 10/06/2020. Joaquin's deformity of right heel (Acute) s/p open debridement of calcaneal bone spurs and calcific achilles tendinitis with joaquin resection and achilles repair DOS 10/06/2020. Nonsustained ventricular tachycardia (Acute) Intermittent palpitations (Acute) Exertional dyspnea (Acute) Paresthesias (Acute) Peripheral neuropathy (Acute) H/O abnormal cervical Papanicolaou smear (Acute) GERD (gastroesophageal reflux disease) (Chronic) Low back pain (Acute) Anxiety about health (Acute) Tinnitus of both ears (Acute) Hyperacusis of both ears (Acute) Urinary frequency (Acute) Cold intolerance (Acute) Urge incontinence (Acute) Medical History (Updated 11/09/23 @ 18:17 by BRITNEY Chaves) History of postoperative nausea COVID-19 (~10/25/21) Increased body mass index (BMI) Abdominal pain, RLQ Right flank pain Esotropia Menopause Duodenal ulcer Shoulder joint pain Pruritus Knee joint pain Arm paresthesia, left Hyperlipidemia Chest pain Pt. states she had this fully worked up, it was not chest pain, but she was dehydrated. Generalized pruritus Dysphagia Jaw pain Headache Gastritis Sleep apnea Pancreatitis Surgical History History of lumpectomy of right breast History of reversal of tubal ligation History of lumpectomy of left breast History of bunionectomy H/O tubal ligation Hx of Achilles tendon repair breast reconstruction Breast, Mastectomy Bilateral Family History Father Hypothyroidism Hyperlipidemia CAD (coronary artery disease) Depression COPD (chronic obstructive pulmonary disease) Mother Hypothyroidism Goiter Memory impairment Sister , 54 Breast cancer Sister Depression Sister Depression Hypothyroidism Daughter No problems noted. 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 Pets and animals: Yes Pets and animals: dog(s) Sexually active: Yes Do you think of yourself as: straight/heterosexual Current gender identity: female What is your relationship status?: living with partner How often do you talk on the phone with friends or family?: three or more times per week How often do you get together with friends or relatives?: three or more times per week How often do you attend uatsdin or caodaism services?: 4 or more times per year Do you belong to any clubs or organized social groups?: yes Panel score (0-1 are the most socially isolated patients): 4 What type of physical activity do you participate in: none Frequency: other Details: occasionally, due to fatigue. Diana/Baptism: Orthodox Special diana needs: No Seatbelt use: always Helmet use: Yes Helmet use: always Drive intox or ride w/intox spike driver: No Do you feel safe at home: Yes Do you feel safe in your relationship?: Yes
[2023-11-09] MEDS: Magnesium Oxide 400 MG TAB 800 MG PO (18:18)
[2023-11-09] MEDS: Prochlorperazine 10 MG TAB PO (19:15)
== END 2023-11-09 19:19 | disposition home or self-care (01) ==
PROVIDERS: Emergency Provider Physician Assistant; PCP Nurse Practitioner Family
DX: U07.1 COVID-19 (principal)
CPT/HCPCS: 36415; 80053; 93005; 96361; 96365; 96375; 99284; 71046; 83735; 84484; 85025; 93010; J0131; J2405

== ENCOUNTER 2024-01-19 15:20 | Emergency (ER) | payer MEDICAID, SELFPAY ==
[2024-01-19 15:35] VITALS: BP 142/90; PULSE 92; RESP 12; TEMP 36.3; O2SAT 98
--- NOTE | 2024-01-19 15:45 | DI.CT_ITS ---
Exam(s) CT HEAD CERVICAL SPINE WO EXAM: CT HEAD CERVICAL SPINE WO CLINICAL HISTORY: Fall, Head Injury. TECHNIQUE: Imaging Protocol: Axial computed tomography images with coronal and sagittal reformatted images were created and reviewed COMPARISON: CT FACIAL WITHOUT CONTRAST from 12/16/2015 CT CERVICAL SPINE WITHOUT CONTRA from 12/16/2015 FINDINGS: CT Head: Ventricles and Extra axial spaces: Normal in size and morphology for the patient's age. Hemorrhage: None. Cerebral parenchyma: No evidence of an acute territorial infarct or mass effect. Midline shift: None. Brainstem/Cerebellum: Normal. Calvarium: Normal. Visualized Paranasal sinuses/Mastoids: Clear. Soft Tissues: Unremarkable. CT Cervical Spine: Bones: No acute fracture or subluxation. Age-appropriate mild degenerative changes are present. Soft Tissues: Unremarkable. Lung Apices: Clear. IMPRESSION: 1. No acute intracranial process. 2. No acute fracture or subluxation in the cervical spine. RADIATION DOSE DELIVERED: 1,212.88mGy.cm Total DLP DATA REPOSITORY: All CT scans at this facility are submitted to the National Radiology Data Registry (NRDR) Dose Index Registry (DIR) with the [employer] (ACR). RADIATION OPTIMIZATION: All CT scans at this facility use at least one of these dose optimization te chniques: automated exposure control; mA and/or kV adjustment per patient size (includes targeted exa ms where dose is matched to clinical indication); or iterative reconstruction.
--- NOTE | 2024-01-19 15:56 | W.ED.GENAD ---
Discharge Plan Disposition Patient Disposition: Home Condition: Stable Discharge Details Clinical Impression: Closed head injury without concussion, Acute cervical myofascial strain Primary Care Provider: Yumiko Tyler ED Provider: Linh Gao Home Meds and New Rx's Prescriptions: No Action No Known Home Meds Discharge Instructions Instructions: Head injury in adults, Cervical Sprain ED Additional Instructions: CT of the head and neck are within normal limits. Please take the muscle relaxers as directed as needed for muscle spasm. Alternate ice and heat. Please take Tylenol or Ibuprofen with food every 4-6 hours as needed for pain and swelling. Return to the ER for any worsening pain, confusion, nausea vomiting, blurry vision, weakness on one side your body, vomiting blood or any concerns. Follow up with primary care provider in 3-5 days. Return to ED sooner if any worsening or concerns. Referrals: Yumiko Tyler, [employer] [Primary Care Provider] - Return if symptoms worsen Discharge Data Discharge Date/Time-TO BE ENTERED AT DEPARTURE: 01/19/24 17:49 HPI General Mode of arrival: wheelchair. Date/Time Provider Initiated Documentation: 01/19/24 15:35. Limitations to Documentation: no limitations. Information obtained by: patient, RN notes reviewed and old records reviewed. HPI Narrative: 53 year old female presents after a mechanical fall, where she tripped while holding a heavy box while in a department store falling face first into glass doors. Doors did not break, no LOC, c/o neck pain, low back pain and left hand numbness. Occurred approx 1.5 hours ago. Denies linda blood thinners or aspirin, denies any lower extremity or pelvic pain. No other associated symptoms or concerns. Related Data Home Medications ?Medication ?Instructions ?Recorded ?Confirmed Unknown [No Known Home Meds] 01/19/24 01/19/24 Allergies Allergy/AdvReac Type Severity Reaction Status Date / Time azithromycin Allergy Severe Hives Verified 01/19/24 15:42 chlorhexidine Allergy Intermediate hives, itch Verified 01/19/24 15:42 erythromycin lactobionate Allergy Intermediate Hives Verified 01/19/24 15:42 (From Erythrocin) General Stated Complaint: GenMedical ELIEL: 2 Review of Systems ENT Ears, Nose, Mouth, and Throat: Reports neck pain Musculoskeletal Musculoskeletal: Reports as per HPI, Reports back pain, Reports neck pain, Reports numbness and Reports radiating pain into limb Neurologic Neurologic: Reports numbness Exam Narrative Exam Narrative: General: Well Developed, Awake and Alert, conversant. Skin: Warm and Dry HEENT: Head: No palpable deformities, Normocephalic Eyes: Pupils PERRLA, EOM's intact. No periorbital eccymosis or step off Ears: Canal patent. Tympanic membranes are clear . No zamudio's sign, no hemptympanum. Nose/Face: Atraumatic. Facial bones nontender to palpation and stable with manipulation. Mouth/Throat: No intraoral trauma. Teeth and mandible are intact. Neck: No midline tenderness, no step off, no deformity to palpation of C-spine. Trachea midline. Patient in c-collar. Chest: No surface trauma. Nontender without crepitus or deformity. Lungs clear to ausculatation bilaterally. Heart: RRR, no rubs, murmurs or gallop. Abdomen: No abrasions, ecchymosis, or surface trauma. Nondistended. Nontender to palpation no guarding, rebound, or rigidity. Pelvis: Nontender to palpation and stable to compression. Femoral pulses strong and equal Extremities: no surface trauma. Sensation intact. Peripheral pulses intact and equal. Neuro: ANO x4, GCS 15, cranial nerves II through XII intact. Motor and sensory exam nonfocal. Reflexes are symmetric. Course Vital Signs Vital signs: Vital Signs Temperature 36.3 C L 01/19/24 15:35 Pulse 92 H 01/19/24 15:35 Respiratory Rate 12 01/19/24 15:35 Blood Pressure 142/90 H 01/19/24 15:35 Pulse Oximetry 98 01/19/24 15:35 Temperature 36.3 C L 01/19/24 15:35 Temperature Source Skin 01/19/24 15:35 Pulse 92 H 01/19/24 15:35 Respiratory Rate 12 01/19/24 15:35 Blood Pressure 142/90 H 01/19/24 15:35 Blood Pressure Position Sitting 01/19/24 15:35 Pulse Oximetry 98 01/19/24 15:35 Oxygen Delivery Method Room Air 01/19/24 15:35 Oxygen Flow Rate 0 01/19/24 15:35 Pain Level 5 01/19/24 15:35 Medical Decision Making 53 year old female presents after a mechanical fall, where she tripped while holding a heavy box while in a department store falling face first into glass doors. Doors did not break, no LOC, c/o neck pain, low back pain and left hand numbness. Occurred approx 1.5 hours ago. Denies linda blood thinners or aspirin, denies any lower extremity or pelvic pain. No other associated symptoms or concerns. CT head and C-spine ordered, 1 gm Tylenol C-collar removed by staff physical therapy assistant, CT head and C-spine shows no CVA, no abnormality, some age-appropriate mild degenerative changes in the C-spine. No acute intracranial process. Will send home with closed head injury instructions and Flexeril. Will discuss strict return instructions and home care. This text was generated using NaHereation system, please disregard any oddities of phrase or misspellings. Quality:SDOH Health Related Social Needs: No Data to Display PFSH All Active Problems (Updated 01/19/24 @ 17:29 by Linh Gao NP) Acute cervical myofascial strain (Acute) Closed head injury without concussion (Acute) COVID-19 (Acute) Bilateral hip pain (Acute) Osteoarthritis (Chronic) Overactive bladder (Acute) Migraine (Chronic) DANTE III (cervical intraepithelial neoplasia III) (Acute 12/01/15) Hx of breast cancer (Chronic 01/22/13) 01/2005. L breast T2N0M0. Infiltrating ductal carcinoma. s/p chemo and XRT. 07/2007. T1N0M0. Adjuvant chemo. 10/2008.Bilateral prophylactic mastectomy. Staged breast reconstruction Neg BRCA-1,2. ANGELA neg. High risk HPV infection (Acute 10/13/15) LGSIL on Pap smear of cervix (Acute 11/16/15) Moderate dysplasia of cervix (DANTE II) (Acute 12/01/15) Chemotherapy-induced peripheral neuropathy (Chronic) last dose +10 years ago Bilateral carpal tunnel syndrome (Acute) Cubital tunnel syndrome on right (Acute) ÁNGEL (obstructive sleep apnea) (Chronic) Achilles tendinitis, right leg (Acute) s/p open debridement of calcaneal bone spurs and calcific achilles tendinitis with joaquin resection and achilles repair DOS 10/06/2020. Joaquin's deformity of right heel (Acute) s/p open debridement of calcaneal bone spurs and calcific achilles tendinitis with joaquin resection and achilles repair DOS 10/06/2020. Nonsustained ventricular tachycardia (Acute) Intermittent palpitations (Acute) Exertional dyspnea (Acute) Paresthesias (Acute) Peripheral neuropathy (Acute) H/O abnormal cervical Papanicolaou smear (Acute) GERD (gastroesophageal reflux disease) (Chronic) Low back pain (Acute) Anxiety about health (Acute) Tinnitus of both ears (Acute) Hyperacusis of both ears (Acute) Urinary frequency (Acute) Cold intolerance (Acute) Urge incontinence (Acute) Medical History History of postoperative nausea COVID-19 (~10/25/21) Increased body mass index (BMI) Abdominal pain, RLQ Right flank pain Esotropia Menopause Duodenal ulcer Shoulder joint pain Pruritus Knee joint pain Arm paresthesia, left Hyperlipidemia Chest pain Pt. states she had this fully worked up, it was not chest pain, but she was dehydrated. Generalized pruritus Dysphagia Jaw pain Headache Gastritis Sleep apnea Pancreatitis Surgical History History of lumpectomy of right breast History of reversal of tubal ligation History of lumpectomy of left breast History of bunionectomy H/O tubal ligation Hx of Achilles tendon repair breast reconstruction Breast, Mastectomy Bilateral Family History Father Hypothyroidism Hyperlipidemia CAD (coronary artery disease) Depression COPD (chronic obstructive pulmonary disease) Mother Hypothyroidism Goiter Memory impairment Sister , 54 Breast cancer Sister Depression Sister Depression Hypothyroidism Daughter No problems noted. 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 Pets and animals: Yes Pets and animals: dog(s) Sexually active: Yes Do you think of yourself as: straight/heterosexual Current gender identity: female What is your relationship status?: living with partner How often do you talk on the phone with friends or family?: three or more times per week How often do you get together with friends or relatives?: three or more times per week How often do you attend religious or advent services?: 4 or more times per year Do you belong to any clubs or organized social groups?: yes Panel score (0-1 are the most socially isolated patients): 4 What type of physical activity do you participate in: none Frequency: other Details: occasionally, due to fatigue. Diana/Baptism: Mormon Special diana needs: No Seatbelt use: always Helmet use: Yes Helmet use: always Drive intox or ride w/intox delivery driver assistant: No Do you feel safe at home: Yes Do you feel safe in your relationship?: Yes
[2024-01-19 16:24] VITALS: BP 142/90; PULSE 92; RESP 12; TEMP 36.3; O2SAT 98
[2024-01-19] MEDS: Acetaminophen 500 MG TAB 1000 MG PO (16:46)
[2024-01-19 17:35] VITALS: BP 120/74; PULSE 73; RESP 16; O2SAT 98
[2024-01-19] MEDS: Cyclobenzaprine 10 MG TAB, 3 TABS/BTL PO (17:35)
--- OUTSIDE RECORDS SUMMARY | 2024-01-19 17:57 | XMS_ITS | Encounter Summary ---
Author Organization [facility] [place] [address] Care Team Providers Care Die Cast Technician Name Role Phone Marlon Levine MD Primary Care Provider [phone] Reason for Visit * Reason Onset Date Comments Labs Only 06/09/2017 Report today lab s Encounter Details Date Type Department Care Team (Late st Contact Info) Description 06/09/2017 Telephone Hematology/Oncology at [address] [id number] Mary Alice Naidu RN Labs [...] on filedocumented in this encounter Care Teams Die Cast Technician Relationship Specialty Start Date End Date Marlon Levine MD [address] [place] [address] PCP - General 06/20/12 documented as of this encounter
--- OUTSIDE RECORDS SUMMARY | 2024-01-19 17:57 | XMS_ITS | Encounter Summary ---
Author Organization [facility] [place] [address] Care Team Providers Care Surface Plate Finisher Name Role Phone Marlon Levine MD Primary Care Provider [phone] Encounter Details Date Type Department Care Team (Latest Contact Info) Description 06/13/2017 - 06/13/2017 11:59 PM EDT Hospital Encounter Radiology Library at [facility] [place] [place] [address] Ingrid Delacruz, [employer] [address] [facility] [place] [address] Discharge Disposition: Home Social History Tobacco Use [...] nuclear medicine (06/13/2017 12:00 AM EDT) Narrative [facility] - 06/14/2017 10:54 AM EDT This exam is for storage only and is auto-finalizing. Ingrid Delacruz APRN IMG FILM LIBRARY ORD ERABLES Performing Organization Address City/State/[facility] Co de Phone Number [place], [place] documented in this encounter Visit Diagnoses Not on filedocumented in this encounter Care Teams Surface Plate Finisher Relationship Specialty Start Date End Date Marlon Levine MD [address] [place] [address] PCP - General 06/20/12 documented as of this encounter
--- OUTSIDE RECORDS SUMMARY | 2024-01-19 17:57 | XMS_ITS | Clinical Summary ---
[facility] Address [facility] [place] [address] Care Team Providers Care Patient Advocate Name Role Phone Marlon Levine MD Primary Care Provider + [phone] Allergies Active Allergy Reactions Criticality Noted Date [...] Next Due Influenza Vaccine, Whole 01/22/2009,02/21/2006 Pneumococcal 23-Valent Polysaccharide (Pneumovax 23) 01/22/2009 Family History Medical History Relation Comments Heart [...] B vaccine (0-59 yr s) (1) 08/29/1990 Tetanus/Diphtheria/Pertussis Vaccines (1 - Tdap) 08/29/1990 Breast Cancer Share Decision Needed 2011 Breast Cancer screening 2011 HPV test 07/26/2021 07/26/2016 PAP Smear 07/26/2021 07/26/2016 Zoster vaccine (1 of 2) 08/29/2021 Covid-19 Vaccine ( - 2022-2 4 season) 2023 Influenza (Flu) vaccine (1 o f 1 - Influenza standard series) 11/26/2023 01/22/2009, 02/21/2006 Diabetes Screening (HgbA1C o r Glucose) Discontinued 06/13/2013, 04/29/2011, 04/28/2011, Additional history exists Procedures Procedure Name Priority Date/Time Associated Diagnosis Comments HPV Routine 07/26/2016 11:55 AM EDT [employer] CYTOLOGY FINAL REPORT Routine 07/26/2016 11:55 AM EDT GLUCOSE STAT 06/13/2013 7:30 PM EDT from Last 3 Months or Most Recently Relevant to Health Maintenance Results * (ABNORMAL) HPV (07/26/2016 11:55 AM EDT) HPV16 NEGATIVE NEGATIVE [facility] HPV 18 NEGATIVE NEGATIVE [facility] HPV Other HR POSITIVE(A) NEGATIVE [facility] HPV Interpretation See Comment [facility] Comment: POSITIVE for high-risk HPV* (High [...] Lab Valentina Moore MD PATHOLOGY/CYTOLOGY O RDERABLES [facility] [place] [address] * Sausage Smoker Cytology Final Report (07/26/2016 11:55 AM EDT) Sausage Smoker Cytology Final Report [id number] ?Location: 5L The signing pathologist has (i) [...] Clinical Genomics and Advanced Technology (CGAT) at [facility]. ? - John Jolley, PhD, [facility]LY [facility], [facility], Director-[place] _ Electronically signed by: ??Lab Review, Molecular Genetics Verified: ??08/12/2016 ? Sausage Smoker Final DIAGNOSIS Epithelial Cell Abnormality Atypical Squamous [...] I.U.D.?: ? No Pelvic Radiation: ?No Prior [employer] Therapy?: ?Cone Biopsy . CLINICAL INFORMATION Hist Abnl Pap/Biopsy?: ?? Yes, Pap after Cryo, LEEP Hist of HPV Vaccine?: ?No Hist of Smoking?: ?No Hist of PADMINI exposure?: ?? No ICD Diagnosis: ? Z91.89 Screening Pap, History Clinical High Risk Clinical Data, Significant Therapy and Clinical Impression ?? : ?_ This Pap Test has been evaluated with the assistance of the ThinPrep Pap Test Imaging System. Note: The Pap test is a screening test for cervical cancer with an inherent false-negative rate dependent upon several variables. ??For further information please contact the [facility] Laboratory. Reference: ??Roger LADD. ??Laser Set Up Operator of Pap Smear Results. ??In: ??Aureliano BS, [place] HH, ed. ??The Pap Smear. ??[place]: ??Edilberto, 2002: ??71-77. [facility] 07/26/2016 11:5 5 AM EDT Valentina Moore MD PATHOLOGY/CYTOLOGY Miguel MANCUSO [facility] [place] [address] * Glucose, random (06/13/2013 7:30 PM EDT) Glucose 74 60 - 199 mg/dL [facility] Comment:Diabetes: >=200 mg/d L plus symptoms Blood specimen (specimen) 06/13/2013 7:30 PM EDT 06/13/2013 7:38 PM EDT Narrative Resulting Agency Comment Spec In Lab Wicho Pizano MD CHEMISTRY ORDERABLES [facility] from Last 3 Months or Most Recently Relevant to Health Maintenance Advance Directives * Full Code (Latest Code Status on File) Date Activated Date Inactivated Comments 04/27/2011 6:02 PM 04/30/2011 5:15 PM Question Answer Comments Order Status: Initial Order Does patient have decision m aking capacity? Yes, Order is based on Patients wishes. Care Teams Patient Advocate Relationship Specialty Start Date End Date Marlon Levine MD [address] [place] [address] PCP - General 06/20/12
--- OUTSIDE RECORDS SUMMARY | 2024-01-19 17:57 | XMS_ITS | Encounter Summary ---
Author Organization [facility] Address [facility] [place] [address] Care Team Providers Care Business Travel Consultant Name Role Phone Marlon Levine MD Primary Care Provider [phone] Encounter Details Date Type Department Care Team (Late st Contact Info) Description 07/26/2018 8:45 AM EDT Office Visit Hematology/Oncology at [address] [phone] Celeste Le APRN [facility] [place] [address] Malignant neoplasm of female breast, unspecified estrogen [...] negative. Ten LNs were seen, all negative. ER/LA negative. HER2/cynthia negative. B. Four cycles of [...] There was no ALI or perineural invasion. ER/LA negative. HER2/cynthia negative by FISH. B. In [...] breast cancer and unfortunately in 01/08 in [place]. She has another sister who had a [...] breast cancer history and now her recent VP PURCHASING history, she was evaluated and followed at [facility] and have given her a referral to Valentina Moore MD. I encouraged a yearly visit with her PCP last year however this year asks if she needs to see one for more than PRN illness issues- I told herthat an annual exam and basic labs of CBC and CMP are recommended yearly along with her VP PURCHASING fwup. Her daughter has not yet started [...] she has a sister who lived in [place] and unfortunately of stage IV breast cancer [...] breast documented in this encounter Care Teams Business Travel Consultant Relationship Specialty Start Date End Date Marlon Levine MD [address] [place] [address] PCP - General 06/20/12 documented as of this encounter
--- OUTSIDE RECORDS SUMMARY | 2024-01-19 17:57 | XMS_ITS | Encounter Summary ---
Author Organization [facility] [place] [address] Care Team Providers Care Engagement Manager Name Role Phone Marlon Levine MD Primary Care Provider [phone] Encounter Details Date Type Department Care Team (Late st Contact Info) Description 06/15/2017 2:15 PM EDT Office Visit Hematology/Oncology at [address] [phone] Ingrid Delacruz, DYE HOUSE SUPERVISOR [address] [facility] [place] [address] Malignant neoplasm of female breast, unspecified estrogen [...] this encounter Progress Notes * Ingrid Delacruz, DYE HOUSE SUPERVISOR - 06/15/2017 2:15 PM EDT Subjective: Patient ID: Antonia Jennings is a 46 y.o. female. Problem List: 1. Cancer of the left breast, T2, N0, M0. A. Dx'd 01/29, s/p lumpectomy and ALND. Path-2.5-cm infiltrating ductal carcinoma, SBR score of 8. Final margins of resection were negative. Ten LNs were seen, all negative. ER/DC negative. HER2/cynthia negative. B. Four cycles of [...] There was no ALI or perineural invasion. ER/DC negative. HER2/cynthia negative by FISH. B. In [...] breast cancer and unfortunately in 01/08 in [place]. 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 I encouraged a yearly visit with her PCP last year however this year asks if she needs to see one for more than PRN illness issues- I toldher that an annual exam and basic labs of CBC and CMP are recommended yearly along with her [facility] [facility] TECHNICIAN fwup. Her daughter has not yet started [...] she has a sister who lived in [place] and unfortunately of stage IV breast cancer [...] or by age 31. Ingrid Delacruz, MSN, PRODUCT APPLICATIONS SCIENTIST, AOCN Hematology/Oncology Nurse Practitioner [place], [place] [phone] Medical Oncology follow-up is based on ASCO [...] breast documented in this encounter Care Teams Engagement Manager Relationship Specialty Start Date End Date Marlon Levine MD [address] [place] [address] PCP - General 06/20/12 documented as of this encounter
--- OUTSIDE RECORDS SUMMARY | 2024-01-19 17:57 | XMS_ITS | Encounter Summary ---
Author Organization [facility] [place] [address] Care Team Providers Care Disc Pad Grinder Name Role Phone Marlon Levine MD Primary Care Provider [phone] Reason for Visit * Reason Onset Date Comments Other 05/07/2020 Encounter Details Date Type Department Care Team (Late st Contact Info) Description 05/07/2020 Telephone Hematology/Oncology at [address] [phone] Ary Felix RN Other Social [...] filedocumented in this encounter Care Teams Disc Pad Grinder Relationship Specialty Start Date End Date Marlon Levine MD [address] [place] [address] PCP - General 06/20/12 documented as of this encounter
--- OUTSIDE RECORDS SUMMARY | 2024-01-19 17:58 | XMS_ITS | Encounter Summary ---
Author Organization [facility] [place] [address] Care Team Providers Care Hedge Trimmer Name Role Phone Marlon Levine MD Primary Care Provider + [phone] Reason for Visit * Reason Onset Date Comments Other 11/20/2012 breast changes Encounter Details Date Type Department Care Team (Late st Contact Info) Description 11/20/2012 Telephone Hematology Oncology at [address] [phone] Cyndy Falcon, RN Other (breast [...] on filedocumented in this encounter Care Teams Hedge Trimmer Relationship Specialty Start Date End Date Marlon Levine MD [address] [place] [address] PCP - General 06/20/12 documented as of this encounter
--- OUTSIDE RECORDS SUMMARY | 2024-01-19 17:58 | XMS_ITS | Encounter Summary ---
Author Organization [facility] Address [facility] [place] [address] Care Team Providers Care Leaf Sucker Operator Name Role Phone Marlon Levine MD Primary Care Provider [phone] Reason for Visit * Reason Comments Colposcopy Encounter Details Date Type Department Care Team (Latest Contact Info) Description 08/23/2016 9:30 AM EDT Procedure visit Obstetrics [place] [phone] Valentina Moore MD [facility] DR OBSTETRICS [place] [address] Cervical dysplasia Social History Tobacco Use Types [...] HSIL, will repeat pap in 6 months. Vlaentina Moore MD documented in this encounter Plan of Treatment Not on file documented as of this encounter Procedures Procedure Name Priority Date/Time Associated Diagnosis Comments SPECIMEN TO PATHOLOGY (NON-OR) Routine 08/23/2016 9:54 AM EDT Cervical dysplasia SURGICAL PATHOLOGY REPORT Routine 08/23/2016 9:54 AM EDT documented in this encounter Results * Surgical Pathology Report (08/23/2016 9:54 AM EDT) Final Diagnosis [id number] ?Location: 5L The signing pathologist has (i) [...] ing: (T1) ??nurys 08/25/2016 11:04 AM EDT [facility] ENDOCERVICAL STRUCTURE / Unknown 08/23/2016 9:54 AM EDT 08/23/2016 9:54 AM EDT Valentina Moore MD PATHOLOGY/CYTOLOGY O RDERABLES [facility] [place] [address] * Specimen to Pathology (NON-OR) (08/23/2016 9:54 AM EDT) AP Specimen 08/23/2016 9:54 AM EDT 08/23/2016 9:54 AM EDT Narrative [facility] - 08/23/2016 9:54 AM EDT Specimen requisition ordered. ??Separate Pathology report to follow Valentina Moore MD PATHOLOGY/CYTOLOGY O BARTOLOME [facility] [place] [address] documented in this encounter Visit Diagnoses Diagnosis Cervical dysplasia Dysplasia of cervix, unspecified documented in this encounter Care Teams Leaf Sucker Operator Relationship Specialty Start Date End Date Marlon Levine MD [address] [place] [address] PCP - General 06/20/12 documented as of this encounter
--- OUTSIDE RECORDS SUMMARY | 2024-01-19 17:58 | XMS_ITS | Encounter Summary ---
Author Organization [facility] [place] [address] Care Team Providers Care Biotechnician Name Role Phone Marlon Levine MD Primary Care Provider + [phone] Encounter Details Date Type Department Care Team (Late st Contact Info) Description 04/30/2012 Telephone [place] [phone] Ana Lilia Soria APRN [facility] [place] [address] Social History Tobacco Use Types Packs/Day Years [...] on filedocumented in this encounter Care Teams Biotechnician Relationship Specialty Start Date End Date Marlon Levine MD [address] [place] [address] PCP - General 02/16/10 06/19/12 documented as of this encounter
--- OUTSIDE RECORDS SUMMARY | 2024-01-19 17:58 | XMS_ITS | Encounter Summary ---
Author Organization [facility] [place] [address] Care Team Providers Care Helicopter Mechanic Name Role Phone Marlon Levine MD Primary Care Provider + [phone] Encounter Details Date Type Department Care Team (Late st Contact Info) Description 06/24/2013 Telephone [place] [phone] Elena Graham, RN Social History Tobacco Use [...] on filedocumented in this encounter Care Teams Helicopter Mechanic Relationship Specialty Start Date End Date Marlon Levine MD [address] [place] [address] PCP - General 06/20/12 documented as of this encounter
--- OUTSIDE RECORDS SUMMARY | 2024-01-19 17:58 | XMS_ITS | Encounter Summary ---
Author Organization [facility] Address [facility] [place] [address] Care Team Providers Care Information Consultant Name Role Phone Marlon Levine MD Primary Care Provider [phone] Reason for Referral * Consultation (Routine) - Complete-Ref Provider Notified Specialty Diagnoses / Procedures Referred By Mateo sims Referred To Contact Ophthalmology Diagnoses Esotropia Erick Marx MD [facility] [place] [address] Maria C Gomez MD [facility] [place] [address] Referral ID Status Reason Start Date Expiration Date Visits Requested Visits Authorized [id number] Complete-Ref Provider Notified Consult, Test & Treat 08/09/2012 02/05/2013 1 1 Encounter Details Date Type Department Care Team (Late st Contact Info) Description 08/09/2012 12:45 PM EDT Office [place] [address] Erick Marx MD [facility] [place] [address] Migraine (Primary Dx); Esotropia Discharge Disposition: Home [...] notice that really until she saw an contact center manager locally for headaches, and she was noted [...] 6 hours as needed. Allergies: Entered into [employer]. Allergies Allergen Reactions ??? Adhesive Tape Rash [...] get a sleep evaluation next week at [facility]. Otherwise negative. In general, she appears in [...] 5/5 throughout. Reflexes 2/4 throughout. Coordination: Normal zcexyb-sgjr-vayeak and fayk-tsuv-lole testing. Sensory exam is intact to light touch in the upper and lower extremities as well as vibration. Gait is normal including tandem. Romberg negative. Imaging Data: See history of presenting illness regarding recent unremarkable brain MRI, although I do not have the images. Per report it is normal. It was done at [facility] on June 19. Assessment: Antonia Lance is [...] unspecified documented in this encounter Care Teams Information Consultant Relationship Specialty Start Date End Date Marlon Levine MD [address] [place] [address] PCP - General 06/20/12 documented as of this encounter
--- OUTSIDE RECORDS SUMMARY | 2024-01-19 17:58 | XMS_ITS | Encounter Summary ---
Author Organization [facility] [place] [address] Care Team Providers Care Hoop Machine Operator Name Role Phone Marlon Levine MD Primary Care Provider [phone] Encounter Details Date Type Department Care Team (Late st Contact Info) Description 07/01/2013 1:00 PM EDT - 07/01/2013 1:30 PM EDT Surgery [place] [phone] Tali Kamara MD [facility] GASTROENTER[place] [address] EGD, UPPER GI ENDOSCOPY (WRVU 2.09) Social [...] not get better as expected. Monday-Monday Clinic [phone] 8a-5p Same Day Endo [phone] 7a-8p Otherwise contact [phone] and ask to speak to the isobutylene operator chief civil engineering draftsperson Follow-up care is a [place] part [...] PM EDT 07/01/2013 2:37 PM EDT [facility] 07[facility]01/[facility] 2:37 PM EDT Specimen requisition ordered. ??Separate Pathology report to follow Tali Kamara MD PATHOLOGY/CYTOLOGY O BARTOLOME [facility] * UPPER GI ENDOSCOPY (07/01/2013 2:09 PM EDT) UPPER GI ENDOSCOPY [facility] Patient Name: Antonia Lance ? Procedure Date: 07/01/2013 2:09 PM ? N: [id number] ? Date of : 1970 ? Age: 42 ? Order #: [id number] ? Procedure: ? Upper GI endoscopy Indications: ? Epigastric abdominal pain Providers: ? Tali Kamara MD, Tari Chen MD, ? Suraj Silva, RN, Nayla Torres. ? Seymour Referring : ?Marlon Levine MD Medicines: ? [...] CRNA) documented in this encounter Care Teams Hoop Machine Operator Relationship Specialty Start Date End Date Marlon Levine MD [address] [place] [address] PCP - General 06/20/12 documented as of this encounter
--- OUTSIDE RECORDS SUMMARY | 2024-01-19 17:58 | XMS_ITS | Encounter Summary ---
Author Organization [facility] Address [facility] [place] [address] Care Team Providers Care Health Information Assistant Name Role Phone Marlon Levine MD Primary Care Provider + [phone] Reason for Visit * Reason Comments Diplopia Encounter Details Date Type Department Care Team (Late st Contact Info) Description 02/26/2013 1:00 PM EST Office [place] [address] Maria C Gomez MD [facility] [place] [address] Esotropia (Primary Dx) Discharge Disposition: Home Social [...] unspecified documented in this encounter Care Teams Health Information Assistant Relationship Specialty Start Date End Date Marlon Levine MD [address] [place] [address] PCP - General 06/20/12 documented as of this encounter
--- OUTSIDE RECORDS SUMMARY | 2024-01-19 17:58 | XMS_ITS | Encounter Summary ---
Author Organization [facility] [place] [address] Care Team Providers Care Coater Slate Name Role Phone Marlon Levine MD Primary Care Provider + [phone] Encounter Details Date Type Department Care Team (Late st Contact Info) Description 07/01/2013 Orders [place] [address] Tari Chen MD [facility] [place] [address] Social History Tobacco Use Types Packs/Day Years [...] on filedocumented in this encounter Care Teams Coater Slate Relationship Specialty Start Date End Date Marlon Levine MD [address] [place] [address] PCP - General 06/20/12 documented as of this encounter
--- OUTSIDE RECORDS SUMMARY | 2024-01-19 17:58 | XMS_ITS | Encounter Summary ---
Author Organization [facility] [place] [address] Care Team Providers Care General Maintenance Technician Name Role Phone Marlon Levine MD Primary Care Provider [phone] Reason for Referral * Consultation (Routine) - Closed Specialty Diagnoses / Procedures Referred By Mateo sims Referred To Contact Gastroenterology Diagnoses Abdominal colic Wicho Pizano MD [facility] [place] [address] [facility] [place] [address] [address] Referral ID Status Reason Start Date Expiration Date V isits Requested Visits Authorized [id number] Closed Assume Subset of Care 06/13/2013 12/10/2013 1 1 Reason for Visit * Reason Comments Abdominal Pain Encounter Details Date Type Department Care Team (Late st Contact Info) Description 06/13/2013 6:16 PM EDT - 06/13/2013 10:32 PM EDT [place] [address] Wicho Pizano MD [facility] [place] [address] Abdominal colic Discharge Disposition: Home [...] URINE DIPSTICK Component Value Range POC Sp [place] 1.025 1.002 - 1.030 POC pH, UA [...] Sample in lab. Wicho Pizano MD 06/13/13 2153 * Constance Cruz RN - 06/13/2013 6:40 [...] MD HEMATOLOGY ORDERABLE S Performing Organization Address [facility] Co de Phone Number MENDEL AVERY * Lavender Tube HOLD (06/13/2013 8:50 PM EDT) Lavender Hold Sample in lab. MENDEL AVERY Blood specimen (specimen) 06/13/2013 8:50 PM EDT 06/13/2013 9:06 PM EDT Wicho Pizano MD HEMATOLOGY ORDERABLE S Performing Organization Address City/[facility]/ZIP Co de Phone Number MENDEL AVERY * Green Tube HOLD (06/13/2013 8:50 PM EDT) Green Hold Sample in lab. MENDEL AVERY Blood specimen (specimen) 06/13/2013 8:50 PM EDT 06/13/2013 9:05 PM EDT Wicho Pizano MD CHEMISTRY ORDERABLES Performing Organization Address [facility] de Phone Number MENDEL COLLAZOIUM * Hepatic [...] Pizano MD CHEMISTRY ORDERABLES Performing Organization Address [facility] Phone Number CERJING COLLAZOIUM * Potassium (06/13/2013 [...] Pizano MD CHEMISTRY ORDERABLES Performing Organization Address [facility] Co de Phone Number CERJING REDDYENNIUM * [...] Tube HOLD (06/13/2013 7:30 PM EDT) Pathologist [facility] Gold Hold Sample in lab. MENDEL COLLAZOIUM Blood specimen (specimen) 06/13/2013 7:30 PM EDT 06/13/2013 7:40 PM EDT Wicho Pizano MD CHEMISTRY ORDERABLES Performing Organization Address [facility]/ZIP Co de Phone Number MENDEL COLLAZOIUM * Blue Tube HOLD (06/13/2013 7:30 PM EDT) Blue Hold Sample in lab. CERNER BARRYENNIUM Blood specimen (specimen) 06/13/2013 7:30 PM EDT 06/13/2013 7:40 PM EDT Wicho Pizano MD HEMATOLOGY ORDERABLE S Performing Organization Address City/[facility] Co de Phone Number MENDEL COLLAZOIUM * Lipase (06/13/2013 7:30 PM EDT) Lipase 26 0 - 60 unit/L CERNER BARRYENNIUM Blood specimen (specimen) 06/13/2013 7:30 PM EDT 06/13/2013 7:38 PM EDT Narrative Resulting Agency Comment Spec In Lab Wicho Pizano MD CHEMISTRY ORDERABLES Performing Organization Address [facility] Co de Phone Number MENDEL COLLAZOIUM * [...] Pizano MD CHEMISTRY ORDERABLES Performing Organization Address City/[facility]/ZIP Co de Phone Number [facility] [employer]IUM * Glucose, random (06/13/2013 7:30 PM EDT) Glucose 74 60 - 199 mg/dL CERNER Branded OnlineENNIUM Comment:Diabetes: >=200 mg/d L plus symptoms Blood specimen (specimen) 06/13/2013 7:30 PM EDT 06/13/2013 7:38 PM EDT Narrative Resulting Agency Comment Spec In Lab Wicho Pizano MD CHEMISTRY ORDERABLES Performing Organization Address [facility] Co de Phone Number [facility] [employer]IUM * (ABNORMAL) Creatinine (06/13/2013 7:30 PM EDT) Creatinine 0.67(L) 0.70 - 1.20 mg/dL [facility] [employer] Comment: Please note that the pediatric reference intervals supplied above were not validated at [facility]. Results from pediatric patients should be interpreted [...] Pizano MD CHEMISTRY ORDERABLES Performing Organization Address City/[facility]/ZIP Co de Phone Number CERJING REDDYENNIUM * (ABNORMAL) Electrolytes panel (06/13/2013 7:30 PM EDT) Sodium 137 135 - 145 mmol/L CERNER MILLENNIUM Potassium Not Perf 3.5 - 5.0 mmol/L CERNER MILLENNIUM Comment: Called by: [facility], Read back by: FITZ PIZANO, Date/Time:06/13/13 20:16. [...] Blood Cell 4.60 3.93 - 5.22 x10(6)/mcL [facility] Hemoglobin 14.4 11.2 - 15.7 gm/dL [facility] Hematocrit 42.9 34.0 - 45.0 % [facility] Mean Cell Volume 93.3 79.0 - 94.0 fL [facility] Mean Cell Hemoglobin 31.3 26.6 - 32.2 pg [facility] Mean Cell Hemoglobin Concentration 33.6 32.0 - 36.5 gm/dL [facility] Platelet 197 145 - 370 x10(3)/mcL [facility] RDW Standard Deviation 44.9 35.0 - 46.0 fL [facility] RDW coefficient of variation 13.1 10.9 - 14.4 % [facility] Mean Platelet Volume 10.6 9.0 - 12.0 fL [facility] Blood specimen (specimen) 06/13/2013 7:30 PM EDT 06/13/2013 7:38 PM EDT Narrative Resulting Agency Comment Spec In Lab Wicho Pizano MD HEMATOLOGY ORDERABLE S [facility] * POCT urine dipstick (06/13/2013 6:50 PM EDT) POC Sp [place] 1.025 1.002 - 1.030 POC pH, UA [...] Mora) documented in this encounter Care Teams General Maintenance Technician Relationship Specialty Start Date End Date Marlon Levine MD [address] [place] [address] PCP - General 06/20/12 documented as of this encounter
--- OUTSIDE RECORDS SUMMARY | 2024-01-19 17:58 | XMS_ITS | Encounter Summary ---
Author Organization [facility] Address [facility] [place] [address] Care Team Providers Care Washing Machine Repairer Name Role Phone Marlon Levine MD Primary Care Provider + [phone] Encounter Details Date Type Department Care Team (Late st Contact Info) Description 07/26/2016 10:00 AM EDT Office Visit Obstetrics [place] [address] Valentina Moore MD [facility] DR OBSTETRICS [place] [address] Cervical dysplasia, moderate Social History Tobacco Use [...] history is as follows: Had LEEP in [place] in 12/2015 - confirmed DANTE 2 with negative margins. No ECC done at that time. Has not had any follow-up yet. She saw Ingrid Delacruz NP in the oncology division recently, who recommended that she have a tdp displays analyst here at [facility] to make sure she is [...] ENDOSCOPIC ULTRASOUND performed by CHUCHO ZAPATA at [facility] ENDOSCOPY ??? PRO UPPER GI ENDOSCOPY, DIAGNOSTIC ?? 07/01/2013 ?? EGD, UPPER GI ENDOSCOPY performed by Tali Kamara MD at [facility] ENDOSCOPY ?? Family History Problem Relation [...] will schedule her for a routine annual mat worker visit. Will get in touch regarding results as soon as they are available. ?? Valentina Moore MD documented in this encounter Plan of Treatment Not on file documented as of this encounter Visit Diagnoses Diagnosis Cervical dysplasia, moderate Moderate dysplasia of cervix documented in this encounter Care Teams Washing Machine Repairer Relationship Specialty Start Date End Date Marlon Levine MD [address] [place] [address] PCP - General 06/20/12 documented as of this encounter
--- OUTSIDE RECORDS SUMMARY | 2024-01-19 17:58 | XMS_ITS | Encounter Summary ---
Author Organization [facility] [place] [address] Care Team Providers Care Copyright Clerk Name Role Phone Marlon Levine MD Primary Care Provider + [phone] Reason for Visit * Reason Onset Date Comments Other 01/11/2013 Encounter Details Date Type Department Care Team (Late st Contact Info) Description 01/11/2013 Telephone Hematology Oncology at [address] [phone] yCndy Falcon, RN Other Social History Tobacco Use [...] on filedocumented in this encounter Care Teams Copyright Clerk Relationship Specialty Start Date End Date Marlon Levine MD [address] [place] [address] PCP - General 06/20/12 documented as of this encounter
--- OUTSIDE RECORDS SUMMARY | 2024-01-19 17:58 | XMS_ITS | Encounter Summary ---
Author Organization [facility] [place] [address] Care Team Providers Care Informatics Developer Name Role Phone Marlon Levine MD Primary Care Provider + [phone] Encounter Details Date Type Department Care Team (Late st Contact Info) Description 04/30/2012 Telephone [place] [phone] Ana Lilia Soria APRN [facility] [place] [address] Social History Tobacco Use Types Packs/Day Years [...] on filedocumented in this encounter Care Teams Informatics Developer Relationship Specialty Start Date End Date Marlon Levine MD [address] [place] [address] PCP - General 02/16/10 06/19/12 documented as of this encounter
--- OUTSIDE RECORDS SUMMARY | 2024-01-19 17:58 | XMS_ITS | Encounter Summary ---
Author Organization [facility] Address [facility] [place] [address] Care Team Providers Care Pigskin Trimmer Name Role Phone Marlon Levine MD Primary Care Provider [phone] Encounter Details Date Type Department Care Team (Late st Contact Info) Description 09/20/2011 2:00 PM EDT Follow-Up Hematology Oncology at [address] [phone] John Beltran MD [facility] [place] [address] Breast cancer (Primary Dx) Discharge Disposition: Home [...] negative. Ten LNs were seen, all negative. ER/KS negative. HER2/cynthia negative. B. Four cycles of [...] There was no ALI or perineural invasion. ER/KS negative. HER2/cynthia negative by FISH. B. In [...] today, she feels well. 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 Her energy level is good. She does self exam of the reconstructed breasts and has not noted any areas of concern. She was recently in the ED at [facility] with abrasions on her knees and there [...] site documented in this encounter Care Teams Pigskin Trimmer Relationship Specialty Start Date End Date Marlon Levine MD [address] [place] [address] PCP - General 02/16/10 06/19/12 documented as of this encounter
--- OUTSIDE RECORDS SUMMARY | 2024-01-19 17:58 | XMS_ITS | Encounter Summary ---
Author Organization [facility] [place] [address] Care Team Providers Care Hand Tube Bender Name Role Phone Marlon Levine MD Primary Care Provider + [phone] Encounter Details Date Type Department Care Team (Latest Contact Info) Description 05/30/2011 12:23 PM EST - 05/30/2011 11:59 PM [facility] Hospital [place] [phone] CLINIC, Zach Lopez MD [facility] [place] [address] Pancreatitis Discharge Disposition: Home Social History Tobacco [...] reviewed by the attending Zach Paulson MD [facility] MRI ORDERABLES documented in this encounter Visit Diagnoses Diagnosis Pancreatitis Acute pancreatitis documented in this encounter Care Teams Hand Tube Bender Relationship Specialty Start Date End Date Marlon Levine MD [address] [place] [address] PCP - General 02/16/10 06/19/12 documented as of this encounter
--- OUTSIDE RECORDS SUMMARY | 2024-01-19 17:58 | XMS_ITS | Encounter Summary ---
Author Organization [facility] [place] [address] Care Team Providers Care Leasing Sales Consultant Name Role Phone Marlon Levine MD Primary Care Provider + [phone] Encounter Details Date Type Department Care Team (Late Contact Info) Description 03/17/2014 Telephone Hematology [place] [phone] Ronda Cruz, MS [facility] DR OBSTETRICS & [place] [address] Social History Tobacco Use Types Packs/Day Years [...] the Familial Cancer Program on 03/07/2014 in [facility]. She had previously had negative BRCA1/2 testing in 2005, but it did not seem as though she had the ANGELA part of the testing. She returned on 03/07 to have ANGELA done. I had received notification from [employer] that she actually did indeed have BARTtesting [...] on filedocumented in this encounter Care Teams Leasing Sales Consultant Relationship Specialty Start Date End Date Marlon Levine MD [address] [place] [address] PCP - General 06/20/12 documented as of this encounter
--- OUTSIDE RECORDS SUMMARY | 2024-01-19 17:58 | XMS_ITS | Encounter Summary ---
Author Organization Formerly [facility] Address [facility] [place] [address] Care Team Providers Care Tv News Director Name Role Phone Marlon Levine MD Primary Care Provider [phone] Reason for Visit * Reason Comments Follow-up Encounter Details Date Type Department Care Team (Late st Contact Info) Description 04/03/2015 3:30 PM EST Office Visit Hematology/Oncology at [address] [phone] John Beltran MD [facility] [place] [address] Bilateral malignant neoplasm of breast in female, [...] negative. Ten LNs were seen, all negative. ER/MN negative. HER2/cynthia negative. B. Four cycles of [...] There was no ALI or perineural invasion. ER/MN negative. HER2/cynthia negative by FISH. B. In [...] breast cancer and unfortunately in 01/08 in [place]. She has another sister who had a [...] she has a sister who lived in [place] and unfortunately of stage IV breast cancer [...] breast documented in this encounter Care Teams Tv News Director Relationship Specialty Start Date End Date Marlon Levine MD [address] [place] [address] PCP - General 06/20/12 documented as of this encounter
--- OUTSIDE RECORDS SUMMARY | 2024-01-19 17:58 | XMS_ITS | Encounter Summary ---
Author Organization [facility] Address [facility] [place] [address] Care Team Providers Care Plastic Mould Maker Name Role Phone Marlon Levine MD Primary Care Provider [phone] Reason for Visit * Reason Comments Follow-up Encounter Details Date Type Department Care Team (Late st Contact Info) Description 03/23/2012 3:00 PM EST Follow-Up Hematology Oncology at [address] [phone] John Beltran MD [facility] [place] [address] Breast cancer (Primary Dx) Discharge Disposition: Home [...] negative. Ten LNs were seen, all negative. ER/ID negative. HER2/cynthia negative. B. Four cycles of [...] There was no ALI or perineural invasion. ER/ID negative. HER2/cynthia negative by FISH. B. In [...] today, she feels well. 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 No areas of pain.Her [...] site documented in this encounter Care Teams Plastic Mould Maker Relationship Specialty Start Date End Date Marlon Levine MD [address] [place] [address] PCP - General 02/16/10 06/19/12 documented as of this encounter
--- OUTSIDE RECORDS SUMMARY | 2024-01-19 17:58 | XMS_ITS | Encounter Summary ---
Author Organization [facility] [place] [address] Care Team Providers Care Division Officer Weapons Department Name Role Phone Marlon Levine MD Primary Care Provider [phone] Encounter Details Date Type Department Care Team (Latest Contact Info) Description 07/01/2013 11:53 AM EDT - 07/01/2013 3:24 PM EDT Hospital Encounter [place] [phone] Tali Kamara MD [facility] [place] [address] Queenie Hicks MD [facility] DR GASTROENTER[place] [address] Discharge Disposition: Home Social History Tobacco Use [...] not get better as expected. Monday-Monday Clinic [phone] 8a-5p Same Day Endo [phone]-8p Otherwise contact [phone] and ask to speak to the linux server administrator solutions consultant Follow-up care is a [place] part [...] (07/01/2013 2:09 PM EDT) UPPER GI ENDOSCOPY [facility] Endoscopy Patient Name: Antonia Lance ? Procedure Date: 07/01/2013 2:09 PM ? N: [id number] ? Date of : 1970 ? Age: 42 ? Order #: [id number] ? Procedure: ? Upper GI endoscopy Indications: ? Epigastric abdominal pain Providers: ? Tali Kamara MD, Tari Chen MD, ? Suraj Silva, MICHELET, Nayla Torres. ? Rubens Referring : ?Marlon [...] CRNA) documented in this encounter Care Teams Division Officer Weapons Department Relationship Specialty Start Date End Date Marlon Levine MD [address] [place] [address] PCP - General 06/20/12 documented as of this encounter
--- OUTSIDE RECORDS SUMMARY | 2024-01-19 17:58 | XMS_ITS | Encounter Summary ---
Author Organization [facility] [place] [address] Care Team Providers Care Laborer Hoisting Name Role Phone Marlon Levine MD Primary Care Provider + [phone] Encounter Details Date Type Department Care Team (Late st Contact Info) Description 02/14/2013 [place] [address] Maria C Gomez MD [facility] [place] [address] Social History Tobacco Use Types Packs/Day Years [...] on filedocumented in this encounter Care Teams Laborer Hoisting Relationship Specialty Start Date End Date Marlon Levine MD [address] [place] [address] PCP - General 06/20/12 documented as of this encounter
--- OUTSIDE RECORDS SUMMARY | 2024-01-19 17:58 | XMS_ITS | Encounter Summary ---
Author Organization [facility] [place] [address] Care Team Providers Care Shank Sorter Name Role Phone Marlon Levine MD Primary Care Provider + [phone] Reason for Visit * Reason Comments Breast Mass Encounter Details Date Type Department Care Team (Late st Contact Info) Description 11/21/2012 9:15 AM EDT Follow-[place] [address] Ana Lilia Soria FORM PRESSER [facility] [place] [address] Mass (Primary Dx) Discharge Disposition: Home Social [...] Ten lymph nodes were negative. Thetumor was ER/CT-negative and HER2-negative. Antonia went on to adjuvant [...] metaplastic spindle cell features Tumor Grade: High Ljoprp-Sffvy-Ovtemzhayl Score: 8 Tubular Differentiation: 3 Mitotic Rate: [...] Nipple Involvement: NA Correlation Biopsies/Cytology Needle bx [id number], 08/07/07. 2005-left breast excision [id number]. Other findings: NA Estrogen/Progestin receptors: Performed on block A4 ER immunoreactivity: Negative (see Diagnostic del toro*) CT immunoreactivity: Negative (see Diagnostic del toro*) HER2 negative [place] node excision was without evidence of metastatic [...] Soria NP recommended. Preliminary report E-mailed to Trai Soria NP on 11/27/12. Margarita Joe MD IMG MAMMO ORDERABLE S documented in this encounter Visit Diagnoses Diagnosis Mass- Primary Localized superficial swelling, mass, or lump Mass Localized superficial swelling, mass, or lump documented in this encounter Care Teams Shank Sorter Relationship Specialty Start Date End Date Marlon Levine MD [address] [place] [address] PCP - General 06/20/12 documented as of this encounter
--- OUTSIDE RECORDS SUMMARY | 2024-01-19 17:58 | XMS_ITS | Encounter Summary ---
Author Organization [facility] [place] [address] Care Team Providers Care Pharmacy Retail Support Specialist Name Role Phone Marlon Levine MD Primary Care Provider + [phone] Encounter Details Date Type Department Care Team (Late st Contact Info) Description 09/02/2016 Telephone Dermatology at [facility] [address] [place] [phone] Kenrick Chen MD [address] [facility] [place] [address] Social History Tobacco Use Types Packs/Day Years [...] sent at 09/01/2016 7:58 PM EDT ----- [id number] Skin, right tip of nose, shave biopsy: Molluscum contagiosum. Molluscum Contagiosum, Nose Viral infection. Shave biopsy should have treated this. No further treatment necessary. documented in this encounter Plan of Treatment Not on file documented as of this encounter Visit Diagnoses Not on filedocumented in this encounter Care Teams Pharmacy Retail Support Specialist Relationship Specialty Start Date End Date Marlon Levine MD [address] [place] [address] PCP - General 06/20/12 documented as of this encounter
--- OUTSIDE RECORDS SUMMARY | 2024-01-19 17:58 | XMS_ITS | Encounter Summary ---
Author Organization [facility] [place] [address] Care Team Providers Care Iron Pourer Name Role Phone Marlon Levine MD Primary Care Provider + [phone] Encounter Details Date Type Department Care Team (Late st Contact Info) Description 11/08/2013 Telephone [place] [phone] Jennifer Marin, RN Social History Tobacco Use [...] on filedocumented in this encounter Care Teams Iron Pourer Relationship Specialty Start Date End Date Marlon Levine MD [address] [place] [address] PCP - General 06/20/12 documented as of this encounter
--- OUTSIDE RECORDS SUMMARY | 2024-01-19 17:58 | XMS_ITS | Encounter Summary ---
Author Organization [facility] [place] [address] Care Team Providers Care Qa Developer Name Role Phone Marlon Levine MD Primary Care Provider + [phone] Reason for Visit * Reason Comments Skin Lesion Encounter Details Date Type Department Care Team (Late st Contact Info) Description 08/31/2016 8:45 AM EDT Office Visit Dermatology at [facility] [address] [place] [address] Kenrick Chen MD [address] [facility] [place] [place] [address] Neoplasm of uncertain behavior of skin (Primary [...] Chen MD - 09/01/2016 7:58 PM EDT [id number] Skin, right tip of nose, shave biopsy: Molluscum contagiosum. Molluscum Contagiosum, Nose Viral infection. Shave biopsy should have treated this. No further treatment necessary. * Kenrick Chen MD - 08/31/2016 8:45 AM EDT Images from the original note were not included. DEPARTMENT DERMATOLOGY AT [facility] Dermatology At [facility] [address] [facility] [address] NEW PATIENT Chief Complaint: Lesion on nose [...] Kenrick Chen MD FAAD Section of Dermatology [facility] documented in this encounter Plan of Treatment Not on file documented as of this encounter Procedures Procedure Name Priority Date/Time Associated Diagnosis Comments SPECIMEN TO PATHOLOGY (NON-OR) Routine 08/31/2016 10:38 AM EDT Neoplasm of uncertain behavior of skin SURGICAL PATHOLOGY REPORT Routine 08/31/2016 10:38 AM EDT documented in this encounter Results * Surgical Pathology Report (08/31/2016 10:38 AM EDT) Final Diagnosis [id number] ?Location: [facility] The signing pathologist has (i) [...] Bisected. (T1) ??ejr 09/01/2016 12:11 PM EDT [facility] SPECIMEN FROM SKIN / Unknown 08/31/2016 10:38 AM EDT 08/31/2016 10:38 AM EDT Kenrick Chen MD PATHOLOGY/CYTOLOGY O RDERABLES [facility] [place] [address] * Specimen to Pathology (NON-OR) (08/31/2016 10:38 AM EDT) AP Specimen 08/31/2016 10:3 8 AM EDT 08/31/2016 12:47 PM EDT Narrative [facility] - 08/31/2016 12:48 PM EDT Specimen requisition ordered. ??Separate Pathology report to follow Resulting Agency Comment Spec In Lab Kenrick Chen MD PATHOLOGY/CYTOLOGY O [place] [facility] [place] [address] documented in this encounter Visit Diagnoses Diagnosis Neoplasm of uncertain behavior of skin- Primary documented in this encounter Care Teams Qa Developer Relationship Specialty Start Date End Date Marlon Levine MD [address] [place] [address] PCP - General 06/20/12 documented as of this encounter
--- OUTSIDE RECORDS SUMMARY | 2024-01-19 17:58 | XMS_ITS | Encounter Summary ---
Author Organization [facility] Address [facility] [place] [address] Care Team Providers Care Dough Puncher Name Role Phone Marlon Levine MD Primary Care Provider + [phone] Reason for Visit * Reason Comments Follow-up Encounter Details Date Type Department Care Team (Late st Contact Info) Description 06/21/2013 10:00 AM EDT Follow-[place] [address] Tari Chen MD [facility] [place] [address] Weight loss (Primary Dx) Discharge Disposition: Home [...] labwork; most recent ED visit was at [facility] 06/13/13. Pt was sent home with TID dicyclomine --Presented to [facility] ED with abdominal pain, DC from ED [...] Chen MD Fellow, Section of Gastroenterology Pager [phone] documented in this encounter Plan of Treatment [...] weight documented in this encounter Care Teams Dough Puncher Relationship Specialty Start Date End Date Marlon Levine MD [address] [place] [address] PCP - General 06/20/12 documented as of this encounter
--- OUTSIDE RECORDS SUMMARY | 2024-01-19 17:58 | XMS_ITS | Encounter Summary ---
Author Organization [facility] [place] [address] Care Team Providers Care Electronic Pagination System Operator Name Role Phone Marlno Levine MD Primary Care Provider [phone] Reason for Referral * Consultation (Routine) - Closed Specialty Diagnoses / Procedures Referred By Mateo sims Referred To Contact Hematology and Oncology Diagnoses Breast cancer, female, unspecified laterality John Beltran MD [facility] [place] [address] [place] [address] Referral ID Status Reason Start Date Expiration Date V isits Requested Visits Authorized [id number] Closed Consult, Test & Treat 04/19/2013 10/16/2013 1 1 Encounter Details Date Type Department Care Team (Late st Contact Info) Description 04/19/2013 3:30 PM EST Follow-Up Hematology Oncology at [address] [phone] John Beltran MD [facility] [place] [address] Breast cancer, female, unspecified laterality (Primary Dx) [...] negative. Ten LNs were seen, all negative. ER/HI negative. HER2/cynthia negative. B. Four cycles of [...] There was no ALI or perineural invasion. ER/HI negative. HER2/cynthia negative by FISH. B. In [...] reversal. 8. Obstructive sleep apnea HPI Ms. Lnace returns in f/u of bilateral breast cancer [...] she has a sister who lives in [place] and unfortunately has stage IV breast cancer. [...] Primary documented in this encounter Care Teams Electronic Pagination System Operator Relationship Specialty Start Date End Date Marlon Levine MD [address] [place] [address] PCP - General 06/20/12 documented as of this encounter
--- OUTSIDE RECORDS SUMMARY | 2024-01-19 17:58 | XMS_ITS | Encounter Summary ---
Author Organization [facility] [place] [address] Care Team Providers Care Network Contract Manager Name Role Phone Marlon Levine MD Primary Care Provider + [phone] Encounter Details Date Type Department Care Team (Late st Contact Info) Description 10/30/2012 2:15 PM EDT [place] [address] Erick Marx MD [facility] [place] [address] Migraine (Primary Dx); Visual complaint Discharge Disposition: [...] really noticed it until she saw an antiquer locally for her headaches and then was [...] goes to college. 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 She does not smoke, does not drink [...] eye documented in this encounter Care Teams Network Contract Manager Relationship Specialty Start Date End Date Marlon Levine MD [address] [place] [address] PCP - General 06/20/12 documented as of this encounter
--- OUTSIDE RECORDS SUMMARY | 2024-01-19 17:58 | XMS_ITS | Encounter Summary ---
Author Organization [facility] [place] [address] Care Team Providers Care Asw/Asuw Tactical Air Controller Name Role Phone Marlon Levine MD Primary Care Provider + [phone] Reason for Visit * Reason Onset Date Comments Follow-up 11/29/2012 Encounter Details Date Type Department Care Team (Late st Contact Info) Description 11/29/2012 Telephone [place] [phone] Ana Lilia Soria APRN [facility] [place] [address] Follow-up Social History Tobacco Use Types Packs/Day [...] on filedocumented in this encounter Care Teams Asw/Asuw Tactical Air Controller Relationship Specialty Start Date End Date Marlon Levine MD [address] [place] [address] PCP - General 06/20/12 documented as of this encounter
--- OUTSIDE RECORDS SUMMARY | 2024-01-19 17:58 | XMS_ITS | Encounter Summary ---
Author Organization [facility] [place] [address] Care Team Providers Care Family Services Manager Name Role Phone Marlon Levine MD Primary Care Provider + [phone] Reason for Visit * Reason Onset Date Comments Results 08/18/2016 Encounter Details Date Type Department Care Team (Late st Contact Info) Description 08/18/2016 Telephone Obstetrics [place] [address] Valentina Moore MD [facility] DR OBSTETRICS [place] [address] Results Social History Tobacco Use Types Packs/Day [...] on filedocumented in this encounter Care Teams Family Services Manager Relationship Specialty Start Date End Date Marlon Levine MD [address] [place] [address] PCP - General 06/20/12 documented as of this encounter
--- OUTSIDE RECORDS SUMMARY | 2024-01-19 17:58 | XMS_ITS | Encounter Summary ---
Author Organization [facility] [address] [place] [place] [address] Care Team Providers Care Stapling Machine Operator Name Role Phone Marlon Levine MD Primary Care Provider + [phone] Encounter Details Date Type Department Care Team (Late st Contact Info) Description 11/05/2013 [place] [phone] Laury Katz RN Social History Tobacco Use [...] on filedocumented in this encounter Care Teams Stapling Machine Operator Relationship Specialty Start Date End Date Marlon Levine MD [address] [place] [address] PCP - General 06/20/12 documented as of this encounter
--- OUTSIDE RECORDS SUMMARY | 2024-01-19 17:58 | XMS_ITS | Encounter Summary ---
Author Organization [facility] Address [facility] [place] [address] Care Team Providers Care Vacuum Drier Operator Name Role Phone Marlon Levine MD Primary Care Provider + [phone] Reason for Visit * Reason Comments Strabismus 6--wks f/u for ESOTR OPIA-OD Encounter Details Date Type Department Care Team (Late st Contact Info) Description 12/07/2012 2:15 PM EDT Follow-[place] [address] Nikki Orourke MD [facility] [place] [address] Esotropia (Primary Dx); Anisometropia Discharge Disposition: Home [...] Mild amblyopia OD. Plan: Cont current Rx cart pusher. F/u with SMP as scheduled. If no concerns for neuro-op cause, willplan to see her back in 6 months. NIKKI OROURKE MD documented in this encounter Plan of Treatment Not on file documented as of this encounter Visit Diagnoses Diagnosis Esotropia- Primary Esotropia, unspecified Anisometropia documented in this encounter Care Teams Vacuum Drier Operator Relationship Specialty Start Date End Date Marlon Levine MD [address] [place] [address] PCP - General 06/20/12 documented as of this encounter
--- OUTSIDE RECORDS SUMMARY | 2024-01-19 17:58 | XMS_ITS | Encounter Summary ---
Author Organization [facility] [place] [address] Care Team Providers Care Immigration Officer Name Role Phone Marlon Levine MD Primary Care Provider + [phone] Reason for Visit * Reason Onset Date Comments Follow-up 11/29/2012 Encounter Details Date Type Department Care Team (Late st Contact Info) Description 11/29/2012 Telephone [place] [phone] Ana iLlia Soria APRN [facility] [place] [address] Follow-up Social History Tobacco Use Types Packs/Day [...] [facility] an [facility]. I have left her my number asking her to call me. documented in this encounter Plan of Treatment Not on file documented as of this encounter Visit Diagnoses Not on filedocumented in this encounter Care Teams Immigration Officer Relationship Specialty Start Date End Date Abner, Marlon H, MD [address] [place] [address] PCP - General 06/20/12 documented as of this encounter
--- OUTSIDE RECORDS SUMMARY | 2024-01-19 17:58 | XMS_ITS | Encounter Summary ---
Author Organization [facility] Address [facility] [place] [address] Care Team Providers Care Gore Cutter Name Role Phone Marlon Levine MD Primary Care Provider + [phone] Reason for Visit * Reason Comments Dermatitis Encounter Details Date Type Department Care Team (Late st Contact Info) Description 08/17/2011 3:45 PM EDT Office Visit Dermatology [facility] [address] [place] [address] Mauro Sung MD [address], [place] [address] Halo nevus (Primary Dx); Neurodermatitis Social History [...] which she has only been treating with baim-qrx-jcdlcbn emollient lotions and creams. For about six [...] chronicus documented in this encounter Care Teams Gore Cutter Relationship Specialty Start Date End Date Marlon Levine MD [address] [place] [address] PCP - General 02/16/10 06/19/12 documented as of this encounter
--- OUTSIDE RECORDS SUMMARY | 2024-01-19 17:58 | XMS_ITS | Encounter Summary ---
Author Organization [facility] [place] [address] Care Team Providers Care Recreation Manager Name Role Phone Marlon Levine MD Primary Care Provider + [phone] Encounter Details Date Type Department Care Team (Late st Contact Info) Description 10/31/2012 [place] [address] Nikki Hill MD [facility] [place] [address] Social History Tobacco Use Types Packs/Day Years [...] on filedocumented in this encounter Care Teams Recreation Manager Relationship Specialty Start Date End Date Marlon Levine MD [address] [place] [address] PCP - General 06/20/12 documented as of this encounter
--- OUTSIDE RECORDS SUMMARY | 2024-01-19 17:58 | XMS_ITS | Encounter Summary ---
Author Organization [facility] [place] [address] Care Team Providers Care Clinic Specialist Name Role Phone Marlon Levine MD Primary Care Provider [phone] Reason for Visit * Reason Onset Date Comments Results 08/25/2016 Encounter Details Date Type Department Care Team (Late st Contact Info) Description 08/25/2016 Telephone Obstetrics [place] [address] Valentina Moore MD [facility] DR OBSTETRICS [place] [address] Results Social History Tobacco Use Types Packs/Day [...] on filedocumented in this encounter Care Teams Clinic Specialist Relationship Specialty Start Date End Date Marlon Levine MD [address] [place] [address] PCP - General 06/20/12 documented as of this encounter
--- OUTSIDE RECORDS SUMMARY | 2024-01-19 17:58 | XMS_ITS | Encounter Summary ---
Author Organization [facility] Address [facility] [place] [address] Care Team Providers Care Transportation Driver Name Role Phone Marlon Levine MD Primary Care Provider [phone] Reason for Visit * Reason Comments Follow-up Encounter Details Date Type Department Care Team (Late st Contact Info) Description 10/19/2012 1:00 PM EDT Follow-Up Hematology Oncology at [address] [address] John Beltran MD [facility] [place] [address] Breast cancer (Primary Dx) Discharge Disposition: Home [...] trial of CPAP. 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 No areas of pain. [...] site documented in this encounter Care Teams Transportation Driver Relationship Specialty Start Date End Date Marlon Levine MD [address] [place] [address] PCP - General 06/20/12 documented as of this encounter
--- OUTSIDE RECORDS SUMMARY | 2024-01-19 17:58 | XMS_ITS | Encounter Summary ---
Author Organization [facility] [place] [address] Care Team Providers Care Laborer Starch Factory Name Role Phone Marlon Levine MD Primary Care Provider + [phone] Encounter Details Date Type Department Care Team (Late st Contact Info) Description 07/01/2013 2:09 PM EDT Anesthesia [place] [address] Satnam Guerra MD [facility] [place] [address] Mauro Gold CRNA [facility] DR [place] [address] Anesthesia Record Procedure Summary Procedure Name Responsible [...] 1222; median cubital vein (antecubital fossa), right; yybk-xwu-gjbhjp catheter system; 22 gauge, 1 in length; pepper; intradermal injection; 0; 07/01/13; 1750 07/01/13 1222 by Kim Dowell 07/01/13 1750 by Chay Lechuga documented in [...] ENDOSCOPIC ULTRASOUND performed by CHUCHO ZAPATA at [facility] ENDOSCOPY History Substance Use Topics ??? Smoking [...] r documented in this encounter Care Teams Laborer Starch Factory Relationship Specialty Start Date End Date Marlon Levine MD [address] [place] [address] PCP - General 06/20/12 documented as of this encounter
--- OUTSIDE RECORDS SUMMARY | 2024-01-19 17:58 | XMS_ITS | Encounter Summary ---
Author Organization [facility] Address [facility] [place] [address] Care Team Providers Care Senior Informatica Etl Developer Name Role Phone Marlon Levine MD Primary Care Provider + [phone] Reason for Visit * Reason Onset Date Comments Results 06/23/2016 Encounter Details Date Type Department Care Team (Late st Contact Info) Description 06/23/2016 Telephone Obstetrics [place] [phone] Valentina Moore MD [facility] DR OBSTETRICS [place] [address] Results Social History Tobacco Use Types Packs/Day [...] like clarification. You can reach her at: [phone] Thanks, Mara If she needs to be [...] on filedocumented in this encounter Care Teams Senior Informatica Etl Developer Relationship Specialty Start Date End Date Marlon Levine MD [address] [place] [address] PCP - General 06/20/12 documented as of this encounter
--- OUTSIDE RECORDS SUMMARY | 2024-01-19 17:58 | XMS_ITS | Encounter Summary ---
Author Organization [facility] Address [facility] [place] [address] Care Team Providers Care Baked And Graphite Inspector Name Role Phone Marlon Levine MD Primary Care Provider + [phone] Reason for Visit * Reason Comments Breast Cancer Encounter Details Date Type Department Care Team (Late st Contact Info) Description 03/07/2014 9:00 AM EST Office Visit Hematology Oncology at [address] [phone] John Beltran MD [facility] [place] [address] Malignant neoplasm of breast (female), unspecified site; [...] test result disclosure. Priscilla Rubi, our program clinical review nurse, will contact Antonia in the near future [...] breast documented in this encounter Care Teams Baked And Graphite Inspector Relationship Specialty Start Date End Date Marlon Levine MD [address] [place] [address] PCP - General 06/20/12 documented as of this encounter
--- OUTSIDE RECORDS SUMMARY | 2024-01-19 17:58 | XMS_ITS | Encounter Summary ---
Author Organization [facility] Address [facility] [place] [address] Care Team Providers Care Wire Communications Engineer Name Role Phone Marlon Levine MD Primary Care Provider [phone] Encounter Details Date Type Department Care Team (Late st Contact Info) Description 05/30/2011 4:00 PM EST - 05/30/2011 5:00 PM EST Surgery [place] [address] Jag Tyler MD [facility] [place] [address] UPPER EUS- ENDOSCOPIC ULTRASOUND (WRVU 3.47) Social [...] encounter Discharge Instructions * Discharge Instructions* Meg Hguo RN - 05/30/2011 5:27 PM EST You [...] Monday, 8:00 am to 5:00pm, . The departmental secretary will need your name, medical problem, and date of the bronchoscopy. After 5pm call [phone] and ask for the pulmonary doctor marine transport professionals. * Patient Instructions* Jag Tyler MD - 05/30/2011 5:33 PM EST Please see Recommendations in the Provation procedure report which is documented in the procedural note in E-DH. * Attachments The following attachments cannot be sent through Care Everywhere. * UPPER GI ENDOSCOPY: WHAT TO EXPECT AT HOME (IVORIAN) documented in this encounter Medications at Time [...] Tyler MD - 05/30/2011 5:18 PM EST [facility] Operative Note Patient Name: Antonia Lance : [id number] MR#: [id number] Case Date: 05/30/2011 Surgeon: Surgeon(s) and Role: [...] (05/30/2011 4:42 PM EST) UPPER ENDOSCOPIC ULTRASOUND [facility] Endoscopy Patient Name: Antonia Lance ? Procedure Date: 05/30/2011 4:42 PM ? Date of : 1970 ? Age: 40 ? Order #: [id number] ? Procedure: ? Upper EUS Indications: ? Acute pancreatitis, f/up acute ? pancreatitis Providers: ? Jag Tyler MD, Martha Nava, ? RN, Ivory Eubanks, Dry Starch Operator Referring : ?Marlon Levine MD, Roxana Ojeda [...] nausea) documented in this encounter Care Teams Wire Communications Engineer Relationship Specialty Start Date End Date Marlon Levine MD [address] [place] [address] PCP - General 02/16/10 06/19/12 documented as of this encounter
--- OUTSIDE RECORDS SUMMARY | 2024-01-19 17:58 | XMS_ITS | Encounter Summary ---
Author [facility] [place] [address] Care Team Providers Care Computer Numerical Control Grinder Name Role Phone Marlon Levine MD Primary Care Provider [phone] Encounter Details Date Type Department Care Team (Late st Contact Info) Description 05/07/2014 Notes Only [place] [address] Tania Hassan, RN Social History Tobacco Use [...] filedocumented in this encounter Care Teams Computer Numerical Control Grinder Relationship Specialty Start Date End Date Marlon Levine MD [address] [place] [address] PCP - General 06/20/12 documented as of this encounter
--- OUTSIDE RECORDS SUMMARY | 2024-01-19 17:58 | XMS_ITS | Encounter Summary ---
Author Organization [facility] [place] [address] Care Team Providers Care Tank Builder Supervisor Name Role Phone Marlon Levine MD Primary Care Provider + [phone] Encounter Details Date Type Department Care Team (Late st Contact Info) Description 07/29/2016 Telephone Obstetrics [place] [address] Valentina Moore MD [facility] DR OBSTETRICS [place] [address] Social History Tobacco Use Types Packs/Day Years [...] history is as follows: Had LEEP in [place] in 12/2015 - confirmed DANTE 2 with negative margins. No ECC done at that time. Has not had any follow-up yet. She saw Ingrid Delacruz NP in the oncology division recently, who recommended that she have [place] ship superintendent [place] [facility] to make sure she is treated and [...] ENDOSCOPIC ULTRASOUND performed by CHUCHO ZAPATA at [facility] ENDOSCOPY ??? PRO UPPER GI ENDOSCOPY, DIAGNOSTIC 07/01/2013 EGD, UPPER GI ENDOSCOPY performed by Tali Kamara MD at [facility] ENDOSCOPY Family History Problem Relation Age of [...] will schedule her for a routine annual home care associate visit. Will get in touch regarding results as soon as they are available. Valentina Moore MD documented in this encounter Plan of Treatment Not on file documented as of this encounter Visit Diagnoses Not on filedocumented in this encounter Care Teams Tank Builder Supervisor Relationship Specialty Start Date End Date Marlon Levine MD [address] [place] [address] PCP - General 06/20/12 documented as of this encounter
--- OUTSIDE RECORDS SUMMARY | 2024-01-19 17:58 | XMS_ITS | Encounter Summary ---
Author Organization [facility] [place] [address] Care Team Providers Care Manager Secondary Name Role Phone Marlon Levine MD Primary Care Provider [phone] Encounter Details Date Type Department Care Team (Late st Contact Info) Description 08/06/2012 [place] [address] Erick Marx MD [facility] [place] [address] Social History Tobacco Use Types Packs/Day Years [...] filedocumented in this encounter Care Teams Manager Secondary Relationship Specialty Start Date End Date Marlon Levine MD [address] [place] [address] PCP - General 06/20/12 documented as of this encounter
--- OUTSIDE RECORDS SUMMARY | 2024-01-19 17:58 | XMS_ITS | Encounter Summary ---
Author Organization [facility] Address [facility] [place] [address] Care Team Providers Care Math Specialist Name Role Phone Marlon Levine MD Primary Care Provider [phone] Encounter Details Date Type Department Care Team (Latest Contact Info) Description 11/23/2012 3:00 PM EDT - 11/23/2012 11:59 PM EDT Hospital [place] [phone] CLINIC, Margarita Vaughn MD [facility] [place] [address] [place] Discharge Disposition: Home Social History Tobacco [...] lump documented in this encounter Care Teams Math Specialist Relationship Specialty Start Date End Date Marlon Levine MD [address] [place] [address] PCP - General 06/20/12 documented as of this encounter
--- OUTSIDE RECORDS SUMMARY | 2024-01-19 17:58 | XMS_ITS | Encounter Summary ---
Author Organization [facility] [place] [address] Care Team Providers Care Retail Sales Professional Name Role Phone Marlon Levine MD Primary Care Provider [phone] Encounter Details Date Type Department Care Team (Late st Contact Info) Description 06/09/2017 11:15 AM EDT Office Visit Hematology/Oncology at [address] [phone] Ingrid Delacruz, TRAY DRIER [address] [facility] [place] [address] Malignant neoplasm of female breast, unspecified estrogen [...] this encounter Progress Notes * Ingrid Delacruz, TRAY DRIER - 06/09/2017 11:15 AM EDT Subjective: Patient ID: Antonia Jennings is a 46 y.o. female. Problem List: 1. Cancer of the left breast, T2, N0, M0. A. Dx'd 01/29, s/p lumpectomy and ALND. Path-2.5-cm infiltrating ductal carcinoma, SBR score of 8. Final margins of resection were negative. Ten LNs were seen, all negative. ER/VT negative. HER2/cynthia negative. B. Four cycles of [...] There was no ALI or perineural invasion. ER/VT negative. HER2/cynthia negative by FISH. B. In [...] reversal. 8. Obstructive sleep apnea HPI Ms. aLnce returns in f/u of bilateral breast cancer as above. It has been 9 years since she completed adjuvant chemotherapy for the second breast cancer, which was of the right breast. She has undergone bilateral mastectomy with reconstruction. 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 Her sister had stage IV breast cancer and unfortunately in 01/08 in [place]. 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 I encouraged a yearly visit with her PCP last year however this year asks if she needs to see one for more than PRN illness issues- I toldher that an annual exam and basic labs of CBC and CMP are recommended yearly along with her CLERK ANALYST fwup. Her daughter has not yet started screening. Given her bone pain and urine issues, I have ordered labs, a bone scan, and a urinalysis today, labs and urinalysis were entirely normal. I will plan to see her back in 2wks for fwup after her bone scan to discuss results. As noted above, she has a sister who lived in [place] and unfortunately of stage IV breast cancer [...] or by age 31. Ingrid Delacruz, MSN, MACHINE SPECIALIST, AOCN Hematology/Oncology Nurse Practitioner [place], [place] [phone] documented in this encounter Plan of Treatment Not on file documented as of this encounter Visit Diagnoses Diagnosis Malignant neoplasm of female breast, unspecified estrogen receptor status, unspecified laterality, unspecified site of breast documented in this encounter Care Teams Retail Sales Professional Relationship Specialty Start Date End Date Marlon Levine MD [address] [place] [address] PCP - General 06/20/12 documented as of this encounter
--- OUTSIDE RECORDS SUMMARY | 2024-01-19 17:58 | XMS_ITS | Encounter Summary ---
Author Organization [facility] Address [facility] [place] [address] Care Team Providers Care Assembler Bicycle Name Role Phone Marlon Levine MD Primary Care Provider + [phone] Reason for Visit * Reason Comments Strabismus Double vision,blurry vision,OD Encounter Details Date Type Department Care Team (Late st Contact Info) Description 11/01/2012 2:00 PM EDT [place] [address] Nikki Orourke MD [facility] [place] [place] [address] Diplopia (Primary Dx); Esotropia; Accommodative spasm; Anisometropia; [...] ET. Plan: Rx given to address anisometropia. timekeeper supervisor wear needed. No bifocals at this time. F/u in 6 weeks with EMS, SMP next available. NIKKI OROURKE MD documented in this encounter Plan of Treatment Not on file documented as of this encounter Visit Diagnoses Diagnosis Diplopia- Primary Esotropia Esotropia, unspecified Accommodative spasm Spasm of accommodation Anisometropia Myopic astigmatism Astigmatism, unspecified documented in this encounter Care Teams Assembler Bicycle Relationship Specialty Start Date End Date Marlon Levine MD [address] [place] [address] PCP - General 06/20/12 documented as of this encounter
--- OUTSIDE RECORDS SUMMARY | 2024-01-19 17:58 | XMS_ITS | Encounter Summary ---
Author Organization [facility] Address [facility] [place] [address] Care Team Providers Care Hair Boiler Name Role Phone Marlon Levine MD Primary Care Provider [phone] Reason for Referral * Consultation (Routine) - Closed Specialty Diagnoses / Procedures Referred By Contac t Referred To Contact Obstetrics and Gynecology Diagnoses Malignant neoplasm of female breast, unspecified laterality, unspecified site of breast Ingrid Delacruz APRN [address] [place] [address] Valentina Moore MD [facility] OBSTETR[facility] [place] [address] Referral ID Status Reason Start Date Expiration Date V isits Requested Visits Authorized [id number] Closed Assume Subset of Care 05/27/2016 05/27/2017 1 1 Encounter Details Date Type Department Care Team (Late st Contact Info) Description 05/27/2016 8:45 AM EST Office Visit Hematology/Oncology at [address] [phone] Ingrid Delacruz APRN [address] [place] [address] Malignant neoplasm of female breast, [...] this encounter Progress Notes * Ingrid Delacruz, CUT LACE MACHINE OPERATOR - 05/27/2016 8:45 AM EST Subjective: Patient ID: Antonia Jennings is a 45 y.o. female. Problem List: 1. Cancer of the left breast, T2, N0, M0. A. Dx'd 01/29, s/p lumpectomy and ALND. Path-2.5-cm infiltrating ductal carcinoma, SBR score of 8. Final margins of resection were negative. Ten LNs were seen, all negative. ER/NV negative. HER2/cynthia negative. B. Four cycles of [...] There was no ALI or perineural invasion. ER/NV negative. HER2/cynthia negative by FISH. B. In [...] breast cancer and unfortunately in 01/08 in [place]. She has another sister who had a [...] breast cancer history and now her recent BELT SPLICER history, I would prefer that she be evaluated and followed at [facility] and have given her a referral to Valentina Moore MD and obtained her records which will be scanned into scanned doc tab of her [facility] chart. I also reviewed s&s of both [...] she has a sister who lived in [place] and unfortunately of stage IV breast cancer [...] or by age 31. Ingrid Delacruz, MSN, INDUSTRIAL COMMERCIAL GROUNDSKEEPER, AOCN Hematology/Oncology Nurse Practitioner [place], [place] [phone] documented in this encounter Plan of Treatment Scheduled Referrals Name Type Priority Associated Diagnoses Orde r Schedule Referral to Ob-Oracle Database Manager Outpatient Referral Routine Malignant Neoplasm Of Female [...] breast documented in this encounter Care Teams Hair Boiler Relationship Specialty Start Date End Date Marlon Levine MD [address] [place] [address] PCP - General 06/20/12 documented as of this encounter
--- OUTSIDE RECORDS SUMMARY | 2024-01-19 17:58 | XMS_ITS | Encounter Summary ---
Author Organization [facility] Address [facility] [place] [address] Care Team Providers Care Choir Singer Name Role Phone Marlon Levine MD Primary Care Provider [phone] Encounter Details Date Type Department Care Team (Latest Contact Info) Description 07/01/2013 3:28 PM EDT - 07/01/2013 11:59 PM EDT Hospital Encounter [place] [phone] CLINIC, Tali Loco MD [facility] [place] [address] Weight loss Discharge Disposition: Home Social History [...] mg documented in this encounter Care Teams Choir Singer Relationship Specialty Start Date End Date Marlon Levine MD [address] [place] [address] PCP - General 06/20/12 documented as of this encounter
--- OUTSIDE RECORDS SUMMARY | 2024-01-19 17:58 | XMS_ITS | Encounter Summary ---
Author Organization [facility] Address [facility] [place] [address] Care Team Providers Care Fabric Pattern Grader Name Role Phone Marlon Levine MD Primary Care Provider [phone] Reason for Referral * Consultation (Routine) - Closed Specialty Diagnoses / Procedures Referred By Mateo sims Referred To Contact Hematology and Oncology Diagnoses Bilateral breast cancer History of breast cancer, family history of breast cancer Procedures Consult and treat John Beltran MD [facility] [place] [address] Stj Hem Onc Infusion [address] [place] [phone] Referral ID Status Reason Start Date Expiration Date V isits Requested Visits Authorized [id number] Closed Consult, Test & Treat 11/22/2013 05/21/2014 1 1 Reason for Visit * Reason Comments Breast Cancer Encounter Details Date Type Department Care Team (Late st Contact Info) Description 11/22/2013 3:30 PM EDT Follow-Up Hematology Oncology at [address] [phone] John Beltran MD [facility] [place] [address] Bilateral breast cancer (Primary Dx) Discharge Disposition: [...] 3:15 PM EDT Subjective: Patient ID: Antonia Jennings is a 43 y.o. female. Problem List: [...] she has a sister who lives in [place] and unfortunately has stage IV breast [...] Primary documented in this encounter Care Teams Fabric Pattern Grader Relationship Specialty Start Date End Date Marlon Levine MD [address] [place] [address] PCP - General 06/20/12 documented as of this encounter
--- OUTSIDE RECORDS SUMMARY | 2024-01-19 17:58 | XMS_ITS | Encounter Summary ---
Author Organization [facility] [place] [address] Care Team Providers Care Pulp Tester Name Role Phone Marlon Levine MD Primary Care Provider + [phone] Encounter Details Date Type Department Care Team (Late st Contact Info) Description 07/03/2013 [place] [phone] Elena Graham RN Social History Tobacco Use [...] on filedocumented in this encounter Care Teams Pulp Tester Relationship Specialty Start Date End Date Marlon Levine MD [address] [place] [address] PCP - General 06/20/12 documented as of this encounter
--- OUTSIDE RECORDS SUMMARY | 2024-01-19 17:59 | XMS_ITS | Encounter Summary ---
Author Organization [facility] Address [facility] [place] [address] Care Team Providers Care Surgical Scrub Tech Name Role Phone Marlon Levine MD Primary Care Provider + [phone] Encounter Details Date Type Department Care Team (Late st Contact Info) Description 04/21/2011 Orders [place] [address] Jc Carpenter MD [facility] GENERAL [place] [address] Social History Tobacco Use Types Packs/Day Years [...] ORD ERABLES [facility] [address] [facility] [place] [address] documented in this encounter Visit Diagnoses Not on filedocumented in this encounter Care Teams Surgical Scrub Tech Relationship Specialty Start Date End Date Marlon Levine MD [address] [place] [address] PCP - General 02/16/10 06/19/12 documented as of this encounter
--- OUTSIDE RECORDS SUMMARY | 2024-01-19 17:59 | XMS_ITS | Encounter Summary ---
Author Organization [facility] [place] [address] Care Team Providers Care Glass Cutting Machine Operator Name Role Phone Marlon Levine MD Primary Care Provider + [phone] Encounter Details Date Type Department Care Team (Late st Contact Info) Description 04/21/2010 9:30 AM EST [place] [address] Chavez Hinkle MD [facility] [address] [place] [address] Discharge Disposition: Home Social History Tobacco Use [...] on filedocumented in this encounter Care Teams Glass Cutting Machine Operator Relationship Specialty Start Date End Date Marlon Levine MD [address] [place] [address] PCP - General 02/16/10 06/19/12 documented as of this encounter
--- OUTSIDE RECORDS SUMMARY | 2024-01-19 17:59 | XMS_ITS | Encounter Summary ---
Author Organization [facility] [address] Care Team Providers Care Mold Cleaner Name Role Phone Marlon Levine MD Primary Care Provider + [phone] Encounter Details Date Type Department Care Team (Late st Contact Info) Description 02/06/2008 Orders [place] [address] Margarita Joe MD [facility] DR GENERAL SURGERY [place] [id number] Social History Tobacco Use Types Packs/Day Years [...] 2:31 PM EST) Surgical Pathology Report [id number] ? Location: [facility] The signing pathologist has (i) examined [...] were performed . Microscopic Description using the Qvanteq GeneSearch ? Breast Lymph Node test. The sentinel lymph node and tested for the expression of mammoglobin, CK19 and PBGD using gene specific primers for amplification and probes for detection on the Precyse Smartcycler. Interpretation: ??Positive expression of the mammoglobin [...] ORDERABLES Performing Organization Address City/State/[facility] Co sd Phone Number [facility] documented in this encounter Visit Diagnoses Not on filedocumented in this encounter Care Teams Mold Cleaner Relationship Specialty Start Date End Date Marlon Levine MD [address] [place] [address] PCP - General 06/20/12 documented as of this encounter
--- OUTSIDE RECORDS SUMMARY | 2024-01-19 17:59 | XMS_ITS | Encounter Summary ---
Author Organization [facility] Address [address] [place] [address] Care Team Providers Care Proof Press Operator Name Role Phone Marlon Levine MD Primary Care Provider [phone] Encounter Details Date Type Department Care Team (Latest Contact Info) Description 11/16/2015 8:55 EDT - 11/16/2015 23:59 EDT Hospital Encounter [address] [address] Unknown, Provider, Discharge Disposition: Home or Self [...] Code Departure Means Destination Home or Self Nursing Home documented in this encounter Plan of Treatment Not on file documented as of this encounter Visit Diagnoses Not on filedocumented in this encounter Care Teams Proof Press Operator Relationship Specialty Start Date End Date Marlon Levine MD [address] [place] [address] PCP - General 06/17/12 documented as of this encounter
--- OUTSIDE RECORDS SUMMARY | 2024-01-19 17:59 | XMS_ITS | Encounter Summary ---
Author Organization [facility] Address [facility] [place] [address] Care Team Providers Care Side Panel Hanger Name Role Phone Marlon Levine MD Primary Care Provider + [phone] Encounter Details Date Type Department Care Team (Late st Contact Info) Description 08/07/2007 [place] [address] Leonel Dickerson MD [facility] [place] [address] Social History Tobacco Use Types Packs/Day Years [...] 1:01 PM EDT) Surgical Pathology Report [id number] ? Location: 3K The signing pathologist has [...] on filedocumented in this encounter Care Teams Side Panel Hanger Relationship Specialty Start Date End Date Marlon Levine MD [address] [place] [address] PCP - General 06/20/12 documented as of this encounter
--- OUTSIDE RECORDS SUMMARY | 2024-01-19 17:59 | XMS_ITS | Encounter Summary ---
Author Organization [facility] Address [address] [place] [address] Care Team Providers Care Sales Specialist Name Role Phone Marlon Levine MD Primary Care Provider [phone] Encounter Details Date Type Department Care Team (Late st Contact Info) Description 01/06/2020 Lab Requisition [facility] Pathology & Laboratory Medicine - [facility] [address] [place] [address] Mauro Garcia MD [address] [place] [address] Encounter for other general examination Social History [...] types, PCR Negative Negative 01/14/2020 15:15 EDT [facility] Comment:No E6 or E7 mRNA is detected from HPV types 16,18,31,33,35,39,45,51,52,56,58,59,66, and 68 by pump tender mediated amplification. Papanicolaou smear specimen (specimen) CERVIX UTERI STRUCTURE / Unknown 01/03/2020 13:45 EDT 01/13/2020 11:17 EDT Mauro Garcia MD MICROBIOLOGY - GENER AL ORDERABLES [facility] [address] [place] [address] * PAP TEST (01/03/2020 13:45 EDT) Specimens A. Cervix and/or Endocervix , ThinPrep Imaging System with Manual Evaluation 01/14/2020 15:15 T [facility] Specimen Adequacy Satisfactory for Evaluation - transformation zone component present 01/14/2020 15:15 [facility] General Categorization Negative for intraepithelial lesion or malignancy 01/14/2020 15:15 [facility] Attestation . 01/14/2020 15:15 [facility] at 1515 Clinical History See below 01/14/20 15:15 T [facility] HPV The result for the Human Papillomavirus (HPV) Detection-High Risk Types is Negative. No E6 or E7 mRNA is detected from HPV types 16,18,31,33,35,39 ,45,51,52,56,58,5 9,66, and 68 by pump tender mediated amplification.Clarissa ting was performed on specimen [id number] and was resulted on 01/14/2020 1507 EDT by MITCHEL, LAB INSTRUMENT RESULTS IN 01/14/2020 15:15 T [facility] Performing Lab [facility] 01/14/2020 15:15 T [facility] Scanned Images 01/14/2020 15:15 T [facility] Papanicolaou smear specimen (specimen) CERVIX UTERI STRUCTURE / Unknown 01/03/2020 13:45 EDT 01/06/2020 11:03 EDT Mauro Garcia MD PATHOLOGY ORDERABLES [facility] [address] [place] [address] documented in this encounter Visit Diagnoses Diagnosis Encounter for other general examination documented in this encounter Care Teams Sales Specialist Relationship Specialty Start Date End Date Marlon Levien MD [address] [place] [address] PCP - General 06/17/12 documented as of this encounter
--- OUTSIDE RECORDS SUMMARY | 2024-01-19 17:59 | XMS_ITS | Encounter Summary ---
Author Organization [facility] Address [address] [place] [address] Care Team Providers Care Trimming Caser Name Role Phone Marlon Levine MD Primary Care Provider [phone] Encounter Details Date Type Department Care Team (Latest Contact Info) Description 01/05/2016 11:29 EDT - 01/05/2016 23:59 EDT Hospital Encounter [address] [address] Unknown, Provider, Discharge Disposition: Home or Self [...] on filedocumented in this encounter Care Teams Trimming Caser Relationship Specialty Start Date End Date Marlon Levine MD [address] [place] [address] PCP - General 06/17/12 documented as of this encounter
--- OUTSIDE RECORDS SUMMARY | 2024-01-19 17:59 | XMS_ITS | Encounter Summary ---
Author Organization [facility] Address [address] [place] [address] Care Team Providers Care Jet Engine Mechanic Name Role Phone Marlon Levine MD Primary Care Provider [phone] Encounter Details Date Type Department Care Team (Latest Contact Info) Description 03/02/2018 9:58 EST - 03/02/2018 23:59 [facility] Hospital Encounter [address] [address] Unknown, Provider, Discharge Disposition: Home or Self [...] Code Departure Means Destination Home or Self Senior Care documented in this encounter Plan of Treatment Not on file documented as of this encounter Visit Diagnoses Not on filedocumented in this encounter Care Teams Jet Engine Mechanic Relationship Specialty Start Date End Date Marlon Levine MD [address] [place] [address] PCP - General 06/17/12 documented as of this encounter
--- OUTSIDE RECORDS SUMMARY | 2024-01-19 17:59 | XMS_ITS | Encounter Summary ---
Author Organization [place] [address] Care Team Providers Care Relish Maker Name Role Phone Marlon Levine MD Primary Care Provider [phone] Encounter Details Date Type Department Care Team (Late st Contact Info) Description 04/27/2011 External Results XRay at [address] [place] [address] Reynaldo Bolton MD EMERGENCY DEPT [address] [facility] [address] [place] [address] Social History Tobacco Use Types Packs/Day Years [...] on filedocumented in this encounter Care Teams Relish Maker Relationship Specialty Start Date End Date Marlon Levine MD [address] [place] [address] PCP - General 02/16/10 06/19/12 documented as of this encounter
--- OUTSIDE RECORDS SUMMARY | 2024-01-19 17:59 | XMS_ITS | Encounter Summary ---
Author Organization [facility] [place] [address] Care Team Providers Care Attendance Clerk Name Role Phone Marlon Levine MD Primary Care Provider [phone] Reason for Visit * Reason Comments GI Problem Encounter Details Date Type Department Care Team (Late st Contact Info) Description 05/18/2011 10:00 AM EST Office [place] [address] Jonathan Roman MD [facility] [place] [address] Pancreatitis (Primary Dx) Discharge Disposition: Home Social [...] nausea or vomiting. She was evaluated at [facility] for these symptoms with labs revealing lipase 53,322, Albumin 4.1, Tb 1.9, Alk Phos 154, AST 318, ALT 414. A CT demonstrated aprominent pancreatic head with peripancreatic stranding consistent with pancreatitis with an otherwise normal biliary tree. Ms. Lance was admitted to [facility] for approximately one week and eventually transferred to [facility] for failure to improve. While at [facility] she underwent RUQ US which demonstrated no evidence of choledocholithiasis and otherwise normal biliary tree. Lab testing was notable for elevated LFTs as above, normal calcium, normal triglycerides. History is additionally notable for the absence of alcohol use, absence of any trauma, recent travel, recent new meds or herbals, or any prior personal history of pancreatitis. Upon transfer to [facility], a CT PE protocol as obtained given tachypnea, hypoxia, and tachycardia which demonstrated no evidence of PE, did demonstrate bilateral pleural effusions related to recent pancreatitis. She eventually improved with ongoing supportive care including IV fluids, analgesia. Repeat LFTs at [facility] were notably normal Since transfer Ms. Lance [...] with lumpectomy with chemo/XRT Faustin Gilberto in [facility] - experienced recurrence in approximately 2008 [...] Social History: Ms. Lance currently lives in [place], [place] with her and 17 year old [...] 12:05 PM EST) Triglyceride 72 <=149 mg/dL [facility] Comment: Reference Range: Normal triglycerides: ??<150 mg/dL Borderline high: ??150-199 mg/dL High: ??200-499 mg/dL Very high: ??>kz=277 mg/dL JADON 2001; 28519):[id number] Blood specimen (specimen) 05/18/2011 12:05 PM EST 05/18/2011 12:12 PM EST Narrative Resulting Agency Comment Spec In Lab Zahc Paulson MD CHEMISTRY ORDERABLES Performing Organization Address [facility] de Phone Number [facility] * IgG 4 (05/18/2011 12:05 PM EST) IgG 4 14.8 4.0 - 86.0 mg/dL [facility] Comment: Test Performed by [employer] [facility], [address] [place], [place] Deandre Dominguez M.D., Ph.D., Director of Laboratories , [place] [id number] Blood specimen (specimen) 05/18/2011 12:05 PM EST 05/18/2011 2:37 PM EST Narrative Resulting Agency Comment Spec In Lab Zach Paulson MD IMMUNOLOGY ORDERABLE S Performing Organization Address City/[facility] Co de Phone Number [facility] * IgA (05/18/2011 12:05 PM EST) IgA 215 70 - 400 mg/dL [facility] Blood specimen (specimen) 05/18/2011 12:05 PM EST 05/18/2011 12:12 PM EST Narrative Resulting Agency Comment Spec In Lab Zach Paulson MD CHEMISTRY ORDERABLES Performing Organization Address [facility] Co de Phone Number [facility] * Tissue transglutaminase, IgA (05/18/2011 12:05 PM EST) TTG IgA Ab <4.0 <=3.9 u/ml [facility] Comment: Result Interpretation: Negative: ?<4 U/mL Weak Positive: ??4-10 U/mL Positive: ?>10 U/mL Blood specimen (specimen) 05/18/2011 12:05 PM EST 05/19/2011 8:11 AM EST Narrative Resulting Agency Comment Spec In Lab Zach Paulson MD IMMUNOLOGY ORDERABLE S Performing Organization Address [facility] de Phone Number MENDEL AVERY documented in this encounter Visit Diagnoses Diagnosis Pancreatitis- Primary Acute pancreatitis Pancreatitis Acute pancreatitis documented in this encounter Care Teams Attendance Clerk Relationship Specialty Start Date End Date Marlon Levine MD [address] [place] [address] PCP - General 02/16/10 06/19/12 documented as of this encounter
--- OUTSIDE RECORDS SUMMARY | 2024-01-19 17:59 | XMS_ITS | Encounter Summary ---
Author Organization [facility] Address [address] [place] [address] Care Team Providers Care Gluing Machine Adjuster Name Role Phone Marlon Levine MD Primary Care Provider [phone] Reason for Visit * Reason Onset Date Comments Results 07/28/2022 Encounter Details Date Type Department Care Team (Late st Contact Info) Description 07/28/2022 Telephone [facility] Hematology & Oncology - [facility] [address] [place], [place] [address] Dick Burt MS [address] [place], [place] [id number] Results Social History Tobacco Use Types Packs/Day [...] Encounter - Dick Burt MS - 07/28/2022 6515 EDT Spoke to Antonia regarding genetic test [...] on filedocumented in this encounter Care Teams Gluing Machine Adjuster Relationship Specialty Start Date End Date Marlon Levine MD [address] [place] [address] PCP - General 06/17/12 documented as of this encounter
--- OUTSIDE RECORDS SUMMARY | 2024-01-19 17:59 | XMS_ITS | Encounter Summary ---
Author Organization [facility] Address [address] [place] [address] Care Team Providers Care Cashier Associate Name Role Phone Marlon Levine MD Primary Care Provider [phone] Encounter Details Date Type Department Care Team (Latest Contact Info) Description 01/19/2018 14:57 EDT - 01/19/2018 23:59 EDT Hospital Encounter [address] [address] Unknown, Provider, Discharge Disposition: Home or Self [...] Code Departure Means Destination Home or Self Long Term documented in this encounter Plan of Treatment Not on file documented as of this encounter Visit Diagnoses Not on filedocumented in this encounter Care Teams Cashier Associate Relationship Specialty Start Date End Date Marlon Levine MD [address] [place] [address] PCP - General 06/17/12 documented as of this encounter
--- OUTSIDE RECORDS SUMMARY | 2024-01-19 17:59 | XMS_ITS | Encounter Summary ---
Author Organization [facility] Address [facility] [place] [address] Care Team Providers Care Front Facer Name Role Phone Marlon Levine MD Primary Care Provider [phone] Encounter Details Date Type Department Care Team (Latest Contact Info) Description 04/27/2011 3:49 PM EST - 04/30/2011 3:09 PM EST Hospital Encounter [address] [place] [id number] Deandre Tuttle MD [facility] [place] [address] Juvenal Lea MD [address] [place] [phone] Breast cancer Discharge Disposition: Home Social History [...] Dr. Levine Your inpatient doctors at [facility] were: Marshal Shen, Jayden, and Julius Medications: - If you still have RESIDUAL pains you can try ibuprofen or tylenol [id number]. Any new pain or worsening pain should [...] as of this encounter Progress Notes * oCnstance Araya III, MD - 04/30/2011 3:14 PM EST Hospital Medicine - Attending Day of Discharge Documentation Discharge diagnosis Pancreatitis Pleural effusion Secondary Issues Active Non-Hospital Problems Diagnoses ??? Breast cancer I have personally seen and examined the patient and they are ready for discharge. I spent <30 minutes (Day of Discharge Code 29704) involved in the final examination of the [...] Medicine Admitted 04/27/2011 Progress Note Team Pager #[phone] ID: Antonia Lance is a 40 y.o. female, hx breast CA, now with recent resolved pancreatitis and large bilateral pleural effusions Last 24 ?? Attempt thora, unsuccessful ?? No PTX on f/u CXR ?? O2 requirement unchanged ?? Scheduled tylenol and ibuprofen Subjective ?? Feeling much better ?? Appetite returning, drinking clears w/o c/o ?? Not needing operations advisor ?? Still with pain around site of [...] PHOS -- -- 2.6 Medications ??? DISCONTD: PLANT BREEDER SCIENTIST [place] ??? magnesium sulfate 2 g [...] DISCONTD: HYDROmorphone ??? DISCONTD: naloxone ??? DISCONTD: PLANT BREEDER SCIENTIST [place] Microbiology ?? none Imaging / Procedures CXR - no PTX. Effusions still prominent Assessment & Plan 40 y/o female, previously healthy, with recent admission for pancreatitis, and unresolved pain. Overall much better. Will d/c magallon, attempt advance diet. D/c PLANT BREEDER SCIENTIST. Hope can get rid of any need [...] Medicine Admitted 04/27/2011 Progress Note Team Pager #[phone] ID: Antonia Lance is a 40 y.o. female, hx breast CA, now with recent resolved pancreatitis and large bilateral pleural effusions Last 24 ?? Admit medicine ?? CT chest showed no PE, but large bilat effusions seen ?? O2 requirement unchanged ?? 0.9 mg dilaudid PLANT BREEDER SCIENTIST used overnight Subjective ?? Feeling less groggy [...] (04/28/11 0400) ??? HYDROmorphone ??? naloxone ??? PLANT BREEDER SCIENTIST [place] Microbiology ?? none Imaging / [...] 40 y/o male presents as transfer from [facility] for unresolving abd pain after pancreatitis. Pt originally presented 04/21, having had abd pain for 2 wks. Originally thought in nature, with neg pelvic w/u. Upon admission, found lipase 53k, and treated for pancreatitis. Pain control and IVFand antiemetics given. Pt very sensitive to narcotics, requiring reversal with narcan after apneic.Osseo improved in coming days, with resolving lipase. [...] chemoRT x2 - all nodes neg - ER/LA neg, Her2/cynthia neg - adjuvant CMF x6 [...] newbecause previously high 90s on RA at [facility], and tachycardia, though no evidence of DVT [...] Patient Positioning: Sitting upright. Hand Hygiene: The neuropsychology division chief did perform proper hand hygiene prior to [...] 40 y/o male presents as transfer from [facility] for unresolving abd pain after pancreatitis. Pt originally presented 04/21, having had abd pain for 2 wks. Originally thought in nature, with neg pelvic w/u. Upon admission, found lipase 53k, and treated for pancreatitis. Pain control and IVFand antiemetics given. Pt very sensitive to narcotics, requiring reversal with narcan after apneic.Osseo improved in coming days, with resolving lipase. [...] Course: Pancreatitis -- The patient's data from [facility] were reviewed. Lipase was rechecked and was normal. Itseemed the patient's pancreatitis had resolved after appropriate management at [facility]. The etiology remains uncertain, as there was [...] fluid resuscitation and inflammatory state (all at [facility]). Bedside thoracentesis was attempted but was unsuccessful [...] Dr. Levine Your inpatient doctors at [facility] were: Marshal Shen, Jayden, and Julius Medications: - If you still have RESIDUAL pains you can try ibuprofen or tylenol [id number]-[id number]. Any new pain or worsening pain should prompt re-evaluation by a doctor. General Instructions None Provider Contact Information: MARLON LEVINE MD [address] [facility] [address] (phone) [phone] (fax) Signed: REYNALDO APPLE MD Discharged: 04/30/2011 [...] is nearly WNL(just slightly elevated). Spoke with [employer] CONTROL OFFICER who will weigh pt today. Because pt [...] day. She has been using her Dilaudid PLANT BREEDER SCIENTIST. However, the PLANT BREEDER SCIENTIST's power turned off and the information was [...] of sharp pain. Pt has a Dilaudid PLANT BREEDER SCIENTIST and has only used 0.5 mg so [...] 04/28/2011 6:05 AM EST CARDIAC ENZYMES ([facility]) Routine 04/28/2011 6:05 AM EST CBC (WITH DIFF) Routine 04/28/2011 6:05 AM EST BASIC METABOLIC PANEL Routine 04/28/2011 6:[address] CHEST PULMONARY EMBOLISM W CONTRAST STAT 04/27/2011 9:54 PM EST CARDIAC ENZYMES ([facility]) Routine 04/27/2011 9:03 PM EST LIPASE Routine [...] EST Juvenal Lea MD CHEMISTRY ORDERABLES [facility] * (ABNORMAL) CBC (with Diff) (04/29/2011 7:00 [...] Dehydrogenase (04/28/2011 2:42 PM EST) Pathologist [facility] Lactate Dehydrogenase 142 110 - 220 unit/L [facility] Blood specimen (specimen) 04/28/2011 2:42 PM EST 04/28/2011 2:48 PM EST Juvenal Lea MD CHEMISTRY ORDERABLES Performing Organization Address [facility] Phone Number [facility] * (ABNORMAL) Protein, total (04/28/2011 2:42 PM EST) Pathologist [facility] Protein, Total 5.9(L) 6.4 - 8.3 gm/dL [facility] Blood specimen (specimen) 04/28/2011 2:42 PM EST 04/28/2011 2:48 PM EST Juvenal Lea MD CHEMISTRY ORDERABLES Performing Organization Address [facility] de Phone Number [facility] * Cytopathology Non-Gynecological (04/28/2011 12:35 PM EST) AP Specimen 04/28/2011 12:3 5 PM EST 04/28/2011 12:35 PM EST Narrative [facility] - 04/28/2011 12:35 PM EST Specimen requisition ordered. ??Separate Pathology report to follow Juvenal Lea MD PATHOLOGY/CYTOLOGY O RDERABLES Performing Organization Address [facility] Phone Number [facility] * CARDIAC ENZYMES (04/28/2011 6:05 AM EST) Pathologist [facility] Troponin-T <0.03 <=0.03 ng/mL [facility] Comment: 0.03 ng/mL: Represents the 99th percentile upper reference limit for normals. >0.03 ng/mL: Elevated cardiac troponin T level indicative of myocardial damage. Diagnosis of acute, evolving or recent [place] requires a typical rise and gradual fall [...] consensus document of the Joint Society of Cardiology/[place] College of Cardiology Committee for the redefinition of myocardial infarction. Journal of the [place] College of Cardiology 2000; 36: 959-969] Creatine [...] 9:03 PM EST) Troponin-T <0.03 <=0.03 ng/mL [employer] Comment: 0.03 ng/mL: Represents the 99th percentile upper reference limit for normals. >0.03 ng/mL: Elevated cardiac troponin T level indicative of myocardial damage. Diagnosis of acute, evolving or recent [place] requires a typical rise and gradual fall [...] consensus document of the Joint Society of Cardiology/[place] College of Cardiology Committee for the redefinition of myocardial infarction. Journal of the [place] College of Cardiology 2000; 36: 959-969] Creatine Kinase 34 0 - 160 unit/L [employer] Blood specimen (specimen) 04/27/2011 9:03 PM EST 04/27/2011 9:20 PM EST Juvenal Lea MD CHEMISTRY ORDERABLES [facility] * Lipase (04/27/2011 9:03 PM EST) Lipase 19 0 - 60 unit/L [facility]ERN[facility] MILLENNIUM Blood specimen (specimen) 04/27/2011 9:03 PM EST 04/27/2011 9:20 PM EST Juvenal Lea MD CHEMISTRY ORDERABLES Performing Organization Address City/[facility]/ZIP Co de Phone Number MENDEL COLLAZOIUM [...] Absolute 0.06(H) 0.00 - 0.05 x10(3)/mc L [facility] Blood specimen (specimen) 04/27/2011 8:50 PM EST 04/27/2011 9:20 PM EST Juvenal Lea MD HEMATOLOGY ORDERABLE S Performing Organization Address [facility] Phone Number [facility] * (ABNORMAL) D-Dimer, Quantitative (04/27/2011 8:50 PM EST) D-Dimer 3685(H) 0 - 500 FEU ng/ml [facility] Comment: The D-Dimer assay is used to [...] MD HEMATOLOGY ORDERABLE S Performing Organization Address [facility] Number [facility] * APTT (04/27/2011 8:50 PM EST) Partial Thromboplastin Time 33 25 - 35 sec [facility] Comment: Recommended therapeutic PTT range for full dose unfractionated heparin is 80-114 seconds. Blood specimen (specimen) 04/27/2011 8:50 PM EST 04/27/2011 9:20 PM EST Juvenal Lea MD HEMATOLOGY ORDERABLE S Performing Organization Address [facility] Phone Number [facility] * (ABNORMAL) Prothrombin Time (04/27/2011 8:50 PM EST) Prothrombin Time 15.5(H) 12.3 - 14.7 sec [facility] Comment: [facility] Transfusion Committee Guidelines: INR less than 2.0, [...] MD HEMATOLOGY ORDERABLE S Performing Organization Address [facility] de Phone Number [facility] * (ABNORMAL) [...] Lea MD CHEMISTRY ORDERABLES Performing Organization Address [facility] Phone Number [facility] MILLENNIUM * Phosphorus (04/27/2011 8:50 PM EST) Phosphorus 2.6 2.5 - 4.5 mg/dL [facility] MILLENNIUM Blood specimen (specimen) 04/27/2011 8:50 PM EST 04/27/2011 9:20 PM EST Juvenal Lea MD CHEMISTRY ORDERABLES Performing Organization Address [facility] de Phone Number [facility]ERJ[facility] MILLENNI[facility] * (ABNORMAL) [...] scoliotic curvature to spine rightward. There are mukhkypb-zy-lkapi bilateral effusions, left greater than right. There [...] Mild scoliotic curvature to spine rightward. Thereare hqttxxrc-iq-shyqv bilateral effusions, left greater than right. There [...] Total Hemoglobin (in gm/dL) ?Based on [facility] Hematology ranges: ?Age ?Reference Range Less than [...] (Bezet) 419 ms MUSE SYSTEM Calculated P [place] 60 degrees MUSE SYSTEM Calculated R [place] 67 degrees MUSE SYSTEM Calculated T [place] 52 degrees MUSE SYSTEM INTERPRETATION Sinus rhythm with short LA T wave abnormality, consider anterior ischemia Abnormal [...] Urine Dipstick Clear Clear CERNER MILLENNIUM Specific [place] Urine Automated 1.013 1.002 - 1.030 CERNER MILLENNIUM Color, Urine Dipstick Yellow Yellow CERNER MILLENNIUM RBC, Urine Not Present 0 - 4 CERNER MILLENNIUM WBC, Urine 1 0 - 5 /HPF CERNER MILLENNIUM Urine specimen (specimen) 04/27/2011 6:11 PM EST 04/27/2011 6:26 PM EST Juvenal Lea MD URINE ORDERABLES Performing Organization Address City/[facility]/ZIP Co de Phone Number CERNER [facility]NIUM * FILM LIBRARY- STORAGE ONLY CT ABDOMEN & PELVIS (04/24/2011 7:53 PM EST) 04/24/2011 7:53 PM EST Narrative RAD - 08/20/2013 1:45 PM EDT This is a non-reportable exam. Procedure Note Fuentes Puente - 08/20/2013 This is a non-reportable exam. Constance Rahman MD IM FILM LIBRARY ORD ERABLES [facility] [address] [place] [address] documented in this encounter Visit Diagnoses Diagnosis [...] EST 40 mg HYDROmorphone (DILAUDID) 1 mg/mL PLANT BREEDER SCIENTIST 30 mL Intravenous, PLANT BREEDER SCIENTIST ONLY, Starting on Mon04/27/11 at 1830, Until [...] 100 mg, Subcutaneous, ONCE, 1 dose, On [facility] 04/28/11 at 1315, Routine Given 04/28/2011 1:15 [...] RN) documented in this encounter Care Teams Front Facer Relationship Specialty Start Date End Date Marlon Levine MD [address] [place] [address] PCP - General 02/16/10 06/19/12 documented as of this encounter
--- OUTSIDE RECORDS SUMMARY | 2024-01-19 17:59 | XMS_ITS | Encounter Summary ---
Author Organization [facility] [place] [address] Care Team Providers Care Warehouse Laborer Name Role Phone Marlon Levine MD Primary Care Provider [phone] Encounter Details Date Type Department Care Team (Late st Contact Info) Description 04/01/2005 Orders Only Hematology [place] [address] Ana Lilia Grubbs MD [facility] [address] [place] [address] Social History Tobacco Use Types Packs/Day Years [...] 9:06 AM EST) Surgical Pathology Report [id number] ? Location: The signing pathologist has (i) examined the relevant preparation(s) for the specimen(s) and (ii) rendered or confirmed the diagnosis(es). . ?Pathology Surgical Pathology Final Report Clinical Information Specimen Submitted: CONSULTATION CASE A - 2 slides labeled [id number], collection date 02/15/05. B - 86 slides labeled [id number], collection date 03/02/05. C - 84 slides labeled [id number], collection date 03/10/05. [id number] Report to: Alfred Lakhani MD [facility] Surgical Pathology [address] ??[address] Gross Description [facility] pathology slide(s) are reviewed. ??Refer to Diagnosis and Specimen Submitted for specific case information. For the full text of the [facility] report(s) please refer to Non-DH Documentation Pathology in the Clinical Information System (CIS). Microscopic Description Slides reviewed, microscopic description not recorded. Diagnosis CONSULTATION CASE A - Needle biopsies: ?Left breast. ?Diagnosis: ?Normal breast with focal lymphocytic infiltrate ?Microcalcifica tions: ??NA Specimen (s): ? B - Left breast, excision; sentinel and ? non-sentnel lymph nodes [id number]) ?C - Left breast, re-excision [id number]) Histologic Type: ?Infiltrating ductal carcinoma Tumor Grade: ?High (High, Intermediate, Low) Sllidx-Tzmcf-Lgx hardson Score: ??8 ?? Tubular Differentiation: ? [...] Ca (distance, RM): ??Final margins >1.0 cm (-[facility]64050) ?? DCIS (distance, RM): ? Final margins >1.0 cm ([facility]54545) Angiolymphatic Invasion: ?Identified (-[address] [place] [address] A28) . Diagnosis Perineural Invasion: ?Not identified Nipple Involvement: ? NA Correlation Biopsies/Cytolog y ?? NA Other findings: ? Fibrocystic disese witb benign ductal ? hyperplasia, adenosis, apocrine metaplasia ?and cysts Axillary lymph nodes: Total no. of nodes sampled: ?10 ??No. of non-sentinel nodes: ?1 (Specimen(s) -04 D) ?No. positive for carcinoma: 0 (H&E only) ??No. of sentinel nodes: ?9 (Specimen(s) -[id number] C,E,F,G,H,I,J) ?No. positive for carcinoma: 0 (H&E only) Estrogen/Progest in receptors: ?? Performed on block [id number] A27 ?? ER immunoreactivity : ? Negative by report ?? IN immunoreactivity : ? Negative by report HER2/cynthia [...] Lilia Grubbs MD PATHOLOGY/CYTOLO GY ORDERABLES [facility] documented in this encounter Visit Diagnoses Not on filedocumented in this encounter Care Teams Warehouse Laborer Relationship Specialty Start Date End Date Marlon Levine MD [address] [place] [address] PCP - General 06/20/12 documented as of this encounter
--- OUTSIDE RECORDS SUMMARY | 2024-01-19 17:59 | XMS_ITS | Encounter Summary ---
Author Organization [facility] Address [facility] [place] [address] Care Team Providers Care Head Kiln Operator Name Role Phone Marlon Levine MD Primary Care Provider [phone] Encounter Details Date Type Department Care Team (Latest Contact Info) Description 05/30/2011 1:54 PM EST - 05/30/2011 7:06 PM EST Hospital Encounter Gastroenterology at [facility] [place] [address] Jag Tyler MD [facility] [place] [address] Discharge Disposition: Home Social History Tobacco Use [...] Monday, 8:00 am to 5:00pm, . The alumnae secretary will need your name, medical problem, and date of the bronchoscopy. After 5pm call [phone] and ask for the pulmonary doctor transportation lead. * Patient Instructions* Jag Tyler MD - 05/30/2011 5:33 PM EST Please see Recommendations in the Provation procedure report which is documented in the procedural note in E-[facility]. * Attachments The following attachments cannot be sent through Care Everywhere. * UPPER GI ENDOSCOPY: WHAT TO EXPECT AT HOME (BERMUDIAN) documented in this encounter Medications at Time [...] Tyler MD - 05/30/2011 5:18 PM EST [facility] [place] Patient Name: Antonia Lance : [id number] MR#: [id number] Case Date: 05/30/2011 Surgeon: Surgeon(s) and Role: [...] (05/30/2011 4:42 PM EST) UPPER ENDOSCOPIC ULTRASOUND [facility] Endoscopy Patient Name: Antonia Lance ? Procedure Date: 05/30/2011 4:42 PM ? Date of : 1970 ? Age: 40 ? Order #: [id number] ? Procedure: ? Upper EUS Indications: ? Acute pancreatitis, f/up acute ? pancreatitis Providers: ? Jag Tyler MD, Martha Nava, ? RN, Ivory Eubanks, Community Engagement Representative Referring : ?Marlon Levine MD, Roxana Ojeda [...] nausea) documented in this encounter Care Teams Head Kiln Operator Relationship Specialty Start Date End Date Marlon Levine MD [address] [place] [address] PCP - General 02/16/10 06/19/12 documented as of this encounter
--- OUTSIDE RECORDS SUMMARY | 2024-01-19 17:59 | XMS_ITS | Encounter Summary ---
Author Organization [facility] [place] [address] Care Team Providers Care Stuntman Name Role Phone Marlon Levine MD Primary Care Provider + [phone] Encounter Details Date Type Department Care Team (Late st Contact Info) Description 06/28/2006 Orders Only [facility] [place] [id number] Angel Rosales MD OBSTETRICS & GYNECOLOGY Social [...] 11:47 AM EDT) Surgical Pathology Report [id number] ? Location: The signing pathologist has (i) [...] tissue is bisected and entirely submitted. ??A underwriting service representative section of the larger portion [...] on filedocumented in this encounter Care Teams Stuntman Relationship Specialty Start Date End Date Marlon Levine MD [address] [place] [address] PCP - General 06/20/12 documented as of this encounter
--- OUTSIDE RECORDS SUMMARY | 2024-01-19 17:59 | XMS_ITS | Encounter Summary ---
Author Organization [facility] Address [facility] [place] [address] Care Team Providers Care Butcher All Round Name Role Phone Marlon Levine MD Primary Care Provider [phone] Reason for Visit * Reason Onset Date Comments Other 10/07/2010 appt with nutrit ionist Encounter Details Date Type Department Care Team (Late st Contact Info) Description 10/07/2010 Telephone Hematology Oncology at [address] [address] John Beltran MD [facility] [place] [address] Other (appt with manager transfusion) Social History Tobacco Use Types Packs/Day Years [...] does not want and appt with our manager transfusion. She decided to keep a diary on her own and her and can see how she is doing at her 4 m f/u. documented in this encounter Plan of Treatment Not on file documented as of this encounter Visit Diagnoses Not on filedocumented in this encounter Care Teams Butcher All Round Relationship Specialty Start Date End Date Marlon Levine MD [address] [place] [address] PCP - General 02/16/10 06/19/12 documented as of this encounter
--- OUTSIDE RECORDS SUMMARY | 2024-01-19 17:59 | XMS_ITS | Encounter Summary ---
Author Organization [facility] [place] [address] Care Team Providers Care Hooker Machine Tender Name Role Phone Unavailable Primary Care Provider Unavailabl e Encounter Details Date Type Department Care Team (Late st Contact Info) Description 02/10/2010 1:30 PM EST Follow-Up [place] [address] [facility] [address] [place], [place] [address] Social History Tobacco Use Types Packs/Day Years [...]
--- OUTSIDE RECORDS SUMMARY | 2024-01-19 17:59 | XMS_ITS | Encounter Summary ---
Author Organization [facility] Address [facility] [place] [address] Care Team Providers Care Deputy Juvenile Officer Name Role Phone Marlon Levine MD Primary Care Provider + [phone] Encounter Details Date Type Department Care Team (Late st Contact Info) Description 04/25/2011 Orders [place] [address] cJ Carpenter MD [facility] [place] [address] Social History Tobacco Use Types Packs/Day Years [...] Carpenter MD IMG FILM LIBRARY ORD ERABLES [facility] [address] [facility] [place] [address] documented in this encounter Visit Diagnoses Not on filedocumented in this encounter Care Teams Deputy Juvenile Officer Relationship Specialty Start Date End Date Marlon Levine MD [address] [place] [address] PCP - General 02/16/10 06/19/12 documented as of this encounter
--- OUTSIDE RECORDS SUMMARY | 2024-01-19 17:59 | XMS_ITS | Encounter Summary ---
[place] [address] Care Team Providers Care Spanish Tutor Name Role Phone Marlon Levine MD Primary Care Provider [phone] Encounter Details Date Type Department Care Team (Late st Contact Info) Description 04/21/2010 2:00 PM EST Procedure visit [place] [address] Social History Tobacco Use Types Packs/Day Years Used Date Smoking Tobacco: Never Assessed Sex and Gender Information Value Date Recorded Sex Assigned at Not on file Gender Identity Not on file Sexual Orientation Not on file documented as of this encounter Plan of Treatment Not on file documented as of this encounter Visit Diagnoses Not on filedocumented in this encounter Care Teams Spanish Tutor Relationship Specialty Start Date End Date Marlon Levine MD [address] [place] [address] PCP - General 02/16/10 06/19/12 documented as of this encounter
--- OUTSIDE RECORDS SUMMARY | 2024-01-19 17:59 | XMS_ITS | Encounter Summary ---
Author Organization [facility] Address [facility] [place] [address] Care Team Providers Care Mobility Specialist Name Role Phone Marlon Levine MD Primary Care Provider [phone] Encounter Details Date Type Department Care Team (Late st Contact Info) Description 06/08/2010 2:30 PM EDT Follow-Up Hematology Oncology at [address] [phone] John Beltran MD [facility] [place] [address] Discharge Disposition: Home Social History Tobacco Use [...] filedocumented in this encounter Care Teams Mobility Specialist Relationship Specialty Start Date End Date Marlon Levine MD [address] [place] [address] PCP - General 02/16/10 06/19/12 documented as of this encounter
--- OUTSIDE RECORDS SUMMARY | 2024-01-19 17:59 | XMS_ITS | Encounter Summary ---
Author Organization [facility] Address [facility] [place] [address] Care Team Providers Care Director Of Math Name Role Phone Marlon Levine MD Primary Care Provider + [phone] Encounter Details Date Type Department Care Team (Late st Contact Info) Description 04/21/2010 2:35 PM EST Follow-[place] [address] Margarita Joe MD [facility] [place] [address] Discharge Disposition: Home Social History Tobacco Use [...] on filedocumented in this encounter Care Teams Director Of Math Relationship Specialty Start Date End Date Marlon Levine MD [address] [place] [address] PCP - General 02/16/10 06/19/12 documented as of this encounter
--- OUTSIDE RECORDS SUMMARY | 2024-01-19 17:59 | XMS_ITS | Encounter Summary ---
Author Organization [facility] Address [address] [place] [address] Care Team Providers Care Account Officer Name Role Phone Marlon Levine MD Primary Care Provider [phone] Encounter Details Date Type Department Care Team (Late st Contact Info) Description 10/08/2014 Results Only [facility] [phone] Mary Alice Ruby MD [address] [place] [address] [place] [address] Social History Tobacco Use Types Packs/Day Years [...] ? BILLIE JENNINGS ? Accession #: ? [id number] ? : ? 1970 (Age: 44) ??F [...] 33,35,39,45,51,52, 56,58,59,66, and 69 is detected by global expansion sales director mediated amplification. High and intermediate risk HPV [...] confirmed the above diagnosis. End of Report [facility] 10/08/2014 10/09/2014 Mary Alice Ruby MD PATHOLOGY ORDERABLES [facility] [address] [place] [address] documented in this encounter Visit Diagnoses Not on filedocumented in this encounter Care Teams Account Officer Relationship Specialty Start Date End Date Marlon Levine MD [address] [place] [address] PCP - General 06/17/12 documented as of this encounter
--- OUTSIDE RECORDS SUMMARY | 2024-01-19 17:59 | XMS_ITS | Encounter Summary ---
Author Organization [facility] [place] [address] Care Team Providers Care School Health Aide Name Role Phone Marlon Levine MD Primary Care Provider + [phone] Encounter Details Date Type Department Care Team (Late st Contact Info) Description 04/21/2011 Orders Only [place] [address] Jc Carpenter MD [facility] [place] [address] Social History Tobacco Use Types Packs/Day Years [...] Carpenter MD G FILM LIBRARY ORD ERABLES [facility] [address] [place] [address] documented in this encounter Visit Diagnoses Not on filedocumented in this encounter Care Teams School Health Aide Relationship Specialty Start Date End Date Marlon Levine MD [address] [place] [address] PCP - General 02/16/10 06/19/12 documented as of this encounter
--- OUTSIDE RECORDS SUMMARY | 2024-01-19 17:59 | XMS_ITS | Encounter Summary ---
Author Organization [facility] Address [address] [place] [address] Care Team Providers Care Pearl Glue Operator Name Role Phone Marlon Levine MD Primary Care Provider [phone] Reason for Visit * Reason Comments Pleurisy left anterior lower ribsIt is bulging and it cramps up onset 1 week ago intermittent Encounter Details Date Type Department Care Team (Late st Contact Info) Description 06/17/2012 16:02 EDT - 06/17/2012 20:05 EDT Emergency [facility] Emergency Department - [address] [address] Orion Warner MD [address] [place] [address], Level [address] [place] [address] Emergency, MD Ghulam Musculoskeletal chest [...] * MUSCULOSKELETAL CHEST PAIN: AFTER YOUR VISIT (ANGUILLAN) documented in this encounter Discharge Disposition Disposition Code Departure Means Destination Home or Self Care documented in this encounter ED Notes * Jacbo Cui RN - 06/17/2012 1811 EDT Unsuccessful attempts made by this author and 2 ED techs to insert PIV. GARDENER at bedside at this time * Orion [...] IV nurse intravenous access was unobtainable. Chest [id number]-yvk-[id number] with radiologist, no acute cardiopulmonary process, and numerous clips presentsecondary to bilateral mastectomies Laboratory ukhtv-d-dhzxj not elevated. Patient with reproducible musculoskeletal chest [...] encounter Miscellaneous Notes * Scanned Note-Null - CIGAR MAKING MACHINE OPERATOR, SCAN 2 - 06/21/2012 0985 EDT documented in this encounter Plan of [...] PF4 ORD ERABLES [facility] [address] [place] [address] * SMEAR REVIEW (06/17/2012 17:05 EDT) Smear scan only: Slide was examined by a technologist to verify the WBC and/or platelet count. [facility] 06/17/2012 17:0 5 EDT 06/17/2012 18:47 EDT Orion Warner MD HEMATOLOGY & PF4 ORD ERABLES Performing Organization Address [facility] Co de Phone Number [facility] [address] [place] [address] * HEMAGRAM (06/17/2012 17:05 EDT) Pathologist [facility] WBC 5.91 4.0 - 12.4 K/cmm [...] & PF4 ORD ERABLES Performing Organization Address [facility] Co de Phone Number [facility] [address] [place] [address] * D-DIMER (06/17/2012 17:05 EDT) Pathologist [facility] D-Dimer <200 <230 ng/mL [facility] Comment:CUTOFF VALUE FOR THE EXCLUSION OF DVT and PE: 230 ng/mL D-dimer units 06/17/2012 17:0 5 EDT 06/17/2012 18:47 EDT Orion Warner MD HEMATOLOGY & PF4 ORD ERABLES Performing Organization Address City/[facility] Co de Phone Number [facility] [address] [place] [address] * PROTIME (06/17/2012 17:05 EDT) Pathologist [facility] Pro Time 10.5 9.5 - 13.1 secs [facility] I.N.R. 0.9 0.9 - 1.1 Ratio [facility] Comment: Moderate Intensity Coumadin INR = 2.0-3.0 Adjustments in anticoagulant therapy dose should be based upon the INR and NOT the Pro Time. Blood specimen (specimen) 06/17/2012 17:05 EDT 06/17/2012 18:47 EDT Orion Warner MD HEMATOLOGY & PF4 ORD ERABLES Performing Organization Address [facility] de Phone Number [facility] [address] [place] [address] * CREATININE (06/17/2012 17:05 EDT) Creatinine 0.56 0.52 - 1.04 mg/dl [facility] Comment:Slight hemolysis GFR, Calculated >60 >60 ml/min/1.7 3m2 [facility] Blood specimen (specimen) 06/17/2012 17:05 EDT 06/17/2012 18:47 EDT Orion Warner MD CHEMISTRY & BLOOD GA S ORDERABLES Performing Organization Address [facility] Phone Number [facility] [address] [place] [address] * BUN (06/17/2012 17:05 EDT) BUN 19 10 - 26 mg/dl [facility] Comment: Slight hemolysis Results may be affected due to hemolysis. Blood specimen (specimen) 06/17/2012 17:05 EDT 06/17/2012 18:47 EDT Orion Warner MD CHEMISTRY & BLOOD GA S ORDERABLES Performing Organization Address [facility] Phone Number [facility] [address] [place] [address] * ELECTROLYTES (06/17/2012 17:05 EDT) Sodium 145 [...] BLOOD GA S ORDERABLES Performing Organization Address [facility] Co de Phone Number [facility] [address] [place] [address] * GLUCOSE, SERUM (06/17/2012 17:05 EDT) Glucose, Serum 79 70 - 100 mg/dl [facility] Comment: Slight hemolysis Results may be affected due to hemolysis. Blood specimen (specimen) 06/17/2012 17:05 EDT 06/17/2012 18:47 EDT Orion Warner MD CHEMISTRY & BLOOD GA S ORDERABLES Performing Organization Address [facility] Phone Number [facility] [address] [place] [address] documented in this encounter Visit Diagnoses Diagnosis [...] 06/17/2012 documented in this encounter Care Teams Pearl Glue Operator Relationship Specialty Start Date End Date Marlon Levine MD [address] [place] [address] PCP - General 06/17/12 documented as of this encounter
--- OUTSIDE RECORDS SUMMARY | 2024-01-19 17:59 | XMS_ITS | Encounter Summary ---
[place] [address] Care Team Providers Care Shorthand Teacher Name Role Phone Unavailable Primary Care Provider [...]
--- OUTSIDE RECORDS SUMMARY | 2024-01-19 17:59 | XMS_ITS | Encounter Summary ---
Author Organization [facility] [place] [address] Care Team Providers Care Deck Molder Name Role Phone Marlon Levine MD Primary Care Provider + [phone] Encounter Details Date Type Department Care Team (Late st Contact Info) Description 04/21/2010 9:30 AM EST Follow-Up Neurology at [facility] [place] [address] [facility] [place] [address] Social History Tobacco Use Types Packs/Day Years Used Date Smoking Tobacco: Never Assessed Sex and Gender Information Value Date Recorded Sex Assigned at Not on file Gender Identity Not on file Sexual Orientation Not on file documented as of this encounter Plan of Treatment Not on file documented as of this encounter Visit Diagnoses Not on filedocumented in this encounter Care Teams Deck Molder Relationship Specialty Start Date End Date Marlon Levine MD [address] [place] [address] PCP - General 02/16/10 06/19/12 documented as of this encounter
--- OUTSIDE RECORDS SUMMARY | 2024-01-19 17:59 | XMS_ITS | Encounter Summary ---
Author Organization [facility] [place] [address] Care Team Providers Care Proof Clerk Name Role Phone Marlon Levine MD Primary Care Provider + [phone] Reason for Visit * Reason Comments Follow-up Encounter Details Date Type Department Care Team (Late st Contact Info) Description 04/15/2011 11:00 AM EST Follow-[place] [address] Ana Lilia Soria BALE TIE MACHINE OPERATOR [facility] [place] [address] Breast cancer (Primary Dx) Discharge Disposition: Home [...] Ten lymph nodes were negative. Thetumor was ER/DC-negative and HER2-negative. Antonia went on to adjuvant [...] metaplastic spindle cell features Tumor Grade: High Leylkb-Ypehc-Anxtsamwpq Score: 8 Tubular Differentiation: 3 Mitotic Rate: [...] Nipple Involvement: NA Correlation Biopsies/Cytology Needle bx [id number], 08/07/07. 2005-left breast excision [id number]. Other findings: NA Estrogen/Progestin receptors: Performed on block A4 ER immunoreactivity: Negative (see Diagnostic del toro*) DC immunoreactivity: Negative (see Diagnostic del toro*) HER2 negative [place] node excision was without evidence of metastatic [...] site documented in this encounter Care Teams Proof Clerk Relationship Specialty Start Date End Date Marlon Levine MD [address] [place] [address] PCP - General 02/16/10 06/19/12 documented as of this encounter
--- OUTSIDE RECORDS SUMMARY | 2024-01-19 17:59 | XMS_ITS | Referral Summary ---
Author Organization [facility] Address [address] [place] [address] Care Team Providers Care Yardage Tufting Machine Operator Name Role Phone Marlon Levine MD Primary Care Provider [phone] Allergies Active Allergy Reactions Criticality Noted Date [...] of Treatment Not on file Care Teams Yardage Tufting Machine Operator Relationship Specialty Start Date End Date Marlon Levine MD [address] [place] [address] PCP - General 06/17/12
--- OUTSIDE RECORDS SUMMARY | 2024-01-19 17:59 | XMS_ITS | Encounter Summary ---
Author Organization [facility] [place] [address] Care Team Providers Care Senior Business Development Manager Name Role Phone Marlon Levine MD Primary Care Provider + [phone] Encounter Details Date Type Department Care Team (Late st Contact Info) Description 01/23/2008 Orders Only [place] [address] Margarita Joe MD [facility] [place] [address] Social History Tobacco Use Types Packs/Day Years [...] 5:21 PM EDT) Surgical Pathology Report [id number] ? Location: [facility] The signing pathologist has (i) examined the [...] FISH. ??Direct analysis was performed using the Voyando Kit. ??Slide adequacy and signal enumeration were [...] date: ??01/31/08 ??HAB Verified by: ?Black DO, Kylie Mckenzie ?(Electronic Signature) ?Pathology Surgical Pathology Final [...] paraffin-embedded tissue sections are studied using the [employer] system technique with appropriate positive and negative controls. Block ? Antibody ?Result (Positive/Negative) A4 ? e-cadherin ? Positive in tumor. These immunohistochemical studies provide ancillary information and are used only in conjunction with standard diagnostic procedures. Diagnosis Specimen (s): ? 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 Tubular Differentiation: ? [...] ? NA Correlation Biopsies/Cytology ?? Needle bx [id number], 08/07/07. . Diagnosis ?2006-left breast excision S--911. Other findings: ? NA Estrogen/Progestin receptors: ?? Performed on block A4 ?? ER immunoreactivity: ? Negative (see Diagnostic del toro*) ?? NC immunoreactivity: ? Negative (see Diagnostic del toro*) [...] Joe MD PATHOLOGY/CYTOLOGY ORDERABLES Performing Organization Address City/State/[facility] Co de Phone Number [facility] documented in this encounter Visit Diagnoses Not on filedocumented in this encounter Care Teams Senior Business Development Manager Relationship Specialty Start Date End Date Marlon Levine MD [address] [place] [address] PCP - General 06/20/12 documented as of this encounter
--- OUTSIDE RECORDS SUMMARY | 2024-01-19 17:59 | XMS_ITS | Encounter Summary ---
Author Organization [facility] Address [address] [place] [address] Care Team Providers Care Stripping Cutter And Winder Name Role Phone Marlon Levine MD Primary Care Provider [phone] Reason for Visit * Reason Onset Date Comments Appointment Related 04/26/2022 Encounter Details Date Type Department Care Team (Late st Contact Info) Description 04/26/2022 Telephone [facility] Hematology & Oncology - [address] [address] Fcp, Provider, Appointment Related Social History Tobacco [...] on filedocumented in this encounter Care Teams Stripping Cutter And Winder Relationship Specialty Start Date End Date Marlon Levine MD [address] [place] [address] PCP - General 06/17/12 documented as of this encounter
--- OUTSIDE RECORDS SUMMARY | 2024-01-19 17:59 | XMS_ITS | Encounter Summary ---
Author Organization [facility] Address [address] [place] [address] Care Team Providers Care Associate Principal Name Role Phone Mralon Levine MD Primary Care Provider [phone] Encounter Details Date Type Department Care Team (Late st Contact Info) Description 01/19/2018 Results Only [facility] [phone] Anat Hawthorne, LITIGATION ATTORNEY ASSOCIATE [address] [facility] [address] [place] [address] Social History Tobacco Use Types Packs/Day Years [...] ? BILLIE JENNINGS ? Accession #: ? [id number] ? : ? 1970 (Age: 47) ??F ?Collect Date: ? 01/19/2018 ? Location: ? [facility] ? Receive Date: ? 01/23/2018 ? Provider: ANAT HAWTHORNE LITIGATION ATTORNEY ASSOCIATE Copy to: ? Final Report SPECIMEN ADEQUACY ? Satisfactory for Evaluation - transformation zone component present GENERAL CATEGORIZATION ? Epithelial Cell Abnormality INTERPRETATION ? Squamous Cell Abnormality - Atypical squamous cells, undetermined significance (ASC-US). EDUCATIONAL NOTES/RECOMMENDAT IONS ? [facility] recommends following ASCCP's 2012 Updated Consensus Guidelines for the Management of Abnormal Cervical Cancer Screening Tests and Cancer Precursors (JLGTD, 2013; 17(5):S1-S27). ??Consensus guidelines are available online at www.asccp.org. Previous Gynecologic Pathology: HSIL: [id number] DANTE II-III: 2016 Other: Additional clinical information: [...] types 16,18,31,33,35, 39,45,51,52,56,58 ,59,66, and 68 by oil pipe inspector mediated amplification. Comments Document reviewed and electronically signed by: ? System Interface ? Report date: 02/02/2018 By the signature above, the attending physician certifies that he/she has personally conducted a gross and/or microscopic examination of the described specimens and rendered or confirmed the above diagnosis. End of Report [facility] 01/19/2018 01/23/2018 Anat Hawthorne APRN PATHOLOGY ORDERAB LES [facility] [address] [place] [address] documented in this encounter Visit Diagnoses Not on filedocumented in this encounter Care Teams Associate Principal Relationship Specialty Start Date End Date Marlon Levine MD [address] [place] [address] PCP - General 06/17/12 documented as of this encounter
--- OUTSIDE RECORDS SUMMARY | 2024-01-19 17:59 | XMS_ITS | Encounter Summary ---
Author Organization [facility] Address [address] [place] [address] Care Team Providers Care Waterside Worker Name Role Phone Marlon Levine MD Primary Care Provider [phone] Encounter Details Date Type Department Care Team (Late st Contact Info) Description 03/02/2018 Results Only [facility]- [facility] [phone] Svetlana Cavanaugh MD [address] [place] [address] Social History Tobacco Use Types [...] ? BILLIE JENNINGS ? Accession #: ? [id number] ? : ? 1970 (Age: 47) ??F ? Collect Date: ? 03/02/2018 ? Location: ? [facility] ? Receive Date: ? 03/02/2018 ? Provider: SVETLANA CAVANAUGH MD Copy to: ANAT Jessica ROMY SPRING INTERN ? Final Pathologic Diagnosis: ENDOCERVIX, CURETTAGE: - [...] 03/03/2018 10:00 AM End of Report [facility] 03/02/2018 16:4 6 EST 03/02/2018 16:46 EST Svetlana Cavanaugh MD PATHOLOGY ORDERABLES [facility] [address] [place] [address] documented in this encounter Visit Diagnoses Not on filedocumented in this encounter Care Teams Waterside Worker Relationship Specialty Start Date End Date Marlon Levine MD [address] [phone] PCP - General 06/17/12 documented as of this encounter
--- OUTSIDE RECORDS SUMMARY | 2024-01-19 17:59 | XMS_ITS | Encounter Summary ---
Author Organization [facility] Address [address] [place] [address] Care Team Providers Care Landscape Designer Name Role Phone Marlon Levine MD Primary Care Provider [phone] Encounter Details Date Type Department Care Team (Late st Contact Info) Description 11/16/2015 Results Only [facility] [phone] Mary Alice Ruby MD [address] [place] [address] [place] [address] Social History Tobacco Use Types Packs/Day Years [...] ? BILLIE JENNINGS ? Accession #: ? [id number] ? : ? 1970 (Age: 45) ??F [...] Rosales 11/17/2015 10:42 AM End of Report [facility] 11/16/2015 8:48 EDT 11/17/2015 8:48 EDT Mary Alice Ruby MD PATHOLOGY ORDERABLES [facility] [address] [place] [address] documented in this encounter Visit Diagnoses Not on filedocumented in this encounter Care Teams Landscape Designer Relationship Specialty Start Date End Date Marlon Levine MD [address] [place] [address] PCP - General 06/17/12 documented as of this encounter
--- OUTSIDE RECORDS SUMMARY | 2024-01-19 17:59 | XMS_ITS | Encounter Summary ---
Author Organization [facility] Address [address] [place] [address] Care Team Providers Care Spray Maker Name Role Phone Marlon Levine MD Primary Care Provider [phone] Encounter Details Date Type Department Care Team (Late st Contact Info) Description 10/25/2019 Lab Requisition [facility] Pathology & [place] [address] Outr Resulting Lab, Provider Social History Tobacco [...] 6.3 - 8.2 g/dL 10/28/2019 12:23 EDT [facility] Albumin % 65.3 55.8 - 66.1 % 10/28/2019 12:23 EDT [facility] Alpha-1 % 5.3(H) 2.9 - 4.9 % 10/28/2019 12:23 EDT [facility] Alpha-2 % 9.4 7.1 - 11.8 % 10/28/2019 12:23 EDT [facility] Beta % 10.5 8.4 - 13.1 % 10/28/2019 12:23 EDT [facility] Gamma % 9.5(L) 11.1 - 18.8 % 10/28/2019 12:23 EDT [facility] SPEP Comment No apparent monoclonal protein seen on serum electrophoresis 10/28/2019 12:23 EDT [facility] Comment:See scanned/suppleme ntary report. Blood VENOUS BLOOD / Unknown 10/25/2019 12:21 EDT 10/25/2019 21:20 EDT Provider Outr Resulting Lab CHEMISTRY & BLOOD GAS ORDERABLES Performing Organization Address City/State/[place] Co de Phone Number [facility] [address] [place] [address] documented in this encounter Visit Diagnoses Not on filedocumented in this encounter Care Teams Spray Maker Relationship Specialty Start Date End Date Marlon Levine MD [address] [place] [address] PCP - General 06/17/12 documented as of this encounter
--- OUTSIDE RECORDS SUMMARY | 2024-01-19 17:59 | XMS_ITS | Encounter Summary ---
Author Organization [facility] Address [address] [place] [address] Care Team Providers Care Chick Sexer Name Role Phone Marlon Levine MD Primary Care Provider [phone] Encounter Details Date Type Department Care Team (Late st Contact Info) Description 01/05/2016 Results Only [facility]- [facility] [phone] Mary Alice Ruby MD [address] [place] [address] [place] [address] Social History Tobacco Use Types Packs/Day Years [...] ? BILLIE JENNINGS ? Accession #: ? [id number] ? : ? 1970 (Age: 45) ??F [...] (ASCP) 01/06/2016 11:37 AM End of Report [facility] 01/05/2016 10:1 3 EDT 01/06/2016 10:13 EDT Mary Alice Ruby MD PATHOLOGY ORDERABLES Performing Organization Address City/State/[facility] Co de Phone Number [facility] [address] [place] [address] documented in this encounter Visit Diagnoses Not on filedocumented in this encounter Care Teams Chick Sexer Relationship Specialty Start Date End Date Marlon Levine MD [address] [place] [address] PCP - General 06/17/12 documented as of this encounter
--- OUTSIDE RECORDS SUMMARY | 2024-01-19 17:59 | XMS_ITS | Encounter Summary ---
Author Organization [facility] Address [address] [place] [address] Care Team Providers Care Disability Liaison Officer Name Role Phone Marlon Levine MD Primary Care Provider [phone] Reason for Visit * Reason Comments Genetic Evaluation Telemedicine Video Visit Encounter Details Date Type Department Care Team (Late st Contact Info) Description 07/12/2022 12:00 EDT Telemedicine [facility] Hematology & Oncology - [facility] [address] [place], [place] [address] Zuleika Nash, MS [address] [place], [place] [address] Encounter for nonprocreative genetic counseling (Primary Dx); [...] negative. Antonia did have genetic testing at [facility] in 2005 for BRCA 1 and [...] recently started seeing dermatology. Antonia lives in [facility] and her medical care is through [facility]. I reviewed with Antonia and her sister options for extended genetic testing using a multi gene panel.Following a discussion of the risk benefits and limitations Antonia was interested in proceeding witha 47 gene Common hereditary cancer panel through [facility]. She requested that a saliva collection kit [...] breast documented in this encounter Care Teams Disability Liaison Officer Relationship Specialty Start Date End Date Marlon Levine MD [address] [place] [address] PCP - General 06/17/12 documented as of this encounter
--- OUTSIDE RECORDS SUMMARY | 2024-01-19 17:59 | XMS_ITS | Encounter Summary ---
Author Organization [facility] [place] [address] Care Team Providers Care Director Of Guidance Name Role Phone Marlon Levine MD Primary Care Provider [phone] Reason for Visit * Reason Comments Follow-up Encounter Details Date Type Department Care Team (Late st Contact Info) Description 10/06/2010 2:30 PM EDT Follow-Up Hematology Oncology at [address] [phone] Melissa Chacko, [address] [place] [address], [place] [id number] Breast cancer (Primary Dx) Discharge Disposition: Home [...] 3:05 PM EDT Hematology/[place]cology [place], [address] () - [phone] (fax) ESTABLISHED PATIENT EVALUATION: Problem List: 1. Cancer of the left breast, T2, N0, M0. A. Dx'd 01/29, s/p lumpectomy and ALND. Path-2.5-cm infiltrating ductal carcinoma, SBR score of 8. Final margins of resection were negative. Ten LNs were seen, all negative. ER/WY negative. HER2/cynthia negative. B. Four cycles of [...] There was no ALI or perineural invasion. ER/WY negative. HER2/cynthia negative by FISH. B. In [...] site documented in this encounter Care Teams Director Of Guidance Relationship Specialty Start Date End Date Marlon Levine MD [address] [place] [address] PCP - General 02/16/10 06/19/12 documented as of this encounter
--- OUTSIDE RECORDS SUMMARY | 2024-01-19 17:59 | XMS_ITS | Encounter Summary ---
Author Organization [facility] Address [facility] [place] [address] Care Team Providers Care Thoracic Surgeon Name Role Phone Marlon Levine MD Primary Care Provider [phone] Reason for Visit * Reason Comments Breast Cancer Encounter Details Date Type Department Care Team (Late st Contact Info) Description 03/01/2011 1:00 PM EST Follow-Up Hematology Oncology at [address] [phone] John Beltran MD [facility] [place] [address] Breast cancer (Primary Dx) Discharge Disposition: Home [...] negative. Ten LNs were seen, all negative. ER/OK negative. HER2/cynthia negative. B. Four cycles of [...] There was no ALI or perineural invasion. ER/OK negative. HER2/cynthia negative by FISH. B. In [...] feels well. 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 No areas of pain.Her [...] site documented in this encounter Care Teams Thoracic Surgeon Relationship Specialty Start Date End Date Marlon Levine MD [address] [place] [address] PCP - General 02/16/10 06/19/12 documented as of this encounter
--- OUTSIDE RECORDS SUMMARY | 2024-01-19 17:59 | XMS_ITS | Encounter Summary ---
Author Organization [facility] [place] [address] Care Team Providers Care Varnishing Unit Tool Setter Name Role Phone Marlon Levine MD Primary Care Provider [phone] Reason for Visit * Reason Onset Date Comments Other 05/23/2011 new symptoms Encounter Details Date Type Department Care Team (Late st Contact Info) Description 05/23/2011 [place] [phone] Natalie Tompkins RN Other (new symptoms) Social [...] on filedocumented in this encounter Care Teams Varnishing Unit Tool Setter Relationship Specialty Start Date End Date Marlon Levine MD [address] [place] [address] PCP - General 02/16/10 06/19/12 documented as of this encounter
--- OUTSIDE RECORDS SUMMARY | 2024-01-19 17:59 | XMS_ITS | Clinical Summary ---
Author Organization [facility] Address [address] [place] [address] Care Team Providers Care E Commerce Marketing Manager Name Role Phone Marlon Levine MD Primary Care Provider [phone] Allergies Active Allergy Reactions Criticality Noted Date [...] (1 - 2023- season) 2022 Care Teams E Commerce Marketing Manager Relationship Specialty Start Date End Date Marlon Levine MD [address] [place] [address] PCP - General 06/17/12
--- OUTSIDE RECORDS SUMMARY | 2024-01-19 17:59 | XMS_ITS | Encounter Summary ---
Author Organization [facility] Address [address] [place] [address] Care Team Providers Care Manager Hardware Name Role Phone Marlon Levine MD Primary Care Provider [phone] Encounter Details Date Type Department Care Team (Late st Contact Info) Description 10/13/2015 Results Only [facility] [phone] Mary Alice Ruby MD [address] [place] [address] [place] [address] Social History Tobacco Use Types Packs/Day Years [...] ? BILLIE JENNINGS ? Accession #: ? [id number] ? : ? 1970 (Age: 45) ??F [...] intraepithelial lesion (LSIL). EDUCATIONAL NOTES/RECOMMENDATI ONS ? [facility] recommends following ASCCP's 2012 Updated Consensus Guidelines [...] 33,35,39,45,51,52, 56,58,59,66, and 68 is detected by narrow fabric loom fixer mediated amplification. High and intermediate risk HPV [...] confirmed the above diagnosis. End of Report [facility] 10/13/2015 10/14/2015 Mary Alice Ruby MD PATHOLOGY ORDERABLES [facility] [address] [place] [address] documented in this encounter Visit Diagnoses Not on filedocumented in this encounter Care Teams Manager Hardware Relationship Specialty Start Date End Date Marlon Levine MD [address] [place] [address] PCP - General 06/17/12 documented as of this encounter
--- OUTSIDE RECORDS SUMMARY | 2024-01-19 17:59 | XMS_ITS | Encounter Summary ---
Author Organization [facility] Address [facility] [place] [address] Care Team Providers Care Material Handler Name Role Phone Marlon Levine MD Primary Care Provider [phone] Encounter Details Date Type Department Care Team (Late st Contact Info) Description 10/30/2008 Orders [place] [address] Margarita Joe MD [facility] [place] [address] Social History Tobacco Use Types Packs/Day Years [...] 10:50 AM EDT) Surgical Pathology Report [id number] ? Location: 3WST; 0301; A The signing [...] tissue from slice at deep margin; (14) labor service representative fibrous tissue from outer lower quadrant; (15) labor service representative fibrous tissue from lower inner quadrant; (16) labor service representative fibrous tissue from upper inner quadrant. [...] quadrant; (9) lower inner quadrant. ?? (R9) ??[facility] Microscopic Description Slides reviewed, microscopic description not recorded. Diagnosis Specimen: ? A - Breast, right, skin-sparing mastectomy Specimen Size: ?17.0 x 14.0 x 2.5 cm Residual malignancy: ?Absent Prior Bx's correlation: [id number], partial mastectomy ?[id number], axillary lymph nodes Other findings: ? Fibrocystic [...] on filedocumented in this encounter Care Teams Material Handler Relationship Specialty Start Date End Date Marlon Levine MD [address] [place] [address] PCP - General 06/20/12 documented as of this encounter
--- OUTSIDE RECORDS SUMMARY | 2024-01-19 17:59 | XMS_ITS | Encounter Summary ---
Author Organization [facility] Address [facility] [place] [address] Care Team Providers Care Hearing Aid Specialist Name Role Phone Marlon Levine MD Primary Care Provider [phone] Encounter Details Date Type Department Care Team (Late st Contact Info) Description 04/24/2011 Orders Only [place] [address] Jc Carpenter MD [facility] GENERAL [place] [address] Social History Tobacco Use Types Packs/Day Years [...] Carpenter MD IMG FILM LIBRARY ORD ERABLES [facility] [address] [facility] [place] [address] documented in this encounter Visit Diagnoses Not on filedocumented in this encounter Care Teams Hearing Aid Specialist Relationship Specialty Start Date End Date Marlon Levine MD [address] [place] [address] PCP - General 02/16/10 06/19/12 documented as of this encounter
--- OUTSIDE RECORDS SUMMARY | 2024-01-19 17:59 | XMS_ITS | Encounter Summary ---
Author Organization [facility] Address [facility] [place] [address] Care Team Providers Care Haircutter Name Role Phone Marlon Levine MD Primary Care Provider [phone] Encounter Details Date Type Department Care Team (Late st Contact Info) Description 04/21/2011 Orders [place] [address] Jc Carpenter MD [facility] GENERAL [place] [address] Social History Tobacco Use Types Packs/Day Years [...] Carpenter MD IMG FILM LIBRARY ORD ERABLES [facility] [address] [facility] [place] [address] documented in this encounter Visit Diagnoses Not on filedocumented in this encounter Care Teams Haircutter Relationship Specialty Start Date End Date Marlon Levine MD [address] [place] [address] PCP - General 02/16/10 06/19/12 documented as of this encounter
--- OUTSIDE RECORDS SUMMARY | 2024-01-19 18:00 | XMS_ITS | Encounter Summary ---
Author Organization [facility] Address [address] [place] [address] Care Team Providers Care Buffer Inflated Pad Name Role Phone Unknown, Provider Primary Care Provider [phone] Encounter Details Date Type Department Care Team (Late st Contact Info) Description 02/15/2005 Results Only [facility] Surgical Oncology - [facility] [address] [place] [address] Lamont Marroquin MD MSc [address] [place] [phone] Social History Tobacco Use Types Packs/Day Years [...] ? BILLIE LANCE ? Accession #: ? [id number] ? : ? 1970 (Age: 34) ??F [...] a duct or parenchymal breast tissue. ??(Dr. Le)/[facility] Document reviewed and electronically signed by: JOSE [...] submitted entirely as (A1) and (A2). ??(Dr. Le)/[facility] End of Report [facility] 02/15/2005 02/15/2005 15: 17 EST Lamont Marroquin MD MSc PATHOLOGY ORDERABLES [facility] [address] [place] [address] * CYTOPATHOLOGY (02/15/2005 0:00 EST) Pathology Report: CYTOPATHOLOGY REPORT Reports generated via electronic interface contain original data; however they are lacking the format of the original report. Caution should be taken when reading/interpreti ng unformatted reports. Name: ? BILLIE LANCE ? Accession #: ? [id number] : ? 1970 (Age: 34) ??F ?Collect [...] but do not exclude underlying papilloma. (Dr. Moreno)/[facility] Document reviewed and electronically signed by: ? IVANNA MORENO MD [facility] Report Date: ??02/16/2005 13:31 By the signature [...] MD MSc PATHOLOGY ORDERABLES Performing Organization Address City/State/[facility] Co de Phone Number [facility] [address] [place] [address] documented in this encounter Visit Diagnoses Not on filedocumented in this encounter Care Teams Buffer Inflated Pad Relationship Specialty Start Date End Date Unknown, Provider, PCP - General 07/26/08 06/16/12 documented as of this encounter
--- OUTSIDE RECORDS SUMMARY | 2024-01-19 18:00 | XMS_ITS | Encounter Summary ---
Author Organization [facility] Address [address] [place] [address] Care Team Providers Care Ship Liner Name Role Phone Unavailable Primary Care Provider Unavailabl e Encounter Details Date Type Department Care Team (Late st Contact Info) Description 02/15/2005 15:44 EST Hospital Encounter [facility] [address] [place] [address] Marlon Levine MD [address] [place], [place] [address] Deep Rutherford MD MSc [address] [place] [address] Discharge Disposition: Auto Discharge Social [...]
--- OUTSIDE RECORDS SUMMARY | 2024-01-19 18:00 | XMS_ITS | Encounter Summary ---
Author Organization [facility] Address [address] [place] [address] Care Team Providers Care Asparagus Buncher Name Role Phone Unavailable Primary Care Provider Unavailabl e Encounter Details Date Type Department Care Team (Late st Contact Info) Description 03/02/2005 6:06 EST - 03/02/2005 11:59 EST Hospital Encounter [facility] Perioperative Services- [facility] [address] [place] [address] Deep Rutherford MD [address] [phone] Discharge Disposition: Home or Self Care Social [...] PROCEDURE REPORT PT TYPE: OPPROC PT LOC: [id number] SERVICE DATE: 03/02/2005 SURGEON: Deep Rutherford MD RECYCLING PROGRAM MANAGER: Bogdan Hawkins MD PREOPERATIVE DIAGNOSIS: Left breast [...] Rutherford MD A - RICARDO Job ID: [id number] Document ID: [id number] cc: Deep Rutherford MD Cancer Data Registry [...]
--- OUTSIDE RECORDS SUMMARY | 2024-01-19 18:00 | XMS_ITS | Encounter Summary ---
Author Organization [facility] Address [address] [place] [address] Care Team Providers Care Engineering And Scientific Programmer Name Role Phone Unavailable Primary Care Provider Unavailabl e Encounter Details Date Type Department Care Team (Late st Contact Info) Description 02/24/2005 17:12 [facility] Hospital Encounter [address] [address] Marissa Garay MD PhD [address] [place] [address], [address] [place] [phone] Social History Tobacco Use Types Packs/Day Years [...]
--- OUTSIDE RECORDS SUMMARY | 2024-01-19 18:00 | XMS_ITS | Encounter Summary ---
Author Organization [facility] Address [address] [place] [address] Care Team Providers Care Maintenance Painter Apprentice Name Role Phone Unknown, Provider Primary Care Provider [phone] Encounter Details Date Type Department Care Team (Late st Contact Info) Description 07/26/2008 Office Visit [facility] - Maple conversion [address] [place] [address] Maj Miguel MD [address] [place] [id number] Social History Tobacco Use Types Packs/Day [...] aspiration of fluid 5 weeks ago at [facility]. Last night had temp of 100.2. Feels [...] Discussed case with physician . oncology at [facility], Dr. Bernal. Reviewed test results. 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 Pt discharged on Keflex 500mg QID x 7 days. Pt is on chemo for breast cancer, no neutropenia. No LMD listed on lab form. signed by Luz Wheatley R.N. [facility] - 07/29/2008 11:52) Department - Nursing [...] The patient has had a headache. Treatment STOCK TURNER: None. PAST HX: Breast cancer. SOCIAL HX: [...] limits. Patient transported to radiology by stretcher. --0961 Joyce Fragoso R.N. (Critical Value Per Lab: PTT 112). --1008 Zenon HansenM.TWendy (U/S at bedside for study.). --1033 Joyce Fragoso R.N. (Pt resting quietly, nad. Supportive lapidary apprentice at bedside. Pt reports pain unchanged but [...] sent to lab, specimen obtained by surgical processor). --1239 Laurel Huerta R.N. BP: 129 / 63 right leg. HR: 94. RR: 16. Temp: 98.9 oral. The patient is resting quietly. --1244 Kaye Sy. BP: 125/ 60. HR: 101. RR: 16. O2 saturation: 99 % room air. --1346 Kathy Greenfield R.N. TYLENOL 650 mg PO. . --1358 Kathy Greenfield R.N. Reassessment after medication administered. The patient [...] 5 mL (100 units / mL) heparin. --0911 Joyce Fragoso R.N.. DISPOSITION / DISCHARGE Condition [...] Patient verbalized understanding. Written instructions provided in Divehi. (Port flushed with 10 cc NS then 2.5 cc Heparin (100 units/mL) and de- accessed.). The patient was discharged home and accompanied by lapidary apprentice. The patient left the Emergency Department ambulatory and via private vehicle. Video Camera Operator driving. --1531 Kathy Greenfield R.N. Fall risk assessment completed. No fall risk identified. --1531 Kathy Greenfield R.N.. Zenon Amaya R.N.M.TZenon Horton R.N.MWalt YarbroughMYvan Trujillo R.N. Locked/Released at 07/27/2008 8:41 by Laurel Huerta R.N. documented in this encounter Plan of Treatment Not on file documented as of this encounter Visit Diagnoses Not on filedocumented in this encounter Care Teams Maintenance Painter Apprentice Relationship Specialty Start Date End Date Unknown, Provider, PCP - General 07/26/08 06/16/12 documented as of this encounter
--- OUTSIDE RECORDS SUMMARY | 2024-01-19 18:00 | XMS_ITS | Encounter Summary ---
Author Organization [facility] Address [address] [place] [address] Care Team Providers Care Automatic Buffing Wheel Former Name Role Phone Unknown, Provider Primary Care Provider [phone] Encounter Details Date Type Department Care Team (Late st Contact Info) Description 03/22/2005 Before PRISM Converted Visit (Maple) [facility] - Maple conversion [address] [place] [address] Deep Rutherford MD MSc [address] [place] [phone] Social History Tobacco Use Types Packs/Day Years Used Date Smoking Tobacco: Never Assessed Sex and Gender Information Value Date Recorded Sex Assigned at Not on file Gender Identity Not on file Sexual Orientation Not on file documented as of this encounter Progress Notes * Deep Rutherford MD - 05/28/2009 1223 EST DIVISION OF SURGICAL ONCOLOGY - BREAST [facility] PROGRESS/FOLLOWUP NOTE - 03/22/2005 Reason for [...] 2.9 cm in greatest dimension, poorly differentiated, ER/AK negative, with 10% DCIS component, all margins [...] the characteristics of the tumor and its ER/AK negative status, chemotherapy was thought to be of greatbenefit. I will see the patient back in my clinic in three months for overall follow-up and reassessment. Atthat time I will also readdress the range of motion of the left arm. Signed by Deep Rutherford MD 03/24/2005 11:51 Tushard Timoteo Ch MD Deep Rutherford MD - Deep Rutherford MD P - KKB Job ID: [id number] Document ID: [id number] cc: Cancer Data Registry Marlon Levine MD cc: Cancer Data Registry Marlon Levine MD documented in this encounter Plan of Treatment Not on file documented as of this encounter Visit Diagnoses Not on filedocumented in this encounter Care Teams Automatic Buffing Wheel Former Relationship Specialty Start Date End Date Unknown, Provider, PCP - General 07/26/08 06/16/12 documented as of this encounter
--- OUTSIDE RECORDS SUMMARY | 2024-01-19 18:00 | XMS_ITS | Encounter Summary ---
Author Organization [facility] Address [address] [place] [address] Care Team Providers Care Department Helper Name Role Phone Unknown, Provider Primary Care Provider [phone] Encounter Details Date Type Department Care Team (Late st Contact Info) Description 03/10/2005 Results Only [facility] Surgical Oncology - [facility] [address] [place] [address] Lamont Marroquin MD MSc [address] [place] [phone] Social History Tobacco Use Types Packs/Day Years [...] ? BILLIE LANCE ? Accession #: ? [id number] ? : ? 1970 (Age: 34) ??F [...] identified Lymph nodes: ?0/10 (positive/total count) ER/ VA: ?ER negative (0%); VA negative (0%)([id number]) C-erb-B2: ? Negative ([id number]) ?? Final Pathologic Diagnosis: ? A. ?Breast, [...] MD MSc PATHOLOGY ORDERABLES [facility] [address] [place] [address] documented in this encounter Visit Diagnoses Not on filedocumented in this encounter Care Teams Department Helper Relationship Specialty Start Date End Date Unknown, Provider, PCP - General 07/26/08 06/16/12 documented as of this encounter
--- OUTSIDE RECORDS SUMMARY | 2024-01-19 18:00 | XMS_ITS | Encounter Summary ---
Author Organization [facility] Address [address] [place] [address] Care Team Providers Care Contact Center Consultant Name Role Phone Unknown, Provider Primary Care Provider [phone] Encounter Details Date Type Department Care Team (Late st Contact Info) Description 03/02/2005 Results Only [facility] Surgical Oncology - [facility] [address] [place] [address] Lamont Marroquin MD MSc [address] [place] [phone] Social History Tobacco Use Types Packs/Day Years [...] ? BILLIE LANCE ? Accession #: ? [id number] ? : ? 1970 (Age: 34) ??F [...] identified Lymph nodes: ?0/10 (positive/total count) ER/ ME: ?See separate report C-erb-B2: ? See separate [...] reported separately in an addendum. ??(Dr. Abimael Stevenson)/[facility] Document reviewed and electronically signed by: SHANNON WHEELER [facility] Report ??Date: 03/07/2005 16:53 By the signature above, the attending physician certifies that he/she has personally conducted a gross and/or microscopic examination of the described specimens and rendered or confirmed the above diagnosis. Specimen(s) Received: A. ?Left breast mass (#1) B. ?Additional margin left breast, suture dbl long-lat, single short-superior, zgy-tnmij-pavxfses; 3 clips-anterior, single clip-superior, 2 clips-lateral C. ?Manquin node, left #1 Ct 1267 D. ?Non-sentinel node #1 E. ?? Manquin node #2, Ct 2658 F. ?Manquin node #3, Ct 363 G. ?Manquin node #4, Ct 364 H. ?#5 sentinel node, left, Ct 485 I. ?Manquin node left XVIVO 82 J. ?XVIVO 81 [...] Patricia Dean; 03/02/05 at 10:42 AM 3. ?Manquin node, left, #1, CT 1267 (SP1): 1 lymph node negative for malignancy (0/1) ??Dr. Delilah Dean; ? 03/02/05 at 12:20 4. ?Non-sentinel node (gross consult): ??1 lymph node macroscopically negative for malignancy ??Dr. Mazariegos ? Dianne; 03/02/05 at 12:20 5. ?Manquin node #2 CT 2658 (SP2): ??1 lymph node negative for malignancy (0/1) ??Dr. Delilah Dean; 03/02/05 6. ?Manquin node #3 CT 363 (gross consult): ??2 lymph nodes macroscopically negative for malignancy ??DrWendy ?Delilah Dean; 03/02/05 at 12:20 7. ?Manquin node #4 CT 364 (gross consult): ??1 lymph node macroscopically negative for malignancy ??Dr. Delilah Dean; 03/02/05 at 12:20 8. ?#5 sentinel node, left CT 485 (SP3): ??1 lymph node negative for malignancy (0/1) ??Dr. Delilah Dean; 03/02/05 at 12:20 9. ?Manquin node left ex-vivo 82 (gross consult): ??1 lymph node macroscopically negative for malignancy ??Dr. Delilah Dean; 03/02/05 at 12:40 ? 10. Manquin node left ex-vivo 81 (gross consult): ?? [...] as (C). Received fresh labelled Lance and T-orr-ramvpeqq node #1 is a 2.3 x 0.6 [...] Tissue submitted: Paraffin embedded tissue block labelled [id number] (A27) from [facility]. An immunohistochemical assay for estrogen receptors (ER1D5, Dako) and progesterone receptors (KiH4838, Dako) has been performed on this specimen. [...] reagents' ??performance characteristics have been determined by [facility]. ??This laboratory is certified under the Clinical [...] Tissue submitted: Paraffin embedded tissue block labelled [id number] (A27) from [facility] Fixative: ?? Formalin ??(Fixation in 10% neutral buffered formalin for 18-24 hours with maximum tissue thickness of 3-4 millimeters is recommended for best assay performance. ??Dako HerceptestTM should not be performed on alcohol fixed tissues.) ? A c-erb-B2 (Her2/cynthia) assay (Dako HerceptestTM) was requested by Dr. Marroquin on this breast carcinoma. ??The assay was performed under appropriate conditions according to the materials and corrosion engineer' s instructions with appropriate assay and tissue [...] MD MSc PATHOLOGY ORDERABLES [facility] [address] [place] [address] documented in this encounter Visit Diagnoses Not on filedocumented in this encounter Care Teams Contact Center Consultant Relationship Specialty Start Date End Date Unknown, Provider, PCP - General 07/26/08 06/16/12 documented as of this encounter
--- OUTSIDE RECORDS SUMMARY | 2024-01-19 18:00 | XMS_ITS | Encounter Summary ---
Author Organization [facility] Address [address] [place] [address] Care Team Providers Care Clean Out Driller Helper Name Role Phone Unknown, Provider Primary Care Provider [phone] Encounter Details Date Type Department Care Team (Late st Contact Info) Description 12/11/2002 Results Only [address] [address] Cami Louis MD Social History Tobacco Use Types Packs/Day [...] ? STEPHENSONBILLIE Chanelle ? Accession #: ? [id number] : ? 1970 (Age: 32) ??F ?Collect [...] 12/13/2002 Cami Louis MD PATHOLOGY ORDERABLES [facility] [address] [place] [address] documented in this encounter Visit Diagnoses Not on filedocumented in this encounter Care Teams Clean Out Driller Helper Relationship Specialty Start Date End Date Unknown, Provider, PCP - General 07/26/08 06/16/12 documented as of this encounter
--- OUTSIDE RECORDS SUMMARY | 2024-01-19 18:00 | XMS_ITS | Encounter Summary ---
Author Organization [facility] Address [address] [place] [address] Care Team Providers Care Marketing Sales Supervisor Name Role Phone Unknown, Provider Primary Care Provider [phone] Encounter Details Date Type Department Care Team (Late st Contact Info) Description 05/01/2006 Results Only [facility] - Maple conversion [address] [place] [address] Sofia Obrien FNP [address] [place], [place] [id number] Social History Tobacco Use Types Packs/Day Years [...] reading/interpreti ng unformatted reports. Name: ? STEPHENSONBILLIE ? Accession #: ? [id number] : ? 1970 (Age: 35) ??F ?Collect Date: ? 05/01/2006 Location: ? [facility] ? Receive Date: ? 05/03/2006 Provider: ?SOFIA OBRIEN NANOSYSTEMS ENGINEER Copy to: ? Specimen/Source: ?ThinPrep Pap Test, Cervix/Endocervix, processed on APGR Green ThinPrep Imaging System, with manual evaluation Last [...] DOWDP PATHOLOGY ORDERABLES [facility] [address] [place] [address] documented in this encounter Visit Diagnoses Not on filedocumented in this encounter Care Teams Marketing Sales Supervisor Relationship Specialty Start Date End Date Unknown, Provider, PCP - General 07/26/08 06/16/12 documented as of this encounter
--- OUTSIDE RECORDS SUMMARY | 2024-01-19 18:00 | XMS_ITS | Encounter Summary ---
Author Organization [facility] Address [address] [place] [address] Care Team Providers Care Hunting Sales Associate Name Role Phone Unknown, Provider Primary Care Provider [phone] Encounter Details Date Type Department Care Team (Late st Contact Info) Description 09/11/2009 Results Only [address] [address] Cami Louis MD Social History Tobacco Use [...] ? BILLIE STEPHENSON ? Accession #: ? [id number] ? : ? 1970 (Age: 39) ??F ?Collect Date: ? 09/11/2009 ? Location: ? [facility] ? Receive Date: ? 09/15/2009 ? Provider: ?CAMI FINE MD ? Copy to: ? Specimen/Source: ?Pap [...] 09:26 ? End of Report ? [facility] 09/11/2009 09/15/2009 Cami Louis MD PATHOLOGY ORDERABLES Performing Organization Address City/State/[facility] Co de Phone Number [facility] [address] [place] [address] documented in this encounter Visit Diagnoses Not on filedocumented in this encounter Care Teams Hunting Sales Associate Relationship Specialty Start Date End Date Unknown, Provider, PCP - General 07/26/08 06/16/12 documented as of this encounter
--- OUTSIDE RECORDS SUMMARY | 2024-01-19 18:00 | XMS_ITS | Encounter Summary ---
Author Organization [facility] Address [address] [place] [address] Care Team Providers Care Animal Killer Name Role Phone Unknown, Provider Primary Care Provider [phone] Encounter Details Date Type Department Care Team (Late st Contact Info) Description 04/25/2006 Results Only [facility] - Maple conversion [address] [place] [address] Todd Dominguez, DO [address] [facility] [address] [address] Social History Tobacco Use Types Packs/Day Years [...] ? BILLIE LANCE ? Accession #: ? [id number] ? : ? 1970 (Age: 35) ??F [...] Dominguez DO PATHOLOGY ORDER [facility] [address] [place] [address] documented in this encounter Visit Diagnoses Not on filedocumented in this encounter Care Teams Animal Killer Relationship Specialty Start Date End Date Unknown, Provider, PCP - General 07/26/08 06/16/12 documented as of this encounter
--- OUTSIDE RECORDS SUMMARY | 2024-01-19 18:00 | XMS_ITS | Encounter Summary ---
Author Organization [facility] Address [address] [place] [address] Care Team Providers Care Sales Representative Door To Door Name Role Phone Unknown, Provider MD Primary Care Provider Encounter Details Date Type Department Care Team (Late st Contact Info) Description 07/26/2008 8:33 EDT - 07/26/2008 15:32 EDT Emergency [facility] Emergency Department - [address] [address] Emergency, Default, MD Discharge Disposition: Home or [...] EDT Default Emergency MD MICROBIOLOGY - [facility] ORDERABLES [facility] [address] [place] [address] * UA REFLEX (07/26/2008 11:50 EDT) UA Billing Microscopic not indicated. [facility] 07/26/2008 11:5 0 EDT 07/26/2008 13:18 EDT Default Emergency MD URINALYSIS ORDERABL ES Performing Organization Address [facility] de Phone Number [facility] [address] [place] [address] * (ABNORMAL) URINALYSIS, CHEMICAL (07/26/2008 11:50 EDT) Color, UA Yellow [facility] Clarity, UA Hazy [facility] Glucose, UA Norm NORM [facility] Bilirubin, UA Neg NEG [facility] Ketones, UA Neg NEG [facility] Specific [place], Urine 1.015 1.005 - 1.02 [facility] TO [...] Emergency URINALYSIS ORDERABL ES Performing Organization Address [facility] de Phone Number [facility] [address] [place] [address] * CULTURE IF UA POSITIVE (07/26/2008 11:50 EDT) Culture if Indicated Culture not indicated by urinalysis results. [facility] 07/26/2008 11:5 0 EDT 07/26/2008 13:18 EDT Default Emergency MD MICROBIOLOGY - GENE RAL ORDERABLES Performing Organization Address [facility] Co de Phone Number [facility] [address] [place] [address] * RAD US DOPPLER UPPER EXTREMITY VENOUS [...] agree with the findings. Maj Lamont [facility] US ORDERABLES * CHEST PA AND LATERAL [...] & PF4 OR DERABLES Performing Organization Address [facility] de Phone Number [facility] [address] [place] [address] * (ABNORMAL) PROTIME (07/26/2008 9:32 EDT) Pro [...] & PF4 OR DERABLES Performing Organization Address [facility] de Phone Number [facility] [address] [place] [id number] * (ABNORMAL) LIVER FUNCTION TESTS (07/26/2008 9:32 [...] & BLOOD G ORDERABLES Performing Organization Address [facility] de Phone Number [facility] [address] [place] [address] * (ABNORMAL) SCREENING GLUCOSE (07/26/2008 9:32 EDT) Pathologist [facility] Glucose, Screening 105(H) 70 - 100 mg/dl [facility] Blood specimen (specimen) 07/26/2008 9:32 EDT 07/26/2008 9:32 EDT Default Emergency MD CHEMISTRY & BLOOD G ORDERABLES Performing Organization Address [facility] Co de Phone Number [facility] [address] [place] [address] * (ABNORMAL) CREATININE (07/26/2008 9:32 EDT) Pathologist [facility] Creatinine 0.60(L) 0.7 - 1.5 mg/dl [facility] GFR, Calculated >60 ml/min/1.7 3m2 [facility] Blood specimen (specimen) 07/26/2008 9:32 EDT 07/26/2008 9:32 EDT Default Emergency MD CHEMISTRY & BLOOD G ORDERABLES Performing Organization Address [facility] de Phone Number [facility] [address] [place] [address] * BUN (07/26/2008 9:32 EDT) Pathologist [facility] BUN 13 10 - 26 mg/dl [facility] Blood specimen (specimen) 07/26/2008 9:32 EDT 07/26/2008 9:32 EDT Default Emergency MD CHEMISTRY & BLOOD G ORDERABLES Performing Organization Address [facility] Co de Phone Number [facility] [address] [place] [address] * (ABNORMAL) ELECTROLYTES (07/26/2008 9:32 EDT) Sodium 135(L) 136 - 145 mEq/L [facility] Potassium 3.8 3.5 - 5.0 mEq/L [facility] Chloride 102 96 - 110 mEq/L [facility] CO2 27 24 - 32 mEq/L [facility] Blood specimen (specimen) 07/26/2008 9:32 EDT 07/26/2008 9:32 EDT Default Emergency MD CHEMISTRY & BLOOD G ORDERABLES [facility] [address] [place] [address] * (ABNORMAL) HEMAGRAM AND DIFFERENTIAL (07/26/2008 9:32 EDT) WBC 7.32 4.0 - 12.4 K/cmm [facility] RBC 2.82(L) 3.86 - 5.04 M/cmm [facility] Hemoglobin 10.1(L) 11.6 - 15.2 gm/dl [facility] HCT 28.7(L) 34.9 - 44.4 % [facility] MCV 102(H) 81 - 98 fl [facility] MCH 36.0(H) 26.7 - 33.3 pg [facility] MCHC 35.4 32.1 - 35.9 gm/dl [facility] PLT 147 141 - 320 K/cmm [facility] RDW-CV 16.0(H) 11.7 - 14.6 % [facility] Neutrophils 92.4(H) 45.5 - 79.7 % [...] DNA PROB E ORDERABLES Performing Organization Address [facility] Co de Phone Number [facility] [address] [place] [address] * BACTERIAL CULTURE, BLOOD (07/26/2008 9:25 EDT) Specimen Description Blood Draw site not indicated. [facility] Result No growth [facility] Report Status Final [id number] [facility] Blood specimen (specimen) 07/26/2008 9:25 EDT 07/26/2008 11:03 EDT Default Emergency MICROBIOLOGY - GENE RAL ORDERABLES Performing Organization Address [facility] de Phone Number [facility] [address] [place] [address] * BACTERIAL CULTURE, BLOOD (07/26/2008 9:05 EDT) Specimen Description Blood Draw site not indicated. [facility] Result No growth [facility] Report Status Final [id number] [facility] Blood specimen (specimen) 07/26/2008 9:05 EDT 07/26/2008 11:02 EDT Default Emergency MICROBIOLOGY - GENE RAL ORDERABLES Performing Organization Address [facility] Co de Phone Number [facility] [address] [place] [address] documented in this encounter Visit Diagnoses Not on filedocumented in this encounter Care Teams Sales Representative Door To Door Relationship Specialty Start Date End Date Unknown, Provider, PCP - General 07/26/08 06/16/12 documented as of this encounter
--- OUTSIDE RECORDS SUMMARY | 2024-01-19 18:00 | XMS_ITS | Encounter Summary ---
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 [...] coupled with a left breast ultrasound at [facility] on 02/11/2005. A suspicious-appearing grouping of innumerable [...] subsequently seen by Dr.Ted Rutherford at the [facility] on 02/15/2005. His physical exam at that [...] node biopsy under Dr. Rutherford' care at [facility] on 03/02/2005. Subsequent histopathology revealed poorly differentiated [...] once again, under Dr. Rutherford's care at [facility] on 03/10/2005. Subsequent histopathology revealed negative surgical resection margins and no significant residual malignancy was present either from the posterior or inferior medial margins. She has had an uneventful postoperative recovery and comes to the [facility] in followup todayto meet with both radiation [...] toget my chemotherapy here or over at [facility] which would definitely be closer...I know [...] products. NKMA. SOCIAL HISTORY: , lives in [place]. 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 She has about two drinks per month and has never smoked. FAMILY HISTORY: Antonia has a sister who was diagnosed with breast cancer at around age 39 and is currently alive and well at age 43; My sister wasmisdiagnosed at [facility] so that's why we have artie little [...] with sentinel lymph node biopsy, ER and IA negative and HER-2/cynthia negative as well. She [...] an excellent candidate for participation in CALGB 87167 which looks at the use of either dose-dense AC versus Taxol or either two or three monthsduration in node-negative high-risk breast cancer. Outside of this clinical trial, I would probablyrecommend AC for four cycles administered either every three weeks or more likely every two weeks in dose- dense fashion with Neulasta growth factor support. Since she is both ER and IA negative, I would not recommend any adjuvant [...] PLAN: 1. I spent 75 minutes in mloe-mo-vknu contact with Antonia and her today with [...] and radiation therapy, a catalog from the [employer] about wigs and scarves regarding [...] have therapy and further care done at [facility] in [facility] as staffed by [facility], I would be happy to arrange for suchconsultation to occur. Signed by Valentina aFrooq MD 04/05/2005 08:31 Koby Farooq MDHematology / Oncology Attendingdevika Farooq MD Valentina Farooq MD Hematology / Oncology Attending - Valentina Farooq MD A - BC Job ID: [id number] Document ID: [id number] cc: MD Marissa Cline MD Ted A James, MD Timothy Tanner, MD documented in this encounter Care Teams Cleaner Housekeeping Relationship Specialty Start Date End Date Unknown, Provider, PCP - General 07/26/08 06/16/12 documented as of this encounter
--- OUTSIDE RECORDS SUMMARY | 2024-01-19 18:00 | XMS_ITS | Encounter Summary ---
Author Organization [facility] Address [address] [place] [address] Care Team Providers Care Labor Representative Name Role Phone Unknown, Provider Primary Care Provider [phone] Encounter Details Date Type Department Care Team (Late st Contact Info) Description 04/18/2011 Results Only [facility] - [place] [id number] [place], [place] [id number] Maryann Gillespie, JAMIE Social History Tobacco Use [...] when reading/interpreti ng unformatted reports. Name: ? SEEMABILLIE Chanelle ? Accession #: ? [id number] ? : ? 1970 (Age: 40) ??F ?Collect Date: ? 04/18/2011 ? Location: ? [facility] ? Receive Date: ? 04/19/2011 ? Provider: MARYANN GILLESPIE FELT HAT INSPECTOR AND PACKER Copy to: MORRIS CARTAGENA MD ? Final Report SPECIMEN ADEQUACY ? Satisfactory for Evaluation - transformation zone component present - scant squamous epithelial component secondary to excessive inflammation GENERAL CATEGORIZATION ? Negative for Intraepithelial Lesion or Malignancy ?? Last Menstural Period: 04/04/11 Hormonal/Contracep tive status: Intrauterine device: paraguard Treatment History: Chemotherapy: 8145-7344 Radiation therapy: 0984-8261 Other: Additional clinical information: pap 12/02 neg, pt hx of breast cancer in 6932-8798 Specimen/Source: ??Pap Test, Cervix/Endocervix, ThinPrep Imaging System [...] NP PATHOLOGY ORDERABLES [facility] [address] [place] [address] documented in this encounter Visit Diagnoses Not on filedocumented in this encounter Care Teams Labor Representative Relationship Specialty Start Date End Date Unknown, Provider, PCP - General 07/26/08 06/16/12 documented as of this encounter
--- OUTSIDE RECORDS SUMMARY | 2024-01-19 18:00 | XMS_ITS | Encounter Summary ---
Author Organization [facility] Address [address] [place] [address] Care Team Providers Care Enamel Applier Name Role Phone Unavailable Primary Care Provider Unavailabl e Encounter Details Date Type Department Care Team (Late st Contact Info) Description 03/10/2005 7:09 EST - 03/10/2005 11:59 EST Hospital Encounter [facility] Perioperative Services- [facility] [address] [place] [address] Deep Rutherford MD MSc [address] [place] [phone] Discharge Disposition: Home or Self Care Social [...] PROCEDURE REPORT PT TYPE: OPPROC PT LOC: [id number] SERVICE DATE: 03/10/2005 SURGEON: Deep Rutherford MD MODEL AND DYE PERSON: n/a PREOPERATIVE DIAGNOSIS: Left breast invasive ductal [...] Rutherford MD A - CK Job ID: [id number] Document ID: [id number] cc: Deep Rutherford MD Cancer Data Registry Marlon Levine MD [address] [place] [address] \* MERGEFORMAT Deep Rutherford MD A - ck Job ID: [id number] Document ID: [id number] cc: Deep Rutherford MD Cancer Data Registry Marlon Levine MD documented in this encounter Plan of Treatment Not on file documented as of this encounter Visit Diagnoses Not on filedocumented in this encounter
--- OUTSIDE RECORDS SUMMARY | 2024-01-19 18:00 | XMS_ITS | Encounter Summary ---
Author Organization [facility] Address [address] [place] [address] Care Team Providers Care Director Alliance Marketing Name Role Phone Unknown, Provider Primary Care Provider [phone] Encounter Details Date Type Department Care Team (Late st Contact Info) Description 02/26/2004 Results Only [facility] - Maple conversion [address] [place] [address] Laury Mendoza, JAMIE [address] [place], [place] [address] Social History Tobacco Use Types Packs/Day Years [...] 69. [facility] Report Status Final [id number] [facility] 02/26/2004 14:2 8 EST 03/05/2004 14:28 EST Laury Mendoza NP MICROBIOLOGY - GENER AL ORDERABLES [facility] [address] [place] [address] * CYTOPATHOLOGY (02/26/2004 0:00 EST) Pathology Report: CYTOPATHOLOGY REPORT Reports generated via electronic interface contain original data; however they are lacking the format of the original report. Caution should be taken when reading/interpreti ng unformatted reports. Name: ? BILLIE STEPHENSON ? Accession #: ? [id number] : ? 1970 (Age: 33) ??F ?Collect [...] Mendoza NP PATHOLOGY ORDERABLES Performing Organization Address City/State/[facility] Co de Phone Number [facility] [address] [place] [address] documented in this encounter Visit Diagnoses Not on filedocumented in this encounter Care Teams Director Alliance Marketing Relationship Specialty Start Date End Date Unknown, Provider, PCP - General 07/26/08 06/16/12 documented as of this encounter
--- OUTSIDE RECORDS SUMMARY | 2024-01-19 18:00 | XMS_ITS | Encounter Summary ---
Author Organization [facility] Address [address] [place] [address] Care Team Providers Care Medical Doctor Name Role Phone Unavailable Primary Care Provider Unavailabl e Encounter Details Date Type Department Care Team (Late st Contact Info) Description 03/22/2005 11:04 [facility] Hospital Encounter [facility] [address] [place] [address] Deep Rutherford MD MSc [address] [place] [phone] Social History Tobacco Use Types Packs/Day [...] ? BILLIE STEPHENSON ? Accession #: ? [id number] ? : ? 1970 (Age: 37) ??F ?Collect Date: ? 12/11/2007 ? Location: ? [facility] ? Receive Date: ? 12/11/2007 ? Provider: ?JERRI FABIÁN OCCUPATIONAL THERAPY TECHNICIAN ? Copy to: ? Specimen/Source: ?ThinPrep Pap [...] ? [facility] MARINELLI 12/11/2007 12/11/2007 Jerri Bennett OCCUPATIONAL THERAPY TECHNICIAN PATHOLOGY ORDERABLES [facility] [address] [place] [address] documented in this encounter Visit Diagnoses Not on filedocumented in this encounter
--- OUTSIDE RECORDS SUMMARY | 2024-01-19 18:00 | XMS_ITS | Encounter Summary ---
Author Organization [facility] Address [address] [place] [address] Care Team Providers Care Other Wood Processing Machine Operator Name Role Phone Unknown, Provider Primary Care Provider [phone] Encounter Details Date Type Department Care Team (Late st Contact Info) Description 01/26/2001 Results Only [facility] - Maple conversion [address] [place] [address] Jerri Bennett, [address] [place] [place] [address] Social History Tobacco Use Types [...] ? BILLIE STEPHENSON ? Accession #: ? [id number] : ? 1970 (Age: 30) ??F ?Collect Date: ? 01/26/2001 Location: ? [facility] ? Receive Date: ? 01/29/2001 Provider: ?JERRI BENNETT HOUSE SITTER Copy to: ? Specimen/Source: ?ThinPrep Pap Test, Cervix/Endocervix Last Menstrual Period: ? 01/19/01 ? SPECIMEN ADEQUACY ? Satisfactory for evaluation but limited by scant squamous epithelial component secondary to excessive blood. GENERAL CATEGORIZATION ? Within Normal Limits ? Document reviewed and electronically signed by: ? JENNIFER Barney(ASCP) ? Report Date: ??02/01/2001 10:37 End of Report YEISON MARINELLI 01/26/2001 01/29/2001 Jerri Bennett HOUSE SITTER PATHOLOGY ORDERABLES [facility] [address] [place] [address] documented in this encounter Visit Diagnoses Not on filedocumented in this encounter Care Teams Other Wood Processing Machine Operator Relationship Specialty Start Date End Date Unknown, Provider, PCP - General 07/26/08 06/16/12 documented as of this encounter
--- OUTSIDE RECORDS SUMMARY | 2024-01-19 18:00 | XMS_ITS | Encounter Summary ---
Author Organization [facility] Address [address] [place] [address] Care Team Providers Care Cancer Genetic Counselor Name Role Phone Unavailable Primary Care Provider Unavailabl e Encounter Details Date Type Department Care Team (Latest Contact Info) Description 04/07/2004 12:26 EST Hospital Encounter [facility] - Other [address] [place] [address] Olegario Mcconnell MD Discharge Disposition: Auto Discharge [...]
--- OUTSIDE RECORDS SUMMARY | 2024-01-19 18:00 | XMS_ITS | Encounter Summary ---
Author Organization [facility] Address [address] [place] [address] Care Team Providers Care Mailroom Personnel Name Role Phone Unknown, Provider Primary Care Provider [phone] Encounter Details Date Type Department Care Team (Late st Contact Info) Description 02/15/2005 Before PRISM Converted Visit (Maple) [facility] - Maple conversion [address] [place] [address] Deep Rutherford MD MSc [address] [place] [phone] Social History Tobacco Use Types Packs/Day Years [...] any biopsies and was sent for evaluation [facility]. She has no personal history of breast [...] lives at home with her and daughter. 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 The patient continues to have regular menstrual cycles. with delivery at age 22. The patient's LMP was 02/05/05. She is scheduled for pelvic examination in 02/28. The patient denies any fertility drug use. She has a 5-[id number]-[id number] of oral control pill use. She has [...] or right axilla. Diagnostics: Outside report from [facility] mammography dated 02/11/05 revealed an area of [...] obtained. The patient will meet with the senior marketing coordinator to select a date for surgery. Signed by Deep Rutherford MD 02/21/2005 16:34 Timoteo Foster MD Deep Rutherford MD - Deep Rutherford MD P - KKB Job ID: [id number] Document ID: [id number] cc: Cami Louis MD Cancer Data Registry Marlon Levine MD cc: Cami Louis MD Cancer Data Registry Marlon Levine MD documented in this encounter Plan of Treatment Not on file documented as of this encounter Visit Diagnoses Not on filedocumented in this encounter Care Teams Mailroom Personnel Relationship Specialty Start Date End Date Unknown, Provider, PCP - General 07/26/08 06/16/12 documented as of this encounter
== END 2024-01-19 17:49 | disposition home or self-care (01) ==
LOC: ER 17:56
PROVIDERS: Emergency Provider Registered Nurse Emergency; PCP Nurse Practitioner Family
DX: S09.8XXA Other specified injuries of head, initial encounter (principal); S16.1XXA Strain of muscle, fascia and tendon at neck level, initial encounter; E78.5 Hyperlipidemia, unspecified; W01.198A Fall on same level from slipping, tripping and stumbling with subsequent striking against other object, initial encounter; Y93.01 Activity, walking, marching and hiking; Y92.512 Supermarket, store or market as the place of occurrence of the external cause
CPT/HCPCS: 99284; 70450; 72125; 99283

== ENCOUNTER 2024-03-07 08:57 | Emergency (ER) | payer MEDICAID, SELFPAY ==
[2024-03-07] VITALS (37 sets, daily range): BP systolic 104–141; BP diastolic 60–99; PULSE 45–92; RESP 14–18; TEMP 36.5–36.6; O2SAT 96–100
--- NOTE | 2024-03-07 09:12 | ED.GENADUL_ITS ---
Discharge Plan Disposition Patient Disposition: Home Condition: Stable Discharge Details Clinical Impression: Abdominal pain of unknown etiology, Hx of breast cancer, ÁNGEL (obstructive sleep apnea) Primary Care Provider: Yumiko Tyler ED Provider: Nusrat Tejada Home Meds and New Rx's Prescriptions: No Action No Known Home Meds Discharge Instructions Instructions: Abdominal Pain, Adult ED Additional Instructions: You were seen in the emergency department today for evaluation of abdominal pain. In our department he had a full physical examination performed, had laboratory studies that were reassuring, and had a CT scan that did not show any obvious abnormalities which might account for your symptoms. Unfortunately, we are sometimes unable to determine the exact cause of your symptoms here in the emergency department. You did have some incidental findings on your CT scan today, including evidence of pelvic congestion syndrome, as well as a very sli ghtly enlarged spleen. You did not have any evidence of pancreatitis at this time, though certainly if you continue to have worsening of your pain, develop nausea or vomiting, fevers, or other concerning symptoms you should be reevaluated as things can slubber frame changer time. You had an unfortunate reaction to Dilaudid and I do recommend avoidance of narcotic pain medications in the future. This is not a true allergy but certainly an intolerance. You should use Tylenol and ibuprofen for management of pain at home, maintain good hydration and nutrition and follow-up with your primary care provider in the next few days for reassessment. You can always return to the emergency department for reevaluation. Thank you for allowing us to be part of your care HPI General Mode of arrival: ambulatory . Date/Time Provider Initiated Documentation: 03/07/24 09:00 . Limitations to Documentation: no limitations . Information obtained by: patient, family and old records reviewed . HPI Narrative: HPI: This is a 53-year-old female patient with a past medical history significant for cervical cancer s/p chemotherapy, ÁNGEL, status post tubal ligation and reversal, who is presenting for evaluation of abdominal pain. The patient reports that for the last 2 weeks she has had some pain in her right lower quadrant that radiated around to her back. She reported that she thought that this was constipation, but this morning while making her lunch for work she noticed that she had a severe worsening of her abdominal pain, and it migrated up to the epigastric region. She reported that she felt some urgency and went to the bathroom, had a large volume soft stool with no blood. She states that for the last week or so her stools have been floaty and oily, that this was not the case today. She has not been experiencing any fevers, nausea or vomiting, though she feels like her appetite is not typical for her. Denies dysuria, hematuria, vaginal discharge. The patient reports that she has had pain similar to this in the setting of an episode of pancreatitis. The etiology of her pancreatitis was not known, she did not have gallstones, excessive alcohol use, etc. The patient has not tried any medications for management of the symptoms in the home environment. Exam: Gen: Awake and alert, in no apparent distress HEENT: Non-icteric sclera Neck: Supple Lungs: No apparent respiratory distress, normal respiratory effort. CV: Appears well perfused, strong distal pulses Abdomen: Non-distended, soft, tender to palpation primarily in the epigastric region though palpation throughout the abdomen is uncomfortable, with no rigidity, rebound, or guarding MSK: Moves 4 extremities without apparent limitation in ROM Skin: Visualized skin without rashes, cyanosis. Neuro: Normal Gait, no obvious focal deficits or facial asymmetry. Speaks in full, clear sentences. Psych: Appropriate for situation. MDM: This is a 53-year-old female patient presenting for evaluation of abdominal pain. My differential includes but is not limited to pancreatitis, gastroenteritis, cholecystitis, appendicitis, diverticulitis, nephrolithiasis, pyelonephritis, bowel obstruction. The patient is without historical risk factors that significantly increase my concern for aortic pathology or mesenteric ischemia. related concerns are unlikely in this patient who has undergone chemotherapy and tubal ligation. The patient has no chest pain or cardiac risk factors to significantly increase my concern for ACS. We will provide the patient with initial symptomatic management to include Tylenol and Dilaudid. I will obtain laboratory studies to include CBC, CMP, lipase, and urinalysis. Given the patient's discomfort on physical examination, we will obtain a CT abdomen pelvis with contrast. ED Course: I independently interpreted the laboratory studies, which show no significant leukocytosis, anemia, or thrombocytopenia. The chemistry panel is without evidence of electrolyte abnormality, kidney dysfunction, or liver injury. Lipase is low, and urinalysis is noninfectious. Troponin was negative x 2 checks, making ischemia highly unlikely. CT scan was obtained, and discussed with the radiologist. There is evidence for pelvic congestion syndrome, a borderline enlarged spleen, but no acute findings to explain the patient's symptoms. The patient unfortunately had a strong reaction to the Dilaudid administered, with nausea and lightheadedness. She rested in our emergency department and received a dose of Zofran for management of her symptoms, and ultimately had improvement in both her pain and her adverse medication effects. Dilaudid was added to her allergy list given the history of similar adverse reaction in the past. I shared the findings with the patient, and encouraged conservative management with Tylenol and ibuprofen, good hydration and nutrition, and provided her with a short course of Zofran for any ongoing nausea that she experiences at home. I did recommend that she follow-up with her outpatient providers for reassessment, given her ongoing symptoms without clear diagnosis in this emergency department visit. At this time, the patient has had a full medical evaluation and is safe for discharge to home. They are hemodynamically stable, ambulatory, and tolerating PO. They are understanding of the follow-up plan and return precautions. They left our facility without incident. Nusrat Tejada MD Related Data Home Medications ?Medication ?Instructions ?Recorded ?Confirmed Unknown [No Known Home Meds] 01/19/24 03/07/24 Allergies Allergy/AdvReac Type Severity Reaction Status Date / Time azithromycin Allergy Severe Hives Verified 03/07/24 09:02 chlorhexidine Allergy Intermediate hives, itch Verified 03/07/24 09:02 erythromycin lactobionate Allergy Intermediate Hives Verified 03/07/24 09:02 (From Erythrocin) hydromorphone (From Dilaudid) AdvReac Severe Other (See Verified 03/07/24 10:29 Comment) General Stated Complaint: Abd Prob ELIEL: 3 Course Vital Signs Vital signs: Vital Signs Temperature 36.5 C 03/07/24 09:00 Pulse 92 H 03/07/24 09:00 Respiratory Rate 18 03/07/24 09:00 Blood Pressure 140/85 03/07/24 09:00 Pulse Oximetry 100 03/07/24 09:00 Temperature 36.5 C 03/07/24 09:00 Temperature Source Oral 03/07/24 09:00 Pulse 92 H 03/07/24 09:00 Respiratory Rate 18 03/07/24 09:00 Respiratory Effort Normal, Non-Labored 03/07/24 09:02 Blood Pressure 140/85 03/07/24 09:00 Blood Pressure Position Sitting 03/07/24 09:00 Pulse Oximetry 100 03/07/24 09:00 Oxygen Delivery Method Room Air 03/07/24 09:00 Oxygen Flow Rate 0 03/07/24 09:00 Pain Level 8 03/07/24 09:00 Medical Decision Making Quality:SDOH Health Related Social Needs: No Data to Display PFSH All Active Problems (Updated 03/07/24 @ 12:56 by Nusrat Tejada MD) Abdominal pain of unknown etiology (Acute) COVID-19 (Acute) Bilateral hip pain (Acute) Osteoarthritis (Chronic) Overactive bladder (Acute) Migraine (Chronic) DANTE III (cervical intraepithelial neoplasia III) (Acute 12/01/15) Hx of breast cancer (Chronic 01/22/13) 01/2005. L breast T2N0M0. Infiltrating ductal carcinoma. s/p chemo and XRT. 07/2007. T1N0M0. Adjuvant chemo. 10/2008.Bilateral prophylactic mastectomy. Staged breast reconstruction Neg BRCA-1,2. ANGELA neg. High risk HPV infection (Acute 10/13/15) LGSIL on Pap smear of cervix (Acute 11/16/15) Moderate dysplasia of cervix (DANTE II) (Acute 12/01/15) Chemotherapy-induced peripheral neuropathy (Chronic) last dose +10 years ago Bilateral carpal tunnel syndrome (Acute) Cubital tunnel syndrome on right (Acute) ÁNGEL (obstructive sleep apnea) (Chronic) Achilles tendinitis, right leg (Acute) s/p open debridement of calcaneal bone spurs and calcific achilles tendinitis with joaquin resection and achilles repair DOS 10/06/2020. Joaquin's deformity of right heel (Acute) s/p open debridement of calcaneal bone spurs and calcific achilles tendinitis with joaquin resection and achilles repair DOS 10/06/2020. Nonsustained ventricular tachycardia (Acute) Intermittent palpitations (Acute) Exertional dyspnea (Acute) Paresthesias (Acute) Peripheral neuropathy (Acute) H/O abnormal cervical Papanicolaou smear (Acute) GERD (gastroesophageal reflux disease) (Chronic) Low back pain (Acute) Anxiety about health (Acute) Tinnitus of both ears (Acute) Hyperacusis of both ears (Acute) Urinary frequency (Acute) Cold intolerance (Acute) Urge incontinence (Acute) Medical History History of postoperative nausea COVID-19 (~10/25/21) Increased body mass index (BMI) Abdominal pain, RLQ Right flank pain Esotropia Menopause Duodenal ulcer Shoulder joint pain Pruritus Knee joint pain Arm paresthesia, left Hyperlipidemia Chest pain Pt. states she had this fully worked up, it was not chest pain, but she was dehydrated. Generalized pruritus Dysphagia Jaw pain Headache Gastritis Sleep apnea Pancreatitis Surgical History History of lumpectomy of right breast History of reversal of tubal ligation History of lumpectomy of left breast History of bunionectomy H/O tubal ligation Hx of Achilles tendon repair breast reconstruction Breast, Mastectomy Bilateral Family History Father Hypothyroidism Hyperlipidemia CAD (coronary artery disease) Depression COPD (chronic obstructive pulmonary disease) Mother Hypothyroidism Goiter Memory impairment Sister , 54 Breast cancer Sister Depression Sister Depression Hypothyroidism Daughter No problems noted. 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 [employer] Pets and animals: Yes Pets and animals: dog(s) Sexually active: Yes Do you think of yourself as: straight/heterosexual Current gender identity: female What is your relationship status?: living with partner How often do you talk on the phone with friends or family?: three or more times per week How often do you get together with friends or relatives?: three or more times per week How often do you attend holiness or lutheran services?: 4 or more times per year Do you belong to any clubs or organized social groups?: yes Panel score (0-1 are the most socially isolated patients): 4 What type of physical activity do you participate in: none Frequency: other Details: occasionally, due to fatigue. Diana/Sabianism: Bahai Special diana needs: No Seatbelt use: always Helmet use: Yes Helmet use: always Drive intox or ride w/intox over the road driver: No Do you feel safe at home: Yes Do you feel safe in your relationship?: Yes
--- OUTSIDE RECORDS SUMMARY | 2024-03-07 09:22 | XMS_ITS | Clinical Summary ---
Author Organization [facility] Address [facility] [place] [address] Care Team Providers Care Concession Attendant Name Role Phone Marlon Levine MD Primary Care Provider [phone] Allergies Active Allergy Reactions Criticality Noted Date [...] of 2) 08/29/2021 Covid-19 Vaccine ( - 2023-2 5 season) 2023 Influenza (Flu) vaccine (1 o f 1 - Influenza standard series) 11/26/2023 01/22/2009, 02/21/2006 Diabetes Screening (HgbA1C o r Glucose) Discontinued 06/13/2013, 04/29/2011, 04/28/2011, Additional history exists Procedures Procedure Name Priority Date/Time Associated Diagnosis Comments HPV Routine 07/26/2016 11:55 AM EDT FURNITURE FINISHER HELPER CYTOLOGY FINAL REPORT Routine 07/26/2016 11:55 AM EDT GLUCOSE STAT 06/13/2013 7:30 PM EDT from Last 3 Months or Most Recently Relevant to Health Maintenance Results * (ABNORMAL) HPV (07/26/2016 11:55 AM EDT) HPV16 NEGATIVE NEGATIVE [facility] HPV 18 NEGATIVE NEGATIVE [facility] HPV Other HR POSITIVE(A) NEGATIVE [facility] HPV Interpretation See Comment [facility] Comment: POSITIVE for high-risk HPV* [...] Lab Valentina Moore MD PATHOLOGY/CYTOLOGY O RDERABLES [facility] [place] [address] * Splitter Machine Cytology Final Report (07/26/2016 11:55 AM EDT) Splitter Machine Cytology Final Report [id number] ?Location: 5L The signing pathologist has (i) [...] Clinical Genomics and Advanced Technology (CGAT) at [facility]. ? - John Jolley, PhD, [facility], Director-[facility] _ Electronically signed by: ??Lab Review, Molecular Genetics Verified: ??08/12/2016 ? Splitter Machine Final DIAGNOSIS Epithelial Cell Abnormality Atypical Squamous [...] I.U.D.?: ? No Pelvic Radiation: ?No Prior FURNITURE FINISHER HELPER Therapy?: ?[facility] . CLINICAL INFORMATION Hist [...] variables. ??For further information please contact the [facility] Laboratory. Reference: ??Roger LADD. ??Architectural Associate of Pap Smear Results. ??In: ??Aureliano BS, [place] HH, ed. ??The Pap Smear. ??[place]: ??Edilberto, 2002: ??71-77. [facility] 07/26/2016 11:5 5 AM EDT Valentina Moore MD PATHOLOGY/CYTOLOGY Miguel MANCUSO [facility] [place] [address] * Glucose, random (06/13/2013 7:30 PM EDT) Glucose 74 60 - 199 mg/dL [facility] Comment:Diabetes: >=200 mg/d L plus symptoms Blood specimen (specimen) 06/13/2013 7:30 PM EDT 06/13/2013 7:38 PM EDT Narrative Resulting Agency Comment Spec In Lab Wicho Pizano MD CHEMISTRY ORDERABLES [facility] from Last 3 Months or Most Recently Relevant to Health Maintenance Advance Directives * Full Code (Latest Code Status on File) Date Activated Date Inactivated Comments 04/27/2011 6:02 PM 04/30/2011 5:15 PM Question Answer Comments Order Status: Initial Order Does patient have decision m aking capacity? Yes, Order is based on Patients wishes. Care Teams Concession Attendant Relationship Specialty Start Date End Date Marlon Levine MD [address] [place] [address] PCP - General 06/20/12
--- OUTSIDE RECORDS SUMMARY | 2024-03-07 09:22 | XMS_ITS | Encounter Summary ---
Author Organization [facility] [place] [address] Care Team Providers Care Coach Cleaner Name Role Phone Marlon Levine MD Primary Care Provider [phone] Encounter Details Date Type Department Care Team (Late st Contact Info) Description 07/01/2013 1:00 PM EDT - 07/01/2013 1:30 PM EDT Surgery [place] [phone] Tali Kamara MD [facility] [place] [address] EGD, UPPER GI ENDOSCOPY (WRVU 2.09) Social [...] not get better as expected. Monday-Monday Clinic [phone] 8a-5p Same Day Endo [phone] 7a-8p Otherwise contact [phone] and ask to speak to the broommaker sales correspondent Follow-up care is a [place] part [...] PM EDT 07/01/2013 2:37 PM EDT [facility] 07/01/2013 2:37 PM EDT Specimen requisition ordered. ??Separate Pathology report to follow Tali Kamara MD PATHOLOGY/CYTOLOGY O [facility] * UPPER GI ENDOSCOPY (07/01/2013 2:09 PM EDT) UPPER GI ENDOSCOPY [facility] Endoscopy Patient Name: Antonia Lance ? Procedure Date: 07/01/2013 2:09 PM ? N: [id number] ? Date of : 1970 ? Age: 42 ? Order #: [id number] ? Procedure: ? Upper GI endoscopy Indications: ? Epigastric abdominal pain Providers: ? Tali Kamara MD, Tari Chen MD, ? Suraj Silva, RN, Nayla Torres. ? [place] Referring : ?Marlon Levine MD Medicines: ? [...] CRNA) documented in this encounter Care Teams Coach Cleaner Relationship Specialty Start Date End Date Marlon Levine MD [address] [place] [address] PCP - General 06/20/12 documented as of this encounter
--- OUTSIDE RECORDS SUMMARY | 2024-03-07 09:22 | XMS_ITS | Encounter Summary ---
Author Organization [facility] Address [facility] [place] [address] Care Team Providers Care Insurance Broker Name Role Phone Marlon Levine MD Primary Care Provider + [phone] Reason for Visit * Reason Comments Follow-up Encounter Details Date Type Department Care Team (Late st Contact Info) Description 06/21/2013 10:00 AM EDT Follow-Up [place] [address] Tari Chen MD [facility] [place] [address] Weight loss (Primary Dx) Discharge Disposition: Home [...] labwork; most recent ED visit was at [facility] 06/13/13. Pt was sent home with TID dicyclomine --Presented to [facility] ED with abdominal pain, DC from ED [...] weight documented in this encounter Care Teams Insurance Broker Relationship Specialty Start Date End Date Marlon Levine MD [address] [place] [address] PCP - General 06/20/12 documented as of this encounter
--- OUTSIDE RECORDS SUMMARY | 2024-03-07 09:22 | XMS_ITS | Encounter Summary ---
Author Organization [facility] Address [facility] [place] [address] Care Team Providers Care Cold Rolling Machine Setter Name Role Phone Marlon Levine MD Primary Care Provider [phone] Reason for Referral * Consultation (Routine) - Closed Specialty Diagnoses / Procedures Referred By Mateo sims Referred To Contact Hematology and Oncology Diagnoses Bilateral breast cancer History of breast cancer, family history of breast cancer Procedures Consult and treat John Beltran MD [facility] [place] [address] Stj Hem Onc Infusion [address] [place] [phone] Referral ID Status Reason Start Date Expiration Date V isits Requested Visits Authorized [id number] Closed Consult, Test & Treat 11/22/2013 05/21/2014 1 1 Reason for Visit * Reason Comments Breast Cancer Encounter Details Date Type Department Care Team (Late st Contact Info) Description 11/22/2013 3:30 PM EDT Follow-Up Hematology Oncology at [address] [address] John Beltran MD [facility] [place] [address] Bilateral breast cancer (Primary Dx) Discharge Disposition: [...] negative. Ten LNs were seen, all negative. ER/UT negative. HER2/cynthia negative. B. Four cycles of [...] There was no ALI or perineural invasion. ER/UT negative. HER2/cynthia negative by FISH. B. In [...] she has a sister who lives in [place] and unfortunately has stage IV breast cancer. [...] Primary documented in this encounter Care Teams Cold Rolling Machine Setter Relationship Specialty Start Date End Date Marlon Levine MD [address] [place] [id number] PCP - General 06/20/12 documented as of this encounter
--- OUTSIDE RECORDS SUMMARY | 2024-03-07 09:22 | XMS_ITS | Encounter Summary ---
Author Organization [facility] [place] [address] Care Team Providers Care Machine Hoop Maker Name Role Phone Marlon Levine MD Primary Care Provider [phone] Encounter Details Date Type Department Care Team (Late st Contact Info) Description 06/15/2017 2:15 PM EDT Office Visit Hematology/Oncology at [address] [phone] Ingrid Delacruz, WEIGHT CLERK [address] [facility] [place] [place] [address] Malignant neoplasm of female breast, unspecified estrogen [...] this encounter Progress Notes * Ingrid Delacruz, WEIGHT CLERK - 06/15/2017 2:15 PM EDT Subjective: Patient [...] breast cancer history and now her recent ZIPPER SETTER history, she was evaluated and followed at [facility] and have given her a referral to Valentina Moore MD. I encouraged a yearly visit with her PCP last year however this year asks if she needs to see one for more than PRN illness issues- I toldher that an annual exam and basic labs of CBC and CMP are recommended yearly along with her ZIPPER SETTER fwup. Her daughter has not yet started [...] or by age 30. Ingrid Delacruz, MSN, PHARMACY GRAD INTERN, AOCN Hematology/Oncology Nurse Practitioner [place], [place] [phone] Medical Oncology follow-up is based on ASCO [...] breast documented in this encounter Care Teams Machine Hoop Maker Relationship Specialty Start Date End Date Marlon Levine MD [address] [place] [id number] PCP - General 06/20/12 documented as of this encounter
--- OUTSIDE RECORDS SUMMARY | 2024-03-07 09:22 | XMS_ITS | Encounter Summary ---
Author Organization [facility] Address [facility] [place] [address] Care Team Providers Care Baker Head Name Role Phone Marlon Levine MD Primary Care Provider [phone] Reason for Visit * Reason Comments Follow-up Encounter Details Date Type Department Care Team (Late st Contact Info) Description 04/03/2015 3:30 PM EST Office Visit Hematology/Oncology at [address] [phone] John Beltran MD [facility] [address] Bilateral malignant neoplasm of breast in female, [...] 04/02/2015 9:00 PM EST Subjective: Patient ID: Antonai Jennings is a 44 y.o. female. Problem [...] breast documented in this encounter Care Teams Baker Head Relationship Specialty Start Date End Date Marlon Levine MD [address] [place] [id number] PCP - General 06/20/12 documented as of this encounter
--- OUTSIDE RECORDS SUMMARY | 2024-03-07 09:22 | XMS_ITS | Encounter Summary ---
Author Organization [facility] [place] [address] Care Team Providers Care In Home Aide Name Role Phone Marlon Levine MD Primary Care Provider [phone] Reason for Visit * Reason Onset Date Comments Results 08/25/2016 Encounter Details Date Type Department Care Team (Late st Contact Info) Description 08/25/2016 Telephone Obstetrics [place] [address] Valentina Moore MD [facility] DR OBSTETRICS [place] [address] Results Social History Tobacco Use Types Packs/Day [...] on filedocumented in this encounter Care Teams In Home Aide Relationship Specialty Start Date End Date Marlon Levine MD [address] [place] [address] PCP - General 06/20/12 documented as of this encounter
--- OUTSIDE RECORDS SUMMARY | 2024-03-07 09:22 | XMS_ITS | Encounter Summary ---
Author Organization [facility] [place] [address] Care Team Providers Care Director Of Distance Learning Name Role Phone Marlon Levine MD Primary Care Provider + [phone] Reason for Visit * Reason Onset Date Comments Results 08/18/2016 Encounter Details Date Type Department Care Team (Late st Contact Info) Description 08/18/2016 Telephone Obstetrics [place] [address] Valentina Moore MD [facility] DR OBSTETRICS [place] [address] Results Social History Tobacco Use Types Packs/Day [...] in this encounter Care Teams Director Of Distance Learning Relationship Specialty Start Date End Date Marlon Levine MD [address] [place] [address] PCP - General 06/20/12 documented as of this encounter
--- OUTSIDE RECORDS SUMMARY | 2024-03-07 09:22 | XMS_ITS | Encounter Summary ---
Author Organization [facility] [place] [address] Care Team Providers Care Crayon Sawyer Name Role Phone Marlon Levine MD Primary Care Provider [phone] Encounter Details Date Type Department Care Team (Late st Contact Info) Description 05/07/2014 Notes [place] [address] Tania Hassan, RN Social History Tobacco Use [...] on filedocumented in this encounter Care Teams Crayon Sawyer Relationship Specialty Start Date End Date Marlon Levine MD [address] [place] [address] PCP - General 06/20/12 documented as of this encounter
--- OUTSIDE RECORDS SUMMARY | 2024-03-07 09:22 | XMS_ITS | Encounter Summary ---
Author Organization [facility] [place] [address] Care Team Providers Care Document Imaging Specialist Name Role Phone Marlon Levine MD Primary Care Provider + [phone] Encounter Details Date Type Department Care Team (Late st Contact Info) Description 07/01/2013 2:09 PM EDT Anesthesia Event [place] [address] Satnam Guerra MD [facility] [place] [address] Mauro Gold CRNA [facility] [place] [address] Anesthesia Record Procedure Summary Procedure Name Responsible [...] 1222; median cubital vein (antecubital fossa), right; thyk-bqc-slzbor catheter system; 22 gauge, 1 in length; [...] ENDOSCOPIC ULTRASOUND performed by CHUCHO ZAPATA at [facility] ENDOSCOPY History Substance Use Topics ??? [...] r documented in this encounter Care Teams Document Imaging Specialist Relationship Specialty Start Date End Date Marlon Levine MD [address] [place] [address] PCP - General 06/20/12 documented as of this encounter
--- OUTSIDE RECORDS SUMMARY | 2024-03-07 09:22 | XMS_ITS | Encounter Summary ---
Author Organization [facility] [place] [address] Care Team Providers Care Limnologist Name Role Phone Marlon Levine MD Primary Care Provider + [phone] Reason for Visit * Reason Comments Skin Lesion Encounter Details Date Type Department Care Team (Late st Contact Info) Description 08/31/2016 8:45 AM EDT Office Visit Dermatology at [facility] [address] [place] [address] Kenrick Chen MD [address] [facility] [place] [address] Neoplasm of uncertain behavior of skin (Primary [...] Chen MD - 09/01/2016 7:58 PM EDT [id number] Skin, right tip of nose, shave biopsy: Molluscum contagiosum. Molluscum Contagiosum, Nose Viral infection. Shave biopsy should have treated this. No further treatment necessary. * Kenrick Chen MD - 08/31/2016 8:45 AM EDT Images from the original note were not included. DEPARTMENT DERMATOLOGY AT [facility] Dermatology At [facility] [address] [facility] [address] NEW PATIENT Chief Complaint: Lesion on nose [...] Chen MD FAAD Section of Dermatology [facility] documented in this encounter Plan of Treatment Not on file documented as of this encounter Procedures Procedure Name Priority Date/Time Associated Diagnosis Comments SPECIMEN TO PATHOLOGY (NON-OR) Routine 08/31/2016 10:38 AM EDT Neoplasm of uncertain behavior of skin SURGICAL PATHOLOGY REPORT Routine 08/31/2016 10:38 AM EDT documented in this encounter Results * Surgical Pathology Report (08/31/2016 10:38 AM EDT) Final Diagnosis [id number] ?Location: HDM The signing pathologist has (i) [...] Bisected. (T1) ??ejr 09/01/2016 12:11 PM EDT [facility] SPECIMEN FROM SKIN / Unknown 08/31/2016 10:38 AM EDT 08/31/2016 10:38 AM EDT Kenrick Chen MD PATHOLOGY/CYTOLOGY O RDERABLES [facility] [place] [address] * Specimen to Pathology (NON-OR) (08/31/2016 10:38 AM EDT) AP Specimen 08/31/2016 10:3 8 AM EDT 08/31/2016 12:47 PM EDT Narrative [facility] - 08/31/2016 12:48 PM EDT Specimen requisition ordered. ??Separate Pathology report to follow Resulting Agency Comment Spec In Lab Kenrick Chen MD PATHOLOGY/CYTOLOGY O BARTOLOME [facility] [place] [address] documented in this encounter Visit Diagnoses Diagnosis Neoplasm of uncertain behavior of skin- Primary documented in this encounter Care Teams Limnologist Relationship Specialty Start Date End Date Marlon Levine MD [address] [place] [address] PCP - General 06/20/12 documented as of this encounter
--- OUTSIDE RECORDS SUMMARY | 2024-03-07 09:22 | XMS_ITS | Encounter Summary ---
Author Organization [facility] [place] [address] Care Team Providers Care Consumer Sales Representative Name Role Phone Marlon Levine MD Primary Care Provider + [phone] Encounter Details Date Type Department Care Team (Late st Contact Info) Description 07/01/2013 Orders [place] [address] Tari Chen MD [facility] [place] [address] Social History Tobacco Use Types Packs/Day Years [...] on filedocumented in this encounter Care Teams Consumer Sales Representative Relationship Specialty Start Date End Date Marlon Levine MD [address] [place] [address] PCP - General 06/20/12 documented as of this encounter
--- OUTSIDE RECORDS SUMMARY | 2024-03-07 09:22 | XMS_ITS | Encounter Summary ---
Author Organization [facility] Address [facility] [place] [address] Care Team Providers Care Provider Contracting Consultant Name Role Phone Marlon Levine MD Primary Care Provider [phone] Reason for Referral * Consultation (Routine) - Closed Specialty Diagnoses / Procedures Referred By Contac t Referred To Contact Obstetrics and Gynecology Diagnoses Malignant neoplasm of female breast, unspecified laterality, unspecified site of breast Ingrid Delacruz APRN [address] [place] [address] Valentina Moore MD [facility] OBSTETRICS [place] [address] Referral ID Status Reason Start Date Expiration Date V isits Requested Visits Authorized [id number] Closed Assume Subset of Care 05/27/2016 05/27/2017 1 1 Encounter Details Date Type Department Care Team (Late st Contact Info) Description 05/27/2016 8:45 AM EST Office Visit Hematology/Oncology at [address] [address] Ingrid Delacruz APRN [address] [place] [address] Malignant neoplasm of female breast, [...] this encounter Progress Notes * Ingrid Delacruz, SAWMILL WORKER - 05/27/2016 8:45 AM EST Subjective: Patient ID: Antonia Jennings is a 45 y.o. female. Problem List: 1. Cancer of the left breast, T2, N0, M0. A. Dx'd 01/29, s/p lumpectomy and ALND. Path-2.5-cm infiltrating ductal carcinoma, SBR score of 8. Final margins of resection were negative. Ten LNs were seen, all negative. ER/OH negative. HER2/cynthia negative. B. Four cycles of [...] There was no ALI or perineural invasion. ER/OH negative. HER2/cynthia negative by FISH. B. In [...] breast cancer history and now her recent SHEEP HERDER history, I would prefer that she be evaluated and followed at [facility] and have given her a referral to Valentina Moore MD and obtained her records which will be scanned into scanned doc tab of her [facility] chart. I also reviewed s&s of [...] or by age 31. Ingrid Delacruz, MSN, TRANSITIONAL CARE NURSE, AOCN Hematology/Oncology Nurse Practitioner [place], [place] [phone] documented in this encounter Plan of Treatment Scheduled Referrals Name Type Priority Associated Diagnoses Orde r Schedule Referral to Ob-Quality Assurance Group Leader Outpatient Referral Routine Malignant Neoplasm Of Female [...] breast documented in this encounter Care Teams Provider Contracting Consultant Relationship Specialty Start Date End Date Marlon Levine MD [address] [place] [address] PCP - General 06/20/12 documented as of this encounter
--- OUTSIDE RECORDS SUMMARY | 2024-03-07 09:22 | XMS_ITS | Encounter Summary ---
Author Organization [facility] Address [facility] [place] [address] Care Team Providers Care Motion Picture Set Grip Name Role Phone Marlon Levine MD Primary Care Provider + [phone] Reason for Visit * Reason Onset Date Comments Results 06/23/2016 Encounter Details Date Type Department Care Team (Late st Contact Info) Description 06/23/2016 Telephone Obstetrics [place] [address] Valentina Moore MD [facility] DR OBSTETRICS [place] [address] Results Social History Tobacco Use Types Packs/Day [...] like clarification. You can reach her at: [phone] Thanks, Mara If she needs to be [...] on filedocumented in this encounter Care Teams Motion Picture Set Grip Relationship Specialty Start Date End Date Marlon Levine MD [address] [place] [address] PCP - General 06/20/12 documented as of this encounter
--- OUTSIDE RECORDS SUMMARY | 2024-03-07 09:22 | XMS_ITS | Encounter Summary ---
Author Organization [facility] [place] [address] Care Team Providers Care Reimbursement Analyst Name Role Phone Marlon Levine MD Primary Care Provider + [phone] Encounter Details Date Type Department Care Team (Late st Contact Info) Description 11/05/2013 [place] [phone] Laury Katz RN Social History Tobacco Use [...] on filedocumented in this encounter Care Teams Reimbursement Analyst Relationship Specialty Start Date End Date Marlon Levine MD [address] [place] [address] PCP - General 06/20/12 documented as of this encounter
--- OUTSIDE RECORDS SUMMARY | 2024-03-07 09:22 | XMS_ITS | Encounter Summary ---
Author Organization [facility] Address [facility] [place] [address] Care Team Providers Care Pan Washer Name Role Phone Marlon Levine MD Primary Care Provider + [phone] Encounter Details Date Type Department Care Team (Late st Contact Info) Description 07/26/2016 10:00 AM EDT Office Visit Obstetrics [place] [address] Valentina Moore MD [facility] [address] OBSTETRICS [place] [address] Cervical dysplasia, moderate Social History Tobacco Use [...] history is as follows: Had LEEP in [place] in 12/2015 - confirmed DANTE 2 with negative margins. No ECC done at that time. Has not had any follow-up yet. She saw Ingrid Delacruz NP in the oncology division recently, who recommended that she have a pipe stem aligner here at [facility] to make sure she is treated and [...] UPPER EUS- ENDOSCOPIC ULTRASOUND performed by CHUCHO ZPAATA at [facility] ENDOSCOPY ??? PRO UPPER GI ENDOSCOPY, DIAGNOSTIC ?? 07/01/2013 ?? EGD, UPPER GI ENDOSCOPY performed by Tali Kamara MD at [facility] ENDOSCOPY ?? Family History Problem Relation Age [...] will schedule her for a routine annual employment interviewer visit. Will get in touch regarding results as soon as they are available. ?? Valentina Moore MD documented in this encounter Plan of Treatment Not on file documented as of this encounter Visit Diagnoses Diagnosis Cervical dysplasia, moderate Moderate dysplasia of cervix documented in this encounter Care Teams Pan Washer Relationship Specialty Start Date End Date Marlon Levine MD [address] [place] [address] PCP - General 06/20/12 documented as of this encounter
--- OUTSIDE RECORDS SUMMARY | 2024-03-07 09:22 | XMS_ITS | Encounter Summary ---
Author Organization [facility] Address [facility] [place] [address] Care Team Providers Care Retread Operator Name Role Phone Marlon Levine MD Primary Care Provider [phone] Reason for Visit * Reason Comments Colposcopy Encounter Details Date Type Department Care Team (Latest Contact Info) Description 08/23/2016 9:30 AM EDT Procedure visit Obstetrics [place] [address] Valentina Moore MD [facility] DR OBSTET[place] [address] Cervical dysplasia Social History Tobacco Use Types [...] Report (08/23/2016 9:54 AM EDT) Final Diagnosis [id number] ?Location: 5L The signing pathologist has (i) [...] ing: (T1) ??nurys 08/25/2016 11:04 AM EDT [facility] ENDOCERVICAL STRUCTURE / Unknown 08/23/2016 9:54 AM EDT 08/23/2016 9:54 AM EDT Valentina Moore MD PATHOLOGY/CYTOLOGY O RDERABLES [facility] [place] [address] * Specimen to Pathology (NON-OR) (08/23/2016 9:54 AM EDT) AP Specimen 08/23/2016 9:54 AM EDT 08/23/2016 9:54 AM EDT Narrative [facility] - 08/23/2016 9:54 AM EDT Specimen requisition ordered. ??Separate Pathology report to follow Valentina Moore MD PATHOLOGY/CYTOLOGY O BARTOLOME [facility] [place] [address] documented in this encounter Visit Diagnoses Diagnosis Cervical dysplasia Dysplasia of cervix, unspecified documented in this encounter Care Teams Retread Operator Relationship Specialty Start Date End Date Marlon Levine MD [address] [place] [address] PCP - General 06/20/12 documented as of this encounter
--- OUTSIDE RECORDS SUMMARY | 2024-03-07 09:22 | XMS_ITS | Encounter Summary ---
Author Organization [facility] [place] [address] Care Team Providers Care Galvanizer Zinc Name Role Phone Marlon Levine MD Primary Care Provider + [phone] Encounter Details Date Type Department Care Team (Late st Contact Info) Description 07/03/2013 Telephone [place] [address] Elena Graham RN Social History Tobacco Use [...] on filedocumented in this encounter Care Teams Galvanizer Zinc Relationship Specialty Start Date End Date Marlon Levine MD [address] [place] [address] PCP - General 06/20/12 documented as of this encounter
--- OUTSIDE RECORDS SUMMARY | 2024-03-07 09:22 | XMS_ITS | Encounter Summary ---
Author Organization [facility] [place] [address] Care Team Providers Care Word Processor Operator Name Role Phone Marlon Levine MD Primary Care Provider + [phone] Encounter Details Date Type Department Care Team (Late st Contact Info) Description 07/29/2016 Telephone Obstetrics [place] [address] Valentina Moore MD [facility] [address] OBSTET[place]ICS [place] [address] Social History Tobacco Use Types Packs/Day Years [...] history is as follows: Had LEEP in [place] in 12/2015 - confirmed DANTE 2 with negative margins. No ECC done at that time. Has not had any follow-up yet. She saw Ingrid Delacruz NP in the oncology division recently, who recommended that she have a right of way clearer here at [facility] to make sure she [...] ENDOSCOPIC ULTRASOUND performed by CHUCHO ZAPATA at [facility] ENDOSCOPY ??? PRO UPPER GI ENDOSCOPY, DIAGNOSTIC 07/01/2013 EGD, UPPER GI ENDOSCOPY performed by Tali Kamara MD at [facility] ENDOSCOPY Family History Problem Relation [...] will schedule her for a routine annual ornament stapler visit. Will get in touch regarding results as soon as they are available. Valentina Moore MD documented in this encounter Plan of Treatment Not on file documented as of this encounter Visit Diagnoses Not on filedocumented in this encounter Care Teams Word Processor Operator Relationship Specialty Start Date End Date Marlon Levine MD [address] [place] [address] PCP - General 06/20/12 documented as of this encounter
--- OUTSIDE RECORDS SUMMARY | 2024-03-07 09:22 | XMS_ITS | Encounter Summary ---
Author Organization [facility] [place] [address] Care Team Providers Care Chore Worker Name Role Phone Marlon Levine MD Primary Care Provider [phone] Encounter Details Date Type Department Care Team (Latest Contact Info) Description 06/13/2017 - 06/13/2017 11:59 PM EDT Hospital Encounter Radiology Library at [facility] [place] [address] Ingrid Delacruz, MUSHTAQ [address] [facility] [place] [address] Discharge Disposition: Home Social History Tobacco Use [...] nuclear medicine (06/13/2017 12:00 AM EDT) Narrative [facility] - 06/14/2017 10:54 AM EDT This exam is for storage only and is auto-finalizing. Ingrid Delacruz APRN IMG FILM LIBRARY ORD ERABLES Performing Organization Address City/State/[facility] Co de Phone Number [place], [place] documented in this encounter Visit Diagnoses Not on filedocumented in this encounter Care Teams Chore Worker Relationship Specialty Start Date End Date Marlon Levine MD [address] [place] [address] PCP - General 06/20/12 documented as of this encounter
--- OUTSIDE RECORDS SUMMARY | 2024-03-07 09:22 | XMS_ITS | Encounter Summary ---
Author Organization [facility] [place] [address] Care Team Providers Care Value Engineer Name Role Phone Marlon Levine MD Primary Care Provider + [phone] Encounter Details Date Type Department Care Team (Late st Contact Info) Description 06/24/2013 Telephone [place] [address] Elena Graham, RN Social History Tobacco Use [...] on filedocumented in this encounter Care Teams Value Engineer Relationship Specialty Start Date End Date Marlon Levine MD [address] [place] [address] PCP - General 06/20/12 documented as of this encounter
--- OUTSIDE RECORDS SUMMARY | 2024-03-07 09:22 | XMS_ITS | Encounter Summary ---
Author Organization [facility] Address [facility] [place] [address] Care Team Providers Care Licensed Optician Name Role Phone Marlon Levine MD Primary Care Provider + [phone] Reason for Visit * Reason Comments Breast Cancer Encounter Details Date Type Department Care Team (Late st Contact Info) Description 03/07/2014 9:00 AM EST Office Visit Hematology Oncology at [address] [phone] John Beltran MD [facility] [place] [address] Malignant neoplasm of breast (female), unspecified site; [...] test result disclosure. Priscilla Rubi, our program paralegal secretary, will contact Antonia in the near future [...] breast documented in this encounter Care Teams Licensed Optician Relationship Specialty Start Date End Date Marlon Levine MD [address] [place] [address] PCP - General 06/20/12 documented as of this encounter
--- OUTSIDE RECORDS SUMMARY | 2024-03-07 09:22 | XMS_ITS | Encounter Summary ---
Author Organization [facility] [place] [address] Care Team Providers Care Heating Repair Technician Name Role Phone Marlon Levine MD Primary Care Provider [phone] Reason for Visit * Reason Onset Date Comments Other 05/07/2020 Encounter Details Date Type Department Care Team (Late st Contact Info) Description 05/07/2020 Telephone Hematology/Oncology at [address] [address] Ary Felix RN Other Social [...] on filedocumented in this encounter Care Teams Heating Repair Technician Relationship Specialty Start Date End Date Marlon Levine MD [address] [place] [address] PCP - General 06/20/12 documented as of this encounter
--- OUTSIDE RECORDS SUMMARY | 2024-03-07 09:22 | XMS_ITS | Encounter Summary ---
Author Organization [facility] [place] [address] Care Team Providers Care Occupational Therapy Aides Teacher Name Role Phone Marlon Levine MD Primary Care Provider + [phone] Encounter Details Date Type Department Care Team (Late st Contact Info) Description 11/08/2013 Telephone [place] [address] Jennifer Marin, RN Social History Tobacco Use [...] on filedocumented in this encounter Care Teams Occupational Therapy Aides Teacher Relationship Specialty Start Date End Date Marlon Levine MD [address] [place] [address] PCP - General 06/20/12 documented as of this encounter
--- OUTSIDE RECORDS SUMMARY | 2024-03-07 09:22 | XMS_ITS | Encounter Summary ---
Author Organization [facility] [place] [address] Care Team Providers Care Grails Web Application Developer Name Role Phone Marlon Levine MD Primary Care Provider [phone] Encounter Details Date Type Department Care Team (Latest Contact Info) Description 07/01/2013 11:53 AM EDT - 07/01/2013 3:24 PM EDT Hospital Encounter [place] [phone] Tali Kamara MD [facility] [place] [place] [address] Queenie Hicks MD [facility] [place] [address] Discharge Disposition: Home Social History Tobacco Use [...] not get better as expected. Monday-Monday Clinic [phone] 8a-5p Same Day Endo [phone] 7a-8p Otherwise contact [phone] and ask to speak to the physician intensivist recreational programs director Follow-up care is a [place] part [...] (07/01/2013 2:09 PM EDT) UPPER GI ENDOSCOPY [facility] Endoscopy Patient Name: Antonia Lance ? Procedure Date: 07/01/2013 2:09 PM ? N: [id number] ? Date of : 1970 ? Age: 42 ? Order #: [id number] ? Procedure: ? Upper GI endoscopy Indications: ? Epigastric abdominal pain Providers: ? Tali Kamara MD, Tari Chen MD, ? Suraj Silva, MICHELET, Nayla Torres. ? Chataignier Referring : ?Marlon Levine MD Medicines: ? [...] Gold CRNA)1435 (Anesthesia Volume Adjustment - Provider: Maruo Gold CRNA) documented in this encounter Care Teams Grails Web Application Developer Relationship Specialty Start Date End Date Marlon Levine MD [address] [place] [address] PCP - General 06/20/12 documented as of this encounter
--- OUTSIDE RECORDS SUMMARY | 2024-03-07 09:22 | XMS_ITS | Encounter Summary ---
Author Organization [facility] [place] [address] Care Team Providers Care Equipment Manager Name Role Phone Marlon Levine MD Primary Care Provider + [phone] Encounter Details Date Type Department Care Team (Late st Contact Info) Description 09/02/2016 Telephone Dermatology at [facility] [address] [place] [address] Kenrick Chen MD [address] [facility] [place] [address] Social History Tobacco Use Types Packs/Day Years [...] sent at 09/01/2016 7:58 PM EDT ----- [id number] Skin, right tip of nose, shave biopsy: Molluscum contagiosum. Molluscum Contagiosum, Nose Viral infection. Shave biopsy should have treated this. No further treatment necessary. documented in this encounter Plan of Treatment Not on file documented as of this encounter Visit Diagnoses Not on filedocumented in this encounter Care Teams Equipment Manager Relationship Specialty Start Date End Date Marlon Levine MD [address] [place] [address] PCP - General 06/20/12 documented as of this encounter
--- OUTSIDE RECORDS SUMMARY | 2024-03-07 09:22 | XMS_ITS | Encounter Summary ---
Author Organization Formerly [facility] [place] [address] Care Team Providers Care Camera Operator Name Role Phone Marlon eLvine MD Primary Care Provider [phone] Reason for Visit * Reason Onset Date Comments Labs Only 06/09/2017 Report today lab s Encounter Details Date Type Department Care Team (Late st Contact Info) Description 06/09/2017 Telephone Hematology/Oncology at [address] [phone] Mary Alice Naidu RN Labs [...] on filedocumented in this encounter Care Teams Camera Operator Relationship Specialty Start Date End Date Marlon Levine MD [address] [place] [address] PCP - General 06/20/12 documented as of this encounter
--- OUTSIDE RECORDS SUMMARY | 2024-03-07 09:22 | XMS_ITS | Encounter Summary ---
Author Organization [facility] Address [facility] [place] [address] Care Team Providers Care Solid Surface Fabricator Name Role Phone Marlon Levine MD Primary Care Provider [phone] Encounter Details Date Type Department Care Team (Latest Contact Info) Description 07/01/2013 3:28 PM EDT - 07/01/2013 11:59 PM EDT Hospital [place] [phone] CLINIC, Tali Loco MD [facility] [place] [address] Weight loss Discharge Disposition: Home Social History [...] mg documented in this encounter Care Teams Solid Surface Fabricator Relationship Specialty Start Date End Date Marlon Levine MD [address] [place] [address] PCP - General 06/20/12 documented as of this encounter
--- OUTSIDE RECORDS SUMMARY | 2024-03-07 09:22 | XMS_ITS | Encounter Summary ---
Author Organization [facility] [place] [address] Care Team Providers Care Social Media Specialist Name Role Phone Marlon Levine MD Primary Care Provider [phone] Encounter Details Date Type Department Care Team (Late st Contact Info) Description 07/26/2018 8:45 AM EDT Office Visit Hematology/Oncology at [address] [phone] Celeste Le APRN Malignant neoplasm of female breast, unspecified estrogen [...] breast cancer and unfortunately in 01/08 in [place]. She has another sister who had a [...] breast cancer history and now her recent SPOON MAKER history, she was evaluated and followed at [facility] and have given her a referral to Valentina Moore MD. I encouraged a yearly visit with her PCP last year however this year asks if she needs to see one for more than PRN illness issues- I told herthat an annual exam and basic labs of CBC and CMP are recommended yearly along with her SPOON MAKER fwup. Her daughter has not yet started [...] she has a sister who lived in [place] and unfortunately of stage IV breast cancer [...] breast documented in this encounter Care Teams Social Media Specialist Relationship Specialty Start Date End Date Marlon Levine MD [address] [place] [address] PCP - General 06/20/12 documented as of this encounter
--- OUTSIDE RECORDS SUMMARY | 2024-03-07 09:22 | XMS_ITS | Encounter Summary ---
Author Organization Formerly [facility] [place] [address] Care Team Providers Care Service Now Developer Name Role Phone Marlon Levine MD Primary Care Provider [phone] Encounter Details Date Type Department Care Team (Late st Contact Info) Description 06/09/2017 11:15 AM EDT Office Visit Hematology/Oncology at [address] [phone] Ingrid Delacruz, HOBBER [address] [facility] [place] [address] Malignant neoplasm of female breast, unspecified estrogen [...] this encounter Progress Notes * Ingrid Delacruz, HOBBER - 06/09/2017 11:15 AM EDT Subjective: Patient [...] breast cancer and unfortunately in 01/08 in [place]. She has another sister who had a [...] Screening Completed: After treatment completion Screening Location: [facility] Onc Objective: Physical Exam Constitutional: [...] breast cancer history and now her recent CONCRETE PAVER history, she was evaluated and followed at [facility] [place] and have given her a referral to Valentina Moore MD. I encouraged a yearly visit with her PCP last year however this year asks if she needs to see one for more than PRN illness issues- I toldher that an annual exam and basic labs of CBC and CMP are recommended yearly along with her CONCRETE PAVER fwup. Her daughter has not yet started screening. Given her bone pain and urine issues, I have ordered labs, a bone scan, and a urinalysis today, labs and urinalysis were entirely normal. I will plan to see her back in 2wks for fwup after her bone scan to discuss results. As noted above, she has a sister who lived in [place] and unfortunately of stage IV breast cancer [...] or by age 31. Ingrid Delacruz, MSN, CLIN APPLICATION SPECIALIST, AOCN Hematology/Oncology Nurse Practitioner [place], [place] [phone] documented in this encounter Plan of Treatment Not on file documented as of this encounter Visit Diagnoses Diagnosis Malignant neoplasm of female breast, unspecified estrogen receptor status, unspecified laterality, unspecified site of breast documented in this encounter Care Teams Service Now Developer Relationship Specialty Start Date End Date Marlon Levine MD [address] [place] [address] PCP - General 06/20/12 documented as of this encounter
--- OUTSIDE RECORDS SUMMARY | 2024-03-07 09:22 | XMS_ITS | Encounter Summary ---
Author Organization Formerly [facility] [place] [address] Care Team Providers Care Chain Puller Name Role Phone Maroln Levine MD Primary Care Provider + [phone] Encounter Details Date Type Department Care Team (Late Contact Info) Description 03/17/2014 Telephone Hematology [place] [phone] Ronda Cruz, MS [facility] DR OBSTETRICS & [place] [address] Social History Tobacco Use Types Packs/Day Years [...] the Familial Cancer Program on 03/07/2014 in [place] [facility]. She had previously had negative BRCA1/2 testing in 2005, but it did not seem as though she had the ANGELA part of the testing. She returned on 03/07 to have ANGELA done. I had received notification from [employer] that she actually did indeed have BARTtesting [...] on filedocumented in this encounter Care Teams Chain Puller Relationship Specialty Start Date End Date Marlon Levine MD [address] [place] [address] PCP - General 06/20/12 documented as of this encounter
--- OUTSIDE RECORDS SUMMARY | 2024-03-07 09:23 | XMS_ITS | Encounter Summary ---
Author Organization [facility] Address [facility] [place] [address] Care Team Providers Care Flying Teacher Name Role Phone Marlon Levine MD Primary Care Provider [phone] Encounter Details Date Type Department Care Team (Late st Contact Info) Description 05/30/2011 4:00 PM EST - 05/30/2011 5:00 PM EST Surgery [place] [address] Jag Tyler MD [facility] [place] [address] UPPER EUS- ENDOSCOPIC ULTRASOUND (WRVU 3.47) Social [...] Monday, 8:00 am to 5:00pm, . The medical records secretary will need your name, medical problem, and date of the bronchoscopy. After 5pm call [phone] and ask for the pulmonary doctor oncology coordinator. * Patient Instructions* Jag Tyler MD - 05/30/2011 5:33 PM EST Please see Recommendations in the Provation procedure report which is documented in the procedural note in E-DH. * Attachments The following attachments cannot be sent through Care Everywhere. * UPPER GI ENDOSCOPY: WHAT TO EXPECT AT HOME (SOUTH AFR[place]) documented in this encounter Medications at Time [...] Tyler MD - 05/30/2011 5:18 PM EST [facility] Operative Note Patient Name: Antonia Lance : [id number] MR#: [id number] Case Date: 05/30/2011 Surgeon: Surgeon(s) and Role: [...] (05/30/2011 4:42 PM EST) UPPER ENDOSCOPIC ULTRASOUND [facility] Endoscopy Patient Name: Antonia Lance ? Procedure Date: 05/30/2011 4:42 PM ? Date of : 1970 ? Age: 40 ? Order #: [id number] ? Procedure: ? Upper EUS Indications: ? Acute pancreatitis, f/up acute ? pancreatitis Providers: ? Jag Tyler MD, Martha Nava, ? RN, Ivory Eubanks, Light Cleaner Referring : ?Marlon Levine MD, Roxana Ojeda [...] nausea) documented in this encounter Care Teams Flying Teacher Relationship Specialty Start Date End Date Marlon Levine MD [address] [place] [address] PCP - General 02/16/10 06/19/12 documented as of this encounter
--- OUTSIDE RECORDS SUMMARY | 2024-03-07 09:23 | XMS_ITS | Encounter Summary ---
Author Organization Formerly [facility] Address [facility] [place] [address] Care Team Providers Care Vehicle Modification Technician Name Role Phone Marlon Levine MD Primary Care Provider [phone] Reason for Referral * Consultation (Routine) - Complete-Ref Provider Notified Specialty Diagnoses / Procedures Referred By Mateo sims Referred To Contact Ophthalmology Diagnoses Esotropia Erick Marx MD [facility] [place] [address] Maria C Gomez MD [facility] [place] [address] Referral ID Status Reason Start Date Expiration Date Visits Requested Visits Authorized [id number] Complete-Ref Provider Notified Consult, Test & Treat 08/09/2012 02/05/2013 1 1 Encounter Details Date Type Department Care Team (Late st Contact Info) Description 08/09/2012 12:45 PM EDT [place] [address] Erick Marx MD [facility] [place] [address] Migraine (Primary Dx); Esotropia Discharge Disposition: Home [...] notice that really until she saw an manager community development locally for headaches, and she was noted [...] 6 hours as needed. Allergies: Entered into GetYourGuide. Allergies Allergen Reactions ??? Adhesive Tape Rash [...] get a sleep evaluation next week at [facility]. Otherwise negative. In general, she appears in [...] 5/5 throughout. Reflexes 2/4 throughout. Coordination: Normal cimwmi-qjex-krpnfk and cncd-byrg-mkdj testing. Sensory exam is intact to light touch in the upper and lower extremities as well as vibration. Gait is normal including tandem. Romberg negative. Imaging Data: See history of presenting illness regarding recent unremarkable brain MRI, although I do not have the images. Per report it is normal. It was done at [facility] on June 19. Assessment: Antonia Lance is [...] unspecified documented in this encounter Care Teams Vehicle Modification Technician Relationship Specialty Start Date End Date Marlon Levine MD [address] [place] [address] PCP - General 06/20/12 documented as of this encounter
--- OUTSIDE RECORDS SUMMARY | 2024-03-07 09:23 | XMS_ITS | Encounter Summary ---
Author Organization [facility] [place] [address] Care Team Providers Care Director Of Critical Care Name Role Phone Marlon Levine MD Primary Care Provider + [phone] Encounter Details Date Type Department Care Team (Late st Contact Info) Description 04/21/2010 9:30 AM EST Follow-Up Neurology at [facility] [place] [place] [address] [address] [facility] [facility] [place] [address] Social History Tobacco Use Types Packs/Day Years [...] in this encounter Care Teams Director Of Critical Care Relationship Specialty Start Date End Date Marlon Levine MD [address] [place] [address] PCP - General 02/16/10 06/19/12 documented as of this encounter
--- OUTSIDE RECORDS SUMMARY | 2024-03-07 09:23 | XMS_ITS | Encounter Summary ---
[place] [address] Care Team Providers Care Excellence Leader Name Role Phone Marlon Levine MD Primary Care Provider [phone] Encounter Details Date Type Department Care Team (Late st Contact Info) Description 04/21/2010 2:00 PM EST Procedure visit [place] [address] Social History Tobacco Use Types Packs/Day Years Used Date Smoking Tobacco: Never Assessed Sex and Gender Information Value Date Recorded Sex Assigned at Not on file Gender Identity Not on file Sexual Orientation Not on file documented as of this encounter Plan of Treatment Not on file documented as of this encounter Visit Diagnoses Not on filedocumented in this encounter Care Teams Excellence Leader Relationship Specialty Start Date End Date Marlon Levine MD [address] [place] [address] PCP - General 02/16/10 06/19/12 documented as of this encounter
--- OUTSIDE RECORDS SUMMARY | 2024-03-07 09:23 | XMS_ITS | Encounter Summary ---
Author Organization [facility] [place] [address] Care Team Providers Care Clinical Associate Name Role Phone Marlon Levine MD Primary Care Provider + [phone] Reason for Visit * Reason Onset Date Comments Other 01/11/2013 Encounter Details Date Type Department Care Team (Late st Contact Info) Description 01/11/2013 Telephone Hematology Oncology at [address] [phone] Cyndy Falcon, RN Other Social History Tobacco [...] filedocumented in this encounter Care Teams Clinical Associate Relationship Specialty Start Date End Date Marlon Levine MD [address] [place] [address] PCP - General 06/20/12 documented as of this encounter
--- OUTSIDE RECORDS SUMMARY | 2024-03-07 09:23 | XMS_ITS | Encounter Summary ---
Author Organization [facility] Address [facility] [place] [address] Care Team Providers Care Commutator Inspector Name Role Phone Marlon Levine MD Primary Care Provider + [phone] Reason for Visit * Reason Comments Dermatitis Encounter Details Date Type Department Care Team (Late st Contact Info) Description 08/17/2011 3:45 PM EDT Office Visit Dermatology [facility] [address] [place] [address] Mauro Sung MD [address], [place] [address] Halo nevus (Primary Dx); Neurodermatitis Social History [...] which she has only been treating with ueks-fxk-dsubstp emollient lotions and creams. For about six [...] chronicus documented in this encounter Care Teams Commutator Inspector Relationship Specialty Start Date End Date Marlon Levine MD [address] [place] [address] PCP - General 02/16/10 06/19/12 documented as of this encounter
--- OUTSIDE RECORDS SUMMARY | 2024-03-07 09:23 | XMS_ITS | Encounter Summary ---
Author Organization [facility] Address [facility] [place] [address] Care Team Providers Care Sock Liner Name Role Phone Marlon Levine MD Primary Care Provider [phone] Reason for Visit * Reason Comments Breast Cancer Encounter Details Date Type Department Care Team (Late st Contact Info) Description 03/01/2011 1:00 PM EST Follow-Up Hematology Oncology at [address] [phone] John Beltran MD [facility] [place] [address] Breast cancer (Primary Dx) Discharge Disposition: Home [...] negative. Ten LNs were seen, all negative. ER/SD negative. HER2/cynthia negative. B. Four cycles of [...] There was no ALI or perineural invasion. ER/SD negative. HER2/cynthia negative by FISH. B. In [...] today, she feels well. 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 No areas of pain.Her [...] site documented in this encounter Care Teams Sock Liner Relationship Specialty Start Date End Date Marlon Levine MD [address] [place] [address] PCP - General 02/16/10 06/19/12 documented as of this encounter
--- OUTSIDE RECORDS SUMMARY | 2024-03-07 09:23 | XMS_ITS | Encounter Summary ---
Author Organization [facility] Address [facility] [place] [address] Care Team Providers Care Assistant Professor Name Role Phone Marlon Levine MD Primary Care Provider [phone] Encounter Details Date Type Department Care Team (Latest Contact Info) Description 05/30/2011 1:54 PM EST - 05/30/2011 7:06 PM EST Hospital Encounter Gastroenterology at [facility] [place] [address] Jag Tyler MD [facility] [place] [address] Discharge Disposition: Home Social History Tobacco Use [...] Monday, 8:00 am to 5:00pm, . The guidance secretary will need your name, medical problem, and date of the bronchoscopy. After 5pm call [phone] and ask for the pulmonary doctor ground operations crew member. * Patient Instructions* Jag Tyler MD - 05/30/2011 5:33 PM EST Please see Recommendations in the Provation procedure report which is documented in the procedural note in E-DH. * Attachments The following attachments cannot be sent through Care Everywhere. * UPPER GI ENDOSCOPY: WHAT TO EXPECT AT HOME (JAPANESE) documented in this encounter Medications at Time [...] Tyler MD - 05/30/2011 5:18 PM EST [facility] Operative Note Patient Name: Antonia Lance : [id number] MR#: [id number] Case Date: 05/30/2011 Surgeon: Surgeon(s) and Role: [...] (05/30/2011 4:42 PM EST) UPPER ENDOSCOPIC ULTRASOUND [facility] Endoscopy Patient Name: Antonia Lance ? Procedure Date: 05/30/2011 4:42 PM ? Date of : 1970 ? Age: 40 ? Order #: [id number] ? Procedure: ? Upper EUS Indications: ? Acute pancreatitis, f/up acute ? pancreatitis Providers: ? Jag Tyler MD, Martha Nava, ? RN, Ivory Eubanks, Radiology Director Referring : ?Marlon Levine MD, Roxana Ojeda [...] nausea) documented in this encounter Care Teams Assistant Professor Relationship Specialty Start Date End Date Marlon Levine MD [address] [place] [address] PCP - General 02/16/10 06/19/12 documented as of this encounter
--- OUTSIDE RECORDS SUMMARY | 2024-03-07 09:23 | XMS_ITS | Encounter Summary ---
Author Organization [facility] [place] [address] Care Team Providers Care Customs Brokerage Agent Name Role Phone Marlon Levine MD Primary Care Provider + [phone] Reason for Visit * Reason Comments Breast Mass Encounter Details Date Type Department Care Team (Late st Contact Info) Description 11/21/2012 9:15 AM EDT Follow[place] [address] Ana Lilia Soria TECHNOLOGY MANAGER [facility] [place] [address] Mass (Primary Dx) Discharge Disposition: Home Social [...] Ten lymph nodes were negative. Thetumor was ER/IL-negative and HER2-negative. Antonia went on to adjuvant [...] metaplastic spindle cell features Tumor Grade: High Ntqhxp-Yhjtf-Uhtwjjehfp Score: 8 Tubular Differentiation: 3 Mitotic Rate: [...] Nipple Involvement: NA Correlation Biopsies/Cytology Needle bx [id number], 08/07/07. 2005-left breast excision [id number]. Other findings: NA Estrogen/Progestin receptors: Performed on block A4 ER immunoreactivity: Negative (see Diagnostic del toro*) IL immunoreactivity: Negative (see Diagnostic del toro*) HER2 negative [place]ck[place] node excision was without evidence of metastatic [...] NP recommended. Preliminary report E-mailed to Tari Soira NP on 11/27/12. Margarita Joe MD IMG MAMMO ORDERABLE S documented in this encounter Visit Diagnoses Diagnosis Mass- Primary Localized superficial swelling, mass, or lump Mass Localized superficial swelling, mass, or lump documented in this encounter Care Teams Customs Brokerage Agent Relationship Specialty Start Date End Date Marlon Levine MD [address] [place] [address] PCP - General 06/20/12 documented as of this encounter
--- OUTSIDE RECORDS SUMMARY | 2024-03-07 09:23 | XMS_ITS | Encounter Summary ---
Author Organization [facility] [place] [address] Care Team Providers Care Head Grinder Name Role Phone Marlon Levine MD Primary Care Provider [phone] Reason for Referral * Consultation (Routine) - Closed Specialty Diagnoses / Procedures Referred By Mateo sims Referred To Contact Gastroenterology Diagnoses Abdominal colic Wicho Pizano MD [facility] [place] [address] [facility] [address] [place] [address] Referral ID Status Reason Start Date Expiration Date V isits Requested Visits Authorized [id number] Closed Assume Subset of Care 06/13/2013 12/10/2013 1 1 Reason for Visit * Reason Comments Abdominal Pain Encounter Details Date Type Department Care Team (Late st Contact Info) Description 06/13/2013 6:16 PM EDT - 06/13/2013 10:32 PM [place] [address] Wicho Pizano MD [facility] [place] [address] Abdominal colic Discharge Disposition: Home [...] URINE DIPSTICK Component Value Range POC Sp [place] 1.025 1.002 - 1.030 POC pH, UA [...] Sample in lab. Wicho Pizano MD 06/13/13 2159 * Constance Cruz RN - 06/13/2013 6:40 [...] MD HEMATOLOGY ORDERABLE S Performing Organization Address [facility] Co de Phone Number MENDEL AVERY * Lavender Tube HOLD (06/13/2013 8:50 PM EDT) Lavender Hold Sample in lab. MENDEL AVERY Blood specimen (specimen) 06/13/2013 8:50 PM EDT 06/13/2013 9:06 PM EDT Wicho Pizano MD HEMATOLOGY ORDERABLE S Performing Organization Address City/[facility]/ZIP Co de Phone Number MENDEL AVERY * Green Tube HOLD (06/13/2013 8:50 PM EDT) Green Hold Sample in lab. MENDEL AVERY Blood specimen (specimen) 06/13/2013 8:50 PM EDT 06/13/2013 9:05 PM EDT Wicho Pizano MD CHEMISTRY ORDERABLES Performing Organization Address [facility] de Phone Number MENDEL COLLAZOIUM * Hepatic [...] MD CHEMISTRY ORDERABLES Performing Organization Address [facility] Phone Number CERJING COLLAZOIUM * Potassium (06/13/2013 [...] Pizano MD CHEMISTRY ORDERABLES Performing Organization Address [facility] Co de Phone Number CERJING REDDYENNIUM [...] Tube HOLD (06/13/2013 7:30 PM EDT) Pathologist [facility] Gold Hold Sample in lab. MENDEL COLLAZOIUM Blood specimen (specimen) 06/13/2013 7:30 PM EDT 06/13/2013 7:40 PM EDT Wicho Pizano MD CHEMISTRY ORDERABLES Performing Organization Address [facility]/ZIP Co de Phone Number MENDEL COLLAZOIUM * Blue Tube HOLD (06/13/2013 7:30 PM EDT) Blue Hold Sample in lab. CERNER BARRYENNIUM Blood specimen (specimen) 06/13/2013 7:30 PM EDT 06/13/2013 7:40 PM EDT Wicho Pizano MD HEMATOLOGY ORDERABLE S Performing Organization Address [facility] Co de Phone Number MENDEL COLLAZOIUM * Lipase (06/13/2013 7:30 PM EDT) Lipase 26 0 - 60 unit/L CERNER BARRYENNIUM Blood specimen (specimen) 06/13/2013 7:30 PM EDT 06/13/2013 7:38 PM EDT Narrative Resulting Agency Comment Spec In Lab Wicho Pizano MD CHEMISTRY ORDERABLES Performing Organization Address [facility] Co de Phone Number MENDEL COLLAZOIUM [...] Pizano MD CHEMISTRY ORDERABLES Performing Organization Address City/[facility]/ZIP Co de Phone Number [facility] SwitchNoteIUM * Glucose, random (06/13/2013 7:30 PM EDT) Glucose 74 60 - 199 mg/dL CERNER Movolo.comENNIUM Comment:Diabetes: >=200 mg/d L plus symptoms Blood specimen (specimen) 06/13/2013 7:30 PM EDT 06/13/2013 7:38 PM EDT Narrative Resulting Agency Comment Spec In Lab Wicho Pizano MD CHEMISTRY ORDERABLES Performing Organization Address [facility] Co de Phone Number [facility] SwitchNote[facility] * (ABNORMAL) Creatinine (06/13/2013 7:30 PM EDT) Creatinine 0.67(L) 0.70 - 1.20 mg/dL [facility] SwitchNote[facility] Comment: Please note that the pediatric reference intervals supplied above were not validated at [facility]. Results from pediatric patients should be interpreted [...] Pizano MD CHEMISTRY ORDERABLES Performing Organization Address City/[facility]/ZIP Co de Phone Number CERJING REDDYENNIUM * (ABNORMAL) Electrolytes panel (06/13/2013 7:30 PM EDT) Sodium 137 135 - 145 mmol/L CERNER MILLENNIUM Potassium Not Perf 3.5 - 5.0 mmol/L CERNER MILLENNIUM Comment: Called by: [facility], Read back by: FITZ PIZANO, Date/Time:06/13/13 [...] Blood Cell 4.60 3.93 - 5.22 x10(6)/mcL [facility] Hemoglobin 14.4 11.2 - 15.7 gm/dL [facility] Hematocrit 42.9 34.0 - 45.0 % [facility] Mean Cell Volume 93.3 79.0 - 94.0 fL [facility] Mean Cell Hemoglobin 31.3 26.6 - 32.2 pg [facility] Mean Cell Hemoglobin Concentration 33.6 32.0 - 36.5 gm/dL [facility] Platelet 197 145 - 370 x10(3)/mcL [facility] RDW Standard Deviation 44.9 35.0 - 46.0 fL [facility] RDW coefficient of variation 13.1 10.9 - 14.4 % [facility] Mean Platelet Volume 10.6 9.0 - 12.0 fL [facility] Blood specimen (specimen) 06/13/2013 7:30 PM EDT 06/13/2013 7:38 PM EDT Narrative Resulting Agency Comment Spec In Lab Wicho Pizano MD HEMATOLOGY ORDERABLE S [facility] * POCT urine dipstick (06/13/2013 6:50 PM EDT) POC Sp [place] 1.025 1.002 - 1.030 POC pH, UA [...] Mora) documented in this encounter Care Teams Head Grinder Relationship Specialty Start Date End Date Marlon Levine MD [address] [place] [address] PCP - General 06/20/12 documented as of this encounter
--- OUTSIDE RECORDS SUMMARY | 2024-03-07 09:23 | XMS_ITS | Encounter Summary ---
Author Organization [facility] Address [facility] [address] Care Team Providers Care Lining Stamper Name Role Phone Marlon Levine MD Primary Care Provider [phone] Encounter Details Date Type Department Care Team (Late st Contact Info) Description 09/20/2011 2:00 PM EDT Follow-Up Hematology Oncology at [address] [phone] [facility] [place] [address] Breast cancer (Primary Dx) Discharge Disposition: Home [...] today, she feels well. 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 Her energy level is good. She does self exam of the reconstructed breasts and has not noted any areas of concern. She was recently in the ED at [facility] with abrasions on her knees and there [...] site documented in this encounter Care Teams Lining Stamper Relationship Specialty Start Date End Date Marlon Levine MD [address] [place] [address] PCP - General 02/16/10 06/19/12 documented as of this encounter
--- OUTSIDE RECORDS SUMMARY | 2024-03-07 09:23 | XMS_ITS | Encounter Summary ---
Author Organization [facility] [place] [address] Care Team Providers Care Instrumentation Supervisor Name Role Phone Marlon Levine MD Primary Care Provider + [phone] Encounter Details Date Type Department Care Team (Late st Contact Info) Description 04/30/2012 Telephone [place] [phone] Ana Lilia Soria APRN [facility] [place] [address] Social History Tobacco Use Types Packs/Day Years [...] on filedocumented in this encounter Care Teams Instrumentation Supervisor Relationship Specialty Start Date End Date Marlon Levine MD [address] [place] [address] PCP - General 02/16/10 06/19/12 documented as of this encounter
--- OUTSIDE RECORDS SUMMARY | 2024-03-07 09:23 | XMS_ITS | Encounter Summary ---
Author Organization [facility] [place] [address] Care Team Providers Care Brush Cutter Name Role Phone Marlon Levine MD Primary Care Provider + [phone] Reason for Visit * Reason Onset Date Comments Follow-up 11/29/2012 Encounter Details Date Type Department Care Team (Late st Contact Info) Description 11/29/2012 Telephone [place] [phone] Ana Lilia Soria APRN [facility] [place] [address] Follow-up Social History Tobacco Use Types Packs/Day [...] on filedocumented in this encounter Care Teams Brush Cutter Relationship Specialty Start Date End Date Marlon Levine MD [address] [place] [address] PCP - General 06/20/12 documented as of this encounter
--- OUTSIDE RECORDS SUMMARY | 2024-03-07 09:23 | XMS_ITS | Encounter Summary ---
Author Organization [facility] Address [facility] [place] [address] Care Team Providers Care Radar Engineer Name Role Phone Marlon Levine MD Primary Care Provider [phone] Encounter Details Date Type Department Care Team (Late st Contact Info) Description 06/08/2010 2:30 PM EDT Follow-Up Hematology Oncology at [address] [phone] John Beltran MD [facility] [place] [address] Discharge Disposition: Home Social History Tobacco Use [...] on filedocumented in this encounter Care Teams Radar Engineer Relationship Specialty Start Date End Date Marlon Levine MD [address] [place] [address] PCP - General 02/16/10 06/19/12 documented as of this encounter
--- OUTSIDE RECORDS SUMMARY | 2024-03-07 09:23 | XMS_ITS | Encounter Summary ---
Author [facility] Address [facility] [place] [address] Care Team Providers Care Geophysical E Logger Name Role Phone Marlon Levine MD Primary Care Provider + [phone] Encounter Details Date Type Department Care Team (Late st Contact Info) Description 04/24/2011 Orders [place] [address] Jc Carpenter MD [facility] [place] [address] Social History Tobacco Use Types Packs/Day Years [...] Carpenter MD G FILM LIBRARY ORD ERABLES [facility] [address] [facility] [place] [address] documented in this encounter Visit Diagnoses Not on filedocumented in this encounter Care Teams Geophysical E Logger Relationship Specialty Start Date End Date Marlon Levine MD [address] [place] [address] PCP - General 02/16/10 06/19/12 documented as of this encounter
--- OUTSIDE RECORDS SUMMARY | 2024-03-07 09:23 | XMS_ITS | Encounter Summary ---
Author Organization [facility] Address [facility] [place] [address] Care Team Providers Care Land Acquisition Manager Name Role Phone Marlon Levine MD Primary Care Provider + [phone] Encounter Details Date Type Department Care Team (Late st Contact Info) Description 04/21/2011 Orders [place] [address] Jc Carpenter MD [facility] GENERAL [place] [address] Social History Tobacco Use Types Packs/Day Years [...] MD IMG FILM LIBRARY ORD ERABLES [facility] [address] [place] [address] documented in this encounter Visit Diagnoses Not on filedocumented in this encounter Care Teams Land Acquisition Manager Relationship Specialty Start Date End Date Marlon Levine MD [address] [place] [address] PCP - General 02/16/10 06/19/12 documented as of this encounter
--- OUTSIDE RECORDS SUMMARY | 2024-03-07 09:23 | XMS_ITS | Encounter Summary ---
Author Organization [facility] [place] [address] Care Team Providers Care Brake Rider Name Role Phone Marlon Levine MD Primary Care Provider [phone] Encounter Details Date Type Department Care Team (Late st Contact Info) Description 08/06/2012 [place] [address] Erick Marx MD [facility] [place] [address] Social History Tobacco Use Types Packs/Day Years [...] on filedocumented in this encounter Care Teams Brake Rider Relationship Specialty Start Date End Date Marlon Levine MD [address] [place] [address] PCP - General 06/20/12 documented as of this encounter
--- OUTSIDE RECORDS SUMMARY | 2024-03-07 09:23 | XMS_ITS | Encounter Summary ---
Author Organization [facility] [place] [address] Care Team Providers Care Blind Aide Name Role Phone Marlon Levine MD Primary Care Provider + [phone] Encounter Details Date Type Department Care Team (Late st Contact Info) Description 04/21/2011 Orders [place] [address] Jc Carpenter MD [facility] GENERAL [place] [address] Social History Tobacco Use Types Packs/Day Years [...] Carpenter MD G FILM LIBRARY ORD ERABLES [facility] [address] [place] [address] documented in this encounter Visit Diagnoses Not on filedocumented in this encounter Care Teams Blind Aide Relationship Specialty Start Date End Date Marlon Levine MD [address] [place] [address] PCP - General 02/16/10 06/19/12 documented as of this encounter
--- OUTSIDE RECORDS SUMMARY | 2024-03-07 09:23 | XMS_ITS | Encounter Summary ---
Author Organization [facility] [place] [address] Care Team Providers Care Acid Operator Name Role Phone Marlon Levine MD Primary Care Provider + [phone] Reason for Visit * Reason Comments Follow-up Encounter Details Date Type Department Care Team (Late st Contact Info) Description 04/15/2011 11:00 AM EST Follow-[place] [address] Ana Lilia Soria SHOE STITCHER ODD [facility] [place] [address] Breast cancer (Primary Dx) Discharge Disposition: Home [...] Antonia is a 40-year-old pt of Dr oJe who presents today for annual surgical follow up. She was initially diagnosed with a left breast cancer in 2004. She was treated with a lumpectomy and axillary lymph node dissection. 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 Resection margins were negative. Ten lymph nodes were negative. Thetumor was ER/LA-negative and HER2-negative. Antonia went on to adjuvant chemotherapy under the guidance of Dr. John Beltarn. She was treated with four cycles of [...] metaplastic spindle cell features Tumor Grade: High Wnqtcn-Zqhol-Rsetftnvfj Score: 8 Tubular Differentiation: 3 Mitotic Rate: [...] Nipple Involvement: NA Correlation Biopsies/Cytology Needle bx [id number], 08/07/07. 2005-left breast excision [id number]. Other findings: NA Estrogen/Progestin receptors: Performed on block A4 ER immunoreactivity: Negative (see Diagnostic del toro*) LA immunoreactivity: Negative (see Diagnostic del toro*) HER2 negative [place] node excision was without evidence of metastatic [...] site documented in this encounter Care Teams Acid Operator Relationship Specialty Start Date End Date Marlon Levine MD [address] [place] [address] PCP - General 02/16/10 06/19/12 documented as of this encounter
--- OUTSIDE RECORDS SUMMARY | 2024-03-07 09:23 | XMS_ITS | Encounter Summary ---
Author Organization [facility] Address [facility] [place] [address] Care Team Providers Care Power Equipment Mechanics Instructor Name Role Phone Marlon Levine MD Primary Care Provider [phone] Encounter Details Date Type Department Care Team (Latest Contact Info) Description 11/23/2012 3:00 PM EDT - 11/23/2012 11:59 PM EDT Hospital [place] [phone] CLINIC, Margarita Vaughn MD [facility] [place] [address] [place] Discharge Disposition: Home Social History Tobacco [...] lump documented in this encounter Care Teams Power Equipment Mechanics Instructor Relationship Specialty Start Date End Date Marlon Levine MD [address] [place] [address] PCP - General 06/20/12 documented as of this encounter
--- OUTSIDE RECORDS SUMMARY | 2024-03-07 09:23 | XMS_ITS | Encounter Summary ---
Author Organization [facility] Address [facility] [place] [address] Care Team Providers Care Bobbin Stripper Name Role Phone Marlon Levine MD Primary Care Provider [phone] Reason for Visit * Reason Comments Follow-up Encounter Details Date Type Department Care Team (Late st Contact Info) Description 10/19/2012 1:00 PM EDT Follow-Up Hematology Oncology at [address] [phone] John Beltran MD [facility] [place] [address] Breast cancer (Primary Dx) Discharge Disposition: Home [...] a trial of CPAP. 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 No areas of pain. [...] site documented in this encounter Care Teams Bobbin Stripper Relationship Specialty Start Date End Date Marlon Levine MD [address] [place] [address] PCP - General 06/20/12 documented as of this encounter
--- OUTSIDE RECORDS SUMMARY | 2024-03-07 09:23 | XMS_ITS | Encounter Summary ---
Author Organization [facility] [place] [address] Care Team Providers Care Product Controller Name Role Phone Marlon Levine MD Primary Care Provider + [phone] Reason for Visit * Reason Onset Date Comments Follow-up 11/29/2012 Encounter Details Date Type Department Care Team (Late st Contact Info) Description 11/29/2012 Telephone [place] [phone] Ana Lilia Soria APRN [facility] [place] [place] [address] Follow-up Social History Tobacco Use Types Packs/Day [...] [facility] an [facility]. I have left her my number asking her to call me. documented in this encounter Plan of Treatment Not on file documented as of this encounter Visit Diagnoses Not on filedocumented in this encounter Care Teams Product Controller Relationship Specialty Start Date End Date Abner, Marlon H, MD [address] [place] [address] PCP - General 06/20/12 documented as of this encounter
--- OUTSIDE RECORDS SUMMARY | 2024-03-07 09:23 | XMS_ITS | Encounter Summary ---
Author Organization [facility] Address [facility] [place] [address] Care Team Providers Care Redeye Gunner Name Role Phone Marlon Levine MD Primary Care Provider + [phone] Reason for Visit * Reason Comments Strabismus Double vision,blurry vision,OD Encounter Details Date Type Department Care Team (Late st Contact Info) Description 11/01/2012 2:00 PM EDT Office [place] [address] Nikki Orourke MD [facility] [address] Diplopia (Primary Dx); Esotropia; Accommodative spasm; Anisometropia; [...] unspecified documented in this encounter Care Teams Redeye Gunner Relationship Specialty Start Date End Date Marlon Levine MD [address] [place] [address] PCP - General 06/20/12 documented as of this encounter
--- OUTSIDE RECORDS SUMMARY | 2024-03-07 09:23 | XMS_ITS | Encounter Summary ---
Author Organization Formerly [facility] [place] [address] Care Team Providers Care Lamp Cleaner Name Role Phone Marlon Levine MD Primary Care Provider + [phone] Reason for Visit * Reason Comments GI Problem Encounter Details Date Type Department Care Team (Late st Contact Info) Description 05/18/2011 10:00 AM EST Office [place] [address] Jonathan Roman MD [facility] [place] [address] Pancreatitis (Primary Dx) Discharge Disposition: Home Social [...] follow up in [address] Roamn documented in this encounter Progress Notes * [...] nausea or vomiting. She was evaluated at [facility] for these symptoms with labs revealing lipase 53,322, Albumin 4.1, Tb 1.9, Alk Phos 154, AST 318, ALT 414. A CT demonstrated aprominent pancreatic head with peripancreatic stranding consistent with pancreatitis with an otherwise normal biliary tree. Ms. Lance was admitted to [facility] for approximately one week and eventually transferred to [facility] for failure to improve. While at [facility] she underwent RUQ US which demonstrated no evidence of choledocholithiasis and otherwise normal biliary tree. Lab testing was notable for elevated LFTs as above, normal calcium, normal triglycerides. History is additionally notable for the absence of alcohol use, absence of any trauma, recent travel, recent new meds or herbals, or any prior personal history of pancreatitis. Upon transfer to [facility], a CT PE protocol as obtained given tachypnea, hypoxia, and tachycardia which demonstrated no evidence of PE, did demonstrate bilateral pleural effusions related to recent pancreatitis. She eventually improved with ongoing supportive care including IV fluids, analgesia. Repeat LFTs at [facility] were notably normal Since transfer Ms. Lance [...] with lumpectomy with chemo/XRT Faustin Gilberto in [facility] - experienced recurrence in approximately 2008 [...] Social History: Ms. Lance currently lives in [place], [place] with her and 17 year old [...] 12:05 PM EST) Triglyceride 72 <=149 mg/dL [facility] Comment: Reference Range: Normal triglycerides: ??<150 mg/dL Borderline high: ??150-199 mg/dL High: ??200-499 mg/dL Very high: ??>al=505 mg/dL JADON 2001; [id number] Blood specimen (specimen) 05/18/2011 12:05 PM EST 05/18/2011 12:12 PM EST Narrative Resulting Agency Comment Spec In Lab Zach Paulson MD CHEMISTRY ORDERABLES Performing Organization Address [facility] de Phone Number [facility] * IgG 4 (05/18/2011 12:05 PM EST) IgG 4 14.8 4.0 - 86.0 mg/dL [facility] Comment: Test Performed by [facility], [address] [place], [place] Deandre Dominguez M.D., Ph.D., Director of Laboratories , [place] [id number] Blood specimen (specimen) 05/18/2011 12:05 PM EST 05/18/2011 2:37 PM EST Narrative Resulting Agency Comment Spec In Lab Zach Paulson MD IMMUNOLOGY ORDERABLE S Performing Organization Address City/[facility] Co de Phone Number [facility] * IgA (05/18/2011 12:05 PM EST) IgA 215 70 - 400 mg/dL [facility] Blood specimen (specimen) 05/18/2011 12:05 PM EST 05/18/2011 12:12 PM EST Narrative Resulting Agency Comment Spec In Lab Zach Paulson MD CHEMISTRY ORDERABLES Performing Organization Address [facility] Co de Phone Number [facility] * Tissue transglutaminase, IgA (05/18/2011 12:05 PM EST) TTG IgA Ab <4.0 <=3.9 u/ml [facility] Comment: Result Interpretation: Negative: ?<4 U/mL Weak Positive: ??4-10 U/mL Positive: ?>10 U/mL Blood specimen (specimen) 05/18/2011 12:05 PM EST 05/19/2011 8:11 AM EST Narrative Resulting Agency Comment Spec In Lab Zach Paulson MD IMMUNOLOGY ORDERABLE S Performing Organization Address [facility] de Phone Number MENDEL AVERY documented in this encounter Visit Diagnoses Diagnosis Pancreatitis- Primary Acute pancreatitis Pancreatitis Acute pancreatitis documented in this encounter Care Teams Lamp Cleaner Relationship Specialty Start Date End Date Marlon Levine MD [address] [place] [address] PCP - General 02/16/10 06/19/12 documented as of this encounter
--- OUTSIDE RECORDS SUMMARY | 2024-03-07 09:23 | XMS_ITS | Encounter Summary ---
Author Organization [facility] Address [facility] [place] [address] Care Team Providers Care Nursery Attendant Name Role Phone Marlon Levine MD Primary Care Provider [phone] Reason for Visit * Reason Onset Date Comments Other 10/07/2010 appt with nutrit ionist Encounter Details Date Type Department Care Team (Late st Contact Info) Description 10/07/2010 Telephone Hematology Oncology at [address] [address] John Beltran MD [facility] [place] [address] Other (appt with buyer liaison) Social History Tobacco Use Types Packs/Day Years [...] does not want and appt with our buyer liaison. She decided to keep a diary on her own and her and can see how she is doing at her 4 m f/u. documented in this encounter Plan of Treatment Not on file documented as of this encounter Visit Diagnoses Not on filedocumented in this encounter Care Teams Nursery Attendant Relationship Specialty Start Date End Date Marlon Levine MD [address] [place] [address] PCP - General 02/16/10 06/19/12 documented as of this encounter
--- OUTSIDE RECORDS SUMMARY | 2024-03-07 09:23 | XMS_ITS | Encounter Summary ---
Author Organization Formerly [facility] [place] [address] Care Team Providers Care Carpenter Foreman Name Role Phone Marlon Levine MD Primary Care Provider [phone] Reason for Referral * Consultation (Routine) - Closed Specialty Diagnoses / Procedures Referred By Mateo sims Referred To Contact Hematology and Oncology Diagnoses Breast cancer, female, unspecified laterality John Beltran MD [facility] [address] [place] [address] Referral ID Status Reason Start Date Expiration Date V isits Requested Visits Authorized [id number] Closed Consult, Test & Treat 04/19/2013 10/16/2013 1 1 Encounter Details Date Type Department Care Team (Late st Contact Info) Description 04/19/2013 3:30 PM EST Follow-Up Hematology Oncology at [address] [phone] John Beltran MD [facility] [place] [address] Breast cancer, female, unspecified laterality (Primary Dx) [...] negative. Ten LNs were seen, all negative. ER/[place] negative. HER2/cynthia negative. B. Four cycles of [...] There was no ALI or perineural invasion. ER/[place] negative. HER2/cynthia negative by FISH. B. In [...] she has a sister who lives in [place] and unfortunately has stage IV breast cancer. [...] Primary documented in this encounter Care Teams Carpenter Foreman Relationship Specialty Start Date End Date Marlon Levine MD [address] [place] [address] PCP - General 06/20/12 documented as of this encounter
--- OUTSIDE RECORDS SUMMARY | 2024-03-07 09:23 | XMS_ITS | Encounter Summary ---
Author Organization [facility] [place] [address] Care Team Providers Care Range Conservationist Name Role Phone Marlon Levine MD Primary Care Provider [phone] Encounter Details Date Type Department Care Team (Late st Contact Info) Description 04/21/2010 9:30 AM EST [place] [address] Chavez Hinkle MD [facility] [place] [address] Discharge Disposition: Home Social History Tobacco Use [...] on filedocumented in this encounter Care Teams Range Conservationist Relationship Specialty Start Date End Date Marlon Levine MD [address] [place] [address] PCP - General 02/16/10 06/19/12 documented as of this encounter
--- OUTSIDE RECORDS SUMMARY | 2024-03-07 09:23 | XMS_ITS | Encounter Summary ---
Author Organization [facility] [place] [address] Care Team Providers Care Clinical Dietetic Technician Name Role Phone Marlon Levine MD Primary Care Provider + [phone] Encounter Details Date Type Department Care Team (Late st Contact Info) Description 10/30/2012 2:15 PM EDT [place] [address] Erick Marx MD [facility] [place] [address] Migraine (Primary Dx); Visual complaint Discharge Disposition: [...] really noticed it until she saw an library information technician locally for her headaches and then was [...] goes to college. 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 She does not smoke, does not drink [...] eye documented in this encounter Care Teams Clinical Dietetic Technician Relationship Specialty Start Date End Date Marlon Levine MD [address] [place] [address] PCP - General 06/20/12 documented as of this encounter
--- OUTSIDE RECORDS SUMMARY | 2024-03-07 09:23 | XMS_ITS | Encounter Summary ---
Author Organization Count Includes [facility] Address [facility] [place] [address] Care Team Providers Care Cement Worker Name Role Phone Marlon Levine MD Primary Care Provider + [phone] Encounter Details Date Type Department Care Team (Late st Contact Info) Description 04/21/2011 Orders [place] [address] Jc Carpenter MD [facility] [place] [address] Social History Tobacco Use Types Packs/Day Years [...] Carpenter MD G FILM LIBRARY ORD ERABLES [facility] [address] [place] [address] documented in this encounter Visit Diagnoses Not on filedocumented in this encounter Care Teams Cement Worker Relationship Specialty Start Date End Date Marlon Levine MD [address] [place] [address] PCP - General 02/16/10 06/19/12 documented as of this encounter
--- OUTSIDE RECORDS SUMMARY | 2024-03-07 09:23 | XMS_ITS | Encounter Summary ---
Author Organization [facility] [place] [address] Care Team Providers Care Spot Checker Name Role Phone Marlon Levine MD Primary Care Provider + [phone] Encounter Details Date Type Department Care Team (Late st Contact Info) Description 02/14/2013 [place] [address] Maria C Gomez MD [facility] [place] [address] Social History Tobacco Use Types Packs/Day Years [...] on filedocumented in this encounter Care Teams Spot Checker Relationship Specialty Start Date End Date Marlon Levine MD [address] [place] [address] PCP - General 06/20/12 documented as of this encounter
--- OUTSIDE RECORDS SUMMARY | 2024-03-07 09:23 | XMS_ITS | Encounter Summary ---
Author Organization [facility] Address [facility] [place] [address] Care Team Providers Care Facilities And Grounds Director Name Role Phone Marlon Levine MD Primary Care Provider + [phone] Reason for Visit * Reason Comments Strabismus 6--wks f/u for ESOTR OPIA-OD Encounter Details Date Type Department Care Team (Late st Contact Info) Description 12/07/2012 2:15 PM EDT [place] [address] Nikki Orourke MD [facility] [place] [address] Esotropia (Primary Dx); Anisometropia Discharge Disposition: Home [...] Mild amblyopia OD. Plan: Cont current Rx time study statistician. F/u with [facility] as scheduled. If no concerns for neuro-op cause, willplan to see her back in 6 months. NIKKI OROURKE MD documented in this encounter Plan of Treatment Not on file documented as of this encounter Visit Diagnoses Diagnosis Esotropia- Primary Esotropia, unspecified Anisometropia documented in this encounter Care Teams Facilities And Grounds Director Relationship Specialty Start Date End Date Marlon Levine MD [address] [place] [address] PCP - General 06/20/12 documented as of this encounter
--- OUTSIDE RECORDS SUMMARY | 2024-03-07 09:23 | XMS_ITS | Encounter Summary ---
Author Organization [facility] [place] [address] Care Team Providers Care Career Manager Name Role Phone Marlon Levine MD Primary Care Provider + [phone] Encounter Details Date Type Department Care Team (Latest Contact Info) Description 05/30/2011 12:23 PM EST - 05/30/2011 11:59 PM [facility] [place] [id number] CLINIC, Zach Lopez MD [facility] [place] [address] Pancreatitis Discharge Disposition: Home Social History Tobacco [...] reviewed by the attending Zach Paulson MD [facility] MRI ORDERABLES documented in this encounter Visit Diagnoses Diagnosis Pancreatitis Acute pancreatitis documented in this encounter Care Teams Career Manager Relationship Specialty Start Date End Date Marlon Levine MD [address] [place] [address] PCP - General 02/16/10 06/19/12 documented as of this encounter
--- OUTSIDE RECORDS SUMMARY | 2024-03-07 09:23 | XMS_ITS | Encounter Summary ---
Author Organization [facility] Address [facility] [place] [address] Care Team Providers Care Microbiological Lab Technician Name Role Phone Marlon Levine MD Primary Care Provider + [phone] Reason for Visit * Reason Comments Diplopia Encounter Details Date Type Department Care Team (Late st Contact Info) Description 02/26/2013 1:00 PM EST Office [place] [address] Maria C Gomez MD [facility] DR [place] [address] Esotropia (Primary Dx) Discharge Disposition: Home Social [...] unspecified documented in this encounter Care Teams Microbiological Lab Technician Relationship Specialty Start Date End Date Marlon Levine MD [address] [place] [address] PCP - General 06/20/12 documented as of this encounter
--- OUTSIDE RECORDS SUMMARY | 2024-03-07 09:23 | XMS_ITS | Encounter Summary ---
Author Organization [facility] Address [facility] [place] [address] Care Team Providers Care Integration Software Engineer Name Role Phone Marlon Levine MD Primary Care Provider [phone] Encounter Details Date Type Department Care Team (Latest Contact Info) Description 04/27/2011 3:49 PM EST - 04/30/2011 3:09 PM EST Hospital Encounter [address] [place] [phone] Deandre Tuttle MD [facility] [place] [address] Juvenal Lea MD [address] [place] [id number] Breast cancer Discharge Disposition: Home Social History [...] call Dr. Levine Your inpatient doctors at [facility] were: Marshal Shen, Jayden, and Julius Medications: - If you still have RESIDUAL pains you can try ibuprofen or tylenol [id number]. Any new pain or worsening pain should [...] spent <30 minutes (Day of Discharge Code 73529) involved in the final examination of the [...] Medicine Admitted 04/27/2011 Progress Note Team Pager #[phone] ID: Antonia Lance is a 40 y.o. female, hx breast CA, now with recent resolved pancreatitis and large bilateral pleural effusions Last 24 ?? Attempt thora, unsuccessful ?? No PTX on f/u CXR ?? O2 requirement unchanged ?? Scheduled tylenol and ibuprofen Subjective ?? Feeling much better ?? Appetite returning, drinking clears w/o c/o ?? Not needing social insurance specialist ?? Still with pain around site of [...] PHOS -- -- 2.6 Medications ??? DISCONTD: MACHINE CELL TUBER [place] ??? magnesium sulfate 2 g [...] DISCONTD: HYDROmorphone ??? DISCONTD: naloxone ??? DISCONTD: MACHINE CELL TUBER [place] Microbiology ?? none Imaging / Procedures CXR - no PTX. Effusions still prominent Assessment & Plan 40 y/o female, previously healthy, with recent admission for pancreatitis, and unresolved pain. Overall much better. Will d/c magallon, attempt advance diet. D/c MACHINE CELL TUBER. Hope can get rid of any need [...] Medicine Admitted 04/27/2011 Progress Note Team Pager #[phone] ID: Antonia Lance is a 40 y.o. female, hx breast CA, now with recent resolved pancreatitis and large bilateral pleural effusions Last 24 ?? Admit medicine ?? CT chest showed no PE, but large bilat effusions seen ?? O2 requirement unchanged ?? 0.9 mg dilaudid MACHINE CELL TUBER used overnight Subjective ?? Feeling less groggy [...] (04/28/11 0400) ??? HYDROmorphone ??? naloxone ??? MACHINE CELL TUBER [place] Microbiology ?? none Imaging / Procedures CT [...] 40 y/o male presents as transfer from [facility] for unresolving abd pain after pancreatitis. Pt originally presented 04/21, having had abd pain for 2 wks. Originally thought in nature, with neg pelvic w/u. Upon admission, found lipase 53k, and treated for pancreatitis. Pain control and IVFand antiemetics given. Pt very sensitive to narcotics, requiring reversal with narcan after apneic.Odebolt improved in coming days, with resolving lipase. [...] chemoRT x2 - all nodes neg - ER/UT neg, Her2/cynthia neg - adjuvant CMF x6 [...] newbecause previously high 90s on RA at [facility], and tachycardia, though no evidence of DVT [...] Patient Positioning: Sitting upright. Hand Hygiene: The emergency medical service manager did perform proper hand hygiene prior to [...] 40 y/o male presents as transfer from [facility] for unresolving abd pain after pancreatitis. Pt originally presented 04/21, having had abd pain for 2 wks. Originally thought in nature, with neg pelvic w/u. Upon admission, found lipase 53k, and treated for pancreatitis. Pain control and IVFand antiemetics given. Pt very sensitive to narcotics, requiring reversal with narcan after apneic.Odebolt improved in coming days, with resolving lipase. [...] Course: Pancreatitis -- The patient's data from [facility] were reviewed. Lipase was rechecked and was normal. Itseemed the patient's pancreatitis had resolved after appropriate management at [facility]. The etiology remains uncertain, as there was [...] fluid resuscitation and inflammatory state (all at [facility]). Bedside thoracentesis was attempted but was unsuccessful [...] call Dr. Levine Your inpatient doctors at [facility] were: Marshal Shen, Jayden, and Julius Medications: - If you still have RESIDUAL pains you can try ibuprofen or tylenol [id number]. Any new pain or worsening pain should prompt re-evaluation by a doctor. General Instructions None Provider Contact Information: MARLON LEVINE MD [address] [facility] [address] (phone) [phone] (fax) Signed: REYNALDO APPLE MD Discharged: 04/30/2011 [...] is nearly WNL(just slightly elevated). Spoke with CALL CENTER ANALYST who will weigh pt today. Because pt [...] day. She has been using her Dilaudid MACHINE CELL TUBER. However, the MACHINE CELL TUBER's power turned off and the information was [...] of sharp pain. Pt has a Dilaudid MACHINE CELL TUBER and has only used 0.5 mg so [...] Routine 04/28/2011 6:05 AM EST CARDIAC ENZYMES ([facility]) Routine 04/28/2011 6:05 AM EST CBC (WITH DIFF) Routine 04/28/2011 6:05 AM EST BASIC METABOLIC PANEL Routine 04/28/2011 6:[address] CHEST PULMONARY EMBOLISM W CONTRAST STAT 04/27/2011 9:54 PM EST CARDIAC ENZYMES ([facility]) Routine 04/27/2011 9:03 PM EST LIPASE Routine [...] AM EST Juvenal Lea MD CHEMISTRY ORDERABLES [facility] * (ABNORMAL) CBC (with Diff) (04/29/2011 [...] Lactate Dehydrogenase (04/28/2011 2:42 PM EST) Pathologist [facility] Lactate Dehydrogenase 142 110 - 220 unit/L [facility] Blood specimen (specimen) 04/28/2011 2:42 PM EST 04/28/2011 2:48 PM EST Juvenal Lea MD CHEMISTRY ORDERABLES Performing Organization Address [facility] Phone Number [facility] * (ABNORMAL) Protein, total (04/28/2011 2:42 PM EST) Pathologist [facility] Protein, Total 5.9(L) 6.4 - 8.3 gm/dL [facility] Blood specimen (specimen) 04/28/2011 2:42 PM EST 04/28/2011 2:48 PM EST Juvenal Lea MD CHEMISTRY ORDERABLES Performing Organization Address [facility] de Phone Number [facility] * Cytopathology Non-Gynecological (04/28/2011 12:35 PM EST) AP Specimen 04/28/2011 12:3 5 PM EST 04/28/2011 12:35 PM EST Narrative [facility] - 04/28/2011 12:35 PM EST Specimen requisition ordered. ??Separate Pathology report to follow Juvenal Lea MD PATHOLOGY/CYTOLOGY O RDERABLES Performing Organization Address [facility] Phone Number [facility] * CARDIAC ENZYMES (04/28/2011 6:05 AM EST) Pathologist [facility] Troponin-T <0.03 <=0.03 ng/mL [facility] Comment: 0.03 ng/mL: Represents the 99th percentile upper reference limit for normals. >0.03 ng/mL: Elevated cardiac troponin T level indicative of myocardial damage. Diagnosis of acute, evolving or recent LA requires a typical rise and gradual fall [...] consensus document of the Joint Society of Cardiology/[place] College of Cardiology Committee for the redefinition of myocardial infarction. Journal of the [place] College of Cardiology 2000; 36: 959-969] Creatine [...] 9:03 PM EST) Troponin-T <0.03 <=0.03 ng/mL [employer] [facility] Comment: 0.03 ng/mL: Represents the 99th percentile upper reference limit for normals. >0.03 ng/mL: Elevated cardiac troponin T level indicative of myocardial damage. Diagnosis of acute, evolving or recent LA requires a typical rise and gradual fall [...] consensus document of the Joint Society of Cardiology/[place] College of Cardiology Committee for the redefinition of myocardial infarction. Journal of the [place] College of Cardiology 2000; 36: 959-969] Creatine Kinase 34 0 - 160 unit/L [employer] Blood specimen (specimen) 04/27/2011 9:03 PM EST 04/27/2011 9:20 PM EST Juvenal Lea MD CHEMISTRY ORDERABLES [facility] * Lipase (04/27/2011 9:03 PM EST) Lipase 19 0 - 60 unit/L [facility] Blood specimen (specimen) 04/27/2011 9:03 PM EST 04/27/2011 9:20 PM EST Juvenal Lea MD CHEMISTRY ORDERABLES Performing Organization Address City/[facility]/ZIP Co de Phone Number [facility] [...] Absolute 0.06(H) 0.00 - 0.05 x10(3)/mc L [facility] Blood specimen (specimen) 04/27/2011 8:50 PM EST 04/27/2011 9:20 PM EST Juvenal Lea MD HEMATOLOGY ORDERABLE S Performing Organization Address [facility] Phone Number [facility] * (ABNORMAL) D-Dimer, Quantitative (04/27/2011 8:50 PM EST) D-Dimer 3685(H) 0 - 500 FEU ng/ml [facility] Comment: The D-Dimer assay is used to [...] MD HEMATOLOGY ORDERABLE S Performing Organization Address [facility] Number [facility] * APTT (04/27/2011 8:50 PM EST) Partial Thromboplastin Time 33 25 - 35 sec [facility] Comment: Recommended therapeutic PTT range for full dose unfractionated heparin is 80-114 seconds. Blood specimen (specimen) 04/27/2011 8:50 PM EST 04/27/2011 9:20 PM EST Juvenal Lea MD HEMATOLOGY ORDERABLE S Performing Organization Address [facility] Phone Number [facility] * (ABNORMAL) Prothrombin Time (04/27/2011 8:50 PM EST) Prothrombin Time 15.5(H) 12.3 - 14.7 sec [facility] Comment: [facility] Transfusion Committee Guidelines: INR less than 2.0, [...] MD HEMATOLOGY ORDERABLE S Performing Organization Address [facility] de Phone Number [facility] * (ABNORMAL) [...] 8:50 PM EST 04/27/2011 9:20 PM EST Juvenla Lea MD CHEMISTRY ORDERABLES Performing Organization Address [facility] Phone Number [facility] * Phosphorus (04/27/2011 8:50 PM EST) Phosphorus 2.6 2.5 - 4.5 mg/dL [facility] Blood specimen (specimen) 04/27/2011 8:50 PM EST 04/27/2011 9:20 PM EST Juvenal Lea MD CHEMISTRY ORDERABLES Performing Organization Address [facility] de Phone Number [facility] * (ABNORMAL) [...] scoliotic curvature to spine rightward. There are oehsmfeh-xi-bbwpn bilateral effusions, left greater than right. There [...] Mild scoliotic curvature to spine rightward. Thereare oqytbpmm-rw-vtuqn bilateral effusions, left greater than right. There [...] Comment: Total Hemoglobin (in gm/dL) ?Based on [facility] Hematology ranges: ?Age ?Reference Range Less than [...] (Bezet) 419 ms MUSE SYSTEM Calculated P Ridge 60 degrees MUSE SYSTEM Calculated R Ridge 67 degrees MUSE SYSTEM Calculated T Ridge 52 degrees MUSE SYSTEM INTERPRETATION Sinus rhythm with short UT T wave abnormality, consider anterior ischemia Abnormal [...] Urine Dipstick Clear Clear [facility] MILLENNIUM Specific [place] Urine Automated 1.013 1.002 - 1.030 [facility] MILLENNI[facility] Color, Urine Dipstick Yellow Yellow [facility] RBC, Urine Not Present 0 - 4 [facility] WBC, Urine 1 0 - 5 /HPF [facility] Urine specimen (specimen) 04/27/2011 6:11 PM EST 04/27/2011 6:26 PM EST Juvenal Lea MD URINE ORDERABLES Performing Organization Address City/[facility]/ZIP Co de Phone Number [facility] * FILM LIBRARY- STORAGE ONLY CT ABDOMEN & PELVIS (04/24/2011 7:53 PM EST) 04/24/2011 7:53 PM EST Narrative RAD - 08/20/2013 1:45 PM EDT This is a non-reportable exam. Procedure Note Fuentes Puente - 08/20/2013 This is a non-reportable exam. Constance Rahman MD IM FILM LIBRARY ORD ERABLES [facility] [address] [place] [address] documented in this encounter Visit Diagnoses Diagnosis [...] EST 40 mg HYDROmorphone (DILAUDID) 1 mg/mL MACHINE CELL TUBER 30 mL Intravenous, MACHINE CELL TUBER ONLY, Starting on Mon04/27/11 at 1830, Until [...] 100 mg, Subcutaneous, ONCE, 1 dose, On [facility] 04/28/11 at 1315, Routine Given 04/28/2011 1:15 [...] at 1315, Routine 1315 (Given - Provider: Dsaia Dillard RN) potassium chloride 20 mEq in [...] RN) documented in this encounter Care Teams Integration Software Engineer Relationship Specialty Start Date End Date Marlon Levine MD [address] [place] [address] PCP - General 02/16/10 06/19/12 documented as of this encounter
--- OUTSIDE RECORDS SUMMARY | 2024-03-07 09:23 | XMS_ITS | Encounter Summary ---
Author Organization [facility] [place] [address] Care Team Providers Care Barback Name Role Phone Marlon Levine MD Primary Care Provider + [phone] Reason for Visit * Reason Onset Date Comments Other 05/23/2011 new symptoms Encounter Details Date Type Department Care Team (Late st Contact Info) Description 05/23/2011 Telephone [place] [phone] Natalie Tompkins RN Other (new symptoms) Social [...] on filedocumented in this encounter Care Teams Barback Relationship Specialty Start Date End Date Marlon Levine MD [address] [place] [address] PCP - General 02/16/10 06/19/12 documented as of this encounter
--- OUTSIDE RECORDS SUMMARY | 2024-03-07 09:23 | XMS_ITS | Encounter Summary ---
Author Organization [facility] [place] [address] Care Team Providers Care Sales Representative Rural Power Name Role Phone Marlon Levine MD Primary Care Provider [phone] Encounter Details Date Type Department Care Team (Late st Contact Info) Description 04/27/2011 External Results XRay at [address] [place] [address] Reynaldo Bolton MD EMERGENCY DEPT PO [facility] [address] [place] [address] Social History Tobacco Use Types Packs/Day Years [...] in this encounter Care Teams Sales Representative Rural Power Relationship Specialty Start Date End Date Marlon Levine MD [address] [place] [address] PCP - General 02/16/10 06/19/12 documented as of this encounter
--- OUTSIDE RECORDS SUMMARY | 2024-03-07 09:23 | XMS_ITS | Encounter Summary ---
Author Organization [facility] [place] [address] Care Team Providers Care Batch Plant Supervisor Name Role Phone Marlon Levine MD Primary Care Provider + [phone] Encounter Details Date Type Department Care Team (Late st Contact Info) Description 04/30/2012 Telephone [place] [phone] Ana Lilia Soria APRN [facility] [place] [address] Social History Tobacco Use Types Packs/Day Years [...] on filedocumented in this encounter Care Teams Batch Plant Supervisor Relationship Specialty Start Date End Date Marlon Levine MD [address] [place] [address] PCP - General 02/16/10 06/19/12 documented as of this encounter
--- OUTSIDE RECORDS SUMMARY | 2024-03-07 09:23 | XMS_ITS | Encounter Summary ---
Author Organization [facility] [place] [address] Care Team Providers Care Securities Attorney Name Role Phone Marlon Levine MD Primary Care Provider + [phone] Encounter Details Date Type Department Care Team (Late st Contact Info) Description 10/31/2012 [place] [address] Nikki Hill MD [facility] [place] [address] Social History Tobacco Use Types Packs/Day Years [...] on filedocumented in this encounter Care Teams Securities Attorney Relationship Specialty Start Date End Date Marlon Levine MD [address] [place] [address] PCP - General 06/20/12 documented as of this encounter
--- OUTSIDE RECORDS SUMMARY | 2024-03-07 09:23 | XMS_ITS | Encounter Summary ---
Author Organization [facility] Address [facility] [place] [address] Care Team Providers Care Catch Basin Cleaner Name Role Phone Marlon Levine MD Primary Care Provider + [phone] Encounter Details Date Type Department Care Team (Late st Contact Info) Description 04/25/2011 Orders [place] [address] Jc Carpenter MD [facility] GENERAL [place] [address] Social History Tobacco Use Types Packs/Day Years [...] Carpenter MD IMG FILM LIBRARY ORD ERABLES [facility] [address] [facility] [place] [address] documented in this encounter Visit Diagnoses Not on filedocumented in this encounter Care Teams Catch Basin Cleaner Relationship Specialty Start Date End Date Marlon Levine MD [address] [place] [address] PCP - General 02/16/10 06/19/12 documented as of this encounter
--- OUTSIDE RECORDS SUMMARY | 2024-03-07 09:23 | XMS_ITS | Encounter Summary ---
Author Organization [facility] Address [facility] [place] [address] Care Team Providers Care Professional Engineer Name Role Phone Marlon Levine MD Primary Care Provider + [phone] Encounter Details Date Type Department Care Team (Late st Contact Info) Description 04/21/2010 2:35 PM EST Follow-Up [place] [address] Margarita Joe MD [facility] [place] [address] Discharge Disposition: Home Social History Tobacco Use [...] on filedocumented in this encounter Care Teams Professional Engineer Relationship Specialty Start Date End Date Marlon Levine MD [address] [place] [address] PCP - General 02/16/10 06/19/12 documented as of this encounter
--- OUTSIDE RECORDS SUMMARY | 2024-03-07 09:23 | XMS_ITS | Encounter Summary ---
Author Organization [facility] [place] [address] Care Team Providers Care Mat Man Name Role Phone Marlon Levine MD Primary Care Provider + [phone] Reason for Visit * Reason Onset Date Comments Other 11/20/2012 breast changes Encounter Details Date Type Department Care Team (Late st Contact Info) Description 11/20/2012 Telephone Hematology Oncology at [address] [phone] Cyndy Falcon, RN Other (breast [...] on filedocumented in this encounter Care Teams Mat Man Relationship Specialty Start Date End Date Marlon Levine MD [address] [place] [address] PCP - General 06/20/12 documented as of this encounter
--- OUTSIDE RECORDS SUMMARY | 2024-03-07 09:23 | XMS_ITS | Encounter Summary ---
Author Organization [facility] Address [facility] [place] [address] Care Team Providers Care Ccie Name Role Phone Marlon Levine MD Primary Care Provider [phone] Reason for Visit * Reason Comments Follow-up Encounter Details Date Type Department Care Team (Late st Contact Info) Description 03/23/2012 3:00 PM EST Follow-Up Hematology Oncology at [address] [phone] John Beltran MD [facility] [place] [address] Breast cancer (Primary Dx) Discharge Disposition: Home [...] negative. Ten LNs were seen, all negative. ER/CO negative. HER2/cynthia negative. B. Four cycles of [...] There was no ALI or perineural invasion. ER/CO negative. HER2/cynthia negative by FISH. B. In [...] today, she feels well. 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 No areas of pain.Her [...] site documented in this encounter Care Teams Ccie Relationship Specialty Start Date End Date Marlon Levine MD [address] [place] [address] PCP - General 02/16/10 06/19/12 documented as of this encounter
--- OUTSIDE RECORDS SUMMARY | 2024-03-07 09:23 | XMS_ITS | Encounter Summary ---
Author Organization [facility] [place] [address] Care Team Providers Care Vacuum Closing Machine Operator Name Role Phone Marlon Levine MD Primary Care Provider [phone] Reason for Visit * Reason Comments Follow-up Encounter Details Date Type Department Care Team (Late st Contact Info) Description 10/06/2010 2:30 PM EDT Follow-Up Hematology Oncology at [address] [phone] Melissa Chacko, [address] [place] [address], [place] [id number] Breast cancer (Primary Dx) Discharge Disposition: Home [...] 3:05 PM EDT Hematology/Oncology [place], [address] () - [phone] (fax) ESTABLISHED PATIENT EVALUATION: Problem List: 1. Cancer of the left breast, T2, N0, M0. A. Dx'd 01/29, s/p lumpectomy and ALND. Path-2.5-cm infiltrating ductal carcinoma, SBR score of 8. Final margins of resection were negative. Ten LNs were seen, all negative. ER/MS negative. HER2/cynthia negative. B. Four cycles of [...] There was no ALI or perineural invasion. ER/MS negative. HER2/cynthia negative by FISH. B. In [...] site documented in this encounter Care Teams Vacuum Closing Machine Operator Relationship Specialty Start Date End Date Marlon Levine MD [address] [place] [address] PCP - General 02/16/10 06/19/12 documented as of this encounter
--- OUTSIDE RECORDS SUMMARY | 2024-03-07 09:24 | XMS_ITS | Encounter Summary ---
Author Organization [facility] Address [address] [place] [address] Care Team Providers Care Electromechanical Engineer Name Role Phone Unknown, Provider Primary Care Provider Unabari ilable Encounter Details Date Type Department Care Team (Late st Contact Info) Description 01/26/2001 Results Only [facility] [place] [facility] [address] [place] [address] Jerri Bennett, [place] [facility] [address] [place] [address] [place] [address] Social History Tobacco Use Types Packs/Day Years Used Date Smoking Tobacco: Never Assessed Comments Unknown Sex and Gender Information Value Date Recorded Sex Assigned at Not on file Legal Sex Female 17:52 EST Gender Identity Not on file Sexual Orientation [...] Name: ? STEPHENSONBILLIE ? Accession #: ? [id number] : ? 1970 (Age: 30) ??F ?Collect Date: ? 01/26/2001 Location: ? [facility] ? Receive Date: ? 01/29/2001 Provider: ?JERRI BENNETT SMASHER Copy to: ? Specimen/Source: ?ThinPrep Pap Test, Cervix/Endocervix Last Menstrual Period: ? 01/19/01 ? SPECIMEN ADEQUACY ? Satisfactory for evaluation but limited by scant squamous epithelial component secondary to excessive blood. GENERAL CATEGORIZATION ? Within Normal Limits ? Document reviewed and electronically signed by: ? JENNIFER Barney(ASCP) ? Report Date: ??02/01/2001 10:37 End of Report YEISON MARINELLI 01/26/2001 01/29/2001 us Jerri Bennett SMASHER PATHOLOGY ORDERABLES Final R esult YEISON MARINELLI [address] [place] [address] documented in this encounter Visit Diagnoses Not on filedocumented in this encounter Care Teams Electromechanical Engineer Relationship Specialty Start Date End Date Unknown, Provider, PCP - General 07/26/08 06/16/12 documented as of this encounter
--- OUTSIDE RECORDS SUMMARY | 2024-03-07 09:24 | XMS_ITS | Encounter Summary ---
Author Organization [facility] Address [address] [place] [address] Care Team Providers Care Rivet Catcher Name Role Phone Marlon Levine MD Primary Care Provider [phone] Reason for Visit * Reason Comments Pleurisy left anterior lower ribsIt is bulging and it cramps up onset 1 week ago intermittent Encounter Details Date Type Department Care Team (Late st Contact Info) Description 06/17/2012 16:02 EDT - 06/17/2012 20:05 EDT Emergency [facility] Emergency Department - [address] [address] Orion Warner MD [address] [place] [address], Level 1 [place] [address] Emergency, MD Ghulam Musculoskeletal chest pain (Primary Dx) Discharge Disposition: Home or Self Care Social History Tobacco Use Types Packs/Day Years Used Date Smoking Tobacco: Never Smokeless Tobacco: Never Alcohol Use Standard Drinks/Week Comments No 0 (1 standard drink = 0.6 oz pur e alcohol) Comments No Sex and Gender Information Value Date Recorded Sex Assigned at Not on file Legal Sex Female 17:52 EST Gender Identity Not on file Sexual Orientation Not on file documented as of this encounter Last Filed Vital Signs Vital Sign Reading Time Taken Comments Blood Pressure 122/78 06/17/2012 1946 EDT Pulse 74 06/17/2012 1958 EDT Temperature 36.4 ??C (97.5 ??F) 06/17/2012 1605 EDT Respiratory Rate 18 06/17/2012 1958 EDT Oxygen Saturation 98% 06/17/2012 195 EDT Inhaled Oxygen Concentration - - Weight [...] * MUSCULOSKELETAL CHEST PAIN: AFTER YOUR VISIT (MALAWIAN) documented in this encounter Discharge Disposition Disposition Code Departure Means Destination Home or Self Care documented in this encounter ED Notes * Jacob Cui RN - 06/17/2012 1811 EDT Unsuccessful attempts made by this author and 2 ED techs to insert PIV. WELDING MACHINE OPERATOR ELECTRON BEAM at bedside at this time * Orion [...] IV nurse intravenous access was unobtainable. Chest [id number]-[id number] with radiologist, no acute cardiopulmonary process, and numerous clips presentsecondary to bilateral mastectomies Laboratory [id number]-[id number] not elevated. Patient with reproducible musculoskeletal chest [...] encounter Miscellaneous Notes * Scanned Note-Null - MEDICATION TECHNICIAN, SCAN 2 - 06/21/2012 0981 EDT documented in this encounter Plan of [...] the findings. Orion Warner MD IMG DIAGNOSTIC IMAGING ORDERA BLES Final Result * DIFFERENTIAL (06/17/2012 17:05 EDT) % Neutrophils [...] EDT Orion Warner MD HEMATOLOGY & PF4 ORDERABLES F inal Result [facility] [address] [place] [address] * SMEAR REVIEW (06/17/2012 17:05 EDT) Smear scan only: Slide was examined by a technologist to verify the WBC and/or platelet count. [facility] 06/17/2012 17:0 5 EDT 06/17/2012 18:47 EDT Orion Warner MD HEMATOLOGY & PF4 ORDERABLES F inal Result Performing Organization Address City/[facility] Co de Phone Number [facility] [address] [place] [address] * HEMAGRAM (06/17/2012 17:05 EDT) WBC 5.91 4.0 - 12.4 K/cmm [facility] [...] EDT Orion Warner MD HEMATOLOGY & PF4 ORDERABLES F inal Result Performing Organization Address [facility] de Phone Number [facility] [address] [place] [address] * D-DIMER (06/17/2012 17:05 EDT) D-Dimer <200 <230 ng/mL [facility] Comment:CUTOFF VALUE FOR THE EXCLUSION OF DVT and PE: 230 ng/mL D-dimer units 06/17/2012 17:0 5 EDT 06/17/2012 18:47 EDT Orion Warner MD HEMATOLOGY & PF4 ORDERABLES F inal Result Performing Organization Address City/[facility] Co de Phone Number [facility] [address] [place] [address] * PROTIME (06/17/2012 17:05 EDT) Pro Time 10.5 9.5 - 13.1 secs [facility] I.N.R. 0.9 0.9 - 1.1 Ratio [facility] Comment: Moderate Intensity Coumadin INR = 2.0-3.0 Adjustments in anticoagulant therapy dose should be based upon the INR and NOT the Pro Time. Blood specimen (specimen) 06/17/2012 17:05 EDT 06/17/2012 18:47 EDT Orion Warner MD HEMATOLOGY & PF4 ORDERABLES F inal Result Performing Organization Address [facility] de Phone Number [facility] [address] [place] [address] * CREATININE (06/17/2012 17:05 EDT) Pathologist [facility] Creatinine 0.56 0.52 - 1.04 mg/dl [facility] Comment:Slight hemolysis GFR, Calculated >60 >60 ml/min/1.7 3m2 [facility] Blood specimen (specimen) 06/17/2012 17:05 EDT 06/17/2012 18:47 EDT Orion Warner MD CHEMISTRY & BLOOD GAS ORDERAB LES Final Result Performing Organization Address [facility] de Phone Number [facility] [address] [place] [address] * BUN (06/17/2012 17:05 EDT) BUN 19 10 - 26 mg/dl [facility] Comment: Slight hemolysis Results may be affected due to hemolysis. Blood specimen (specimen) 06/17/2012 17:05 EDT 06/17/2012 18:47 EDT Orion Warner MD CHEMISTRY & BLOOD GAS ORDERAB LES Final Result Performing Organization Address [facility] Co de Phone Number [facility] [address] [place] [address] * ELECTROLYTES (06/17/2012 17:05 EDT) Sodium 145 136 - 145 mEq/L [facility] Comment:Slight hemolysis Potassium 4.9 3.5 - 5.0 mEq/L [facility] Comment: Slight hemolysis Hemolysis may elevate potassium result. Chloride 103 96 - 110 mEq/L [facility] Comment:Slight hemolysis CO2 26 24 - 32 mEq/L [facility] Comment:Slight hemolysis Blood specimen (specimen) 06/17/2012 17:05 EDT 06/17/2012 18:47 EDT Orion Warner MD CHEMISTRY & BLOOD GAS ORDERAB LES Final Result Performing Organization Address [facility] Co de Phone Number [facility] [address] [place] [address] * GLUCOSE, SERUM (06/17/2012 17:05 EDT) Glucose, Serum 79 70 - 100 mg/dl [facility] Comment: Slight hemolysis Results may be affected due to hemolysis. Blood specimen (specimen) 06/17/2012 17:05 EDT 06/17/2012 18:47 EDT Orion Warner MD CHEMISTRY & BLOOD GAS ORDERAB LES Final Result Performing Organization Address [facility] de Phone Number [facility] [address] [place] [address] documented in this encounter Visit Diagnoses Diagnosis [...] 06/17/2012 documented in this encounter Care Teams Rivet Catcher Relationship Specialty Start Date End Date Marlon Levine MD [address] [place] [address] PCP - General 06/17/12 documented as of this encounter
--- OUTSIDE RECORDS SUMMARY | 2024-03-07 09:24 | XMS_ITS | Encounter Summary ---
Author Organization [facility] Address [address] [place] [address] Care Team Providers Care Web Architect Name Role Phone Unknown, Provider Primary Care Provider Sarah ilable Encounter Details Date Type Department Care Team (Late st Contact Info) Description 03/22/2005 Before PRISM Converted Visit (Maple) [facility] - Maple conversion [address] [place] [address] Deep Rutherford MD MSc [address] [place] [address] Social History Tobacco Use Types Packs/Day Years [...] EST DIVISION OF SURGICAL ONCOLOGY - [facility] PROGRESS/FOLLOWUP NOTE - 03/22/2005 Reason for [...] 2.9 cm in greatest dimension, poorly differentiated, ER/PA negative, with 10% DCIS component, all margins [...] the characteristics of the tumor and its ER/PA negative status, chemotherapy was thought to be of greatbenefit. I will see the patient back in my clinic in three months for overall follow-up and reassessment. Atthat time I will also readdress the range of motion of the left arm. Signed by Deep Rutherford MD 03/24/2005 11:51 Timoteo Foster MD Deep Rutherford MD - Deep Rutherford MD P - KKB Job ID: [id number] Document ID: [id number] cc: Cancer Data Registry Marlon Levine MD cc: Cancer Data Registry Marlon Levine MD documented in this encounter Plan of Treatment Not on file documented as of this encounter Visit Diagnoses Not on filedocumented in this encounter Care Teams Web Architect Relationship Specialty Start Date End Date Unknown, Provider, PCP - General 07/26/08 06/16/12 documented as of this encounter
--- OUTSIDE RECORDS SUMMARY | 2024-03-07 09:24 | XMS_ITS | Encounter Summary ---
Author Organization [facility] Address [address] [place] [address] Care Team Providers Care Bank Vault Custodian Name Role Phone Unknown, Provider Primary Care Provider Unava ilable Encounter Details Date Type Department Care Team (Late st Contact Info) Description 02/26/2004 Results Only [facility] - Maple conversion [address] [place] [address] Laury Mendoza, BURR BENCH HAND [address] [place] [id number] Social History Tobacco Use Types Packs/Day Years [...] 69. [facility] Report Status Final [id number] [facility] 02/26/2004 14:2 8 EST 03/05/2004 14:28 EST us Laury Mendoza NP MICROBIOLOGY - GENERAL ORDERABL ES Final Result [facility] [address] [place] [address] * CYTOPATHOLOGY (02/26/2004 0:00 EST) Pathology Report: CYTOPATHOLOGY REPORT Reports generated via electronic interface contain original data; however they are lacking the format of the original report. Caution should be taken when reading/interpreti ng unformatted reports. Name: ? BILLIE STEPHENSON ? Accession #: ? [id number] : ? 1970 (Age: 33) ??F ?Collect [...] Document reviewed and electronically signed by: ? Matt Montiel, JENNIFER(ASCP) ? Report Date: ??03/05/2004 12:51 End of Report [facility] 02/26/2004 03/01/2004 us Laury Mendoza NP PATHOLOGY ORDERABLES Final Resu lt Performing Organization Address City/State/[facility] Co de Phone Number [facility] [address] [place] [address] documented in this encounter Visit Diagnoses Not on filedocumented in this encounter Care Teams Bank Vault Custodian Relationship Specialty Start Date End Date Unknown, Provider, PCP - General 07/26/08 06/16/12 documented as of this encounter
--- OUTSIDE RECORDS SUMMARY | 2024-03-07 09:24 | XMS_ITS | Encounter Summary ---
Author Organization [facility] Address [address] [place] [address] Care Team Providers Care Awning Frame Maker Name Role Phone Marlon Levine MD Primary Care Provider [phone] Encounter Details Date Type Department Care Team (Late st Contact Info) Description 01/19/2018 Results Only [facility] [phone] Anat Hawthorne, CREW FOREMAN [address] [facility] [address] [place] [address] Social History Tobacco Use Types Packs/Day Years [...] ? BILLIE JENNINGS ? Accession #: ? [id number] ? : ? 1970 (Age: 47) ??F ?Collect Date: ? 01/19/2018 ? Location: ? [facility] ? Receive Date: ? 01/23/2018 ? Provider: ANAT HAWTHORNE CREW FOREMAN Copy to: ? Final Report SPECIMEN ADEQUACY ? Satisfactory for Evaluation - transformation zone component present GENERAL CATEGORIZATION ? Epithelial Cell Abnormality INTERPRETATION ? Squamous Cell Abnormality - Atypical squamous cells, undetermined significance (ASC-US). EDUCATIONAL NOTES/RECOMMENDAT IONS ? [facility] recommends following ASCCP's 2012 Updated Consensus Guidelines for the Management of Abnormal Cervical Cancer Screening Tests and Cancer Precursors (JLGTD, 2013; 17(5):S1-S27). ??Consensus guidelines are available online at www.asccp.org. Previous Gynecologic Pathology: HSIL: [id number] DANTE II-III: 2016 Other: Additional clinical information: [...] types 16,18,31,33,35, 39,45,51,52,56,58 ,59,66, and 68 by die sinker mediated amplification. Comments Document reviewed and electronically signed by: ? System Interface ? Report date: 02/02/2018 By the signature above, the attending physician certifies that he/she has personally conducted a gross and/or microscopic examination of the described specimens and rendered or confirmed the above diagnosis. End of Report [facility] 01/19/2018 01/23/2018 us Anat Hawthorne CREW FOREMAN PATHOLOGY ORDERABLES Verona caldwell Result [facility] [address] [place] [address] documented in this encounter Visit Diagnoses Not on filedocumented in this encounter Care Teams Awning Frame Maker Relationship Specialty Start Date End Date Marlon Levine MD [address] [place] [address] PCP - General 06/17/12 documented as of this encounter
--- OUTSIDE RECORDS SUMMARY | 2024-03-07 09:24 | XMS_ITS | Encounter Summary ---
Author Organization [facility] Address [address] [place] [address] Care Team Providers Care Contract Admin Name Role Phone Unknown, Provider Primary Care Provider Sarah ilable Encounter Details Date Type Department Care Team (Late st Contact Info) Description 05/01/2006 Results Only [facility] - Maple conversion [address] [place] [address] Sofia Obrien FNP [address] [place], [place] [id number] Social History Tobacco Use Types Packs/Day Years [...] ? BILLIE STEPHENSON ? Accession #: ? [id number] : ? 1970 (Age: 35) ??F ?Collect Date: ? 05/01/2006 Location: ? [facility] ? Receive Date: ? 05/03/2006 Provider: ?SOFIA OBRIEN INVESTMENT EXECUTIVE Copy to: ? Specimen/Source: ?ThinPrep Pap Test, Cervix/Endocervix, processed on Beep ThinPrep Imaging System, with manual evaluation Last [...] End of Report [facility] 05/01/2006 05/03/2006 us Sofia DOWDP PATHOLOGY ORDERABLES Final Resul t [facility] [address] [place] [address] documented in this encounter Visit Diagnoses Not on filedocumented in this encounter Care Teams Contract Admin Relationship Specialty Start Date End Date Unknown, Provider, PCP - General 07/26/08 06/16/12 documented as of this encounter
--- OUTSIDE RECORDS SUMMARY | 2024-03-07 09:24 | XMS_ITS | Encounter Summary ---
Author Organization [facility] Address [address] [place] [address] Care Team Providers Care Food Mixer Repairer Name Role Phone Unknown, Provider Primary Care Provider Unabari ilable Encounter Details Date Type Department Care Team (Late st Contact Info) Description 03/10/2005 Results Only [facility] Surgical Oncology - [facility] [address] [place] [address] Lamont Marroquin MD [address] [address] Social History Tobacco Use Types Packs/Day [...] when reading/interpretin g unformatted reports. Name: ? NATALIO BILLIE L ? Accession #: ? [id number] ? : ? 1970 (Age: 34) ??F [...] identified Lymph nodes: ?0/10 (positive/total count) ER/ CT: ?ER negative (0%); CT negative (0%)([id number]) C-erb-B2: ? Negative ([id number]) ?? Final Pathologic Diagnosis: ? A. ?Breast, [...] each (Dr. Cole)/mpl End of Report [facility] 03/10/2005 03/10/2005 11: 29 EST us Lamont Marroquin MD MSc PATHOLOGY ORDERABLES Final Re sult [facility] [address] [place] [address] documented in this encounter Visit Diagnoses Not on filedocumented in this encounter Care Teams Food Mixer Repairer Relationship Specialty Start Date End Date Unknown, Provider, PCP - General 07/26/08 06/16/12 documented as of this encounter
--- OUTSIDE RECORDS SUMMARY | 2024-03-07 09:24 | XMS_ITS | Referral Summary ---
Author Organization [facility] Address [address] [place] [address] Care Team Providers Care Tile Layer Helper Name Role Phone Marlon Levine MD Primary Care Provider [phone] Allergies Active Allergy Reactions Criticality Noted Date Comments Erythromycin 06/17/2012 Medications No known medications Social History Tobacco Use Types Packs/Day Years Used Date Smoking Tobacco: Never Smokeless Tobacco: Never Alcohol Use Standard Drinks/Week Comments No 0 (1 standard drink = 0.6 oz pur e alcohol) Interpersonal Safety Answer Date Record ed Physically Hurt Never 10/27/2019 Verbally Threaten Not on file 10/27/2019 Comments No Sex and Gender Information Value [...] Rate 18 06/17/20121957 EDT Oxygen Saturation 98% 06/17/20121957 EDT Inhaled Oxygen Concentration - - Weight 88.5 kg (195 lb) 06/17/2012 1605 EDT Height 175.3 cm (5' 9) 06/17/2012 1605 EDT Body Mass Index 28.8 06/17/2012 1605 EDT Plan of Treatment Not on file Insurance MEDICAID [place] Care Teams Tile Layer Helper Relationship Specialty Start Date End Date Marlon Levine MD [address] [place] [address] PCP - General 06/17/12
--- OUTSIDE RECORDS SUMMARY | 2024-03-07 09:24 | XMS_ITS | Encounter Summary ---
Author Organization [facility] Address [address] [place] [address] Care Team Providers Care Supervisor Metal Fabricating Name Role Phone Unknown, Provider Primary Care Provider Sarah manzanoable Encounter Details Date Type Department Care Team (Late st Contact Info) Description 04/18/2011 Results Only [facility] Laboratory Services - [facility] ([facility]) [address] [place] [address] Maryann Gillespie NP Social History Tobacco Use Types Packs/Day Years [...] ? BILLIE STEPHENSON ? Accession #: ? [id number] ? : ? 1970 (Age: 40) ??F ?Collect Date: ? 04/18/2011 ? Location: ? [facility] ? Receive Date: ? 04/19/2011 ? Provider: MARYANN GILLESPIE BANKING MANAGEMENT CONSULTING MANAGER Copy to: MORRIS CARTAGENA MD ? Final Report SPECIMEN ADEQUACY ? Satisfactory for Evaluation - transformation zone component present - scant squamous epithelial component secondary to excessive inflammation GENERAL CATEGORIZATION ? Negative for Intraepithelial Lesion or Malignancy ?? Last Menstural Period: 04/04/11 Hormonal/Contracep tive status: Intrauterine device: paraguard Treatment History: Chemotherapy: 2350-8033 Radiation therapy: 9757-7986 Other: Additional clinical information: pap 12/02 neg, pt hx of breast cancer in 6383-9912 Specimen/Source: ??Pap Test, Cervix/Endocervix, ThinPrep Imaging System with manual evaluation Document reviewed and electronically signed by: ? JENNIFER Knox(ASCP) ? Report ??Date: 04/20/2011 16:45 HPV with [...] of Report [facility] 04/18/2011 04/19/2011 us Maryann Gillespie BANKING MANAGEMENT CONSULTING MANAGER PATHOLOGY ORDERABLES Final Re sult [facility] [address] [place] [address] documented in this encounter Visit Diagnoses Not on filedocumented in this encounter Care Teams Supervisor Metal Fabricating Relationship Specialty Start Date End Date Unknown, Provider, PCP - General 07/26/08 06/16/12 documented as of this encounter
--- OUTSIDE RECORDS SUMMARY | 2024-03-07 09:24 | XMS_ITS | Encounter Summary ---
Author Organization [facility] Address [address] [place] [address] Care Team Providers Care Beam House Inspector Name Role Phone Unknown, Provider Primary Care Provider Sarah romano Encounter Details Date Type Department Care Team (Late st Contact Info) Description 09/11/2009 Results Only [address] [address] Cami Louis MD Social History Tobacco Use [...] ? BILLIE STEPHENSON ? Accession #: ? [id number] ? : ? 1970 (Age: 39) ??F [...] Report ? [facility] 09/11/2009 09/15/2009 us Cami Louis MD PATHOLOGY ORDERABLES Final Resul t [facility] [address] [place] [address] documented in this encounter Visit Diagnoses Not on filedocumented in this encounter Care Teams Beam House Inspector Relationship Specialty Start Date End Date Unknown, Provider, PCP - General 07/26/08 06/16/12 documented as of this encounter
--- OUTSIDE RECORDS SUMMARY | 2024-03-07 09:24 | XMS_ITS | Encounter Summary ---
Author Organization [facility] Address [address] [place] [address] Care Team Providers Care Elevator Constructor Name Role Phone Marlon Levine MD Primary Care Provider [phone] Reason for Visit * Reason Onset Date Comments Results 07/28/2022 Encounter Details Date Type Department Care Team (Late st Contact Info) Description 07/28/2022 Telephone [facility] Hematology & Oncology - [facility] [address] [place], [place] [address] Dick Burt MS [address] [place], [place] [id number] Results Social History Tobacco Use Types Packs/Day [...] Encounter - Dick Burt MS - 07/28/2022 4405 EDT Spoke to Antonia regarding genetic test [...] on filedocumented in this encounter Care Teams Elevator Constructor Relationship Specialty Start Date End Date Marlon Levine MD [address] [place] [address] PCP - General 06/17/12 documented as of this encounter
--- OUTSIDE RECORDS SUMMARY | 2024-03-07 09:24 | XMS_ITS | Encounter Summary ---
Author Organization [facility] Address [address] [place] [address] Care Team Providers Care Dish Room Worker Name Role Phone Marlon Levine MD Primary Care Provider [phone] Reason for Visit * Reason Onset Date Comments Appointment Related 04/26/2022 Encounter Details Date Type Department Care Team (Late st Contact Info) Description 04/26/2022 Telephone [facility] Cancer Center Hematology & Oncology - [address] [address] Fcp, Provider, Appointment Related Social History Tobacco [...] on filedocumented in this encounter Care Teams Dish Room Worker Relationship Specialty Start Date End Date Marlon Levine MD [address] [place] [address] PCP - General 06/17/12 documented as of this encounter
--- OUTSIDE RECORDS SUMMARY | 2024-03-07 09:24 | XMS_ITS | Encounter Summary ---
Author Organization [facility] Address [address] [place] [address] Care Team Providers Care Securities Sales Associate Name Role Phone Unavailable Primary Care Provider Unavailabl e Encounter Details Date Type Department Care Team (Late st Contact Info) Description 03/22/2005 11:04 EST Hospital Encounter [facility] [address] [place] [address] Deep Rutherford MD MSc [address] [place] [phone] Social History Tobacco Use Types Packs/Day [...] ? BILLIE STEPHENSON ? Accession #: ? [id number] ? : ? 1970 (Age: 37) ??F ?Collect Date: ? 12/11/2007 ? Location: ? [facility] ? Receive Date: ? 12/11/2007 ? Provider: ?JERRI FABIÁN MANAGER CORPORATE RESPONSIBILITY ? Copy to: ? Specimen/Source: ?ThinPrep Pap [...] reviewed and electronically signed by: ? Jenna Willislogg, CT(ASCP) ? Report Date: ??12/13/2007 14:50 ? End of Report ? [facility] 12/11/2007 12/11/2007 us Jerri Bennett MANAGER CORPORATE RESPONSIBILITY PATHOLOGY ORDERABLES Final R esult [facility] [address] [place] [address] documented in this encounter Visit Diagnoses Not on filedocumented in this encounter
--- OUTSIDE RECORDS SUMMARY | 2024-03-07 09:24 | XMS_ITS | Encounter Summary ---
Author Organization [facility] Address [address] [place] [address] Care Team Providers Care Brim Molder Name Role Phone Marlon Levine MD Primary Care Provider [phone] Encounter Details Date Type Department Care Team (Latest Contact Info) Description 03/02/2018 9:58 EST - 03/02/2018 23:59 EST Hospital Encounter [address] [address] Unknown, Provider, MD Discharge Disposition: Home or Self Care [...] Code Departure Means Destination Home or Self Intermediate documented in this encounter Plan of Treatment Not on file documented as of this encounter Visit Diagnoses Not on filedocumented in this encounter Care Teams Brim Molder Relationship Specialty Start Date End Date Marlon Levine MD [address] [place] [address] PCP - General 06/17/12 documented as of this encounter
--- OUTSIDE RECORDS SUMMARY | 2024-03-07 09:24 | XMS_ITS | Encounter Summary ---
Author Organization [facility] Address [address] [place] [address] Care Team Providers Care Security Architect Name Role Phone Unknown, Provider Primary Care Provider Sarah ilable Encounter Details Date Type Department Care Team (Late st Contact Info) Description 03/02/2005 Results Only [facility] Surgical Oncology - [facility] [address] [place] [address] Lamont Marroquin MD [address] [address] Social History Tobacco Use Types [...] ? BILLIE LANCE ? Accession #: ? [id number] ? : ? 1970 (Age: 34) ??F [...] identified Lymph nodes: ?0/10 (positive/total count) ER/ NV: ?See separate report C-erb-B2: ? See separate [...] reported separately in an addendum. ??(Dr. Abimael Stevenson)/[facility] Document reviewed and electronically signed by: SHANNON WHEELER [facility] Report ??Date: 03/07/2005 16:53 By the signature above, the attending physician certifies that he/she has personally conducted a gross and/or microscopic examination of the described specimens and rendered or confirmed the above diagnosis. Specimen(s) Received: A. ?Left breast mass (#1) B. ?Additional margin left breast, suture dbl long-lat, single short-superior, xwv-bcadk-zwclaqro; 3 clips-anterior, single clip-superior, 2 clips-lateral C. ?Newcomb node, left #1 Ct 1267 D. ?Non-sentinel node #1 E. ?? Newcomb node #2, Ct 2658 F. ?Newcomb node #3, Ct 363 G. ?Newcomb node #4, Ct 364 H. ?#5 sentinel node, left, Ct 485 I. ?Newcomb node left XVIVO 82 J. ?XVIVO 81 [...] Patricia Dean; 03/02/05 at 10:42 AM 3. ?Newcomb node, left, #1, CT 1267 (SP1): 1 lymph node negative for malignancy (0/1) ??Dr. Delilah Dean; ? 03/02/05 at 12:20 4. ?Non-sentinel node (gross consult): ??1 lymph node macroscopically negative for malignancy ??Dr. Mazariegos ? Dianne; 03/02/05 at 12:20 5. ?Newcomb node #2 CT 2658 (SP2): ??1 lymph node negative for malignancy (0/1) ??Dr. Delilah Dean; 03/02/05 6. ?Newcomb node #3 CT 363 (gross consult): ??2 lymph nodes macroscopically negative for malignancy ??DrWendy ?Delilah Dean; 03/02/05 at 12:20 7. ?Newcomb node #4 CT 364 (gross consult): ??1 lymph node macroscopically negative for malignancy ??Dr. Delilah Dean; 03/02/05 at 12:20 8. ?#5 sentinel node, left CT 485 (SP3): ??1 lymph node negative for malignancy (0/1) ??Dr. Dleilah Dean; 03/02/05 at 12:20 9. ?Newcomb node left ex-vivo 82 (gross consult): ??1 lymph node macroscopically negative for malignancy ??Dr. Delilah Dean; 03/02/05 at 12:40 ? 10. Newcomb node left ex-vivo 81 (gross consult): ?? [...] as (C). Received fresh labelled Lance and V-zmt-rasrltsl node #1 is a 2.3 x 0.6 [...] submitted entirely as (H). Received fresh labelled Natalio and I-left axillary sentinel node XVIVO 82 [...] Tissue submitted: Paraffin embedded tissue block labelled [id number] (A27) from [facility]. An immunohistochemical assay for estrogen receptors (ER1D5, Dako) and progesterone receptors (HtX5550, Dako) has been performed on this specimen. [...] reagents' ??performance characteristics have been determined by [facility]. ??This laboratory is certified under the Clinical [...] Tissue submitted: Paraffin embedded tissue block labelled [id number] (A27) from [facility] Fixative: ?? Formalin ??(Fixation in 10% neutral buffered formalin for 18-24 hours with maximum tissue thickness of 3-4 millimeters is recommended for best assay performance. ??Dako HerceptestTM should not be performed on alcohol fixed tissues.) ? A c-erb-B2 (Her2/cynthia) assay (Dako HerceptestTM) was requested by Dr. Marroquin on this breast carcinoma. ??The assay was performed under appropriate conditions according to the lead performance support analyst' s instructions with appropriate assay and tissue [...] confirmed the above diagnosis. End of Report [facility] 03/02/2005 03/02/2005 10: 16 EST us Lamont Marroquin MD MSc PATHOLOGY ORDERABLES Final Re sult [facility] [address] [place] [address] documented in this encounter Visit Diagnoses Not on filedocumented in this encounter Care Teams Security Architect Relationship Specialty Start Date End Date Unknown, Provider, PCP - General 07/26/08 06/16/12 documented as of this encounter
--- OUTSIDE RECORDS SUMMARY | 2024-03-07 09:24 | XMS_ITS | Encounter Summary ---
Author Organization [facility] [place] [address] Care Team Providers Care Poultry Farm Laborer Name Role Phone Marlon Levine MD Primary Care Provider [phone] Encounter Details Date Type Department Care Team (Late st Contact Info) Description 06/28/2006 Orders Only [facility] [place] [phone] Angel Rosales MD OBSTETRICS & GYNECOLOGY Social [...] 11:47 AM EDT) Surgical Pathology Report [id number] ? Location: The signing pathologist has (i) [...] tissue is bisected and entirely submitted. ??A sales representative gas service section of the larger portion of tissue [...] AVERY 06/28/2006 11:4 7 AM EDT Angel Roslaes MD PATHOLOGY/CYTOLOGY O RDERABLES MENDEL AVERY documented in this encounter Visit Diagnoses Not on filedocumented in this encounter Care Teams Poultry Farm Laborer Relationship Specialty Start Date End Date Marlon Levine MD [address] [place] [address] PCP - General 06/20/12 documented as of this encounter
--- OUTSIDE RECORDS SUMMARY | 2024-03-07 09:24 | XMS_ITS | Encounter Summary ---
Author Organization [facility] Address [address] [place] [address] Care Team Providers Care Jacquard Loom Heddles Tier Name Role Phone Marlon Levine MD Primary Care Provider [phone] Reason for Visit * Reason Comments Genetic Evaluation Telemedicine Video Visit Encounter Details Date Type Department Care Team (Late st Contact Info) Description 07/12/2022 12:00 EDT Telemedicine [facility] Hematology & Oncology - [facility] [address] [place], [place] [id number] Zuleika Nash, MS [address] [place], [place] [address] Encounter for nonprocreative genetic counseling (Primary Dx); [...] this encounter Progress Notes * Zuleika Nash, - 07/12/2022 1200 EDT Antonia accompanied her [...] genetic testing. Antonia was diagnosed with breast cancer at the age of 34 in her left breast and was treated with breast conserving therapy followed by chemotherapy and radiation therapy. She had a ductal cancer that was ER negative. At age 37 she developeda second primary breast cancer in her right breast and at that time had bilateral mastectomies followed by chemotherapy. 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 Antonia [facility] for BRCA 1 and 2 and no mutations were identified. She did proceed with reconstructive surgery using a flap procedure. Since that time she has donewell. She does report an episode of pancreatitis for which she was hospitalized about 9 years ago. Currently her only medication is for an overactive bladder. She did have a LEEP procedure in the past as well. She had a colonoscopy about 4 years ago polyps were identified. She recently started seeing dermatology. Antonia lives in [facility] [place] and her medical care is through [facility]. I reviewed with Antonia and her sister options for extended genetic testing using a multi gene panel.Following a discussion of the risk benefits and limitations Antonia was interested in proceeding witha 47 gene Common hereditary cancer panel through [employer]. She requested that a saliva collection kit [...] breast documented in this encounter Care Teams Jacquard Loom Heddles Tier Relationship Specialty Start Date End Date Marlon Levine MD [address] [place] [address] PCP - General 06/17/12 documented as of this encounter
--- OUTSIDE RECORDS SUMMARY | 2024-03-07 09:24 | XMS_ITS | Encounter Summary ---
Author Organization [facility] Address [address] [place] [address] Care Team Providers Care Auto Painter Name Role Phone Unavailable Primary Care Provider Unavailabl e Encounter Details Date Type Department Care Team (Late st Contact Info) Description 03/02/2005 6:06 EST - 03/02/2005 11:59 EST Hospital Encounter [facility] Perioperative Services- [facility] [address] [place] [address] Deep Rutherford MD [address] [address] Discharge Disposition: Home or Self Care Social [...] PROCEDURE REPORT PT TYPE: OPPROC PT LOC: [id number] SERVICE DATE: 03/02/2005 SURGEON: Deep Rutherford MD SENIOR BUSINESS OBJECTS DEVELOPER: Bogdan Hawkins MD PREOPERATIVE DIAGNOSIS: Left breast [...] Signed by Deep Rutherford MD 03/07/2005 12:31 Tushard Timoteo Ch MD Deep Rutherford MD - Deep Rutherford MD A - RICARDO Job ID: [id number] Document ID: [id number] cc: Deep Rutherford MD Cancer Data Registry [...] discussed with Dr. Rutherford following the exam. us Deep Rutherford MD MSc IMG MAMMOGRAPHY ORDERABLES Fi nal Result * NM INJECTION ONLY SENT NODE (03/02/2005 [...] left breast preoperatively. No films were obtained. us Deep Rutherford MD MSc IMG NM ORDERABLES Final Resul t documented in this encounter Visit Diagnoses Not on filedocumented in this encounter
--- OUTSIDE RECORDS SUMMARY | 2024-03-07 09:24 | XMS_ITS | Encounter Summary ---
Author Organization [facility] Address [address] [place] [address] Care Team Providers Care Sales Administration Manager Name Role Phone Marlon Levine MD Primary Care Provider [phone] Encounter Details Date Type Department Care Team (Late st Contact Info) Description 10/08/2014 Results Only [facility]- [facility] [phone] Mary Alice Ruby MD [address] [place] [address] [address] [place] [address] Social History Tobacco Use Types Packs/Day Years [...] ? BILLIE JENNINGS ? Accession #: ? [id number] ? : ? 1970 (Age: 44) ??F [...] 33,35,39,45,51,52, 56,58,59,66, and 68 is detected by financial institution vice president mediated amplification. High and intermediate risk HPV [...] the above diagnosis. End of Report [facility] 10/08/2014 10/09/2014 us Mary Alice Ruby MD PATHOLOGY ORDERABLES Final Resu lt [facility] [address] [place] [address] documented in this encounter Visit Diagnoses Not on filedocumented in this encounter Care Teams Sales Administration Manager Relationship Specialty Start Date End Date Marlon Levine MD [address] [place] [address] PCP - General 06/17/12 documented as of this encounter
--- OUTSIDE RECORDS SUMMARY | 2024-03-07 09:24 | XMS_ITS | Encounter Summary ---
Author Organization [facility] Address [address] [place] [address] Care Team Providers Care Reservoir Engineering Advisor Name Role Phone Unknown, Provider Primary Care Provider Unava ilable Encounter Details Date Type Department Care Team (Late st Contact Info) Description 02/15/2005 Results Only [facility] Surgical Oncology - [address] [address] Lamont Marroquin MD [address] [address] Social History Tobacco Use Types [...] ? BILLIE LANCE ? Accession #: ? [id number] ? : ? 1970 (Age: 34) ??F [...] a duct or parenchymal breast tissue. ??(Dr. Le)/[facility] Document reviewed and electronically signed by: [...] submitted entirely as (A1) and (A2). ??(Dr. Le)/[facility] End of Report [facility] 02/15/2005 02/15/2005 15: 17 EST us Lamont Marroquin MD MSc PATHOLOGY ORDERABLES Final Re sult [facility] [address] [place] [id number] * CYTOPATHOLOGY (02/15/2005 0:00 EST) Pathology Report: CYTOPATHOLOGY REPORT Reports generated via electronic interface contain original data; however they are lacking the format of the original report. Caution should be taken when reading/interpreti ng unformatted reports. Name: ? BILLIE LANCE ? Accession #: ? [id number] : ? 1970 (Age: 34) ??F ?Collect [...] but do not exclude underlying papilloma. (Dr. Moreno)/[facility] Document reviewed and electronically signed by: ? IVANNA MORENO MD [facility] Report Date: ??02/16/2005 13:31 By the [...] [facility] 02/15/2005 02/15/2005 15: 59 EST us Lamont Marroquin MD MSc PATHOLOGY ORDERABLES Final Re sult [facility] [address] [place] [address] documented in this encounter Visit Diagnoses Not on filedocumented in this encounter Care Teams Reservoir Engineering Advisor Relationship Specialty Start Date End Date Unknown, Provider, PCP - General 07/26/08 06/16/12 documented as of this encounter
--- OUTSIDE RECORDS SUMMARY | 2024-03-07 09:24 | XMS_ITS | Encounter Summary ---
Author Organization [facility] Address [address] [place] [address] Care Team Providers Care Broadcast Chief Engineer Name Role Phone Unknown, Provider Primary Care Provider Sarah ilyg Encounter Details Date Type Department Care Team (Late st Contact Info) Description 02/15/2005 Before PRISM Converted Visit (Maple) [facility] - Maple conversion [address] [place] [address] Deep Rutherford MD MSc [address] [place] [address] Social History Tobacco Use Types Packs/Day Years [...] any biopsies and was sent for evaluation [facility]. She has no personal history of [...] lives at home with her and daughter. 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 The patient continues to have regular menstrual cycles. with delivery at age 22. The patient's LMP was 02/05/05. She is scheduled for pelvic examination in 02/28. The patient denies any fertility drug use. She has a 8-utoc-jmwnllo of oral control pill use. She has [...] or right axilla. Diagnostics: Outside report from [facility] mammography dated 02/11/05 revealed an [...] obtained. The patient will meet with the transcription coordinator to select a date for surgery. Signed by Deep Rutherford MD 02/21/2005 16:34 Timoteo Foster MD Deep Rutherford MD - Deep Rutherford MD P - KKB Job ID: [id number] Document ID: [id number] cc: Cami Louis MD Cancer Data Registry Marlon Levine MD cc: Cami Louis MD Cancer Data Registry Marlon Levine MD documented in this encounter Plan of Treatment Not on file documented as of this encounter Visit Diagnoses Not on filedocumented in this encounter Care Teams Broadcast Chief Engineer Relationship Specialty Start Date End Date Unknown, Provider, PCP - General 07/26/08 06/16/12 documented as of this encounter
--- OUTSIDE RECORDS SUMMARY | 2024-03-07 09:24 | XMS_ITS | Encounter Summary ---
Author Organization [facility] Address [address] [place] [address] Care Team Providers Care Job Coach Name Role Phone Marlon Levine MD Primary Care Provider [phone] Encounter Details Date Type Department Care Team (Latest Contact Info) Description 01/05/2016 11:29 EDT - 01/05/2016 23:59 EDT Hospital Encounter [address] [address] Unknown, Provider, MD Discharge Disposition: Home or [...] Code Departure Means Destination Home or Self Half-Way documented in this encounter Plan of Treatment Not on file documented as of this encounter Visit Diagnoses Not on filedocumented in this encounter Care Teams Job Coach Relationship Specialty Start Date End Date Marlon Levine MD [address] [place] [address] PCP - General 06/17/12 documented as of this encounter
--- OUTSIDE RECORDS SUMMARY | 2024-03-07 09:24 | XMS_ITS | Encounter Summary ---
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 [...] coupled with a left breast ultrasound at [facility] on 02/11/2005. A suspicious-appearing grouping of innumerable [...] subsequently seen by Dr.Ted Rutherford at the [facility] on 02/15/2005. His physical exam at that [...] node biopsy under Dr. Rutherford' care at [facility] on 03/02/2005. Subsequent histopathology revealed poorly differentiated [...] once again, under Dr. Rutherford's care at [facility] on 03/10/2005. Subsequent histopathology revealed negative surgical resection margins and no significant residual malignancy was present either from the posterior or inferior medial margins. She has had an uneventful postoperative recovery and comes to the [facility] in followup todayto meet with both radiation [...] toget my chemotherapy here or over at [facility] which would definitely be closer...I know I [...] products. NKMA. SOCIAL HISTORY: , lives in [place]. 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 She has about two drinks per month and has never smoked. FAMILY HISTORY: Antonia has a sister who was diagnosed with breast cancer at around age 39 and is currently alive and well at age 43; My sister [facility]diagn[facility] so that's why we have artie little [...] form. OBJECTIVE: Weight 167 pounds, height 5' 9-12 . BP 110/80, pulse 88, RR 16, [...] with sentinel lymph node biopsy, ER and MO negative and HER-2/cynthia negative as well. She [...] an excellent candidate for participation in CALGB 63847 which looks at the use of either dose-dense AC versus Taxol or either two or three monthsduration in node-negative high-risk breast cancer. Outside of this clinical trial, I would probablyrecommend AC for four cycles administered either every three weeks or more likely every two weeks in dose- dense fashion with Neulasta growth factor support. Since she is both ER and MO negative, I would not recommend any adjuvant [...] PLAN: 1. I spent 75 minutes in vsjt-sq-iaas contact with Antonia and her today with [...] and radiation therapy, a catalog from the [employer] about wigs and scarves regarding [...] have therapy and further care done at [facility] [place] [facility] in [facility] as staffed by [facility], I would be happy to arrange for suchconsultation to occur. Signed by Valentina Farooq MD 04/05/2005 08:31 Koby Farooq MDHematology / Oncology Attendingdevika Farooq MD Valentina Farooq MD Hematology / Oncology Attending - Valentina Farooq MD A - BC Job ID: [id number] Document ID: [id number] cc: MD Marissa Cline MD Ted A James, MD Timothy Tanner, MD documented in this encounter Care Teams Hedis Analyst Relationship Specialty Start Date End Date Unknown, Provider, PCP - General 07/26/08 06/16/12 documented as of this encounter
--- OUTSIDE RECORDS SUMMARY | 2024-03-07 09:24 | XMS_ITS | Encounter Summary ---
Author Organization [facility] Address [address] [place] [address] Care Team Providers Care Supervisor Epoxy Fabrication Name Role Phone Marlon Levine MD Primary Care Provider [phone] Encounter Details Date Type Department Care Team (Latest Contact Info) Description 11/16/2015 8:55 EDT - 11/16/2015 23:59 EDT Hospital Encounter [address] [address] Unknown, Provider, MD Discharge Disposition: Home or [...] Code Departure Means Destination Home or Self Detention documented in this encounter Plan of Treatment Not on file documented as of this encounter Visit Diagnoses Not on filedocumented in this encounter Care Teams Supervisor Epoxy Fabrication Relationship Specialty Start Date End Date Marlon Levine MD [address] [place] [address] PCP - General 06/17/12 documented as of this encounter
--- OUTSIDE RECORDS SUMMARY | 2024-03-07 09:24 | XMS_ITS | Encounter Summary ---
Author Organization [facility] Address [address] [place] [address] Care Team Providers Care Retail Attendant Name Role Phone Unknown, Provider Primary Care Provider Unabari ilable Encounter Details Date Type Department Care Team (Late st Contact Info) Description 04/25/2006 Results Only [facility] - [facility] conversion [address] [place] [address] Todd Dominguez, DO [address] [facility] DONNA MOYER [address] [place] [id number] Social History Tobacco Use Types Packs/Day Years [...] ? BILLIE LANCE ? Accession #: ? [id number] ? : ? 1970 (Age: 35) ??F [...] [facility] 04/25/2006 04/26/2006 8:3 2 EST us Todd Dominguez DO PATHOLOGY ORDERABLES Fi nal Result [facility] [address] [place] [address] documented in this encounter Visit Diagnoses Not on filedocumented in this encounter Care Teams Retail Attendant Relationship Specialty Start Date End Date Unknown, Provider, PCP - General 07/26/08 06/16/12 documented as of this encounter
--- OUTSIDE RECORDS SUMMARY | 2024-03-07 09:24 | XMS_ITS | Encounter Summary ---
Author Organization [facility] Address [address] [place] [address] Care Team Providers Care Business Objects Developer Name Role Phone Marlon Levine MD Primary Care Provider [phone] Encounter Details Date Type Department Care Team (Late st Contact Info) Description 10/13/2015 Results Only [facility] [phone] Mary Alice Ruby MD [address] [place] [address] [address] [address] Social History Tobacco Use Types Packs/Day Years [...] ? BILLIE JENNINGS ? Accession #: ? [id number] ? : ? 1970 (Age: 45) ??F [...] intraepithelial lesion (LSIL). EDUCATIONAL NOTES/RECOMMENDATI ONS ? [facility] recommends following ASCCP's 2012 Updated Consensus Guidelines [...] 33,35,39,45,51,52, 56,58,59,66, and 68 is detected by field recorder mediated amplification. High and intermediate risk HPV [...] confirmed the above diagnosis. End of Report [facility] 10/13/2015 10/14/2015 us Mary Alice Ruby MD PATHOLOGY ORDERABLES Final Resu lt [facility] [address] [place] [address] documented in this encounter Visit Diagnoses Not on filedocumented in this encounter Care Teams Business Objects Developer Relationship Specialty Start Date End Date Marlon Levine MD [address] [place] [address] PCP - General 06/17/12 documented as of this encounter
--- OUTSIDE RECORDS SUMMARY | 2024-03-07 09:24 | XMS_ITS | Encounter Summary ---
Author [facility] [place] [address] Care Team Providers Care Colors Custodian Name Role Phone Unavailable Primary Care [...]
--- OUTSIDE RECORDS SUMMARY | 2024-03-07 09:24 | XMS_ITS | Encounter Summary ---
Author Organization [facility] Address [address] [place] [address] Care Team Providers Care Valve Seater Operator Name Role Phone Marlon Levine MD Primary Care Provider [phone] Encounter Details Date Type Department Care Team (Late st Contact Info) Description 01/06/2020 Lab Requisition [facility] Pathology & Laboratory Medicine - [facility] [address] [place] [address] Mauro Garcia MD [address] [place] [id number] Encounter for other general examination Social History [...] types, PCR Negative Negative 01/14/2020 15:15 EDT [facility] Comment:No E6 or E7 mRNA is detected from HPV types 16,18,31,33,35,39,45,51,52,56,58,59,66, and 68 by coal mine inspector mediated amplification. Papanicolaou smear specimen (specimen) CERVIX UTERI STRUCTURE / Unknown 01/03/2020 13:45 EDT 01/13/2020 11:17 EDT us Mauro Garcia MD MICROBIOLOGY - GENERAL ORDERABLE S Final Result [facility] [address] [place] [address] * PAP TEST (01/03/2020 13:45 EDT) Specimens A. Cervix and/or Endocervix , ThinPrep Imaging System with Manual Evaluation 01/14/2020 15:15 [facility] Specimen Adequacy Satisfactory for Evaluation - transformation zone component present 01/14/2020 15:15 [facility] General Categorization Negative for intraepithelial lesion or malignancy 01/14/2020 15:15 [facility] Attestation . 01/14/2020 15:15 [facility] at 1515 Clinical History See below 01/14/20 15:15 [facility] HPV The result for the Human Papillomavirus (HPV) Detection-High Risk Types is Negative. No E6 or E7 mRNA is detected from HPV types 16,18,31,33,35,39 ,45,51,52,56,58,5 9,66, and 68 by coal mine inspector mediated amplification.Clarissa ting was performed on specimen [id number] and was resulted on 01/14/2020 1507 EDT by MITCHEL, LAB INSTRUMENT RESULTS IN 01/14/2020 15:15 T [facility] Performing Lab [facility] 01/14/2020 15:15 EDT [facility] Scanned Images 01/14/2020 15:15 EDT [facility] Papanicolaou smear specimen (specimen) CERVIX UTERI STRUCTURE / Unknown 01/03/2020 13:45 EDT 01/06/2020 11:03 EDT us Mauro Garcia MD PATHOLOGY ORDERABLES Final Resul t [facility] [address] [place] [address] documented in this encounter Visit Diagnoses Diagnosis Encounter for other general examination documented in this encounter Care Teams Valve Seater Operator Relationship Specialty Start Date End Date Marlon Levine MD [address] [place] [address] PCP - General 06/17/12 documented as of this encounter
--- OUTSIDE RECORDS SUMMARY | 2024-03-07 09:24 | XMS_ITS | Encounter Summary ---
Author Organization [facility] Address [address] [place] [address] Care Team Providers Care Pockets And Pieces Necktie Operator Name Role Phone Marlon Levine MD Primary Care Provider [phone] Encounter Details Date Type Department Care Team (Latest Contact Info) Description 01/19/2018 14:57 EDT - 01/19/2018 23:59 EDT Hospital Encounter [address] [address] Unknown, Provider, MD Discharge Disposition: Home or [...] Code Departure Means Destination Home or Self Mcfp documented in this encounter Plan of Treatment Not on file documented as of this encounter Visit Diagnoses Not on filedocumented in this encounter Care Teams Pockets And Pieces Necktie Operator Relationship Specialty Start Date End Date Marlon Levine MD [address] [place] [address] PCP - General 06/17/12 documented as of this encounter
--- OUTSIDE RECORDS SUMMARY | 2024-03-07 09:24 | XMS_ITS | Encounter Summary ---
Author Organization [facility] Address [facility] [place] [address] Care Team Providers Care Newspaper Editor Name Role Phone Marlon Levine MD Primary Care Provider [phone] Encounter Details Date Type Department Care Team (Late st Contact Info) Description 10/30/2008 Orders [place] [address] Margarita Joe MD [facility] [place] [address] Social History Tobacco Use Types Packs/Day Years [...] 10:50 AM EDT) Surgical Pathology Report [id number] ? Location: 3WST; 0301; A The signing [...] tissue from slice at deep margin; (14) c s s representative fibrous tissue from outer lower quadrant; (15) c s s representative fibrous tissue from lower inner quadrant; (16) c s s representative fibrous tissue from upper inner quadrant. [...] quadrant; (9) lower inner quadrant. ?? (R9) ??[facility] Microscopic Description Slides reviewed, microscopic description not recorded. Diagnosis Specimen: ? A - Breast, right, skin-sparing mastectomy Specimen Size: ?17.0 x 14.0 x 2.5 cm Residual malignancy: ?Absent Prior Bx's correlation: [id number], partial mastectomy ?[id number], axillary lymph nodes Other findings: ? Fibrocystic [...] on filedocumented in this encounter Care Teams Newspaper Editor Relationship Specialty Start Date End Date Marlon Levine MD [address] [place] [address] PCP - General 06/20/12 documented as of this encounter
--- OUTSIDE RECORDS SUMMARY | 2024-03-07 09:24 | XMS_ITS | Encounter Summary ---
Author Organization [facility] Address [address] [place] [address] Care Team Providers Care Child Care Director Name Role Phone Unknown, Provider Primary Care Provider Sarah romano Encounter Details Date Type Department Care Team (Late st Contact Info) Description 07/26/2008 Office Visit [facility] [address] [place] [address] Maj Miguel MD [address] [place] [phone] Social History Tobacco Use Types Packs/Day [...] aspiration of fluid 5 weeks ago at [facility]. Last night had temp of 100.2. Feels [...] Discussed case with physician . oncology at [facility], Dr. Bernal. Reviewed test results. 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 Pt discharged on Keflex 500mg QID x 7 days. Pt is on chemo for breast cancer, no neutropenia. No LMD listed on lab form. signed by Luz Wheatley R.N., [facility] - 07/29/2008 11:52) Department - Nursing Summary Registration Date/Time: 07/26/2008 8:33 TRIAGE Initial Assessment Triage time 08:34. Acuity: LEVEL 3. BP: 154 / 81. HR: 114. RR: 17. Temp: 36.4 C (tympanic). Alert. No acute distress. --837 Yohana De Paz R.N.. Medications (Cyclophosphamide 100mg BID). Prochlorperazine: 5mg four times a day, as needed. --837 Yohana Bark, R.N.. Allergies AZITHROMYCIN. --837 Yohana De Paz R.N.. History Chief Complaint: FEVER. This started yesterday. Pain level now: 8/10. Reports fatigue. The patient has had a headache. Treatment STULL HEWER: None. PAST HX: Breast cancer. SOCIAL HX: [...] position. Brakes of bed on. --0932 Zenon MondragonM.TWendy (Prior note made by this RN.). --0934 [...] limits. Patient transported to radiology by stretcher. --0969 Joyce Fragoso R.N. (Critical Value Per Lab: PTT 112). --1008 Zenon HansenM.TWendy (U/S at bedside for study.). --1033 Joyce Fragoso R.N. (Pt resting quietly, nad. Supportive clinical research nurse coordinator at bedside. Pt reports pain unchanged but would liketo wait and see if area will be drained- as that usually relieves discomfort.). --1118 Joyce Fragoso R.N. Clean catch urine collected with return of yellow-colored clear urine; odor is normal (SG - 1.015, pH - 7.0, URO - 1.0, WILLIAM - Trace, all else negative). --1141 Zenon LipscombMWendyTWendy (culture and gram stain of right axillary seroma sent to lab, specimen obtained by residential program director). --1239 Laurel Huerta R.N. BP: 129 / 63 right leg. HR: 94. RR: 16. Temp: 98.9 oral. The patient is resting quietly. --1244 Yvan Sy BP: 125/ 60. HR: 101. RR: 16. [...] discard and drawn- sent to lab). --0933 Terrance Patel EWendyM.TWendy (Mediport accessed and blood draw by this [...] 5 mL (100 units / mL) heparin. --4497 Joyce Fragoso R.N.. DISPOSITION / DISCHARGE Condition [...] Patient verbalized understanding. Written instructions provided in Yakut. (Port flushed with 10 cc NS then 2.5 cc Heparin (100 units/mL) and de- accessed.). The patient was discharged home and accompanied by clinical research nurse coordinator. The patient left the Emergency Department ambulatory and via private vehicle. Aerospace Engineer Officer Armament driving. --1531 Kathy Greenfield R.N. Fall risk assessment completed. No fall risk identified. --153 Kathy Greenfield R.N.. Zenon Amaya R.N.M.TZenon Horton R.N.MWalt YarbroughMYvan Trujillo R.N. Locked/Released at 07/27/2008 8:41 by Laurel Huerta R.N. documented in this encounter Plan of Treatment Not on file documented as of this encounter Visit Diagnoses Not on filedocumented in this encounter Care Teams Child Care Director Relationship Specialty Start Date End Date Unknown, Provider, PCP - General 07/26/08 06/16/12 documented as of this encounter
--- OUTSIDE RECORDS SUMMARY | 2024-03-07 09:24 | XMS_ITS | Encounter Summary ---
Author Organization [facility] Address [address] [place] [address] Care Team Providers Care Cupola Melter Name Role Phone Unavailable Primary Care Provider Unavailabl e Encounter Details Date Type Department Care Team (Latest Contact Info) Description 04/07/2004 12:26 EST Hospital Encounter [facility] - Other [address] [place] [address] Olegario Mcconnell MD Discharge Disposition: Auto Discharge [...] joints are unremarkable. dw Olegario CRUZ DIAGNOSTIC IMAGING O RDERABLES Final Result * SCOLI 1 VIEW (04/07/2004 11:59 EST) Anatomical Region Laterality Modality Other 04/07/2004 11:5 9 EST Narrative 11/28/2008 17:11 EDT SCOLIOSIS, LBP. R/O DDD. ??ASSESS SCOLIOSIS. Procedure Note Maria Elena Khan MD - 11/28/2008 SCOLIOSIS, LBP. R/O DDD. ASSESS SCOLIOSIS. Olegario CRUZ DIAGNOSTIC IMAGING O RDERABLES Final Result documented in this encounter Visit Diagnoses Not on filedocumented in this encounter
--- OUTSIDE RECORDS SUMMARY | 2024-03-07 09:24 | XMS_ITS | Encounter Summary ---
Author Organization [facility] Address [address] [place] [address] Care Team Providers Care Informaticist Name Role Phone Unavailable Primary Care Provider Unavailabl e Encounter Details Date Type Department Care Team (Late st Contact Info) Description 02/24/2005 17:12 EST Hospital Encounter [address] [address] Marissa Garay MD PhD [address] [place] [address], [address] [place] [id number] Social History Tobacco Use Types Packs/Day Years [...]
--- OUTSIDE RECORDS SUMMARY | 2024-03-07 09:24 | XMS_ITS | Encounter Summary ---
Author Organization [facility] [place] [address] Care Team Providers Care Digital Editor Name Role Phone Marlon Levine MD Primary Care Provider [phone] Encounter Details Date Type Department Care Team (Late st Contact Info) Description 01/23/2008 Orders [place] [address] Margarita Joe MD [facility] [place] [address] Social History Tobacco Use Types Packs/Day Years [...] 5:21 PM EDT) Surgical Pathology Report [id number] ? Location: [facility] The signing pathologist has (i) examined [...] FISH. ??Direct analysis was performed using the Talentag Kit. ??Slide adequacy and signal enumeration were [...] paraffin-embedded tissue sections are studied using the Diplopia-AdKeeper system technique with appropriate positive and negative controls. Block ? Antibody ?Result (Positive/Negative) A4 ? e-cadherin ? Positive in tumor. These immunohistochemical studies provide ancillary information and are used only in conjunction with standard diagnostic procedures. Diagnosis Specimen (s): ? 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 Tubular Differentiation: ? [...] ? NA Correlation Biopsies/Cytology ?? Needle bx -[id number], 08/07/07. . Diagnosis ?2006-left breast excision S--146. Other findings: ? NA Estrogen/Progestin receptors: ?? Performed on block A4 ?? ER immunoreactivity: ? Negative (see Diagnostic del toro*) ?? MI immunoreactivity: ? Negative (see Diagnostic del toro*) [...] MENDEL AVERY 01/23/2008 5:21 PM EDT Margarita oJe MD PATHOLOGY/CYTOLOGY ORDERABLES Performing Organization Address City/State/[facility] Co de Phone Number [facility] documented in this encounter Visit Diagnoses Not on filedocumented in this encounter Care Teams Digital Editor Relationship Specialty Start Date End Date Marlon Levine MD [address] [place] [address] PCP - General 06/20/12 documented as of this encounter
--- OUTSIDE RECORDS SUMMARY | 2024-03-07 09:24 | XMS_ITS | Encounter Summary ---
Author Organization [facility] Address [address] [place] [address] Care Team Providers Care Chief Procurement Officer Name Role Phone Marlon Levine MD Primary Care Provider [phone] Encounter Details Date Type Department Care Team (Late st Contact Info) Description 01/05/2016 Results Only [facility] [phone] Mary Alice Ruby MD [address] [place] [address] [address] [place] [address] Social History Tobacco Use Types Packs/Day Years [...] ? BILLIE JENNINGS ? Accession #: ? [id number] ? : ? 1970 (Age: 45) ??F [...] (ASCP) 01/06/2016 11:37 AM End of Report [facility] 01/05/2016 10:1 3 EDT 01/06/2016 10:13 EDT us Mary Alice Ruby MD PATHOLOGY ORDERABLES Final Resu lt [facility] [address] [place] [address] documented in this encounter Visit Diagnoses Not on filedocumented in this encounter Care Teams Chief Procurement Officer Relationship Specialty Start Date End Date Marlon Levine MD [address] [place] [address] PCP - General 06/17/12 documented as of this encounter
--- OUTSIDE RECORDS SUMMARY | 2024-03-07 09:24 | XMS_ITS | Encounter Summary ---
Author Organization [facility] Address [address] [place] [address] Care Team Providers Care Customer Relations Consultant Name Role Phone Marlon Levine MD Primary Care Provider [phone] Encounter Details Date Type Department Care Team (Late st Contact Info) Description 03/02/2018 Results Only [facility] [phone] Svetlana Cavanaugh MD [address] [place] [address] Social History Tobacco Use Types [...] ? BILLIE JENNINGS ? Accession #: ? [id number] ? : ? 1970 (Age: 47) ??F ? Collect Date: ? 03/02/2018 ? Location: ? [facility] ? Receive Date: ? 03/02/2018 ? Provider: SVETLANA CAVANAUGH MD Copy to: [employer] EMPLOYEE RELATIONS REPRESENTATIVE ? Final Pathologic Diagnosis: ENDOCERVIX, CURETTAGE: - [...] History: 01/19/18 Pap ASCUS (-) HPV; LMP: 2013 Gross Description: ? Received in formalin labelled with proper patient identification (initials D, P) and endocervical curettage is an aggregate of scant tomas-brown tissue fragments and predominantly mucoid material (0.3 x 0.6 x 0.6 cm). Tissue may not survive processing. Submitted in toto in 1. Dr. Hercules 03/03/2018 10:00 AM End of Report [facility] 03/02/2018 16:4 6 EST 03/02/2018 16:46 EST us Svetlana Cavanaugh MD PATHOLOGY ORDERABLES Final Resul t [facility] [address] [place] [address] documented in this encounter Visit Diagnoses Not on filedocumented in this encounter Care Teams Customer Relations Consultant Relationship Specialty Start Date End Date Marlon Levine MD [address] [place] [address] PCP - General 06/17/12 documented as of this encounter
--- OUTSIDE RECORDS SUMMARY | 2024-03-07 09:24 | XMS_ITS | Encounter Summary ---
Author Organization [facility] Address [address] [place] [address] Care Team Providers Care Production Support Manager Name Role Phone Unavailable Primary Care Provider Unavailabl e Encounter Details Date Type Department Care Team (Late st Contact Info) Description 02/15/2005 15:44 EST Hospital [place] [facility] [address] [place] [address] Marlon Levine MD [address] [place], [place] [address] Deep Rutherford MD MSc [address] [place] [address] Discharge Disposition: Auto Discharge Social [...] 2. Scoliosis. D 02/15/05 T 02/16/05 /sarah us Deep Rutherford MD MSc [facility] DIAGNOSTIC IMAGING ORDERA BLES Final Result documented in this encounter Visit Diagnoses Not on filedocumented in this encounter
--- OUTSIDE RECORDS SUMMARY | 2024-03-07 09:24 | XMS_ITS | Encounter Summary ---
Author Organization [facility] [place] [address] Care Team Providers Care Manager Marketing Communication Name Role Phone Marlon Levine MD Primary Care Provider [phone] Encounter Details Date Type Department Care Team (Late st Contact Info) Description 02/06/2008 Orders Only [place] [address] Margarita Joe MD [facility] DR GENERAL SURGERY [place] [phone] Social History Tobacco Use Types Packs/Day Years [...] 2:31 PM EST) Surgical Pathology Report [id number] ? Location: [facility] The signing pathologist has (i) examined [...] were performed . Microscopic Description using the Sendmybag GeneSearch ? Breast Lymph Node test. The sentinel lymph node and tested for the expression of mammoglobin, CK19 and PBGD using gene specific primers for amplification and probes for detection on the eNovance Smartcycler. Interpretation: ??Positive expression of the mammoglobin [...] Joe MD PATHOLOGY/CYTOLOGY ORDERABLES Performing Organization Address City/State/[facility] Co nv Phone Number [facility] documented in this encounter Visit Diagnoses Not on filedocumented in this encounter Care Teams Manager Marketing Communication Relationship Specialty Start Date End Date Marlon Levine MD [address] [place] [address] PCP - General 06/20/12 documented as of this encounter
--- OUTSIDE RECORDS SUMMARY | 2024-03-07 09:24 | XMS_ITS | Encounter Summary ---
Author Organization [facility] Address [address] [place] [address] Care Team Providers Care Ramp Manager Name Role Phone Marlon Levine MD Primary Care Provider [phone] Encounter Details Date Type Department Care Team (Late st Contact Info) Description 11/16/2015 Results Only [facility] [phone] Mary Alice Ruby MD [address] [place] [address] [address] [place] [address] Social History Tobacco Use Types Packs/Day Years [...] ? BILLIE JENNINGS ? Accession #: ? [id number] ? : ? 1970 (Age: 45) ??F [...] in toto in C1 following filtration. Aiden Bobby 11/17/2015 10:42 AM End of Report [facility] 11/16/2015 8:48 EDT 11/17/2015 8:48 EDT us Mary Alice Ruby MD PATHOLOGY ORDERABLES Final Resu lt [facility] [address] [place] [address] documented in this encounter Visit Diagnoses Not on filedocumented in this encounter Care Teams Ramp Manager Relationship Specialty Start Date End Date Marlon Levine MD [address] [place] [address] PCP - General 06/17/12 documented as of this encounter
--- OUTSIDE RECORDS SUMMARY | 2024-03-07 09:24 | XMS_ITS | Encounter Summary ---
Author Organization [facility] Address [address] [place] [address] Care Team Providers Care Customer Engineer Name Role Phone Unknown, Provider Primary Care Provider Sarah manzanoable Encounter Details Date Type Department Care Team (Late st Contact Info) Description 07/26/2008 8:33 EDT - 07/26/2008 15:32 EDT Emergency [facility] Emergency Department - [address] [address] Emergency, Default, MD Discharge Disposition: Home or [...] TO LAB Result Mod STREPTOCOCCUS, ALPHA HEMOLYTIC [facility] Report Status Final 07/28/2008 [facility] 07/26/2008 13:0 4 EDT 07/26/2008 13:04 EDT us Default Emergency MD MICROBIOLOGY - GENERAL MERT BROWER Final Result [facility] [address] [place] [address] * UA REFLEX (07/26/2008 11:50 EDT) UA Billing Microscopic not indicated. [facility] 07/26/2008 11:5 0 EDT 07/26/2008 13:18 EDT us Default Emergency MD URINALYSIS ORDERABLES Final Result Performing Organization Address [facility] Co de Phone Number [facility] [address] [place] [address] * (ABNORMAL) URINALYSIS, CHEMICAL (07/26/2008 11:50 EDT) Color, UA Yellow [facility] Clarity, UA Hazy [facility] Glucose, UA Norm NORM [facility] Bilirubin, UA Neg NEG [facility] Ketones, UA Neg NEG [facility] Specific Jay, Urine 1.015 1.005 - 1.02 [facility] Blood, UA Neg NEG [facility] pH, UA 7.0 5.0 - 9.0 [facility] Protein, UA Neg NEG [facility] Urobilinogen, Urine 1.0(A) NORM mg/dL [facility] Nitrite, UA Neg NEG [facility] Leuk Esterase Neg NEG FLETCH [facility] 07/26/2008 11:5 0 EDT 07/26/2008 13:18 EDT us Default Emergency MD URINALYSIS ORDERABLES Final Result Performing Organization Address [facility] de Phone Number [facility] [address] [place] [address] * CULTURE IF UA POSITIVE (07/26/2008 11:50 EDT) Culture if Indicated Culture not indicated by urinalysis results. [facility] 07/26/2008 11:5 0 EDT 07/26/2008 13:18 EDT us Default Emergency MD MICROBIOLOGY - GENERAL MERT BROWER Final Result Performing Organization Address [facility] Co de Phone Number [facility] [address] [place] [address] * RAD US DOPPLER UPPER EXTREMITY VENOUS [...] agree with the findings. Maj Lamont CROSS [place] US ORDERABLES Final Result * CHEST PA AND LATERAL (07/26/2008 9:42 [...] effusion. No infiltrative lung change. Maj Lamont [facility] DIAGNOSTIC IMAGING ORDERABLE S Final Result * (ABNORMAL) PTT (07/26/2008 9:32 EDT) PTT 112(HH) 20 - 35 secs [facility] Comment: Therapeutic Heparin range: ?? 60-100 seconds Sample retested, result confirmed Blood specimen (specimen) 07/26/2008 9:32 EDT 07/26/2008 9:32 EDT Default Emergency MD HEMATOLOGY & PF4 ORDERABLES Final Result Performing Organization Address [facility] Co de Phone Number [facility] [address] [place] [address] * (ABNORMAL) PROTIME (07/26/2008 9:32 EDT) Pro Time 15.2(H) 12.0 - 15.0 secs [facility] I.N.R. 1.2(H) 0.9 - 1.1 Ratio [facility] Comment: Moderate Intensity Coumadin INR = 2.0-3.0 Adjustments in anticoagulant therapy dose should be based upon the INR and NOT the Pro Time. Blood specimen (specimen) 07/26/2008 9:32 EDT 07/26/2008 9:32 EDT Default Emergency MD HEMATOLOGY & PF4 ORDERABLES Final Result Performing Organization Address [facility] de Phone Number [facility] [address] [place] [address] * (ABNORMAL) LIVER FUNCTION TESTS (07/26/2008 9:32 EDT) Albumin 4.0 3.4 - 4.9 g/dl [facility] Total Protein 6.1(L) 6.5 - 8.3 g/dl [facility] Alkaline Phosphatase 82 38 - 126 U/L [facility] ALT 12 9 - 52 U/L [facility] AST 16 15 - 46 U/L [facility] Unconjugated Bilirubin 1.6(H) 0.1 - 1.1 mg/dl [facility] Conjugated Bilirubin 0.0 0.0 - 0.3 mg/dl [facility] Bilirubin, Total 1.4(H) 0.2 - 1.3 mg/dl [facility] Blood specimen (specimen) 07/26/2008 9:32 EDT 07/26/2008 9:32 EDT us Default Emergency MD CHEMISTRY & BLOOD GAS ORDER KARMA Final Result Performing Organization Address [facility] Co de Phone Number [facility] [address] [place] [address] * (ABNORMAL) SCREENING GLUCOSE (07/26/2008 9:32 EDT) Glucose, Screening 105(H) 70 - 100 mg/dl [facility] Blood specimen (specimen) 07/26/2008 9:32 EDT 07/26/2008 9:32 EDT us Default Emergency MD CHEMISTRY & BLOOD GAS ORDER KARMA Final Result Performing Organization Address [facility] de Phone Number [facility] [address] [place] [address] * (ABNORMAL) CREATININE (07/26/2008 9:32 EDT) Creatinine 0.60(L) 0.7 - 1.5 mg/dl [facility] GFR, Calculated >60 ml/min/1.7 3m2 [facility] Blood specimen (specimen) 07/26/2008 9:32 EDT 07/26/2008 9:32 EDT us Default Emergency MD CHEMISTRY & BLOOD GAS ORDER KARMA Final Result Performing Organization Address [facility] de Phone Number [facility] [address] [place] [address] * BUN (07/26/2008 9:32 EDT) BUN 13 10 - 26 mg/dl [facility] Blood specimen (specimen) 07/26/2008 9:32 EDT 07/26/2008 9:32 EDT us Default Emergency MD CHEMISTRY & BLOOD GAS ORDER KARMA Final Result Performing Organization Address [facility] Co de Phone Number [facility] [address] [place] [address] * (ABNORMAL) ELECTROLYTES (07/26/2008 9:32 EDT) Sodium 135(L) 136 - 145 mEq/L [facility] Potassium 3.8 3.5 - 5.0 mEq/L [facility] Chloride 102 96 - 110 mEq/L [facility] CO2 27 24 - 32 mEq/L [facility] Blood specimen (specimen) 07/26/2008 9:32 EDT 07/26/2008 9:32 EDT us Default Emergency MD CHEMISTRY & BLOOD GAS ORDER KARMA Final Result [facility] [address] [place] [address] * (ABNORMAL) HEMAGRAM AND DIFFERENTIAL (07/26/2008 9:32 EDT) Pathologist [facility] WBC 7.32 4.0 - 12.4 K/cmm [facility] RBC 2.82(L) 3.86 - 5.04 M/cmm [facility] Hemoglobin 10.1(L) 11.6 - 15.2 gm/dl [facility] HCT 28.7(L) 34.9 - 44.4 % [facility] MCV 102(H) 81 - 98 fl [facility] MCH 36.0(H) 26.7 - 33.3 pg [facility] MCHC 35.4 32.1 - 35.9 gm/dl [facility] PLT 147 141 - 320 K/cmm [facility] RDW-CV 16.0(H) 11.7 - 14.6 % [facility] Neutrophils 92.4(H) 45.5 - 79.7 % [facility] Lymphocytes 2.4(L) 15.0 - 46.8 % [facility] Monocytes 4.3 1.8 - 12.0 % [facility] Eosinophils 0.8 0.6 - 6.9 % [facility] Basophils 0.1(L) 0.2 - 1.4 % [facility] ABS Neutrophils 6.77 2.20 - 8.85 K/cmm [facility] ABS Lymphs 0.17(L) 1.09 - 3.30 K/cmm [facility] ABS Monocytes 0.31 0.1 - 0.8 K/cmm [facility] ABS Eosinophils 0.06 0.03 - 0.61 K/cmm [facility] ABS Basophils 0.01 0.01 - 0.11 K/cmm [facility] Type of Diff: Automated F[facility] Blood specimen (specimen) 07/26/2008 9:32 EDT 07/26/2008 9:32 EDT us Default Emergency MD PACKAGES & DNA PROBE ORDERA BLES Final Result Performing Organization Address [facility] Co de Phone Number [facility] [address] [place] [address] * BACTERIAL CULTURE, BLOOD (07/26/2008 9:25 EDT) Specimen Description Blood Draw site not indicated. [facility] Result No growth [facility] Report Status Final [id number] [facility] Blood specimen (specimen) 07/26/2008 9:25 EDT 07/26/2008 11:03 EDT us Default Emergency MICROBIOLOGY - GENERAL ORDE RABCIELO Final Result Performing Organization Address [facility] Co de Phone Number [facility] [address] [place] [address] * BACTERIAL CULTURE, BLOOD (07/26/2008 9:05 EDT) Specimen Description Blood Draw site not indicated. [facility] Result No growth [facility] Report Status Final [id number] [facility] Blood specimen (specimen) 07/26/2008 9:05 EDT 07/26/2008 11:02 EDT us Default Emergency MICROBIOLOGY - GENERAL ORDE RABCIELO Final Result Performing Organization Address [facility] Co de Phone Number [facility] [address] [place] [address] documented in this encounter Visit Diagnoses Not on filedocumented in this encounter Care Teams Customer Engineer Relationship Specialty Start Date End Date Unknown, Provider, PCP - General 07/26/08 06/16/12 documented as of this encounter
--- OUTSIDE RECORDS SUMMARY | 2024-03-07 09:24 | XMS_ITS | Encounter Summary ---
Author Organization [facility] Address [facility] [place] [address] Care Team Providers Care Senior Product Integrity Engineer Name Role Phone Marlon Levine MD Primary Care Provider [phone] Encounter Details Date Type Department Care Team (Late st Contact Info) Description 08/07/2007 [place] [address] Leonel Dickerson MD [facility] [place] [address] Social History Tobacco Use Types Packs/Day Years [...] 1:01 PM EDT) Surgical Pathology Report [id number] ? Location: 3K The signing pathologist has [...] filedocumented in this encounter Care Teams Senior Product Integrity Engineer Relationship Specialty Start Date End Date Marlon Levine MD [address] [place] [address] PCP - General 06/20/12 documented as of this encounter
--- OUTSIDE RECORDS SUMMARY | 2024-03-07 09:24 | XMS_ITS | Encounter Summary ---
Author Organization [facility] Address [address] [place] [address] Care Team Providers Care Quality Reviewer Name Role Phone Unavailable Primary Care Provider Unavailabl e Encounter Details Date Type Department Care Team (Late st Contact Info) Description 03/10/2005 7:09 EST - 03/10/2005 11:59 EST Hospital Encounter [facility] Perioperative Services- [facility] [address] [place] [address] Deep Rutherford MD [address] [address] Discharge Disposition: Home or Self Care Social [...] PROCEDURE REPORT PT TYPE: OPPROC PT LOC: [id number] SERVICE DATE: 03/10/2005 SURGEON: Deep Rutherford MD TAPER PRINTED CIRCUIT LAYOUT: n/a PREOPERATIVE DIAGNOSIS: Left breast invasive ductal [...] Signed by Deep Rutherford MD 03/11/2005 14:14 Timoteo Foster MDTed A James, MD Deep Rutherford MD - Deep Rutherford MD A - CK Job ID: [id number] Document ID: [id number] cc: Deep Rutherford MD Cancer Data Registry Marlon Levine MD [address] [place] [address] \* MERGEFORMAT Deep Rutherford MD A - ck Job ID: [id number] Document ID: [id number] cc: Deep Rutherford MD Cancer Data Registry Marlon Levine MD documented in this encounter Plan of Treatment Not on file documented as of this encounter Visit Diagnoses Not on filedocumented in this encounter
--- OUTSIDE RECORDS SUMMARY | 2024-03-07 09:24 | XMS_ITS | Encounter Summary ---
Author Organization [facility] Address [address] [place] [address] Care Team Providers Care Industrial Machine Assembler Name Role Phone Marlon Levine MD Primary Care Provider [phone] Encounter Details Date Type Department Care Team (Late st Contact Info) Description 10/25/2019 Lab Requisition [facility] Pathology & Laboratory Medicine - [facility] [address] [place] [address] Outr Resulting Lab, Provider Social History Tobacco [...] 6.3 - 8.2 g/dL 10/28/2019 12:23 EDT [facility] Albumin % 65.3 55.8 - 66.1 % 10/28/2019 12:23 EDT [facility] Alpha-1 % 5.3(H) 2.9 - 4.9 % 10/28/2019 12:23 EDT [facility] Alpha-2 % 9.4 7.1 - 11.8 % 10/28/2019 12:23 EDT [facility] Beta % 10.5 8.4 - 13.1 % 10/28/2019 12:23 EDT [facility] Gamma % 9.5(L) 11.1 - 18.8 % 10/28/2019 12:23 EDT [facility] SPEP Comment No apparent monoclonal protein seen on serum electrophoresis 10/28/2019 12:23 T [facility] Comment:See scanned/suppleme ntary report. Blood VENOUS BLOOD / Unknown 10/25/2019 12:21 EDT 10/25/2019 21:20 EDT us Provider Outr Resulting Lab CHEMISTRY & BLOOD GA S ORDERABLES Final Result [facility] [address] [place] [address] documented in this encounter Visit Diagnoses Not on filedocumented in this encounter Care Teams Industrial Machine Assembler Relationship Specialty Start Date End Date Marlon Levine MD [address] [place] [phone] PCP - General 06/17/12 documented as of this encounter
--- OUTSIDE RECORDS SUMMARY | 2024-03-07 09:24 | XMS_ITS | Encounter Summary ---
Author Organization [facility] [place] [address] Care Team Providers Care Bottle Caser Name Role Phone Marlon Levine MD Primary Care Provider [phone] Encounter Details Date Type Department Care Team (Late st Contact Info) Description 04/01/2005 Orders Only Hematology [place] [address] Ana Lilia Grubbs MD [facility] [address] HEMATOLOGY [place] [address] Social History Tobacco Use Types Packs/Day Years [...] 9:06 AM EST) Surgical Pathology Report [id number] ? Location: The signing pathologist has (i) examined the relevant preparation(s) for the specimen(s) and (ii) rendered or confirmed the diagnosis(es). . ?Pathology Surgical Pathology Final Report Clinical Information Specimen Submitted: CONSULTATION CASE A - 2 slides labeled [id number], collection date 02/15/05. B - 86 slides labeled [id number], collection date 03/02/05. C - 84 slides labeled [id number], collection date 03/10/05. [id number] Report to: Alfred Lakhani MD [facility] Surgical Pathology [address] ??[address] Gross Description [facility] pathology slide(s) are reviewed. ??Refer to Diagnosis and Specimen Submitted for specific case information. For the full text of the [facility] report(s) please refer to Non-DH Documentation Pathology in the Clinical Information System (CIS). Microscopic Description Slides reviewed, microscopic description not recorded. Diagnosis CONSULTATION CASE A - Needle biopsies: ?Left breast. ?Diagnosis: ?Normal breast with focal lymphocytic infiltrate ?Microcalcifica tions: ??NA Specimen (s): ? B - Left breast, excision; sentinel and ? non-sentnel lymph nodes (-[id number]) ?C - Left breast, re-excision [id number]) Histologic Type: ?Infiltrating ductal carcinoma Tumor Grade: ?High (High, Intermediate, Low) Ysxoqt-Bmaug-Mlq hardson Score: ??8 ?? Tubular Differentiation: ? [...] Ca (distance, RM): ??Final margins >1.0 cm (-[facility]52922) ?? DCIS (distance, RM): ? Final margins >1.0 cm ([facility]50168) Angiolymphatic Invasion: ?Identified (-[address] [place] [address] A28) . Diagnosis Perineural Invasion: ?Not identified Nipple Involvement: ? NA Correlation Biopsies/Cytolog y ?? NA Other findings: ? Fibrocystic disese witb benign ductal ? hyperplasia, adenosis, apocrine metaplasia ?and cysts Axillary lymph nodes: Total no. of nodes sampled: ?10 ??No. of non-sentinel nodes: ?1 (Specimen(s) -04 D) ?No. positive for carcinoma: 0 (H&E only) ??No. of sentinel nodes: ?9 (Specimen(s) -[id number] C,E,F,G,H,I,J) ?No. positive for carcinoma: 0 (H&E only) Estrogen/Progest in receptors: ?? Performed on block [id number] A27 ?? ER immunoreactivity : ? Negative by report ?? PA immunoreactivity : ? Negative by report HER2/cynthia [...] Lilia Grubbs MD PATHOLOGY/CYTOLO GY ORDERABLES [facility] documented in this encounter Visit Diagnoses Not on filedocumented in this encounter Care Teams Bottle Caser Relationship Specialty Start Date End Date Marlon Levine MD [address] [place] [address] PCP - General 06/20/12 documented as of this encounter
--- OUTSIDE RECORDS SUMMARY | 2024-03-07 09:24 | XMS_ITS | Clinical Summary ---
Author Organization [facility] Address [address] [place] [address] Care Team Providers Care Restaurant Expeditor Name Role Phone Marlon Levine MD Primary Care Provider [phone] Allergies Active Allergy Reactions Criticality Noted Date [...] ??F) 06/17/2012 1605 EDT Respiratory Rate 18 06/17/20128 EDT Oxygen Saturation 98% 06/17/20121957 EDT Inhaled Oxygen Concentration - - Weight 88.5 kg (195 lb) 06/17/2012 1605 EDT Height 175.3 cm (5' 9) 06/17/2012 1605 EDT Body Mass Index 28.8 06/17/2012 1605 EDT Plan of Treatment Health Maintenance Due Date Last Done Comments Hepatitis C Screen 1970 Hepatitis B Vaccine (1 of 3 - 19+ 3-dose series) 08/29 COVID-19 Vaccine (2023- season) 2023 Insurance MEDICAID [place] Care Teams Restaurant Expeditor Relationship Specialty Start Date End Date Marlon Levine MD [address] [place] [id number] PCP - General 06/17/12
--- OUTSIDE RECORDS SUMMARY | 2024-03-07 09:24 | XMS_ITS | Encounter Summary ---
Author Organization [facility] Address [address] [place] [address] Care Team Providers Care Floorworker Name Role Phone Unknown, Provider Primary Care Provider Sarah ilable Encounter Details Date Type Department Care Team (Late st Contact Info) Description 12/11/2002 Results Only [address] [address] Cami Louis MD Social History [...] ? BILLIE STEPHENSON ? Accession #: ? [id number] : ? 1970 (Age: 32) ??F ?Collect [...] End of Report [facility] 12/11/2002 12/13/2002 us Cami Louis MD PATHOLOGY ORDERABLES Final Resul t [facility] [address] [place] [address] documented in this encounter Visit Diagnoses Not on filedocumented in this encounter Care Teams Floorworker Relationship Specialty Start Date End Date Unknown, Provider, PCP - General 07/26/08 06/16/12 documented as of this encounter
--- OUTSIDE RECORDS SUMMARY | 2024-03-07 09:24 | XMS_ITS | Encounter Summary ---
Author Organization [facility] [place] [address] Care Team Providers Care Ems Educator Name Role Phone Unavailable Primary Care Provider Unavailabl e Encounter Details Date Type Department Care Team (Late st Contact Info) Description 02/10/2010 1:30 PM EST Follow-Up [facility] [address] [facility] Melissa E, [address] [place], [place] [address] Social History Tobacco Use Types Packs/Day Years [...]
[2024-03-07 09:33] LABS: Abs Immature Grans 0.01 10^3/uL (0.0-0.06); Absolute Basophil Count 0.02 10^3/uL (0.0-0.2); Absolute Eosinophil Count 0.07 10^3/uL (0.0-0.7); Absolute Lymphocyte Count 1.16 10^3/uL (1.2-3.4); Absolute Monocyte Count 0.35 10^3/uL (0.1-0.8); Basophils % 0.5 %; Eosinophils % 1.7 %; HCT 41.7 % (36.0-46.0); Immature Grans % 0.2 %; Lymphocytes % 28.9 %; MCH 31.5 pg (27.0-33.0); MCHC 33.6 % (32.0-36.0); MCV 94 fL (80-95); MPV 9.8 fL (8.0-11.0); Monocytes % 8.7 %; Platelet Count 181 10^3/uL (130-400); RBC 4.44 10^6/uL (3.93-5.22); RDW 12.2 % (11.7-14.6); RDW-SD 42.5 fL; WBC 4.01 10^3/uL (4.4-10.8)
[2024-03-07 09:34] LABS: Absolute Neutrophil Count 2.41 10^3/uL (1.2-6.7)
[2024-03-07] MEDS: Acetaminophen 500 MG TAB 1000 MG PO (09:35)
[2024-03-07] MEDS: HYDROmorphone 2 MG/ML SYR 0.5 MG IVP (09:36)
[2024-03-07] MEDS: Normal Saline Flush 10 ML SYR IVP ×2 (09:37→11:02)
[2024-03-07 09:38] LABS: Bilirubin Negative (Negative); Blood Negative (Negative); Clarity Clear (Clear); Glucose Negative (Negative); Ketones Negative (Negative); Leukocyte Esterase Negative (Negative); Nitrite Negative (Negative); Urobilinogen 0.2 mg/dL (Up to 0.2)
[2024-03-07 09:52] LABS: ALT 22 U/L (14-59); AST 16 U/L (15-37); Albumin 4.1 g/dL (3.4-5.0); Alkaline Phosphatase 102 U/L (46-116); Anion Gap 8.6 mmol/L (3-11); BUN 18 mg/dL (7-18); CO2 28.4 mmol/L (21.0-32.0); CREATININE 0.6 mg/dL (0.55-1.02); Calcium 9.2 mg/dL (8.5-10.1); Chloride 106 mmol/L (98-107); Estimated GFR 107.93 (mL/min/1.73m2); Glucose 75 mg/dL (74-106); Lipase 34 U/L (<78); Magnesium 1.8 mg/dL (1.8-2.4); Potassium 4.1 mmol/L (3.5-5.1); Sodium 143 mmol/L (136-145); Total Protein 7.7 g/dL (6.4-8.2); Troponin I 14 ng/L (<or=51)
[2024-03-07] MEDS: Normal Saline - Diluent 50 ML VIAL IJ (10:19)
[2024-03-07] MEDS: Omnipaque 350 MG/ML 500 ML BTL-Imaging package 75 ML IJ (10:20)
--- NOTE | 2024-03-07 10:26 | DI.CT_ITS ---
Exam(s) CT ABDOMEN PELVIS W EXAM: CT ABDOMEN PELVIS W CLINICAL HISTORY: Abd pain, RLQ moved to epigastic, hx cervical Ca. TECHNIQUE: Imaging Protocol: Axial computed tomography images with coronal and sagittal reformatted images were created and reviewed CONTRAST MATERIAL: Intravenous: Omnipaque-350 75cc Oral: None COMPARISON: CT CT CHEST PE CTA from 10/21/2022 FINDINGS: VISUALIZED LUNG BASES: No nodules nor pleural effusions evident. ABDOMEN: There is no ascites. LIVER: There are no focal hepatic lesions evident. No dilated intrahepatic ducts. GALLBLADDER/BILIARY: No obvious gallbladder pathology. CBD is not dilated. PANCREAS: No evidence of pancreatic mass nor dilatation of the pancreatic duct. There is very subtle streaking around the pancreatic tail seen on the axial images, less evident on the sagittal coronal images. This may represent volume averaging with the adjacent stomach. SPLEEN: Spleen is enlarged measuring 14.5 cm. There are no discrete splenic lesions. Splenic and po rtal veins are patent. ADRENALS: There are no significant adrenal masses. KIDNEYS:No cysts evident. No solid renal masses. No calculi nor hydronephrosis.. ABDOMINAL AORTA: Abdominal aorta is not enlarged. LYMPH NODES:There is no retroperitoneal nor paraaortic adenopathy. ABDOMINAL WALL: No evidence of significant anterior abdominal wall nor inguinal hernia. GI: There is no evidence of bowel obstruction, free air, nor abscess. PELVIS: GI: No evidence of appendicitis.No evidence of sigmoid diverticulitis. LYMPH NODES: There is no intrapelvic nor inguinal adenopathy. REPRODUCTIVE: Uterus is small or surgically absent. Ovaries are not easily identifiable. There are multiple dilated veins in both adnexal regions. These drain into an enlarged left gonadal vein which exhibits diameter of 9 mm and is nonthrombosed and drains into a nonthrombosed pre aortic left renal vein. URINARY BLADDER: There is abnormal uniform thickening of the urinary bladder wall (7 mm). There is n o gas in the bladder wall. No discrete focal bladder mass seen. There are no radiopaque calculi wit hin the urinary bladder. OSSEOUS: No fractures and no significant osseous lesions. IMPRESSION: 1. There is splenomegaly. Craniocaudal length of the spleen is 14.5 cm. There are no discrete splen ic lesions. Splenic and portal veins are patent. 2. Uterus is small or surgically absent. There are multiple dilated veins in both adnexal regions, m ore prominent on the left side and draining into a nonthrombosed prominent caliber left gonadal vein. 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 3. There is abnormal uniform thickening of the urinary bladder wall which exhibits thickness 6-7 mm. 4. Possible very subtle streaking around the pancreatic tail. Correlation with any clinical findings of pancreatitis recommended. Remainder of the pancreas appears unremarkable. RADIATION DOSE DELIVERED: 494.93mGy.cm Total DLP DATA REPOSITORY: All CT scans at this facility are submitted to the National Radiology Data Registry (NRDR) Dose Index Registry (DIR) with the [employer] (ACR). RADIATION OPTIMIZATION: All CT scans at this facility use at least one of these dose optimization te chniques: automated exposure control; mA and/or kV adjustment per patient size (includes targeted exa ms where dose is matched to clinical indication); or iterative reconstruction.
[2024-03-07] MEDS: Ondansetron 4 MG/2 ML VIAL IVP (11:01)
[2024-03-07 11:57] LABS: Troponin I 13 ng/L (<or=51)
[2024-03-07] MEDS: Ondansetron O.D.T. 4 MG TABEF, 3 TABS/BTL PO (13:10)
== END 2024-03-07 13:14 | disposition home or self-care (01) ==
PROVIDERS: Emergency Provider Emergency Medicine; PCP Nurse Practitioner Family
DX: R10.13 Epigastric pain (principal); N94.89 Other specified conditions associated with female genital organs and menstrual cycle; R16.1 Splenomegaly, not elsewhere classified
CPT/HCPCS: 36415; 80053; 81025; 83690; 96374; 96375; 99285; 74177; 81003; 83735; 84484; 85025; J1171; J2405

== ENCOUNTER 2024-04-12 00:25 | Outpatient (CLI) | payer MEDICAID, SELFPAY ==
--- OUTSIDE RECORDS SUMMARY | 2024-04-12 00:27 | XMS_ITS | Encounter Summary ---
Author Organization [facility] [place] [address] Care Team Providers Care Relay Shop Tester Name Role Phone Marlon Levine MD Primary Care Provider [phone] Reason for Visit * Reason Onset Date Comments Other 05/07/2020 Encounter Details Date Type Department Care Team (Late st Contact Info) Description 05/07/2020 Telephone Hematology/Oncology at [address] [address] Ary Felix RN Other Social [...] on filedocumented in this encounter Care Teams Relay Shop Tester Relationship Specialty Start Date End Date Marlon Levine MD [address] [place] [address] PCP - General 06/20/12 documented as of this encounter
--- OUTSIDE RECORDS SUMMARY | 2024-04-12 00:27 | XMS_ITS | Encounter Summary ---
Author Organization [facility] [place] [address] Care Team Providers Care Motors Assembler Name Role Phone Marlon Levine MD Primary Care Provider [phone] Encounter Details Date Type Department Care Team (Late st Contact Info) Description 07/26/2018 8:45 AM EDT Office Visit Hematology/Oncology at [address] [address] Celeste Le APRN Malignant neoplasm of female [...] negative. Ten LNs were seen, all negative. ER/NM negative. HER2/cynthia negative. B. Four cycles of [...] There was no ALI or perineural invasion. ER/NM negative. HER2/cynthia negative by FISH. B. 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 I encouraged a yearly visit with her PCP last year however this year asks if she needs to see one for more than PRN illness issues- I told herthat an annual exam and basic labs of CBC and CMP are recommended yearly along with her GREASE REFINER OPERATOR fwup. Her daughter has not yet [...] breast documented in this encounter Care Teams Motors Assembler Relationship Specialty Start Date End Date Marlon Levine MD [address] [place] [address] PCP - General 06/20/12 documented as of this encounter
--- OUTSIDE RECORDS SUMMARY | 2024-04-12 00:27 | XMS_ITS | Clinical Summary ---
Author Organization [facility] Address [facility] [place] [address] Care Team Providers Care Rock Wool Applicator Name Role Phone Marlon Levine MD Primary Care Provider + [phone] Allergies Active Allergy Reactions Criticality Noted Date [...] Comments HPV Routine 07/26/2016 11:55 AM EDT LODGING MANAGER CYTOLOGY FINAL REPORT Routine 07/26/2016 11:55 AM EDT GLUCOSE STAT 06/13/2013 7:30 PM EDT from Last 3 Months or Most Recently Relevant to Health Maintenance Results * (ABNORMAL) HPV (07/26/2016 11:55 AM EDT) HPV16 NEGATIVE NEGATIVE [facility] HPV 18 NEGATIVE NEGATIVE [facility] HPV Other HR POSITIVE(A) NEGATIVE [facility] HPV Interpretation See Comment [facility] Comment: POSITIVE for high-risk HPV* [...] Lab Valentina Moore MD PATHOLOGY/CYTOLOGY O RDERABLES [facility] [place] [address] * Control Clerk Subassembly Cytology Final Report (07/26/2016 11:55 AM EDT) Control Clerk Subassembly Cytology Final Report [id number] ?Location: 5L The signing pathologist has (i) [...] Clinical Genomics and Advanced Technology (CGAT) at [facility]. ? - John Jolley, PhD, [facility], Director-[facility] _ Electronically signed by: ??Lab Review, Molecular Genetics Verified: ??08/12/2016 ? Control Clerk Subassembly Final DIAGNOSIS Epithelial Cell Abnormality Atypical Squamous [...] I.U.D.?: ? No Pelvic Radiation: ?No Prior LODGING MANAGER Therapy?: ?[facility] Biopsy . CLINICAL INFORMATION Hist [...] variables. ??For further information please contact the [facility]. Reference: ??Roger LADD. ??Desk Pens Assembler of Pap Smear Results. ??In: ??Aureliano BS, [place] HH, ed. ??The Pap Smear. ??[place]: ??Edilberto, 2002: ??71-77. [facility] 07/26/2016 11:5 5 AM EDT Valentina Moore MD PATHOLOGY/CYTOLOGY Miguel MANCUSO [facility] [place] [address] * Glucose, random (06/13/2013 7:30 PM EDT) Glucose 74 60 - 199 mg/dL [facility]ERNER MILLENNIUM Comment:Diabetes: >=200 mg/d L plus symptoms Blood specimen (specimen) 06/13/2013 7:30 PM EDT 06/13/2013 7:38 PM EDT Narrative Resulting Agency Comment Spec In Lab Wicho Pizano MD CHEMISTRY ORDERABLES [facility] from Last 3 Months or Most Recently Relevant to Health Maintenance Advance Directives * Full Code (Latest Code Status on File) Date Activated Date Inactivated Comments 04/27/2011 6:02 PM 04/30/2011 5:15 PM Question Answer Comments Order Status: Initial Order Does patient have decision m aking capacity? Yes, Order is based on Patients wishes. Care Teams Rock Wool Applicator Relationship Specialty Start Date End Date Marlon Levine MD [address] [place] [address] PCP - General 06/20/12
--- OUTSIDE RECORDS SUMMARY | 2024-04-12 00:27 | XMS_ITS | Encounter Summary ---
Author Organization [facility]ly [facility] [place] [address] Care Team Providers Care Mammography Supervisor Name Role Phone Marlon Levine MD Primary Care Provider [phone] Encounter Details Date Type Department Care Team (Late st Contact Info) Description 06/15/2017 2:15 PM EDT Office Visit Hematology/Oncology at [address] [phone] Ingrid Delacruz, MUSHTAQ Malignant neoplasm of female breast, unspecified estrogen [...] in this encounter Progress Notes * Ingrid Delacruz APRN - 06/15/2017 2:15 PM EDT Subjective: Patient ID: Antonia Jennings is a 46 y.o. female. Problem List: 1. Cancer of the left breast, T2, N0, M0. A. Dx'd 01/29, s/p lumpectomy and ALND. Path-2.5-cm infiltrating ductal carcinoma, SBR score of 8. Final margins of resection were negative. Ten LNs were seen, all negative. ER/IA negative. HER2/cynthia negative. B. Four cycles of [...] There was no ALI or perineural invasion. ER/IA negative. HER2/cynthia negative by FISH. B. In [...] breast cancer and unfortunately in 01/08 in [place]. She has another sister who had a [...] breast cancer history and now her recent DIRECTOR OF WOMEN'S SERVICES history, she was evaluated and followed at [facility] and have given her a referral to Valentina Moore MD. I encouraged a yearly visit with her PCP last year however this year asks if she needs to see one for more than PRN illness issues- I toldher that an annual exam and basic labs of CBC and CMP are recommended yearly along with her DIRECTOR OF WOMEN'S SERVICES fwup. Her daughter has not yet started [...] she has a sister who lived in [place] and unfortunately of stage IV breast cancer [...] or by age 31. Ingrid Delacruz, MSN, EDITOR INDEX, AOCN Hematology/Oncology Nurse Practitioner [place], [place] [phone] Medical Oncology follow-up is based on ASCO guidelines which indicates physical examinations shouldbe performed every 3 to 6 months for the first 3 years; every 6 to 12 months for years 4 and 5 and annually thereafter. Http://jco.ascopubs.org/content/961/T1.expansion.html Recommendations for Breast Cancer Follow-Up and Management [...] breast documented in this encounter Care Teams Mammography Supervisor Relationship Specialty Start Date End Date Marlon Levine MD [address] [place] [address] PCP - General 06/20/12 documented as of this encounter
--- OUTSIDE RECORDS SUMMARY | 2024-04-12 00:27 | XMS_ITS | Encounter Summary ---
Author Organization [facility] [place] [address] Care Team Providers Care Quality Assurance Specialist Name Role Phone Marlon Levine MD Primary Care Provider [phone] Encounter Details Date Type Department Care Team (Latest Contact Info) Description 06/13/2017 - 06/13/2017 11:59 PM EDT Hospital Encounter Radiology Library at [facility] [place] [address] Ingrid Delacruz APRN Discharge Disposition: Home Social History Tobacco Use [...] nuclear medicine (06/13/2017 12:00 AM EDT) Narrative [facility] - 06/14/2017 10:54 AM EDT This exam is for storage only and is auto-finalizing. Ingrid Delacruz APRN IMG FILM LIBRARY ORD ERABLES [place], [place] documented in this encounter Visit Diagnoses Not on filedocumented in this encounter Care Teams Quality Assurance Specialist Relationship Specialty Start Date End Date Marlon Levine MD [address] [place] [address] PCP - General 06/20/12 documented as of this encounter
--- OUTSIDE RECORDS SUMMARY | 2024-04-12 00:27 | XMS_ITS | Encounter Summary ---
Author Organization [facility] [place] [address] Care Team Providers Care Education Reviewer Name Role Phone Marlon Levine MD Primary Care Provider [phone] Reason for Visit * Reason Onset Date Comments Labs Only 06/09/2017 Report today lab s Encounter Details Date Type Department Care Team (Late st Contact Info) Description 06/09/2017 Telephone Hematology/Oncology at [address] [phone] Mary Alice Naidu RN Labs [...] on filedocumented in this encounter Care Teams Education Reviewer Relationship Specialty Start Date End Date Marlon Levine MD [address] [place] [address] PCP - General 06/20/12 documented as of this encounter
--- OUTSIDE RECORDS SUMMARY | 2024-04-12 00:28 | XMS_ITS | Encounter Summary ---
Author Organization Count Includes [facility] Address [facility] [place] [address] Care Team Providers Care Cosmetology Educator Name Role Phone Marlon Levine MD Primary Care Provider + [phone] Reason for Visit * Reason Comments Breast Cancer Encounter Details Date Type Department Care Team (Late st Contact Info) Description 03/07/2014 9:00 AM EST Office Visit Hematology Oncology at [address] [phone] John Beltran MD [facility] [place] [address] Malignant neoplasm of breast (female), unspecified site; [...] test result disclosure. Priscilla Rubi, our program placement secretary, will contact Antonia in the near [...] breast documented in this encounter Care Teams Cosmetology Educator Relationship Specialty Start Date End Date Marlon Levine MD [address] [place] [address] PCP - General 06/20/12 documented as of this encounter
--- OUTSIDE RECORDS SUMMARY | 2024-04-12 00:28 | XMS_ITS | Encounter Summary ---
Author Organization [facility] Address [facility] [place] [address] Care Team Providers Care Front Line Leader Name Role Phone Marlon Levine MD Primary Care Provider [phone] Reason for Visit * Reason Onset Date Comments Results 06/23/2016 Encounter Details Date Type Department Care Team (Late st Contact Info) Description 06/23/2016 Telephone Obstetrics [place] [phone] Valentina Moore MD [facility] DR OBSTETRICS [place] [address] Results Social History Tobacco Use Types Packs/Day [...] like clarification. You can reach her at: [phone] Thanks, Mara If she needs to be [...] on filedocumented in this encounter Care Teams Front Line Leader Relationship Specialty Start Date End Date Marlon Levine MD [address] [place] [address] PCP - General 06/20/12 documented as of this encounter
--- OUTSIDE RECORDS SUMMARY | 2024-04-12 00:28 | XMS_ITS | Encounter Summary ---
Author Organization [facility] [place] [address] Care Team Providers Care Baker Pie Name Role Phone Marlon Levine MD Primary Care Provider [phone] Encounter Details Date Type Department Care Team (Late st Contact Info) Description 07/01/2013 Orders [place] [address] Tari Chen MD Social History Tobacco Use Types Packs/Day [...] on filedocumented in this encounter Care Teams Baker Pie Relationship Specialty Start Date End Date Marlon Levine MD [address] [place] [address] PCP - General 06/20/12 documented as of this encounter
--- OUTSIDE RECORDS SUMMARY | 2024-04-12 00:28 | XMS_ITS | Encounter Summary ---
Author Organization [facility] [place] [address] Care Team Providers Care Laminator Printed Circuit Boards Name Role Phone Marlon Levine MD Primary Care Provider + [phone] Encounter Details Date Type Department Care Team (Late st Contact Info) Description 09/02/2016 Telephone Dermatology at [facility] [address] [place] [address] Kenrick Chen MD [address] [facility] [place] [address] Social History Tobacco Use Types Packs/Day Years [...] sent at 09/01/2016 7:58 PM EDT ----- [id number] Skin, right tip of nose, shave biopsy: Molluscum contagiosum. Molluscum Contagiosum, Nose Viral infection. Shave biopsy should have treated this. No further treatment necessary. documented in this encounter Plan of Treatment Not on file documented as of this encounter Visit Diagnoses Not on filedocumented in this encounter Care Teams Laminator Printed Circuit Boards Relationship Specialty Start Date End Date Marlon Levine MD [address] [place] [address] PCP - General 06/20/12 documented as of this encounter
--- OUTSIDE RECORDS SUMMARY | 2024-04-12 00:28 | XMS_ITS | Encounter Summary ---
Author Organization [facility]ly [facility] Address [facility] [place] [address] Care Team Providers Care Dress Draper Name Role Phone Marlon Levine MD Primary Care Provider [phone] Reason for Referral * Consultation (Routine) - Complete-Ref Provider Notified Specialty Diagnoses / Procedures Referred By Mateo sims Referred To Contact Ophthalmology Diagnoses Esotropia Erick Marx MD [facility] [place] [place] [address] Maria C Gomez MD Referral ID Status Reason Start Date Expiration Date Visits Requested Visits Authorized [id number] Complete-Ref Provider Notified Consult, Test & Treat 08/09/2012 02/05/2013 1 1 Encounter Details Date Type Department Care Team (Late st Contact Info) Description 08/09/2012 12:45 PM EDT Office Visit Neurology at [place] [phone] Erick Marx MD [facility] [place] [place] [address] Migraine (Primary Dx); Esotropia Discharge Disposition: Home [...] notice that really until she saw an welding tester locally for headaches, and she was noted [...] 6 hours as needed. Allergies: Entered into orangutrans. Allergies Allergen Reactions ??? Adhesive Tape Rash [...] get a sleep evaluation next week at [facility]. Otherwise negative. In general, she appears [...] 5/5 throughout. Reflexes 2/4 throughout. Coordination: Normal nnhydp-blkk-sszdpr and hsoe-aokf-kjxq testing. Sensory exam is intact to light touch in the upper and lower extremities as well as vibration. Gait is normal including tandem. Romberg negative. Imaging Data: See history of presenting illness regarding recent unremarkable brain MRI, although I do not have the images. Per report it is normal. It was done at [facility] on June 19. Assessment: Antonia Lance [...] Hormone 1.50 0.27 - 4.20 mcIU/mL MENDEL AVERY Blood specimen (specimen) 08/09/2012 2:22 PM EDT 08/09/2012 2:30 PM EDT Narrative Resulting Agency Comment Spec In Lab Erick Marx MD CHEMISTRY ORDERABLES MENDEL AVERY documented in this encounter Visit Diagnoses Diagnosis Migraine- Primary Migraine, unspecified, without mention of intractable migraine without mention of status migrainosus Esotropia Esotropia, unspecified documented in this encounter Care Teams Dress Draper Relationship Specialty Start Date End Date Marlon Levine MD [address] [place] [address] PCP - General 06/20/12 documented as of this encounter
--- OUTSIDE RECORDS SUMMARY | 2024-04-12 00:28 | XMS_ITS | Encounter Summary ---
Author Organization [facility] [place] [address] Care Team Providers Care Color Room Attendant Name Role Phone Marlon Levine MD Primary Care Provider + [phone] Reason for Visit * Reason Onset Date Comments Other 11/20/2012 breast changes Encounter Details Date Type Department Care Team (Late st Contact Info) Description 11/20/2012 Telephone Hematology Oncology at [address] [phone] Cyndy Falcon, RN Other (breast [...] on filedocumented in this encounter Care Teams Color Room Attendant Relationship Specialty Start Date End Date Marlon Levine MD [address] [place] [address] PCP - General 06/20/12 documented as of this encounter
--- OUTSIDE RECORDS SUMMARY | 2024-04-12 00:28 | XMS_ITS | Encounter Summary ---
Author Organization [facility] Address [facility] [place] [address] Care Team Providers Care Senior Technical Writer Name Role Phone Marlon Levine MD Primary Care Provider [phone] Reason for Visit * Reason Comments Follow-up Encounter Details Date Type Department Care Team (Late st Contact Info) Description 03/23/2012 3:00 PM EST Follow-Up Hematology Oncology at [address] [phone] John Beltran MD [facility] [place] [address] Breast cancer (Primary Dx) Discharge Disposition: Home [...] negative. Ten LNs were seen, all negative. ER/NC negative. HER2/cynthia negative. B. Four cycles of [...] There was no ALI or perineural invasion. ER/NC negative. HER2/cynthia negative by FISH. B. In [...] today, she feels well. 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 No areas of pain.Her [...] site documented in this encounter Care Teams Senior Technical Writer Relationship Specialty Start Date End Date Marlon Levine MD [address] [place] [address] PCP - General 02/16/10 06/19/12 documented as of this encounter
--- OUTSIDE RECORDS SUMMARY | 2024-04-12 00:28 | XMS_ITS | Encounter Summary ---
Author Organization [facility] [place] [address] Care Team Providers Care Manager Heavy Duty Name Role Phone Marlon Levine MD Primary Care Provider [phone] Encounter Details Date Type Department Care Team (Late st Contact Info) Description 02/14/2013 Abstract [place] [address] Maria C Gomez MD Social History Tobacco Use Types Packs/Day [...] filedocumented in this encounter Care Teams Manager Heavy Duty Relationship Specialty Start Date End Date Marlon Levine MD [address] [place] [address] PCP - General 06/20/12 documented as of this encounter
--- OUTSIDE RECORDS SUMMARY | 2024-04-12 00:28 | XMS_ITS | Encounter Summary ---
Author Organization [facility] [place] [address] Care Team Providers Care Dental Laboratory Technician Name Role Phone Marlon Levine MD Primary Care Provider [phone] Reason for Visit * Reason Comments Colposcopy Encounter Details Date Type Department Care Team (Latest Contact Info) Description 08/23/2016 9:30 AM EDT Procedure visit Obstetrics [place] [address] Valentina Moore MD [facility] DR OBSTETRICS [place] [address] Cervical dysplasia Social History Tobacco Use Types [...] Report (08/23/2016 9:54 AM EDT) Final Diagnosis [id number] ?Location: 5L The signing pathologist has (i) [...] ing: (T1) ??nurys 08/25/2016 11:04 AM EDT [facility] ENDOCERVICAL STRUCTURE / Unknown 08/23/2016 9:54 AM EDT 08/23/2016 9:54 AM EDT Valentina Moore MD PATHOLOGY/CYTOLOGY O RDERABLES [facility] [place] [address] * Specimen to Pathology (NON-OR) (08/23/2016 9:54 AM EDT) AP Specimen 08/23/2016 9:54 AM EDT 08/23/2016 9:54 AM EDT Narrative [facility] - 08/23/2016 9:54 AM EDT Specimen requisition ordered. ??Separate Pathology report to follow Valentina Moore MD PATHOLOGY/CYTOLOGY O BARTOLOME [facility] [place] [address] documented in this encounter Visit Diagnoses Diagnosis Cervical dysplasia Dysplasia of cervix, unspecified documented in this encounter Care Teams Dental Laboratory Technician Relationship Specialty Start Date End Date Marlon Levine MD [address] [place] [address] PCP - General 06/20/12 documented as of this encounter
--- OUTSIDE RECORDS SUMMARY | 2024-04-12 00:28 | XMS_ITS | Encounter Summary ---
Author Organization [facility] [place] [address] Care Team Providers Care Leather Tooler Name Role Phone Marlon Levine MD Primary Care Provider [phone] Encounter Details Date Type Department Care Team (Late st Contact Info) Description 08/06/2012 [place] [address] Erick Marx MD [facility] [place] [address] Social History Tobacco Use Types Packs/Day Years [...] on filedocumented in this encounter Care Teams Leather Tooler Relationship Specialty Start Date End Date Marlon Levine MD [address] [place] [address] PCP - General 06/20/12 documented as of this encounter
--- OUTSIDE RECORDS SUMMARY | 2024-04-12 00:28 | XMS_ITS | Encounter Summary ---
Author Organization [facility] Address [facility] [place] [address] Care Team Providers Care Surveillance Agent Name Role Phone Marlon Levine MD Primary Care Provider + [phone] Encounter Details Date Type Department Care Team (Late st Contact Info) Description 07/01/2013 2:09 PM EDT Anesthesia Event [place] [phone] Satnam Guerra MD [facility] [place] [address] Mauro Gold CRNA Anesthesia Record Procedure Summary Procedure Name Responsible [...] 1222; median cubital vein (antecubital fossa), right; qtla-mgu-sgliai catheter system; 22 gauge, 1 in length; [...] ENDOSCOPIC ULTRASOUND performed by CHUCHO ZAPATA at [facility] END[facility] History Substance Use Topics ??? [...] Anesthetic plan and risks discussed with patient. [facility]. Assessment: documented in this encounter Plan of [...] r documented in this encounter Care Teams Surveillance Agent Relationship Specialty Start Date End Date Marlon Levine MD [address] [place] [address] PCP - General 06/20/12 documented as of this encounter
--- OUTSIDE RECORDS SUMMARY | 2024-04-12 00:28 | XMS_ITS | Encounter Summary ---
Author Organization [facility] Address [facility] [place] [address] Care Team Providers Care Gut Puller Name Role Phone Marlon Levine MD Primary Care Provider [phone] Reason for Visit * Reason Comments Follow-up Encounter Details Date Type Department Care Team (Late st Contact Info) Description 10/19/2012 1:00 PM EDT Follow-Up Hematology Oncology at [address] [phone] John Beltran MD [facility] [place] [address] Breast cancer (Primary Dx) Discharge Disposition: Home [...] in this encounter Progress Notes * John Beltrna MD - 10/19/2012 12:39 PM EDT Subjective: Patient ID: Antonia Lance is a 42 y.o. female. Problem List: 1. Cancer of the left breast, T2, N0, M0. A. Dx'd 01/29, s/p lumpectomy and ALND. Path-2.5-cm infiltrating ductal carcinoma, SBR score of 8. Final margins of resection were negative. Ten LNs were seen, all negative. ER/ME negative. HER2/cynthia negative. B. Four cycles of [...] There was no ALI or perineural invasion. ER/ME negative. HER2/cynthia negative by FISH. B. In [...] trial of CPAP. 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 No areas of pain. [...] site documented in this encounter Care Teams Gut Puller Relationship Specialty Start Date End Date Marlon Levine MD [address] [place] [address] PCP - General 06/20/12 documented as of this encounter
--- OUTSIDE RECORDS SUMMARY | 2024-04-12 00:28 | XMS_ITS | Encounter Summary ---
Author Organization [facility] Address [facility] [place] [address] Care Team Providers Care Pmo Lead Name Role Phone Marlon Levine MD Primary Care Provider + [phone] Reason for Visit * Reason Comments Dermatitis Encounter Details Date Type Department Care Team (Late st Contact Info) Description 08/17/2011 3:45 PM EDT Office Visit Dermatology [facility] [address] [place] [address] Mauro Sung MD [address] [place] [address] Halo nevus (Primary Dx); Neurodermatitis Social History [...] which she has only been treating with puny-tyl-unvcomx emollient lotions and creams. For about six [...] chronicus documented in this encounter Care Teams Pmo Lead Relationship Specialty Start Date End Date Marlon Levine MD [address] [place] [address] PCP - General 02/16/10 06/19/12 documented as of this encounter
--- OUTSIDE RECORDS SUMMARY | 2024-04-12 00:28 | XMS_ITS | Encounter Summary ---
Author Organization [facility] [place] [address] Care Team Providers Care Fiberglass Dowel Drawing Operator Name Role Phone Marlon Levine MD Primary Care Provider + [phone] Reason for Visit * Reason Onset Date Comments Other 01/11/2013 Encounter Details Date Type Department Care Team (Late st Contact Info) Description 01/11/2013 Telephone Hematology Oncology at [address] [phone] Cyndy Falcon, RN Other Social History Tobacco [...] on filedocumented in this encounter Care Teams Fiberglass Dowel Drawing Operator Relationship Specialty Start Date End Date Marlon Levine MD [address] [place] [address] PCP - General 06/20/12 documented as of this encounter
--- OUTSIDE RECORDS SUMMARY | 2024-04-12 00:28 | XMS_ITS | Encounter Summary ---
Author Organization [facility] [place] [address] Care Team Providers Care Stock Worker And Deliverer Name Role Phone Marlon Levine MD Primary Care Provider + [phone] Reason for Visit * Reason Onset Date Comments Results 08/18/2016 Encounter Details Date Type Department Care Team (Late st Contact Info) Description 08/18/2016 Telephone Obstetrics [place] [address] Valentina Moore MD [facility] [address] [place] [address] Results Social History Tobacco Use Types Packs/Day [...] on filedocumented in this encounter Care Teams Stock Worker And Deliverer Relationship Specialty Start Date End Date Marlon Levine MD [address] [place] [address] PCP - General 06/20/12 documented as of this encounter
--- OUTSIDE RECORDS SUMMARY | 2024-04-12 00:28 | XMS_ITS | Encounter Summary ---
Author Organization [facility] [place] [address] Care Team Providers Care Photolithographer Name Role Phone Marlon Levine MD Primary Care Provider [phone] Encounter Details Date Type Department Care Team (Late st Contact Info) Description 04/30/2012 Telephone [place] [phone] Ana Lilia Soria APRN Social History Tobacco Use Types Packs/Day Years [...] on filedocumented in this encounter Care Teams Photolithographer Relationship Specialty Start Date End Date Marlon Levine MD [address] [place] [address] PCP - General 02/16/10 06/19/12 documented as of this encounter
--- OUTSIDE RECORDS SUMMARY | 2024-04-12 00:28 | XMS_ITS | Encounter Summary ---
Author Organization [facility] [place] [address] Care Team Providers Care Collections And Archives Director Name Role Phone Marlon Levine MD Primary Care Provider + [phone] Encounter Details Date Type Department Care Team (Late st Contact Info) Description 11/08/2013 Telephone [place] [phone] Jennifer Marin, RN Social History Tobacco Use [...] on filedocumented in this encounter Care Teams Collections And Archives Director Relationship Specialty Start Date End Date Marlon Levine MD [address] [place] [address] PCP - General 06/20/12 documented as of this encounter
--- OUTSIDE RECORDS SUMMARY | 2024-04-12 00:28 | XMS_ITS | Encounter Summary ---
Author Organization [facility] [place] [address] Care Team Providers Care Multiple Drum Sander Name Role Phone Marlon Levine MD Primary Care Provider + [phone] Encounter Details Date Type Department Care Team (Late st Contact Info) Description 07/29/2016 Telephone Obstetrics [place] [address] Valentina Moore MD [facility] [address] OBSTETRICS [place] [address] Social History Tobacco Use Types Packs/Day Years [...] history is as follows: Had [place]EEP in [place] in 12/2015 - confirmed DANTE 2 with negative margins. No ECC done at that time. Has not had any follow-up yet. She saw Ingrid Delacruz NP in the oncology division recently, who recommended that she have a payroll clerk here at [facility] to make sure [...] ENDOSCOPIC ULTRASOUND performed by CHUCHO ZAPATA at [facility] ENDOSCOPY ??? PRO UPPER GI ENDOSCOPY, DIAGNOSTIC 07/01/2013 EGD, UPPER GI ENDOSCOPY performed by Tali Kamara MD at [facility] ENDOSCOPY Family History Problem Relation Age [...] will schedule her for a routine annual metal base blocker visit. Will get in touch regarding results as soon as they are available. Valentina Moore MD documented in this encounter Plan of Treatment Not on file documented as of this encounter Visit Diagnoses Not on filedocumented in this encounter Care Teams Multiple Drum Sander Relationship Specialty Start Date End Date Marlon Levine MD [address] [place] [address] PCP - General 06/20/12 documented as of this encounter
--- OUTSIDE RECORDS SUMMARY | 2024-04-12 00:28 | XMS_ITS | Encounter Summary ---
Author Organization [facility] Address [facility] [place] [address] Care Team Providers Care Mosaicist Name Role Phone Marlon Levine MD Primary Care Provider [phone] Encounter Details Date Type Department Care Team (Latest Contact Info) Description 07/01/2013 3:28 PM EDT - 07/01/2013 11:59 PM EDT Hospital [place] [phone] CLINIC, Tali Loco MD [facility] [place] [address] Weight loss Discharge Disposition: Home Social History [...] mg documented in this encounter Care Teams Mosaicist Relationship Specialty Start Date End Date Marlon Levine MD [address] [place] [address] PCP - General 06/20/12 documented as of this encounter
--- OUTSIDE RECORDS SUMMARY | 2024-04-12 00:28 | XMS_ITS | Encounter Summary ---
Author Organization [facility] [place] [address] Care Team Providers Care Wringer And Setter Name Role Phone Marlon Levine MD Primary Care Provider [phone] Encounter Details Date Type Department Care Team (Late st Contact Info) Description 04/30/2012 Telephone [place] [phone] Ana Lilia Soria APRN Social History Tobacco [...] on filedocumented in this encounter Care Teams Wringer And Setter Relationship Specialty Start Date End Date Marlon Levine MD [address] [place] [address] PCP - General 02/16/10 06/19/12 documented as of this encounter
--- OUTSIDE RECORDS SUMMARY | 2024-04-12 00:28 | XMS_ITS | Encounter Summary ---
Author Organization [facility] [place] [address] Care Team Providers Care Hand Cementer Name Role Phone Marlon Levine MD Primary Care Provider [phone] Reason for Visit * Reason Onset Date Comments Results 08/25/2016 Encounter Details Date Type Department Care Team (Late st Contact Info) Description 08/25/2016 Telephone Obstetrics [place] [address] Valentina Moore MD [facility] DR OBSTETRICS [place] [address] Results Social History Tobacco Use Types Packs/Day [...] on filedocumented in this encounter Care Teams Hand Cementer Relationship Specialty Start Date End Date Marlon Levine MD [address] [place] [address] PCP - General 06/20/12 documented as of this encounter
--- OUTSIDE RECORDS SUMMARY | 2024-04-12 00:28 | XMS_ITS | Encounter Summary ---
Author [facility] [place] [address] Care Team Providers Care Trains Service Conductor Name Role Phone Marlon Levine MD Primary Care Provider + [phone] Encounter Details Date Type Department Care Team (Late st Contact Info) Description 11/05/2013 [place] [phone] Laury Katz RN Social History Tobacco Use [...] on filedocumented in this encounter Care Teams Trains Service Conductor Relationship Specialty Start Date End Date Marlon Levine MD [address] [place] [address] PCP - General 06/20/12 documented as of this encounter
--- OUTSIDE RECORDS SUMMARY | 2024-04-12 00:28 | XMS_ITS | Encounter Summary ---
Author Organization [facility] [place] [address] Care Team Providers Care Mains And Service Supervisor Name Role Phone Marlon Levine MD Primary Care Provider + [phone] Reason for Visit * Reason Comments Breast Mass Encounter Details Date Type Department Care Team (Late st Contact Info) Description 11/21/2012 9:15 AM EDT Follow[place] [phone] Ana Lilia Soria APRN Mass (Primary Dx) Discharge Disposition: Home Social [...] this encounter Progress Notes * Ana Lilia Soria APRN - 11/21/2012 9:53 AM EDT Antonia is [...] Ten lymph nodes were negative. Thetumor was ER/PA-negative and HER2-negative. Antonia went on to adjuvant [...] metaplastic spindle cell features Tumor Grade: High Gamaeg-Ldikg-Evfjvgrtvd Score: 8 Tubular Differentiation: 3 Mitotic Rate: [...] Nipple Involvement: NA Correlation Biopsies/Cytology Needle bx [id number], 08/07/07. 2005-left breast excision [id number]. Other findings: NA Estrogen/Progestin receptors: Performed on block A4 ER immunoreactivity: Negative (see Diagnostic del toro*) PA immunoreactivity: Negative (see Diagnostic del toro*) HER2 negative Julian node excision was without evidence of metastatic [...] lump documented in this encounter Care Teams Mains And Service Supervisor Relationship Specialty Start Date End Date Marlon Levine MD [address] [place] [address] PCP - General 06/20/12 documented as of this encounter
--- OUTSIDE RECORDS SUMMARY | 2024-04-12 00:28 | XMS_ITS | Encounter Summary ---
Author Organization [facility] [place] [address] Care Team Providers Care Boring Machine Operator Helper Name Role Phone Marlon Levine MD Primary Care Provider + [phone] Encounter Details Date Type Department Care Team (Late st Contact Info) Description 03/17/2014 Telephone H[place]ology [place] [phone] Ronda Cruz MS Social History Tobacco Use Types Packs/Day Years [...] the Familial Cancer Program on 03/07/2014 in [facility]. She had previously had negative BRCA1/2 testing in 2005, but it did not seem as though she had the ANGELA part of the testing. She returned on 03/07 to have ANGELA done. I had received notification from [employer] that she actually did indeed have BARTtesting [...] on filedocumented in this encounter Care Teams Boring Machine Operator Helper Relationship Specialty Start Date End Date Marlon Levine MD [address] [place] [address] PCP - General 06/20/12 documented as of this encounter
--- OUTSIDE RECORDS SUMMARY | 2024-04-12 00:28 | XMS_ITS | Encounter Summary ---
Author Organization [facility] Address [facility] [place] [address] Care Team Providers Care Quotation Clerk Name Role Phone Marlon Levine MD Primary Care Provider [phone] Encounter Details Date Type Department Care Team (Late st Contact Info) Description 09/20/2011 2:00 PM EDT Follow-Up Hematology Oncology at [address] [phone] John Beltran MD [facility] [place] [address] Breast cancer (Primary Dx) Discharge Disposition: Home [...] negative. Ten LNs were seen, all negative. ER/VA negative. HER2/cynthia negative. B. Four cycles of [...] There was no ALI or perineural invasion. ER/VA negative. HER2/cynthia negative by FISH. B. In [...] today, she feels well. 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 Her energy level is good. She does self exam of the reconstructed breasts and has not noted any areas of concern. She was recently in the ED at [facility] with abrasions on her knees and there [...] site documented in this encounter Care Teams Quotation Clerk Relationship Specialty Start Date End Date Marlon Levine MD [address] [place] [address] PCP - General 02/16/10 06/19/12 documented as of this encounter
--- OUTSIDE RECORDS SUMMARY | 2024-04-12 00:28 | XMS_ITS | Encounter Summary ---
Author Organization [facility] [place] [address] Care Team Providers Care Cotton Wringer Name Role Phone Marlon Levine MD Primary Care Provider + [phone] Reason for Visit * Reason Comments Skin Lesion Encounter Details Date Type Department Care Team (Late st Contact Info) Description 08/31/2016 8:45 AM EDT Office Visit Dermatology at [facility] [address] [place] [address] Kenrick Chen MD [address] [facility] [place] [address] Neoplasm of uncertain behavior of skin (Primary [...] Chen MD - 09/01/2016 7:58 PM EDT [id number] Skin, right tip of nose, shave biopsy: Molluscum contagiosum. Molluscum Contagiosum, Nose Viral infection. Shave biopsy should have treated this. No further treatment necessary. * Kenrick Chen MD - 08/31/2016 8:45 AM EDT Images from the original note were not included. DEPARTMENT DERMATOLOGY AT [facility] Dermatology At [facility] [address] [facility] [address] NEW PATIENT Chief Complaint: Lesion on nose [...] Kenrick Chen MD FAAD Section of Dermatology [facility] documented in this encounter Plan of Treatment Not on file documented as of this encounter Procedures Procedure Name Priority Date/Time Associated Diagnosis Comments SPECIMEN TO PATHOLOGY (NON-OR) Routine 08/31/2016 10:38 AM EDT Neoplasm of uncertain behavior of skin SURGICAL PATHOLOGY REPORT Routine 08/31/2016 10:38 AM EDT documented in this encounter Results * Surgical Pathology Report (08/31/2016 10:38 AM EDT) Final Diagnosis [id number] ?Location: [facility] The signing pathologist has (i) [...] MD PATHOLOGY/CYTOLOGY O RDERABLES [facility] [place] [address] * Specimen to Pathology (NON-OR) (08/31/2016 10:38 AM EDT) AP Specimen 08/31/2016 10:3 8 AM EDT 08/31/2016 12:47 PM EDT Narrative [facility] - 08/31/2016 12:48 PM EDT Specimen requisition ordered. ??Separate Pathology report to follow Resulting Agency Comment Spec In Lab Kenrick Chen MD PATHOLOGY/CYTOLOGY O BARTOLOME [facility] [place] [address] documented in this encounter Visit Diagnoses Diagnosis Neoplasm of uncertain behavior of skin- Primary documented in this encounter Care Teams Cotton Wringer Relationship Specialty Start Date End Date Marlon Levine MD [address] [place] [address] PCP - General 06/20/12 documented as of this encounter
--- OUTSIDE RECORDS SUMMARY | 2024-04-12 00:28 | XMS_ITS | Encounter Summary ---
Author Organization [facility] [place] [address] Care Team Providers Care Computer Network Support Specialist Name Role Phone Marlon Levine MD Primary Care Provider + [phone] Encounter Details Date Type Department Care Team (Late st Contact Info) Description 07/03/2013 Telephone [place] [phone] Elena Graham RN Social History Tobacco Use [...] filedocumented in this encounter Care Teams Computer Network Support Specialist Relationship Specialty Start Date End Date Marlon Levine MD [address] [place] [address] PCP - General 06/20/12 documented as of this encounter
--- OUTSIDE RECORDS SUMMARY | 2024-04-12 00:28 | XMS_ITS | Encounter Summary ---
Author Organization [facility] Address [facility] [place] [address] Care Team Providers Care Coffee Bar Attendant Name Role Phone Marlon Levine MD Primary Care Provider + [phone] Encounter Details Date Type Department Care Team (Late st Contact Info) Description 07/26/2016 10:00 AM EDT Office Visit Obstetrics [place] [address] Valentina Moore MD [facility] [address] OBSTETRICS [place] [address] Cervical dysplasia, moderate Social History Tobacco Use [...] history is as follows: Had LEEP in [place] in 12/2015 - confirmed DANTE 2 with negative margins. No ECC done at that time. Has not had any follow-up yet. She saw Ingrid Delacruz NP in the oncology division recently, who recommended that she have a canary raiser here at [facility] to make sure she is treated and [...] ENDOSCOPIC ULTRASOUND performed by CHUCHO ZAPATA at [facility] ENDOSCOPY ??? PRO UPPER GI ENDOSCOPY, DIAGNOSTIC ?? 07/01/2013 ?? EGD, UPPER GI ENDOSCOPY performed by Tali Kamara MD at [facility] ENDOSCOPY ?? Family History Problem Relation Age [...] will schedule her for a routine annual raw mill operator visit. Will get in touch regarding results as soon as they are available. ?? Valentina Moore MD documented in this encounter Plan of Treatment Not on file documented as of this encounter Visit Diagnoses Diagnosis Cervical dysplasia, moderate Moderate dysplasia of cervix documented in this encounter Care Teams Coffee Bar Attendant Relationship Specialty Start Date End Date Marlon Levine MD [address] [place] [address] PCP - General 06/20/12 documented as of this encounter
--- OUTSIDE RECORDS SUMMARY | 2024-04-12 00:28 | XMS_ITS | Encounter Summary ---
Author Organization [facility] [place] [address] Care Team Providers Care Engineering Designer Name Role Phone Marlon Levine MD Primary Care Provider [phone] Encounter Details Date Type Department Care Team (Latest Contact Info) Description 05/30/2011 12:23 PM EST - 05/30/2011 11:59 PM EST Hospital Encounter MRI at [facility] [place] [address] CLINIC, Zach Lopez MD Pancreatitis Discharge Disposition: Home Social History Tobacco [...] and interpretation reviewed by the attending Zach CRUZ MRI ORDERABLES documented in this encounter Visit Diagnoses Diagnosis Pancreatitis Acute pancreatitis documented in this encounter Care Teams Engineering Designer Relationship Specialty Start Date End Date Marlon Levine MD [address] [place] [address] PCP - General 02/16/10 06/19/12 documented as of this encounter
--- OUTSIDE RECORDS SUMMARY | 2024-04-12 00:28 | XMS_ITS | Encounter Summary ---
Author Organization [facility] [place] [address] Care Team Providers Care Rn Care Manager Name Role Phone Marlon Levine MD Primary Care Provider [phone] Reason for Referral * Consultation (Routine) - Closed Specialty Diagnoses / Procedures Referred By Mateo sims Referred To Contact Gastroenterology Diagnoses Abdominal colic Wicho Pizano MD [facility] [place] [address] [facility] [address] [place] [address] Referral ID Status Reason Start Date Expiration Date V isits Requested Visits Authorized [id number] Closed Assume Subset of Care 06/13/2013 12/10/2013 1 1 Reason for Visit * Reason Comments Abdominal Pain Encounter Details Date Type Department Care Team (Late st Contact Info) Description 06/13/2013 6:16 PM EDT - 06/13/2013 10:32 PM EDT Emergency [place] [address] Wicho Pizano MD [facility] [place] [address] Abdominal colic Discharge Disposition: Home [...] URINE DIPSTICK Component Value Range POC Sp [place] 1.025 1.002 - 1.030 POC pH, UA [...] Sample in lab. Wicho Pizano MD 06/13/13 2154 * Constance Cruz RN - 06/13/2013 6:40 [...] MD HEMATOLOGY ORDERABLE S Performing Organization Address [facility] Co de Phone Number MENDEL AVERY * Lavender Tube HOLD (06/13/2013 8:50 PM EDT) Lavender Hold Sample in lab. MENDEL AVERY Blood specimen (specimen) 06/13/2013 8:50 PM EDT 06/13/2013 9:06 PM EDT Wicho Pizano MD HEMATOLOGY ORDERABLE S Performing Organization Address City/[facility]/ZIP Co de Phone Number MENDEL AVERY * Green Tube HOLD (06/13/2013 8:50 PM EDT) Green Hold Sample in lab. MENDEL AVERY Blood specimen (specimen) 06/13/2013 8:50 PM EDT 06/13/2013 9:05 PM EDT Wicho Pizano MD CHEMISTRY ORDERABLES Performing Organization Address [facility] de Phone Number MENDEL COLLAZOIUM * [...] Pizano MD CHEMISTRY ORDERABLES Performing Organization Address [facility] Phone Number CERJING COLLAZOIUM * Potassium (06/13/2013 [...] Pizano MD CHEMISTRY ORDERABLES Performing Organization Address [facility] Co de Phone Number CERJING REDDYENNIUM [...] (06/13/2013 7:30 PM EDT) Pathologist [facility] Gold Hold Sample in lab. MENDEL COLLAZOIUM Blood specimen (specimen) 06/13/2013 7:30 PM EDT 06/13/2013 7:40 PM EDT Wicho Pizano MD CHEMISTRY ORDERABLES Performing Organization Address [facility]/ZIP Co de Phone Number MENDEL COLLAZOIUM * Blue Tube HOLD (06/13/2013 7:30 PM EDT) Blue Hold Sample in lab. CERNER BARRYENNIUM Blood specimen (specimen) 06/13/2013 7:30 PM EDT 06/13/2013 7:40 PM EDT Wicho Pizano MD HEMATOLOGY ORDERABLE S Performing Organization Address City/[facility] Co de Phone Number MENDEL COLLAZOIUM * Lipase (06/13/2013 7:30 PM EDT) Lipase 26 0 - 60 unit/L CERNER BARRYENNIUM Blood specimen (specimen) 06/13/2013 7:30 PM EDT 06/13/2013 7:38 PM EDT Narrative Resulting Agency Comment Spec In Lab Wicho Pizano MD CHEMISTRY ORDERABLES Performing Organization Address [facility] Co de Phone Number MENDEL COLLAZOIUM [...] Pizano MD CHEMISTRY ORDERABLES Performing Organization Address City/[facility]/ZIP Co de Phone Number [facility] EdupathIUM * Glucose, random (06/13/2013 7:30 PM EDT) Glucose 74 60 - 199 mg/dL CERNER TRAFIENNIUM Comment:Diabetes: >=200 mg/d L plus symptoms Blood specimen (specimen) 06/13/2013 7:30 PM EDT 06/13/2013 7:38 PM EDT Narrative Resulting Agency Comment Spec In Lab Wicho Pizano MD CHEMISTRY ORDERABLES Performing Organization Address [facility] Co de Phone Number [facility] Edupath[facility]UM * (ABNORMAL) Creatinine (06/13/2013 7:30 PM EDT) Creatinine 0.67(L) 0.70 - 1.20 mg/dL [facility] Comment: Please note that the pediatric reference intervals supplied above were not validated at [facility]. Results from pediatric patients should be interpreted [...] Pizano MD CHEMISTRY ORDERABLES Performing Organization Address City/[facility]/ZIP Co de Phone Number CERJING REDDYENNIUM * (ABNORMAL) Electrolytes panel (06/13/2013 7:30 PM EDT) Sodium 137 135 - 145 mmol/L CERNER MILLENNIUM Potassium Not Perf 3.5 - 5.0 mmol/L CERNER MILLENNIUM Comment: Called by: [facility], Read back by: FITZ PIZANO, Date/Time:06/13/13 [...] Blood Cell 4.60 3.93 - 5.22 x10(6)/mcL [facility] Hemoglobin 14.4 11.2 - 15.7 gm/dL [facility] Hematocrit 42.9 34.0 - 45.0 % [facility] Mean Cell Volume 93.3 79.0 - 94.0 fL [facility] Mean Cell Hemoglobin 31.3 26.6 - 32.2 pg [facility] Mean Cell Hemoglobin Concentration 33.6 32.0 - 36.5 gm/dL [facility] Platelet 197 145 - 370 x10(3)/mcL [facility] RDW Standard Deviation 44.9 35.0 - 46.0 fL [facility] RDW coefficient of variation 13.1 10.9 - 14.4 % [facility] Mean Platelet Volume 10.6 9.0 - 12.[address] [facility] Blood specimen (specimen) 06/13/2013 7:30 PM EDT 06/13/2013 7:38 PM EDT Narrative Resulting Agency Comment Spec In Lab Wicho Pizano MD HEMATOLOGY ORDERABLE S [facility] * POCT urine dipstick (06/13/2013 6:50 PM EDT) POC Sp [place] 1.025 1.002 - 1.030 POC pH, UA [...] Mora) documented in this encounter Care Teams Rn Care Manager Relationship Specialty Start Date End Date Marlon Levine MD [address] [place] [address] PCP - General 06/20/12 documented as of this encounter
--- OUTSIDE RECORDS SUMMARY | 2024-04-12 00:28 | XMS_ITS | Encounter Summary ---
Author Organization [facility] Address [facility] [place] [address] Care Team Providers Care Fibre Cement Moulder Name Role Phone Marlon Levine MD Primary Care Provider [phone] Reason for Referral * Consultation (Routine) - Closed Specialty Diagnoses / Procedures Referred By Contness t Referred To Contact Obstetrics and Gynecology Diagnoses Malignant neoplasm of female breast, unspecified laterality, unspecified site of breast Ingrid Delacruz APRN [facility] DR HEMATOLOGY/[place] [address] Valentina Moore MD [facility] OBSTETRICS [place] [address] Referral ID Status Reason Start Date Expiration Date V isits Requested Visits Authorized [id number] Closed Assume Subset of Care 05/27/2016 05/27/2017 1 1 Encounter Details Date Type Department Care Team (Late st Contact Info) Description 05/27/2016 8:45 AM EST Office Visit Hematology/Oncology at [address] [phone] Ingrid Delacruz, MUSHTAQ Malignant neoplasm of female breast, unspecified laterality, [...] documented in this encounter Progress Notes * Jayme Ingrid A, AIR INTERCEPT CONTROLLER SUPERVISOR - 05/27/2016 8:45 AM EST Subjective: Patient [...] breast cancer history and now her recent GUARDIAN AD LITEM history, I would prefer that she be evaluated and followed at [facility] and have given her a referral to Valentina Moore MD and obtained her records which will be scanned into scanned doc tab of her [facility] chart. I also reviewed s&s of both [...] that is negative. The patient also had NAGELA testing which was negative. Another sister had [...] or by age 30. Ingrid Delacruz, MSN, ADVANCED PRACTICE NURSE PSYCHOTHERAPIST, AOCN Hematology/Oncology Nurse Practitioner [place], [place] [phone] documented in this encounter Plan of Treatment Scheduled Referrals Name Type Priority Associated Diagnoses Orde r Schedule Referral to Ob-Cager Operator Outpatient Referral Routine Malignant Neoplasm Of Female [...] breast documented in this encounter Care Teams Fibre Cement Moulder Relationship Specialty Start Date End Date Marlon Levine MD [address] [place] [address] PCP - General 06/20/12 documented as of this encounter
--- OUTSIDE RECORDS SUMMARY | 2024-04-12 00:28 | XMS_ITS | Encounter Summary ---
Author Organization [facility] [place] [address] Care Team Providers Care Montessori Program Director Name Role Phone Marlon Levine MD Primary Care Provider [phone] Encounter Details Date Type Department Care Team (Late st Contact Info) Description 06/09/2017 11:15 AM EDT Office Visit Hematology/Oncology at [address] [address] Ingrid Delacruz, MUSHTAQ Malignant neoplasm of female [...] Progress Notes * Ingrid Delacruz APRN - 06/09/2017 11:15 AM EDT Subjective: Patient ID: Antonia Jennings is a 46 y.o. female. Problem List: 1. Cancer of the left breast, T2, N0, M0. A. Dx'd 01/29, s/p lumpectomy and ALND. Path-2.5-cm infiltrating ductal carcinoma, SBR score of 8. Final margins of resection were negative. Ten LNs were seen, all negative. ER/NE negative. HER2/cynthia negative. B. Four cycles of [...] There was no ALI or perineural invasion. ER/NE negative. HER2/cynthia negative by FISH. B. In [...] Screening Completed: After treatment completion Screening Location: [facility] Hem Onc Objective: Physical Exam Constitutional: She is [...] breast cancer history and now her recent AUTO BODY REPAIRER FIBERGLASS history, she was evaluated and followed at [facility] and have given her a referral to Valentina Moore MD. I encouraged a yearly visit with her PCP last year however this year asks if she needs to see one for more than PRN illness issues- I toldher that an annual exam and basic labs of CBC and CMP are recommended yearly along with her AUTO BODY REPAIRER FIBERGLASS fwup. Her daughter has not yet started [...] or by age 31. Ingrid Delacruz, MSN, ANALYTICAL LAB TECHNICIAN, AOCN Hematology/Oncology Nurse Practitioner [place], [place] [phone] documented in this encounter Plan of Treatment Not on file documented as of this encounter Visit Diagnoses Diagnosis Malignant neoplasm of female breast, unspecified estrogen receptor status, unspecified laterality, unspecified site of breast documented in this encounter Care Teams Montessori Program Director Relationship Specialty Start Date End Date Marlon Levine MD [address] [place] [address] PCP - General 06/20/12 documented as of this encounter
--- OUTSIDE RECORDS SUMMARY | 2024-04-12 00:28 | XMS_ITS | Encounter Summary ---
Author Organization Count Includes [facility] Address [facility] [place] [address] Care Team Providers Care Shipper/Receiver Name Role Phone Marlon Levine MD Primary Care Provider + [phone] Reason for Visit * Reason Comments Strabismus 6--wks f/u for ESOTR OPIA-OD Encounter Details Date Type Department Care Team (Late st Contact Info) Description 12/07/2012 2:15 PM EDT [place] [address] Nikki Orourke MD [facility] [place] [address] Esotropia (Primary Dx); Anisometropia Discharge Disposition: Home [...] Mild amblyopia OD. Plan: Cont current Rx aircraft time clerk. F/u with SMP as scheduled. If no concerns for neuro-op cause, willplan to see her back in 6 months. NIKKI OROURKE MD documented in this encounter Plan of Treatment Not on file documented as of this encounter Visit Diagnoses Diagnosis Esotropia- Primary Esotropia, unspecified Anisometropia documented in this encounter Care Teams Shipper/Receiver Relationship Specialty Start Date End Date Marlon Levine MD [address] [place] [address] PCP - General 06/20/12 documented as of this encounter
--- OUTSIDE RECORDS SUMMARY | 2024-04-12 00:28 | XMS_ITS | Encounter Summary ---
Author Organization [facility] [place] [address] Care Team Providers Care City Constable Name Role Phone Marlon Levine MD Primary Care Provider [phone] Reason for Referral * Consultation (Routine) - Closed Specialty Diagnoses / Procedures Referred By Mateo sims Referred To Contact Hematology and Oncology Diagnoses Breast cancer, female, unspecified laterality John Beltran MD [facility] [place] [address] I[place] [address] Referral ID Status Reason Start Date Expiration Date V isits Requested Visits Authorized [id number] Closed Consult, Test & Treat 04/19/2013 10/16/2013 1 1 Encounter Details Date Type Department Care Team (Late st Contact Info) Description 04/19/2013 3:30 PM EST Follow-Up Hematology Oncology at [address] [phone] John Beltran MD [facility] [place] [address] Breast cancer, female, unspecified laterality (Primary Dx) [...] negative. Ten LNs were seen, all negative. ER/CT negative. HER2/cynthia negative. B. Four cycles of [...] There was no ALI or perineural invasion. ER/CT negative. HER2/cynthia negative by FISH. B. In [...] Primary documented in this encounter Care Teams City Constable Relationship Specialty Start Date End Date Marlon Levine MD [address] [place] [address] PCP - General 06/20/12 documented as of this encounter
--- OUTSIDE RECORDS SUMMARY | 2024-04-12 00:28 | XMS_ITS | Encounter Summary ---
Author Organization [facility] Address [facility] [place] [address] Care Team Providers Care Varnish Blender Name Role Phone Marlon Levine MD Primary Care Provider [phone] Encounter Details Date Type Department Care Team (Latest Contact Info) Description 11/23/2012 3:00 PM EDT - 11/23/2012 11:59 PM EDT Hospital [place] [phone] CLINIC, Margarita Vaughn MD [facility] [place] [address] [place] Discharge Disposition: Home Social History Tobacco [...] lump documented in this encounter Care Teams Varnish Blender Relationship Specialty Start Date End Date Marlon Levine MD [address] [place] [address] PCP - General 06/20/12 documented as of this encounter
--- OUTSIDE RECORDS SUMMARY | 2024-04-12 00:28 | XMS_ITS | Encounter Summary ---
Author Organization [facility] Address [facility] [place] [address] Care Team Providers Care Machine Applicator Cementer Name Role Phone Marlon Levine MD Primary Care Provider [phone] Reason for Referral * Consultation (Routine) - Closed Specialty Diagnoses / Procedures Referred By Mateo sims Referred To Contact Hematology and Oncology Diagnoses Bilateral breast cancer History of breast cancer, family history of breast cancer Procedures Consult and treat John Beltran MD [facility] [place] [address] Stj Hem Onc Infusion [address] [place] [phone] Referral ID Status Reason Start Date Expiration Date V isits Requested Visits Authorized [id number] Closed Consult, Test & Treat 11/22/2013 05/21/2014 1 1 Reason for Visit * Reason Comments Breast Cancer Encounter Details Date Type Department Care Team (Late st Contact Info) Description 11/22/2013 3:30 PM EDT Follow-Up Hematology Oncology at [address] [phone] John Beltran MD [facility] [place] [place] [address] Bilateral breast cancer (Primary Dx) Discharge Disposition: [...] Labs: Not performed Assessment and Plan: Ms. Lanec is a 43 year-old female with a [...] she has a sister who lives in [place] and unfortunately has stage IV breast cancer. [...] Primary documented in this encounter Care Teams Machine Applicator Cementer Relationship Specialty Start Date End Date Marlon Levine MD [address] [place] [address] PCP - General 06/20/12 documented as of this encounter
--- OUTSIDE RECORDS SUMMARY | 2024-04-12 00:28 | XMS_ITS | Encounter Summary ---
Author Organization [facility] Address [facility] [place] [address] Care Team Providers Care Etcher Aircraft Name Role Phone Marlon Levine MD Primary Care Provider + [phone] Reason for Visit * Reason Comments Strabismus Double vision,blurry vision,OD Encounter Details Date Type Department Care Team (Late st Contact Info) Description 11/01/2012 2:00 PM EDT Office [place] [address] Nikki Orourke MD [facility] [place] [address] Diplopia (Primary Dx); Esotropia; Accommodative spasm; Anisometropia; [...] ET. Plan: Rx given to address anisometropia. director of flight operations wear needed. No bifocals at this time. F/u in 6 weeks with EMS, SMP next available. NIKKI OROURKE MD documented in this encounter Plan of Treatment Not on file documented as of this encounter Visit Diagnoses Diagnosis Diplopia- Primary Esotropia Esotropia, unspecified Accommodative spasm Spasm of accommodation Anisometropia Myopic astigmatism Astigmatism, unspecified documented in this encounter Care Teams Etcher Aircraft Relationship Specialty Start Date End Date Marlon Levine MD [address] [place] [address] PCP - General 06/20/12 documented as of this encounter
--- OUTSIDE RECORDS SUMMARY | 2024-04-12 00:28 | XMS_ITS | Encounter Summary ---
Author Organization [facility] [place] [address] Care Team Providers Care Water Pollution Control Inspector Name Role Phone Marlon Levine MD Primary Care Provider + [phone] Encounter Details Date Type Department Care Team (Late st Contact Info) Description 10/30/2012 2:15 PM EDT Follow[place] [address] Erick Marx MD [facility] DR [place] [address] Migraine (Primary Dx); Visual complaint Discharge Disposition: [...] really noticed it until she saw an child day care provider locally for her headaches and then was [...] goes to college. 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 She does not smoke, does not [...] eye documented in this encounter Care Teams Water Pollution Control Inspector Relationship Specialty Start Date End Date Marlon Levine MD [address] [place] [address] PCP - General 06/20/12 documented as of this encounter
--- OUTSIDE RECORDS SUMMARY | 2024-04-12 00:28 | XMS_ITS | Encounter Summary ---
Author Organization [facility] Address [facility] [place] [address] Care Team Providers Care Environmental Services Technician Name Role Phone Marlon Levine MD Primary Care Provider [phone] Reason for Visit * Reason Comments Follow-up Encounter Details Date Type Department Care Team (Late st Contact Info) Description 04/03/2015 3:30 PM EST Office Visit Hematology/Oncology at [address] [phone] John Beltran MD [facility] [place] [address] Bilateral malignant neoplasm of breast in female, [...] breast documented in this encounter Care Teams Environmental Services Technician Relationship Specialty Start Date End Date Marlon Levine MD [address] [place] [address] PCP - General 06/20/12 documented as of this encounter
--- OUTSIDE RECORDS SUMMARY | 2024-04-12 00:28 | XMS_ITS | Encounter Summary ---
Author Organization [facility] [place] [address] Care Team Providers Care Cinder Crane Operator Name Role Phone Marlon Levine MD Primary Care Provider [phone] Reason for Visit * Reason Onset Date Comments Follow-up 11/29/2012 Encounter Details Date Type Department Care Team (Late st Contact Info) Description 11/29/2012 Telephone [place] [phone] Ana Lilia Soria APRN Follow-up Social History Tobacco Use Types Packs/Day [...] [facility] an [facility]. I have left her my number asking her to call me. documented in this encounter Plan of Treatment Not on file documented as of this encounter Visit Diagnoses Not on filedocumented in this encounter Care Teams Cinder Crane Operator Relationship Specialty Start Date End Date Marlon Levine MD [address] [place] [address] PCP - General 06/20/12 documented as of this encounter
--- OUTSIDE RECORDS SUMMARY | 2024-04-12 00:28 | XMS_ITS | Encounter Summary ---
Author Organization [facility] [place] [address] Care Team Providers Care Cell Tuber Hand Name Role Phone Marlon Levine MD Primary Care Provider + [phone] Encounter Details Date Type Department Care Team (Late st Contact Info) Description 10/31/2012 Abstract [place] [address] Nikki Hill MD [facility] [place] [place] [address] Social History Tobacco Use Types Packs/Day Years [...] on filedocumented in this encounter Care Teams Cell Tuber Hand Relationship Specialty Start Date End Date Marlon Levine MD [address] [place] [address] PCP - General 06/20/12 documented as of this encounter
--- OUTSIDE RECORDS SUMMARY | 2024-04-12 00:28 | XMS_ITS | Encounter Summary ---
Author Organization [facility] [place] [address] Care Team Providers Care Primary Care Sales Representative Name Role Phone Marlon Levine MD Primary Care Provider + [phone] Reason for Visit * Reason Comments Follow-up Encounter Details Date Type Department Care Team (Late st Contact Info) Description 06/21/2013 10:00 AM EDT [place] [phone] Tari Chen MD Weight loss (Primary Dx) Discharge Disposition: Home [...] labwork; most recent ED visit was at [facility] 06/13/13. Pt was sent home with TID dicyclomine --Presented to [facility] with abdominal pain, DC from ED [...] Chen MD Fellow, Section of Gastroenterology Pager [phone] documented in this encounter Plan of Treatment [...] weight documented in this encounter Care Teams Primary Care Sales Representative Relationship Specialty Start Date End Date Marlon Levine MD [address] [place] [address] PCP - General 06/20/12 documented as of this encounter
--- OUTSIDE RECORDS SUMMARY | 2024-04-12 00:28 | XMS_ITS | Encounter Summary ---
Author Organization [facility] [place] [address] Care Team Providers Care Patch Press Operator Name Role Phone Marlon Levine MD Primary Care Provider [phone] Encounter Details Date Type Department Care Team (Late st Contact Info) Description 07/01/2013 1:00 PM EDT - 07/01/2013 1:30 PM EDT [place] [phone] Tali Kamara MD [facility] [place] [address] EGD, UPPER GI ENDOSCOPY (WRVU 2.09) Social [...] not get better as expected. Monday-Monday Clinic [phone] 8a-5p Same Day Endo [phone] 7a-8p Otherwise contact [phone] and ask to speak to the chronometer repairer senior internet sales consultant Follow-up care is a del toro [...] PM EDT 07/01/2013 2:37 PM EDT [facility] - 07/01/2013 2:37 PM EDT Specimen requisition ordered. ??Separate Pathology report to follow Tali Kamara MD PATHOLOGY/CYTOLOGY O [facility]DEL [facility] * UPPER GI ENDOSCOPY (07/01/2013 2:09 PM EDT) UPPER GI ENDOSCOPY [facility] Endoscopy Patient Name: Antonia Lance ? Procedure Date: 07/01/2013 2:09 PM ? N: [id number] ? Date of : 1970 ? Age: 42 ? Order #: [id number] ? Procedure: ? Upper GI endoscopy Indications: ? Epigastric abdominal pain Providers: ? Tali Kamara MD, Tari Chen MD, ? Suraj Silva, RN, Nayla Torres. ? [place] Referring : ?Marlon Levine MD Medicines: ? [...] CRNA) documented in this encounter Care Teams Patch Press Operator Relationship Specialty Start Date End Date Marlon Levine MD [address] [place] [address] PCP - General 06/20/12 documented as of this encounter
--- OUTSIDE RECORDS SUMMARY | 2024-04-12 00:28 | XMS_ITS | Encounter Summary ---
Author Organization [facility] [place] [address] Care Team Providers Care Cotton Bag Sewer Name Role Phone Marlon Levine MD Primary Care Provider + [phone] Reason for Visit * Reason Onset Date Comments Follow-up 11/29/2012 Encounter Details Date Type Department Care Team (Late st Contact Info) Description 11/29/2012 Telephone [place] [phone] Ana Lilia Soria APRN Follow-up Social History [...] filedocumented in this encounter Care Teams Cotton Bag Sewer Relationship Specialty Start Date End Date Marlon Levine MD [address] [place] [address] PCP - General 06/20/12 documented as of this encounter
--- OUTSIDE RECORDS SUMMARY | 2024-04-12 00:28 | XMS_ITS | Encounter Summary ---
Author Organization [facility] [place] [address] Care Team Providers Care Belt Tender Name Role Phone Marlon Levine MD Primary Care Provider + [phone] Reason for Visit * Reason Comments Diplopia Encounter Details Date Type Department Care Team (Late st Contact Info) Description 02/26/2013 1:00 PM EST Office Visit Ophthalmology at [facility] [place] [address] Maria C Gomez MD Esotropia (Primary Dx) Discharge Disposition: Home Social [...] unspecified documented in this encounter Care Teams Belt Tender Relationship Specialty Start Date End Date Marlon Levine MD [address] [place] [address] PCP - General 06/20/12 documented as of this encounter
--- OUTSIDE RECORDS SUMMARY | 2024-04-12 00:28 | XMS_ITS | Encounter Summary ---
Author Organization [facility] [address] Care Team Providers Care Retail Key Holder Name Role Phone Marlon Levine MD Primary Care Provider [phone] Encounter Details Date Type Department Care Team (Late st Contact Info) Description 05/07/2014 Notes [place] [address] Tania Hassan, RN Social History Tobacco Use [...] filedocumented in this encounter Care Teams Retail Key Holder Relationship Specialty Start Date End Date Marlon Levine MD [address] [place] [address] PCP - General 06/20/12 documented as of this encounter
--- OUTSIDE RECORDS SUMMARY | 2024-04-12 00:28 | XMS_ITS | Encounter Summary ---
Author Organization [facility] [place] [address] Care Team Providers Care Finance Specialist Name Role Phone Marlon Levine MD Primary Care Provider + [phone] Encounter Details Date Type Department Care Team (Late st Contact Info) Description 06/24/2013 Telephone [place] [phone] Elena Graham, RN Social History Tobacco Use [...] on filedocumented in this encounter Care Teams Finance Specialist Relationship Specialty Start Date End Date Marlon Levine MD [address] [place] [address] PCP - General 06/20/12 documented as of this encounter
--- OUTSIDE RECORDS SUMMARY | 2024-04-12 00:28 | XMS_ITS | Encounter Summary ---
Author Organization [facility] [place] [address] Care Team Providers Care Tar Heater Operator Name Role Phone Marlon Levine MD Primary Care Provider [phone] Encounter Details Date Type Department Care Team (Latest Contact Info) Description 07/01/2013 11:53 AM EDT - 07/01/2013 3:24 PM EDT Hospital Encounter [place] [phone] Tali Kmaara MD [facility] [place] [address] Queenie Hicks MD Discharge Disposition: Home Social History Tobacco [...] not get better as expected. Monday-Monday Clinic [phone] 8a-5p Same Day Endo [phone] 7a-8p Otherwise contact [phone] and ask to speak to the forestry support specialist tv production assistant Follow-up care is a del toro part [...] PM EDT 07/01/2013 2:37 PM EDT Dhaval [facility] - 07/01/2013 2:37 PM EDT Specimen requisition ordered. ??Separate Pathology report to follow Tali Kamara MD PATHOLOGY/CYTOLOGY O [facility]ENDRA [facility] * UPPER GI ENDOSCOPY (07/01/2013 2:09 PM EDT) UPPER GI ENDOSCOPY [facility] Endoscopy Patient Name: Antonia Lance ? Procedure Date: 07/01/2013 2:09 PM ? N: [id number] ? Date of : 1970 ? Age: 42 ? Order #: [id number] ? Procedure: ? Upper GI endoscopy Indications: [...] CRNA) documented in this encounter Care Teams Tar Heater Operator Relationship Specialty Start Date End Date Marlon Levine MD [address] [place] [address] PCP - General 06/20/12 documented as of this encounter
--- OUTSIDE RECORDS SUMMARY | 2024-04-12 00:29 | XMS_ITS | Encounter Summary ---
Author Organization [facility] Address [facility] [place] [address] Care Team Providers Care Printed Circuit Board Layout Designer Name Role Phone Marlon Levine MD Primary Care Provider + [phone] Encounter Details Date Type Department Care Team (Late st Contact Info) Description 10/30/2008 Orders Only [place] [address] Margarita Joe MD [facility] [place] [address] Social History Tobacco Use Types Packs/Day Years [...] 10:50 AM EDT) Surgical Pathology Report [id number] ? Location: 3WST; 0301; A The signing [...] tissue from slice at deep margin; (14) counter sales representative fibrous tissue from outer lower quadrant; (15) counter sales representative fibrous tissue from lower inner quadrant; (16) counter sales representative fibrous tissue from upper inner quadrant. [...] quadrant; (9) lower inner quadrant. ?? (R9) ??[facility] Microscopic Description Slides reviewed, microscopic description not recorded. Diagnosis Specimen: ? A - Breast, right, skin-sparing mastectomy Specimen Size: ?17.0 x 14.0 x 2.5 cm Residual malignancy: ?Absent Prior Bx's correlation: [id number], partial mastectomy ?[id number], axillary lymph nodes Other findings: ? Fibrocystic [...] on filedocumented in this encounter Care Teams Printed Circuit Board Layout Designer Relationship Specialty Start Date End Date Marlon Levine MD [address] [place] [address] PCP - General 06/20/12 documented as of this encounter
--- OUTSIDE RECORDS SUMMARY | 2024-04-12 00:29 | XMS_ITS | Encounter Summary ---
Author Organization [facility] Address [facility] [place] [address] Care Team Providers Care Associate Publisher Name Role Phone Marlon Levine MD Primary Care Provider [phone] Encounter Details Date Type Department Care Team (Late st Contact Info) Description 04/21/2010 2:35 PM EST Follow-Up [place] [address] Margarita Joe MD [facility] [place] [address] Discharge Disposition: Home Social History Tobacco Use [...] filedocumented in this encounter Care Teams Associate Publisher Relationship Specialty Start Date End Date Marlon Levine MD [address] [place] [address] PCP - General 02/16/10 06/19/12 documented as of this encounter
--- OUTSIDE RECORDS SUMMARY | 2024-04-12 00:29 | XMS_ITS | Encounter Summary ---
Author Organization [facility] Address [address] [place] [address] Care Team Providers Care Wine Merchant Name Role Phone Marlon Levine MD Primary Care Provider [phone] Encounter Details Date Type Department Care Team (Latest Contact Info) Description 03/02/2018 9:58 EST - 03/02/2018 23:59 EST Hospital Encounter [address] [address] Izabella Moise MD Discharge Disposition: Home or Self Care [...] on filedocumented in this encounter Care Teams Wine Merchant Relationship Specialty Start Date End Date Marlon Levine MD [address] [place] [address] PCP - General 06/17/12 documented as of this encounter
--- OUTSIDE RECORDS SUMMARY | 2024-04-12 00:29 | XMS_ITS | Referral Summary ---
Author Organization [facility] Address [address] [place] [address] Care Team Providers Care Broaching Machine Repairer Name Role Phone Marlon Levine MD Primary Care Provider [phone] Allergies Active Allergy Reactions Criticality Noted Date [...] 06/17/2012 1605 EDT Respiratory Rate 18 06/17/2012 195 EDT Oxygen Saturation 98% 06/17/20121957 EDT Inhaled Oxygen Concentration - - Weight 88.5 kg (195 lb) 06/17/2012 1605 EDT Height 175.3 cm (5' 9) 06/17/2012 1605 EDT Body Mass Index 28.8 06/17/2012 1605 EDT Plan of Treatment Not on file Insurance MEDICAID [place] Care Teams Broaching Machine Repairer Relationship Specialty Start Date End Date Marlon Levine MD [address] [place] [address] PCP - General 06/17/12
--- OUTSIDE RECORDS SUMMARY | 2024-04-12 00:29 | XMS_ITS | Encounter Summary ---
Author Organization [facility] [place] [address] Care Team Providers Care Drier Tender Naphthalene Name Role Phone Marlon Levine MD Primary Care Provider + [phone] Encounter Details Date Type Department Care Team (Late st Contact Info) Description 04/24/2011 Orders [place] [address] Jc Carpenter MD Social History Tobacco Use Types Packs/Day [...] Carpenter MD IMG FILM LIBRARY ORD ERABLES [facility] [address] [place] [address] documented in this encounter Visit Diagnoses Not on filedocumented in this encounter Care Teams Drier Tender Naphthalene Relationship Specialty Start Date End Date Marlon Levine MD [address] [place] [address] PCP - General 02/16/10 06/19/12 documented as of this encounter
--- OUTSIDE RECORDS SUMMARY | 2024-04-12 00:29 | XMS_ITS | Encounter Summary ---
Author Organization [facility] [place] [address] Care Team Providers Care Womens Volleyball Coach Name Role Phone Marlon Levine MD Primary Care Provider + [phone] Encounter Details Date Type Department Care Team (Late st Contact Info) Description 04/21/2011 Orders [place] [address] Jc Carpenter MD Social History Tobacco Use [...] Carpenter MD IMG FILM LIBRARY ORD ERABLES [facility] [address] [place] [address] documented in this encounter Visit Diagnoses Not on filedocumented in this encounter Care Teams Womens Volleyball Coach Relationship Specialty Start Date End Date Marlon Levine MD [address] [place] [address] PCP - General 02/16/10 06/19/12 documented as of this encounter
--- OUTSIDE RECORDS SUMMARY | 2024-04-12 00:29 | XMS_ITS | Encounter Summary ---
Author Organization [facility] [place] [address] Care Team Providers Care Ic Designer Gate Arrays Name Role Phone Marlon Levine MD Primary Care Provider + [phone] Reason for Visit * Reason Onset Date Comments Other 05/23/2011 new symptoms Encounter Details Date Type Department Care Team (Late st Contact Info) Description 05/23/2011 Telephone [place] [address] Natalie Tompkins RN Other (new symptoms) Social [...] on filedocumented in this encounter Care Teams Ic Designer Gate Arrays Relationship Specialty Start Date End Date Marlon Levine MD [address] [place] [address] PCP - General 02/16/10 06/19/12 documented as of this encounter
--- OUTSIDE RECORDS SUMMARY | 2024-04-12 00:29 | XMS_ITS | Encounter Summary ---
Author Organization [facility] Address [address] [place] [address] Care Team Providers Care Labour Market Economist Name Role Phone Marlon Levine MD Primary Care Provider [phone] Encounter Details Date Type Department Care Team (Latest Contact Info) Description 01/05/2016 11:29 EDT - 01/05/2016 23:59 EDT Hospital Encounter [address] [address] Izabella Moise MD Discharge Disposition: Home or [...] Code Departure Means Destination Home or Self [facility] documented in this encounter Plan of Treatment Not on file documented as of this encounter Visit Diagnoses Not on filedocumented in this encounter Care Teams Labour Market Economist Relationship Specialty Start Date End Date Marlon Levine MD [address] [place] [address] PCP - General 06/17/12 documented as of this encounter
--- OUTSIDE RECORDS SUMMARY | 2024-04-12 00:29 | XMS_ITS | Encounter Summary ---
Author Organization [facility] [place] [address] Care Team Providers Care Sleep Tech Name Role Phone Marlon Levine MD Primary Care Provider + [phone] Encounter Details Date Type Department Care Team (Late st Contact Info) Description 04/21/2011 Orders [place] [address] Jc Carpenter MD Social History Tobacco Use [...] Carpenter MD IMG FILM LIBRARY ORD ERABLES [facility] [address] [facility] [place] [address] documented in this encounter Visit Diagnoses Not on filedocumented in this encounter Care Teams Sleep Tech Relationship Specialty Start Date End Date Marlon Levine MD [address] [place] [address] PCP - General 02/16/10 06/19/12 documented as of this encounter
--- OUTSIDE RECORDS SUMMARY | 2024-04-12 00:29 | XMS_ITS | Encounter Summary ---
Author Organization [facility] Address [address] [place] [address] Care Team Providers Care Senior Ecologist Name Role Phone Marlon Levine MD Primary Care Provider [phone] Encounter Details Date Type Department Care Team (Late st Contact Info) Description 01/05/2016 Results Only [facility] [phone] Mary Alice Ruby MD [address] [place] [address] [address] [place] [address] Social History Tobacco Use Types Packs/Day Years [...] ? BILLIE JENNINGS ? Accession #: ? [id number] ? : ? 1970 (Age: 45) ??F [...] (ASCP) 01/06/2016 11:37 AM End of Report [facility] 01/05/2016 10:1 3 EDT 01/06/2016 10:13 EDT us Mary Alice Ruby MD PATHOLOGY ORDERABLES Final Resu lt [facility] [address] [place] [address] documented in this encounter Visit Diagnoses Not on filedocumented in this encounter Care Teams Senior Ecologist Relationship Specialty Start Date End Date Marlon Levine MD [address] [place] [address] PCP - General 06/17/12 documented as of this encounter
--- OUTSIDE RECORDS SUMMARY | 2024-04-12 00:29 | XMS_ITS | Encounter Summary ---
Author Organization [facility] [place] [address] Care Team Providers Care Recreational Director Name Role Phone Marlon Levine MD Primary Care Provider + [phone] Encounter Details Date Type Department Care Team (Late st Contact Info) Description 01/23/2008 Orders [place] [address] Margarita Joe MD [facility] [place] [address] Social History Tobacco Use Types Packs/Day Years [...] 5:21 PM EDT) Surgical Pathology Report [id number]- [id number] ? [facility] The signing pathologist has (i) examined [...] FISH. ??Direct analysis was performed using the Kilopass Kit. ??Slide adequacy and signal enumeration were [...] paraffin-embedded tissue sections are studied using the Home Dialysis Plus-Amplidata system technique with appropriate positive and negative controls. Block ? Antibody ?Result (Positive/Negative) A4 ? e-cadherin ? Positive in tumor. These immunohistochemical studies provide ancillary information and are used only in conjunction with standard diagnostic procedures. Diagnosis Specimen (s): ? 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 Tubular Differentiation: ? [...] ? NA Correlation Biopsies/Cytology ?? Needle bx -[id number], 08/07/07. . Diagnosis ?2006-left breast excision S--639. Other findings: ? NA Estrogen/Progestin receptors: ?? Performed on block A4 ?? ER immunoreactivity: ? Negative (see Diagnostic del toro*) ?? MS immunoreactivity: ? Negative (see Diagnostic del toro*) [...] Joe MD PATHOLOGY/CYTOLOGY ORDERABLES Performing Organization Address City/State/[facility] Co de Phone Number [facility] documented in this encounter Visit Diagnoses Not on filedocumented in this encounter Care Teams Recreational Director Relationship Specialty Start Date End Date Marlon Levine MD [address] [place] [address] PCP - General 06/20/12 documented as of this encounter
--- OUTSIDE RECORDS SUMMARY | 2024-04-12 00:29 | XMS_ITS | Encounter Summary ---
Author Organization [facility] [place] [address] Care Team Providers Care Paratransit Driver Name Role Phone Marlon Levine MD Primary Care Provider + [phone] Encounter Details Date Type Department Care Team (Late st Contact Info) Description 04/25/2011 Orders [place] [address] Jc Carpenter MD Social History Tobacco Use [...] Carpenter MD IMG FILM LIBRARY ORD ERABLES [facility] [address] [facility] [place] [address] documented in this encounter Visit Diagnoses Not on filedocumented in this encounter Care Teams Paratransit Driver Relationship Specialty Start Date End Date Marlon Levine MD [address] [place] [address] PCP - General 02/16/10 06/19/12 documented as of this encounter
--- OUTSIDE RECORDS SUMMARY | 2024-04-12 00:29 | XMS_ITS | Encounter Summary ---
Author Organization [facility] Address [facility] [place] [address] Care Team Providers Care Hogshead Weigher Name Role Phone Marlon Levine MD Primary Care Provider [phone] Reason for Visit * Reason Comments Breast Cancer Encounter Details Date Type Department Care Team (Late st Contact Info) Description 03/01/2011 1:00 PM EST Follow-Up Hematology Oncology at [address] [phone] John Beltran MD [facility] [place] [address] Breast cancer (Primary Dx) Discharge Disposition: Home [...] negative. Ten LNs were seen, all negative. ER/SC negative. HER2/cynthia negative. B. Four cycles of [...] There was no ALI or perineural invasion. ER/SC negative. HER2/cynthia negative by FISH. B. In [...] today, she feels well. 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 No areas of pain.Her [...] site documented in this encounter Care Teams Hogshead Weigher Relationship Specialty Start Date End Date Marlon Levine MD [address] [place] [address] PCP - General 02/16/10 06/19/12 documented as of this encounter
--- OUTSIDE RECORDS SUMMARY | 2024-04-12 00:29 | XMS_ITS | Encounter Summary ---
Author Organization [facility] [place] [address] Care Team Providers Care Nurse Practitioner Hospitalist Name Role Phone Marlon Levine MD Primary Care Provider + [phone] Encounter Details Date Type Department Care Team (Late st Contact Info) Description 06/28/2006 Orders Only [facility] [place] [phone] Angel Rosales MD OBSTETRICS & GYNECOLOGY Social [...] 11:47 AM EDT) Surgical Pathology Report [id number]- [id number] ? Location: The signing pathologist has (i) [...] tissue is bisected and entirely submitted. ??A medical detail representative section of the larger portion of [...] filedocumented in this encounter Care Teams Nurse Practitioner Hospitalist Relationship Specialty Start Date End Date Marlon Levine MD [address] [place] [address] PCP - General 06/20/12 documented as of this encounter
--- OUTSIDE RECORDS SUMMARY | 2024-04-12 00:29 | XMS_ITS | Encounter Summary ---
Author Organization [facility] Address [facility] [place] [address] Care Team Providers Care Field Trainer Name Role Phone Marlon Levine MD Primary Care Provider [phone] Encounter Details Date Type Department Care Team (Latest Contact Info) Description 05/30/2011 1:54 PM EST - 05/30/2011 7:06 PM EST Hospital Encounter Gastroenterology at [facility] [place] [address] Jag Tyler MD [facility] [place] [address] Discharge Disposition: Home Social History Tobacco Use [...] Monday, 8:00 am to 5:00pm, . The patient care secretary will need your name, medical problem, and date of the bronchoscopy. After 5pm call [phone] and ask for the pulmonary doctor non destructive testing engineer. * Patient Instructions* Jag Tyler MD - 05/30/2011 5:33 PM EST Please see Recommendations in the Provation procedure report which is documented in the procedural note in E-DH. * Attachments The following attachments cannot be sent through Care Everywhere. * UPPER GI ENDOSCOPY: WHAT TO EXPECT AT HOME (TANZANIAN) documented in this encounter Medications at Time [...] MD - 05/30/2011 5:18 PM EST [facility] Operative Note Patient Name: Antonia Lance : [id number] MR#: [id number] Case Date: 05/30/2011 Surgeon: Surgeon(s) and Role: [...] (05/30/2011 4:42 PM EST) UPPER ENDOSCOPIC ULTRASOUND [facility] Endoscopy Patient Name: Antonia Lance ? Procedure Date: 05/30/2011 4:42 PM ? Date of : 1970 ? Age: 40 ? Order #: [id number] ? Procedure: ? Upper EUS Indications: ? Acute pancreatitis, f/up acute ? pancreatitis Providers: ? Jag Tyler MD, Martha Nava, ? RN, Ivory Eubanks, Net Web Application Developer Referring : ?Marlon Levine MD, Roxana Ojeda [...] nausea) documented in this encounter Care Teams Field Trainer Relationship Specialty Start Date End Date Marlon Levine MD [address] [place] [address] PCP - General 02/16/10 06/19/12 documented as of this encounter
--- OUTSIDE RECORDS SUMMARY | 2024-04-12 00:29 | XMS_ITS | Encounter Summary ---
Author Organization [facility] [place] [address] Care Team Providers Care Bolt Man Name Role Phone Marlon Levine MD Primary Care Provider + [phone] Encounter Details Date Type Department Care Team (Late st Contact Info) Description 04/01/2005 Orders Only [place] [address] Ana Lilia Grubbs MD [facility] [address] [place] [address] Social History Tobacco Use Types Packs/Day Years [...] 9:06 AM EST) Surgical Pathology Report [id number]- [id number] ? Location: The signing pathologist has (i) examined the relevant preparation(s) for the specimen(s) and (ii) rendered or confirmed the diagnosis(es). . ?Pathology Surgical Pathology Final Report Clinical Information Specimen Submitted: CONSULTATION CASE A - 2 slides labeled [id number], collection date 02/15/05. B - 86 slides labeled [id number], collection date 03/02/05. C - 84 slides labeled [id number], collection date 03/10/05. [id number] Report to: Alfred Lakhani MD [facility] Surgical Pathology [address] ??[address] Gross Description [facility] pathology slide(s) are reviewed. ??Refer to Diagnosis and Specimen Submitted for specific case information. For the full text of the [facility] report(s) please refer to Non-DH Documentation Pathology in the Clinical Information System (CIS). Microscopic Description Slides reviewed, microscopic description not recorded. Diagnosis CONSULTATION CASE A - Needle biopsies: ?Left breast. ?Diagnosis: ?Normal breast with focal lymphocytic infiltrate ?Microcalcifica tions: ??NA Specimen (s): ? B - Left breast, excision; sentinel and ? non-sentnel lymph nodes [id number]) ?C - Left breast, re-excision [id number]) Histologic Type: ?Infiltrating ductal carcinoma Tumor Grade: ?High (High, Intermediate, Low) Jtyybz-Oysao-Qvz hardson Score: ??8 ?? Tubular Differentiation: ? [...] Ca (distance, RM): ??Final margins >1.0 cm (-[facility]08956) ?? DCIS (distance, RM): ? Final margins >1.0 cm ([facility]30358) Angiolymphatic Invasion: ?Identified (-[address] [place] [address] A28) . Diagnosis Perineural Invasion: ?Not identified Nipple Involvement: ? NA Correlation Biopsies/Cytolog y ?? NA Other findings: ? Fibrocystic disese witb benign ductal ? hyperplasia, adenosis, apocrine metaplasia ?and cysts Axillary lymph nodes: Total no. of nodes sampled: ?10 ??No. of non-sentinel nodes: ?1 (Specimen(s) -04 D) ?No. positive for carcinoma: 0 (H&E only) ??No. of sentinel nodes: ?9 (Specimen(s) -[id number] C,E,F,G,H,I,J) ?No. positive for carcinoma: 0 (H&E only) Estrogen/Progest in receptors: ?? Performed on block [id number] A27 ?? ER immunoreactivity : ? Negative by report ?? ID immunoreactivity : ? Negative by report HER2/cynthia [...] Lilia Grubbs MD PATHOLOGY/CYTOLO GY ORDERABLES [facility] documented in this encounter Visit Diagnoses Not on filedocumented in this encounter Care Teams Bolt Man Relationship Specialty Start Date End Date Marlon Levine MD [address] [place] [address] PCP - General 06/20/12 documented as of this encounter
--- OUTSIDE RECORDS SUMMARY | 2024-04-12 00:29 | XMS_ITS | Encounter Summary ---
Author Organization [facility] [place] [address] Care Team Providers Care Teletype Technician Name Role Phone Marlon Levine MD Primary Care Provider + [phone] Encounter Details Date Type Department Care Team (Late st Contact Info) Description 02/06/2008 Orders [place] [address] Margarita Joe MD [facility] DR GENERAL SURGERY [place] [id number] Social History Tobacco Use Types Packs/Day Years [...] 2:31 PM EST) Surgical Pathology Report [id number]- [id number] ? Location: [facility] The signing pathologist has (i) examined [...] 0.8 cm. Sections/Processing: ??(B1) three nodes. ??(T1) ??wenrer/TONI Microscopic Description Slides reviewed, microscopic description not [...] were performed . Microscopic Description using the Outerstuff GeneSearch ? Breast Lymph Node test. The sentinel lymph node and tested for the expression of mammoglobin, CK19 and PBGD using gene specific primers for amplification and probes for detection on the [employer] App Smartcycler. Interpretation: ??Positive expression of the mammoglobin [...] Joe MD PATHOLOGY/CYTOLOGY ORDERABLES Performing Organization Address City/State/[facility] Co ri Phone Number [facility] documented in this encounter Visit Diagnoses Not on filedocumented in this encounter Care Teams Teletype Technician Relationship Specialty Start Date End Date Marlon Levine MD [address] [place] [address] PCP - General 06/20/12 documented as of this encounter
--- OUTSIDE RECORDS SUMMARY | 2024-04-12 00:29 | XMS_ITS | Encounter Summary ---
Author Organization [facility] Address [address] [place] [address] Care Team Providers Care Pharmacist In Charge Owner Name Role Phone Marlon Levine MD Primary Care Provider [phone] Encounter Details Date Type Department Care Team (Late st Contact Info) Description 01/19/2018 Results Only [facility] [phone] Anat Hawthorne, STITCHER FEEDER [address] [facility] [address] [place] [address] Social History Tobacco Use Types Packs/Day Years [...] ? BILLIE JENNINGS ? Accession #: ? [id number] ? : ? 1970 (Age: 47) ??F ?Collect Date: ? 01/19/2018 ? Location: ? [facility] ? Receive Date: ? 01/23/2018 ? Provider: ANAT HAWTHORNE STITCHER FEEDER Copy to: ? Final Report SPECIMEN ADEQUACY ? Satisfactory for Evaluation - transformation zone component present GENERAL CATEGORIZATION ? Epithelial Cell Abnormality INTERPRETATION ? Squamous Cell Abnormality - Atypical squamous cells, undetermined significance (ASC-US). EDUCATIONAL NOTES/RECOMMENDAT IONS ? [facility] recommends following ASCCP's 2012 Updated Consensus Guidelines for the Management of Abnormal Cervical Cancer Screening Tests and Cancer Precursors (JLGTD, 2013; 17(5):S1-S27). ??Consensus guidelines are available online at www.asccp.org. Previous Gynecologic Pathology: HSIL: [id number] DANTE II-III: 2016 Other: Additional clinical information: [...] types 16,18,31,33,35, 39,45,51,52,56,58 ,59,66, and 68 by emery wheel molder mediated amplification. Comments Document reviewed and electronically signed by: ? System Interface ? Report date: 02/02/2018 By the signature above, the attending physician certifies that he/she has personally conducted a gross and/or microscopic examination of the described specimens and rendered or confirmed the above diagnosis. End of Report [facility] 01/19/2018 01/23/2018 us Anat Hawthorne STITCHER FEEDER PATHOLOGY ORDERABLES Verona caldwell Result [facility] [address] [place] [address] documented in this encounter Visit Diagnoses Not on filedocumented in this encounter Care Teams Pharmacist In Charge Owner Relationship Specialty Start Date End Date Marlon Levine MD [address] [place] [address] PCP - General 06/17/12 documented as of this encounter
--- OUTSIDE RECORDS SUMMARY | 2024-04-12 00:29 | XMS_ITS | Encounter Summary ---
Author Organization [facility] Address [address] [place] [address] Care Team Providers Care Spinning Lathe Operator Hydraulic Name Role Phone Marlon Levine MD Primary Care Provider [phone] Encounter Details Date Type Department Care Team (Late st Contact Info) Description 01/06/2020 Lab Requisition [facility] Pathology & Laboratory Medicine - [facility] [address] [place] [address] Mauro Garcia MD [address] [place] [address] Encounter for other general examination Social History [...] types, PCR Negative Negative 01/14/2020 15:15 EDT [facility] Comment:No E6 or E7 mRNA is detected from HPV types 16,18,31,33,35,39,45,51,52,56,58,59,66, and 68 by special projects manager mediated amplification. Papanicolaou smear specimen (specimen) CERVIX UTERI STRUCTURE / Unknown 01/03/2020 13:45 EDT 01/13/2020 11:17 EDT us Mauro Garcia MD MICROBIOLOGY - GENERAL ORDERABLE S Final Result [facility] [address] [place] [address] * PAP TEST (01/03/2020 13:45 EDT) Specimens A. Cervix and/or Endocervix , ThinPrep Imaging System with Manual Evaluation 01/14/2020 15:15 [facility] Specimen Adequacy Satisfactory for Evaluation - transformation zone component present 01/14/2020 15:15 [facility] General Categorization Negative for intraepithelial lesion or malignancy 01/14/2020 15:15 [facility] Attestation . 01/14/2020 15:15 [facility] at 1515 Clinical History See below 01/14/20 15:15 [facility] HPV The result for the Human Papillomavirus (HPV) Detection-High Risk Types is Negative. No E6 or E7 mRNA is detected from HPV types 16,18,31,33,35,39 ,45,51,52,56,58,5 9,66, and 68 by special projects manager mediated amplification.Clarissa ting was performed on specimen [id number] and was resulted on 01/14/2020 1507 EDT by MITCHEL, LAB INSTRUMENT RESULTS IN 01/14/2020 15:15 T [facility] Performing Lab [facility] 01/14/2020 15:15 EDT [facility] Scanned Images 01/14/2020 15:15 EDT [facility] Papanicolaou smear specimen (specimen) CERVIX UTERI STRUCTURE / Unknown 01/03/2020 13:45 EDT 01/06/2020 11:03 EDT us Mauro Garcia MD PATHOLOGY ORDERABLES Final Resul t [facility] [address] [place] [address] documented in this encounter Visit Diagnoses Diagnosis Encounter for other general examination documented in this encounter Care Teams Spinning Lathe Operator Hydraulic Relationship Specialty Start Date End Date Marlon Levine MD [address] [place] [address] PCP - General 06/17/12 documented as of this encounter
--- OUTSIDE RECORDS SUMMARY | 2024-04-12 00:29 | XMS_ITS | Encounter Summary ---
Author [facility] [place] [address] Care Team Providers Care Food Preparation Kitchen Aide Name Role Phone Unavailable Primary Care Provider Unavailabl e Encounter Details Date Type Department Care Team (Late st Contact Info) Description 02/10/2010 1:30 PM EST Follow-[place] [address] AugustN Social History Tobacco Use Types Packs/Day Years [...]
--- OUTSIDE RECORDS SUMMARY | 2024-04-12 00:29 | XMS_ITS | Encounter Summary ---
Author Organization [facility] Address [address] [place] [address] Care Team Providers Care Research Program Coordinator Name Role Phone Marlon Levine MD Primary Care Provider Encounter Details Date Type Department Care Team (Latest Contact Info) Description 01/19/2018 14:57 EDT - 01/19/2018 23:59 EDT Hospital Encounter [address] [address] Izabella Moise MD Discharge Disposition: Home or [...] on filedocumented in this encounter Care Teams Research Program Coordinator Relationship Specialty Start Date End Date Marlon Levine MD [address] [place] [address] PCP - General 06/17/12 documented as of this encounter
--- OUTSIDE RECORDS SUMMARY | 2024-04-12 00:29 | XMS_ITS | Encounter Summary ---
Author Organization [facility] Address [facility] [place] [address] Care Team Providers Care Gutter Hanger Name Role Phone Marlon Levine MD Primary Care Provider [phone] Encounter Details Date Type Department Care Team (Late st Contact Info) Description 05/30/2011 4:00 PM EST - 05/30/2011 5:00 PM EST Surgery [place] [address] Jag Tyler MD [facility] [place] [address] UPPER EUS- ENDOSCOPIC ULTRASOUND (WRVU 3.47) Social [...] Monday, 8:00 am to 5:00pm, . The elementary secretary will need your name, medical problem, and date of the bronchoscopy. After 5pm call [phone] and ask for the pulmonary doctor condenser operator. * Patient Instructions* Jag Tyler MD - 05/30/2011 5:33 PM EST Please see Recommendations in the Provation procedure report which is documented in the procedural note in [facility]. * Attachments The following attachments cannot be sent through Care Everywhere. * UPPER GI ENDOSCOPY: WHAT TO EXPECT AT HOME (TRINIDADIAN) documented in this encounter Medications at Time [...] Tyler MD - 05/30/2011 5:18 PM EST [facility] Operative Note Patient Name: Antonia Lance : [id number] MR#: [id number] Case Date: 05/30/2011 Surgeon: Surgeon(s) and Role: [...] (05/30/2011 4:42 PM EST) UPPER ENDOSCOPIC ULTRASOUND [facility] Endoscopy Patient Name: Antonia Lance ? Procedure Date: 05/30/2011 4:42 PM ? Date of : 1970 ? Age: 40 ? Order #: [id number] ? Procedure: ? Upper EUS Indications: ? Acute pancreatitis, f/up acute ? pancreatitis Providers: ? Jag Tyler MD, Martha Nava, ? RN, Ivory Eubanks, Recordist Chief Referring : ?Marlon Levine MD, Roxana Ojeda [...] nausea) documented in this encounter Care Teams Gutter Hanger Relationship Specialty Start Date End Date Marlon Levine MD [address] [place] [address] PCP - General 02/16/10 06/19/12 documented as of this encounter
--- OUTSIDE RECORDS SUMMARY | 2024-04-12 00:29 | XMS_ITS | Encounter Summary ---
[place] [address] Care Team Providers Care Racing Secretary Name Role Phone Unavailable Primary Care Provider [...]
--- OUTSIDE RECORDS SUMMARY | 2024-04-12 00:29 | XMS_ITS | Encounter Summary ---
Author Organization [facility] [place] [place] [address] Care Team Providers Care Bundle Helper Name Role Phone Marlon Levine MD Primary Care Provider [phone] Reason for Visit * Reason Comments GI Problem Encounter Details Date Type Department Care Team (Late st Contact Info) Description 05/18/2011 10:00 AM EST Office [place] [address] Jonathan Roman MD [facility] [place] [address] Pancreatitis (Primary Dx) Discharge Disposition: Home Social [...] nausea or vomiting. She was evaluated at [facility] for these symptoms with labs revealing lipase 53,322, Albumin 4.1, Tb 1.9, Alk Phos 154, AST 318, ALT 414. A CT demonstrated aprominent pancreatic head with peripancreatic stranding consistent with pancreatitis with an otherwise normal biliary tree. Ms. Lance was admitted to [facility] for approximately one week and eventually transferred to [facility] for failure to improve. While at [facility] she underwent RUQ US which demonstrated no evidence of choledocholithiasis and otherwise normal biliary tree. Lab testing was notable for elevated LFTs as above, normal calcium, normal triglycerides. History is additionally notable for the absence of alcohol use, absence of any trauma, recent travel, recent new meds or herbals, or any prior personal history of pancreatitis. Upon transfer to [facility], a CT PE protocol as obtained given tachypnea, hypoxia, and tachycardia which demonstrated no evidence of PE, did demonstrate bilateral pleural effusions related to recent pancreatitis. She eventually improved with ongoing supportive care including IV fluids, analgesia. Repeat LFTs at [facility] were notably normal Since transfer Ms. Lance [...] with lumpectomy with chemo/XRT Faustin Gilberto in [facility] - experienced recurrence in approximately 2008 on [...] Social History: Ms. Lance currently lives in [place], [place] with her and 17 year old [...] 12:05 PM EST) Triglyceride 72 <=149 mg/dL [facility] Comment: Reference Range: Normal triglycerides: ??<150 mg/dL Borderline high: ??150-199 mg/dL High: ??200-499 mg/dL Very high: ??>px=709 mg/dL JADON 2001; 28519):[id number] Blood specimen (specimen) 05/18/2011 12:05 PM EST 05/18/2011 12:12 PM EST Narrative Resulting Agency Comment Spec In Lab Zach Paulson MD CHEMISTRY ORDERABLES Performing Organization Address [facility] de Phone Number [facility] * IgG 4 (05/18/2011 12:05 PM EST) IgG 4 14.8 4.0 - 86.0 mg/dL [facility] Comment: Test Performed by [facility], [address] [place], [place] Deandre Dominguez M.D., Ph.D., Director of Laboratories , [place] [id number] Blood specimen (specimen) 05/18/2011 12:05 PM EST 05/18/2011 2:37 PM EST Narrative Resulting Agency Comment Spec In Lab Zach Paulson MD IMMUNOLOGY ORDERABLE S Performing Organization Address [facility] Co de Phone Number [facility] * IgA (05/18/2011 12:05 PM EST) IgA 215 70 - 400 mg/dL [facility] Blood specimen (specimen) 05/18/2011 12:05 PM EST 05/18/2011 12:12 PM EST Narrative Resulting Agency Comment Spec In Lab Zach Paulson MD CHEMISTRY ORDERABLES Performing Organization Address [facility] Co de Phone Number [facility] * Tissue transglutaminase, IgA (05/18/2011 12:05 PM EST) TTG IgA Ab <4.0 <=3.9 u/ml [facility] Comment: Result Interpretation: Negative: ?<4 U/mL Weak Positive: ??4-10 U/mL Positive: ?>10 U/mL Blood specimen (specimen) 05/18/2011 12:05 PM EST 05/19/2011 8:11 AM EST Narrative Resulting Agency Comment Spec In Lab Zach Paulson MD IMMUNOLOGY ORDERABLE S Performing Organization Address [facility] de Phone Number MENDEL AVERY documented in this encounter Visit Diagnoses Diagnosis Pancreatitis- Primary Acute pancreatitis Pancreatitis Acute pancreatitis documented in this encounter Care Teams Bundle Helper Relationship Specialty Start Date End Date Marlon Levine MD [address] [place] [address] PCP - General 02/16/10 06/19/12 documented as of this encounter
--- OUTSIDE RECORDS SUMMARY | 2024-04-12 00:29 | XMS_ITS | Encounter Summary ---
Author Organization [facility] Address [facility] [place] [address] Care Team Providers Care Deep Submergence Vehicle Operator Name Role Phone Marlon Levine MD Primary Care Provider [phone] Reason for Visit * Reason Onset Date Comments Other 10/07/2010 appt with nutrit ionist Encounter Details Date Type Department Care Team (Late st Contact Info) Description 10/07/2010 Telephone Hematology Oncology at [address] [address] John Beltran MD [facility] [place] [address] Other (appt with clerical support specialist) Social History Tobacco Use Types Packs/Day Years [...] does not want and appt with our clerical support specialist. She decided to keep a diary on her own and her and can see how she is doing at her 4 m f/u. documented in this encounter Plan of Treatment Not on file documented as of this encounter Visit Diagnoses Not on filedocumented in this encounter Care Teams Deep Submergence Vehicle Operator Relationship Specialty Start Date End Date Marlon Levine MD [address] [place] [address] PCP - General 02/16/10 06/19/12 documented as of this encounter
--- OUTSIDE RECORDS SUMMARY | 2024-04-12 00:29 | XMS_ITS | Encounter Summary ---
Author Organization [facility] [place] [address] Care Team Providers Care Web Design Specialist Name Role Phone Marlon Levine MD Primary Care Provider [phone] Encounter Details Date Type Department Care Team (Late st Contact Info) Description 04/21/2010 9:30 AM EST [place] [address] Chavez Hinkle MD Discharge Disposition: Home Social History Tobacco [...] filedocumented in this encounter Care Teams Web Design Specialist Relationship Specialty Start Date End Date Marlon Levine MD [address] [place] [address] PCP - General 02/16/10 06/19/12 documented as of this encounter
--- OUTSIDE RECORDS SUMMARY | 2024-04-12 00:29 | XMS_ITS | Encounter Summary ---
Author Organization [facility] Address [address] [place] [address] Care Team Providers Care Senior Project Manager Name Role Phone Marlon Levine MD Primary Care Provider [phone] Reason for Visit * Reason Comments Genetic Evaluation Telemedicine Video Visit Encounter Details Date Type Department Care Team (Late st Contact Info) Description 07/12/2022 12:00 EDT Telemedicine [facility] Hematology & Oncology - [facility] [address] [place], [place] [address] Zuleika Nash, MS [address] [place], [place] [address] Encounter for nonprocreative genetic counseling (Primary Dx); [...] ER negative. Antonia [facility]have genetic testing [facility] in 2005 for BRCA 1 and [...] recently started seeing dermatology. Antonia lives in [facility] [place] and her medical care is through [facility]. I reviewed with Antonia and her sister options for extended genetic testing using a multi gene panel.Following a discussion of the risk benefits and limitations Antonia was interested in proceeding witha 47 gene Common hereditary cancer panel through [facility]. She requested that a saliva collection kit [...] breast documented in this encounter Care Teams Senior Project Manager Relationship Specialty Start Date End Date Marlon Levine MD [address] [place] [address] PCP - General 06/17/12 documented as of this encounter
--- OUTSIDE RECORDS SUMMARY | 2024-04-12 00:29 | XMS_ITS | Encounter Summary ---
Author Organization [facility] Address [address] [place] [address] Care Team Providers Care Quality Assurance Technician Name Role Phone Marlon Levine MD Primary Care Provider [phone] Reason for Visit * Reason Onset Date Comments Results 07/28/2022 Encounter Details Date Type Department Care Team (Late st Contact Info) Description 07/28/2022 Telephone [facility] Cancer Center Hematology & Oncology - [facility] [address] [place], [place] [address] Dick Burt MS [address] [place], [place] [id number] Results Social History Tobacco Use Types Packs/Day [...] Encounter - Dick Burt MS - 07/28/2022 3515 EDT Spoke to Antonia regarding genetic test [...] in this encounter Care Teams Quality Assurance Technician Relationship Specialty Start Date End Date Marlon Levine MD [address] [place] [address] PCP - General 06/17/12 documented as of this encounter
--- OUTSIDE RECORDS SUMMARY | 2024-04-12 00:29 | XMS_ITS | Encounter Summary ---
Author Organization [facility] Address [address] [place] [address] Care Team Providers Care Centrifugal Machine Tender Name Role Phone Marlon Levine MD Primary Care Provider [phone] Encounter Details Date Type Department Care Team (Late st Contact Info) Description 10/25/2019 Lab Requisition [facility] Pathology & Laboratory Medicine - [facility] [address] [place] [address] Outr Resulting Lab, Provider Social History Tobacco [...] 6.3 - 8.2 g/dL 10/28/2019 12:23 EDT [facility] Albumin % 65.3 55.8 - 66.1 % 10/28/2019 12:23 EDT [facility] Alpha-1 % 5.3(H) 2.9 - 4.9 % 10/28/2019 12:23 EDT [facility] Alpha-2 % 9.4 7.1 - 11.8 % 10/28/2019 12:23 EDT [facility] Beta % 10.5 8.4 - 13.1 % 10/28/2019 12:23 EDT [facility] Gamma % 9.5(L) 11.1 - 18.8 % 10/28/2019 12:23 EDT [facility] SPEP Comment No apparent monoclonal protein seen on serum electrophoresis 10/28/2019 12:23 T [facility] Comment:See scanned/suppleme ntary report. Blood VENOUS BLOOD / Unknown 10/25/2019 12:21 EDT 10/25/2019 21:20 EDT us Provider Outr Resulting Lab CHEMISTRY & BLOOD GA S ORDERABLES Final Result [facility] [address] [place] [address] documented in this encounter Visit Diagnoses Not on filedocumented in this encounter Care Teams Centrifugal Machine Tender Relationship Specialty Start Date End Date Marlon Levine MD [address] [place] [address] PCP - General 06/17/12 documented as of this encounter
--- OUTSIDE RECORDS SUMMARY | 2024-04-12 00:29 | XMS_ITS | Encounter Summary ---
Author Organization [facility] [place] [address] Care Team Providers Care Second Class Welder Name Role Phone Marlon Levine MD Primary Care Provider [phone] Reason for Visit * Reason Comments Follow-up Encounter Details Date Type Department Care Team (Late st Contact Info) Description 10/06/2010 2:30 PM EDT Follow-Up Hematology Oncology at [address] [id number] Ginna August Breast cancer (Primary Dx) Discharge Disposition: Home [...] documented in this encounter Progress Notes * Ginna August, MARINE PAINTER - 10/06/2010 3:05 PM EDT Hematology/Oncology Outreach Clinic - [facility] [place], [address] () - [phone] (fax) ESTABLISHED PATIENT EVALUATION: Problem List: 1. [...] clinic, and she will e seen by surger. Weight management - Follow up with [facility] [...] site documented in this encounter Care Teams Second Class Welder Relationship Specialty Start Date End Date Marlon Levine MD [address] [place] [address] PCP - General 02/16/10 06/19/12 documented as of this encounter
--- OUTSIDE RECORDS SUMMARY | 2024-04-12 00:29 | XMS_ITS | Clinical Summary ---
Author Organization [facility] Address [address] [place] [address] Care Team Providers Care Supervisor Edging Name Role Phone Marlon Levine MD Primary Care Provider [phone] Allergies Active Allergy Reactions Criticality Noted Date [...] Vaccine (2023- season) 2023 Insurance MEDICAID [place] Care Teams Supervisor Edging Relationship Specialty Start Date End Date Marlon Levine MD [address] [place] [address] PCP - General 06/17/12
--- OUTSIDE RECORDS SUMMARY | 2024-04-12 00:29 | XMS_ITS | Encounter Summary ---
Author Organization [facility] Address [address] [place] [address] Care Team Providers Care Control Clerk Subassembly Name Role Phone Marlon Levine MD Primary Care Provider [phone] Reason for Visit * Reason Onset Date Comments Appointment Related 04/26/2022 Encounter Details Date Type Department Care Team (Late st Contact Info) Description 04/26/2022 Telephone [facility] Cancer Center Hematology & Oncology - [address] [address] Fcp, Provider, Appointment Related Social History Tobacco [...] on filedocumented in this encounter Care Teams Control Clerk Subassembly Relationship Specialty Start Date End Date Marlon Levine MD [address] [place] [address] PCP - General 06/17/12 documented as of this encounter
--- OUTSIDE RECORDS SUMMARY | 2024-04-12 00:29 | XMS_ITS | Encounter Summary ---
Author Organization [facility] [place] [address] Care Team Providers Care Nurse Informaticist Name Role Phone Marlon Levine MD Primary Care Provider [phone] Encounter Details Date Type Department Care Team (Late st Contact Info) Description 04/27/2011 External Results XRay at [address] [place] [address] Reynaldo Bolton MD EMERGENCY DEPT [address] [facility] [address] [place] [address] Social History Tobacco Use Types Packs/Day Years [...] filedocumented in this encounter Care Teams Nurse Informaticist Relationship Specialty Start Date End Date Marlon Levine MD [address] [place] [address] PCP - General 02/16/10 06/19/12 documented as of this encounter
--- OUTSIDE RECORDS SUMMARY | 2024-04-12 00:29 | XMS_ITS | Encounter Summary ---
Author Organization [facility] Address [facility] [place] [address] Care Team Providers Care Car Oiler Name Role Phone Marlon Levine MD Primary Care Provider [phone] Encounter Details Date Type Department Care Team (Late st Contact Info) Description 06/08/2010 2:30 PM EDT Follow-Up Hematology Oncology at [address] [phone] John Beltran MD [facility] [place] [address] Discharge Disposition: Home Social History Tobacco Use [...] on filedocumented in this encounter Care Teams Car Oiler Relationship Specialty Start Date End Date Marlon Levine MD [address] [place] [address] PCP - General 02/16/10 06/19/12 documented as of this encounter
--- OUTSIDE RECORDS SUMMARY | 2024-04-12 00:29 | XMS_ITS | Encounter Summary ---
Author Organization [facility] Address [facility] [place] [address] Care Team Providers Care Chief Of Pediatric Urology Name Role Phone Marlon Levine MD Primary Care Provider [phone] Encounter Details Date Type Department Care Team (Late st Contact Info) Description 08/07/2007 Orders [place] [address] Leonel Dickerson MD Social History Tobacco Use Types Packs/Day [...] 1:01 PM EDT) Surgical Pathology Report [id number] ? Location: The signing pathologist has (i) [...] PM EDT Leonel Dickerson MD PATHOLOGY/CYTOLOGY O LYNDAERABHUPENDRA MENDEL AVERY documented in this encounter Visit Diagnoses Not on filedocumented in this encounter Care Teams Chief Of Pediatric Urology Relationship Specialty Start Date End Date Marlon Levine MD [address] [place] [address] PCP - General 06/20/12 documented as of this encounter
--- OUTSIDE RECORDS SUMMARY | 2024-04-12 00:29 | XMS_ITS | Encounter Summary ---
Author Organization [facility] [place] [address] Care Team Providers Care Health Underwriter Name Role Phone Marlon Levine MD Primary Care Provider + [phone] Reason for Visit * Reason Comments Follow-up Encounter Details Date Type Department Care Team (Late st Contact Info) Description 04/15/2011 11:00 AM EST Follow-[place] [phone] Ana Lilia Soria APRN Breast cancer (Primary Dx) Discharge Disposition: Home Social History Tobacco Use Types Packs/Day Years Used Date Smoking Tobacco: Never Sex and Gender Information Value Date Recorded Sex Assigned at Not on file Gender Identity Not on file Sexual Orientation Not on file documented as of this encounter Progress Notes * Ana Lilia Soria APRN - 04/15/2011 11:21 AM EST Antonia is [...] Ten lymph nodes were negative. Thetumor was ER/VA-negative and HER2-negative. Antonia went on to adjuvant [...] metaplastic spindle cell features Tumor Grade: High Mmwjyb-Ujzzh-Lgwjmvcvnf Score: 8 Tubular Differentiation: 3 Mitotic Rate: [...] Nipple Involvement: NA Correlation Biopsies/Cytology Needle bx [id number], 08/07/07. 2005-left breast excision [id number]. Other findings: NA Estrogen/Progestin receptors: Performed on block A4 ER immunoreactivity: Negative (see Diagnostic del toro*) VA immunoreactivity: Negative (see Diagnostic del toro*) HER2 negative [place] node excision was without evidence of metastatic [...] site documented in this encounter Care Teams Health Underwriter Relationship Specialty Start Date End Date Marlon Levine MD [address] [place] [address] PCP - General 02/16/10 06/19/12 documented as of this encounter
--- OUTSIDE RECORDS SUMMARY | 2024-04-12 00:29 | XMS_ITS | Encounter Summary ---
Author Organization [facility] Address [address] [place] [address] Care Team Providers Care Casino Cage Manager Name Role Phone Marlon Levine MD Primary Care Provider [phone] Encounter Details Date Type Department Care Team (Late st Contact Info) Description 11/16/2015 Results Only [facility] [phone] Mary Alice Ruby MD [address] [place] [address] [address] [place] [address] Social History Tobacco Use Types [...] ? BILLIE JENNINGS ? Accession #: ? [id number] ? : ? 1970 (Age: 45) ??F [...] Submitted in toto in C1 following filtration. Aiedn Bobby 11/17/2015 10:42 AM End of Report [facility] 11/16/2015 8:48 EDT 11/17/2015 8:48 EDT us Mary Alice Ruby MD PATHOLOGY ORDERABLES Final Resu lt [facility] [address] [place] [address] documented in this encounter Visit Diagnoses Not on filedocumented in this encounter Care Teams Casino Cage Manager Relationship Specialty Start Date End Date Marlon Levine MD [address] [place] [address] PCP - General 06/17/12 documented as of this encounter
--- OUTSIDE RECORDS SUMMARY | 2024-04-12 00:29 | XMS_ITS | Encounter Summary ---
Author Organization [facility] Address [address] [place] [address] Care Team Providers Care Broadband Engineer Name Role Phone Marlon Levine MD Primary Care Provider [phone] Encounter Details Date Type Department Care Team (Latest Contact Info) Description 11/16/2015 8:55 EDT - 11/16/2015 23:59 EDT Hospital Encounter [address] [address] Izabella Moise MD Discharge Disposition: Home or [...] on filedocumented in this encounter Care Teams Broadband Engineer Relationship Specialty Start Date End Date Marlon Levine MD [address] [place] [address] PCP - General 06/17/12 documented as of this encounter
--- OUTSIDE RECORDS SUMMARY | 2024-04-12 00:29 | XMS_ITS | Encounter Summary ---
[place] [address] Care Team Providers Care Data Engineer Name Role Phone Marlon Levine MD Primary Care Provider [phone] Encounter Details Date Type Department Care Team (Late st Contact Info) Description 04/21/2010 2:00 PM EST Procedure visit [place] [address] Social History Tobacco Use Types Packs/Day Years Used Date Smoking Tobacco: Never Assessed Sex and Gender Information Value Date Recorded Sex Assigned at Not on file Gender Identity Not on file Sexual Orientation Not on file documented as of this encounter Plan of Treatment Not on file documented as of this encounter Visit Diagnoses Not on filedocumented in this encounter Care Teams Data Engineer Relationship Specialty Start Date End Date Marlon Levine MD [address] [place] [address] PCP - General 02/16/10 06/19/12 documented as of this encounter
--- OUTSIDE RECORDS SUMMARY | 2024-04-12 00:29 | XMS_ITS | Encounter Summary ---
Author Organization [facility] [place] [address] Care Team Providers Care Woodwind Instrument Repairer Name Role Phone Marlon Levine MD Primary Care Provider [phone] Encounter Details Date Type Department Care Team (Late st Contact Info) Description 04/21/2011 Orders [place] [address] Jc Carpenter MD Social History Tobacco Use [...] Carpenter MD IMG FILM LIBRARY ORD ERABLES [facility] [address] [facility] [place] [address] documented in this encounter Visit Diagnoses Not on filedocumented in this encounter Care Teams Woodwind Instrument Repairer Relationship Specialty Start Date End Date Marlon Levine MD [address] [place] [address] PCP - General 02/16/10 06/19/12 documented as of this encounter
--- OUTSIDE RECORDS SUMMARY | 2024-04-12 00:29 | XMS_ITS | Encounter Summary ---
Author Organization [facility] [place] [address] Care Team Providers Care Claim Investigator Name Role Phone Marlon Levine MD Primary Care Provider + [phone] Encounter Details Date Type Department Care Team (Late st Contact Info) Description 04/21/2010 9:30 AM EST Follow-Up Neurology at [facility] [place] [address] [address] [place] [address] Social History Tobacco Use Types Packs/Day Years Used Date Smoking Tobacco: Never Assessed Sex and Gender Information Value Date Recorded Sex Assigned at Not on file Gender Identity Not on file Sexual Orientation Not on file documented as of this encounter Plan of Treatment Not on file documented as of this encounter Visit Diagnoses Not on filedocumented in this encounter Care Teams Claim Investigator Relationship Specialty Start Date End Date Marlon Levine MD [address] [place] [address] PCP - General 02/16/10 06/19/12 documented as of this encounter
--- OUTSIDE RECORDS SUMMARY | 2024-04-12 00:29 | XMS_ITS | Encounter Summary ---
Author Organization [facility] Address [address] [place] [address] Care Team Providers Care Heating And Ventilating Worker Name Role Phone Marlon Levine MD Primary Care Provider [phone] Encounter Details Date Type Department Care Team (Late st Contact Info) Description 03/02/2018 Results Only [facility] [phone] Svetlana Cavanaugh MD [address] [place] [address] Social History Tobacco Use Types [...] ? BILLIE JENNINGS ? Accession #: ? [id number] ? : ? 1970 (Age: 47) ??F ? Collect Date: ? 03/02/2018 ? Location: ? [facility] ? Receive Date: ? 03/02/2018 ? Provider: SVETLANA CAVANAUGH MD Copy to: ANAT STANTON LOCK MASTER ? Final Pathologic Diagnosis: ENDOCERVIX, CURETTAGE: - [...] Hercules 03/03/2018 10:00 AM End of Report [facility] 03/02/2018 16:4 6 EST 03/02/2018 16:46 EST us Svetlana Cavanaugh MD PATHOLOGY ORDERABLES Final Resul t [facility] [address] [place] [address] documented in this encounter Visit Diagnoses Not on filedocumented in this encounter Care Teams Heating And Ventilating Worker Relationship Specialty Start Date End Date Marlon Levine MD [address] [place] [address] PCP - General 06/17/12 documented as of this encounter
--- OUTSIDE RECORDS SUMMARY | 2024-04-12 00:29 | XMS_ITS | Encounter Summary ---
Author Organization [facility] Address [facility] [place] [address] Care Team Providers Care Engineering Intern Name Role Phone Marlon Levine MD Primary Care Provider [phone] Encounter Details Date Type Department Care Team (Latest Contact Info) Description 04/27/2011 3:49 PM EST - 04/30/2011 3:09 PM EST Hospital Encounter [address] [place] [phone] Deandre Tuttle MD [facility] [place] [address] Juvenal Lea MD [address] [place] [address] Breast cancer Discharge Disposition: Home Social History [...] call Dr. Levine Your inpatient doctors at [facility] were: Marshal Shen, Jayden, and Julius Medications: - If you still have RESIDUAL pains you can try ibuprofen or tylenol [id number]-[id number]. Any new pain or worsening pain should [...] spent <30 minutes (Day of Discharge Code 67540) involved in the final examination of the [...] Medicine Admitted 04/27/2011 Progress Note Team Pager #[phone] ID: Antonia Lance is a 40 y.o. female, hx breast CA, now with recent resolved pancreatitis and large bilateral pleural effusions Last 24 ?? Attempt thora, unsuccessful ?? No PTX on f/u CXR ?? O2 requirement unchanged ?? Scheduled tylenol and ibuprofen Subjective ?? Feeling much better ?? Appetite returning, drinking clears w/o c/o ?? Not needing supervisor chemical ?? Still with pain around site of [...] PHOS -- -- 2.6 Medications ??? DISCONTD: BOTTOMING ROOM SUPERVISOR [place] ??? magnesium sulfate 2 g [...] DISCONTD: HYDROmorphone ??? DISCONTD: naloxone ??? DISCONTD: BOTTOMING ROOM SUPERVISOR [place] Microbiology ?? none Imaging / Procedures CXR - no PTX. Effusions still prominent Assessment & Plan 40 y/o female, previously healthy, with recent admission for pancreatitis, and unresolved pain. Overall much better. Will d/c magallon, attempt advance diet. D/c BOTTOMING ROOM SUPERVISOR. Hope can get rid of any need [...] Medicine Admitted 04/27/2011 Progress Note Team Pager #[phone] ID: Antonia Lance is a 40 y.o. female, hx breast CA, now with recent resolved pancreatitis and large bilateral pleural effusions Last 24 ?? Admit medicine ?? CT chest showed no PE, but large bilat effusions seen ?? O2 requirement unchanged ?? 0.9 mg dilaudid BOTTOMING ROOM SUPERVISOR used overnight Subjective ?? Feeling less groggy [...] (04/28/11 0400) ??? HYDROmorphone ??? naloxone ??? BOTTOMING ROOM SUPERVISOR [place] Microbiology ?? none Imaging / [...] 40 y/o male presents as transfer from [facility] for unresolving abd pain after pancreatitis. Pt originally presented 04/21, having had abd pain for 2 wks. Originally thought in nature, with neg pelvic w/u. Upon admission, found lipase 53k, and treated for pancreatitis. Pain control and IVFand antiemetics given. Pt very sensitive to narcotics, requiring reversal with narcan after apneic.[place] improved in coming days, with resolving lipase. [...] chemoRT x2 - all nodes neg - ER/OR neg, Her2/cynthia neg - adjuvant CMF x6 [...] newbecause previously high 90s on RA at [facility], and tachycardia, though no evidence of DVT [...] Patient Positioning: Sitting upright. Hand Hygiene: The analytics associate did perform proper hand hygiene prior to [...] 40 y/o male presents as transfer from [facility] for unresolving abd pain after pancreatitis. Pt originally presented 04/21, having had abd pain for 2 wks. Originally thought in nature, with neg pelvic w/u. Upon admission, found lipase 53k, and treated for pancreatitis. Pain control and IVFand antiemetics given. Pt very sensitive to narcotics, requiring reversal with narcan after apneic.[place] improved in coming days, with resolving lipase. [...] Course: Pancreatitis -- The patient's data from [facility] were reviewed. Lipase was rechecked and was normal. Itseemed the patient's pancreatitis had resolved after appropriate management at [facility]. The etiology remains uncertain, as there was [...] fluid resuscitation and inflammatory state (all at [facility]). Bedside thoracentesis was attempted but was unsuccessful [...] call Dr. Levine Your inpatient doctors at [facility] were: Marshal Shen, Jayden, and Julius Medications: - If you still have RESIDUAL pains you can try ibuprofen or tylenol fidb-qox-kfjhrgx. Any new pain or worsening pain should prompt re-evaluation by a doctor. General Instructions None Provider Contact Information: MARLON LEVINE MD [address] [facility] [address] (phone) [phone] (fax) Signed: REYNALDO APPLE MD Discharged: 04/30/2011 [...] is nearly WNL(just slightly elevated). Spoke with CCTV TECHNICIAN who will weigh pt today. Because pt [...] day. She has been using her Dilaudid BOTTOMING ROOM SUPERVISOR. However, the BOTTOMING ROOM SUPERVISOR's power turned off and the information was [...] of sharp pain. Pt has a Dilaudid BOTTOMING ROOM SUPERVISOR and has only used 0.5 mg so [...] Routine 04/28/2011 6:05 AM EST CARDIAC ENZYMES ([facility]) Routine 04/28/2011 6:05 AM EST CBC (WITH DIFF) Routine 04/28/2011 6:05 AM EST BASIC METABOLIC PANEL Routine 04/28/2011 6:[address] CHEST PULMONARY EMBOLISM W CONTRAST STAT 04/27/2011 9:54 PM EST CARDIAC ENZYMES ([facility]) Routine 04/27/2011 9:03 PM [...] AM EST Juvenal Lea MD CHEMISTRY ORDERABLES [facility] * (ABNORMAL) CBC (with Diff) (04/29/2011 [...] (04/28/2011 2:42 PM EST) Pathologist [facility] Lactate Dehydrogenase 142 110 - 220 unit/L [facility] Blood specimen (specimen) 04/28/2011 2:42 PM EST 04/28/2011 2:48 PM EST Juvenal Lea MD CHEMISTRY ORDERABLES Performing Organization Address [facility] Phone Number [facility] * (ABNORMAL) Protein, total (04/28/2011 2:42 PM EST) Pathologist [facility] Protein, Total 5.9(L) 6.4 - 8.3 gm/dL [facility] Blood specimen (specimen) 04/28/2011 2:42 PM EST 04/28/2011 2:48 PM EST Juvenal Lea MD CHEMISTRY ORDERABLES Performing Organization Address [facility] de Phone Number [facility] * Cytopathology Non-Gynecological (04/28/2011 12:35 PM EST) AP Specimen 04/28/2011 12:3 5 PM EST 04/28/2011 12:35 PM EST Narrative [facility] - 04/28/2011 12:35 PM EST Specimen requisition ordered. ??Separate Pathology report to follow Juvenal Lea MD PATHOLOGY/CYTOLOGY O RDERABLES Performing Organization Address [facility] Phone Number [facility] * CARDIAC ENZYMES (04/28/2011 6:05 AM EST) Pathologist [facility] Troponin-T <0.03 <=0.03 ng/mL [facility] Comment: 0.03 ng/mL: Represents the 99th percentile upper reference limit for normals. >0.03 ng/mL: Elevated cardiac troponin T level indicative of myocardial damage. Diagnosis of acute, evolving or recent NM requires a typical rise and gradual fall [...] consensus document of the Joint Society of Cardiology/[place] College of Cardiology Committee for the redefinition of myocardial infarction. Journal of the [place] College [employer]iology 2000; 36: 959-969] Creatine [...] 9:03 PM EST) Troponin-T <0.03 <=0.03 ng/mL Prevac[facility] Comment: 0.03 ng/mL: Represents the 99th percentile upper reference limit for normals. >0.03 ng/mL: Elevated cardiac troponin T level indicative of myocardial damage. Diagnosis of acute, evolving or recent NM requires a typical rise and gradual fall [...] consensus document of the Joint Society of Cardiology/[place] College of Cardiology Committee for the redefinition of myocardial infarction. Journal of the [place] College [employer]iology 2000; 36: 959-969] Creatine Kinase 34 0 - 160 unit/L [facility] Blood specimen (specimen) 04/27/2011 9:03 PM EST 04/27/2011 9:20 PM EST Juvenal Lea MD CHEMISTRY ORDERABLES [facility] * Lipase (04/27/2011 9:03 PM EST) Lipase 19 0 - 60 unit/L [facility] Blood specimen (specimen) 04/27/2011 9:03 PM EST 04/27/2011 9:20 PM EST Juvenal Lea MD CHEMISTRY ORDERABLES Performing Organization Address City/[facility]/ZIP Co de Phone Number MENDEL COLLAZOIUM [...] Absolute 0.06(H) 0.00 - 0.05 x10(3)/mc L [facility] Blood specimen (specimen) 04/27/2011 8:50 PM EST 04/27/2011 9:20 PM EST Juvenal Lea MD HEMATOLOGY ORDERABLE S Performing Organization Address [facility] Phone Number [facility] * (ABNORMAL) D-Dimer, Quantitative (04/27/2011 8:50 PM EST) D-Dimer 3685(H) 0 - 500 FEU ng/ml [facility] Comment: The D-Dimer assay is used [...] MD HEMATOLOGY ORDERABLE S Performing Organization Address [facility] Number [facility] * APTT (04/27/2011 8:50 PM EST) Partial Thromboplastin Time 33 25 - 35 sec [facility] Comment: Recommended therapeutic PTT range for full dose unfractionated heparin is 80-114 seconds. Blood specimen (specimen) 04/27/2011 8:50 PM EST 04/27/2011 9:20 PM EST Juvenal Lea MD HEMATOLOGY ORDERABLE S Performing Organization Address [facility] Phone Number [facility] * (ABNORMAL) Prothrombin Time (04/27/2011 8:50 PM EST) Prothrombin Time 15.5(H) 12.3 - 14.7 sec [facility] Comment: [facility] Transfusion Committee Guidelines: INR less than 2.0, [...] MD HEMATOLOGY ORDERABLE S Performing Organization Address [facility] de Phone Number [facility] * [...] Lea MD CHEMISTRY ORDERABLES Performing Organization Address [facility] Phone Number [facility] * Phosphorus (04/27/2011 8:50 PM EST) Phosphorus 2.6 2.5 - 4.5 mg/dL [facility] Blood specimen (specimen) 04/27/2011 8:50 PM EST 04/27/2011 9:20 PM EST Juvenal Lea MD CHEMISTRY ORDERABLES Performing Organization Address [facility] de Phone Number [facility]ILL[facility] * [...] scoliotic curvature to spine rightward. There are tezcxzph-ae-dyhva bilateral effusions, left greater than right. There [...] Mild scoliotic curvature to spine rightward. Thereare vjtorfzd-nv-npvnb bilateral effusions, left greater than right. There [...] Comment: Total Hemoglobin (in gm/dL) ?Based on [facility] Hematology ranges: ?Age ?Reference [...] (Bezet) 419 ms MUSE SYSTEM Calculated P Codorus 60 degrees MUSE SYSTEM Calculated R Codorus 67 degrees MUSE SYSTEM Calculated T Codorus 52 degrees MUSE SYSTEM INTERPRETATION Sinus rhythm with short OR T wave abnormality, consider anterior ischemia Abnormal [...] Urine Dipstick Clear Clear CERNER MILLENNIUM Specific [place] Urine Automated 1.013 1.002 - 1.030 CERNER MILLENNIUM Color, Urine Dipstick Yellow Yellow CERNER MILLENNIUM RBC, Urine Not Present 0 - 4 CERNER MILLENNIUM WBC, Urine 1 0 - 5 /HPF [facility]ILLENNI[facility] Urine specimen (specimen) 04/27/2011 6:11 PM EST 04/27/2011 6:26 PM EST Juvenal Lea MD URINE ORDERABLES Performing Organization Address City/[facility]/ZIP Co de Phone Number CERNER RatioENNIUM * FILM LIBRARY- STORAGE ONLY CT ABDOMEN & PELVIS (04/24/2011 7:53 PM EST) 04/24/2011 7:53 PM EST Narrative RAD - 08/20/2013 1:45 PM EDT This is a non-reportable exam. Procedure Note Fuentes Puente - 08/20/2013 This is a non-reportable exam. Constance Rahman MD IM FILM LIBRARY ORD ERABLES [facility] [address] [place] [address] documented in this encounter Visit Diagnoses Diagnosis [...] EST 40 mg HYDROmorphone (DILAUDID) 1 mg/mL BOTTOMING ROOM SUPERVISOR 30 mL Intravenous, BOTTOMING ROOM SUPERVISOR ONLY, Starting on Mon04/27/11 at 1830, Until [...] 100 mg, Subcutaneous, ONCE, 1 dose, On [facility] 04/28/11 at 1315, Routine Given 04/28/2011 [...] Reinoso RN) 0630 (Given - Provider: Lori Renioso RN)1830 (Given - Provider: Aiden Mac RN) [...] RN) documented in this encounter Care Teams Engineering Intern Relationship Specialty Start Date End Date Marlon Levine MD [address] [place] [address] PCP - General 02/16/10 06/19/12 documented as of this encounter
--- OUTSIDE RECORDS SUMMARY | 2024-04-12 00:30 | XMS_ITS | Encounter Summary ---
Author Organization [facility] Address [address] [place] [address] Care Team Providers Care Administrative Law Judge Name Role Phone Izabella Moise MD Primary Care Provide r Unavailable Encounter Details Date Type Department Care Team (Late st Contact Info) Description 03/22/2005 Before PRISM Converted Visit (Maple) [facility] - Maple conversion [address] [place] [address] Deep Rutherford MD MSc [address] [place] [place] [phone] Social History Tobacco Use Types Packs/Day Years [...] EST DIVISION OF SURGICAL ONCOLOGY - [facility] PROGRESS/FOLLOWUP NOTE - 03/22/2005 Reason for visit: [...] 2.9 cm in greatest dimension, poorly differentiated, ER/LA negative, with 10% DCIS component, all margins [...] the characteristics of the tumor and its ER/LA negative status, chemotherapy was thought to be of greatbenefit. I will see the patient back in my clinic in three months for overall follow-up and reassessment. Atthat time I will also readdress the range of motion of the left arm. Signed by Deep Rutherford MD 03/24/2005 11:51 Timoteo Foster MD Deep Rutherford MD - Deep Rutherford MD P - KKB Job ID: [id number] Document ID: [id number] cc: Cancer Data Registry Marlon Levine MD cc: Cancer Data Registry Marlon Levine MD documented in this encounter Plan of Treatment Not on file documented as of this encounter Visit Diagnoses Not on filedocumented in this encounter Care Teams Administrative Law Judge Relationship Specialty Start Date End Date Izabella Moise MD PCP - General 07/26/0805/26 documented as of this encounter
--- OUTSIDE RECORDS SUMMARY | 2024-04-12 00:30 | XMS_ITS | Encounter Summary ---
Author Organization [facility] Address [address] [place] [address] Care Team Providers Care Quality And Reliability Engineer Name Role Phone Izabella Moise MD Primary Care Provide r Unavailable Encounter Details Date Type Department Care Team (Late st Contact Info) Description 04/18/2011 Results Only [facility] Laboratory Services - [facility]) [address], [place] [id number] Maryann Gillespie NP Social History Tobacco Use [...] ? BILLIE STEPHENSON ? Accession #: ? [id number] ? : ? 1970 (Age: 40) ??F ?Collect Date: ? 04/18/2011 ? Location: ? [facility] ? Receive Date: ? 04/19/2011 ? Provider: MARYANN GILLESPIE CASH GRAIN GROWER Copy to: MORRIS CARTAGENA MD ? Final Report SPECIMEN ADEQUACY ? Satisfactory for Evaluation - transformation zone component present - scant squamous epithelial component secondary to excessive inflammation GENERAL CATEGORIZATION ? Negative for Intraepithelial Lesion or Malignancy ?? Last Menstural Period: 04/04/11 Hormonal/Contracep tive status: Intrauterine device: paraguard Treatment History: Chemotherapy: [id number] Radiation therapy: [id number] Other: Additional clinical information: pap 12/02 neg, pt hx of breast cancer in 3512-7227 Specimen/Source: ??Pap Test, Cervix/Endocervix, ThinPrep Imaging System [...] TO LAB 04/18/2011 04/19/2011 us Maryann Gillespie CASH GRAIN GROWER PATHOLOGY ORDERABLES Final Re sult Performing Organization Address City/State/[facility] Co de Phone Number [facility] [address] [place] [address] documented in this encounter Visit Diagnoses Not on filedocumented in this encounter Care Teams Quality And Reliability Engineer Relationship Specialty Start Date End Date Izabella Moise MD PCP - General 07/26/0805/26 documented as of this encounter
--- OUTSIDE RECORDS SUMMARY | 2024-04-12 00:30 | XMS_ITS | Encounter Summary ---
Author Organization [facility] Address [address] [place] [address] Care Team Providers Care Seo Team Lead Name Role Phone Unavailable Primary Care Provider Unavailabl e Encounter Details Date Type Department Care Team (Late st Contact Info) Description 02/24/2005 17:12 EST Hospital Encounter [address] [address] Marissa Garay MD PhD [address] [place] [address], [address] [place] [id number] Social History Tobacco Use Types Packs/Day Years [...]
--- OUTSIDE RECORDS SUMMARY | 2024-04-12 00:30 | XMS_ITS | Encounter Summary ---
Author Organization [facility] Address [address] [place] [address] Care Team Providers Care Aerial Crop Duster Name Role Phone Izabella Moise MD Primary Care Provide r Unavailable Encounter Details Date Type Department Care Team (Late st Contact Info) Description 07/26/2008 8:33 EDT - 07/26/2008 15:32 EDT Emergency [facility] Emergency Department - [facility] [address] [place] [address] Emergency, Default, MD Discharge Disposition: Home or [...] BROWER Final Result [facility] [address] [place] [address] * UA REFLEX (07/26/2008 11:50 EDT) UA Billing Microscopic not indicated. [facility] 07/26/2008 11:5 0 EDT 07/26/2008 13:18 EDT us Default Emergency MD URINALYSIS ORDERABLES Final Result Performing Organization Address [facility] Co de Phone Number [facility] [address] [place] [address] * (ABNORMAL) URINALYSIS, CHEMICAL (07/26/2008 11:50 EDT) Color, UA Yellow [facility] Clarity, UA Hazy [facility] Glucose, UA Norm NORM [facility] Bilirubin, UA Neg NEG [facility] Ketones, UA Neg NEG [facility] Specific [place], Urine 1.015 1.005 - 1.02 [facility] Blood, UA Neg NEG [facility] pH, UA 7.0 5.0 - 9.0 [facility] Protein, UA Neg NEG [facility] Urobilinogen, Urine 1.0(A) NORM mg/dL [facility] Nitrite, UA Neg NEG [facility] Leuk Esterase Neg NEG [facility] 07/26/2008 11:5 0 EDT 07/26/2008 13:18 EDT us Default Emergency MD URINALYSIS ORDERABLES Final Result Performing Organization Address [facility] Co de Phone Number [facility] [address] [place] [address] * CULTURE IF UA POSITIVE (07/26/2008 11:50 EDT) Culture if Indicated Culture not indicated by urinalysis results. [facility] 07/26/2008 11:5 0 EDT 07/26/2008 13:18 EDT us Default Emergency MD MICROBIOLOGY - GENERAL MERT BROWER Final Result Performing Organization Address City/[facility] Co de Phone Number [facility] [address] [place] [address] * RAD US DOPPLER UPPER EXTREMITY VENOUS [...] agree with the findings. Maj Lamont [facility] US ORDERABLES Final Result * CHEST PA [...] No infiltrative lung change. Maj Lamont [facility] DIAGNOSTIC IMAGING ORDERABLE S Final Result * (ABNORMAL) PTT (07/26/2008 9:32 EDT) PTT 112(HH) 20 - 35 secs [facility] Comment: Therapeutic Heparin range: ?? 60-100 seconds Sample retested, result confirmed Blood specimen (specimen) 07/26/2008 9:32 EDT 07/26/2008 9:32 EDT Default Emergency MD HEMATOLOGY & PF4 ORDERABLES Final Result Performing Organization Address [facility] de Phone Number [facility] [address] [place] [address] * (ABNORMAL) PROTIME (07/26/2008 9:32 EDT) Pro [...] PF4 ORDERABLES Final Result Performing Organization Address [facility] de Phone Number [facility] [address] [place] [address] * (ABNORMAL) LIVER FUNCTION TESTS (07/26/2008 9:32 [...] ORDER KARMA Final Result Performing Organization Address [facility] Co de Phone Number [facility] [address] [place] [address] * (ABNORMAL) SCREENING GLUCOSE (07/26/2008 9:32 EDT) Glucose, Screening 105(H) 70 - 100 mg/dl [facility] Blood specimen (specimen) 07/26/2008 9:32 EDT 07/26/2008 9:32 EDT us Default Emergency CHEMISTRY & BLOOD GAS ORDER KARMA Final Result Performing Organization Address [facility] de Phone Number [facility] [address] [place] [address] * (ABNORMAL) CREATININE (07/26/2008 9:32 EDT) Creatinine 0.60(L) 0.7 - 1.5 mg/dl [facility] GFR, Calculated >60 ml/min/1.7 3m2 [facility] Blood specimen (specimen) 07/26/2008 9:32 EDT 07/26/2008 9:32 EDT us Default Emergency CHEMISTRY & BLOOD GAS ORDER KARMA Final Result Performing Organization Address [facility] de Phone Number [facility] [address] [place] [address] * BUN (07/26/2008 9:32 EDT) BUN 13 10 - 26 mg/dl [facility] Blood specimen (specimen) 07/26/2008 9:32 EDT 07/26/2008 9:32 EDT us Default Emergency MD CHEMISTRY & BLOOD GAS ORDER KARMA Final Result Performing Organization Address [facility] Co de Phone Number [facility] [address] [place] [address] * (ABNORMAL) ELECTROLYTES (07/26/2008 9:32 EDT) Pathologist [facility] Sodium 135(L) 136 - 145 mEq/L [facility] Potassium 3.8 3.5 - 5.0 mEq/L [facility] Chloride 102 96 - 110 mEq/L [facility] CO2 27 24 - 32 mEq/L [facility] Blood specimen (specimen) 07/26/2008 9:32 EDT 07/26/2008 9:32 EDT us Default Emergency MD CHEMISTRY & BLOOD GAS ORDER KARMA Final Result [facility] [address] [place] [address] * (ABNORMAL) HEMAGRAM AND DIFFERENTIAL (07/26/2008 9:32 EDT) Pathologist [facility] WBC 7.32 4.0 - 12.4 K/cmm [facility] RBC 2.82(L) 3.86 - 5.04 M/cmm [facility] Hemoglobin 10.1(L) 11.6 - 15.2 gm/dl [facility] HCT 28.7(L) 34.9 - 44.4 % [facility] MCV 102(H) 81 - 98 fl [facility] MCH 36.0(H) 26.7 - 33.3 pg [facility] MCHC 35.4 32.1 - 35.9 gm/dl [facility] PLT 147 141 - 320 K/cmm [facility] RDW-CV 16.0(H) 11.7 - 14.6 % [...] ABS Monocytes 0.31 0.1 - 0.8 K/cmm [facility] ABS Eosinophils 0.06 0.03 - 0.61 K/cmm [facility] ABS Basophils 0.01 0.01 - 0.11 K/cmm [facility] Type of Diff: Automated [facility] Blood specimen (specimen) 07/26/2008 9:32 EDT 07/26/2008 9:32 EDT us Default Emergency MD PACKAGES & DNA PROBE ORDERA BLES Final Result Performing Organization Address [facility] Co de Phone Number [facility] [address] [place] [address] * BACTERIAL CULTURE, BLOOD (07/26/2008 9:25 EDT) Specimen Description Blood Draw site not indicated. [facility] Result No growth [facility] Report Status Final [id number] [facility] Blood specimen (specimen) 07/26/2008 9:25 EDT 07/26/2008 11:03 EDT us Default Emergency MD MICROBIOLOGY - GENERAL ORDE RABCIELO Final Result Performing Organization Address [facility] Co de Phone Number [facility] [address] [place] [address] * BACTERIAL CULTURE, BLOOD (07/26/2008 9:05 EDT) Specimen Description Blood Draw site not indicated. [facility] Result No growth [facility] Report Status Final [id number] [facility] Blood specimen (specimen) 07/26/2008 9:05 EDT 07/26/2008 11:02 EDT us Default Emergency MICROBIOLOGY - GENERAL ORDE RABCIELO Final Result Performing Organization Address [facility] Co de Phone Number [facility] [address] [place] [address] documented in this encounter Visit Diagnoses Not on filedocumented in this encounter Care Teams Aerial Crop Duster Relationship Specialty Start Date End Date Izabella Moise MD PCP - General 07/26/0805/26 documented as of this encounter
--- OUTSIDE RECORDS SUMMARY | 2024-04-12 00:30 | XMS_ITS | Encounter Summary ---
Author Organization [facility] Address [address] [place] [address] Care Team Providers Care Billet Assembler Name Role Phone Izabella Moise MD Primary Care Provide r Unavailable Encounter Details Date Type Department Care Team (Late st Contact Info) Description 02/15/2005 Results Only [facility] Surgical Oncology - [facility] [address] [place] [address] Lamont Marroquin MD MSc [address] [place] [phone] Social History Tobacco Use Types Packs/Day Years [...] ? BILLIE LANCE ? Accession #: ? [id number] ? : ? 1970 (Age: 34) ??F [...] a duct or parenchymal breast tissue. ??(Dr. Le)/[facility] Document reviewed and electronically signed by: [...] submitted entirely as (A1) and (A2). ??(Dr. Le)/[facility] End [facility] 02/15/2005 02/15/2005 15: 17 EST us Lamont Marroquin MD MSc PATHOLOGY ORDERABLES Final Re sult [facility] [address] [place] [address] * CYTOPATHOLOGY (02/15/2005 0:00 EST) Pathology Report: CYTOPATHOLOGY REPORT Reports generated via electronic interface contain original data; however they are lacking the format of the original report. Caution should be taken when reading/interpreti ng unformatted reports. Name: ? BILLIE LANCE ? Accession #: ? [id number] : ? 1970 (Age: 34) ??F ?Collect [...] but do not exclude underlying papilloma. (Dr. Moreno)/[facility] Document reviewed and electronically signed by: ? IVANNA MORENO MD [facility] Report Date: ??02/16/2005 13:31 By the [...] Final Re sult [facility] [address] [place] [address] documented in this encounter Visit Diagnoses Not on filedocumented in this encounter Care Teams Billet Assembler Relationship Specialty Start Date End Date Izabella Moise MD PCP - General 07/26/0805/26 documented as of this encounter
--- OUTSIDE RECORDS SUMMARY | 2024-04-12 00:30 | XMS_ITS | Encounter Summary ---
Author Organization [facility] Address [address] [place] [address] Care Team Providers Care Textile Supervisor Name Role Phone Marlon Levine MD Primary Care Provider [phone] Reason for Visit * Reason Comments Pleurisy left anterior lower ribsIt is bulging and it cramps up onset 1 week ago intermittent Encounter Details Date Type Department Care Team (Late st Contact Info) Description 06/17/2012 16:02 EDT - 06/17/2012 20:05 EDT Emergency [facility] Emergency Department - [address] [address] Orion Warner MD [address] [place] [address], [address] [place] [phone] Emergency, MD Ghulam Musculoskeletal chest [...] * MUSCULOSKELETAL CHEST PAIN: AFTER YOUR VISIT ([place]) documented in this encounter Discharge Disposition Disposition Code Departure Means Destination Home or Self Care documented in this encounter ED Notes * Jacob Cui RN - 06/17/2012 1811 EDT Unsuccessful attempts made by this author and 2 ED techs to insert PIV. APPAREL SALES ASSOCIATE at bedside at this time * Orion [...] IV nurse intravenous access was unobtainable. Chest [id number]-[id number] with radiologist, no acute cardiopulmonary process, and numerous clips presentsecondary to bilateral mastectomies Laboratory [id number] not elevated. Patient with reproducible musculoskeletal chest [...] encounter Miscellaneous Notes * Scanned Note-Null - LEGAL RECRUITER, SCAN 2 - 06/21/2012 0945 EDT documented in this encounter Plan of [...] F inal Result [facility] [address] [place] [address] * SMEAR REVIEW (06/17/2012 17:05 EDT) Smear scan only: Slide was examined by a technologist to verify the WBC and/or platelet count. [facility] 06/17/2012 17:0 5 EDT 06/17/2012 18:47 EDT Orion Warner MD HEMATOLOGY & PF4 ORDERABLES F inal Result Performing Organization Address City/[facility] Co de Phone Number [facility] [address] [place] [address] * HEMAGRAM (06/17/2012 17:05 EDT) WBC 5.91 4.0 - 12.4 K/cmm [facility] RBC 4.50 3.86 - 5.04 M/cmm [facility] Hemoglobin 14.3 11.6 - 15.2 gm/dl [facility] HCT 42.4 34.9 - 44.4 [...] ORDERABLES F inal Result Performing Organization Address [facility] de Phone Number [facility] [address] [place] [address] * D-DIMER (06/17/2012 17:05 EDT) D-Dimer <200 <230 ng/mL [facility] Comment:CUTOFF VALUE FOR THE EXCLUSION OF DVT and PE: 230 ng/mL D-dimer units 06/17/2012 17:0 5 EDT 06/17/2012 18:47 EDT Orion Warner MD HEMATOLOGY & PF4 ORDERABLES F inal Result Performing Organization Address City/[facility] Co de Phone Number [facility] [address] [place] [address] * PROTIME (06/17/2012 17:05 EDT) Pro Time [...] ORDERABLES F inal Result Performing Organization Address [facility] de Phone Number [facility] [address] [place] [address] * CREATININE (06/17/2012 17:05 EDT) Pathologist [facility] Creatinine 0.56 0.52 - 1.04 mg/dl [facility] Comment:Slight hemolysis GFR, Calculated >60 >60 ml/min/1.7 3m2 [facility] Blood specimen (specimen) 06/17/2012 17:05 EDT 06/17/2012 18:47 EDT Orion Warner MD CHEMISTRY & BLOOD GAS ORDERAB LES Final Result Performing Organization Address [facility] de Phone Number [facility] [address] [place] [address] * BUN (06/17/2012 17:05 EDT) BUN 19 10 - 26 mg/dl [facility] Comment: Slight hemolysis Results may be affected due to hemolysis. Blood specimen (specimen) 06/17/2012 17:05 EDT 06/17/2012 18:47 EDT Orion Warner MD CHEMISTRY & BLOOD GAS ORDERAB LES Final Result Performing Organization Address [facility] Co de Phone Number [facility] [address] [place] [address] * ELECTROLYTES (06/17/2012 17:05 EDT) Sodium 145 [...] ORDERAB LES Final Result Performing Organization Address [facility] Co de Phone Number [facility] [address] [place] [address] * GLUCOSE, SERUM (06/17/2012 17:05 EDT) Glucose, Serum 79 70 - 100 mg/dl [facility] Comment: Slight hemolysis Results may be affected due to hemolysis. Blood specimen (specimen) 06/17/2012 17:05 EDT 06/17/2012 18:47 EDT Orion Warner MD CHEMISTRY & BLOOD GAS ORDERAB LES Final Result Performing Organization Address [facility] de Phone Number [facility] [address] [place] [address] documented in this encounter Visit Diagnoses Diagnosis [...] 1908, STAT 1908 (Given - Provid er: Jcaob Cui RN) documented in this encounter Orders Medications Ordered That Mario ht Not Have Been Administered Count Last Ordered Date First Ordered Date sodium chloride (NS) 0.9 % 1,000 mL BOLUS 1 06/17/2012 IV Count Last Ordered Date First Orde red Date IV REQUEST 1 06/17/2012 documented in this encounter Care Teams Textile Supervisor Relationship Specialty Start Date End Date Marlon Levine MD [address] [place] [id number] PCP - General 06/17/12 documented as of this encounter
--- OUTSIDE RECORDS SUMMARY | 2024-04-12 00:30 | XMS_ITS | Encounter Summary ---
Author Organization [facility] Address [address] [place] [address] Care Team Providers Care Director Maternal Child Name Role Phone Izabella Moise MD Primary Care Provide r Unavailable Encounter Details Date Type Department Care Team (Late st Contact Info) Description 03/22/2005 Before PRISM Converted Visit (Maple) [facility] - Maple conversion [address] [place] [address] Valentina Farooq MD Social History Tobacco Use [...] 2112 EST DIVISION OF SURGICAL ONCOLOGY - [facility] NEW PATIENT EVALUATION - 03/22/2005 IDENTIFICATION: 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 [...] coupled with a left breast ultrasound at [facility] on 02/11/2005. A suspicious-appearing grouping [...] subsequently seen by Dr.Ted Rutherford at the [facility] on 02/15/2005. His physical exam at [...] node biopsy under Dr. Rutherford' care at [facility] on 03/02/2005. Subsequent histopathology revealed poorly [...] once again, under Dr. Rutherford's care at [facility] on 03/10/2005. Subsequent histopathology revealed negative surgical resection margins and no significant residual malignancy was present either from the posterior or inferior medial margins. She has had an uneventful postoperative recovery and comes to the [facility] in followup todayto meet with both [...] my chemotherapy here or over at [facility] which would definitely be closer...I know [...] products. [employer]. SOCIAL HISTORY: , lives in [place]. 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 She has about two drinks per month and has never smoked. FAMILY HISTORY: Antonia has a sister who was diagnosed with breast cancer at around age 39 and is currently alive and well at age 43; My [facility]diagn[facility] so that's why we have artie little [...] with sentinel lymph node biopsy, ER and TX negative and HER-2/cynthia negative as well. She [...] an excellent candidate for participation in [employer] 18945 which looks at the use of either dose-dense AC versus Taxol or either two or three monthsduration in node-negative high-risk breast cancer. Outside of this clinical trial, I would probablyrecommend AC for four cycles administered either every three weeks or more likely every two weeks in dose- dense fashion with Neulasta growth factor support. Since she is both ER and TX negative, I would not recommend any adjuvant [...] PLAN: 1. I spent 75 minutes in lasl-ku-tftp contact with Antonia and her today with [...] and radiation therapy, a catalog from the [employer] about wigs and scarves regarding [...] have therapy and further care done at [facility] in [facility] as staffed by [facility], I would be happy to arrange for suchconsultation to occur. Signed by Valentina Farooq MD 04/05/2005 08:31 Koby Farooq MDHematology / Oncology AttendingValentina Farooq MD Valentina Farooq MD Hematology / Oncology Attending - Valentina Farooq MD A - BC Job ID: [id number] Document ID: [id number] cc: MD Marissa Cline MD Ted A James, MD Timothy Tanner, MD documented in this encounter Care Teams Director Maternal Child Relationship Specialty Start Date End Date Izabella Moise MD PCP - General 07/26/0805/26 documented as of this encounter
--- OUTSIDE RECORDS SUMMARY | 2024-04-12 00:30 | XMS_ITS | Encounter Summary ---
Author Organization [facility] Address [address] [place] [address] Care Team Providers Care Air Brush Artist Name Role Phone Izabella Moise MD Primary Care Provide r Unavailable Encounter Details Date Type Department Care Team (Late st Contact Info) Description 01/26/2001 Results Only [facility] - Maple conversion [address] [place] [address] Jerri Bennett, [facility] [address] [place] [address] Social History Tobacco Use Types [...] ? BILLIE STEPHENSON ? Accession #: ? [id number] : ? 1970 (Age: 30) ??F ?Collect Date: ? 01/26/2001 Location: ? [facility] ? Receive Date: ? 01/29/2001 Provider: ?JERRI BENNETT CARDIOVASCULAR PHYSICIAN ASSISTANT Copy to: ? Specimen/Source: ?ThinPrep Pap Test, Cervix/Endocervix Last Menstrual Period: ? 01/19/01 ? SPECIMEN ADEQUACY ? Satisfactory for evaluation but limited by scant squamous epithelial component secondary to excessive blood. GENERAL CATEGORIZATION ? Within Normal Limits ? Document reviewed and electronically signed by: ? JENNIFER Barney(ASCP) ? Report Date: ??02/01/2001 10:37 End of Report [facility] 01/26/2001 01/29/2001 us Jerri Bennett CARDIOVASCULAR PHYSICIAN ASSISTANT PATHOLOGY ORDERABLES Final R esult [facility]INE[facility] [address] [place] [address] documented in this encounter Visit Diagnoses Not on filedocumented in this encounter Care Teams Air Brush Artist Relationship Specialty Start Date End Date Izabella Moise MD PCP - General 07/26/0805/26 documented as of this encounter
--- OUTSIDE RECORDS SUMMARY | 2024-04-12 00:30 | XMS_ITS | Encounter Summary ---
Author Organization [facility] Address [address] [place] [address] Care Team Providers Care Printed Circuit Designer Name Role Phone Izabella Moise MD Primary Care Provide r Unavailable Encounter Details Date Type Department Care Team (Late st Contact Info) Description 02/26/2004 Results Only [facility] - Maple conversion [address] [place] [address] Laury Mendoza, TERRITORY SALES PROFESSIONAL [address] [place] [phone] Social History Tobacco Use Types Packs/Day Years [...] 69. [facility] Report Status Final [id number] [facility] 02/26/2004 14:2 8 EST 03/05/2004 14:28 EST us Laury Mendoza NP MICROBIOLOGY - GENERAL ORDERABL ES Final Result [facility] [address] [place] [address] * CYTOPATHOLOGY (02/26/2004 0:00 EST) Pathology Report: CYTOPATHOLOGY REPORT Reports generated via electronic interface contain original data; however they are lacking the format of the original report. Caution should be taken when reading/interpreti ng unformatted reports. Name: ? BILLIE STEPHENSON ? Accession #: ? [id number] : ? 1970 (Age: 33) ??F ?Collect Date: ? 02/26/2004 Location: ? [facility] ? Receive Date: ? 03/01/2004 Provider: ?LAURY MENDOZA TERRITORY SALES PROFESSIONAL Copy to: ? Specimen/Source: ?ThinPrep Pap Test, [...] and electronically signed by: ? Matt Montiel, [place](ASCP) ? Report Date: ??03/05/2004 12:51 End of Report [facility] 02/26/2004 03/01/2004 us Laury Mendoza NP PATHOLOGY ORDERABLES Final Resu lt [facility] [address] [place] [address] documented in this encounter Visit Diagnoses Not on filedocumented in this encounter Care Teams Printed Circuit Designer Relationship Specialty Start Date End Date Izabella Moise MD PCP - General 07/26/0805/26 documented as of this encounter
--- OUTSIDE RECORDS SUMMARY | 2024-04-12 00:30 | XMS_ITS | Encounter Summary ---
Author Organization [facility] Address [address] [place] [address] Care Team Providers Care Trawl Net Maker Name Role Phone Izabella Moise MD Primary Care Provide r Unavailable Encounter Details Date Type Department Care Team (Late st Contact Info) Description 07/26/2008 Office Visit [facility] - Maple conversion [address] [place] [address] Maj Miguel MD [address] [place] [phone] Social History Tobacco Use Types Packs/Day [...] aspiration of fluid 5 weeks ago at [facility]. Last night had temp of 100.2. Feels [...] abscess, lymphocele.). PROGRESS AND PROCEDURES E.D. Course: byXR, US, labs ordered 09:06. seen by surgery, aspiration done, sent for culture Pt remains afebrile . Discussed case with physician oncology at [facility], Dr. Bernal. Reviewed test results. 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 Pt discharged on Keflex 500mg QID x 7 days. Pt is on chemo for breast cancer, no neutropenia. No LMD listed on lab form. signed by Luz Wheatley R.N., [facility] - 07/29/2008 11:52) Department - Nursing [...] The patient has had a headache. Treatment OUTREACH PROFESSIONAL: None. PAST HX: Breast cancer. SOCIAL HX: [...] in lowest position. Brakes of bed on. --32 Zenon MnodragonM.TWendy (Prior note made by this RN.). --0934 [...] limits. Patient transported to radiology by stretcher. --0924 Joyce Fragoso R.N. (Critical Value Per Lab: PTT 112). --1008 Zenon HansenMWendyTWendy (U/S at bedside for study.). --1033 Joyce Fragoso R.N. (Pt resting quietly, nad. Supportive ancillary services manager at bedside. Pt reports pain unchanged but [...] seroma sent to lab, specimen obtained by vice president diversity). --1239 Laurel Huerta R.N. BP: 129 / [...] and drawn- sent to lab). --0933 Zenon MondragonM.TWendy (Mediport accessed and blood draw by this RN.).--0934 oJyce Fragoso R.N. Blood samples drawn from the [...] 5 mL (100 units / mL) heparin. --51 Joyce Fragoso R.N.. DISPOSITION / DISCHARGE Condition [...] Patient verbalized understanding. Written instructions provided in Vietnamese. (Port flushed with 10 cc NS then 2.5 cc Heparin (100 units/mL) and de- accessed.). The patient was discharged home and accompanied by ancillary services manager. The patient left the Emergency Department ambulatory and via private vehicle. Web Press Roll Tender driving. --1531 Kathy Greenfield R.N. Fall risk assessment completed. No fall risk identified. --1531 Kathy Greenfield R.N.. Zenon Amaya R.N.MZenon Rodas R.N.MWalt YarbroughMYvan Trujillo R.N. Locked/Released at 07/27/2008 8:41 by Laruel Huerta R.N. documented in this encounter Plan of Treatment Not on file documented as of this encounter Visit Diagnoses Not on filedocumented in this encounter Care Teams Trawl Net Maker Relationship Specialty Start Date End Date Izabella Moise MD PCP - General 07/26/0805/26 documented as of this encounter
--- OUTSIDE RECORDS SUMMARY | 2024-04-12 00:30 | XMS_ITS | Encounter Summary ---
Author Organization [facility] Address [address] [place] [address] Care Team Providers Care Emissions Testing And Repair Technician Name Role Phone Unavailable Primary Care Provider Unavailabl e Encounter Details Date Type Department Care Team (Latest Contact Info) Description 04/07/2004 12:26 EST Hospital Encounter [facility] - Other [address] [place] [address] Olegario Mcconnell MD Discharge Disposition: Auto Discharge [...]
--- OUTSIDE RECORDS SUMMARY | 2024-04-12 00:30 | XMS_ITS | Encounter Summary ---
Author Organization [facility] Address [address] [place] [address] Care Team Providers Care Laborer Pullet Farm Name Role Phone Unavailable Primary Care Provider Unavailabl e Encounter Details Date Type Department Care Team (Late st Contact Info) Description 02/15/2005 15:44 EST Hospital Encounter [facility] [address] [place] [address] Marlon Levine MD [address] [place], [place] [phone] Deep Rutherford MD MSc [address] [place] [address] Discharge Disposition: Auto Discharge Social [...]
--- OUTSIDE RECORDS SUMMARY | 2024-04-12 00:30 | XMS_ITS | Encounter Summary ---
Author Organization [facility] Address [address] [place] [address] Care Team Providers Care Outside Sales Executive Name Role Phone Izabella Moise MD Primary Care Provide r Unavailable Encounter Details Date Type Department Care Team (Late st Contact Info) Description 12/11/2002 Results Only [address] [phone] Cami Louis MD Social History Tobacco Use [...] ? BILLIE STEPHENSON ? Accession #: ? [id number] : ? 1970 (Age: 32) ??F ?Collect [...] Final Resul t [facility] [address] [place] [address] documented in this encounter Visit Diagnoses Not on filedocumented in this encounter Care Teams Outside Sales Executive Relationship Specialty Start Date End Date Izabella Moise MD PCP - General 07/26/0805/26 documented as of this encounter
--- OUTSIDE RECORDS SUMMARY | 2024-04-12 00:30 | XMS_ITS | Encounter Summary ---
Author Organization [facility] Address [address] [place] [address] Care Team Providers Care Metal Model Maker Name Role Phone Unavailable Primary Care Provider Unavailabl e Encounter Details Date Type Department Care Team (Late st Contact Info) Description 03/02/2005 6:06 EST - 03/02/2005 11:59 EST Hospital Encounter [facility] Perioperative Services- [facility] [address] [place] [address] Deep Rutherford MD [address] [phone] Discharge Disposition: Home or Self Care Social [...] PROCEDURE REPORT PT TYPE: OPPROC PT LOC: [id number] SERVICE DATE: 03/02/2005 SURGEON: Deep Rutherford MD SENIOR EDITOR: Bogdan Hawkins MD PREOPERATIVE DIAGNOSIS: Left breast [...] Rutherford MD A - RICARDO Job ID: [id number] Document ID: [id number] cc: Deep Rutherford MD Cancer Data Registry [...]
--- OUTSIDE RECORDS SUMMARY | 2024-04-12 00:30 | XMS_ITS | Encounter Summary ---
Author Organization [facility] Address [address] [place] [address] Care Team Providers Care Digital Sales Manager Name Role Phone Izabella Moise MD Primary Care Provide r Unavailable Encounter Details Date Type Department Care Team (Late st Contact Info) Description 04/25/2006 Results Only [facility] - Maple conversion [address] [place] [address] Todd Dominguez, DO [address] [facility] [address] [place], [place] [address] Social History Tobacco Use Types Packs/Day Years [...] ? BILLIE LANCE ? Accession #: ? [id number] ? : ? 1970 (Age: 35) ??F [...] Dominguez DO PATHOLOGY ORDERABLES Fi nal Result [facility] [address] [place] [address] documented in this encounter Visit Diagnoses Not on filedocumented in this encounter Care Teams Digital Sales Manager Relationship Specialty Start Date End Date Izabella Moise MD PCP - General 07/26/0805/26 documented as of this encounter
--- OUTSIDE RECORDS SUMMARY | 2024-04-12 00:30 | XMS_ITS | Encounter Summary ---
Author Organization [facility] Address [address] [place] [address] Care Team Providers Care Cardiology Teacher Name Role Phone Marlon Levine MD Primary Care Provider [phone] Encounter Details Date Type Department Care Team (Late st Contact Info) Description 10/13/2015 Results Only [facility]- [facility] [phone] Mary Alice Ruby MD [address] [place] [address] [address] [place] [phone] Social History Tobacco Use Types [...] ? BILLIE JENNINGS ? Accession #: ? [id number] ? : ? 1970 (Age: 45) ??F [...] intraepithelial lesion (LSIL). EDUCATIONAL NOTES/RECOMMENDATI ONS ? [facility] recommends following ASCCP's 2012 Updated Consensus [...] 33,35,39,45,51,52, 56,58,59,66, and 68 is detected by hose builder mediated amplification. High and intermediate risk HPV [...] confirmed the above diagnosis. End of Report [facility] 10/13/2015 10/14/2015 us Mary Alice Ruby MD PATHOLOGY ORDERABLES Final Resu lt [facility] [address] [place] [address] documented in this encounter Visit Diagnoses Not on filedocumented in this encounter Care Teams Cardiology Teacher Relationship Specialty Start Date End Date Marlon Levine MD [address] [place] [id number] PCP - General 06/17/12 documented as of this encounter
--- OUTSIDE RECORDS SUMMARY | 2024-04-12 00:30 | XMS_ITS | Encounter Summary ---
Author Organization [facility] Address [address] [place] [address] Care Team Providers Care Warehouse Manager Name Role Phone Unavailable Primary Care Provider Unavailabl e Encounter Details Date Type Department Care Team (Late st Contact Info) Description 03/10/2005 7:09 EST - 03/10/2005 11:59 EST Hospital Encounter [facility] Perioperative Services- [facility] [address] [place] [address] Deep Rutherford MD [address] [phone] Discharge Disposition: Home or Self Care Social [...] PROCEDURE REPORT PT TYPE: OPPROC PT LOC: [id number] SERVICE DATE: 03/10/2005 SURGEON: Deep Rutherford MD BOWLING OR SKATING FRONT DESK CLERK: n/a PREOPERATIVE DIAGNOSIS: Left breast invasive ductal [...] Rutherford MD A - CK Job ID: [id number] Document ID: [id number] cc: Deep Rutherford MD Cancer Data Registry Marlon Levine MD [address] [place] [address] \* MERGEFORMAT Deep Rutherford MD A - ck Job ID: [id number] Document ID: [id number] cc: Deep Rutherford MD Cancer Data Registry Marlon Levine MD documented in this encounter Plan of Treatment Not on file documented as of this encounter Visit Diagnoses Not on filedocumented in this encounter
--- OUTSIDE RECORDS SUMMARY | 2024-04-12 00:30 | XMS_ITS | Encounter Summary ---
Author Organization [facility] Address [address] [place] [address] Care Team Providers Care Oncology Coordinator Name Role Phone Izabella Moise MD Primary Care Provide r Unavailable Encounter Details Date Type Department Care Team (Late st Contact Info) Description 03/10/[address] [facility] Surgical Oncology - [facility] [address] [place] [address] Lamont Marroquin MD MSc [address] [place] [phone] Social History Tobacco Use Types Packs/Day Years [...] ? BILLIE LANCE ? Accession #: ? [id number] ? : ? 1970 (Age: 34) ??F [...] Size: ?2.9 x 2.0 x 2.8 cm Wilcox Combined Histologic Scores: ? Tubules: ?3 ? [...] identified Lymph nodes: ?0/10 (positive/total count) ER/ IN: ?ER negative (0%); IN negative (0%)([id number]) C-erb-B2: ? Negative ([id number]) ?? Final Pathologic Diagnosis: ? A. ?Breast, [...] Description: ? Received in normal saline labelled Lance and A-additional medial margin left breast is a 66 [...] each (Dr. Cole)/mpl End of Report [facility]INLELI 03/10/2005 03/10/2005 11: 29 EST us Lamont Marroquin MD MSc PATHOLOGY ORDERABLES Final Re sult [facility] [address] [place] [address] documented in this encounter Visit Diagnoses Not on filedocumented in this encounter Care Teams Oncology Coordinator Relationship Specialty Start Date End Date Izabella Moise MD PCP - General 07/26/0805/26 documented as of this encounter
--- OUTSIDE RECORDS SUMMARY | 2024-04-12 00:30 | XMS_ITS | Encounter Summary ---
Author Organization [facility] Address [address] [place] [address] Care Team Providers Care Golf Range Attendant Name Role Phone Marlon Levine MD Primary Care Provider Encounter Details Date Type Department Care Team (Late st Contact Info) Description 10/08/2014 Results Only [facility]- [facility] [phone] Mary Alice Ruby MD [address] [place] [address] [address] [place] [phone] Social History Tobacco Use Types [...] ? BILLIE JENNINGS ? Accession #: ? [id number] ? : ? 1970 (Age: 44) ??F [...] 33,35,39,45,51,52, 56,58,59,66, and 68 is detected by tools developer mediated amplification. High and intermediate risk HPV [...] confirmed the above diagnosis. End of Report [facility] 10/08/2014 10/09/2014 us Mary Alice Ruby MD PATHOLOGY ORDERABLES Final Resu lt [facility] [address] [place] [address] documented in this encounter Visit Diagnoses Not on filedocumented in this encounter Care Teams Golf Range Attendant Relationship Specialty Start Date End Date Marlon Levine MD [address] [place] [address] PCP - General 06/17/12 documented as of this encounter
--- OUTSIDE RECORDS SUMMARY | 2024-04-12 00:30 | XMS_ITS | Encounter Summary ---
Author Organization [facility] Address [address] [place] [address] Care Team Providers Care Analysis Evaluator Name Role Phone Izabella Moise MD Primary Care Provide r Unavailable Encounter Details Date Type Department Care Team (Late st Contact Info) Description 09/11/2009 Results Only [address] [phone] Cami Louis MD Social History Tobacco Use [...] ? BILLIE STEPHENSON ? Accession #: ? [id number] ? : ? 1970 (Age: 39) ??F [...] Final Resul t [facility] [address] [place] [address] documented in this encounter Visit Diagnoses Not on filedocumented in this encounter Care Teams Analysis Evaluator Relationship Specialty Start Date End Date Izabella Moise MD PCP - General 07/26/0805/26 documented as of this encounter
--- OUTSIDE RECORDS SUMMARY | 2024-04-12 00:30 | XMS_ITS | Encounter Summary ---
Author Organization [facility] Address [address] [place] [address] Care Team Providers Care Health Educator Name Role Phone Izabella Moise MD Primary Care Provide r Unavailable Encounter Details Date Type Department Care Team (Late st Contact Info) Description 03/02/2005 Results Only [facility] Surgical Oncology - [facility] [address] [place] [address] Lamont Marroquin MD MSc [address] [place] [phone] Social History Tobacco Use Types Packs/Day Years [...] taken when reading/interpreting unformatted reports. Name: ? NATALIO BILLIE L ? Accession #: ? [id number] ? : ? 1970 (Age: 34) ??F [...] Size: ?2.9 x 2.0 x 2.8 cm Hubbard Combined Histologic Scores: ? Tubules: ?3 ? [...] identified Lymph nodes: ?0/10 (positive/total count) ER/ FL: ?See separate report C-erb-B2: ? See separate [...] reported separately in an addendum. ??(Dr. Abimael Stevenson)/[facility] Document reviewed and electronically signed by: SHANNON WHEELER [facility] Report ??Date: 03/07/2005 16:53 By the signature above, the attending physician certifies that he/she has personally conducted a gross and/or microscopic examination of the described specimens and rendered or confirmed the above diagnosis. Specimen(s) Received: A. ?Left breast mass (#1) B. ?Additional margin left breast, suture dbl long-lat, single short-superior, jya-ctefz-vklfoafd; 3 clips-anterior, single clip-superior, 2 clips-lateral C. ?Mcintosh node, left #1 Ct 1267 D. ?Non-sentinel node #1 E. ?? Mcintosh node #2, Ct 2658 F. ?Mcintosh node #3, Ct 363 G. ?Mcintosh node #4, Ct 364 H. ?#5 sentinel node, left, Ct 485 I. ?Mcintosh node left XVIVO 82 J. ?XVIVO 81 [...] Patricia Dean; 03/02/05 at 10:42 AM 3. ?Mcintosh node, left, #1, CT 1267 (SP1): 1 lymph node negative for malignancy (0/1) ??Dr. Delilah Dean; ? 03/02/05 at 12:20 4. ?Non-sentinel node (gross consult): ??1 lymph node macroscopically negative for malignancy ??Dr. Mazariegos ? Dianne; 03/02/05 at 12:20 5. ?Mcintosh node #2 CT 2658 (SP2): ??1 lymph node negative for malignancy (0/1) ??Dr. Delilah Dean; 03/02/05 6. ?Mcintosh node #3 CT 363 (gross consult): ??2 lymph nodes macroscopically negative for malignancy ??DrWendy ?Delilah Dean; 03/02/05 at 12:20 7. ?Mcintosh node #4 CT 364 (gross consult): ??1 lymph node macroscopically negative for malignancy ??Dr. Delilah Dean; 03/02/05 at 12:20 8. ?#5 sentinel node, left CT 485 (SP3): ??1 lymph node negative for malignancy (0/1) ??Dr. Delilah Dean; 03/02/05 at 12:20 9. ?Mcintosh node left ex-vivo 82 (gross consult): ??1 lymph node macroscopically negative for malignancy ??Dr. Delilah Dean; 03/02/05 at 12:40 ? 10. Mcintosh node left ex-vivo 81 (gross consult): ?? [...] as (C). Received fresh labelled Lance and B-zkx-mpzbodsp node #1 is a 2.3 x 0.6 [...] submitted entirely as (I). Received fresh labelled Lance and J-left axillary sentinel node XVIVO 81 [...] Tissue submitted: Paraffin embedded tissue block labelled [id number] ([id number]) from [facility]. An immunohistochemical assay for estrogen receptors (ER1D5, Dako) and progesterone receptors ([id number], Dako) has been performed on this specimen. [...] reagents' ??performance characteristics have been determined by [facility]. ??This laboratory is certified under the Clinical [...] Tissue submitted: Paraffin embedded tissue block labelled [id number] (A27) from [facility] Fixative: ?? Formalin ??(Fixation in 10% neutral buffered formalin for 18-24 hours with maximum tissue thickness of 3-4 millimeters is recommended for best assay performance. ??Dako HerceptestTM should not be performed on alcohol fixed tissues.) ? A c-erb-B2 (Her2/cynthia) assay (Dako HerceptestTM) was requested by Dr. Marroquin on this breast carcinoma. ??The assay was performed under appropriate conditions according to the breaker hand' s instructions with appropriate assay and tissue [...] Staining in benign epithelium: ?Absent ?The c-erb-B2 (Her2-cytnhia) assay performed is interpreted as negative. ?? Document reviewed and electronically signed by: ? MIKEY LAKHANI MD ? Report date: 03/10/2005 By the signature above, the attending physician certifies that he/she has personally conducted a gross and/or microscopic examination of the described specimens and rendered or confirmed the above diagnosis. End of Report [facility] 03/02/2005 03/02/2005 10: 16 EST us Lamont Marroquin MD MSc PATHOLOGY ORDERABLES Final Re sult [facility] [address] [place] [address] documented in this encounter Visit Diagnoses Not on filedocumented in this encounter Care Teams Health Educator Relationship Specialty Start Date End Date Izabella Moise MD PCP - General 07/26/0805/26 documented as of this encounter
--- OUTSIDE RECORDS SUMMARY | 2024-04-12 00:30 | XMS_ITS | Encounter Summary ---
Author Organization [facility] Address [address] [place] [address] Care Team Providers Care Excavating Machine Operator Name Role Phone Izabella Moise MD Primary Care Provide r Unavailable Encounter Details Date Type Department Care Team (Late st Contact Info) Description 02/15/2005 Before PRISM Converted Visit (Maple) [facility] - Maple conversion [address] [place] [address] Deep Rutherford MD MSc [address] [place] [phone] Social History Tobacco Use Types Packs/Day Years [...] [facility] biopsies [facility]. [facility] has no personal history of breast [...] lives at home with her and daughter. 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 The patient continues to have regular menstrual cycles. with delivery at age 22. The patient's LMP was 02/05/05. She is scheduled for pelvic examination in 02/28. The patient denies any fertility drug use. She has a 2-ehzi-qbumvfu of oral control pill use. She has [...] or right axilla. Diagnostics: Outside report from [facility] mammography dated 02/11/05 revealed an area [...] obtained. The patient will meet with the community center coordinator to select a date for surgery. Signed by Deep Rutherford MD 02/21/2005 16:34 Timoteo Foster MD Deep Rutherford MD - Deep Rutherford MD P - KKB Job ID: [id number] Document ID: [id number] cc: Cami Louis MD Cancer Data Registry Marlon Levine MD cc: Cami Louis MD Cancer Data Registry Marlon Levine MD documented in this encounter Plan of Treatment Not on file documented as of this encounter Visit Diagnoses Not on filedocumented in this encounter Care Teams Excavating Machine Operator Relationship Specialty Start Date End Date Izabella Moise MD PCP - General 07/26/0805/26 documented as of this encounter
--- OUTSIDE RECORDS SUMMARY | 2024-04-12 00:30 | XMS_ITS | Encounter Summary ---
Author Organization [facility] Address [address] [place] [address] Care Team Providers Care Personal Chef Name Role Phone Unavailable Primary Care Provider Unavailabl e Encounter Details Date Type Department Care Team (Late st Contact Info) Description 03/22/2005 11:04 EST Hospital Encounter [facility] [place] [address] [place] [address] Deep Rutherford MD MSc [address] [place] [id number] Social History Tobacco Use Types Packs/Day [...] ? BILLIE STEPHENSON ? Accession #: ? [id number] ? : ? 1970 (Age: 37) ??F ?Collect Date: ? 12/11/2007 ? Location: ? [facility] ? Receive Date: ? 12/11/2007 ? Provider: ?JERRI FABIÁN RETAIL ASSET PROTECTION SPECIALIST ? Copy to: ? Specimen/Source: ?ThinPrep Pap [...] TO LAB 12/11/2007 12/11/2007 us Jerri Bennett RETAIL ASSET PROTECTION SPECIALIST PATHOLOGY ORDERABLES Final R esult [facility] [address] [place] [address] documented in this encounter Visit Diagnoses Not on filedocumented in this encounter
--- OUTSIDE RECORDS SUMMARY | 2024-04-12 00:30 | XMS_ITS | Encounter Summary ---
Author Organization Health system Address [address] [place] [address] Care Team Providers Care Fruit Rancher Name Role Phone Izabella Moise MD Primary Care Provide r Unavailable Encounter Details Date Type Department Care Team (Late st Contact Info) Description 05/01/2006 Results Only [facility] [place] [address] [place] [address] Sofia Obrien FNP [address] [place], [place] [id number] Social History Tobacco Use Types Packs/Day Years [...] when reading/interpreti ng unformatted reports. Name: ? SEEMA BILLIE L ? Accession #: ? [id number] : ? 1970 (Age: 35) ??F ?Collect Date: ? 05/01/2006 Location: ? [facility] ? Receive Date: ? 05/03/2006 Provider: ?SOFIA OBRIEN ACCOUNT SERVICES SPECIALIST Copy to: ? Specimen/Source: ?ThinPrep Pap Test, Cervix/Endocervix, processed on [employer] ThinPrep Imaging System, with manual evaluation Last [...] Date: ??05/04/2006 13:53 End of Report [facility] TO [facility] 05/01/2006 05/03/2006 us Sofia DOWDP PATHOLOGY ORDERABLES Final Resul t [facility] [address] [place] [address] documented in this encounter Visit Diagnoses Not on filedocumented in this encounter Care Teams Fruit Rancher Relationship Specialty Start Date End Date Izabella Moise MD PCP - General 07/26/0805/26 documented as of this encounter
--- NOTE | 2024-04-12 06:30 | DI.US_ITS ---
Exam(s) US PELVIS TRANSVAGINAL EXAM: US PELVIS TRANSVAGINAL CLINICAL HISTORY: pelvic pain,pelvic congestion,n94.89 TECHNIQUE: Transabdominal and transvaginal imaging was performed using standard protocol. COMPARISON: CT CT ABDOMEN PELVIS W from 03/07/2024 FINDINGS: UTERUS: Anteverted. Arm 5.5 x 2.5 x 3.7 cm Endometrium: 4 mm Myometrium: Unremarkable. Cervix: Unremarkable. OVARIES: Right: Cyst or mass: None. Left: Cyst or mass: None. DOPPLER: Color: Symmetric and uniform flow to both ovaries. No hyperemia. Dilated left pelvic veins may indic ate pelvic congestion syndrome. CUL-DE-SAC: Free fluid: None. IMPRESSION: 1. Normal-appearing uterus with endometrial stripe within normal limits. 2. Unremarkable bilateral ovaries. In 3. Dilated left pelvic veins could indicate pelvic congestion syndrome. DATA REPOSITORY:
== END 2024-04-12 00:45 ==
PROVIDERS: PCP Nurse Practitioner Family; Visit Provider Nurse Practitioner Family
DX: N94.89 Other specified conditions associated with female genital organs and menstrual cycle (principal)
CPT/HCPCS: 76830; 76856

== ENCOUNTER 2024-04-12 00:37 | Outpatient (CLI) | payer MEDICAID, SELFPAY ==
--- NOTE | 2024-04-12 06:30 | DI.US_ITS ---
Exam(s) US ABDOMEN EXAM: US ABDOMEN CLINICAL HISTORY: abd pain,f/u spleen,pancreas on ct TECHNIQUE: Ultrasound abdomen performed using standard protocol. COMPARISON: CT ABD PELVIS WITH CONTRAST from 07/15/[address] chest PE CTA from 01/05/[address] ABDOMEN PELVIS W from 03/07/2024 FINDINGS: LIVER: Normal size and echogenicity. No focal liver lesions are seen. GALLBLADDER: No evidence of cholelithiasis. No evidence of wall thickening. No pericholecystic fluid identified. VALDEZ'S SIGN: Negative. BILIARY SYSTEM: No intrahepatic or extrahepatic biliary ductal dilation. KIDNEYS: Kidneys are symmetric in size. No evidence of renal calculi. No evidence of hydronephrosis. No renal mass or cyst identified. PANCREAS: Normal where visualized. No detectable fluid around pancreatic tail. SPLEEN: The spleen has a vertical orientation and is not appear enlarged volume platt. The appearance appears unchanged from 2017. ABDOMINAL AORTA AND IVC: Visualized portions normal caliber. ASCITES: None seen. IMPRESSION: Normal sonographic appearance of the upper abdomen. DATA REPOSITORY:
== END 2024-04-12 00:57 ==
LOC: DI 00:37
PROVIDERS: PCP Nurse Practitioner Family; Visit Provider Nurse Practitioner Family
DX: R10.9 Unspecified abdominal pain (principal)
CPT/HCPCS: 76700

== ENCOUNTER 2024-05-14 16:08 | Emergency (ER) | payer MEDICAID, SELFPAY ==
[2024-05-14] VITALS (17 sets, daily range): BP systolic 146–164; BP diastolic 90–99; PULSE 83–115; RESP 18–27; TEMP 37; O2SAT 78–99
--- NOTE | 2024-05-14 16:15 | RT.EKG_ITS ---
APPROVED REPORT Exam: Resting ECG Reason for Exam: SOB Patient Location: E HR:103 bpm ECG Measurements Heart Rate 103 AXIS KS 110 P 68 QRSd 83 QRS 74 QT 336 T 49 QTc 440 Conclusion Sinus tachycardia 103 normal axis no stemi
--- NOTE | 2024-05-14 16:27 | ED.GENADUL_ITS ---
Discharge Plan Disposition Patient Disposition: Home Condition: Stable Discharge Details Clinical Impression: Right middle lobe pneumonia Primary Care Provider: Yumiko Tyler ED Provider: Linh Gao Home Meds and New Rx's Prescriptions: New doxycycline hyclate 100 mg tablet 100 mg PO BID 10 Days Qty: 20 0RF No Action mecobalamin (vitamin B12) 1,000 mcg tablet,chewable 1,000 mcg PO DAILY ondansetron 4 mg tablet,disintegrating 4 mg PO Q8H PRN (Reason: nausea and vomiting) Qty: 20 0RF scopolamine base 1 mg over 3 days patch 3 day 1 patch transdermal Q3D PRN (Reason: nausea and vomiting) Qty: 4 0RF Discharge Instructions Instructions: Pneumonia, Adult ED Additional Instructions: Today you have tested negative for COVID flu and RSV. You do have a moderate right middle lobe pneumonia. No evidence of blood clots in your lungs. Please take the antibiotic twice daily with yogurt or a probiotic as directed. You are given the first tablet here in the emergency department. Please move around as much as possible. Cough and deep breathe. Please take Tylenol or Ibuprofen with food every 4-6 hours as needed for pain and swelling. Increase oral fluids. Follow up with primary care provider in 3-5 days. Return to ED sooner if any worsening or concerns. Please have a repeat chest x-ray in approximately 1 to 2 weeks. Thank you for allowing us to care for you today. Referrals: Yumiko Tyler CUSTOMER ACCOUNT REPRESENTATIVE [Primary Care Provider] - 1 week HPI General Mode of arrival: ambulatory . Date/Time Provider Initiated Documentation: 05/14/24 16:09 . Limitations to Documentation: no limitations . Information obtained by: patient, RN notes reviewed and old records reviewed . HPI Narrative: 53-year-old female presents to the ER after being seen by her PCP today with a chief complaint of increased fatigue, productive cough, diarrhea nausea chills and shallow breathing and shortness of breath after being diagnosed with the flu approximately a week ago. She denies any abdominal pain or problems urinating. She is slightly tachycardic after walking approximately 111, she is complaining of some right sided chest pain with deep breathing. She does use a CPAP machine at home at night. History of sleep apnea, pancreatitis, breast cancer, menopausal, she does have a history of radiation from the breast cancer, Related Data Home Medications ?Medication ?Instructions ?Recorded ?Confirmed ondansetron 4 mg disintegrating 4 mg PO Q8H PRN nausea and 03/08/24 05/14/24 tablet vomiting #20 tabs mecobalamin (vitamin B12) 1,000 1,000 mcg PO DAILY 04/11/24 05/14/24 mcg chewable tablet scopolamine base 1 mg over 3 days 1 patch transdermal Q3D PRN nausea 04/16/24 05/14/24 transdermal patch and vomiting #4 ea doxycycline hyclate 100 mg tablet 100 mg PO BID 10 days #20 tabs 05/14/24 Previous Rx's ?Medication ?Instructions ?Recorded ondansetron 4 mg disintegrating 4 mg PO Q8H PRN nausea and 03/08/24 tablet vomiting #20 tabs scopolamine base 1 mg over 3 days 1 patch transdermal Q3D PRN nausea 04/16/24 transdermal patch and vomiting #4 ea doxycycline hyclate 100 mg tablet 100 mg PO BID 10 days #20 tabs 05/14/24 Allergies Allergy/AdvReac Type Severity Reaction Status Date / Time azithromycin Allergy Severe Hives Verified 05/14/24 16:17 chlorhexidine Allergy Intermediate hives, itch Verified 05/14/24 16:17 erythromycin lactobionate Allergy Intermediate Hives Verified 05/14/24 16:17 (From Erythrocin) hydromorphone (From Dilaudid) AdvReac Severe Other (See Verified 05/14/24 16:17 Comment) General Stated Complaint: RespSymp ELIEL: 3 Review of Systems All systems reviewed & are unremarkable except as noted in HPI and below Constitutional Constitutional: Reports as per HPI, Reports chills, Reports fatigue and Reports lethargy Cardiovascular Cardiovascular: Reports chest pain and Reports dyspnea Respiratory Respiratory: Reports cough, Reports pain on inspiration and Reports dyspnea Endocrine Endocrine: Reports fatigue Exam Narrative Exam Narrative: Constitutional: Alert and oriented x3. Appears stated age. Normal body habitus. Head: Normocephalic, no trauma. Eyes: Pupils PERRL, Red reflex noted, EOM's intact. Eyelids symmetrical without lesions, discharge, or swelling. ENT: Bilateral TM's WNL, External ear normal to inspection, no mastoid TTP, swelling, or erythema, Nasal turbinates WNL, no nasal discharge. Normal dentition, Posterior pharynx WNL, no exudate. Chest: Sinus tachycardia, intermittently, normal S1, S2, distal pulses intact. Resp: Lungs clear to auscultation bilaterally, no wheezes, rales, or rhonchi. Abdomen: Soft, non-distended, Normoactive bowel sounds all 4 quads. Musculoskeletal: Normal gait, Moves all 4 extremities without difficulty. Skin: No suspicious rashes or lesions. Capillary refill less than 2 sec. Neurologic: Cranial nerves II-XII intact. Alert and oriented x 3. Motor: No deficits noted. Sensory: Intact bilaterally all 4 extremities. Hematologic/Lymphatic: No ecchymosis, no lymphadenopathy. Course Vital Signs Vital signs: Vital Signs Temperature 37.0 C 05/14/24 16:14 Pulse 83 05/14/24 16:14 Respiratory Rate 18 05/14/24 16:14 Blood Pressure 146/93 H 05/14/24 16:14 Pulse Oximetry 96 05/14/24 16:14 Temperature 37.0 C 05/14/24 16:14 Temperature Source Oral 05/14/24 16:14 Pulse 83 05/14/24 16:14 Respiratory Rate 18 05/14/24 16:14 Blood Pressure 146/93 H 05/14/24 16:14 Blood Pressure Position Sitting 05/14/24 16:14 Pulse Oximetry 96 05/14/24 16:14 Oxygen Delivery Method Room Air 05/14/24 16:14 Oxygen Flow Rate 0 05/14/24 16:14 Pain Level 7 05/14/24 16:14 Lab/Test Results Lab/Test Results: 05/14/24 16:25 Blood Blood Culture - Pending 05/14/24 16:25 Blood Blood Culture - Pending Medical Decision Making 53-year-old female presents to the ER after being seen by her PCP today with a chief complaint of increased fatigue, productive cough, diarrhea nausea chills and shallow breathing and shortness of breath after being diagnosed with the flu approximately a week ago. She denies any abdominal pain or problems urinating. She is slightly tachycardic after walking approximately 111, she is complaining of some right sided chest pain with deep breathing. Workup ordered including EKG, CBC CMP lactate D-dimer blood cultures x 2, Fluvid swab chest x-ray and troponin. EKG was reviewed by Dr. Harp and myself ER attending, old EKG available for review. No significant change from previous.\ Chest x-ray shows a moderate right middle lobe infiltrate. Gram of Rocephin IVPB and doxycycline 100 mg p.o. ordered and albuterol inhaler.. No leukocytosis, absolute neutrophils 7.64, D-dimer is elevated greater than 2000, alk phos 134 albumin 2.7 negative COVID flu RSV. Will order chest CT to rule out PE. No evidence of PE. 2 tablets of doxycycline given to go. Will discuss strict return instructions and home care. This text was generated using Start[employer]ation system, please disregard any oddities of phrase or misspellings. Medical Records Medical records reviewed: Yes I reviewed the patient's medical records. Imaging Data Radiologic Study: Imaging: X-Ray Radiologist's impression: EXAM: XR CHEST 2V PA LATERAL CLINICAL HISTORY: SOB, Productive cough. TECHNIQUE: 2D digital imaging was performed. COMPARISON: CR XR CHEST 2V PA LATERAL from 11/09/2023 FINDINGS: 2 views: Heart size is normal. The mediastinum is not widened. Scoliosis again noted Left lung is clear. However, there is a large area of infiltrate in the right middle lobe now evident. No pleural effusions. IMPRESSION: Prominent infiltrate in the right middle lobe, most probably infectious. No pleural effusions. Radiologic Study #2: Imaging: CT Scan Radiologist's impression: ); COMPARISON: CT CHEST PE CTA 10/21/2022 7:40 PM FINDINGS: Pulmonary arteries: No evidence of pulmonary embolus to the segmental level. Aorta: No aneurysm of the aorta. No dissection of the aorta. Lungs: Consolidation in the right middle lobe with air bronchograms consistent with pneumonia. Additional opacities in the right lower lobe consistent with pneumonia . Pleural spaces: Mild bilateral pleural effusions Heart: Unremarkable. No cardiomegaly. No pericardial effusion. Lymph nodes: Unremarkable. No enlarged lymph nodes. Bones/joints: Unremarkable. No acute fracture. Soft tissues: Unremarkable. BILLIE DOLL Preliminary Radiology Report PRODUCT SAFETY ADMINISTRATOR (QA) DISCREPANCY? If there is a discrepancy between the preliminary and final interpretation, please notify [facility] via [email or web address] If you do not have access to our QA portal, call our QA team at [phone] CONFIDENTIALITY STATEMENT This report is intended only for the use of the referring physician, and only in accordance with law, If you received this in error, call Page 2 of 2 IMPRESSION: 1. No evidence of pulmonary embolus to the segmental level. 2. No aneurysm of the aorta. 3. No dissection of the aorta. 4. Consolidation in the right middle lobe with air bronchograms consistent with pneumonia. Additional opacities in the right lower lobe consistent with pneumonia . Thank you for allowing us to participate in the care of your patient. Dictated and Authenticated by: Faustina Perdue MD Lab Data Lab results reviewed: Yes I reviewed the patient's lab results. Labs: 05/14/24 18:10 Blood Blood Culture - Pending 05/14/24 17:00 Blood Blood Culture - Pending Laboratory Tests Range/Units 05/14/24 05/14/24 05/14/24 17:00 17:15 17:26 WBC (4.4-10.8) 10^3/uL 9.91 RBC (3.93-5.22) 10^6/uL 3.97 Hgb (11.2-15.7) g/dL 12.4 Hct (36.0-46.0) % 37.1 MCV (80-95) fL 94 MCH (27.0-33.0) pg 31.2 MCHC (32.0-36.0) % 33.4 RDW (11.7-14.6) % 12.5 Plt Count (130-400) 10^3/uL 264 MPV (8.0-11.0) fL 9.6 Immature Gran % % 2.4 Neutrophils % % 77.1 Lymphocytes % % 11.6 Monocytes % % 6.9 Eosinophils % % 1.5 Basophils % % 0.5 Nucleated RBC % (0.0-0.3) % 0.0 Absolute Neutrophils (1.2-6.7) 10^3/uL 7.64 H Absolute Lymphocytes (1.2-3.4) 10^3/uL 1.15 L Absolute Monocytes (0.1-0.8) 10^3/uL 0.68 Absolute Eosinophils (0.0-0.7) 10^3/uL 0.15 Absolute Basophils (0.0-0.2) 10^3/uL 0.05 D-Dimer (<500) ng/mlFEU VBG Lactate (<or=2.0) mmol/L 0.6 Sodium (136-145) mmol/L 142 Potassium (3.5-5.1) mmol/L 3.7 Chloride (98-107) mmol/L 105 Carbon Dioxide (21.0-32.0) mmol/L 29.2 Anion Gap (3-11) mmol/L 7.8 BUN (7-18) mg/dL 12 Creatinine (0.55-1.02) mg/dL 0.7 Est GFR (CKD-EPI 2020) (mL/min/1.73m2) 104.00 Glucose (74-106) mg/dL 94 Calcium (8.5-10.1) mg/dL 9.1 Total Bilirubin (0.2-1.0) mg/dL 0.22 AST (15-37) U/L 24 ALT (14-59) U/L 40 Alkaline Phosphatase (46-116) U/L 134 H Troponin I (<or=51) ng/L 10 Cancelled Total Protein (6.4-8.2) g/dL 7.3 Albumin (3.4-5.0) g/dL 2.7 L COVID-19 Source Nasopharynx SARS-CoV-2 (PCR) (Negative) Negative Influenza Type A (PCR) (Negative) Negative Influenza Type B (PCR) (Negative) Negative RSV (PCR) (Negative) Negative Range/Units 05/14/24 05/14/24 18:10 19:26 WBC (4.4-10.8) 10^3/uL RBC (3.93-5.22) 10^6/uL Hgb (11.2-15.7) g/dL Hct (36.0-46.0) % MCV (80-95) fL MCH (27.0-33.0) pg MCHC (32.0-36.0) % RDW (11.7-14.6) % Plt Count (130-400) 10^3/uL MPV (8.0-11.0) fL Immature Gran % % Neutrophils % % Lymphocytes % % Monocytes % % Eosinophils % % Basophils % % Nucleated RBC % (0.0-0.3) % Absolute Neutrophils (1.2-6.7) 10^3/uL Absolute Lymphocytes (1.2-3.4) 10^3/uL Absolute Monocytes (0.1-0.8) 10^3/uL Absolute Eosinophils (0.0-0.7) 10^3/uL Absolute Basophils (0.0-0.2) 10^3/uL D-Dimer (<500) ng/mlFEU 2014 H VBG Lactate (<or=2.0) mmol/L Sodium (136-145) mmol/L Potassium (3.5-5.1) mmol/L Chloride (98-107) mmol/L Carbon Dioxide (21.0-32.0) mmol/L Anion Gap (3-11) mmol/L BUN (7-18) mg/dL Creatinine (0.55-1.02) mg/dL Est GFR (CKD-EPI 2020) (mL/min/1.73m2) Glucose (74-106) mg/dL Calcium (8.5-10.1) mg/dL Total Bilirubin (0.2-1.0) mg/dL AST (15-37) U/L ALT (14-59) U/L Alkaline Phosphatase (46-116) U/L Troponin I (<or=51) ng/L Cancelled Total Protein (6.4-8.2) g/dL Albumin (3.4-5.0) g/dL COVID-19 Source SARS-CoV-2 (PCR) (Negative) Influenza Type A (PCR) (Negative) Influenza Type B (PCR) (Negative) RSV (PCR) (Negative) Quality:SDOH Health Related Social Needs: No Data to Display PFSH All Active Problems (Updated 05/14/24 @ 20:51 by Linh Gao NP) Right middle lobe pneumonia (Acute) Dyspnea (Acute) Atrophic vaginitis (Acute) Bilateral hip pain (Acute) Osteoarthritis (Chronic) Migraine (Chronic) Chemotherapy-induced peripheral neuropathy (Chronic) last dose +10 years ago Bilateral carpal tunnel syndrome (Acute) Cubital tunnel syndrome on right (Acute) ÁNGEL (obstructive sleep apnea) (Chronic) Nonsustained ventricular tachycardia (Acute) Intermittent palpitations (Acute) Paresthesias (Acute) Peripheral neuropathy (Acute) GERD (gastroesophageal reflux disease) (Chronic) Low back pain (Acute) Cold intolerance (Acute) Medical History Anxiety about health Hyperacusis of both ears Tinnitus of both ears Pelvic congestion Only on imaging, clinical sxms do not correlate. COVID-19 Overactive bladder Urge incontinence Urinary frequency H/O abnormal cervical Papanicolaou smear Dec 2019: Normal/negative Dec 2017: ASCUS/HPV+ ->colp: benign September 2015: LSIL/HPV+ -->[place]: DANTE 2/3-> LEEP: CIN2, negative margins September 2014: NIL/HPV+ 2009 & 2011: NIL/negative Hx of breast cancer (01/22/13) 01/2005. L breast T2N0M0. Infiltrating ductal carcinoma. s/p chemo and XRT. 07/2007. T1N0M0. Adjuvant chemo. 10/2008.Bilateral prophylactic mastectomy. Staged breast reconstruction Neg BRCA-1,2. ANGELA neg. History of postoperative nausea COVID-19 (~10/25/21) Increased body mass index (BMI) Abdominal pain, RLQ Right flank pain Esotropia Menopause Duodenal ulcer Shoulder joint pain Pruritus Knee joint pain Arm paresthesia, left Hyperlipidemia Chest pain Pt. states she had this fully worked up, it was not chest pain, but she was dehydrated. 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 Achilles tendinitis, right leg s/p open debridement of calcaneal bone spurs and calcific achilles tendinitis with joaquin resection and achilles repair DOS 10/06/2020. History of lumpectomy of right breast History of reversal of tubal ligation History of lumpectomy of left breast History of bunionectomy H/O tubal ligation Hx of Achilles tendon repair breast reconstruction Breast, Mastectomy Bilateral Family History Father Hypothyroidism Hyperlipidemia CAD (coronary artery disease) Depression COPD (chronic obstructive pulmonary disease) Mother Hypothyroidism Goiter Memory impairment Sister , 54 Breast cancer Sister Depression Sister Depression Hypothyroidism Daughter No problems noted. Maternal Grandfather , 70's Cancer Bladder Cancer Paternal Grandfather , 40's Heart disease Maternal Grandmother , 90's Depression Paternal Grandmother , 80's Breast cancer Social History Smoking/Tobacco Use Status: Never Second Hand Exposure: Yes Smoking risk assessment performed?: Yes Alcohol Intake: current Alcohol Intake frequency: holidays/special occasions only Drug use: Never Substance use type: does not use Caregiver/Support person: No Household members: significant other Housing: house Number of Children: 1 Communication Needs: None Do you need help understanding health information?: Never 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 Pets and animals: Yes Pets and animals: dog(s) Sexually active: Yes Do you think of yourself as: straight/heterosexual Current gender identity: female What is your relationship status?: living with partner How often do you talk on the phone with friends or family?: three or more times per week How often do you get together with friends or relatives?: three or more times per week How often do you attend restorationist or pentecostalism services?: 4 or more times per year Do you belong to any clubs or organized social groups?: yes Panel score (0-1 are the most socially isolated patients): 4 What type of physical activity do you participate in: none Frequency: other Details: occasionally, due to fatigue. Diana/Moravian: Jewish Special diana needs: No Seatbelt use: always Helmet use: Yes Helmet use: always Drive intox or ride w/intox fire truck driver: No Do you feel safe at home: Yes Do you feel safe in your relationship?: Yes Female Reproductive History Menstrual Date of menopause: 03/27/06 History History 2 Para 1 Hx # Term Pregnancies 1 Multiple births Hx # Pregnancies Ectopic pregnancies AB induced Hx Number of Living Children 1 AB spontaneous 1 Past Pregnancies Del. Date GA/Weeks # Preg Succ Route Wgt Sex Labor Lgth Anesth esia Location [facility] 06/25/93 No Yes vaginal 3260.195 g Female [facility]
[2024-05-14 17:19] LABS: Lactate 0.6 mmol/L (<or=2.0)
[2024-05-14 17:20] LABS: Abs Immature Grans 0.24 10^3/uL (0.0-0.06); Absolute Basophil Count 0.05 10^3/uL (0.0-0.2); Absolute Eosinophil Count 0.15 10^3/uL (0.0-0.7); Absolute Lymphocyte Count 1.15 10^3/uL (1.2-3.4); Absolute Monocyte Count 0.68 10^3/uL (0.1-0.8); Absolute Neutrophil Count 7.64 10^3/uL (1.2-6.7); Basophils % 0.5 %; Eosinophils % 1.5 %; HCT 37.1 % (36.0-46.0); HGB 12.4 g/dL (11.2-15.7); Immature Grans % 2.4 %; Lymphocytes % 11.6 %; MCH 31.2 pg (27.0-33.0); MCHC 33.4 % (32.0-36.0); MCV 94 fL (80-95); MPV 9.6 fL (8.0-11.0); Monocytes % 6.9 %; Neutrophils % 77.1 %; Platelet Count 264 10^3/uL (130-400); RBC 3.97 10^6/uL (3.93-5.22); RDW 12.5 % (11.7-14.6); RDW-SD 43.1 fL; WBC 9.91 10^3/uL (4.4-10.8)
--- NOTE | 2024-05-14 17:24 | DI.RAD_ITS ---
Exam(s) XR CHEST 2V PA LATERAL EXAM: XR CHEST 2V PA LATERAL CLINICAL HISTORY: SOB, Productive cough. TECHNIQUE: 2D digital imaging was performed. COMPARISON: CR XR CHEST 2V PA LATERAL from 11/09/2023 FINDINGS: 2 views: Heart size is normal. The mediastinum is not widened. Scoliosis again noted Left lung is clear. However, there is a large area of infiltrate in the right middle lobe now eviden t. No pleural effusions. IMPRESSION: Prominent infiltrate in the right middle lobe, most probably infectious. No pleural effusions. DATA REPOSITORY: RADIATION DOSE DELIVERED:
[2024-05-14 17:39] LABS: ALT 40 U/L (14-59); AST 24 U/L (15-37); Albumin 2.7 g/dL (3.4-5.0); Alkaline Phosphatase 134 U/L (46-116); Anion Gap 7.8 mmol/L (3-11); BUN 12 mg/dL (7-18); Bilirubin, Total 0.22 mg/dL (0.2-1.0); CO2 29.2 mmol/L (21.0-32.0); CREATININE 0.7 mg/dL (0.55-1.02); Calcium 9.1 mg/dL (8.5-10.1); Chloride 105 mmol/L (98-107); Glucose 94 mg/dL (74-106); Potassium 3.7 mmol/L (3.5-5.1); Sodium 142 mmol/L (136-145); Total Protein 7.3 g/dL (6.4-8.2); Troponin I 10 ng/L (<or=51)
[2024-05-14] MEDS: Doxycycline Hyclate 100 MG CAP PO (17:57)
[2024-05-14] MEDS: Albuterol HFA 8 GM 60 PUFF INH IH (17:57)
[2024-05-14] MEDS: cefTRIAXone 1 GM/50 ML BAG IVPB (17:58)
[2024-05-14 18:00] LABS: COVID-19 PCR Negative (Negative); Influenza A PCR Negative (Negative); Influenza B PCR Negative (Negative); RSV PCR Negative (Negative)
[2024-05-14 18:01] LABS: Source Nasopharynx
[2024-05-14] MEDS: Inhaler, Assist Device 1 EACH MC (18:05)
[2024-05-14 18:41] LABS: D-Dimer 2015 ng/mlFEU (<500)
[2024-05-14] MEDS: Doxycycline Hyclate 100 MG, 2 CAPS/BTL PO (19:15)
[2024-05-14] MEDS: Omnipaque 350 MG/ML 100 ML BTL 75 ML IJ (19:45)
[2024-05-14] MEDS: Normal Saline - Diluent 50 ML VIAL IJ (19:46)
--- NOTE | 2024-05-14 19:48 | DI.CT_ITS ---
Exam(s) CT CHEST PE CTA EXAM: CT CHEST PE CTA CLINICAL HISTORY: Elevated Dimer, SOB, CP. TECHNIQUE: Imaging Protocol: Axial CT angiography was performed with multi-slice acquisition and mu lti-planar and/or 3D reconstructions. Lung Computer Aided Detection (CAD) was utilized. CONTRAST MATERIAL: Intravenous: Omnipaque 350 contrast volume:99 mL COMPARISON: CT CT CHEST PE CTA from 10/21/[address] ABDOMEN PELVIS W from 03/07/2024 CR XR CHEST 2V PA LATERAL from 05/14/2024 FINDINGS: The examination is limited due to patient motion artifact. Tracheobronchial tree: Patent where visualized. No bronchiectasis. Pulmonary parenchyma: There is loss of volume in consolidation of the right middle lobe with air bron chograms present. Airspace opacities are seen in the right upper and right lower lobes. There is a small right pleural effusion. There is a 2 mm nodule in the lateral aspect of the right upper lobe ( series 12, image 60). The left lung is clear part from mild dependent atelectasis. Pulmonary Arteries: No evidence of filling defect to suggest pulmonary emboli. Mediastinum and Deloris: No dominant adenopathy or fluid collection. The esophagus is unremarkable. Visualized thyroid gland: Unremarkable. Pleura: There is no pneumothorax. No left pleural effusion. Heart: The heart is not dilated. No coronary artery calcifications are seen. No pericardial effusion. Aorta: Thoracic aorta non-dilated. No evidence of dissection. Upper abdomen: Unremarkable. Soft tissues: Unremarkable. Bones: Within normal limits for the patient's age.There is a right convex thoracic scoliosis. IMPRESSION: 1. No evidence of pulmonary embolism, thoracic aortic dissection or aneurysm. 2. Area of consolidation in the right middle lobe with air bronchograms. Airspace opacities are also seen in the right upper lobe and right lower lobes. The findings are suspicious for pneumonia. A f ollow-up examination is recommended to document complete resolution and to exclude an underlying the etiology. 3. 2 mm nodule in the right upper lobe. Solid nodules smaller than 6 mm do not require routine follow-up in all patients with high clinical r isk; however, some nodules smaller than 6 mm with suspicious morphology, upper lobe location, or both may warrant follow-up at 12 months (grade 2A; weak recommendation, high-quality evidence). (Rona et al., 2017) Single solid noncalcified nodules. ???Solid nodules smaller than 6 mm (those 5 mm or smaller) do not require routine follow-up in patients at low risk (grade 1C; strong recommendation, low- or very-low- quality evidence). (Rona et al., 2017) 4. Small right pleural effusion. Unexpected findings RADIATION DOSE DELIVERED: 80.18mGy.cm Total DLP DATA REPOSITORY: All CT scans at this facility are submitted to the National Radiology Data Registry (NRDR) Dose Index Registry (DIR) with the [employer] (ACR). RADIATION OPTIMIZATION: All CT scans at this facility use at least one of these dose optimization te chniques: automated exposure control; mA and/or kV adjustment per patient size (includes targeted exa ms where dose is matched to clinical indication); or iterative reconstruction.
--- NOTE | 2024-05-14 20:48 | DI.VRAD_ITS ---
PROCEDURE INFORMATION: Exam: CTA Chest With Contrast Exam date and time: 05/14/2024 7:41 PM Age: 53 years old Clinical indication: Pain; Shortness of breath; Chest pressure; Elevated dimer, SOB, cp TECHNIQUE: Imaging protocol: Computed tomographic angiography of the chest with contrast. Exam focused on the arteries. 3D rendering (Not supervised by radiologist): MIP and/or 3D reconstructed images were created by the technologist. Radiation optimization: All CT scans at this facility use at least one of these dose optimization techniques: automated exposure control; mA and/or kV adjustment per patient size (includes targeted exams where dose is matched to clinical indication); or iterative reconstruction. Contrast material: OMNIPAQUE 350; Contrast volume: 75 ml; Contrast route: INTRAVENOUS (IV); COMPARISON: CT CHEST PE CTA 10/21/2022 7:40 PM FINDINGS: Pulmonary arteries: No evidence of pulmonary embolus to the segmental level. Aorta: No aneurysm of the aorta. No dissection of the aorta. Lungs: Consolidation in the right middle lobe with air bronchograms consistent with pneumonia. Additional opacities in the right lower lobe consistent with pneumonia . Pleural spaces: Mild bilateral pleural effusions Heart: Unremarkable. No cardiomegaly. No pericardial effusion. Lymph nodes: Unremarkable. No enlarged lymph nodes. Bones/joints: Unremarkable. No acute fracture. Soft tissues: Unremarkable. IMPRESSION: 1. No evidence of pulmonary embolus to the segmental level. 2. No aneurysm of the aorta. 3. No dissection of the aorta. 4. Consolidation in the right middle lobe with air bronchograms consistent with pneumonia. Additional opacities in the right lower lobe consistent with pneumonia . Dictated and Authenticated by: Faustina Perdue MD. Orderin Murray Melton MD
== END 2024-05-14 21:04 | disposition home or self-care (01) ==
PROVIDERS: Emergency Provider Registered Nurse Emergency; PCP Nurse Practitioner Family
DX: J18.9 Pneumonia, unspecified organism (principal)
CPT/HCPCS: 36415; 71275; 80053; 87040; 87637; 93005; 96365; 99285; 71046; 83605; 84484; 85025; 85379; 93010; J0696; J3490

== ENCOUNTER 2024-06-11 10:33 | Outpatient (REF) | payer MEDICAID, SELFPAY ==
--- NOTE | 2024-06-11 10:15 | PAPFT_PTH ---
PATIENT: Antonia Jennings LOC: [facility] U#:[id number] AGE/SX: 53/F ROOM: RE06/11/[address]: Tari Hillman MD : 1970 BED: DIS: 06/11/2024 SPEC #: [id number] RECD: 06/11/24 18:00 STATUS: [place] REBlake #: [id number] PETE: 06/11/24 10:[address]: Tari Hillman DEPT: [facility] Cytology RECD BY: Alondra Wright ENTERED: 06/11/24 18:00 SP TYPE: PAPFT OTHR DR: Yumiko Tyler, LOAN OPERATIONS SPECIALIST Tissues: 1 - CX/ENDOCX FOR PAP SMEARS Procedures: PAP THIN PREP/[facility] Screening HPV DNA PROBE Comments: [id number] (HPV 16 & 18/45)
== END 2024-06-11 10:34 | disposition home or self-care (01) ==
LOC: LBN 10:33
PROVIDERS: PCP Nurse Practitioner Family; Visit Provider Obstetrics & Gynecology
DX: Z12.4 Encounter for screening for malignant neoplasm of cervix (principal); Z01.419 Encounter for gynecological examination (general) (routine) without abnormal findings
CPT/HCPCS: 88142; 87624

== ENCOUNTER 2024-06-19 02:23 | Outpatient (CLI) | payer MEDICAID, SELFPAY ==
[2024-06-19 12:38] LABS: Calculated LDL 156 mg/dL (<100); Cholesterol 258 mg/dL (<200); HDL Cholesterol 94 mg/dL (>or=50); Hemoglobin A1C 5.7 % (<5.7); Triglyceride 40 mg/dL (<150)
== END 2024-06-19 02:24 | disposition home or self-care (01) ==
LOC: LOS 02:23
PROVIDERS: PCP Nurse Practitioner Family; Visit Provider Nurse Practitioner Family
DX: Z00.00 Encounter for general adult medical examination without abnormal findings (principal); K21.9 Gastro-esophageal reflux disease without esophagitis; G47.33 Obstructive sleep apnea (adult) (pediatric); E78.5 Hyperlipidemia, unspecified
CPT/HCPCS: 36415; 80061; 83036

== ENCOUNTER 2024-07-31 18:59 | Emergency (ER) | payer MEDICAID, SELFPAY ==
[2024-07-31 19:07] VITALS: BP 171/91; PULSE 103; RESP 18; TEMP 37.1; O2SAT 100
[2024-07-31 19:10] VITALS: RESP 18
--- NOTE | 2024-07-31 19:45 | DI.CT_ITS ---
Exam(s) CT CHEST PE CTA EXAM: CT CHEST PE CTA CLINICAL HISTORY: chest pain, swelling. TECHNIQUE: Imaging Protocol: CT angiography of the chest was performed using pulmonary embolus rachid col. Multi planar reconstructions were performed. CONTRAST MATERIAL: Intravenous: Omnipaque 350 Contrast volume: 100 cc COMPARISON: CT CT CHEST PE CTA from 05/14/2024 FINDINGS: CHEST: PULMONARY ARTERIES: There are no intraluminal filling defects to suggest acute pulmonary emboli. LUNGS: The previously present right lung infiltrates have mostly resolved. There are mild remaining increased markings in the right middle lobe and in the inferior lingular segment of the left lung. T he previously present small right pleural effusion is no longer seen. There presently no pleural eff usions. Small 2-3 millimeter nodule in the peripheral aspect of the right upper lobe is unchanged. There are no new ominous pulmonary nodules. There are no findings in the trachea and mainstem bronch i. MEDIASTINUM: There is no hilar nor mediastinal adenopathy. Visualized thyroid unremarkable. CARDIAC: Heart size is upper normal. There is no pericardial effusion.Caliber of the thoracic aorta is upper normal limits. No evidence of dissection. There is no significant shift of the interventric ular septum. PARTIALLY VISUALIZED UPPERMOST ABDOMEN: No obvious findings OSSEOUS: No significant osseous lesions.No fractures. Bidirectional thoracolumbar scoliosis is again noted.. IMPRESSION: 1. No evidence of acute pulmonary emboli. No evidence of pulmonary infarction.No pleural effusions. 2. The previously present infiltrates in the right lung have mostly resolved as has the previously pr esent right pleural effusion. 3. Unchanged small 2-3 mm nodule in the right upper lobe again evident. Solid nodules smaller than 6 mm do not require routine follow-up in all patients with high clinical r isk; however, some nodules smaller than 6 mm with suspicious morphology, upper lobe location, or both may warrant follow-up at 12 months (grade 2A; weak recommendation, high-quality evidence). (Rona et al., 2017) Single solid noncalcified nodules. ???Solid nodules smaller than 6 mm (those 5 mm or smaller) do not require routine follow-up in patients at low risk (grade 1C; strong recommendation, low- or very-low- quality evidence). (Rona et al., 2017) Report called by myself to ER physician 07/31/2024 at 9:21 p.m. RADIATION DOSE DELIVERED: 138.54mGy.cm Total DLP DATA REPOSITORY: All CT scans at this facility are submitted to the National Radiology Data Registry (NRDR) Dose Index Registry (DIR) with the [employer] (ACR). RADIATION OPTIMIZATION: All CT scans at this facility use at least one of these dose optimization te chniques: automated exposure control; mA and/or kV adjustment per patient size (includes targeted exa ms where dose is matched to clinical indication); or iterative reconstruction.
[2024-07-31 20:42] LABS: Abs Immature Grans 0.02 10^3/uL (0.0-0.06); Absolute Basophil Count 0.03 10^3/uL (0.0-0.2); Absolute Eosinophil Count 0.12 10^3/uL (0.0-0.7); Absolute Lymphocyte Count 1.58 10^3/uL (1.2-3.4); Absolute Monocyte Count 0.41 10^3/uL (0.1-0.8); Absolute Neutrophil Count 3.51 10^3/uL (1.2-6.7); Basophils % 0.5 %; Eosinophils % 2.1 %; HCT 40.5 % (36.0-46.0); HGB 13.5 g/dL (11.2-15.7); Immature Grans % 0.4 %; Lymphocytes % 27.9 %; MCHC 33.3 % (32.0-36.0); MCV 93 fL (80-95); MPV 10.2 fL (8.0-11.0); Monocytes % 7.2 %; Neutrophils % 61.9 %; Platelet Count 222 10^3/uL (130-400); RBC 4.35 10^6/uL (3.93-5.22); RDW-SD 44.2 fL; WBC 5.67 10^3/uL (4.4-10.8)
[2024-07-31] MEDS: Omnipaque 350 MG/ML 100 ML BTL IJ (20:46)
[2024-07-31] MEDS: Normal Saline - Diluent 50 ML VIAL IJ (20:47)
--- NOTE | 2024-07-31 21:25 | DI.VRAD_ITS ---
PROCEDURE INFORMATION: Exam: CTA Chest With Contrast Exam date and time: 07/31/2024 8:43 PM Age: 53 years old Clinical indication: Other: Swelling TECHNIQUE: Imaging protocol: Computed tomographic angiography of the chest with contrast. Exam focused on the arteries. 3D rendering (Not supervised by radiologist): MIP and/or 3D reconstructed images were created by the technologist. Contrast material: OMNIPAQUE 350; Contrast volume: 100 ml; Contrast route: INTRAVENOUS (IV); COMPARISON: CT CHEST PE CTA 05/14/2024 7:41 PM FINDINGS: Pulmonary arteries: No pulmonary embolism identified. Aorta: No thoracic aortic aneurysm or dissection. Lungs: No pulmonary consolidation. Mild streaky and platelike atelectasis. Pleural spaces: No pleural effusion or pneumothorax. Heart: Normal-sized heart. Lymph nodes: Scattered small mediastinal lymph nodes, nonspecific. Kidneys: Kidneys partially included in the field of view. Mild hydronephrosis suggested on the left, nonspecific. Bones/joints: Dextroscoliotic curvature through the lower thoracic spine. Lower ribs partially excluded from view and incompletely evaluated. Otherwise, no acute fracture seen among the bones of the chest. Soft tissues: Surgical clips in the anterior chest wall from prior bilateral mastectomy. Asymmetric subcutaneous density in the lateral aspect of the upper chest wall with overlying skin thickening, images 49-102 of series 13, not seen on the prior exam from May 14, 2024. Direct inspection recommended IMPRESSION: 1. Prior bilateral mastectomy. Mild asymmetric subcutaneous density in the left lateral chest wall with skin thickening extending along the mid left anterior chest wall, not seen on the recent comparison exam from May 14, 2024. Direct inspection is recommended. An acute contusion, cellulitis, or edema could have this appearance. Alternative pathology is not excluded. 2. No pulmonary embolism identified. 3. No pulmonary consolidation, pleural effusion, or pneumothorax. Dictated and Authenticated by: Keaton Leos MD. Orderin Anjelica Pérez MD
[2024-07-31 21:33] LABS: ALT 24 U/L (14-59); AST 17 U/L (15-37); Albumin 4.4 g/dL (3.4-5.0); Alkaline Phosphatase 109 U/L (46-116); Anion Gap 8.2 mmol/L (3-11); BUN 30 mg/dL (7-18); Bilirubin, Total 0.3 mg/dL (0.2-1.0); CO2 30.8 mmol/L (21.0-32.0); CREATININE 0.8 mg/dL (0.55-1.02); Calcium 9.7 mg/dL (8.5-10.1); Chloride 103 mmol/L (98-107); Glucose 82 mg/dL (74-106); NT-proBNP 144 pg/mL (<300); Potassium 3.7 mmol/L (3.5-5.1); Sodium 142 mmol/L (136-145); Total Protein 8.2 g/dL (6.4-8.2); Troponin I 17 ng/L (<or=51)
[2024-07-31 21:47] LABS: PTT Activated 26.9 sec (20.6-30.2)
[2024-07-31 21:52] LABS: Troponin I 13 ng/L (<or=51)
[2024-07-31 22:44] VITALS: BP 145/88; RESP 16; TEMP 35.9; O2SAT 97
--- NOTE | 2024-07-31 22:58 | ED.GENADUL_ITS ---
Discharge Plan Disposition Patient Disposition: Home Discharge Details Clinical Impression: Peripheral edema Primary Care Provider: Yumiko Tyler ED Provider: Tish Dejesus Home Meds and New Rx's Prescriptions: No Action cholecalciferol (vitamin D3) 25 mcg (1,000 unit) capsule 25 mcg PO DAILY pufceuleshck-Kr-fzew-minerals 18-0.4 mg tablet 1 tab PO DAILY AM mecobalamin (vitamin B12) 1,000 mcg tablet,chewable 1,000 mcg PO DAILY Discharge Instructions Additional Instructions: Your lab work is very reassuring. Your CT scan does not demonstrate a pulmonary embolism or any signs of heart abnormality. Please continue compression socks and elevation of your feet. You may need to get a compression sleeve for your upper extremity as the lymphedema is likely caused by your mastectomy. Please follow-up with your primary care doctor for reevaluation of these swelling symptoms, they can order any additional outpatient studies. Discharge Data Discharge Date/Time-TO BE ENTERED AT DEPARTURE: 07/31/24 22:45 HPI General Date/Time Provider Initiated Documentation: 07/31/24 19:34 . Limitations to Documentation: no limitations . Information obtained by: patient . HPI Narrative: 53-year-old female with past medical history including breast cancer with bilateral mastectomy presents for evaluation of lower extremity swelling and left arm swelling. She reports that she has noticed this going on for the last couple of weeks. She states that she has a job where she is on her feet a lot and she states that it is she started wearing compression socks and has noticed some improvement. She reports that over the last couple of days her left arm has been swollen. She has recently started exercising again and has been walking. She states that she feels pretty fatigued after the walking and has some shortness of breath. But she denies any chest pain. She reports that with her bilateral mastectomy, she did have some lymph node dissection on the left Related Data Home Medications ?Medication ?Instructions ?Recorded ?Confirmed mecobalamin (vitamin B12) 1,000 1,000 mcg PO DAILY 04/11/24 07/31/24 mcg chewable tablet cholecalciferol (vitamin D3) 25 25 mcg PO DAILY 06/11/24 07/31/24 mcg (1,000 unit) capsule bticbeabcmwp-By-dptm-minerals 18 1 tab PO DAILY AM 06/11/24 07/31/24 mg-0.4 mg tablet Allergies Allergy/AdvReac Type Severity Reaction Status Date / Time azithromycin Allergy Severe Hives Verified 06/11/24 10:09 chlorhexidine Allergy Intermediate hives, itch Verified 06/11/24 10:09 erythromycin lactobionate Allergy Intermediate Hives Verified 06/11/24 10:09 (From Erythrocin) hydromorphone (From Dilaudid) AdvReac Severe Other (See Verified 06/11/24 10:09 Comment) General Stated Complaint: GenMedical ELIEL: 3 Exam Narrative Exam Narrative: Review of Systems: All systems reviewed & are unremarkable except as noted in HPI and below Well-developed, no acute distress NCAT RRR, mild hypertension, no tachycardia Unlabored respiratory effort clear bilaterally no crackles or wheezing, Nondistended abdomen soft Left upper extremity with some edema, neurovascularly intact, good cap refill, bilateral lower extremities with no significant peripheral edema Course Vital Signs Vital signs: Vital Signs Temperature 37.1 C 07/31/24 19:07 Pulse 103 H 07/31/24 19:07 Respiratory Rate 18 07/31/24 19:07 Blood Pressure 171/91 H 07/31/24 19:07 Pulse Oximetry 100 07/31/24 19:07 Temperature 35.9 C L 07/31/24 22:44 Pulse 103 H 07/31/24 19:07 Respiratory Rate 16 07/31/24 22:44 Respiratory Effort Normal 07/31/24 19:10 Blood Pressure 145/88 H 07/31/24 22:44 Pulse Oximetry 97 07/31/24 22:44 Oxygen Delivery Method Room Air 07/31/24 19:07 Oxygen Flow Rate 0 07/31/24 19:07 Pain Level 0 07/31/24 19:07 Lab/Test Results Lab/Test Results: Laboratory Tests Range/Units 07/31/24 07/31/24 07/31/24 20:30 21:15 21:26 WBC (4.4-10.8) 10^3/uL 5.67 RBC (3.93-5.22) 10^6/uL 4.35 Hgb (11.2-15.7) g/dL 13.5 Hct (36.0-46.0) % 40.5 MCV (80-95) fL 93 MCH (27.0-33.0) pg 31.0 MCHC (32.0-36.0) % 33.3 RDW (11.7-14.6) % 13.0 Plt Count (130-400) 10^3/uL 222 MPV (8.0-11.0) fL 10.2 Immature Gran % % 0.4 Neutrophils % % 61.9 Lymphocytes % % 27.9 Monocytes % % 7.2 Eosinophils % % 2.1 Basophils % % 0.5 Nucleated RBC % (0.0-0.3) % 0.0 Absolute Neutrophils (1.2-6.7) 10^3/uL 3.51 Absolute Lymphocytes (1.2-3.4) 10^3/uL 1.58 Absolute Monocytes (0.1-0.8) 10^3/uL 0.41 Absolute Eosinophils (0.0-0.7) 10^3/uL 0.12 Absolute Basophils (0.0-0.2) 10^3/uL 0.03 APTT (20.6-30.2) sec 26.9 Sodium (136-145) mmol/L 142 Potassium (3.5-5.1) mmol/L 3.7 Chloride (98-107) mmol/L 103 Carbon Dioxide (21.0-32.0) mmol/L 30.8 Anion Gap (3-11) mmol/L 8.2 BUN (7-18) mg/dL 30 H Creatinine (0.55-1.02) mg/dL 0.8 Est GFR (CKD-EPI 2020) (mL/min/1.73m2) 88.60 Glucose (74-106) mg/dL 82 Calcium (8.5-10.1) mg/dL 9.7 Magnesium (1.8-2.4) mg/dL 2.0 Total Bilirubin (0.2-1.0) mg/dL 0.3 AST (15-37) U/L 17 ALT (14-59) U/L 24 Alkaline Phosphatase (46-116) U/L 109 Troponin I (<or=51) ng/L 17 13 NT-Pro-B Natriuret Pep (<300) pg/mL 144 Total Protein (6.4-8.2) g/dL 8.2 Albumin (3.4-5.0) g/dL 4.4 Range/Units 07/31/24 22:51 WBC (4.4-10.8) 10^3/uL RBC (3.93-5.22) 10^6/uL Hgb (11.2-15.7) g/dL Hct (36.0-46.0) % MCV (80-95) fL MCH (27.0-33.0) pg MCHC (32.0-36.0) % RDW (11.7-14.6) % Plt Count (130-400) 10^3/uL MPV (8.0-11.0) fL Immature Gran % % Neutrophils % % Lymphocytes % % Monocytes % % Eosinophils % % Basophils % % Nucleated RBC % (0.0-0.3) % Absolute Neutrophils (1.2-6.7) 10^3/uL Absolute Lymphocytes (1.2-3.4) 10^3/uL Absolute Monocytes (0.1-0.8) 10^3/uL Absolute Eosinophils (0.0-0.7) 10^3/uL Absolute Basophils (0.0-0.2) 10^3/uL APTT (20.6-30.2) sec Sodium (136-145) mmol/L Potassium (3.5-5.1) mmol/L Chloride (98-107) mmol/L Carbon Dioxide (21.0-32.0) mmol/L Anion Gap (3-11) mmol/L BUN (7-18) mg/dL Creatinine (0.55-1.02) mg/dL Est GFR (CKD-EPI 2020) (mL/min/1.73m2) Glucose (74-106) mg/dL Calcium (8.5-10.1) mg/dL Magnesium (1.8-2.4) mg/dL Total Bilirubin (0.2-1.0) mg/dL AST (15-37) U/L ALT (14-59) U/L Alkaline Phosphatase (46-116) U/L Troponin I (<or=51) ng/L Cancelled NT-Pro-B Natriuret Pep (<300) pg/mL Total Protein (6.4-8.2) g/dL Albumin (3.4-5.0) g/dL POC- Test(urine) Negative Medical Decision Making Emergent evaluation of arm and leg swelling. Patient does have history of breast cancer and mastectomy and it sounds like she has had more dissection on that left side. She has not previously had lymphedema in that arm. My examination of not appreciating significant lower extremity edema I do not think that the patient has signs or symptoms concerning for a DVT. She also works where she stands quite a bit so there may be a component of dependent edema especially since this has improved with wearing compression socks. Given her history of malignancy, always suspect recurrence and als at higher risk for pulmonary embolism. The patient does not have any tachycardia or hypoxia. Her mild hypertension at arrival I think is more suspicious of a malfitting cough than true hypertension. Lab work was obtained. There is no leukocytosis or anemia. Her electrolytes are within normal limits. Renal function and liver function are both normal as well. Her albumin is also within normal limits at 4.4. Her BNP is not elevated and serial troponins x 2 are also negative. Her EKG did not reveal any acute ischemic changes. A CTA of her chest was obtained, there is no sign of pulmonary edema. There is no sign of a pulmonary embolus. At this time the patient is stable for discharge home. I recommend that she follow-up with her PCP for reevaluation of any ongoing or persistent swelling. I do recommend compression socks and a compression sleeve for her left upper extremity. Quality:SDOH Health Related Social Needs: No Data to Display PFSH All Active Problems (Updated 07/31/24 @ 22:27 by Tish Dejesus MD) Peripheral edema (Acute) Atrophic vaginitis (Acute) Bilateral hip pain (Acute) Osteoarthritis (Chronic) Migraine (Chronic) Chemotherapy-induced peripheral neuropathy (Chronic) last dose +10 years ago Bilateral carpal tunnel syndrome (Acute) Cubital tunnel syndrome on right (Acute) ÁNGEL (obstructive sleep apnea) (Chronic) Nonsustained ventricular tachycardia (Acute) Intermittent palpitations (Acute) Paresthesias (Acute) Peripheral neuropathy (Acute) GERD (gastroesophageal reflux disease) (Chronic) Low back pain (Acute) Cold intolerance (Acute) Medical History (Updated 07/31/24 @ 22:27 by Tish Dejesus MD) Anxiety about health Hyperacusis of both ears Tinnitus of both ears Pelvic congestion Only on imaging, clinical sxms do not correlate. Overactive bladder H/O abnormal cervical Papanicolaou smear Dec 2019: Normal/negative Dec 2017: ASCUS/HPV+ ->colp: benign September 2015: LSIL/HPV+ -->Higginson: DANTE 2/3-> LEEP: CIN2, negative margins September 2014: NIL/HPV+ 2009 & 2011: NIL/negative Hx of breast cancer (01/22/13) 01/2005. L breast T2N0M0. Infiltrating ductal carcinoma. s/p chemo and XRT. 07/2007. T1N0M0. Adjuvant chemo. 10/2008.Bilateral prophylactic mastectomy. Staged breast reconstruction Neg BRCA-1,2. ANGELA neg. History of postoperative nausea COVID-19 (~10/25/21) Abdominal pain, RLQ Right flank pain Esotropia Menopause Duodenal ulcer Shoulder joint pain Knee joint pain Hyperlipidemia Chest pain Pt. states she had this fully worked up, it was not chest pain, but she was dehydrated. 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 Achilles tendinitis, right leg s/p open debridement of calcaneal bone spurs and calcific achilles tendinitis with joaquin resection and achilles repair DOS 10/06/2020. History of lumpectomy of right breast History of reversal of tubal ligation History of lumpectomy of left breast History of bunionectomy H/O tubal ligation Hx of Achilles tendon repair breast reconstruction Breast, Mastectomy Bilateral Family History Father Hypothyroidism Hyperlipidemia CAD (coronary artery disease) Depression COPD (chronic obstructive pulmonary disease) Mother Hypothyroidism Goiter Memory impairment Sister , 54 Breast cancer Sister Depression Sister Depression Hypothyroidism Daughter No problems noted. Maternal Grandfather , 70's Cancer Bladder Cancer Paternal Grandfather , 40's Heart disease Maternal Grandmother , 90's Depression Paternal Grandmother , 80's Breast cancer Social History (Updated 05/29/24 @ 16:30 by Tess Coronel) Smoking/Tobacco Use Status: Never Second Hand Exposure: Yes Smoking risk assessment performed?: Yes Alcohol Intake: current Alcohol Intake frequency: holidays/special occasions only Drug use: Never Substance use type: does not use Adopted: No Caregiver/Support person: No Household members: significant other Housing: house Number of Children: 1 number of grandchildren: 3 Communication Needs: None Education Level: other Details: [employer] Do you need help understanding health information?: Rarely 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 Pets and animals: Yes Pets and animals: dog(s) Sexually active: Yes Do you think of yourself as: straight/heterosexual Current gender identity: female What is your relationship status?: living with partner How often do you talk on the phone with friends or family?: three or more times per week How often do you get together with friends or relatives?: three or more times per week How often do you attend yazdanism or mu-ism services?: 4 or more times per year Do you belong to any clubs or organized social groups?: yes Panel score (0-1 are the most socially isolated patients): 4 What type of physical activity do you participate in: none Frequency: other Details: occasionally, due to fatigue. Diana/Druze: Scientologist Special diana needs: No Seatbelt use: always Helmet use: No Drive intox or ride w/intox drivers' cash clerk: No Firearms in home: Yes Firearms unloaded and locked: Yes Do you feel safe at home: Yes Do you feel safe in your relationship?: Yes Victim of physical abuse: No Victim of emotional abuse: No Victim of sexual abuse: No Would you like helpful sources: No Female Reproductive History Menstrual Date of menopause: 03/27/06 History History 2 Para 1 Hx # Term Pregnancies 1 Multiple births Hx # Pregnancies Ectopic pregnancies AB induced Hx Number of Living Children 1 AB spontaneous 1 Past Pregnancies Del. Date GA/Weeks # Preg Succ Route Wgt Sex Labor Lgth Anesth esia Location [facility] 06/25/93 No Yes vaginal 3260.195 g Female NVR H
== END 2024-07-31 22:45 | disposition home or self-care (01) ==
PROVIDERS: Emergency Provider Emergency Medicine; PCP Nurse Practitioner Family
DX: R60.1 Generalized edema (principal)
CPT/HCPCS: 99285; 99284; 81025; 71275; 80053; 83735; 83880; 84484; 85025; 85730; J3490

== ENCOUNTER 2024-09-23 10:48 | Outpatient (CLI) | payer MEDICAID, SELFPAY ==
--- NOTE | 2024-09-23 10:30 | DI.RAD_ITS ---
Exam(s) XR ANKLE RT COMPLETE EXAM: XR ANKLE RT COMPLETE CLINICAL HISTORY: right ankle pain. TECHNIQUE: 2D digital imaging was performed. Three views. COMPARISON: CR,XR XR ANKLE RT COMPLETE from 09/19/2020 FINDINGS: BONES: No acute fracture is present. No bony destructive lesion is seen. Mild spurring at the malleoli. Prior Achilles tendon repair with metallic anchor in place. Interval resection of the posterior calcaneal enthesophyte. Plantar calcaneal spur. JOINTS: The ankle mortise is normally aligned. SOFT TISSUE: Soft tissue swelling at the region of the distal Achilles with few small calcifications. IMPRESSION: Prior Achilles tendon repair. Soft tissue swelling at the region of the distal Achilles. DATA REPOSITORY: RADIATION DOSE DELIVERED:
== END 2024-09-23 10:49 | disposition home or self-care (01) ==
LOC: DIORS 10:48
PROVIDERS: PCP Nurse Practitioner Family; Visit Provider Physician Assistant
DX: M92.61 Juvenile osteochondrosis of tarsus, right ankle (principal); M76.61 Achilles tendinitis, right leg
CPT/HCPCS: 73610

== ENCOUNTER 2024-10-14 17:48 | Outpatient (REF) | payer MEDICAID, SELFPAY ==
[2024-10-14 21:20] LABS: Glucose Negative (Negative)
[2024-10-14 21:39] LABS: C & S Indicated? Yes
== END 2024-10-14 17:49 | disposition home or self-care (01) ==
LOC: LBN 17:48
PROVIDERS: PCP Nurse Practitioner Family; Visit Provider Nurse Practitioner Family
DX: R39.9 Unspecified symptoms and signs involving the genitourinary system (principal); B96.29 Other Escherichia coli [E. coli] as the cause of diseases classified elsewhere
CPT/HCPCS: 87077; 81003; 81015; 87086; 87186